=== PATIENT | female | born 1945 | race Caucasian/White ===

== ENCOUNTER 2016-05-02 04:18 | Emergency (ER) | payer MEDICARE, MEDICAID ==
[2016-05-02] MEDS ORDERED: IPRATROPIUM/ALBUTEROL 0.5-2.5 MG/3 ML AMPUL NEB ONE (05:07)
[2016-05-02] MEDS ORDERED: PREDNISONE 20 MG TABLET PO ONE (05:07)
[2016-05-02] MEDS ORDERED: ALBUTEROL SULFATE 0.083% NEB 2.5 MG/3 ML AMPUL NEB SCH (05:23)
[2016-05-02 05:56] LABS: ABSOLUTE LYMPHOCYTES (AUTO) 0.4 10^3/uL (0.5-4.7); ABSOLUTE MONOCYTES (AUTO) 0.6 10^3/uL (0.1-1.4); ABSOLUTE NEUT (AUTO) 7.5 10^3/uL (1.7-8.2); BASOPHILS % (AUTO) 0.3 % (0-2); EOSINOPHILS % (AUTO) 0.1 % (0-6); HEMATOCRIT 41.1 % (36.0-47.0); HEMOGLOBIN 14.3 g/dL (12.0-15.5); HGB HCT DIFFERENCE 1.8; LYMPHOCYTES % (AUTO) 5.3 % (13-45); MEAN CORPUSCULAR HEMOGLOBIN 34.8 pg (27.0-33.4); MEAN CORPUSCULAR HGB CONC 34.8 g/dL (32.0-36.0); MEAN CORPUSCULAR VOLUME 100 fl (80-97); MONOCYTES % (AUTO) 6.5 % (3-13); RED BLOOD COUNT 4.11 10^6/uL (3.72-5.28); RED CELL DISTRIBUTION WIDTH 13.7 % (11.5-14.0); SEGMENTED NEUTROPHILS % (AUTO) 87.8 % (42-78); WHITE BLOOD COUNT 8.5 10^3/uL (4.0-10.5)
[2016-05-02 06:21] LABS: ALANINE AMINOTRANSFERASE 32 U/L (9-52); ALBUMIN 3.6 g/dL (3.5-5.0); ALKALINE PHOSPHATASE 110 U/L (38-126); ANION GAP 13 (5-19); ASPARTATE AMINO TRANSFERASE 36 U/L (14-36); BLOOD UREA NITROGEN 10 mg/dL (7-20); CALCIUM 8.4 mg/dL (8.4-10.2); CARBON DIOXIDE 24 mmol/L (22-30); CHLORIDE 97 mmol/L (98-107); CREATINE KINASE 130 U/L (30-135); CREATININE RESULT 0.86 mg/dL (0.52-1.25); GLUCOSE 205 mg/dL (75-110); POTASSIUM 4.1 mmol/L (3.6-5.0); SODIUM 134.1 mmol/L (137-145); TOTAL PROTEIN 6.2 g/dL (6.3-8.2)
[2016-05-02 06:30] LABS: CREATINE KINASE MB 1.11 ng/mL (<4.55)
[2016-05-02 06:31] LABS: TROPONIN I < 0.012 ng/mL
[2016-05-02] MEDS ORDERED: GABAPENTIN 300 MG CAPSULE PO ONE (09:26)
--- NOTE | 2016-05-02 10:36 | EKG REPORT ---
SEVERITY:- OTHERWISE NORMAL ECG - SINUS TACHYCARDIA LEFT AXIS DEVIATION : Confirmed by: Felipe Glez 02-May-2016 10:35:23
[2016-05-02] MEDS ORDERED: ALBUTEROL SULFATE 0.083% NEB 2.5 MG/3 ML AMPUL NEB ONE (11:14)
--- NOTE | 2016-05-02 11:18 | ER Document Report ---
ED General - General Chief Complaint: COPD Exacerbation Stated Complaint: BREATHING DIFFICULTY TRAVEL OUTSIDE OF THE [place] IN LAST 30 DAYS: No - HPI Patient complains to provider of: shortness of breath neuropathy pain Notes: Patient called EMS Rosy her and she is calling for shortness of breath. Patient has history COPD. Patient was given breathing treatment upon their arrival and arrival here to the ER. Patient otherwise had no signs of hypoxia. Upon my evaluation upon entering the room patient is more less complaining now of her neuropathy states she came to ER because she stopped taking her gabapentin 3 days ago now is having pins and needle pain throughout her entire body. Patient states that she does have her medication at home however did chose not to take it. Patient states that her breathing has improved that the real reason for visit is for evaluation of her neuropathic pain denies any fevers chills nausea vomiting chest pain. Patient does have a history of chronic diarrhea. Patient states that she is continuing to have diarrhea this time. Denies any recent antibiotics. - Related Data Allergies/Adverse Reactions: IVP DYE Allergy (Uncoded 02/21/16 10:36) Generalized rash Past Medical History - Social History Smoking Status: Unknown if Ever Smoked Family History: Reviewed & Not Pertinent - Past Medical History Cardiac Medical History: Reports: Hx Hypertension - meds since 03/2012 Denies: Hx Coronary Artery Disease, Hx Heart Attack Pulmonary Medical History: Reports: Hx COPD, Hx Pneumonia Denies: Hx Asthma, Hx Bronchitis, Hx Tuberculosis Neurological Medical History: Denies: Hx Cerebrovascular Accident, Hx Seizures Endocrine Medical History: Reports: Hx Diabetes Mellitus Type 2 Musculoskeltal Medical History: Reports Hx Arthritis - hands Psychiatric Medical History: Reports: Hx Depression Past Surgical History: Reports: Hx Appendectomy, Hx Hysterectomy, Hx Orthopedic Surgery - left shoulder - Immunizations Immunizations up to date: Yes Hx Diphtheria, Pertussis, Tetanus Vaccination: Yes Hx Pneumococcal Vaccination: 05/27/13 Review of Systems - Review of Systems Constitutional: No symptoms reported EENT: No symptoms reported Cardiovascular: No symptoms reported Respiratory: Short of breath Gastrointestinal: Diarrhea Genitourinary: No symptoms reported Female Genitourinary: No symptoms reported Musculoskeletal: No symptoms reported Skin: No symptoms reported Hematologic/Lymphatic: No symptoms reported Neurological/Psychological: Other - Pins and needles -: Yes All other systems reviewed and negative Physical Exam - Vital signs Vitals: Resp BP Pulse Ox 22 H 151/82 H 93 05/02/16 04:34 05/02/16 04:34 05/02/16 04:34 Interpretation: Normal - General General appearance: Appears well, Alert - HEENT Head: Normocephalic, Atraumatic Eyes: Normal Pupils: PERRL - Respiratory Respiratory status: No respiratory distress Chest status: Nontender Breath sounds: Wheezing Chest palpation: Normal - Cardiovascular Rhythm: Regular Heart sounds: Normal auscultation Murmur: No - Abdominal Inspection: Normal Distension: No distension Bowel sounds: Normal Tenderness: Nontender Organomegaly: No organomegaly - Back Back: Normal, Nontender - Extremities General upper extremity: Normal inspection, Nontender, Normal color, Normal ROM , Normal temperature General lower extremity: Normal inspection, Nontender, Normal color, Normal ROM , Normal temperature, Normal weight bearing. No: Benitez's sign - Neurological Neuro grossly intact: Yes Cognition: Normal Orientation: AAOx4 [place] Coma Scale Eye Opening: Spontaneous [place] Coma Scale Verbal: Oriented [place] Coma Scale Motor: Obeys Commands [place] Coma Scale Total: 15 Speech: Normal Motor strength normal: LUE, RUE, LLE, RLE Sensory: Normal - Psychological Associated symptoms: Normal affect, Normal mood - Skin Skin Temperature: Warm Skin Moisture: Dry Skin Color: Normal Course - Re-evaluation Re-evalutation: 05/02/16 13:43 Patient coming in for evaluation of apparently her neuropathic pain patient also apparently called EMS for shortness of breath. Patient was able ambulate around the ER no signs of hypoxia. Patient's wheezing have improved. Starts patient's neuropathic pain explained patient she will need to start back on her Neurontin. Explained to patient this is a tapering dose Increase gradually. Patient states understanding. Agrees with discharge - Vital Signs Vital signs: Temp Pulse Resp BP Pulse Ox 98.8 F 18 138/85 H 94 05/02/16 09:31 05/02/16 09:31 05/02/16 11:31 05/02/16 11:31 - Laboratory Result Diagrams: 05/02/16 05:45 05/02/16 05:45 Laboratory results interpreted by me: 05/02/16 05/02/16 05:45 05:45 MCV 100 H MCH 34.8 H Seg Neutrophils % 87.8 H Lymphocytes % 5.3 L Absolute Lymphocytes 0.4 L Sodium 134.1 L Chloride 97 L Glucose 205 H Total Protein 6.2 L Discharge - Discharge Clinical Impression: Chronic obstructive pulmonary disease with acute exacerbation, Neuropathy Condition: Good Disposition: HOME, SELF-CARE Instructions: Chronic Obstructive Lung Disease (OM), Neuropathy ([facility]) Additional Instructions: Your examination is consistent day with a COPD exacerbation. Please use albuterol nebulizers every 4 hours for the next 5 days as needed for shortness of breath. Please take prednisone as prescribed. Please restart gabapentin Prescriptions: Albuterol Sulfate [Albuterol Sulfate 2.5mg/3 mL] 2.5 mg IH Q4 #30 ml Prednisone [Deltasone] 60 mg PO DAILY 5 Days Referrals: OZZIE MURRAY MD [Primary Care Provider] - Follow up as needed TOÑA MCLEAN MD [ACTIVE STAFF] - Follow up as needed
[2016-05-02 11:35] VITALS: BP 138/85
== END 2016-05-02 11:50 | disposition home or self-care (01) ==
LOC: ER 04:18
DX: J44.1 Chronic obstructive pulmonary disease with (acute) exacerbation (principal); G62.9 Polyneuropathy, unspecified; E11.40 Type 2 diabetes mellitus with diabetic neuropathy, unspecified; I10 Essential (primary) hypertension; R19.7 Diarrhea, unspecified; Z90.710 Acquired absence of both cervix and uterus
CPT/HCPCS: 93005; 94640 ×2; 99285; 36415; 87045; 87205; 82553; 82550; 85025; 80053; 84484; 87493 ×2; 83880; 71010; 93010; A9270 ×4; J7512; J7620

== ENCOUNTER 2016-05-28 11:08 | Emergency (ER) | payer MEDICARE, MEDICAID ==
--- NOTE | 2016-05-28 13:36 | ER Document Report ---
ED GI/ - General Chief Complaint: Urinary Retention Stated Complaint: URINARY RETENTION Notes: The patient is a 70-year-old female, past medical history urinary retention, recent abdominal surgery, presents with 7 hours of inability to urinate. She had a Gaines that was removed 2 weeks ago. Since then, she has some hesitancy, but is usually able to urinate. She was cathetered at her intermediate at 3 AM today. She was sent to the emergency room for further evaluation and treatment. Patient denies fevers, flank pain, abdominal pain, nausea, vomiting , back pain, numbness or tingling. TRAVEL OUTSIDE OF THE [place] IN LAST 30 DAYS: No - Related Data Allergies/Adverse Reactions: tapentadol [From Nucynta] Allergy (Verified 05/04/16 18:49) Delirium Iodinated Contrast Media - Oral and Adverse Reaction (Verified 05/21/16 13:07) Generalized rash Past Medical History - General Information source: Patient - Social History Smoking Status: Unknown if Ever Smoked Family History: COPD, DM, Malignancy - Brother with throat cancer, Other - Father with tuberculosis - Past Medical History Cardiac Medical History: Reports: Hx Congestive Heart Failure, Hx Coronary Artery Disease, Hx DVT, Hx Hypercholesterolemia, Hx Hypertension - meds since 2012 Denies: Hx Heart Attack Pulmonary Medical History: Reports: Hx Bronchitis, Hx COPD, Hx Pneumonia Denies: Hx Asthma, Hx Tuberculosis Neurological Medical History: Denies: Hx Cerebrovascular Accident, Hx Seizures Endocrine Medical History: Reports: Hx Diabetes Mellitus Type 2 Musculoskeltal Medical History: Reports Hx Arthritis Psychiatric Medical History: Reports: Hx Depression Past Surgical History: Reports: Hx Appendectomy, Hx Hysterectomy, Hx Orthopedic Surgery - left shoulder - Immunizations Immunizations up to date: Yes Hx Diphtheria, Pertussis, Tetanus Vaccination: Yes Hx Pneumococcal Vaccination: 05/27/13 Review of Systems - Review of Systems Notes: REVIEW OF SYSTEMS: CONSTITUTIONAL: -fevers, -chills EENT: -eye pain, -difficulty swallowing, -nasal congestion CARDIOVASCULAR:-chest pain, -syncope. RESPIRATORY: -cough, -SOB GASTROINTESTINAL: -abdominal pain, - nausea, -vomiting, -diarrhea GENITOURINARY: +urinary retention, -dysuria, -hematuria MUSCULOSKELETAL: -back pain, -neck pain SKIN: -rash or skin lesions. HEMATOLOGIC: -easy bruising or bleeding. LYMPHATIC: -swollen, enlarged glands. NEUROLOGICAL: -altered mental status or loss of consciousness, -headache, - neurologic symptoms PSYCHIATRIC: -anxiety, -depression. ALL OTHER SYSTEMS REVIEWED AND NEGATIVE. Physical Exam - Notes Notes: PHYSICAL EXAMINATION: GENERAL: Well-appearing, well-nourished and in no acute distress. HEAD: Atraumatic, normocephalic. EYES: Pupils equal round and reactive to light, extraocular movements intact, sclera anicteric, conjunctiva are normal. ENT: nares patent, oropharynx clear without exudates. Moist mucous membranes. NECK: Normal range of motion, supple without lymphadenopathy LUNGS: Breath sounds clear to auscultation bilaterally and equal. No wheezes rales or rhonchi. HEART: Regular rate and rhythm without murmurs ABDOMEN: Well-healed midline abdominal incision, right sided colostomy with brown stool. EXTREMITIES: Normal range of motion, no pitting or edema. No cyanosis. NEUROLOGICAL: Cranial nerves grossly intact. Normal speech, normal gait. Normal sensory, motor, and reflex exams. PSYCH: Normal mood, normal affect. SKIN: Warm, Dry, normal turgor, no rashes or lesions noted. Course - Re-evaluation Re-evalutation: Gaines placed with return of 900 mL urine. Patient said her urine was tested this morning and there is no signs of UTI. She has no flank pain, fevers or abdominal pain. Will keep Gaines in place and have her follow-up with the urologist. Discharge - Discharge Clinical Impression: Urinary retention Condition: Good Disposition: HOME, SELF-CARE Additional Instructions: Keep the Gaines in place until you are seen by the urologist. Urinary Retention Urinary retention is inability to empty the bladder. It can result from a urine infection, or from mechanical problems such as an enlarged prostate gland or swelling of the urethra. Drugs or alcohol can also lead to urine retention. The condition is usually treated by passage of a catheter. If the physician thinks the problem will continue, the catheter may be left in place for a few days. Sometimes drugs are used to stimulate the bladder if the physician feels that inadequate bladder contraction is the cause. If the condition leading to the retention is a chronic one, such as an enlarged prostate, you will be referred to a specialist for further care. Call the physician or return if you develop fever, flank or back pain, pain on urination, or recurrent difficulty passing the urine. Referrals: TOÑA MCLEAN MD [Primary Care Provider] - Follow up as needed
[2016-05-28 20:45] VITALS: BP 142/82
== END 2016-05-28 19:45 | disposition home or self-care (01) ==
LOC: ER 11:08
DX: R33.9 Retention of urine, unspecified (principal); Z98.890 Other specified postprocedural states; I50.9 Heart failure, unspecified; I25.10 Atherosclerotic heart disease of native coronary artery without angina pectoris; E78.00 Pure hypercholesterolemia, unspecified; I11.0 Hypertensive heart disease with heart failure; J44.9 Chronic obstructive pulmonary disease, unspecified; Z86.718 Personal history of other venous thrombosis and embolism; E11.9 Type 2 diabetes mellitus without complications; Z90.710 Acquired absence of both cervix and uterus
CPT/HCPCS: 99284

== ENCOUNTER 2016-06-28 16:40 | Inpatient (IN) | payer MEDICARE, MEDICAID ==
[2016-06-28 18:42] LABS: AMORPHOUS SEDIMENT,URINE TRACE /HPF; APPEARANCE,URINE TURBID; BILIRUBIN,URINE NEGATIVE (NEGATIVE); GLUCOSE, URINE >=500 mg/dL (NEGATIVE); KETONES,URINE NEGATIVE (NEGATIVE); LEUKOCYTE ESTERASE,URINE LARGE (NEGATIVE); NITRITE,URINE NEGATIVE (NEGATIVE); PROTEIN,URINE 30 mg/dL (NEGATIVE); URINE SPECIFIC GRAVITY 1.015; UROBILINOGEN,URINE NEGATIVE mg/dL (<2.0)
[2016-06-28] MEDS ORDERED: CEFTRIAXONE 1 GM/D5W RTU 50 ML IV ONE (18:45)
--- NOTE | 2016-06-28 18:46 | ER Document Report ---
ED General - General Chief Complaint: Fall Stated Complaint: CHOLOSTOMY BAG CONCERNS Mode of Arrival: Medic Information source: Patient Notes: 71-year-old female presents with complaints of generalized weakness. Patient notes she has been having weakness over the past month, notes yesterday she fell and laid on the ground for approximately 30 hours. Patient notes that it' s not weakness in her legs but rather generalized weakness. Denies any chest pain shortness breath difficult to breathing fevers or abdominal pain TRAVEL OUTSIDE OF THE [place] IN LAST 30 DAYS: No - HPI Onset: Other Onset/Duration: Persistent Quality of pain: Achy Severity: Mild Pain Level: 1 Associated symptoms: Weakness Exacerbated by: Denies Relieved by: Denies Similar symptoms previously: No Recently seen / treated by doctor: No - Related Data Allergies/Adverse Reactions: tapentadol [From Nucynta] Allergy (Verified 05/04/16 18:49) Delirium Iodinated Contrast Media - Oral and Adverse Reaction (Verified 05/21/16 13:07) Generalized rash Past Medical History - Social History Smoking Status: Never Smoker Cigarette use (# per day): No Chew tobacco use (# tins/day): No Smoking Education Provided: No Frequency of alcohol use: Rare Drug Abuse: None Family History: COPD, DM, Malignancy - Brother with throat cancer, Other - Father with tuberculosis - Past Medical History Cardiac Medical History: Reports: Hx Congestive Heart Failure, Hx Coronary Artery Disease, Hx DVT, Hx Hypercholesterolemia, Hx Hypertension - meds since 2012 Denies: Hx Heart Attack Pulmonary Medical History: Reports: Hx Bronchitis, Hx COPD, Hx Pneumonia Denies: Hx Asthma, Hx Tuberculosis Neurological Medical History: Denies: Hx Cerebrovascular Accident, Hx Seizures Endocrine Medical History: Reports: Hx Diabetes Mellitus Type 2 Musculoskeltal Medical History: Reports Hx Arthritis Psychiatric Medical History: Reports: Hx Depression Past Surgical History: Reports: Hx Appendectomy, Hx Hysterectomy, Hx Orthopedic Surgery - left shoulder - Immunizations Immunizations up to date: Yes Hx Diphtheria, Pertussis, Tetanus Vaccination: Yes Hx Pneumococcal Vaccination: 05/27/13 Review of Systems - Review of Systems Notes: REVIEW OF SYSTEMS: CONSTITUTIONAL : Denies fever, chills, or sweats. Denies recent illness. EENT: Denies eye, ear, throat, or mouth pain or symptoms. Denies nasal or sinus congestion or discharge. Denies throat, tongue, or mouth swelling or difficulty swallowing. CARDIOVASCULAR: Denies chest pain. Denies palpitations or racing or irregular heart beat. Denies ankle edema. RESPIRATORY: Denies cough, cold, or chest congestion. Denies shortness of breath, difficulty breathing, or wheezing. GASTROINTESTINAL: Colostomy was opened stool noted all throughout GENITOURINARY: Denies difficulty urinating, painful urination, burning, frequency, blood in urine, or discharge. FEMALE GENITOURINARY: Denies vaginal bleeding, heavy or abnormal periods, irregular periods. Denies vaginal discharge or odor. MUSCULOSKELETAL: Denies back or neck pain or stiffness. Denies joint pain or swelling. SKIN: Denies rash, lesions or sores. HEMATOLOGIC : Denies easy bruising or bleeding. LYMPHATIC: Denies swollen, enlarged glands. NEUROLOGICAL: Admits weakness PSYCHIATRIC: Denies anxiety or stress. Denies depression, suicidal ideation, or homicidal ideation. ALL OTHER SYSTEMS REVIEWED AND NEGATIVE. Dictation was performed using [email or web address] voice recognition software PHYSICAL EXAMINATION: GENERAL: Well-appearing, well-nourished and in no acute distress. HEAD: Atraumatic, normocephalic. EYES: Pupils equal round and reactive to light, extraocular movements intact, conjunctiva are normal. ENT: Nares patent, oropharynx clear without exudates. Moist mucous membranes. NECK: Normal range of motion, supple without lymphadenopathy LUNGS: Breath sounds clear to auscultation bilaterally and equal. No wheezes rales or rhonchi. HEART: Regular rate and rhythm without murmurs ABDOMEN: Soft, nontender, nondistended abdomen. No guarding, no rebound. No masses appreciated. Colostomy was opened stool noted all throughout Female : deferred Musculoskeletal: Normal range of motion, no pitting or edema. No cyanosis. NEUROLOGICAL: Cranial nerves grossly intact. Normal speech, normal gait. Normal sensory, motor exams PSYCH: Normal mood, normal affect. SKIN: Warm, Dry, normal turgor, no rashes or lesions noted. Physical Exam - Vital signs Vitals: Temp Pulse Resp BP Pulse Ox 97.2 F 98 18 148/84 H 96 06/28/16 16:40 06/28/16 16:40 06/28/16 16:40 06/28/16 16:40 06/28/16 16:40 Course - Re-evaluation Re-evalutation: 06/28/16 18:53 Patient noted to have urinary tract infection will be started on antibiotics and believes is the cause of her generalized weakness, lab work pending to rule out rhabdomyolysis 06/28/16 19:20 Patient is noted to have a white count of 22,000, my concern at this time is now for sepsis, septic labs have been ordered patient will be admitted to her primary care physician - Vital Signs Vital signs: Temp Pulse Resp BP Pulse Ox 97.2 F 98 22 H 128/86 H 100 06/28/16 16:40 06/28/16 16:40 06/28/16 18:00 06/28/16 17:13 06/28/16 17:13 - Laboratory Result Diagrams: 06/28/16 18:30 06/28/16 18:30 Laboratory results interpreted by me: 06/28/16 06/28/16 06/28/16 18:20 18:30 18:30 WBC 21.9 H MCV 98 H RDW 15.7 H Abs Neuts (Manual) 14.9 H Abs Monocytes (Manual) 2.0 H Absolute Eos (Manual) 0.7 H Est GFR ( Amer) 59 L Est GFR (Non-Af Amer) 49 L Glucose 266 H Direct Bilirubin 0.5 H Alkaline Phosphatase 142 H Total Protein 9.0 H Urine Protein 30 H Urine Glucose (UA) >=500 H Urine Blood SMALL H Ur Leukocyte Esterase LARGE H Critical Care Note - Critical Care Note Total time excluding time spent on procedures (mins): 31 Comments: 31 minutes of critical care time spent in direct contact evaluating and reevaluating the patient, treating symptoms, reviewing labs and studies and speaking with family and consultants excluding any procedures Discharge - Discharge Clinical Impression: Weakness Sepsis Qualifiers: Sepsis type: sepsis due to unspecified organism Qualified Code(s): A41.9 - Sepsis, unspecified organism UTI (urinary tract infection) Qualifiers: Urinary tract infection type: site unspecified Hematuria presence: with hematuria Qualified Code(s): N39.0 - Urinary tract infection, site not specified Condition: Stable Disposition: ADMITTED INPATIENT Admitting Provider: [facility] Admitted: Telemetry
[2016-06-28 18:50] LABS: HEMATOCRIT 43.2 % (36.0-47.0); HEMOGLOBIN 14.5 g/dL (12.0-15.5); HGB HCT DIFFERENCE 0.3; MEAN CORPUSCULAR HEMOGLOBIN 32.9 pg (27.0-33.4); MEAN CORPUSCULAR HGB CONC 33.5 g/dL (32.0-36.0); MEAN CORPUSCULAR VOLUME 98 fl (80-97); RED BLOOD COUNT 4.39 10^6/uL (3.72-5.28); RED CELL DISTRIBUTION WIDTH 15.7 % (11.5-14.0); WHITE BLOOD COUNT 21.9 10^3/uL (4.0-10.5)
[2016-06-28] MEDS ORDERED: NORMAL SALINE 250 ML IV ONE (18:54)
[2016-06-28 18:58] LABS: ALANINE AMINOTRANSFERASE 44 U/L (9-52); ALBUMIN 3.7 g/dL (3.5-5.0); ALKALINE PHOSPHATASE 142 U/L (38-126); ANION GAP 14 (5-19); ASPARTATE AMINO TRANSFERASE 36 U/L (14-36); BILIRUBIN,DIRECT 0.5 mg/dL (0.0-0.4); BILIRUBIN,TOTAL 1.1 mg/dL (0.2-1.3); BLOOD UREA NITROGEN 14 mg/dL (7-20); CALCIUM 9.9 mg/dL (8.4-10.2); CARBON DIOXIDE 23 mmol/L (22-30); CHLORIDE 101 mmol/L (98-107); CREATINE KINASE 82 U/L (30-135); GLUCOSE 266 mg/dL (75-110); POTASSIUM 4.6 mmol/L (3.6-5.0); SODIUM 138.1 mmol/L (137-145)
[2016-06-28 19:06] LABS: BASOPHILS % (MANUAL) 1 % (0-2); EOSINOPHILS % (MANUAL) 3 % (0-6); LYMPHOCYTES % (MANUAL) 16 % (13-45); TOTAL CELLS COUNTED 100
[2016-06-28 19:08] LABS: ANISOCYTOSIS SLIGHT
[2016-06-28] MEDS ORDERED: NORMAL SALINE 1000 ML 1,000 ML IV ONE (19:23)
[2016-06-28] MEDS ORDERED: NORMAL SALINE 1000 ML 1,000 ML IV PRN (19:23)
[2016-06-28] MEDS ORDERED: IPRATROPIUM/ALBUTEROL 0.5-2.5 MG/3 ML AMPUL NEB PRN (20:44)
[2016-06-28] MEDS ORDERED: GLUCAGON,HUMAN RECOMB 1 MG INJ IM PRN (20:49)
[2016-06-28] MEDS ORDERED: DEXTROSE 40% GEL 15 GM TUBE PO PRN ×2 (20:49)
[2016-06-28] MEDS ORDERED: DEXTROSE 50%-WATER 25 GM/50 ML DISP.SYRIN IV PRN ×2 (20:49)
[2016-06-28] MEDS ORDERED: ERTAPENEM SODIUM INJ 1 GM VIAL IV PRN (20:57)
[2016-06-28] MEDS ORDERED: ERTAPENEM SODIUM 1 GM in NORMAL SALINE 50 ML IV ONE (21:00)
[2016-06-28 21:05] LABS: PROTHROMBIN TIME 13.4 SEC (11.4-15.4)
[2016-06-28 21:06] LABS: PARTIAL THROMBOPLASTIN TIME 30.7 SEC (23.5-35.8)
[2016-06-28 21:08] LABS: LIPASE 287.9 U/L (23-300); PHOSPHORUS 5.1 mg/dL (2.5-4.5)
[2016-06-28 21:21] LABS: CREATINE KINASE MB 2.32 ng/mL (<4.55)
[2016-06-28 21:25] LABS: TROPONIN I < 0.012 ng/mL
[2016-06-28 21:39] LABS: THYROID STIMULATING HORMONE 2.18 uIU/mL (0.47-4.68)
[2016-06-28] MEDS ORDERED: ERTAPENEM SODIUM INJ 1 GM VIAL ONE (22:57)
[2016-06-29 02:05] LABS: CREATINE KINASE MB 1.53 ng/mL (<4.55)
[2016-06-29 02:06] LABS: TROPONIN I < 0.012 ng/mL
[2016-06-29 07:27] LABS: ABSOLUTE BASOPHILS # (AUTO) 0.1 10^3/uL (0.0-0.2); ABSOLUTE EOSINOPHILS # (AUTO) 0.2 10^3/uL (0.0-0.6); ABSOLUTE LYMPHOCYTES (AUTO) 3.4 10^3/uL (0.5-4.7); ABSOLUTE MONOCYTES (AUTO) 1.2 10^3/uL (0.1-1.4); ABSOLUTE NEUT (AUTO) 9.9 10^3/uL (1.7-8.2); BASOPHILS % (AUTO) 0.8 % (0-2); EOSINOPHILS % (AUTO) 1.6 % (0-6); HEMATOCRIT 37.7 % (36.0-47.0); HEMOGLOBIN 12.8 g/dL (12.0-15.5); HGB HCT DIFFERENCE 0.7; LYMPHOCYTES % (AUTO) 23.2 % (13-45); MEAN CORPUSCULAR HEMOGLOBIN 33.4 pg (27.0-33.4); MEAN CORPUSCULAR VOLUME 98 fl (80-97); RED BLOOD COUNT 3.83 10^6/uL (3.72-5.28); RED CELL DISTRIBUTION WIDTH 15.3 % (11.5-14.0); SEGMENTED NEUTROPHILS % (AUTO) 66.4 % (42-78); WHITE BLOOD COUNT 14.9 10^3/uL (4.0-10.5)
[2016-06-29 07:42] LABS: ALANINE AMINOTRANSFERASE 39 U/L (9-52); ALKALINE PHOSPHATASE 107 U/L (38-126); ANION GAP 12 (5-19); ASPARTATE AMINO TRANSFERASE 25 U/L (14-36); BILIRUBIN,DIRECT 0.4 mg/dL (0.0-0.4); BLOOD UREA NITROGEN 11 mg/dL (7-20); CALCIUM 8.9 mg/dL (8.4-10.2); CARBON DIOXIDE 21 mmol/L (22-30); CHLORIDE 107 mmol/L (98-107); CREATINE KINASE 43 U/L (30-135); CREATININE RESULT 0.88 mg/dL (0.52-1.25); Direct HDL 37 mg/dL (>40); GLUCOSE 175 mg/dL (75-110); POTASSIUM 4.3 mmol/L (3.6-5.0); SODIUM 140.4 mmol/L (137-145); TOTAL PROTEIN 7.4 g/dL (6.3-8.2); TRIGLYCERIDES 85 mg/dL (<150)
[2016-06-29 07:53] LABS: CREATINE KINASE MB 0.95 ng/mL (<4.55); DIRECT LDL 48 mg/dL (<100)
[2016-06-29 07:59] LABS: TROPONIN I < 0.012 ng/mL
[2016-06-29] MEDS ORDERED: ERTAPENEM SODIUM 1 GM in NORMAL SALINE 50 ML IV SCH (10:00)
[2016-06-29] MEDS: ENOXAPARIN SODIUM INJ 40 MG/0.4 ML DISP.SYRIN SUBCUT SCH (10:28)
--- NOTE | 2016-06-29 19:02 | PDOC H&P ---
History of Present Illness Admission Date/PCP: 06/28/16 20:45 History of Present Illness: DARCY NAVA is a 71 year old female, she came to the emergency room because of generalized weakness on 4, she apparently fell and was on the ground for approximately 30 hours according to records. In the emergency room she was evaluated and she was found to be septic, the white cell count was 21.9 thousand with a left shift and that was grossly abnormal urinalysis to suggest UTI she was just recently admitted in this hospital on May 04, 2016 she was transferred to long term on May 26, 2016 at that time she had a perforated colon/caecum and she underwent extended right hemicolectomy with end ileostomy bag in place. 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 Past Medical History Cardiac Medical History: Reports: Coronary Artery Disease, DVT, Hyperlipidema, Hypertension - meds since 03/2012 Pulmonary Medical History: Reports: Bronchitis, Chronic Obstructive Pulmonary Disease (COPD), Pneumonia Endocrine Medical History: Reports: Diabetes Mellitus Type 2 GI Medical History: Reports: Other - History of perforated cecum/colon due to pseudomembranous colitis Musculoskeltal Medical History: Reports: Arthritis Psychiatric Medical History: Reports: Depression Hematology: Reports: Anemia Past Surgical History Past Surgical History: Reports: Appendectomy, Hysterectomy, Orthopedic Surgery - left shoulder, Other - Recent history of extended right hemicolectomy with end ileostomy bag Social History Smoking Status: Former Smoker Frequency of Alcohol Use: Occasional Hx Recreational Drug Use: No Drugs: None Hx Prescription Drug Abuse: No Family History Family History: COPD, DM, Malignancy - Brother with throat cancer, Other - Father with tuberculosis Parental Family History Reviewed: Yes Children Family History Reviewed: Yes Sibling(s) Family History Reviewed.: Yes Medication/Allergy Home Medications: Acetaminophen with Codeine [Acetaminophen-Cod #3 Tablet] 1 tab PO Q6HP PRN 06/29 Albuterol Sulfate [Proair HFA Inhalation Aerosol 8.5 gm MDI] 2 puff IH Q4HP PRN 06/29/16 Aspirin [Aspirin 81 mg Chewable Tablet] 81 mg PO DAILY 06/29/16 Calcium Carb/Magnesium Hydrox [Rolaids Chewable Tablet] 2 tab PO 6XD PRN Canagliflozin [Invokana] 300 mg PO DAILY 06/29/16 Cyanocobalamin (Vitamin B-12) [Vitamin B-12 Inj 1000 Mcg/1 ml Vial] 1,000 mcg SQ WE@1000 06/29/16 Duloxetine HCl [Cymbalta] 60 mg PO Q12 06/29/16 Fluticasone/Salmeterol [Advair 250-50 Diskus 14 Dose/Diskus] 1 puff IH BID 06/29 Gabapentin [Neurontin] 1,200 mg PO Q8 06/29/16 Insulin Aspart [Novolog Insulin (Aspart) 100 unit/mL] 10 unit SQ MEALS 06/29/16 Insulin Detemir [Levemir Insulin 100 units/mL] 55 unit SQ BID 06/29/16 Linagliptin [Tradjenta] 5 mg PO DAILY 06/29/16 Losartan Potassium [Cozaar 100 mg Tablet] 100 mg PO DAILY 06/29/16 Metoprolol Succinate [Toprol XL 100 mg Tablet] 100 mg PO DAILY 06/29/16 Omeprazole 40 mg PO DAILY 06/29/16 Pioglitazone HCl [Actos] 30 mg PO QAM 06/29/16 Pitavastatin Calcium [Livalo] 4 mg PO DAILY 06/29/16 Tiotropium [place] [Spiriva Handihaler 5 Cap/Kit (18 Mcg/Cap)] 1 puff IH DAILY 06/29/16 Allergies/Adverse Reactions: tapentadol [From Nucynta] Allergy (Verified 05/04/16 18:49) Delirium Iodinated Contrast Media - Oral and Adverse Reaction (Verified 05/21/16 13:07) Generalized rash Review of Systems Constitutional: PRESENT: fatigue, weakness Eyes: ABSENT: visual disturbances Ears: ABSENT: hearing changes Cardiovascular: ABSENT: chest pain, dyspnea on exertion, edema, orthropnea, palpitations Respiratory: ABSENT: cough, hemoptysis Gastrointestinal: ABSENT: abdominal pain, constipation, diarrhea, hematemesis, hematochezia, nausea, vomiting Genitourinary: ABSENT: dysuria, hematuria Musculoskeletal: ABSENT: joint swelling Integumentary: ABSENT: rash, wounds Neurological: ABSENT: abnormal gait, abnormal speech, confusion, dizziness, focal weakness, syncope Psychiatric: ABSENT: anxiety, depression, homidical ideation, suicidal ideation Endocrine: ABSENT: cold intolerance, heat intolerance, menstrual abnormalities, polydipsia, polyuria Hematologic/Lymphatic: ABSENT: easy bleeding, easy bruising, lymphadenopathy Physical Exam Vital Signs: Temp Pulse Resp BP Pulse Ox 97.9 F 114 H 18 128/58 H 95 06/29/16 04:19 06/29/16 16:12 06/29/16 16:12 06/29/16 04:19 06/29/16 16:12 Intake & Output 06/28/16 06/29/16 06/30/16 06:59 06:59 06:59 Intake Total 100 Balance 100 General appearance: PRESENT: no acute distress Head exam: PRESENT: atraumatic, normocephalic Eye exam: PRESENT: conjunctiva pink, EOMI, PERRLA Neck exam: PRESENT: full ROM Respiratory exam: PRESENT: clear to auscultation [place] Cardiovascular exam: PRESENT: RRR, +S1, +S2 GI/Abdominal exam: PRESENT: soft, other - There is a ileostomy bag Rectal exam: PRESENT: deferred Neurological exam: PRESENT: alert, awake, oriented to person, oriented to place , oriented to time, oriented to situation, CN II-XII grossly intact. ABSENT: motor sensory deficit Psychiatric exam: PRESENT: appropriate affect, normal mood. ABSENT: homicidal ideation, suicidal ideation Skin exam: PRESENT: dry, intact, warm. ABSENT: cyanosis, rash Results Laboratory Results: 06/29/16 07:10 06/29/16 07:10 06/28/16 06/29/16 06/29/16 22:00 00:55 00:55 WBC RBC Hgb Hct MCV MCH MCHC RDW Plt Count Seg Neutrophils % Lymphocytes % Monocytes % Eosinophils % Basophils % Absolute Neutrophils Absolute Lymphocytes Absolute Monocytes Absolute Eosinophils Absolute Basophils Sodium Potassium Chloride Carbon Dioxide Anion Gap BUN Creatinine Est GFR ( Amer) Est GFR (Non-Af Amer) Glucose Lactic Acid 1.2 Calcium Magnesium Total Bilirubin AST ALT Alkaline Phosphatase Ammonia Cancelled < 8.7 L Total Protein Albumin Triglycerides Cholesterol LDL Cholesterol Direct VLDL Cholesterol HDL Cholesterol 06/29/16 06/29/16 07:10 07:10 WBC 14.9 H RBC 3.83 Hgb 12.8 Hct 37.7 MCV 98 H MCH 33.4 MCHC 34.0 RDW 15.3 H Plt Count 312 Seg Neutrophils % 66.4 Lymphocytes % 23.2 Monocytes % 8.0 Eosinophils % 1.6 Basophils % 0.8 Absolute Neutrophils 9.9 H Absolute Lymphocytes 3.4 Absolute Monocytes 1.2 Absolute Eosinophils 0.2 Absolute Basophils 0.1 Sodium 140.4 Potassium 4.3 Chloride 107 Carbon Dioxide 21 L Anion Gap 12 BUN 11 Creatinine 0.88 Est GFR ( Amer) > 60 Est GFR (Non-Af Amer) > 60 Glucose 175 H Lactic Acid Calcium 8.9 Magnesium 2.0 Total Bilirubin 1.0 AST 25 ALT 39 Alkaline Phosphatase 107 Ammonia Total Protein 7.4 Albumin 3.0 L Triglycerides 85 Cholesterol 112.30 LDL Cholesterol Direct 48 VLDL Cholesterol 17.0 HDL Cholesterol 37 L 06/29/16 06/29/16 06/29/16 00:55 00:55 07:10 Creatine Kinase 61 43 CK-MB (CK-2) 1.53 Troponin I < 0.012 06/29/16 07:10 Creatine Kinase CK-MB (CK-2) 0.95 Troponin I < 0.012 Assessment & Plan - Diagnosis (1) Urinary tract infection Qualifiers: Urinary tract infection type: acute cystitis Hematuria presence: without hematuria Qualified Code(s): N30.00 - Acute cystitis without hematuria Is this a current diagnosis for this admission?: YesPlan: Patient with UTI associated with SIRS, she is admitted to the hospital for management (2) Generalized weakness Is this a current diagnosis for this admission?: Yes (3) Ileostomy in place Is this a current diagnosis for this admission?: Yes (4) Type 2 diabetes mellitus with complication Qualifiers: Diabetes mellitus geography faculty member insulin use: with geography faculty member use Qualified Code(s): E11.8 - Type 2 diabetes mellitus with unspecified complications Is this a current diagnosis for this admission?: Yes (5) Systemic inflammatory response syndrome (SIRS) Is this a current diagnosis for this admission?: Yes
--- NOTE | 2016-06-29 20:17 | PDOC PROGRESS REPORT ---
Subjective Progress Note for:: 06/29/16 Subjective:: She was admitted yesterday because of UTI and SIRS, there is problem with IV access with this patient hopefully a PICC line will be inserted in a.m. Physical Exam Vital Signs: Temp Pulse Resp BP Pulse Ox 97.9 F 114 H 18 128/58 H 95 06/29/16 04:19 06/29/16 16:12 06/29/16 16:12 06/29/16 04:19 06/29/16 16:12 Intake & Output 06/28/16 06/29/16 06/30/16 06:59 06:59 06:59 Intake Total 100 862 Balance 100 862 General appearance: PRESENT: no acute distress Eye exam: PRESENT: PERRLA Respiratory exam: PRESENT: clear to auscultation [place] Cardiovascular exam: PRESENT: +S1, +S2 GI/Abdominal exam: PRESENT: soft Neurological exam: PRESENT: alert, CN II-XII grossly intact Results Laboratory Results: 06/29/16 07:10 06/29/16 07:10 06/28/16 06/29/16 06/29/16 22:00 00:55 00:55 WBC RBC Hgb Hct MCV MCH MCHC RDW Plt Count Seg Neutrophils % Lymphocytes % Monocytes % Eosinophils % Basophils % Absolute Neutrophils Absolute Lymphocytes Absolute Monocytes Absolute Eosinophils Absolute Basophils Sodium Potassium Chloride Carbon Dioxide Anion Gap BUN Creatinine Est GFR ( Amer) Est GFR (Non-Af Amer) Glucose Lactic Acid 1.2 Calcium Magnesium Total Bilirubin AST ALT Alkaline Phosphatase Ammonia Cancelled < 8.7 L Total Protein Albumin Triglycerides Cholesterol LDL Cholesterol Direct VLDL Cholesterol HDL Cholesterol 06/29/16 06/29/16 07:10 07:10 WBC 14.9 H RBC 3.83 Hgb 12.8 Hct 37.7 MCV 98 H MCH 33.4 MCHC 34.0 RDW 15.3 H Plt Count 312 Seg Neutrophils % 66.4 Lymphocytes % 23.2 Monocytes % 8.0 Eosinophils % 1.6 Basophils % 0.8 Absolute Neutrophils 9.9 H Absolute Lymphocytes 3.4 Absolute Monocytes 1.2 Absolute Eosinophils 0.2 Absolute Basophils 0.1 Sodium 140.4 Potassium 4.3 Chloride 107 Carbon Dioxide 21 L Anion Gap 12 BUN 11 Creatinine 0.88 Est GFR ( Amer) > 60 Est GFR (Non-Af Amer) > 60 Glucose 175 H Lactic Acid Calcium 8.9 Magnesium 2.0 Total Bilirubin 1.0 AST 25 ALT 39 Alkaline Phosphatase 107 Ammonia Total Protein 7.4 Albumin 3.0 L Triglycerides 85 Cholesterol 112.30 LDL Cholesterol Direct 48 VLDL Cholesterol 17.0 HDL Cholesterol 37 L 06/29/16 06/29/16 06/29/16 00:55 00:55 07:10 Creatine Kinase 61 43 CK-MB (CK-2) 1.53 Troponin I < 0.012 06/29/16 07:10 Creatine Kinase CK-MB (CK-2) 0.95 Troponin I < 0.012 Assessment & Plan - Diagnosis (1) Urinary tract infection Qualifiers: Urinary tract infection type: acute cystitis Hematuria presence: without hematuria Qualified Code(s): N30.00 - Acute cystitis without hematuria Is this a current diagnosis for this admission?: Yes (2) Generalized weakness Is this a current diagnosis for this admission?: Yes (3) Ileostomy in place Is this a current diagnosis for this admission?: Yes (4) Type 2 diabetes mellitus with complication Qualifiers: 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
[2016-06-29] MEDS: ERTAPENEM SODIUM 1 GM in NORMAL SALINE 50 ML IV SCH (21:32)
[2016-06-29] MEDS: INSULIN LISPRO 100 UNIT/ML 3 ML VIAL SUBCUT PRN (21:38)
[2016-06-29] MEDS ORDERED: CIPROFLOXACIN HCL 500 MG TABLET PO ONE (21:45)
[2016-06-29] MEDS: CIPROFLOXACIN HCL 500 MG TABLET PO SCH (22:06)
[2016-06-30 04:51] LABS: ABSOLUTE BASOPHILS # (AUTO) 0.1 10^3/uL (0.0-0.2); ABSOLUTE EOSINOPHILS # (AUTO) 0.3 10^3/uL (0.0-0.6); ABSOLUTE LYMPHOCYTES (AUTO) 2.1 10^3/uL (0.5-4.7); ABSOLUTE MONOCYTES (AUTO) 0.6 10^3/uL (0.1-1.4); ABSOLUTE NEUT (AUTO) 4.8 10^3/uL (1.7-8.2); BASOPHILS % (AUTO) 0.9 % (0-2); EOSINOPHILS % (AUTO) 3.9 % (0-6); HEMOGLOBIN 11.4 g/dL (12.0-15.5); HGB HCT DIFFERENCE 1.2; MEAN CORPUSCULAR HEMOGLOBIN 33.5 pg (27.0-33.4); MEAN CORPUSCULAR HGB CONC 34.4 g/dL (32.0-36.0); MEAN CORPUSCULAR VOLUME 97 fl (80-97); RED CELL DISTRIBUTION WIDTH 15.3 % (11.5-14.0); SEGMENTED NEUTROPHILS % (AUTO) 60.2 % (42-78); WHITE BLOOD COUNT 7.9 10^3/uL (4.0-10.5)
[2016-06-30 05:05] LABS: ALANINE AMINOTRANSFERASE 33 U/L (9-52); ALBUMIN 2.6 g/dL (3.5-5.0); ALKALINE PHOSPHATASE 86 U/L (38-126); ANION GAP 9 (5-19); ASPARTATE AMINO TRANSFERASE 19 U/L (14-36); BILIRUBIN,DIRECT 0.4 mg/dL (0.0-0.4); BILIRUBIN,TOTAL 0.8 mg/dL (0.2-1.3); BLOOD UREA NITROGEN 12 mg/dL (7-20); CARBON DIOXIDE 22 mmol/L (22-30); CHLORIDE 105 mmol/L (98-107); CREATININE RESULT 0.72 mg/dL (0.52-1.25); GLUCOSE 177 mg/dL (75-110); MAGNESIUM 1.8 mg/dL (1.6-2.3); POTASSIUM 3.7 mmol/L (3.6-5.0); SODIUM 136.1 mmol/L (137-145); TOTAL PROTEIN 6.5 g/dL (6.3-8.2)
[2016-06-30] MEDS: INSULIN LISPRO 100 UNIT/ML 3 ML VIAL SUBCUT PRN ×4 (08:02→21:47)
[2016-06-30] MEDS: ENOXAPARIN SODIUM INJ 40 MG/0.4 ML DISP.SYRIN SUBCUT SCH (08:03)
[2016-06-30] MEDS: CIPROFLOXACIN HCL 500 MG TABLET PO SCH (10:00)
[2016-06-30] MEDS ORDERED: NORMAL SALINE 10 ML SDV (AFTER EACH USE) IV PRN (10:05)
--- NOTE | 2016-06-30 20:04 | PDOC PROGRESS REPORT ---
Subjective Progress Note for:: 06/30/16 Subjective:: Patient was seen by the bedside, she is on IV antibiotic for UTI and associated systemic inflammatory response syndrome Physical Exam Vital Signs: Temp Pulse Resp BP Pulse Ox 98.1 F 104 H 18 132/71 H 92 06/30/16 15:01 06/30/16 16:25 06/30/16 16:25 06/30/16 15:01 06/30/16 16:25 Intake & Output 06/29/16 06/30/16 07/01/16 06:59 06:59 06:59 Intake Total 100 1122 1320 Output Total 300 Balance 100 1122 1020 Weight 99.1 kg General appearance: PRESENT: no acute distress Eye exam: PRESENT: PERRLA Respiratory exam: PRESENT: clear to auscultation [place] Cardiovascular exam: PRESENT: +S1, +S2 GI/Abdominal exam: PRESENT: soft Neurological exam: PRESENT: alert, CN II-XII grossly intact Results Laboratory Results: 06/30/16 04:36 06/30/16 04:36 06/30/16 06/30/16 04:36 04:36 WBC 7.9 RBC 3.40 L Hgb 11.4 L Hct 33.0 L MCV 97 MCH 33.5 H MCHC 34.4 RDW 15.3 H Plt Count 233 Seg Neutrophils % 60.2 Lymphocytes % 27.0 Monocytes % 8.0 Eosinophils % 3.9 Basophils % 0.9 Absolute Neutrophils 4.8 Absolute Lymphocytes 2.1 Absolute Monocytes 0.6 Absolute Eosinophils 0.3 Absolute Basophils 0.1 Sodium 136.1 L Potassium 3.7 Chloride 105 Carbon Dioxide 22 Anion Gap 9 BUN 12 Creatinine 0.72 Est GFR ( Amer) > 60 Est GFR (Non-Af Amer) > 60 Glucose 177 H Calcium 8.0 L Magnesium 1.8 Total Bilirubin 0.8 AST 19 ALT 33 Alkaline Phosphatase 86 Total Protein 6.5 Albumin 2.6 L 06/29/16 06/29/16 06/29/16 00:55 00:55 07:10 Creatine Kinase 61 43 CK-MB (CK-2) 1.53 Troponin I < 0.012 06/29/16 07:10 Creatine Kinase CK-MB (CK-2) 0.95 Troponin I < 0.012 Impressions: Guidance Fluoroscopy 06/30/16 00:00 IMPRESSION: SUCCESSFUL PLACEMENT OF A 5 FR DUAL LUMEN 41 CM PICC IN THE right basilic VEIN. Interventional Vascular Procedure 06/30/16 00:00 IMPRESSION: SUCCESSFUL PLACEMENT OF A 5 FR DUAL LUMEN 41 CM PICC IN THE right basilic VEIN. PICC Line Insertion 06/30/16 00:00 IMPRESSION: SUCCESSFUL PLACEMENT OF A 5 FR DUAL LUMEN 41 CM PICC IN THE right basilic VEIN. Assessment & Plan - Diagnosis (1) Urinary tract infection Qualifiers: Urinary tract infection type: acute cystitis Hematuria presence: without hematuria Qualified Code(s): N30.00 - Acute cystitis without hematuria Is this a current diagnosis for this admission?: Yes (2) Generalized weakness Is this a current diagnosis for this admission?: Yes (3) Ileostomy in place Is this a current diagnosis for this admission?: Yes (4) Type 2 diabetes mellitus with complication Qualifiers: Diabetes mellitus terminal operator insulin use: with nursing home use Qualified Code(s): E11.8 - Type 2 diabetes mellitus with unspecified complications Is this a current diagnosis for this admission?: Yes (5) Systemic inflammatory response syndrome (SIRS) Is this a current diagnosis for this admission?: Yes - Plan Summary Plan Summary: She will continue IV antibiotic
[2016-06-30] MEDS: ERTAPENEM SODIUM 1 GM in NORMAL SALINE 50 ML IV SCH (21:47)
[2016-06-30] MEDS: NORMAL SALINE 10 ML SDV (SCHEDULED) IV SCH (22:56)
[2016-07-01 06:17] LABS: ABSOLUTE EOSINOPHILS # (AUTO) 0.3 10^3/uL (0.0-0.6); ABSOLUTE LYMPHOCYTES (AUTO) 1.7 10^3/uL (0.5-4.7); ABSOLUTE MONOCYTES (AUTO) 0.5 10^3/uL (0.1-1.4); ABSOLUTE NEUT (AUTO) 3.2 10^3/uL (1.7-8.2); BASOPHILS % (AUTO) 0.5 % (0-2); EOSINOPHILS % (AUTO) 4.5 % (0-6); HEMATOCRIT 31.7 % (36.0-47.0); HEMOGLOBIN 11.1 g/dL (12.0-15.5); HGB HCT DIFFERENCE 1.6; LYMPHOCYTES % (AUTO) 30.1 % (13-45); MEAN CORPUSCULAR HEMOGLOBIN 34.2 pg (27.0-33.4); MEAN CORPUSCULAR VOLUME 98 fl (80-97); MONOCYTES % (AUTO) 8.8 % (3-13); RED BLOOD COUNT 3.25 10^6/uL (3.72-5.28); RED CELL DISTRIBUTION WIDTH 15.1 % (11.5-14.0); SEGMENTED NEUTROPHILS % (AUTO) 56.1 % (42-78); WHITE BLOOD COUNT 5.7 10^3/uL (4.0-10.5)
[2016-07-01 06:41] LABS: ALANINE AMINOTRANSFERASE 30 U/L (9-52); ALBUMIN 2.5 g/dL (3.5-5.0); ALKALINE PHOSPHATASE 81 U/L (38-126); ANION GAP 7 (5-19); ASPARTATE AMINO TRANSFERASE 22 U/L (14-36); BILIRUBIN,DIRECT 0.3 mg/dL (0.0-0.4); BILIRUBIN,TOTAL 0.6 mg/dL (0.2-1.3); BLOOD UREA NITROGEN 6 mg/dL (7-20); CALCIUM 7.8 mg/dL (8.4-10.2); CARBON DIOXIDE 24 mmol/L (22-30); CHLORIDE 108 mmol/L (98-107); CREATININE RESULT 0.61 mg/dL (0.52-1.25); GLUCOSE 164 mg/dL (75-110); POTASSIUM 3.7 mmol/L (3.6-5.0); SODIUM 138.7 mmol/L (137-145); TOTAL PROTEIN 6.3 g/dL (6.3-8.2)
[2016-07-01 06:57] LABS: MAGNESIUM 1.6 mg/dL (1.6-2.3)
[2016-07-01] MEDS: INSULIN LISPRO 100 UNIT/ML 3 ML VIAL SUBCUT PRN ×4 (08:03→22:10)
[2016-07-01] MEDS: ENOXAPARIN SODIUM INJ 40 MG/0.4 ML DISP.SYRIN SUBCUT SCH (08:03)
[2016-07-01] MEDS: NORMAL SALINE 10 ML SDV (SCHEDULED) IV SCH ×2 (10:07→21:54)
--- NOTE | 2016-07-01 17:13 | PDOC PROGRESS REPORT ---
Subjective Progress Note for:: 07/01/16 Subjective:: Patient was seen by the bedside, she does not want to go to rehab after discharge Physical Exam Vital Signs: Temp Pulse Resp BP Pulse Ox 98.2 F 105 H 17 129/68 H 95 07/01/16 16:11 07/01/16 16:11 07/01/16 16:11 07/01/16 16:11 07/01/16 16:11 Intake & Output 06/30/16 07/01/16 07/02/16 06:59 06:59 06:59 Intake Total 1122 3540 600 Output Total 300 500 Balance 1122 3240 100 Weight 99.1 kg 100.5 kg General appearance: PRESENT: no acute distress, well-developed, well-nourished Head exam: PRESENT: atraumatic, normocephalic Eye exam: PRESENT: conjunctiva pink, EOMI, PERRLA. ABSENT: scleral icterus Ear exam: PRESENT: normal external ear exam Mouth exam: PRESENT: moist, tongue midline Neck exam: PRESENT: full ROM. ABSENT: carotid bruit, JVD, lymphadenopathy, thyromegaly Respiratory exam: PRESENT: clear to auscultation [place] Cardiovascular exam: PRESENT: RRR. ABSENT: diastolic murmur, rubs, systolic murmur Pulses: PRESENT: normal dorsalis pedis pul, +2 pedal pulses bilateral Vascular exam: PRESENT: normal capillary refill GI/Abdominal exam: PRESENT: normal bowel sounds, soft. ABSENT: distended, guarding, mass, organolmegaly, rebound, tenderness Rectal exam: PRESENT: deferred Neurological exam: PRESENT: alert, awake, oriented to person, oriented to place , oriented to time, oriented to situation, CN II-XII grossly intact. ABSENT: motor sensory deficit Psychiatric exam: PRESENT: appropriate affect, normal mood. ABSENT: homicidal ideation, suicidal ideation Skin exam: PRESENT: dry, intact, warm. ABSENT: cyanosis, rash Results Laboratory Results: 07/01/16 05:45 07/01/16 05:45 07/01/16 07/01/16 05:45 05:45 WBC 5.7 RBC 3.25 L Hgb 11.1 L Hct 31.7 L MCV 98 H MCH 34.2 H MCHC 35.0 RDW 15.1 H Plt Count 222 Seg Neutrophils % 56.1 Lymphocytes % 30.1 Monocytes % 8.8 Eosinophils % 4.5 Basophils % 0.5 Absolute Neutrophils 3.2 Absolute Lymphocytes 1.7 Absolute Monocytes 0.5 Absolute Eosinophils 0.3 Absolute Basophils 0.0 Sodium 138.7 Potassium 3.7 Chloride 108 H Carbon Dioxide 24 Anion Gap 7 BUN 6 L Creatinine 0.61 Est GFR ( Amer) > 60 Est GFR (Non-Af Amer) > 60 Glucose 164 H Calcium 7.8 L Magnesium 1.6 Total Bilirubin 0.6 AST 22 ALT 30 Alkaline Phosphatase 81 Total Protein 6.3 Albumin 2.5 L 06/29/16 17:37 Abdomen - Post Surgical Site Gram Stain - Final 06/30/16 13:06 Sputum Gram Stain - Final 06/29/16 06/29/16 06/29/16 00:55 00:55 07:10 Creatine Kinase 61 43 CK-MB (CK-2) 1.53 Troponin I < 0.012 06/29/16 07:10 Creatine Kinase CK-MB (CK-2) 0.95 Troponin I < 0.012 Impressions: Guidance Fluoroscopy 06/30/16 00:00 IMPRESSION: SUCCESSFUL PLACEMENT OF A 5 FR DUAL LUMEN 41 CM PICC IN THE right basilic VEIN. Interventional Vascular Procedure 06/30/16 00:00 IMPRESSION: SUCCESSFUL PLACEMENT OF A 5 FR DUAL LUMEN 41 CM PICC IN THE right basilic VEIN. PICC Line Insertion 06/30/16 00:00 IMPRESSION: SUCCESSFUL PLACEMENT OF A 5 FR DUAL LUMEN 41 CM PICC IN THE right basilic VEIN. Assessment & Plan - Diagnosis (1) Urinary tract infection Qualifiers: Urinary tract infection type: acute cystitis Hematuria presence: without hematuria Qualified Code(s): N30.00 - Acute cystitis without hematuria Is this a current diagnosis for this admission?: Yes (2) Generalized weakness Is this a current diagnosis for this admission?: Yes (3) Ileostomy in place Is this a current diagnosis for this admission?: Yes (4) Type 2 diabetes mellitus with complication Qualifiers: Diabetes mellitus ferry terminal agent insulin use: with ferry terminal agent use Qualified Code(s): E11.8 - Type 2 diabetes mellitus with unspecified complications Is this a current diagnosis for this admission?: Yes (5) Systemic inflammatory response syndrome (SIRS) Is this a current diagnosis for this admission?: Yes
[2016-07-01] MEDS: ERTAPENEM SODIUM 1 GM in NORMAL SALINE 50 ML IV SCH (21:54)
[2016-07-02] MEDS: NORMAL SALINE 1000 ML 1,000 ML IV PRN ×2 (08:04→16:41)
[2016-07-02] MEDS: ENOXAPARIN SODIUM INJ 40 MG/0.4 ML DISP.SYRIN SUBCUT SCH (08:06)
[2016-07-02] MEDS: NORMAL SALINE 10 ML SDV (SCHEDULED) IV SCH ×2 (10:12→21:14)
[2016-07-02] MEDS: INSULIN LISPRO 100 UNIT/ML 3 ML VIAL SUBCUT PRN (12:29)
[2016-07-02] MEDS: LINEZOLID 600 MG TABLET PO SCH (18:03)
--- NOTE | 2016-07-02 19:16 | PDOC PROGRESS REPORT ---
Subjective Progress Note for:: 07/02/16 Subjective:: She was seen by the bedside she had positive MRSA in the sputum but chest x-ray was negative for pneumonia she was started on Zyvox Physical Exam Vital Signs: Temp Pulse Resp BP Pulse Ox 97.9 F 89 20 162/72 H 100 07/02/16 15:46 07/02/16 15:46 07/02/16 15:46 07/02/16 15:46 07/02/16 15:46 Intake & Output 07/01/16 07/02/16 07/03/16 06:59 06:59 06:59 Intake Total 3540 3250 1520 Output Total 300 800 Balance 3240 2450 1520 Weight 100.5 kg 100.6 kg General appearance: PRESENT: no acute distress Eye exam: PRESENT: PERRLA Respiratory exam: PRESENT: clear to auscultation [place] Cardiovascular exam: PRESENT: +S1, +S2 GI/Abdominal exam: PRESENT: soft Neurological exam: PRESENT: alert Results Laboratory Results: 07/01/16 05:45 07/01/16 05:45 06/30/16 13:06 Sputum Gram Stain - Final 06/30/16 13:06 Sputum Sputum Culture - Final Mrsa (Meth Resis Staph Aureus) Greatly Reduced Normal Lillie 06/29/16 17:37 Abdomen - Post Surgical Site Gram Stain - Final 06/29/16 17:37 Abdomen - Post Surgical Site Wound Culture - Final Staphylococcus Aureus No Anaerobic Organisms 06/29/16 06/29/16 06/29/16 00:55 00:55 07:10 Creatine Kinase 61 43 CK-MB (CK-2) 1.53 Troponin I < 0.012 06/29/16 07:10 Creatine Kinase CK-MB (CK-2) 0.95 Troponin I < 0.012 Impressions: Guidance Fluoroscopy 06/30/16 00:00 IMPRESSION: SUCCESSFUL PLACEMENT OF A 5 FR DUAL LUMEN 41 CM PICC IN THE right basilic VEIN. Interventional Vascular Procedure 06/30/16 00:00 IMPRESSION: SUCCESSFUL PLACEMENT OF A 5 FR DUAL LUMEN 41 CM PICC IN THE right basilic VEIN. PICC Line Insertion 06/30/16 00:00 IMPRESSION: SUCCESSFUL PLACEMENT OF A 5 FR DUAL LUMEN 41 CM PICC IN THE right basilic VEIN. Chest X-Ray 07/02/16 00:00 IMPRESSION: No acute findings. Assessment & Plan - Diagnosis (1) Urinary tract infection Qualifiers: Urinary tract infection type: acute cystitis Hematuria presence: without hematuria Qualified Code(s): N30.00 - Acute cystitis without hematuria Is this a current diagnosis for this admission?: Yes (2) Generalized weakness Is this a current diagnosis for this admission?: Yes (3) Ileostomy in place Is this a current diagnosis for this admission?: Yes (4) Type 2 diabetes mellitus with complication Qualifiers: Diabetes mellitus usp insulin use: with usp use Qualified Code(s): E11.8 - Type 2 diabetes mellitus with unspecified complications Is this a current diagnosis for this admission?: Yes (5) Systemic inflammatory response syndrome (SIRS) Is this a current diagnosis for this admission?: Yes
[2016-07-02] MEDS: ERTAPENEM SODIUM 1 GM in NORMAL SALINE 50 ML IV SCH (21:14)
[2016-07-02] MEDS: ACETAMINOPHEN 325 MG TABLET PO PRN (21:14)
[2016-07-03] MEDS: LINEZOLID 600 MG TABLET PO SCH ×2 (06:39→17:36)
[2016-07-03] MEDS: ENOXAPARIN SODIUM INJ 40 MG/0.4 ML DISP.SYRIN SUBCUT SCH (08:00)
[2016-07-03] MEDS: NORMAL SALINE 10 ML SDV (SCHEDULED) IV SCH ×2 (09:45→23:02)
[2016-07-03] MEDS: INSULIN LISPRO 100 UNIT/ML 3 ML VIAL SUBCUT PRN (12:18)
[2016-07-03] MEDS: NORMAL SALINE 1000 ML 1,000 ML IV PRN (12:18)
[2016-07-03] MEDS: ACETAMINOPHEN 325 MG TABLET PO PRN (17:38)
--- NOTE | 2016-07-03 19:10 | PDOC PROGRESS REPORT ---
Subjective Progress Note for:: 07/03/16 Subjective:: She was seen by the bedside she will continue antibiotic, she will stay the weekend Physical Exam Vital Signs: Temp Pulse Resp BP Pulse Ox 97.9 F 106 H 18 137/74 H 98 07/03/16 11:37 07/03/16 14:00 07/03/16 11:37 07/03/16 11:37 07/03/16 11:37 Intake & Output 07/02/16 07/03/16 07/04/16 06:59 06:59 06:59 Intake Total 3250 3140 Output Total 800 930 Balance 2450 2210 Weight 100.6 kg 100.6 kg General appearance: PRESENT: no acute distress Eye exam: PRESENT: PERRLA Cardiovascular exam: PRESENT: +S1, +S2 Neurological exam: PRESENT: alert Results Laboratory Results: 07/01/16 05:45 07/01/16 05:45 06/29/16 06/29/16 06/29/16 00:55 00:55 07:10 Creatine Kinase 61 43 CK-MB (CK-2) 1.53 Troponin I < 0.012 06/29/16 07:10 Creatine Kinase CK-MB (CK-2) 0.95 Troponin I < 0.012 Impressions: Guidance Fluoroscopy 06/30/16 00:00 IMPRESSION: SUCCESSFUL PLACEMENT OF A 5 FR DUAL LUMEN 41 CM PICC IN THE right basilic VEIN. Interventional Vascular Procedure 06/30/16 00:00 IMPRESSION: SUCCESSFUL PLACEMENT OF A 5 FR DUAL LUMEN 41 CM PICC IN THE right basilic VEIN. PICC Line Insertion 06/30/16 00:00 IMPRESSION: SUCCESSFUL PLACEMENT OF A 5 FR DUAL LUMEN 41 CM PICC IN THE right basilic VEIN. Chest X-Ray 07/02/16 00:00 IMPRESSION: No acute findings. Assessment & Plan - Diagnosis (1) Urinary tract infection Qualifiers: Urinary tract infection type: acute cystitis Hematuria presence: without hematuria Qualified Code(s): N30.00 - Acute cystitis without hematuria Is this a current diagnosis for this admission?: Yes (2) Generalized weakness Is this a current diagnosis for this admission?: Yes (3) Ileostomy in place Is this a current diagnosis for this admission?: Yes (4) Type 2 diabetes mellitus with complication Qualifiers: Diabetes mellitus strong nitric operator insulin use: with snf use Qualified Code(s): E11.8 - Type 2 diabetes mellitus with unspecified complications Is this a current diagnosis for this admission?: Yes (5) Systemic inflammatory response syndrome (SIRS) Is this a current diagnosis for this admission?: Yes
[2016-07-03] MEDS: ERTAPENEM SODIUM 1 GM in NORMAL SALINE 50 ML IV SCH (21:46)
[2016-07-04] MEDS: LINEZOLID 600 MG TABLET PO SCH ×2 (05:16→18:08)
[2016-07-04] MEDS: NORMAL SALINE 1000 ML 1,000 ML IV PRN ×2 (08:10→16:06)
[2016-07-04] MEDS: ENOXAPARIN SODIUM INJ 40 MG/0.4 ML DISP.SYRIN SUBCUT SCH (08:11)
--- NOTE | 2016-07-04 10:04 | PDOC PROGRESS REPORT ---
Subjective Progress Note for:: 07/04/16 Subjective:: Patient is currently doing well no other events happens Physical Exam Vital Signs: Temp Pulse Resp BP Pulse Ox 97.8 F 101 H 18 154/96 H 99 07/04/16 08:43 07/04/16 08:43 07/04/16 04:39 07/04/16 08:43 07/04/16 08:43 Intake & Output 07/03/16 07/04/16 07/05/16 06:59 06:59 06:59 Intake Total 3140 2820 Output Total 930 400 Balance 2210 2420 Weight 100.6 kg 100.6 kg General appearance: PRESENT: no acute distress, well-developed, well-nourished Head exam: PRESENT: atraumatic, normocephalic Eye exam: PRESENT: conjunctiva pink, EOMI, PERRLA. ABSENT: scleral icterus Ear exam: PRESENT: normal external ear exam Mouth exam: PRESENT: moist, tongue midline Neck exam: PRESENT: full ROM. ABSENT: carotid bruit, JVD, lymphadenopathy, thyromegaly Respiratory exam: PRESENT: clear to auscultation [place] Cardiovascular exam: PRESENT: RRR. ABSENT: diastolic murmur, rubs, systolic murmur Pulses: PRESENT: normal dorsalis pedis pul, +2 pedal pulses bilateral Vascular exam: PRESENT: normal capillary refill GI/Abdominal exam: PRESENT: normal bowel sounds, soft. ABSENT: distended, guarding, mass, organolmegaly, rebound, tenderness Rectal exam: PRESENT: deferred Neurological exam: PRESENT: alert, awake. ABSENT: motor sensory deficit Psychiatric exam: PRESENT: appropriate affect, normal mood. ABSENT: homicidal ideation, suicidal ideation Skin exam: PRESENT: dry, intact, warm. ABSENT: cyanosis, rash Results Laboratory Results: 07/01/16 05:45 07/01/16 05:45 06/29/16 06/29/16 06/29/16 00:55 00:55 07:10 Creatine Kinase 61 43 CK-MB (CK-2) 1.53 Troponin I < 0.012 06/29/16 07:10 Creatine Kinase CK-MB (CK-2) 0.95 Troponin I < 0.012 Impressions: Guidance Fluoroscopy 06/30/16 00:00 IMPRESSION: SUCCESSFUL PLACEMENT OF A 5 FR DUAL LUMEN 41 CM PICC IN THE right basilic VEIN. Interventional Vascular Procedure 06/30/16 00:00 IMPRESSION: SUCCESSFUL PLACEMENT OF A 5 FR DUAL LUMEN 41 CM PICC IN THE right basilic VEIN. PICC Line Insertion 06/30/16 00:00 IMPRESSION: SUCCESSFUL PLACEMENT OF A 5 FR DUAL LUMEN 41 CM PICC IN THE right basilic VEIN. Chest X-Ray 07/02/16 00:00 IMPRESSION: No acute findings. Assessment & Plan - Diagnosis (1) UTI (urinary tract infection) Qualifiers: Urinary tract infection type: site unspecified Hematuria presence: with hematuria Qualified Code(s): N39.0 - Urinary tract infection, site not specified Is this a current diagnosis for this admission?: YesPlan: Continues to current medications continues to monitor the patient (2) Sepsis Is this a current diagnosis for this admission?: Yes (3) Diabetes mellitus type 2 in obese Is this a current diagnosis for this admission?: Yes (4) Hypertension Qualifiers: Hypertension type: essential hypertension Qualified Code(s): I10 - Essential (primary) hypertension Is this a current diagnosis for this admission?: Yes - Time Time Spent with patient: 15-24 minutes Medications reviewed and adjusted accordingly: Yes Within: Other - Inpatient Certification Medical Necessity: Need Close Monitoring Due to Risk of Patient Decompensation - Plan Summary Plan Summary: Continues to current medications continues to monitor the patient
[2016-07-04] MEDS: NORMAL SALINE 10 ML SDV (SCHEDULED) IV SCH ×2 (10:54→21:45)
[2016-07-04] MEDS: INSULIN LISPRO 100 UNIT/ML 3 ML VIAL SUBCUT PRN (11:57)
--- NOTE | 2016-07-04 13:13 | PDOC CONSULTATION ---
Consultation Consult Date: 07/04/16 History of Present Illness Admission Date/PCP: 06/28/16 20:45 Patient complains of: h/o right colon resection with Ileostomy in April 2016 for right sided colitis/ pseudomembranous colitis. Admitted for UTI, Consult for possible Reversal of Ileostomy. Patient presently has no abdominal pain , History of Present Illness: DARCY NAVA is a 71 year old female, she came to the emergency room because of generalized weakness on 4, she apparently fell and was on the ground for approximately 30 hours according to records. In the emergency room she was evaluated and she was found to be septic, the white cell count was 21.9 thousand with a left shift and that was grossly abnormal urinalysis to suggest UTI she was just recently admitted in this hospital on May 04, 2016 she was transferred to residential on May 26, 2016 at that time she had a perforated colon/caecum and she underwent extended right hemicolectomy with end ileostomy bag in place. 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 Past Medical History Cardiac Medical History: Reports: Congestive Heart Failure, Coronary Artery Disease, DVT, Hyperlipidema, Hypertension - meds since 03/2012 Denies: Myocardial Infarction Pulmonary Medical History: Reports: Bronchitis, Chronic Obstructive Pulmonary Disease (COPD), Pneumonia Denies: Asthma, Tuberculosis Neurological Medical History: Denies: Seizures Endocrine Medical History: Reports: Diabetes Mellitus Type 2 GI Medical History: Reports: Other - History of perforated cecum/colon due to pseudomembranous colitis Musculoskeltal Medical History: Reports: Arthritis Psychiatric Medical History: Reports: Depression Hematology: Reports: Anemia Past Surgical History Past Surgical History: Reports: Appendectomy, Hysterectomy, Orthopedic Surgery - left shoulder, Other - Recent history of extended right hemicolectomy with end ileostomy bag Social History Smoking Status: Former Smoker Frequency of Alcohol Use: Occasional Hx Recreational Drug Use: No Drugs: None Hx Prescription Drug Abuse: No Family History Family History: COPD, DM, Malignancy - Brother with throat cancer, Other - Father with tuberculosis Parental Family History Reviewed: Yes Children Family History Reviewed: NA Sibling(s) Family History Reviewed.: No Medication/Allergy Home Medications: Acetaminophen with Codeine [Acetaminophen-Cod #3 Tablet] 1 tab PO Q6HP PRN 06/29 Albuterol Sulfate [Proair HFA Inhalation Aerosol 8.5 gm MDI] 2 puff IH Q4HP PRN 06/29/16 Aspirin [Aspirin 81 mg Chewable Tablet] 81 mg PO DAILY 06/29/16 Calcium Carb/Magnesium Hydrox [Rolaids Chewable Tablet] 2 tab PO 6XD PRN Canagliflozin [Invokana] 300 mg PO DAILY 06/29/16 Cyanocobalamin (Vitamin B-12) [Vitamin B-12 Inj 1000 Mcg/1 ml Vial] 1,000 mcg SQ WE@1000 06/29/16 Duloxetine HCl [Cymbalta] 60 mg PO Q12 06/29/16 Fluticasone/Salmeterol [Advair 250-50 Diskus 14 Dose/Diskus] 1 puff IH BID 06/29 Gabapentin [Neurontin] 1,200 mg PO Q8 06/29/16 Insulin Aspart [Novolog Insulin (Aspart) 100 unit/mL] 10 unit SQ MEALS 06/29/16 Insulin Detemir [Levemir Insulin 100 units/mL] 55 unit SQ BID 06/29/16 Linagliptin [Tradjenta] 5 mg PO DAILY 06/29/16 Losartan Potassium [Cozaar 100 mg Tablet] 100 mg PO DAILY 06/29/16 Metoprolol Succinate [Toprol XL 100 mg Tablet] 100 mg PO DAILY 06/29/16 Omeprazole 40 mg PO DAILY 06/29/16 Pioglitazone HCl [Actos] 30 mg PO QAM 06/29/16 Pitavastatin Calcium [Livalo] 4 mg PO DAILY 06/29/16 Tiotropium West [Spiriva Handihaler 5 Cap/Kit (18 Mcg/Cap)] 1 puff IH DAILY 06/29/16 Allergies/Adverse Reactions: tapentadol [From Nucynta] Allergy (Verified 05/04/16 18:49) Delirium Iodinated Contrast Media - Oral and Adverse Reaction (Verified 05/21/16 13:07) Generalized rash Physical Exam Vital Signs: Temp Pulse Resp BP Pulse Ox 97.8 F 101 H 18 154/96 H 99 07/04/16 08:43 07/04/16 08:43 07/04/16 04:39 07/04/16 08:43 07/04/16 08:43 Intake & Output 07/03/16 07/04/16 07/05/16 06:59 06:59 06:59 Intake Total 3140 2820 240 Output Total 930 400 Balance 2210 2420 240 Weight 100.6 kg 100.6 kg Results Laboratory Results: 07/01/16 05:45 07/01/16 05:45 06/29/16 06/29/16 06/29/16 00:55 00:55 07:10 Creatine Kinase 61 43 CK-MB (CK-2) 1.53 Troponin I < 0.012 06/29/16 07:10 Creatine Kinase CK-MB (CK-2) 0.95 Troponin I < 0.012 Impressions: Guidance Fluoroscopy 06/30/16 00:00 IMPRESSION: SUCCESSFUL PLACEMENT OF A 5 FR DUAL LUMEN 41 CM PICC IN THE right basilic VEIN. Interventional Vascular Procedure 06/30/16 00:00 IMPRESSION: SUCCESSFUL PLACEMENT OF A 5 FR DUAL LUMEN 41 CM PICC IN THE right basilic VEIN. PICC Line Insertion 06/30/16 00:00 IMPRESSION: SUCCESSFUL PLACEMENT OF A 5 FR DUAL LUMEN 41 CM PICC IN THE right basilic VEIN. Chest X-Ray 07/02/16 00:00 IMPRESSION: No acute findings. Assessment & Plan - Diagnosis (1) Colitis Is this a current diagnosis for this admission?: Yes (2) colitis Is this a current diagnosis for this admission?: Yes - Time Time Spent: 50 to 70 Minutes - Plan Summary Plan Summary: Sice patient has current other medical problems - let her get optimized and in the future she needs colonoscopy and plan for Ileocolonic anastamosis when UTI and Pneumonia all optimized. Obtain CT abdomen to evaluate the remaining colon mean time
[2016-07-04] MEDS: ERTAPENEM SODIUM 1 GM in NORMAL SALINE 50 ML IV SCH (21:34)
[2016-07-04] MEDS: ACETAMINOPHEN 325 MG TABLET PO PRN (21:35)
[2016-07-05] MEDS: LINEZOLID 600 MG TABLET PO SCH ×2 (05:39→17:54)
[2016-07-05] MEDS: ENOXAPARIN SODIUM INJ 40 MG/0.4 ML DISP.SYRIN SUBCUT SCH (08:18)
--- NOTE | 2016-07-05 09:28 | PDOC PROGRESS REPORT ---
Subjective Progress Note for:: 07/05/16 Subjective:: Patient is currently doing fair patient seen by the general surgery for the wound and have a CT abdomen and pelvis was ordered and no other acute finding was noticed. Patient is comfortable with the MRSA infections in the sputum No fever overnight no chest pain no shortness of breath and no abdominal pain Physical Exam Vital Signs: Temp Pulse Resp BP Pulse Ox 98.0 F 95 16 150/77 H 99 07/05/16 07:55 07/05/16 07:55 07/05/16 07:55 07/05/16 07:55 07/05/16 07:55 Intake & Output 07/04/16 07/05/16 07/06/16 06:59 06:59 06:59 Intake Total 2820 4541 Output Total 400 600 Balance 2420 3941 Weight 100.6 kg 98 kg General appearance: PRESENT: no acute distress, well-developed, well-nourished Head exam: PRESENT: atraumatic, normocephalic Eye exam: PRESENT: conjunctiva pink, EOMI, PERRLA. ABSENT: scleral icterus Ear exam: PRESENT: normal external ear exam Mouth exam: PRESENT: moist, tongue midline Neck exam: PRESENT: full ROM. ABSENT: carotid bruit, JVD, lymphadenopathy, thyromegaly Respiratory exam: PRESENT: clear to auscultation [place] Cardiovascular exam: PRESENT: RRR. ABSENT: diastolic murmur, rubs, systolic murmur Pulses: PRESENT: normal dorsalis pedis pul, +2 pedal pulses bilateral Vascular exam: PRESENT: normal capillary refill GI/Abdominal exam: PRESENT: normal bowel sounds, soft. ABSENT: distended, guarding, mass, organolmegaly, rebound, tenderness Additonal comments: Open laparotomy wound on the lower side but other than that no other acute draining since Rectal exam: PRESENT: deferred Neurological exam: PRESENT: alert, awake, oriented to person, oriented to place , oriented to time, oriented to situation, CN II-XII grossly intact. ABSENT: motor sensory deficit Psychiatric exam: PRESENT: appropriate affect, normal mood. ABSENT: homicidal ideation, suicidal ideation Skin exam: PRESENT: dry, intact, warm. ABSENT: cyanosis, rash Results Laboratory Results: 07/01/16 05:45 07/01/16 05:45 06/29/16 06/29/16 06/29/16 00:55 00:55 07:10 Creatine Kinase 61 43 CK-MB (CK-2) 1.53 Troponin I < 0.012 06/29/16 07:10 Creatine Kinase CK-MB (CK-2) 0.95 Troponin I < 0.012 Impressions: Guidance Fluoroscopy 06/30/16 00:00 IMPRESSION: SUCCESSFUL PLACEMENT OF A 5 FR DUAL LUMEN 41 CM PICC IN THE right basilic VEIN. Interventional Vascular Procedure 06/30/16 00:00 IMPRESSION: SUCCESSFUL PLACEMENT OF A 5 FR DUAL LUMEN 41 CM PICC IN THE right basilic VEIN. PICC Line Insertion 06/30/16 00:00 IMPRESSION: SUCCESSFUL PLACEMENT OF A 5 FR DUAL LUMEN 41 CM PICC IN THE right basilic VEIN. Chest X-Ray 07/02/16 00:00 IMPRESSION: No acute findings. Abdomen/Pelvis CT 07/04/16 00:00 IMPRESSION: INTERVAL POSTOPERATIVE CHANGE RELATED TO PARTIAL COLECTOMY WITH DIVERTING OSTOMY. NO GROSS COMPLICATION OR ACUTE ABNORMALITY IDENTIFIED. Assessment & Plan - Diagnosis (1) UTI (urinary tract infection) Qualifiers: Urinary tract infection type: site unspecified Hematuria presence: with hematuria Qualified Code(s): N39.0 - Urinary tract infection, site not specified Is this a current diagnosis for this admission?: YesPlan: Continues to current medications continues to monitor the patient (2) Sepsis Is this a current diagnosis for this admission?: YesPlan: Discontinue current IV antibiotic with MRSA coverage (3) Diabetes mellitus type 2 in obese Is this a current diagnosis for this admission?: Yes (4) Hypertension Qualifiers: Hypertension type: essential hypertension Qualified Code(s): I10 - Essential (primary) hypertension Is this a current diagnosis for this admission?: Yes - Time Time Spent with patient: 15-24 minutes Medications reviewed and adjusted accordingly: Yes Anticipated discharge: Other Within: Other - Inpatient Certification Medical Necessity: Need for IV Antibiotics Post Hospital Care: D/C [employer] Documentation - Plan Summary Plan Summary: We will repeat the CBC and Chem-7 in the morning as IV antibiotic and follow with the surgery also
[2016-07-05] MEDS: NORMAL SALINE 10 ML SDV (SCHEDULED) IV SCH ×2 (10:29→22:16)
[2016-07-05] MEDS: NORMAL SALINE 1000 ML 1,000 ML IV PRN ×2 (12:36→22:17)
[2016-07-05] MEDS: INSULIN LISPRO 100 UNIT/ML 3 ML VIAL SUBCUT PRN (12:36)
--- NOTE | 2016-07-05 14:09 | PDOC PROGRESS REPORT ---
Subjective Progress Note for:: 07/05/16 Subjective:: nO PAIN TOLERATING DIET Physical Exam Vital Signs: Temp Pulse Resp BP Pulse Ox 98.2 F 103 H 17 142/79 H 98 07/05/16 12:00 07/05/16 12:00 07/05/16 12:00 07/05/16 12:00 07/05/16 12:00 Intake & Output 07/04/16 07/05/16 07/06/16 06:59 06:59 06:59 Intake Total 2820 4541 500 Output Total 400 600 Balance 2420 3941 500 Weight 100.6 kg 98 kg GI/Abdominal exam: PRESENT: other - Abdomen soft nontender Ileostomy functioning well Results Laboratory Results: 07/01/16 05:45 07/01/16 05:45 06/29/16 06/29/16 06/29/16 00:55 00:55 07:10 Creatine Kinase 61 43 CK-MB (CK-2) 1.53 Troponin I < 0.012 06/29/16 07:10 Creatine Kinase CK-MB (CK-2) 0.95 Troponin I < 0.012 Impressions: Guidance Fluoroscopy 06/30/16 00:00 IMPRESSION: SUCCESSFUL PLACEMENT OF A 5 FR DUAL LUMEN 41 CM PICC IN THE right basilic VEIN. Interventional Vascular Procedure 06/30/16 00:00 IMPRESSION: SUCCESSFUL PLACEMENT OF A 5 FR DUAL LUMEN 41 CM PICC IN THE right basilic VEIN. PICC Line Insertion 06/30/16 00:00 IMPRESSION: SUCCESSFUL PLACEMENT OF A 5 FR DUAL LUMEN 41 CM PICC IN THE right basilic VEIN. Abdomen/Pelvis CT 07/04/16 00:00 IMPRESSION: INTERVAL POSTOPERATIVE CHANGE RELATED TO PARTIAL COLECTOMY WITH DIVERTING OSTOMY. NO GROSS COMPLICATION OR ACUTE ABNORMALITY IDENTIFIED. Chest X-Ray 07/05/16 00:00 IMPRESSION: NO ACUTE RADIOGRAPHIC FINDING IN THE CHEST. Assessment & Plan - Diagnosis (1) Colitis Is this a current diagnosis for this admission?: Yes (2) colitis Is this a current diagnosis for this admission?: Yes (3) Ileostomy in place Is this a current diagnosis for this admission?: Yes - Plan Summary Plan Summary: Patient had right colectomy for for C diff colitis Has well functioning Ileostomy No urgency for Reversla og Ileostomy which will require laparotomy with Ileo- colonic anastamosis which will be very extensive for given present medical problems. Recommend - Medical optimization Follow up surgical clinic as an out patient.
[2016-07-05] MEDS: ERTAPENEM SODIUM 1 GM in NORMAL SALINE 50 ML IV SCH (22:16)
[2016-07-05] MEDS: ACETAMINOPHEN 325 MG TABLET PO PRN (22:16)
[2016-07-06] MEDS: LINEZOLID 600 MG TABLET PO SCH ×2 (05:42→17:41)
[2016-07-06 06:11] LABS: HEMATOCRIT 33.3 % (36.0-47.0); HEMOGLOBIN 11.6 g/dL (12.0-15.5); HGB HCT DIFFERENCE 1.5; MEAN CORPUSCULAR HEMOGLOBIN 33.4 pg (27.0-33.4); MEAN CORPUSCULAR HGB CONC 34.8 g/dL (32.0-36.0); MEAN CORPUSCULAR VOLUME 96 fl (80-97); RED BLOOD COUNT 3.47 10^6/uL (3.72-5.28); RED CELL DISTRIBUTION WIDTH 14.8 % (11.5-14.0); WHITE BLOOD COUNT 3.5 10^3/uL (4.0-10.5)
[2016-07-06 06:37] LABS: ANION GAP 11 (5-19); BLOOD UREA NITROGEN 2 mg/dL (7-20); CALCIUM 8.2 mg/dL (8.4-10.2); CARBON DIOXIDE 24 mmol/L (22-30); CHLORIDE 107 mmol/L (98-107); CREATININE RESULT 0.59 mg/dL (0.52-1.25); GLUCOSE 121 mg/dL (75-110); SODIUM 141.8 mmol/L (137-145)
[2016-07-06 06:43] LABS: BASOPHILS % (MANUAL) 0 % (0-2); EOSINOPHILS % (MANUAL) 3 % (0-6); LYMPHOCYTES % (MANUAL) 41 % (13-45); TOTAL CELLS COUNTED 100
[2016-07-06 06:44] LABS: ANISOCYTOSIS SLIGHT
[2016-07-06 06:46] LABS: PLATELET CLUMPS PRESENT; POIKILOCYTOSIS SLIGHT
[2016-07-06] MEDS ORDERED: POTASSIUM CHLORIDE 10 MEQ TABLET.SA PO ONE (07:00)
[2016-07-06] MEDS: ENOXAPARIN SODIUM INJ 40 MG/0.4 ML DISP.SYRIN SUBCUT SCH (08:36)
[2016-07-06] MEDS: NORMAL SALINE 10 ML SDV (SCHEDULED) IV SCH ×2 (10:31→23:50)
[2016-07-06] MEDS: INSULIN LISPRO 100 UNIT/ML 3 ML VIAL SUBCUT PRN (14:22)
[2016-07-06] MEDS: NORMAL SALINE 1000 ML 1,000 ML IV PRN (17:41)
--- NOTE | 2016-07-06 19:41 | PDOC PROGRESS REPORT ---
Subjective Progress Note for:: 07/06/16 Physical Exam Vital Signs: Temp Pulse Resp BP Pulse Ox 98.4 F 100 17 149/83 H 97 07/06/16 16:47 07/06/16 16:47 07/06/16 16:47 07/06/16 16:47 07/06/16 16:47 Intake & Output 07/05/16 07/06/16 07/07/16 06:59 06:59 06:59 Intake Total 4541 3745 1884 Output Total 600 500 900 Balance 3941 3245 984 Weight 98 kg 98 kg Results Laboratory Results: 07/06/16 05:45 07/06/16 05:45 07/06/16 07/06/16 05:45 05:45 WBC 3.5 L RBC 3.47 L Hgb 11.6 L Hct 33.3 L MCV 96 MCH 33.4 MCHC 34.8 RDW 14.8 H Plt Count 216 Seg Neutrophils % Not Reportable Lymphocytes % Not Reportable Monocytes % Not Reportable Eosinophils % Not Reportable Basophils % Not Reportable Absolute Neutrophils Not Reportable Absolute Lymphocytes Not Reportable Absolute Monocytes Not Reportable Absolute Eosinophils Not Reportable Absolute Basophils Not Reportable Sodium 141.8 Potassium 3.0 L* Chloride 107 Carbon Dioxide 24 Anion Gap 11 BUN 2 L Creatinine 0.59 Est GFR ( Amer) > 60 Est GFR (Non-Af Amer) > 60 Glucose 121 H Calcium 8.2 L 06/29/16 06/29/16 06/29/16 00:55 00:55 07:10 Creatine Kinase 61 43 CK-MB (CK-2) 1.53 Troponin I < 0.012 06/29/16 07:10 Creatine Kinase CK-MB (CK-2) 0.95 Troponin I < 0.012 Impressions: Guidance Fluoroscopy 06/30/16 00:00 IMPRESSION: SUCCESSFUL PLACEMENT OF A 5 FR DUAL LUMEN 41 CM PICC IN THE right basilic VEIN. Interventional Vascular Procedure 06/30/16 00:00 IMPRESSION: SUCCESSFUL PLACEMENT OF A 5 FR DUAL LUMEN 41 CM PICC IN THE right basilic VEIN. PICC Line Insertion 06/30/16 00:00 IMPRESSION: SUCCESSFUL PLACEMENT OF A 5 FR DUAL LUMEN 41 CM PICC IN THE right basilic VEIN. Abdomen/Pelvis CT 07/04/16 00:00 IMPRESSION: INTERVAL POSTOPERATIVE CHANGE RELATED TO PARTIAL COLECTOMY WITH DIVERTING OSTOMY. NO GROSS COMPLICATION OR ACUTE ABNORMALITY IDENTIFIED. Chest X-Ray 07/05/16 00:00 IMPRESSION: NO ACUTE RADIOGRAPHIC FINDING IN THE CHEST. Assessment & Plan - Diagnosis (1) Urinary tract infection Qualifiers: Urinary tract infection type: acute cystitis Hematuria presence: without hematuria Qualified Code(s): N30.00 - Acute cystitis without hematuria Is this a current diagnosis for this admission?: Yes (2) Generalized weakness Is this a current diagnosis for this admission?: Yes (3) Ileostomy in place Is this a current diagnosis for this admission?: Yes (4) Type 2 diabetes mellitus with complication Qualifiers: Diabetes mellitus intermediate designer insulin use: with residential use Qualified Code(s): E11.8 - Type 2 diabetes mellitus with unspecified complications Is this a current diagnosis for this admission?: Yes (5) Systemic inflammatory response syndrome (SIRS) Is this a current diagnosis for this admission?: Yes
[2016-07-07] MEDS: LINEZOLID 600 MG TABLET PO SCH ×2 (05:52→17:31)
[2016-07-07 07:10] LABS: ANION GAP 11 (5-19); BLOOD UREA NITROGEN 2 mg/dL (7-20); CALCIUM 8.2 mg/dL (8.4-10.2); CARBON DIOXIDE 24 mmol/L (22-30); CHLORIDE 108 mmol/L (98-107); CREATININE RESULT 0.58 mg/dL (0.52-1.25); GLUCOSE 134 mg/dL (75-110); SODIUM 143.1 mmol/L (137-145)
[2016-07-07 07:12] LABS: POTASSIUM 3.1 mmol/L (3.6-5.0)
[2016-07-07] MEDS: ENOXAPARIN SODIUM INJ 40 MG/0.4 ML DISP.SYRIN SUBCUT SCH (09:33)
[2016-07-07] MEDS: NORMAL SALINE 10 ML SDV (SCHEDULED) IV SCH ×2 (09:40→21:58)
[2016-07-07] MEDS: INSULIN LISPRO 100 UNIT/ML 3 ML VIAL SUBCUT PRN ×2 (17:30→22:30)
[2016-07-07] MEDS: NORMAL SALINE 1000 ML 1,000 ML IV PRN (17:31)
--- NOTE | 2016-07-07 20:49 | PDOC PROGRESS REPORT ---
Subjective Progress Note for:: 07/07/16 Subjective:: She was supposed to be transferred to longterm but not she is wheezing with acute COPD exacerbation Physical Exam Vital Signs: Temp Pulse Resp BP Pulse Ox 98.6 F 95 16 145/81 H 99 07/07/16 19:16 07/07/16 19:16 07/07/16 19:16 07/07/16 19:16 07/07/16 19:16 Intake & Output 07/06/16 07/07/16 07/08/16 06:59 06:59 06:59 Intake Total 3745 4321 1472 Output Total 500 2900 Balance 3245 1421 1472 Weight 98 kg 98 kg General appearance: PRESENT: severe distress Eye exam: PRESENT: PERRLA Respiratory exam: PRESENT: wheezes Cardiovascular exam: PRESENT: +S1, +S2 GI/Abdominal exam: PRESENT: soft Neurological exam: PRESENT: alert Results Laboratory Results: 07/06/16 05:45 07/07/16 05:45 07/07/16 05:45 Sodium 143.1 Potassium 3.1 L Chloride 108 H Carbon Dioxide 24 Anion Gap 11 BUN 2 L Creatinine 0.58 Est GFR ( Amer) > 60 Est GFR (Non-Af Amer) > 60 Glucose 134 H Calcium 8.2 L 06/29/16 06/29/16 06/29/16 00:55 00:55 07:10 Creatine Kinase 61 43 CK-MB (CK-2) 1.53 Troponin I < 0.012 06/29/16 07:10 Creatine Kinase CK-MB (CK-2) 0.95 Troponin I < 0.012 Impressions: Guidance Fluoroscopy 06/30/16 00:00 IMPRESSION: SUCCESSFUL PLACEMENT OF A 5 FR DUAL LUMEN 41 CM PICC IN THE right basilic VEIN. Interventional Vascular Procedure 06/30/16 00:00 IMPRESSION: SUCCESSFUL PLACEMENT OF A 5 FR DUAL LUMEN 41 CM PICC IN THE right basilic VEIN. PICC Line Insertion 06/30/16 00:00 IMPRESSION: SUCCESSFUL PLACEMENT OF A 5 FR DUAL LUMEN 41 CM PICC IN THE right basilic VEIN. Abdomen/Pelvis CT 07/04/16 00:00 IMPRESSION: INTERVAL POSTOPERATIVE CHANGE RELATED TO PARTIAL COLECTOMY WITH DIVERTING OSTOMY. NO GROSS COMPLICATION OR ACUTE ABNORMALITY IDENTIFIED. Chest X-Ray 07/05/16 00:00 IMPRESSION: NO ACUTE RADIOGRAPHIC FINDING IN THE CHEST. Assessment & Plan - Diagnosis (1) Urinary tract infection Qualifiers: Urinary tract infection type: acute cystitis Hematuria presence: without hematuria Qualified Code(s): N30.00 - Acute cystitis without hematuria Is this a current diagnosis for this admission?: Yes (2) Generalized weakness Is this a current diagnosis for this admission?: Yes (3) Ileostomy in place Is this a current diagnosis for this admission?: Yes (4) Type 2 diabetes mellitus with complication Qualifiers: Diabetes mellitus long-term insulin use: with long-term use Qualified Code(s): E11.8 - Type 2 diabetes mellitus with unspecified complications Is this a current diagnosis for this admission?: Yes (5) Systemic inflammatory response syndrome (SIRS) Is this a current diagnosis for this admission?: Yes (6) COPD with acute exacerbation Is this a current diagnosis for this admission?: YesPlan: Start IV Solu Medrol
[2016-07-07] MEDS: METHYLPREDNISOLONE INJ 125 MG/2 ML SDV IV SCH (21:58)
[2016-07-08] MEDS: LINEZOLID 600 MG TABLET PO SCH ×2 (05:43→18:14)
[2016-07-08] MEDS: METHYLPREDNISOLONE INJ 125 MG/2 ML SDV IV SCH ×3 (05:43→21:30)
[2016-07-08 06:39] LABS: ANION GAP 12 (5-19); BLOOD UREA NITROGEN 5 mg/dL (7-20); CALCIUM 8.4 mg/dL (8.4-10.2); CARBON DIOXIDE 22 mmol/L (22-30); CHLORIDE 106 mmol/L (98-107); CREATININE RESULT 0.61 mg/dL (0.52-1.25); GLUCOSE 260 mg/dL (75-110); POTASSIUM 3.7 mmol/L (3.6-5.0); SODIUM 139.5 mmol/L (137-145)
[2016-07-08] MEDS: ENOXAPARIN SODIUM INJ 40 MG/0.4 ML DISP.SYRIN SUBCUT SCH (07:53)
[2016-07-08] MEDS: NORMAL SALINE 10 ML SDV (SCHEDULED) IV SCH ×2 (09:36→21:30)
[2016-07-08] MEDS: INSULIN LISPRO 100 UNIT/ML 3 ML VIAL SUBCUT PRN ×3 (11:55→21:29)
--- NOTE | 2016-07-08 18:01 | PDOC PROGRESS REPORT ---
Subjective Progress Note for:: 07/08/16 Subjective:: Patient was started on IV Solu-Medrol yesterday because of acute COPD Physical Exam Vital Signs: Temp Pulse Resp BP Pulse Ox 98.0 F 105 H 18 146/90 H 99 07/08/16 15:23 07/08/16 15:23 07/08/16 15:23 07/08/16 15:23 07/08/16 15:23 Intake & Output 07/07/16 07/08/16 07/09/16 06:59 06:59 06:59 Intake Total 4321 3242 Output Total 2900 600 Balance 1421 2642 Weight 98 kg 98.9 kg General appearance: PRESENT: mild distress Eye exam: PRESENT: PERRLA Respiratory exam: PRESENT: wheezes Cardiovascular exam: PRESENT: +S1, +S2 GI/Abdominal exam: PRESENT: soft Results Laboratory Results: 07/06/16 05:45 07/08/16 05:45 07/08/16 05:45 Sodium 139.5 Potassium 3.7 Chloride 106 Carbon Dioxide 22 Anion Gap 12 BUN 5 L Creatinine 0.61 Est GFR ( Amer) > 60 Est GFR (Non-Af Amer) > 60 Glucose 260 H Calcium 8.4 06/29/16 06/29/16 06/29/16 00:55 00:55 07:10 Creatine Kinase 61 43 CK-MB (CK-2) 1.53 Troponin I < 0.012 06/29/16 07:10 Creatine Kinase CK-MB (CK-2) 0.95 Troponin I < 0.012 Impressions: Guidance Fluoroscopy 06/30/16 00:00 IMPRESSION: SUCCESSFUL PLACEMENT OF A 5 FR DUAL LUMEN 41 CM PICC IN THE right basilic VEIN. Interventional Vascular Procedure 06/30/16 00:00 IMPRESSION: SUCCESSFUL PLACEMENT OF A 5 FR DUAL LUMEN 41 CM PICC IN THE right basilic VEIN. PICC Line Insertion 06/30/16 00:00 IMPRESSION: SUCCESSFUL PLACEMENT OF A 5 FR DUAL LUMEN 41 CM PICC IN THE right basilic VEIN. Abdomen/Pelvis CT 07/04/16 00:00 IMPRESSION: INTERVAL POSTOPERATIVE CHANGE RELATED TO PARTIAL COLECTOMY WITH DIVERTING OSTOMY. NO GROSS COMPLICATION OR ACUTE ABNORMALITY IDENTIFIED. Chest X-Ray 07/05/16 00:00 IMPRESSION: NO ACUTE RADIOGRAPHIC FINDING IN THE CHEST. Assessment & Plan - Diagnosis (1) Urinary tract infection Qualifiers: Urinary tract infection type: acute cystitis Hematuria presence: without hematuria Qualified Code(s): N30.00 - Acute cystitis without hematuria Is this a current diagnosis for this admission?: Yes (2) Generalized weakness Is this a current diagnosis for this admission?: Yes (3) Ileostomy in place Is this a current diagnosis for this admission?: Yes (4) Type 2 diabetes mellitus with complication Qualifiers: Diabetes mellitus care home insulin use: with roasterman use Qualified Code(s): E11.8 - Type 2 diabetes mellitus with unspecified complications Is this a current diagnosis for this admission?: Yes (5) Systemic inflammatory response syndrome (SIRS) Is this a current diagnosis for this admission?: Yes (6) COPD with acute exacerbation Is this a current diagnosis for this admission?: YesPlan: Start IV Solu Medrol
[2016-07-08] MEDS: ACETAMINOPHEN 325 MG TABLET PO PRN (20:20)
[2016-07-08] MEDS: NORMAL SALINE 1000 ML 1,000 ML IV PRN (20:22)
[2016-07-09] MEDS: METHYLPREDNISOLONE INJ 125 MG/2 ML SDV IV SCH ×3 (05:40→21:53)
[2016-07-09] MEDS: NORMAL SALINE 1000 ML 1,000 ML IV PRN ×2 (05:40→21:54)
[2016-07-09] MEDS: LINEZOLID 600 MG TABLET PO SCH (05:40)
[2016-07-09] MEDS: ENOXAPARIN SODIUM INJ 40 MG/0.4 ML DISP.SYRIN SUBCUT SCH (08:20)
[2016-07-09] MEDS: INSULIN LISPRO 100 UNIT/ML 3 ML VIAL SUBCUT PRN ×4 (08:56→21:51)
[2016-07-09] MEDS: NORMAL SALINE 10 ML SDV (SCHEDULED) IV SCH ×2 (10:51→21:53)
[2016-07-09] MEDS: ACETAMINOPHEN 325 MG TABLET PO PRN (18:05)
--- NOTE | 2016-07-09 21:01 | PDOC PROGRESS REPORT ---
Subjective Progress Note for:: 07/09/16 Subjective:: Patient Solu-Medrol dose to be reduced Physical Exam Vital Signs: Temp Pulse Resp BP Pulse Ox 97.7 F 73 18 160/78 H 99 07/09/16 16:21 07/09/16 19:00 07/09/16 16:21 07/09/16 16:21 07/09/16 16:21 Intake & Output 07/08/16 07/09/16 07/10/16 06:59 06:59 06:59 Intake Total 3242 4763 1900 Output Total 600 450 900 Balance 2642 4313 1000 Weight 98.9 kg 98.7 kg Head exam: PRESENT: atraumatic, normocephalic Eye exam: PRESENT: conjunctiva pink, EOMI, PERRLA. ABSENT: scleral icterus Ear exam: PRESENT: normal external ear exam Mouth exam: PRESENT: moist, tongue midline Neck exam: PRESENT: full ROM Respiratory exam: PRESENT: wheezes Cardiovascular exam: PRESENT: RRR, +S1, +S2 Vascular exam: PRESENT: normal capillary refill GI/Abdominal exam: PRESENT: normal bowel sounds, soft Rectal exam: PRESENT: deferred Neurological exam: PRESENT: alert, awake, oriented to person, oriented to place , oriented to time, oriented to situation, CN II-XII grossly intact Skin exam: PRESENT: dry, intact, warm. ABSENT: cyanosis, rash Results Laboratory Results: 07/06/16 05:45 07/08/16 05:45 06/29/16 06/29/16 06/29/16 00:55 00:55 07:10 Creatine Kinase 61 43 CK-MB (CK-2) 1.53 Troponin I < 0.012 06/29/16 07:10 Creatine Kinase CK-MB (CK-2) 0.95 Troponin I < 0.012 Impressions: Guidance Fluoroscopy 06/30/16 00:00 IMPRESSION: SUCCESSFUL PLACEMENT OF A 5 FR DUAL LUMEN 41 CM PICC IN THE right basilic VEIN. Interventional Vascular Procedure 06/30/16 00:00 IMPRESSION: SUCCESSFUL PLACEMENT OF A 5 FR DUAL LUMEN 41 CM PICC IN THE right basilic VEIN. PICC Line Insertion 06/30/16 00:00 IMPRESSION: SUCCESSFUL PLACEMENT OF A 5 FR DUAL LUMEN 41 CM PICC IN THE right basilic VEIN. Abdomen/Pelvis CT 07/04/16 00:00 IMPRESSION: INTERVAL POSTOPERATIVE CHANGE RELATED TO PARTIAL COLECTOMY WITH DIVERTING OSTOMY. NO GROSS COMPLICATION OR ACUTE ABNORMALITY IDENTIFIED. Chest X-Ray 07/05/16 00:00 IMPRESSION: NO ACUTE RADIOGRAPHIC FINDING IN THE CHEST. 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
[2016-07-10] MEDS: ACETAMINOPHEN 325 MG TABLET PO PRN ×2 (00:17→20:38)
[2016-07-10] MEDS: METHYLPREDNISOLONE INJ 125 MG/2 ML SDV IV SCH ×3 (05:21→22:21)
[2016-07-10] MEDS: INSULIN LISPRO 100 UNIT/ML 3 ML VIAL SUBCUT PRN ×4 (08:30→22:43)
[2016-07-10] MEDS: ENOXAPARIN SODIUM INJ 40 MG/0.4 ML DISP.SYRIN SUBCUT SCH (08:31)
[2016-07-10] MEDS: NORMAL SALINE 10 ML SDV (SCHEDULED) IV SCH ×2 (10:11→22:21)
--- NOTE | 2016-07-10 20:55 | PDOC PROGRESS REPORT ---
Subjective Progress Note for:: 07/10/16 Subjective:: Patient is improving on Solu-Medrol she has less wheezing Physical Exam Vital Signs: Temp Pulse Resp BP Pulse Ox 98.4 F 69 18 167/80 H 100 07/10/16 15:50 07/10/16 19:00 07/10/16 15:50 07/10/16 15:50 07/10/16 15:50 Intake & Output 07/09/16 07/10/16 07/11/16 06:59 06:59 06:59 Intake Total 4763 3400 1440 Output Total 450 2250 Balance 4313 1150 1440 Weight 98.7 kg 100.8 kg General appearance: PRESENT: no acute distress Eye exam: PRESENT: PERRLA Respiratory exam: PRESENT: wheezes Cardiovascular exam: PRESENT: +S1, +S2 GI/Abdominal exam: PRESENT: soft Results Laboratory Results: 07/06/16 05:45 07/08/16 05:45 06/29/16 06/29/16 06/29/16 00:55 00:55 07:10 Creatine Kinase 61 43 CK-MB (CK-2) 1.53 Troponin I < 0.012 06/29/16 07:10 Creatine Kinase CK-MB (CK-2) 0.95 Troponin I < 0.012 Impressions: Guidance Fluoroscopy 06/30/16 00:00 IMPRESSION: SUCCESSFUL PLACEMENT OF A 5 FR DUAL LUMEN 41 CM PICC IN THE right basilic VEIN. Interventional Vascular Procedure 06/30/16 00:00 IMPRESSION: SUCCESSFUL PLACEMENT OF A 5 FR DUAL LUMEN 41 CM PICC IN THE right basilic VEIN. PICC Line Insertion 06/30/16 00:00 IMPRESSION: SUCCESSFUL PLACEMENT OF A 5 FR DUAL LUMEN 41 CM PICC IN THE right basilic VEIN. Abdomen/Pelvis CT 07/04/16 00:00 IMPRESSION: INTERVAL POSTOPERATIVE CHANGE RELATED TO PARTIAL COLECTOMY WITH DIVERTING OSTOMY. NO GROSS COMPLICATION OR ACUTE ABNORMALITY IDENTIFIED. Chest X-Ray 07/05/16 00:00 IMPRESSION: NO ACUTE RADIOGRAPHIC FINDING IN THE CHEST. Assessment & Plan - Diagnosis (1) Urinary tract infection Qualifiers: Urinary tract infection type: acute cystitis Hematuria presence: without hematuria Qualified Code(s): N30.00 - Acute cystitis without hematuria Is this a current diagnosis for this admission?: Yes (2) Generalized weakness Is this a current diagnosis for this admission?: Yes (3) Ileostomy in place Is this a current diagnosis for this admission?: Yes (4) Type 2 diabetes mellitus with complication Qualifiers: Diabetes mellitus senior care insulin use: with senior care use Qualified Code(s): E11.8 - Type 2 diabetes mellitus with unspecified complications Is this a current diagnosis for this admission?: Yes (5) Systemic inflammatory response syndrome (SIRS) Is this a current diagnosis for this admission?: Yes (6) COPD with acute exacerbation Is this a current diagnosis for this admission?: Yes
[2016-07-11] MEDS: METHYLPREDNISOLONE INJ 125 MG/2 ML SDV IV SCH ×2 (05:29→13:32)
[2016-07-11] MEDS: INSULIN LISPRO 100 UNIT/ML 3 ML VIAL SUBCUT PRN ×4 (07:39→22:08)
[2016-07-11] MEDS: ENOXAPARIN SODIUM INJ 40 MG/0.4 ML DISP.SYRIN SUBCUT SCH (07:39)
[2016-07-11] MEDS: NORMAL SALINE 10 ML SDV (SCHEDULED) IV SCH ×2 (10:45→21:24)
--- NOTE | 2016-07-11 17:12 | PDOC PROGRESS REPORT ---
Subjective Progress Note for:: 07/11/16 Subjective:: She was seen by the bedside she is improving on Solu-Medrol and Physical Exam Vital Signs: Temp Pulse Resp BP Pulse Ox 97.2 F 70 22 H 152/91 H 98 07/11/16 12:39 07/11/16 14:00 07/11/16 12:39 07/11/16 12:39 07/11/16 12:39 Intake & Output 07/10/16 07/11/16 07/12/16 06:59 06:59 06:59 Intake Total 3400 3940 Output Total 2250 1630 Balance 1150 2310 Weight 100.8 kg 98.8 kg General appearance: PRESENT: no acute distress, well-developed, well-nourished Head exam: PRESENT: atraumatic, normocephalic Eye exam: PRESENT: conjunctiva pink, EOMI, PERRLA. ABSENT: scleral icterus Ear exam: PRESENT: normal external ear exam Mouth exam: PRESENT: moist, tongue midline Neck exam: PRESENT: full ROM. ABSENT: carotid bruit, JVD, lymphadenopathy, thyromegaly Respiratory exam: PRESENT: wheezes Cardiovascular exam: PRESENT: RRR, +S1, +S2. ABSENT: diastolic murmur, rubs, systolic murmur Pulses: PRESENT: normal dorsalis pedis pul, +2 pedal pulses bilateral Vascular exam: PRESENT: normal capillary refill GI/Abdominal exam: PRESENT: normal bowel sounds, soft. ABSENT: distended, guarding, mass, organolmegaly, rebound, tenderness Rectal exam: PRESENT: deferred Neurological exam: PRESENT: alert, awake, oriented to person, oriented to place , oriented to time, oriented to situation, CN II-XII grossly intact. ABSENT: motor sensory deficit Psychiatric exam: PRESENT: appropriate affect, normal mood. ABSENT: homicidal ideation, suicidal ideation Skin exam: PRESENT: dry, intact, warm. ABSENT: cyanosis, rash Results Laboratory Results: 07/06/16 05:45 07/08/16 05:45 06/29/16 06/29/16 06/29/16 00:55 00:55 07:10 Creatine Kinase 61 43 CK-MB (CK-2) 1.53 Troponin I < 0.012 06/29/16 07:10 Creatine Kinase CK-MB (CK-2) 0.95 Troponin I < 0.012 Impressions: Guidance Fluoroscopy 06/30/16 00:00 IMPRESSION: SUCCESSFUL PLACEMENT OF A 5 FR DUAL LUMEN 41 CM PICC IN THE right basilic VEIN. Interventional Vascular Procedure 06/30/16 00:00 IMPRESSION: SUCCESSFUL PLACEMENT OF A 5 FR DUAL LUMEN 41 CM PICC IN THE right basilic VEIN. PICC Line Insertion 06/30/16 00:00 IMPRESSION: SUCCESSFUL PLACEMENT OF A 5 FR DUAL LUMEN 41 CM PICC IN THE right basilic VEIN. Abdomen/Pelvis CT 07/04/16 00:00 IMPRESSION: INTERVAL POSTOPERATIVE CHANGE RELATED TO PARTIAL COLECTOMY WITH DIVERTING OSTOMY. NO GROSS COMPLICATION OR ACUTE ABNORMALITY IDENTIFIED. Chest X-Ray 07/05/16 00:00 IMPRESSION: NO ACUTE RADIOGRAPHIC FINDING IN THE CHEST. 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
[2016-07-11] MEDS: METHYLPREDNISOLONE INJ 40 MG/1 ML SDV IV SCH (21:24)
[2016-07-11] MEDS: ACETAMINOPHEN 325 MG TABLET PO PRN (23:31)
[2016-07-12] MEDS: METHYLPREDNISOLONE INJ 40 MG/1 ML SDV IV SCH ×2 (05:41→14:36)
[2016-07-12] MEDS: ENOXAPARIN SODIUM INJ 40 MG/0.4 ML DISP.SYRIN SUBCUT SCH (07:40)
[2016-07-12] MEDS: INSULIN LISPRO 100 UNIT/ML 3 ML VIAL SUBCUT PRN ×3 (07:40→17:32)
[2016-07-12] MEDS: NORMAL SALINE 10 ML SDV (SCHEDULED) IV SCH ×2 (10:16→22:18)
--- NOTE | 2016-07-12 18:20 | PDOC PROGRESS REPORT ---
Subjective Progress Note for:: 07/12/16 Subjective:: Patient seen by the bedside, no new complaints, will DC IV Solu-Medrol Physical Exam Vital Signs: Temp Pulse Resp BP Pulse Ox 97.9 F 78 18 151/72 H 100 07/12/16 15:06 07/12/16 15:06 07/12/16 15:06 07/12/16 15:06 07/12/16 15:06 Intake & Output 07/11/16 07/12/16 07/13/16 06:59 06:59 06:59 Intake Total 3940 3540 1500 Output Total 1630 6350 2700 Balance 2310 -8680 -1200 Weight 98.8 kg 98.1 kg General appearance: PRESENT: no acute distress, well-developed, well-nourished Head exam: PRESENT: atraumatic, normocephalic Eye exam: PRESENT: conjunctiva pink, EOMI, PERRLA Ear exam: PRESENT: normal external ear exam Mouth exam: PRESENT: moist, tongue midline Neck exam: PRESENT: full ROM Respiratory exam: PRESENT: wheezes Cardiovascular exam: PRESENT: RRR, +S1, +S2 Pulses: PRESENT: normal dorsalis pedis pul, +2 pedal pulses bilateral Vascular exam: PRESENT: normal capillary refill GI/Abdominal exam: PRESENT: normal bowel sounds, soft. ABSENT: distended, guarding, mass, organolmegaly, rebound, tenderness Rectal exam: PRESENT: deferred Neurological exam: PRESENT: alert, awake, oriented to person, oriented to place , oriented to time, oriented to situation, CN II-XII grossly intact. ABSENT: motor sensory deficit Psychiatric exam: PRESENT: appropriate affect, normal mood. ABSENT: homicidal ideation, suicidal ideation Skin exam: PRESENT: dry, intact, warm. ABSENT: cyanosis, rash Results Laboratory Results: 07/06/16 05:45 07/08/16 05:45 06/29/16 06/29/16 06/29/16 00:55 00:55 07:10 Creatine Kinase 61 43 CK-MB (CK-2) 1.53 Troponin I < 0.012 06/29/16 07:10 Creatine Kinase CK-MB (CK-2) 0.95 Troponin I < 0.012 Impressions: Guidance Fluoroscopy 06/30/16 00:00 IMPRESSION: SUCCESSFUL PLACEMENT OF A 5 FR DUAL LUMEN 41 CM PICC IN THE right basilic VEIN. Interventional Vascular Procedure 06/30/16 00:00 IMPRESSION: SUCCESSFUL PLACEMENT OF A 5 FR DUAL LUMEN 41 CM PICC IN THE right basilic VEIN. PICC Line Insertion 06/30/16 00:00 IMPRESSION: SUCCESSFUL PLACEMENT OF A 5 FR DUAL LUMEN 41 CM PICC IN THE right basilic VEIN. Abdomen/Pelvis CT 07/04/16 00:00 IMPRESSION: INTERVAL POSTOPERATIVE CHANGE RELATED TO PARTIAL COLECTOMY WITH DIVERTING OSTOMY. NO GROSS COMPLICATION OR ACUTE ABNORMALITY IDENTIFIED. Chest X-Ray 07/05/16 00:00 IMPRESSION: NO ACUTE RADIOGRAPHIC FINDING IN THE CHEST. Assessment & Plan - Diagnosis (1) Urinary tract infection Qualifiers: Urinary tract infection type: acute cystitis Hematuria presence: without hematuria Qualified Code(s): N30.00 - Acute cystitis without hematuria Is this a current diagnosis for this admission?: Yes (2) Generalized weakness Is this a current diagnosis for this admission?: Yes (3) Ileostomy in place Is this a current diagnosis for this admission?: Yes (4) Type 2 diabetes mellitus with complication Qualifiers: Diabetes mellitus detention insulin use: with detention use Qualified Code(s): E11.8 - Type 2 diabetes mellitus with unspecified complications Is this a current diagnosis for this admission?: Yes (5) Systemic inflammatory response syndrome (SIRS) Is this a current diagnosis for this admission?: Yes (6) COPD with acute exacerbation Is this a current diagnosis for this admission?: Yes - Plan Summary Plan Summary: Discontinue IV Solu-Medrol, start Symbicort and Spiriva
[2016-07-12] MEDS ORDERED: BUDESONIDE/FORMOTEROL 160-4.5 MCG 60 PUFF/6 GM MDI IH ONE ×2 (18:45→18:52)
[2016-07-12] MEDS ORDERED: TIOTROPIUM BROMIDE DPI 5 CAP/KIT (18 MCG/CAP) IH ONE ×2 (18:45→18:53)
[2016-07-12 18:55] LABS: ABSOLUTE LYMPHOCYTES (AUTO) 0.6 10^3/uL (0.5-4.7); ABSOLUTE MONOCYTES (AUTO) 0.3 10^3/uL (0.1-1.4); ABSOLUTE NEUT (AUTO) 3.9 10^3/uL (1.7-8.2); BASOPHILS % (AUTO) 0.5 % (0-2); HEMATOCRIT 36.6 % (36.0-47.0); HEMOGLOBIN 12.4 g/dL (12.0-15.5); HGB HCT DIFFERENCE 0.6; LYMPHOCYTES % (AUTO) 13.6 % (13-45); MEAN CORPUSCULAR HEMOGLOBIN 32.5 pg (27.0-33.4); MEAN CORPUSCULAR HGB CONC 33.8 g/dL (32.0-36.0); MEAN CORPUSCULAR VOLUME 96 fl (80-97); MONOCYTES % (AUTO) 5.3 % (3-13); RED CELL DISTRIBUTION WIDTH 13.9 % (11.5-14.0); SEGMENTED NEUTROPHILS % (AUTO) 80.6 % (42-78); WHITE BLOOD COUNT 4.8 10^3/uL (4.0-10.5)
[2016-07-12 19:17] LABS: ALANINE AMINOTRANSFERASE 82 U/L (9-52); ALBUMIN 2.9 g/dL (3.5-5.0); ALKALINE PHOSPHATASE 75 U/L (38-126); ANION GAP 12 (5-19); ASPARTATE AMINO TRANSFERASE 82 U/L (14-36); BILIRUBIN,DIRECT 0.3 mg/dL (0.0-0.4); BLOOD UREA NITROGEN 15 mg/dL (7-20); CALCIUM 8.6 mg/dL (8.4-10.2); CARBON DIOXIDE 28 mmol/L (22-30); CHLORIDE 97 mmol/L (98-107); CREATININE RESULT 0.72 mg/dL (0.52-1.25); SODIUM 137.1 mmol/L (137-145); TOTAL PROTEIN 6.5 g/dL (6.3-8.2)
[2016-07-12 19:25] LABS: GLUCOSE 412 mg/dL (75-110); POTASSIUM 2.9 mmol/L (3.6-5.0)
[2016-07-12] MEDS: ACETAMINOPHEN 325 MG TABLET PO PRN (19:26)
[2016-07-12] MEDS ORDERED: LOSARTAN POTASSIUM 50 MG TABLET PO ONE (20:45)
[2016-07-12] MEDS ORDERED: LANSOPRAZOLE 30 MG TAB.RAP.DR PO ONE (20:45)
[2016-07-12] MEDS ORDERED: METOPROLOL SUCCINATE 50 MG TAB.SR.24H PO ONE (20:45)
[2016-07-12] MEDS ORDERED: PIOGLITAZONE HCL 30 MG TABLET PO ONE (20:45)
[2016-07-12] MEDS ORDERED: SITAGLIPTIN PHOSPHATE 50 MG TABLET PO ONE (20:45)
[2016-07-12] MEDS ORDERED: INSULIN DETEMIR 100 UNIT/ML 3 ML PEN SUBCUT ONE ×2 (20:45→21:13)
[2016-07-12] MEDS ORDERED: ASPIRIN 81 MG TABLET, CHEWABLE PO ONE (20:45)
[2016-07-12] MEDS ORDERED: DULOXETINE HCL 30 MG CAPSULE.DR PO SCH (22:00)
[2016-07-12] MEDS: ATORVASTATIN CALCIUM 20 MG TABLET PO SCH (22:17)
[2016-07-12] MEDS: POTASSIUM CHLORIDE 10 MEQ TABLET.SA PO SCH (22:18)
[2016-07-12] MEDS: NORMAL SALINE 1000 ML 1,000 ML IV PRN (22:18)
[2016-07-12] MEDS: GABAPENTIN 400 MG CAPSULE PO SCH (22:18)
[2016-07-13] MEDS: POTASSIUM CHLORIDE 10 MEQ TABLET.SA PO SCH ×2 (01:11→05:47)
[2016-07-13] MEDS: GABAPENTIN 400 MG CAPSULE PO SCH ×3 (05:47→21:58)
[2016-07-13 06:12] LABS: ABSOLUTE LYMPHOCYTES (AUTO) 2.5 10^3/uL (0.5-4.7); ABSOLUTE MONOCYTES (AUTO) 0.8 10^3/uL (0.1-1.4); BASOPHILS % (AUTO) 0.1 % (0-2); EOSINOPHILS % (AUTO) 0.6 % (0-6); HEMATOCRIT 36.6 % (36.0-47.0); HEMOGLOBIN 12.8 g/dL (12.0-15.5); HGB HCT DIFFERENCE 1.8; MEAN CORPUSCULAR HEMOGLOBIN 33.1 pg (27.0-33.4); MEAN CORPUSCULAR HGB CONC 34.9 g/dL (32.0-36.0); MEAN CORPUSCULAR VOLUME 95 fl (80-97); MONOCYTES % (AUTO) 10.7 % (3-13); RED BLOOD COUNT 3.87 10^6/uL (3.72-5.28); RED CELL DISTRIBUTION WIDTH 14.1 % (11.5-14.0); SEGMENTED NEUTROPHILS % (AUTO) 54.6 % (42-78); WHITE BLOOD COUNT 7.3 10^3/uL (4.0-10.5)
[2016-07-13 06:35] LABS: ALANINE AMINOTRANSFERASE 84 U/L (9-52); ALBUMIN 2.8 g/dL (3.5-5.0); ALKALINE PHOSPHATASE 65 U/L (38-126); ANION GAP 10 (5-19); ASPARTATE AMINO TRANSFERASE 68 U/L (14-36); BILIRUBIN,DIRECT 0.2 mg/dL (0.0-0.4); BILIRUBIN,TOTAL 0.9 mg/dL (0.2-1.3); BLOOD UREA NITROGEN 15 mg/dL (7-20); CALCIUM 9.1 mg/dL (8.4-10.2); CARBON DIOXIDE 27 mmol/L (22-30); CHLORIDE 105 mmol/L (98-107); CREATININE RESULT 0.69 mg/dL (0.52-1.25); GLUCOSE 240 mg/dL (75-110); POTASSIUM 3.6 mmol/L (3.6-5.0); SODIUM 141.9 mmol/L (137-145); TOTAL PROTEIN 6.2 g/dL (6.3-8.2)
[2016-07-13] MEDS: PIOGLITAZONE HCL 30 MG TABLET PO SCH (08:32)
[2016-07-13] MEDS: ENOXAPARIN SODIUM INJ 40 MG/0.4 ML DISP.SYRIN SUBCUT SCH (08:32)
[2016-07-13] MEDS ORDERED: (PENDING PHARMACY ID) (Canagliflozin [Invokana] 300 MG) PO SCH (10:00)
[2016-07-13] MEDS: INSULIN DETEMIR 100 UNIT/ML 3 ML PEN SUBCUT SCH ×2 (10:16→17:55)
[2016-07-13] MEDS: BUDESONIDE/FORMOTEROL 160-4.5 MCG 60 PUFF/6 GM MDI IH SCH ×2 (10:17→21:58)
[2016-07-13] MEDS: SITAGLIPTIN PHOSPHATE 50 MG TABLET PO SCH (10:17)
[2016-07-13] MEDS: METOPROLOL SUCCINATE 50 MG TAB.SR.24H PO SCH (10:17)
[2016-07-13] MEDS: LANSOPRAZOLE 30 MG TAB.RAP.DR PO SCH (10:17)
[2016-07-13] MEDS: LOSARTAN POTASSIUM 50 MG TABLET PO SCH (10:17)
[2016-07-13] MEDS: ASPIRIN 81 MG TABLET, CHEWABLE PO SCH (10:17)
[2016-07-13] MEDS: TIOTROPIUM BROMIDE DPI 5 CAP/KIT (18 MCG/CAP) IH SCH (10:17)
[2016-07-13] MEDS: NORMAL SALINE 10 ML SDV (SCHEDULED) IV SCH ×2 (10:18→21:58)
[2016-07-13] MEDS: INSULIN LISPRO 100 UNIT/ML 3 ML VIAL SUBCUT PRN ×2 (12:14→17:54)
--- NOTE | 2016-07-13 19:38 | PDOC TRANSFER SUMMARY ---
General - Admit/Disc Date/PCP Admission Date/Primary Care Provider: 06/28/16 20:45 Discharge Date: 07/14/16 - Discharge Diagnosis (1) Urinary tract infection Is this a current diagnosis for this admission?: Yes (2) Generalized weakness Is this a current diagnosis for this admission?: Yes (3) Ileostomy in place Is this a current diagnosis for this admission?: Yes (4) Type 2 diabetes mellitus with complication Is this a current diagnosis for this admission?: Yes (5) Systemic inflammatory response syndrome (SIRS) Is this a current diagnosis for this admission?: Yes (6) COPD with acute exacerbation Is this a current diagnosis for this admission?: Yes (7) MRSA (methicillin resistant staph aureus) culture positive Is this a current diagnosis for this admission?: Yes - Additional Information Discharge Diet: Diabetic Discharge Activity: Activity As Tolerated Home Medications: Acetaminophen with Codeine [Acetaminophen-Cod #3 Tablet] 1 tab PO Q6HP PRN 06/29 Albuterol Sulfate [Proair HFA Inhalation Aerosol 8.5 gm MDI] 2 puff IH Q4HP PRN 06/29/16 Calcium Carb/Magnesium Hydrox [Rolaids Chewable Tablet] 2 tab PO 6XD PRN Canagliflozin [Invokana] 300 mg PO DAILY 06/29/16 Cyanocobalamin (Vitamin B-12) [Vitamin B-12 Inj 1000 Mcg/1 ml Vial] 1,000 mcg SQ WE@1000 06/29/16 Duloxetine HCl [Cymbalta] 60 mg PO Q12 06/29/16 Fluticasone/Salmeterol [Advair 250-50 Diskus 14 Dose/Diskus] 1 puff IH BID 06/29 Gabapentin [Neurontin] 1,200 mg PO Q8 06/29/16 Insulin Aspart [Novolog Insulin (Aspart) 100 unit/mL] 10 unit SQ MEALS 06/29/16 Insulin Detemir [Levemir Insulin 100 units/mL] 55 unit SQ BID 06/29/16 Linagliptin [Tradjenta] 5 mg PO DAILY 06/29/16 Losartan Potassium [Cozaar 100 mg Tablet] 100 mg PO DAILY 06/29/16 Metoprolol Succinate [Toprol XL 100 mg Tablet] 100 mg PO DAILY 06/29/16 Omeprazole 40 mg PO DAILY 06/29/16 Pitavastatin Calcium [Livalo] 4 mg PO DAILY 06/29/16 Tiotropium [place] [Spiriva Handihaler 5 Cap/Kit (18 Mcg/Cap)] 1 puff IH DAILY 06/29/16 Acetaminophen [Tylenol 325 mg Tablet] 650 mg PO Q6HP PRN #0 tablet 07/13/16 Aspirin [Aspirin 81 mg Chewable Tablet] 81 mg PO DAILY #0 tab.chew 07/13/16 Losartan Potassium [Cozaar 50 mg Tablet] 100 mg PO DAILY #0 tablet 07/13/16 Metformin HCl [Glumetza] 500 mg PO DAILY #0 [id number] 07/13/16 Tiotropium [place] [Spiriva Handihaler 5 Cap/Kit (18 Mcg/Cap)] 1 cap IH DAILY # 0 kit 07/13/16 History of Present Illness Admission Date/PCP: 06/28/16 20:45 History of Present Illness: Patient 71-year-old female she was admitted on June 28, 2016 when she presented to the emergency room, she apparently fell and was on the ground for approximately 30 hours,in the emergency room she was evaluated, she was found to be septic, the white cell count was 21.9 thousand with a left shift and the urinalysis was grossly abnormal.that suggest UTI Hospital Course Hospital Course: She was admitted and treated empirically for UTI with IV antibiotic, hospital course was complicated with acute exacerbation of chronic obstructive lung disease, with wheezing ,she was treated with IV Solu-Medrol, the chest x-ray did not show pneumonia, she also had MRSA in the sputum though the chest x-ray was negative for pneumonia. She was treated with IV Zyvox for the positive MRSA in the sputum because she had acute COPD exacerbation though there was no x-ray evidence of pneumonia it was felt that his probably reasonable to treat her with IV Zyvox for MRSA. The plan is to transfer her to skilled nursing. The last time she was admitted in this hospital on 05/04/2016 she had a perforated colon and she underwent extended right hemicolectomy with end ileostomy bag in place the pathology of the colon was pseudomembranous colitis this is supposed to be a temporary ileostomy bag she is supposed to follow-up with surgery for revision Physical Exam Vital Signs: Temp Pulse Resp BP Pulse Ox 97.9 F 62 18 123/78 100 07/13/16 16:39 07/13/16 16:39 07/13/16 16:39 07/13/16 16:39 07/13/16 16:39 Intake & Output 07/12/16 07/13/16 07/14/16 06:59 06:59 06:59 Intake Total 354 4742 1454 Output Total 6350 5600 Balance -2810 -858 1454 Weight 98.1 kg 96.4 kg General appearance: PRESENT: no acute distress, well-developed, well-nourished Head exam: PRESENT: atraumatic, normocephalic Eye exam: PRESENT: conjunctiva pink, EOMI, PERRLA. ABSENT: scleral icterus Ear exam: PRESENT: normal external ear exam Mouth exam: PRESENT: moist, tongue midline Neck exam: ABSENT: carotid bruit, JVD, lymphadenopathy, thyromegaly Respiratory exam: PRESENT: rhonchi Cardiovascular exam: PRESENT: RRR. ABSENT: diastolic murmur, rubs, systolic murmur Pulses: PRESENT: normal dorsalis pedis pul Vascular exam: PRESENT: normal capillary refill GI/Abdominal exam: PRESENT: normal bowel sounds, soft. ABSENT: distended, guarding, mass, organolmegaly, rebound, tenderness Rectal exam: PRESENT: deferred Extremities exam: PRESENT: full ROM. ABSENT: calf tenderness, clubbing, pedal edema Neurological exam: PRESENT: alert, awake, oriented to person, oriented to place , oriented to time, oriented to situation, CN II-XII grossly intact. ABSENT: motor sensory deficit Psychiatric exam: PRESENT: appropriate affect, normal mood. ABSENT: homicidal ideation, suicidal ideation Skin exam: PRESENT: dry, intact, warm. ABSENT: cyanosis, rash Results Laboratory Results: 07/13/16 05:40 07/13/16 05:40 07/13/16 07/13/16 05:40 05:40 WBC 7.3 RBC 3.87 Hgb 12.8 Hct 36.6 MCV 95 MCH 33.1 MCHC 34.9 RDW 14.1 H Plt Count 191 Seg Neutrophils % 54.6 Lymphocytes % 34.0 Monocytes % 10.7 Eosinophils % 0.6 Basophils % 0.1 Absolute Neutrophils 4.0 Absolute Lymphocytes 2.5 Absolute Monocytes 0.8 Absolute Eosinophils 0.0 Absolute Basophils 0.0 Sodium 141.9 Potassium 3.6 Chloride 105 Carbon Dioxide 27 Anion Gap 10 BUN 15 Creatinine 0.69 Est GFR ( Amer) > 60 Est GFR (Non-Af Amer) > 60 Glucose 240 H Calcium 9.1 Total Bilirubin 0.9 AST 68 H ALT 84 H Alkaline Phosphatase 65 Total Protein 6.2 L Albumin 2.8 L 06/29/16 06/29/16 06/29/16 00:55 00:55 07:10 Creatine Kinase 61 43 CK-MB (CK-2) 1.53 Troponin I < 0.012 06/29/16 07:10 Creatine Kinase CK-MB (CK-2) 0.95 Troponin I < 0.012 Impressions: Guidance Fluoroscopy 06/30/16 00:00 IMPRESSION: SUCCESSFUL PLACEMENT OF A 5 FR DUAL LUMEN 41 CM PICC IN THE right basilic VEIN. Interventional Vascular Procedure 06/30/16 00:00 IMPRESSION: SUCCESSFUL PLACEMENT OF A 5 FR DUAL LUMEN 41 CM PICC IN THE right basilic VEIN. PICC Line Insertion 06/30/16 00:00 IMPRESSION: SUCCESSFUL PLACEMENT OF A 5 FR DUAL LUMEN 41 CM PICC IN THE right basilic VEIN. Abdomen/Pelvis CT 07/04/16 00:00 IMPRESSION: INTERVAL POSTOPERATIVE CHANGE RELATED TO PARTIAL COLECTOMY WITH DIVERTING OSTOMY. NO GROSS COMPLICATION OR ACUTE ABNORMALITY IDENTIFIED. Chest X-Ray 07/05/16 00:00 IMPRESSION: NO ACUTE RADIOGRAPHIC FINDING IN THE CHEST.
[2016-07-13] MEDS: ATORVASTATIN CALCIUM 20 MG TABLET PO SCH (21:58)
[2016-07-14] MEDS: GABAPENTIN 400 MG CAPSULE PO SCH (06:18)
[2016-07-14] MEDS: ENOXAPARIN SODIUM INJ 40 MG/0.4 ML DISP.SYRIN SUBCUT SCH (08:37)
[2016-07-14] MEDS: PIOGLITAZONE HCL 30 MG TABLET PO SCH (08:37)
[2016-07-14] MEDS: LANSOPRAZOLE 30 MG TAB.RAP.DR PO SCH (10:55)
[2016-07-14] MEDS: LOSARTAN POTASSIUM 50 MG TABLET PO SCH (10:55)
[2016-07-14] MEDS: METOPROLOL SUCCINATE 50 MG TAB.SR.24H PO SCH (10:55)
[2016-07-14] MEDS: SITAGLIPTIN PHOSPHATE 50 MG TABLET PO SCH (10:56)
[2016-07-14] MEDS: NORMAL SALINE 10 ML SDV (SCHEDULED) IV SCH (10:56)
[2016-07-14] MEDS: ASPIRIN 81 MG TABLET, CHEWABLE PO SCH (10:56)
[2016-07-14] MEDS: TIOTROPIUM BROMIDE DPI 5 CAP/KIT (18 MCG/CAP) IH SCH (10:57)
[2016-07-14] MEDS: BUDESONIDE/FORMOTEROL 160-4.5 MCG 60 PUFF/6 GM MDI IH SCH (10:57)
[2016-07-14] MEDS: INSULIN DETEMIR 100 UNIT/ML 3 ML PEN SUBCUT SCH (10:58)
[2016-07-14 12:27] VITALS: BP 136/89
== END 2016-07-14 14:08 | DRG 872 ==
LOC: ER 16:40 → EH 19:28 → UNDOADMIN 19:28 → EH 20:45 → 5 21:18
PROVIDERS: ADMIT Internal Medicine; ATTEND Internal Medicine
PROC: 3E0F73Z Introduction of Anti-inflammatory into Respiratory Tract, Via Natural or Artificial Opening (ICD-10-PCS; 2016-06-29)
PROC: 02HV33Z Insertion of Infusion Device into Superior Vena Cava, Percutaneous Approach (ICD-10-PCS; principal; 2016-06-30)
PROC: B518ZZA Fluoroscopy of Superior Vena Cava, Guidance (ICD-10-PCS; 2016-06-30)
PROC: B548ZZA Ultrasonography of Superior Vena Cava, Guidance (ICD-10-PCS; 2016-06-30)
DX: A41.9 Sepsis, unspecified organism (principal); N30.00 Acute cystitis without hematuria; J44.1 Chronic obstructive pulmonary disease with (acute) exacerbation; E11.8 Type 2 diabetes mellitus with unspecified complications; B95.62 Methicillin resistant Staphylococcus aureus infection as the cause of diseases classified elsewhere; I11.0 Hypertensive heart disease with heart failure; I50.9 Heart failure, unspecified; I25.10 Atherosclerotic heart disease of native coronary artery without angina pectoris; E78.5 Hyperlipidemia, unspecified; M19.90 Unspecified osteoarthritis, unspecified site; F32.9 Major depressive disorder, single episode, unspecified; D64.9 Anemia, unspecified; K52.9 Noninfective gastroenteritis and colitis, unspecified; R53.1 Weakness; W19.XXXA Unspecified fall, initial encounter; Z93.2 Ileostomy status; Z86.718 Personal history of other venous thrombosis and embolism; Z79.82 Long term (current) use of aspirin; Z79.4 Long term (current) use of insulin; Z90.49 Acquired absence of other specified parts of digestive tract; Z79.899 Other long term (current) drug therapy; Z87.891 Personal history of nicotine dependence; Z91.041 Radiographic dye allergy status; Z88.6 Allergy status to analgesic agent; Z83.6 Family history of other diseases of the respiratory system; Z83.3 Family history of diabetes mellitus; Z80.0 Family history of malignant neoplasm of digestive organs
CPT/HCPCS: 36415; 36569; 71010; 71020; 74176; 76937; 77001; 80048; 80053; 80061; 80076; 81001; 82140; 82150; 82550; 82553; 82962; 83036; 83605; 83690; 83735; 83880; 84100; 84439; 84443; 84484; 85025; 85610; 85730; 87040; 87070; 87075; 87077; 87186; 87205; 96374; 99291; C1769; J0696; J1335; J1642; J1650; J1815; J2920; J2930; J3490; J7030; J7050

== ENCOUNTER 2016-08-20 22:14 | Emergency (ER) | payer MEDICARE, MEDICAID ==
[2016-08-20] MEDS ORDERED: ASPIRIN 81 MG TABLET, CHEWABLE PO ONE (22:35)
[2016-08-20 22:44] LABS: ABSOLUTE BASOPHILS # (AUTO) 0.1 10^3/uL (0.0-0.2); ABSOLUTE EOSINOPHILS # (AUTO) 0.5 10^3/uL (0.0-0.6); ABSOLUTE LYMPHOCYTES (AUTO) 2.2 10^3/uL (0.5-4.7); ABSOLUTE MONOCYTES (AUTO) 0.6 10^3/uL (0.1-1.4); ABSOLUTE NEUT (AUTO) 5.4 10^3/uL (1.7-8.2); BASOPHILS % (AUTO) 1.6 % (0-2); EOSINOPHILS % (AUTO) 6.1 % (0-6); HEMATOCRIT 42.7 % (36.0-47.0); HEMOGLOBIN 14.1 g/dL (12.0-15.5); HGB HCT DIFFERENCE -0.4; LYMPHOCYTES % (AUTO) 24.5 % (13-45); MEAN CORPUSCULAR HEMOGLOBIN 31.9 pg (27.0-33.4); MEAN CORPUSCULAR HGB CONC 33.1 g/dL (32.0-36.0); MEAN CORPUSCULAR VOLUME 97 fl (80-97); MONOCYTES % (AUTO) 7.1 % (3-13); RED BLOOD COUNT 4.42 10^6/uL (3.72-5.28); RED CELL DISTRIBUTION WIDTH 15.3 % (11.5-14.0); SEGMENTED NEUTROPHILS % (AUTO) 60.7 % (42-78); WHITE BLOOD COUNT 8.9 10^3/uL (4.0-10.5)
[2016-08-20 23:04] LABS: ALANINE AMINOTRANSFERASE 28 U/L (9-52); ALBUMIN 3.4 g/dL (3.5-5.0); ALKALINE PHOSPHATASE 89 U/L (38-126); ANION GAP 11 (5-19); ASPARTATE AMINO TRANSFERASE 27 U/L (14-36); BILIRUBIN,DIRECT 0.3 mg/dL (0.0-0.4); BILIRUBIN,TOTAL 0.9 mg/dL (0.2-1.3); BLOOD UREA NITROGEN 9 mg/dL (7-20); CALCIUM 9.5 mg/dL (8.4-10.2); CARBON DIOXIDE 27 mmol/L (22-30); CHLORIDE 103 mmol/L (98-107); CREATINE KINASE 20 U/L (30-135); CREATININE RESULT 0.87 mg/dL (0.52-1.25); GLUCOSE 196 mg/dL (75-110); POTASSIUM 4.8 mmol/L (3.6-5.0); SODIUM 141.2 mmol/L (137-145); TOTAL PROTEIN 7.4 g/dL (6.3-8.2)
[2016-08-20 23:15] LABS: CREATINE KINASE MB 0.77 ng/mL (<4.55)
[2016-08-20 23:16] LABS: TROPONIN I < 0.012 ng/mL
--- NOTE | 2016-08-20 23:18 | RADIOLOGY REPORT (SQ) ---
EXAM DESCRIPTION: CHEST SINGLE VIEW COMPLETED DATE/TIME: 08/20/2016 11:10 pm REASON FOR STUDY: CP COMPARISON: 07/14/2016. EXAM PARAMETERS: NUMBER OF VIEWS: One view. TECHNIQUE: Single frontal radiographic view of the chest acquired. RADIATION DOSE: NA LIMITATIONS: None. FINDINGS: LUNGS AND PLEURA: No opacities, masses or pneumothorax. No pleural effusion. MEDIASTINUM AND HILAR STRUCTURES: No masses. Contour normal. HEART AND VASCULAR STRUCTURES: Heart normal in size. Normal vasculature. BONES: No acute findings. HARDWARE: Hardware in the left humerus. OTHER: No other significant finding. IMPRESSION: NO ACUTE RADIOGRAPHIC FINDING IN THE CHEST. TECHNICAL DOCUMENTATION: JOB ID: [id number]
[2016-08-20] MEDS ORDERED: METHYLPREDNISOLONE INJ 125 MG/2 ML SDV IV ONE (23:31)
[2016-08-20] MEDS ORDERED: IPRATROPIUM/ALBUTEROL 0.5-2.5 MG/3 ML AMPUL NEB ONE (23:31)
[2016-08-20] MEDS ORDERED: ALBUTEROL SULFATE 0.083% NEB 2.5 MG/3 ML AMPUL NEB SCH (23:46)
--- NOTE | 2016-08-21 01:26 | ER Document Report ---
ED Respiratory Problem - General Chief Complaint: Chest Pain Stated Complaint: CHEST PAIN Time Seen by Provider: 08/20/16 22:34 Notes: 71-year-old female presented to emergency department complaining gradual onset chest pressure about 8 PM this evening. Patient states that she is reading a book with gradual onset of chest pressure with associated shortness of breath and dyspnea on exertion. She denies any sharp stabbing substernal pain with radiation to her arm. Admits to left neck pain. Denies any heartburn, paretic pain, nausea or vomiting. Past medical history significant for COPD, ileostomy secondary to bowel perforation, insulin-dependent diabetes, hypertension, hyperlipidemia, history of TIA, history of diverticulitis, history of right renal mass, history of DVT. Past surgical history significant for cataracts, left shoulder replacement, total abdominal hysterectomy. Social history significant for history of 3 pack per day smoker for the past 50 years. Stress test last was 3 years ago. TRAVEL OUTSIDE OF THE [place] IN LAST 30 DAYS: No - Related Data Allergies/Adverse Reactions: tapentadol [From Nucynta] Allergy (Verified 05/04/16 18:49) Delirium Iodinated Contrast- Oral and IV Dye [Iodinated Contrast Media - Oral and] Adverse Reaction (Verified 05/21/16 13:07) Generalized rash Past Medical History - Social History Smoking Status: Former Smoker Family History: COPD, DM, Malignancy - Brother with throat cancer, Other - Father with tuberculosis - Past Medical History Cardiac Medical History: Reports: Hx Congestive Heart Failure, Hx Coronary Artery Disease, Hx DVT, Hx Hypercholesterolemia, Hx Hypertension - meds since 2012 Denies: Hx Heart Attack Pulmonary Medical History: Reports: Hx Bronchitis, Hx COPD, Hx Pneumonia Denies: Hx Asthma, Hx Tuberculosis Neurological Medical History: Denies: Hx Cerebrovascular Accident, Hx Seizures Endocrine Medical History: Reports: Hx Diabetes Mellitus Type 2 Musculoskeltal Medical History: Reports Hx Arthritis Psychiatric Medical History: Reports: Hx Depression Past Surgical History: Reports: Hx Appendectomy, Hx Hysterectomy, Hx Orthopedic Surgery - left shoulder, Other - Recent history of extended right hemicolectomy with end ileostomy bag - Immunizations Immunizations up to date: Yes Hx Diphtheria, Pertussis, Tetanus Vaccination: Yes Hx Pneumococcal Vaccination: 05/27/13 Physical Exam - Vital signs Vitals: Resp BP Pulse Ox 15 117/73 98 08/20/16 23:01 08/20/16 23:01 08/20/16 23:01 - Notes Notes: PHYSICAL EXAM GENERAL: Alert, interacts well. HEAD: Normocephalic, atraumatic. EYES: Pupils equal, round, and reactive to light. Extraocular movements intact. ENT: Oral mucosa moist, tongue midline. NECK: Full range of motion. Supple. Trachea midline. LUNGS: inspiratory and expiratory wheezes noted bilaterally without rales, or rhonchi. No respiratory distress. HEART: Regular rate and rhythm. No murmurs, gallops, or rubs. ABDOMEN: Soft, nondistended, nontender. No guarding, rebound, or rigidity.. Bowel sounds present in all 4 quadrants. EXTREMITIES: Moves all 4 extremities spontaneously. No edema, radial and dorsalis pedis pulses 2/4 bilaterally. No cyanosis. NEUROLOGICAL: Alert and oriented x4. Normal speech. PSYCH: Normal affect, normal mood. SKIN: Warm, dry, normal turgor. No rashes or lesions noted. Course - Re-evaluation Re-evalutation: 08/21/16 01:43 Patient is very well in appearance, vitals within normal limits. Low clinical suspicion for ACS given clinical history, exam, EKG without ST elevations or depressions, and negative initial troponin. HEART score less than or equal to 3. PE also seems unlikely given clinical history, absence of tachycardia or dyspnea. Well's score of 0. CXR without evidence of pneumothorax or pneumonia. No widened mediastinum. Aortic dissection also seems unlikely given history, symmetric pulses, CXR, and vitals. Findings are consistent with COPD exacerbation. Patient's vitals are stable with a pulse ox of 96. Patient has complete resolution of her symptoms after medication. Denies any chest pain or neck pain. At this time will discharge with return precautions and follow-up recommendations. Verbal discharge instructions given a the bedside and opportunity for questions given. Medication warnings reviewed. Patient is in agreement with this plan and has verbalized understanding of return precautions and the need for primary care follow-up in the next 24-72 hours. - Vital Signs Vital signs: Temp Pulse Resp BP Pulse Ox 15 117/73 96 08/20/16 23:01 08/20/16 23:01 08/21/16 01:35 - Laboratory Result Diagrams: 08/20/16 22:35 08/20/16 22:35 Laboratory results interpreted by me: 08/20/16 08/20/16 22:35 22:35 RDW 15.3 H Eosinophils % 6.1 H Glucose 196 H Creatine Kinase 20 L Albumin 3.4 L - Diagnostic Test Radiology reviewed: Image reviewed, Reports reviewed - EKG Interpretation by Me EKG shows normal: Sinus rhythm Rate: Normal Rhythm: NSR When compared to previous EKG there are: No significant change Discharge - Discharge Clinical Impression: Chronic obstructive pulmonary disease with acute exacerbation Condition: Good Disposition: HOME, SELF-CARE Additional Instructions: Chronic Obstructive Lung Disease You have chronic obstructive lung disease (COPD). The symptoms come from emphysema (damage to small airways, with trapping of air in large sacks in the lung) and chronic bronchitis (repeated infection and damage to larger airways). The cause is almost always cigarette smoking, although dust exposure, asthma, and infections contribute. You should avoid fumes, dust, and smoke (especially tobacco smoke). Your condition will flare from time to time. There is no cure, but the symptoms can be treated. Bronchodilators (asthma medicine) are often helpful. Antibiotics help when infection is present. When shortness of breath is severe, we may prescribe cortisone medication. If medicine doesn't help enough, we can arrange for you to have an oxygen tank at home. Notify your doctor at once if sputum becomes thick, foul, or bloody, if you develop a fever or chest pain, or if your shortness of breath worsens. BRONCHITIS WITH BRONCHOSPASM (WHEEZING): You have bronchitis with bronchospasm (wheezing). Sometimes people develop wheezing with a chest cold. This occurs either because of an underlying tendency toward asthma or because the virus itself irritates the bronchial tubes. This irritation causes cough, shortness of breath, and wheezing. Emergency treatment of bronchospasm may include adrenaline shots or bronchodilator aerosol. You may feel lightheaded and have a rapid pulse for an hour or two. Rest and get plenty of fluids. At home, we'll treat you with a bronchodilator inhaler. Corticosteroids may be required for some patients. Until you recover, avoid chemical fumes, dusts, pollens, and exercising in very cold or dry air. If you smoke, stop now! Most cases of bronchitis get better without antibiotics. We prescribe antibiotics when we believe bacteria are damaging your airways, or if there's high risk the bronchitis will worsen into pneumonia. Increase your fluid intake. A cool mist humidifier may make your lungs more comfortable. An expectorant (cough medicine that loosens phlegm) can help. Repeated episodes of bronchitis and bronchospasm may result in lung damage -- for example, chronic bronchitis, recurrent pneumonias, or emphysema. If you develop a fever, increased wheezing, chest pain, or severe shortness of breath, you should contact the doctor immediately. INHALED BRONCHODILATORS: You have received a treatment of and/or prescription for an inhaled bronchodilator -- a medication which stimulates the airways in the lung to dilate. This improves the flow of air in asthma, bronchitis, and emphysema. These medicines have some similarity to adrenaline, and can cause similar side effects: shakiness, racing heart, and a sense of nervousness. These side effects decrease with time. Contact your doctor if these side effects are severe. Do not over-use the medicine. Too-frequent use of the inhaler may make it ineffective. Call your doctor if the inhaler is not controlling your symptoms at the prescribed doses. STEROID MEDICATION: You have been given an injection of or oral medicine of the cortisone/ steroid class. This medication is used to control inflammation or allergy. Tal t is usually only given for a short period of time, until the acute process subsides. There are usually no side effects from short-term use of cortisone-like medications. Some persons feel an increased sense of well-being and are not sleepy at bedtime. Long-term use of cortisone medications is best avoided, unless required for a severe condition. If your condition does not remit, or relapses after the course of corticosteroid medication, you should consult your physician. FOLLOW-UP CARE: If you have been referred to a physician for follow-up care, call the physician s office for an appointment as you were instructed or within the next two days. If you experience worsening or a significant change in your symptoms, notify the physician immediately or return to the Emergency Department at any time for re-evaluation. Prescriptions: Albuterol Sulfate [Proair HFA Inhalation Aerosol 8.5 gm MDI] 2 puff IH Q4H PRN # 1 mdi PRN Reason: Prednisone [Deltasone 20 mg Tablet] 3 tab PO DAILY 5 Days Referrals: TOÑA MCLEAN MD [Primary Care Provider] - Follow up in 3-5 days
[2016-08-21 02:04] VITALS: BP 121/80
--- NOTE | 2016-08-21 11:03 | EKG REPORT ---
SEVERITY:- OTHERWISE NORMAL ECG - SINUS RHYTHM BORDERLINE LEFT AXIS DEVIATION : Confirmed by: Amy Saldana MD 21-Aug-2016 11:02:11
== END 2016-08-21 02:05 | disposition home or self-care (01) ==
LOC: ER 22:14
DX: J44.1 Chronic obstructive pulmonary disease with (acute) exacerbation (principal); R07.9 Chest pain, unspecified; E11.9 Type 2 diabetes mellitus without complications; Z79.4 Long term (current) use of insulin; E78.5 Hyperlipidemia, unspecified; I50.9 Heart failure, unspecified; I11.0 Hypertensive heart disease with heart failure; Z86.718 Personal history of other venous thrombosis and embolism; Z93.2 Ileostomy status; Z86.73 Personal history of transient ischemic attack (TIA), and cerebral infarction without residual deficits; Z90.710 Acquired absence of both cervix and uterus
CPT/HCPCS: 93005; 94640; 99285; 96374; 36415; 82553; 82550; 85025; 80053; 84484; 83880; 71010; 93010; J2930; A9270 ×2; J7620

== ENCOUNTER 2016-10-29 07:50 | Day surgery (SDC) | payer MEDICARE, MEDICAID ==
[~2016-10-29 07:50] MED LIST: EPINEPHRINE INJ 1 MG/10 ML DISP.SYRIN ONE; FLUMAZENIL INJ 0.5 MG/5 ML VIAL IV ONE; GLUCAGON,HUMAN RECOMB 1 MG INJ ONE; GLYCOPYRROLATE INJ 0.4 MG/2 ML VIAL ONE; NALOXONE HCL INJ/PF 0.4 MG/1 ML SDV ONE; ONDANSETRON HCL INJ/PF 4 MG/2 ML SDV ONE
[2016-10-29] MEDS: MIDAZOLAM 2 MG/2 ML INJ ONE ×3 (08:34→09:01)
[2016-10-29] MEDS: FENTANYL CITRATE INJ/PF 100 MCG/2 ML AMPUL ONE ×2 (08:36→08:59)
--- NOTE | 2016-10-29 09:15 | PDOC DISCHARGE SUMMARY ---
Discharge Summary (SDC) - Discharge Final Diagnosis: Hx of CFrandy Montoya; s/p right colectomy Date of Surgery: 10/29/16 Discharge Date: 10/29/16 Condition: Good Treatment or Instructions: [address] [address] POST ENDOSCOPY DISCHARGE INSTRUCTIONS 1. Diet: Start clear liquids that a regular diet as tolerated. 2. Resume all preoperative medications. All oral anticoagulants and aspirins can be resumed 24 hours after procedure. 3. If a polypectomy was performed some bleeding per rectum may occur. This should stop within 3 days. If not, please contact the office. 4. If you had a colonoscopy you may experience some bloating and delayed return of normal bowel function for several days, your regular bowel movement pattern should resume within a week. 5. Please contact [facility] at to make an appointment with Dr. Mendez for 1 to 3 weeks following procedure. 6. If you have any questions or concerns regarding your care,treatment plan or follow up, please contact our office. 7. Per clinical guidelines we recommend you undergo a repeat colonoscopy in 10 years. Referrals: TOÑA MCLEAN MD [Primary Care Provider] - Discharge Diet: As Tolerated Discharge Activity: Activity As Tolerated
[2016-10-29 10:21] VITALS: BP 112/79
--- NOTE | 2016-10-29 12:17 | OPERATIVE REPORT E ---
Operative Report NAME: DARCY NAVA : 1945 AGE: 71Y DATE OF SURGERY: 10/29/2016 ROOM: PREOPERATIVE DIAGNOSIS: Status post right colectomy with ileostomy for Clostridium difficile colitis, fulminant. POSTOPERATIVE DIAGNOSES: 1. Diversion colitis and proctitis. 2. Fecal impaction, left colon. OPERATIONS: 1. Limited colonoscopy to 45 cm. 2. Incomplete fecal disimpaction, left colon. SURGEON: TORI CARRANZA M.D. ANESTHESIA: Conscious sedation. COMPLICATIONS: None. FINDINGS: See below. SUMMARY OF PROCEDURE: The patient was brought from the preop holding area to the 5th floor endoscopy suite where IV sedation was induced. She was placed in the left lateral decubitus position. Surgical plan and surgical timeout were conducted. A rectal exam was performed. The patient had mild excoriation of the perianal tissue likely from the bowel prep. There was no palpable or visible anorectal pathology. The flexible adult colonoscope was advanced to the anorectal canal, up the left colon to approximately 45 cm from the anal verge. The procedure was hampered by a significant amount of inspissated stool, which we irrigated and debrided as best we could to advance the scope to this point. Unfortunately, the patient developed a moderate amount of discomfort. I did not feel pushing the scope further proximally would be of any value, and possibly putting the patient at risk for staple line dehiscence, as this was an extended length Hiral pouch. The scope was withdrawn. No biopsies were taken. There was no evidence of polyps or tumor. The patient tolerated the procedure well and taken to the recovery area in stable condition. A followup colonoscopy will likely be provided intraoperatively at the time of the patient's ileostomy takedown if that is what is pursued. DICTATING PHYSICIAN: TORI CARRANZA M.D. [id number] PHY#: [id number] ID: [id number] JOB#: [id number] ACCT: [id number] cc:TORI CARRANZA M.D. >
== END 2016-10-29 10:27 | disposition home or self-care (01) ==
LOC: END 07:50
PROVIDERS: ATTEND Surgery
DX: K56.41 Fecal impaction (principal); K52.9 Noninfective gastroenteritis and colitis, unspecified; K62.89 Other specified diseases of anus and rectum; D64.9 Anemia, unspecified; I10 Essential (primary) hypertension; E11.9 Type 2 diabetes mellitus without complications; J44.9 Chronic obstructive pulmonary disease, unspecified; E78.00 Pure hypercholesterolemia, unspecified; Z90.49 Acquired absence of other specified parts of digestive tract; Z93.3 Colostomy status; Z87.891 Personal history of nicotine dependence; Z88.5 Allergy status to narcotic agent; Z79.82 Long term (current) use of aspirin; Z79.899 Other long term (current) drug therapy
CPT/HCPCS: 45378; 82962; J2250; J3010; J0171; J1610; J2310; J2405; J3490

== ENCOUNTER 2016-12-23 16:34 | Emergency (ER) | payer MEDICARE, MEDICAID ==
[2016-12-23 17:04] LABS: ABSOLUTE BASOPHILS # (AUTO) 0.1 10^3/uL (0.0-0.2); ABSOLUTE EOSINOPHILS # (AUTO) 0.4 10^3/uL (0.0-0.6); ABSOLUTE LYMPHOCYTES (AUTO) 2.1 10^3/uL (0.5-4.7); ABSOLUTE MONOCYTES (AUTO) 0.6 10^3/uL (0.1-1.4); ABSOLUTE NEUT (AUTO) 4.9 10^3/uL (1.7-8.2); BASOPHILS % (AUTO) 0.7 % (0-2); EOSINOPHILS % (AUTO) 5.4 % (0-6); HEMATOCRIT 45.8 % (36.0-47.0); HEMOGLOBIN 15.6 g/dL (12.0-15.5); LYMPHOCYTES % (AUTO) 25.9 % (13-45); MEAN CORPUSCULAR HEMOGLOBIN 33.5 pg (27.0-33.4); MEAN CORPUSCULAR VOLUME 99 fl (80-97); MONOCYTES % (AUTO) 7.3 % (3-13); RED BLOOD COUNT 4.65 10^6/uL (3.72-5.28); RED CELL DISTRIBUTION WIDTH 14.2 % (11.5-14.0); SEGMENTED NEUTROPHILS % (AUTO) 60.7 % (42-78); WHITE BLOOD COUNT 8.1 10^3/uL (4.0-10.5)
[2016-12-23 17:11] LABS: PROTHROMBIN TIME 12.6 SEC (11.4-15.4)
[2016-12-23 17:21] LABS: ALANINE AMINOTRANSFERASE 24 U/L (9-52); ALKALINE PHOSPHATASE 113 U/L (38-126); ANION GAP 11 (5-19); ASPARTATE AMINO TRANSFERASE 22 U/L (14-36); BILIRUBIN,DIRECT 0.3 mg/dL (0.0-0.4); BILIRUBIN,TOTAL 0.7 mg/dL (0.2-1.3); BLOOD UREA NITROGEN 19 mg/dL (7-20); CALCIUM 9.2 mg/dL (8.4-10.2); CARBON DIOXIDE 27 mmol/L (22-30); CHLORIDE 103 mmol/L (98-107); CREATININE RESULT 0.97 mg/dL (0.52-1.25); GLUCOSE 183 mg/dL (75-110); POTASSIUM 4.4 mmol/L (3.6-5.0); SODIUM 140.9 mmol/L (137-145); TOTAL PROTEIN 7.5 g/dL (6.3-8.2)
--- NOTE | 2016-12-23 18:13 | ER Document Report ---
ED General - General Chief Complaint: Flank Pain Stated Complaint: BACK PAIN Time Seen by Provider: 12/23/16 16:47 Mode of Arrival: Medic Information source: Patient, Emergency Med Personnel Notes: 71-year-old female presents with complaints of flank pain. Patient denies any fevers or chills denies any nausea or vomiting. Patient notes she had a blockage of her kidney but she then had enterocolitis and this was pushed back. Patient denies any other concerns except for the pain TRAVEL OUTSIDE OF THE [place] IN LAST 30 DAYS: No - HPI Onset: Last week Onset/Duration: Persistent Quality of pain: Achy Severity: Mild Pain Level: 1 Associated symptoms: Other Exacerbated by: Denies Relieved by: Denies Similar symptoms previously: Yes Recently seen / treated by doctor: No - Related Data Allergies/Adverse Reactions: tapentadol [From Nucynta] Allergy (Verified 10/28/16 13:32) Delirium Iodinated Contrast- Oral and IV Dye [Iodinated Contrast Media - Oral and] Adverse Reaction (Verified 10/28/16 13:32) Generalized rash Past Medical History - Social History Smoking Status: Never Smoker Cigarette use (# per day): No Chew tobacco use (# tins/day): No Smoking Education Provided: No Family History: COPD, DM, Malignancy - Brother with throat cancer, Other - Father with tuberculosis - Past Medical History Cardiac Medical History: Reports: Hx Congestive Heart Failure, Hx Coronary Artery Disease, Hx DVT, Hx Hypercholesterolemia, Hx Hypertension - meds since 2012 Denies: Hx Heart Attack Pulmonary Medical History: Reports: Hx Bronchitis, Hx COPD, Hx Pneumonia Denies: Hx Asthma, Hx Tuberculosis Neurological Medical History: Denies: Hx Cerebrovascular Accident, Hx Seizures Endocrine Medical History: Reports: Hx Diabetes Mellitus Type 2 Musculoskeltal Medical History: Reports Hx Arthritis Psychiatric Medical History: Reports: Hx Depression Past Surgical History: Reports: Hx Appendectomy, Hx Hysterectomy, Hx Orthopedic Surgery - left shoulder, Other - Recent history of extended right hemicolectomy with end ileostomy bag - Immunizations Immunizations up to date: Yes Hx Diphtheria, Pertussis, Tetanus Vaccination: Yes Hx Pneumococcal Vaccination: 05/27/13 Review of Systems - Review of Systems Notes: REVIEW OF SYSTEMS: CONSTITUTIONAL : Denies fever, chills, or sweats. Denies recent illness. EENT: Denies eye, ear, throat, or mouth pain or symptoms. Denies nasal or sinus congestion or discharge. Denies throat, tongue, or mouth swelling or difficulty swallowing. CARDIOVASCULAR: Denies chest pain. Denies palpitations or racing or irregular heart beat. Denies ankle edema. RESPIRATORY: Denies cough, cold, or chest congestion. Denies shortness of breath, difficulty breathing, or wheezing. GASTROINTESTINAL: admits to flank pain GENITOURINARY: Denies difficulty urinating, painful urination, burning, frequency, blood in urine, or discharge. FEMALE GENITOURINARY: Denies vaginal bleeding, heavy or abnormal periods, irregular periods. Denies vaginal discharge or odor. MUSCULOSKELETAL: Denies back or neck pain or stiffness. Denies joint pain or swelling. SKIN: Denies rash, lesions or sores. HEMATOLOGIC : Denies easy bruising or bleeding. LYMPHATIC: Denies swollen, enlarged glands. NEUROLOGICAL: Denies confusion or altered mental status. Denies passing out or loss of consciousness. Denies dizziness or lightheadedness. Denies headache. Denies weakness or paralysis or loss of use of either side. Denies problems with gait or speech. Denies sensory loss, numbness, or tingling. Denies seizures. PSYCHIATRIC: Denies anxiety or stress. Denies depression, suicidal ideation, or homicidal ideation. ALL OTHER SYSTEMS REVIEWED AND NEGATIVE. PHYSICAL EXAMINATION: GENERAL: Well-appearing, well-nourished and in no acute distress. HEAD: Atraumatic, normocephalic. EYES: Pupils equal round and reactive to light, extraocular movements intact, conjunctiva are normal. ENT: Nares patent, oropharynx clear without exudates. Moist mucous membranes. NECK: Normal range of motion, supple without lymphadenopathy LUNGS: Breath sounds clear to auscultation bilaterally and equal. No wheezes rales or rhonchi. HEART: Regular rate and rhythm without murmurs ABDOMEN: Soft, nontender, nondistended abdomen. No guarding, no rebound. No masses appreciated. pouch noted Female : deferred Musculoskeletal: Normal range of motion, no pitting or edema. No cyanosis. NEUROLOGICAL: Cranial nerves grossly intact. Normal speech, normal gait. Normal sensory, motor exams PSYCH: Normal mood, normal affect. SKIN: Warm, Dry, normal turgor, no rashes or lesions noted. Dictation was performed using [employer] recognition software Physical Exam - Vital signs Vitals: Temp Pulse Resp BP Pulse Ox 98.3 F 80 15 137/89 H 100 12/23/16 16:45 12/23/16 16:45 12/23/16 16:45 12/23/16 16:45 12/23/16 16:45 Course - Re-evaluation Re-evalutation: 12/23/16 18:21 Lab work notes no significant abnormality CT will be performed to determine patient's flank pain 12/23/16 19:46 Imaging noted no abnormality either, patient was given these negative results and is very happy. She must follow-up with [facility] for further evaluation and care After performing a Medical Screening Examination, I estimate there is LOW risk for ACUTE APPENDICITIS, BOWEL OBSTRUCTION, ACUTE CHOLECYSTITIS, PERFORATED DIVERTICULITIS, INCARCERATED HERNIA, PANCREATITIS, PELVIC INFLAMMATORY DISEASE, PERFORATED ULCER, ECTOPIC , or TUBO-OVARIAN ABSCESS, thus I consider the discharge disposition reasonable. Also, there is no evidence or peritonitis , sepsis, or toxicity. I have reevaluated this patient multiple times and no significant life threatening changes are noted. The patient and I have discussed the diagnosis and risks, and we agree with discharging home with close follow-up with the understanding that symptoms and presentations can change. We also discussed returning to the Emergency Department immediately if new or worsening symptoms occur. We have discussed the symptoms which are most concerning (e.g., bloody stool, fever, changing or worsening pain, vomiting) that necessitate immediate return. - Vital Signs Vital signs: Temp Pulse Resp BP Pulse Ox 98.3 F 80 15 128/74 H 96 12/23/16 16:45 12/23/16 16:45 12/23/16 18:01 12/23/16 18:01 12/23/16 18:01 - Laboratory Result Diagrams: 12/23/16 16:45 12/23/16 16:45 Laboratory results interpreted by me: 12/23/16 12/23/16 12/23/16 16:45 16:45 17:30 Hgb 15.6 H MCV 99 H MCH 33.5 H RDW 14.2 H Est GFR (Non-Af Amer) 56 L Glucose 183 H Urine Glucose (UA) >=500 H Urine Blood SMALL H - Diagnostic Test Radiology reviewed: Image reviewed, Reports reviewed Discharge - Discharge Clinical Impression: Flank pain Condition: Stable Disposition: HOME, SELF-CARE Instructions: Flank Pain ([facility]) Additional Instructions: You must follow-up with the 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
[2016-12-23 18:36] LABS: APPEARANCE,URINE CLEAR; BILIRUBIN,URINE NEGATIVE (NEGATIVE); GLUCOSE, URINE >=500 mg/dL (NEGATIVE); KETONES,URINE NEGATIVE (NEGATIVE); LEUKOCYTE ESTERASE,URINE NEGATIVE (NEGATIVE); NITRITE,URINE NEGATIVE (NEGATIVE); PROTEIN,URINE NEGATIVE (NEGATIVE); URINE SPECIFIC GRAVITY 1.016; UROBILINOGEN,URINE NEGATIVE mg/dL (<2.0)
--- NOTE | 2016-12-23 18:50 | RADIOLOGY REPORT (SQ) ---
EXAM DESCRIPTION: CT LTD RENAL STONE PROTOCOL ON COMPLETED DATE/TIME: 12/23/2016 6:30 pm REASON FOR STUDY: flank pain COMPARISON: 07/04/2016 TECHNIQUE: CT scan of the abdomen and pelvis performed without intravenous or oral contrast. Images reviewed with lung, soft tissue, and bone windows. Reconstructed coronal and sagittal MPR images revi ewed. All images stored on PACS. All CT scanners at this facility use dose modulation, iterative reconstruction, and/or weight based d osing when appropriate to reduce radiation dose to as low as reasonably achievable (ALARA). [facility]: Dose Right [facility]: CareDose [facility]: Dose Right [facility]: Teradose 4D [facility]: SportStream RADIATION DOSE: 14.7mGy. LIMITATIONS: None. FINDINGS: LOWER CHEST: No significant findings. No nodules or infiltrates. NON-CONTRASTED LIVER, SPLEEN, ADRENALS: Evaluation limited by lack of IV contrast. No identified sign ificant masses. PANCREAS: No masses. No peripancreatic inflammatory changes. GALLBLADDER: No identified stones by CT criteria. No inflammatory changes to suggest cholecystitis. RIGHT KIDNEY AND URETER: No suspicious masses. Assessment limited by lack of IV contrast. No signif icant calcifications. No hydronephrosis or hydroureter. LEFT KIDNEY AND URETER: No suspicious masses. Assessment limited by lack of IV contrast. No signifi cant calcifications. No hydronephrosis or hydroureter. AORTA AND RETROPERITONEUM: No aneurysm. No retroperitoneal masses or adenopathy. BOWEL AND PERITONEAL CAVITY: The right colon and about half of the transverse colon are absent. An o stomy is present. The remaining colon is unremarkable. The small bowel is of normal caliber. APPENDIX: Surgically absent. PELVIS, BLADDER, AND ABDOMINAL WALL:An ostomy is present on the right. The urinary bladder is incomp letely filled. A catheter is present in the bladder. BONES: Degenerative disc changes are present in the lumbar spine. No osseous lesions are seen. OTHER: No other significant finding. IMPRESSION: Partial colectomy with an ostomy. No urinary pathology is seen. COMMENT: Quality ID # [id number]: Final reports with documentation of one or more dose reduction techniques (e.g., Automated exposure control, adjustment of the mA and/or kV according to patient size, use of iterative reconstruction technique) TECHNICAL DOCUMENTATION: JOB ID: [id number]- All Rights Reserved
--- NOTE | 2016-12-23 18:55 | EKG REPORT ---
SEVERITY:- BORDERLINE ECG - SINUS RHYTHM LEFT AXIS DEVIATION BORDERLINE PROLONGED QT INTERVAL : Confirmed by: Kevin Morales MD 23-Dec-2016 18:54:21
[2016-12-23 19:01] VITALS: BP 128/74
== END 2016-12-23 21:42 | disposition home or self-care (01) ==
LOC: ER 16:34
DX: R10.9 Unspecified abdominal pain (principal); M54.9 Dorsalgia, unspecified
CPT/HCPCS: 36415; 51702; 76380; 80053; 81001; 85025; 85610; 87040; 87086; 93005; 93010; 99284

== ENCOUNTER 2017-04-08 12:52 | Observation (INO) | payer MEDICARE, MEDICAID ==
[2017-04-08] MEDS ORDERED: NORMAL SALINE 1000 ML 1,000 ML IV PRN ×2 (14:55→21:35)
[2017-04-08 15:04] LABS: HEMOGLOBIN 13.9 g/dL (12.0-15.5); MEAN CORPUSCULAR HEMOGLOBIN 33.8 pg (27.0-33.4); MEAN CORPUSCULAR HGB CONC 33.8 g/dL (32.0-36.0); MEAN CORPUSCULAR VOLUME 100 fl (80-97); PLATELET COUNT 243 10^3/uL (150-450); WHITE BLOOD COUNT 9.1 10^3/uL (4.0-10.5)
[2017-04-08 15:24] LABS: ALANINE AMINOTRANSFERASE 26 U/L (9-52); ALBUMIN 3.6 g/dL (3.5-5.0); ALKALINE PHOSPHATASE 92 U/L (38-126); ANION GAP 8 (5-19); ASPARTATE AMINO TRANSFERASE 20 U/L (14-36); BILIRUBIN,DIRECT 0.2 mg/dL (0.0-0.4); BILIRUBIN,TOTAL 0.6 mg/dL (0.2-1.3); BLOOD UREA NITROGEN 24 mg/dL (7-20); CALCIUM 9.1 mg/dL (8.4-10.2); CARBON DIOXIDE 26 mmol/L (22-30); CHLORIDE 104 mmol/L (98-107); GLUCOSE 197 mg/dL (75-110); POTASSIUM 4.5 mmol/L (3.6-5.0); SODIUM 137.6 mmol/L (137-145); TOTAL PROTEIN 6.9 g/dL (6.3-8.2)
[2017-04-08] MEDS ORDERED: (PENDING PHARMACY ID) (Canagliflozin [Invokana] 300 MG) PO SCH (21:45)
[2017-04-08] MEDS ORDERED: (PENDING PHARMACY ID) (Linagliptin [Tradjenta] 5 MG) PO SCH (21:45)
[2017-04-08] MEDS: DULOXETINE HCL 30 MG CAPSULE.DR PO SCH (22:25)
[2017-04-08] MEDS: ATORVASTATIN CALCIUM 20 MG TABLET PO SCH (22:25)
[2017-04-08] MEDS ORDERED: GABAPENTIN 400 MG CAPSULE PO ONE (23:00)
[2017-04-09] MEDS: GABAPENTIN 400 MG CAPSULE PO SCH ×3 (05:15→22:40)
[2017-04-09] MEDS ORDERED: INFLUENZA ADLT QUAD (36MOS+) 2017-18 VAC 0.5 ML SYR IM PRN (05:37)
[2017-04-09 05:47] LABS: APPEARANCE,URINE CLEAR; BILIRUBIN,URINE NEGATIVE (NEGATIVE); COLOR,URINE YELLOW; GLUCOSE, URINE >=500 mg/dL (NEGATIVE); KETONES,URINE NEGATIVE (NEGATIVE); LEUKOCYTE ESTERASE,URINE NEGATIVE (NEGATIVE); NITRITE,URINE NEGATIVE (NEGATIVE); PROTEIN,URINE NEGATIVE (NEGATIVE); URINE SPECIFIC GRAVITY 1.027; UROBILINOGEN,URINE NEGATIVE mg/dL (<2.0)
[2017-04-09] MEDS ORDERED: LANSOPRAZOLE 30 MG TAB.RAP.DR PO SCH (06:00)
--- NOTE | 2017-04-09 09:53 | RADIOLOGY REPORT (SQ) ---
EXAM DESCRIPTION: CT ABD/PELVIS WITH IV ORAL COMPLETED DATE/TIME: 04/08/2017 5:09 pm REASON FOR STUDY: ABD. PAIN R10.84 GENERALIZED ABDOMINAL PAIN COMPARISON: 12/23/2016. TECHNIQUE: CT scan of the abdomen and pelvis performed with intravenous and oral contrast using vandana ronald scanning technique with dynamic intravenous contrast injection. Images reviewed with lung, soft t issue, and bone windows. Reconstructed coronal and sagittal MPR images reviewed. Delayed images for e valuation of the urinary system also acquired. All images stored on PACS. All CT scanners at this facility use dose modulation, iterative reconstruction, and/or weight based d osing when appropriate to reduce radiation dose to as low as reasonably achievable (ALARA). [facility]: Dose Right [facility]: CareDose [facility]: Dose Right [facility]: Teradose 4D [facility]: [employer] CONTRAST TYPE AND DOSE: contrast/concentration: Isovue 370.00 mg/ml; Total Contrast Delivered: 100.0 ml; Total Saline Delivered: 72.0 ml RENAL FUNCTION: BUN 24 creatinine 0.98. RADIATION DOSE: CT Rad equipment meets quality standard of care and radiation dose reduction techniq ues were employed. CTDIvol: 17.5 - 19.6 mGy. DLP: 2124 mGy-cm.. LIMITATIONS: None. FINDINGS: LOWER CHEST: No significant findings. No nodules or infiltrates. LIVER: Normal size. Mild diffuse fatty infiltration. No masses. No dilated ducts. SPLEEN: Normal size. No focal lesions. PANCREAS: No masses. No significant calcifications. No adjacent inflammation or peripancreatic fluid collections. Pancreatic duct not dilated. GALLBLADDER: No identified stones by CT criteria. No inflammatory changes to suggest cholecystitis. ADRENAL GLANDS: No significant masses or asymmetry. RIGHT KIDNEY AND URETER: No solid masses. No significant calcification. No hydronephrosis or hydroure ter. LEFT KIDNEY AND URETER: No solid masses. No significant calcification. No hydronephrosis or hydrouret er. AORTA AND VESSELS: No aneurysm. No dissection. Renal arteries, SMA, celiac without stenosis. RETROPERITONEUM: No retroperitoneal adenopathy, hemorrhage or masses. BOWEL AND PERITONEAL CAVITY: Stable surgical changes. Right hemicolectomy and right lower quadrant i leostomy. No obstruction. No visualized masses. No free fluid. No inflammatory changes or thickenin g of bowel wall. APPENDIX: Normal. PELVIS: No significant masses. Normal bladder. No free fluid. ABDOMINAL WALL: No masses. No hernias. BONES: No significant or acute findings. OTHER: No other significant finding. IMPRESSION: STABLE SURGICAL CHANGES, RIGHT HEMICOLECTOMY AND RIGHT LOWER QUADRANT ILEOSTOMY. NO SIG NIFICANT OR ACUTE FINDINGS IN THE ABDOMEN OR PELVIS. TECHNICAL DOCUMENTATION: JOB ID: [id number] Quality ID # [id number]: Final reports with documentation of one or more dose reduction techniques (e.g., Au tomated exposure control, adjustment of the mA and/or kV according to patient size, use of iterative reconstruction technique) 2010 [employer]- All Rights Reserved
[2017-04-09] MEDS ORDERED: PIOGLITAZONE HCL 30 MG TABLET PO SCH (10:00)
[2017-04-09] MEDS ORDERED: METOPROLOL SUCCINATE 50 MG TAB.SR.24H PO SCH (10:00)
[2017-04-09] MEDS ORDERED: SITAGLIPTIN PHOSPHATE 50 MG TABLET PO SCH (10:00)
[2017-04-09] MEDS ORDERED: LOSARTAN POTASSIUM 50 MG TABLET PO SCH (10:00)
[2017-04-09] MEDS: DULOXETINE HCL 30 MG CAPSULE.DR PO SCH ×2 (10:45→22:40)
[2017-04-09] MEDS ORDERED: ACETAMINOPHEN 325 MG TABLET PO PRN (14:03)
[2017-04-09] MEDS ORDERED: GLUCAGON,HUMAN RECOMB 1 MG INJ IM PRN (20:33)
[2017-04-09] MEDS ORDERED: DEXTROSE 40% GEL 15 GM TUBE X 2 PO PRN (20:33)
[2017-04-09] MEDS ORDERED: DEXTROSE 50%-WATER SYRINGE 25 GM/50 ML DOSE IV PRN (20:33)
[2017-04-09] MEDS ORDERED: DEXTROSE 40% GEL 15 GM TUBE PO PRN (20:33)
[2017-04-09] MEDS ORDERED: DEXTROSE 50%-WATER SYRINGE 12.5 GM/25 ML DOSE IV PRN (20:33)
[2017-04-09] MEDS ORDERED: INSULIN LISPRO 100 UNIT/ML 3 ML VIAL SUBCUT PRN (20:33)
--- NOTE | 2017-04-09 21:51 | PDOC H&P ---
History of Present Illness Admission Date/PCP: 04/08/17 12:52 TOÑA MCLEAN MD History of Present Illness: DARCY NAVA is a 71 year old female,She has multiple comorbid conditions she came to the office for follow-up evaluation of her diabetes, she complained of abdominal pain, she has a history of perforated colon status post colectomy she has a colostomy bag in place she is scheduled for revision of the colostomy bag next month, April 2017 but because the apparent cause of the abdominal pain is not clear in the office setting she was admitted for observation and further evaluation in the hospital.The CAT scan of the abdomen and pelvis with IV contrast was negative for any acute pathology Past Medical History Cardiac Medical History: Reports: Hypertension Pulmonary Medical History: Reports: Bronchitis, Chronic Obstructive Pulmonary Disease (COPD), Pneumonia Denies: Asthma, Tuberculosis Neurological Medical History: Denies: Seizures Endocrine Medical History: Reports: Diabetes Mellitus Type 2 Musculoskeltal Medical History: Reports: Arthritis Psychiatric Medical History: Reports: Depression Hematology: Reports: Anemia Past Surgical History Past Surgical History: Reports: Appendectomy, Hysterectomy, Orthopedic Surgery - left shoulder, Other - Recent history of extended right hemicolectomy with end ileostomy bag Social History Smoking Status: Former Smoker Frequency of Alcohol Use: Occasional Hx Recreational Drug Use: No Drugs: None Hx Prescription Drug Abuse: No - Advance Directive Resuscitation Status: Full Code Family History Family History: COPD, DM, Malignancy - Brother with throat cancer, Other - Father with tuberculosis Parental Family History Reviewed: Yes Children Family History Reviewed: Yes Sibling(s) Family History Reviewed.: Yes Medication/Allergy Home Medications: Atorvastatin Calcium [Lipitor 20 mg Tablet] 20 mg PO QHS 04/08/17 Canagliflozin [Invokana] 300 mg PO DAILY 04/08/17 Duloxetine HCl [Cymbalta] 60 mg PO Q12 04/08/17 Gabapentin [Neurontin] 1,200 mg PO Q8 04/08/17 Linagliptin [Tradjenta] 5 mg PO DAILY 04/08/17 Losartan Potassium [Cozaar 50 mg Tablet] 100 mg PO DAILY 04/08/17 Metoprolol Succinate [Toprol Xl 50 mg Tab.sr] 100 mg PO DAILY 04/08/17 Pioglitazone HCl [Actos] 30 mg PO QAM 04/08/17 RX: Omeprazole 40 mg PO DAILY 04/08/17 Allergies/Adverse Reactions: tapentadol [From Nucynta] Allergy (Verified 10/28/16 13:32) Delirium Iodinated Contrast- Oral and IV Dye [Iodinated Contrast Media - Oral and] Adverse Reaction (Verified 10/28/16 13:32) Generalized rash Review of Systems Constitutional: ABSENT: chills, fever(s), headache(s), weight gain, weight loss Eyes: ABSENT: visual disturbances Ears: ABSENT: hearing changes Cardiovascular: ABSENT: chest pain, dyspnea on exertion, edema, orthropnea, palpitations Respiratory: ABSENT: cough, hemoptysis Gastrointestinal: PRESENT: abdominal pain. ABSENT: constipation, diarrhea, hematemesis, hematochezia, nausea, vomiting Genitourinary: ABSENT: dysuria, hematuria Musculoskeletal: ABSENT: joint swelling Integumentary: ABSENT: rash, wounds Neurological: ABSENT: abnormal gait, abnormal speech, confusion, dizziness, focal weakness, syncope Psychiatric: ABSENT: anxiety, depression, homidical ideation, suicidal ideation Endocrine: ABSENT: cold intolerance, heat intolerance, menstrual abnormalities, polydipsia, polyuria Hematologic/Lymphatic: ABSENT: easy bleeding, easy bruising, lymphadenopathy Physical Exam Vital Signs: Temp Pulse Resp BP Pulse Ox 98.3 F 82 17 103/60 96 04/09/17 15:14 04/09/17 15:14 04/09/17 15:14 04/09/17 15:14 04/09/17 15:14 Intake & Output 04/08/17 04/09/17 04/10/17 06:59 06:59 06:59 Intake Total 720 1845 Output Total 1100 1000 Balance -380 845 Weight 108.409 kg General appearance: PRESENT: no acute distress, well-developed, well-nourished Head exam: PRESENT: atraumatic, normocephalic Eye exam: PRESENT: conjunctiva pink, EOMI, PERRLA. ABSENT: scleral icterus Ear exam: PRESENT: normal external ear exam Mouth exam: PRESENT: moist, tongue midline Neck exam: PRESENT: full ROM Respiratory exam: PRESENT: clear to auscultation [place] Cardiovascular exam: PRESENT: RRR, +S1, +S2. ABSENT: diastolic murmur, rubs, systolic murmur Pulses: PRESENT: normal dorsalis pedis pul, +2 pedal pulses bilateral Vascular exam: PRESENT: normal capillary refill GI/Abdominal exam: PRESENT: normal bowel sounds, soft, tenderness, other - Colostomy bag Rectal exam: PRESENT: deferred Neurological exam: PRESENT: alert, awake, oriented to person, oriented to place , oriented to time, oriented to situation, CN II-XII grossly intact Psychiatric exam: PRESENT: appropriate affect, normal mood Skin exam: PRESENT: dry, intact, warm Results Laboratory Results: 04/08/17 14:17 04/08/17 14:17 04/09/17 05:20 Urine Color YELLOW Urine Appearance CLEAR Urine pH 5.0 Ur Specific [place] 1.027 Urine Protein NEGATIVE Urine Glucose (UA) >=500 H Urine Ketones NEGATIVE Urine Blood NEGATIVE Urine Nitrite NEGATIVE Ur Leukocyte Esterase NEGATIVE Urine WBC (Auto) 1 Urine RBC (Auto) 0 Impressions: Abdomen/Pelvis CT 04/08/17 00:00 IMPRESSION: STABLE SURGICAL CHANGES, RIGHT HEMICOLECTOMY AND RIGHT LOWER QUADRANT ILEOSTOMY. NO SIGNIFICANT OR ACUTE FINDINGS IN THE ABDOMEN OR PELVIS. Assessment & Plan - Diagnosis (1) Abdominal pain Qualifiers: Abdominal location: unspecified location Qualified Code(s): R10.9 - Unspecified abdominal pain Is this a current diagnosis for this admission?: Yes Plan: Patient was admitted for observation and evaluation of abdominal pain CAT scan is negative (2) Type 2 diabetes mellitus with complication Qualifiers: Diabetes mellitus rat exterminator insulin use: with rat exterminator use Qualified Code( s): E11.8 - Type 2 diabetes mellitus with unspecified complications
--- NOTE | 2017-04-09 21:53 | PDOC DISCHARGE SUMMARY ---
General - Admit/Disc Date/PCP Admission Date/Primary Care Provider: 04/08/17 12:52 TOÑA MCLEAN MD Discharge Date: 04/09/17 - Discharge Diagnosis (1) Abdominal pain Is this a current diagnosis for this admission?: Yes - Additional Information Resuscitation Status: Full Code Home Medications: Atorvastatin Calcium [Lipitor 20 mg Tablet] 20 mg PO QHS 04/08/17 Canagliflozin [Invokana] 300 mg PO DAILY 04/08/17 Duloxetine HCl [Cymbalta] 60 mg PO Q12 04/08/17 Gabapentin [Neurontin] 1,200 mg PO Q8 04/08/17 Linagliptin [Tradjenta] 5 mg PO DAILY 04/08/17 Losartan Potassium [Cozaar 50 mg Tablet] 100 mg PO DAILY 04/08/17 Metoprolol Succinate [Toprol Xl 50 mg Tab.sr] 100 mg PO DAILY 04/08/17 Omeprazole 40 mg PO DAILY 04/08/17 Pioglitazone HCl [Actos] 30 mg PO QAM 04/08/17 History of Present Illness History of Present Illness: DARCY NAVA is a 71 year old female,She has multiple comorbid conditions she came to the office for follow-up evaluation of her diabetes, she complained of abdominal pain, she has a history of perforated colon status post colectomy she has a colostomy bag in place she is scheduled for revision of the colostomy bag next month, April 2017 but because the apparent cause of the abdominal pain is not clear in the office setting she was admitted for observation and further evaluation in the hospital.The CAT scan of the abdomen and pelvis with IV contrast was negative for any acute pathology Hospital Course Hospital Course: Patient was admitted for the evaluation of abdominal pain the CAT scan of the abdomen and pelvis with IV contrast was negative for any acute pathology Physical Exam Vital Signs: Temp Pulse Resp BP Pulse Ox 98.3 F 82 17 103/60 96 04/09/17 15:14 04/09/17 15:14 04/09/17 15:14 04/09/17 15:14 04/09/17 15:14 Intake & Output 04/08/17 04/09/17 04/10/17 06:59 06:59 06:59 Intake Total 720 1845 Output Total 1100 1000 Balance -380 845 Weight 108.409 kg General appearance: PRESENT: no acute distress, well-developed, well-nourished Head exam: PRESENT: atraumatic, normocephalic Eye exam: PRESENT: conjunctiva pink, EOMI, PERRLA Ear exam: PRESENT: normal external ear exam Mouth exam: PRESENT: moist, tongue midline Neck exam: PRESENT: full ROM Respiratory exam: PRESENT: clear to auscultation [place] Cardiovascular exam: PRESENT: RRR, +S1, +S2 Pulses: PRESENT: normal dorsalis pedis pul, +2 pedal pulses bilateral Vascular exam: PRESENT: normal capillary refill GI/Abdominal exam: PRESENT: normal bowel sounds, soft, other - Colostomy bag Rectal exam: PRESENT: deferred Neurological exam: PRESENT: alert, awake, oriented to person, oriented to place , oriented to time, oriented to situation, CN II-XII grossly intact. ABSENT: motor sensory deficit Psychiatric exam: PRESENT: appropriate affect, normal mood Skin exam: PRESENT: dry, intact, warm Results Laboratory Results: 04/08/17 14:17 04/08/17 14:17 04/09/17 05:20 Urine Color YELLOW Urine Appearance CLEAR Urine pH 5.0 Ur Specific [place] 1.027 Urine Protein NEGATIVE Urine Glucose (UA) >=500 H Urine Ketones NEGATIVE Urine Blood NEGATIVE Urine Nitrite NEGATIVE Ur Leukocyte Esterase NEGATIVE Urine WBC (Auto) 1 Urine RBC (Auto) 0 Impressions: Abdomen/Pelvis CT 04/08/17 00:00 IMPRESSION: STABLE SURGICAL CHANGES, RIGHT HEMICOLECTOMY AND RIGHT LOWER QUADRANT ILEOSTOMY. NO SIGNIFICANT OR ACUTE FINDINGS IN THE ABDOMEN OR PELVIS.
[2017-04-09] MEDS: ATORVASTATIN CALCIUM 20 MG TABLET PO SCH (22:40)
[2017-04-10 00:33] VITALS: BP 153/87
== END 2017-04-10 00:05 | disposition home or self-care (01) ==
LOC: 5 12:52
PROVIDERS: ADMIT Internal Medicine; ATTEND Internal Medicine
PROC: 3E0234Z Introduction of Serum, Toxoid and Vaccine into Muscle, Percutaneous Approach (ICD-10-PCS; principal; 2017-04-10)
DX: R10.9 Unspecified abdominal pain (principal); E11.42 Type 2 diabetes mellitus with diabetic polyneuropathy; E11.22 Type 2 diabetes mellitus with diabetic chronic kidney disease; I12.9 Hypertensive chronic kidney disease with stage 1 through stage 4 chronic kidney disease, or unspecified chronic kidney disease; N18.3 Chronic kidney disease, stage 3 (moderate); J44.9 Chronic obstructive pulmonary disease, unspecified; Z79.899 Other long term (current) drug therapy; Z79.84 Long term (current) use of oral hypoglycemic drugs; Z90.49 Acquired absence of other specified parts of digestive tract; Z93.3 Colostomy status; Z87.891 Personal history of nicotine dependence; Z90.710 Acquired absence of both cervix and uterus; Z23 Encounter for immunization
CPT/HCPCS: 36415; 87086; 82962 ×2; 85027; 80076; 80048; 81001; 74177; 90686; G0378 ×2; A9270 ×11; J7030; J1815; J3490

== ENCOUNTER 2017-04-21 05:20 | Inpatient (IN) | payer MEDICARE, MEDICAID ==
[2017-04-14 10:23] LABS: HEMATOCRIT 44.4 % (36.0-47.0); HEMOGLOBIN 14.8 g/dL (12.0-15.5); MEAN CORPUSCULAR HEMOGLOBIN 33.4 pg (27.0-33.4); MEAN CORPUSCULAR HGB CONC 33.4 g/dL (32.0-36.0); MEAN CORPUSCULAR VOLUME 100 fl (80-97); PLATELET COUNT 277 10^3/uL (150-450); RED BLOOD COUNT 4.43 10^6/uL (3.72-5.28); RED CELL DISTRIBUTION WIDTH 13.1 % (11.5-14.0); WHITE BLOOD COUNT 9.4 10^3/uL (4.0-10.5)
[2017-04-14 10:42] LABS: ANION GAP 10 (5-19); BLOOD UREA NITROGEN 23 mg/dL (7-20); CALCIUM 9.5 mg/dL (8.4-10.2); CARBON DIOXIDE 26 mmol/L (22-30); CHLORIDE 103 mmol/L (98-107); GLUCOSE 234 mg/dL (75-110); POTASSIUM 4.4 mmol/L (3.6-5.0); SODIUM 138.5 mmol/L (137-145)
--- NOTE | 2017-04-14 11:48 | RADIOLOGY REPORT (SQ) ---
EXAM DESCRIPTION: CHEST PA/LATERAL COMPLETED DATE/TIME: 04/14/2017 11:15 am REASON FOR STUDY: PRE-OP COMPARISON: Chest films 05/15/2016, 07/02/2016, 07/05/2016, 07/14/2016, 08/20/2016 CT abdomen pelvis 04/08/2017 EXAM PARAMETERS: NUMBER OF VIEWS: two views TECHNIQUE: Digital Frontal and Lateral radiographic views of the chest acquired. RADIATION DOSE: NA LIMITATIONS: none FINDINGS: LUNGS AND PLEURA: There is lingular airspace disease atelectasis versus pneumonia, new com pared to prior studies. This should be followed to radiographic clearing, to exclude underlying pierre r or endobronchial lesion. No pleural effusions. No pneumothorax. MEDIASTINUM AND HILAR STRUCTURES: No masses or contour abnormalities. HEART AND VASCULAR STRUCTURES: Heart normal size. No evidence for failure. BONES: No acute findings. HARDWARE: None in the chest. OTHER: No other significant finding. IMPRESSION: Lingular consolidation atelectasis versus pneumonia. TECHNICAL DOCUMENTATION: JOB ID: [id number] [employer]- All Rights Reserved
--- NOTE | 2017-04-14 13:26 | EKG REPORT ---
SEVERITY:- ABNORMAL ECG - SINUS RHYTHM LEFT ANTERIOR FASCICULAR BLOCK : Confirmed by: Kevin Morales MD 14-Apr-2017 13:24:15
[~2017-04-21 05:20] MED LIST changes: +AMPICILLIN SODIUM/SULBACTAM NA 3 GM in NORMAL SALINE 100 ML IV PRN; -EPINEPHRINE INJ 1 MG/10 ML DISP.SYRIN ONE; -FLUMAZENIL INJ 0.5 MG/5 ML VIAL IV ONE; -GLUCAGON,HUMAN RECOMB 1 MG INJ ONE; -GLYCOPYRROLATE INJ 0.4 MG/2 ML VIAL ONE; +LIDOCAINE 0.5% INJ-PF (5 MG/ML) 50 ML SDV SUBCUT PRN; -NALOXONE HCL INJ/PF 0.4 MG/1 ML SDV ONE; +NORMAL SALINE 1000 ML (RENAL PATIENTS) IV PRN; -ONDANSETRON HCL INJ/PF 4 MG/2 ML SDV ONE
[2017-04-21] MEDS ORDERED: ALBUTEROL SULFATE 0.083% NEB 2.5 MG/3 ML AMPUL NEB ONE (06:13)
[2017-04-21] MEDS ORDERED: FENTANYL CITRATE INJ/PF 250 MCG/5 ML AMPULE ONE (06:56)
[2017-04-21] MEDS ORDERED: PROPOFOL INJ 200 MG/20 ML VIAL IV ONE (06:57)
[2017-04-21] MEDS ORDERED: ONDANSETRON HCL INJ/PF 4 MG/2 ML SDV ONE (06:57)
[2017-04-21] MEDS ORDERED: DEXAMETHASONE SOD PHOSPHATE INJ 4 MG/1 ML VIAL ONE (06:57)
[2017-04-21] MEDS ORDERED: MIDAZOLAM 2 MG/2 ML INJ ONE (06:57)
[2017-04-21] MEDS ORDERED: FAMOTIDINE INJ/PF 20 MG/2 ML SDV IV ONE (07:13)
[2017-04-21] MEDS ORDERED: METOCLOPRAMIDE HCL INJ/PF 10 MG/2 ML SDV ONE (07:16)
[2017-04-21] MEDS ORDERED: BUPIVACAINE HCL 0.25 % INJ/PF (2.5 MG/1 ML) 30 ML VIAL ONE (07:18)
[2017-04-21] MEDS ORDERED: BUPIVACAINE INJ/PF LIPOSOME/PF 266 MG/20 ML SDV ONE (07:18)
[2017-04-21] MEDS ORDERED: PROMETHAZINE HCL INJ 25 MG/1 ML VIAL IV PRN (07:59)
[2017-04-21] MEDS ORDERED: MEPERIDINE HCL/PF INJ 25 MG/1 ML DISP.SYRIN IV PRN (07:59)
[2017-04-21] MEDS ORDERED: FENTANYL CITRATE INJ/PF 100 MCG/2 ML AMPUL IV PRN ×2 (07:59)
[2017-04-21] MEDS ORDERED: GLUCAGON,HUMAN RECOMB 1 MG INJ SUBCUT PRN (10:06)
[2017-04-21] MEDS ORDERED: DEXTROSE 40% GEL 15 GM TUBE PO PRN ×2 (10:06)
[2017-04-21] MEDS ORDERED: MORPHINE SULFATE 10 MG/ML INJ IV PRN (10:06)
[2017-04-21] MEDS ORDERED: DEXTROSE 50%-WATER 25 GM/50 ML DISP.SYRIN IV PRN ×2 (10:06)
--- NOTE | 2017-04-21 10:22 | Operative Report ---
Operative Report DATE OF SURGERY: 04/21/17 PREOPERATIVE DIAGNOSIS: 1. 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 2. Status post extended right hemicolectomy with ileostomy POSTOPERATIVE DIAGNOSIS: Same with intra-peritoneal adhesions OPERATION: 1. Takedown of ileostomy. 2. Lysis of adhesions. 3. Ilio- transverse colostomy, stapled anastomosis, with PATTI 55 SURGEON: TORI ALDRICH CHIROPRACTIC TEACHER: EDIN SALGUERO ANESTHESIA: GA TISSUE REMOVED OR ALTERED: Segments of ileostomy disposed of COMPLICATIONS: None ESTIMATED BLOOD LOSS: 100 cc INTRAOPERATIVE FINDINGS: See below PROCEDURE: Patient was taken to the preop holding area to the main operating room where general anesthesia was induced. Abdomen was exposed, ileostomy appliance removed, ileostomy closed with 2-0 Prolene suture. The abdomen was then prepped and draped in sterile fashion with Betadine. Surgical plan and surgical timeout were conducted. We proceeded with ileostomy takedown. A #10 blade was used to excise the ileostomy, and the cutaneous tissue taken down with a combination of blunt and electrocautery dissection. The terminal end of the ileostomy was amputated with a single firing of the PATTI 55 stapler. We got down to the level of the fascia, then stop to this component of the procedure. The abdomen was now open to a standard midline incision above the umbilicus with a #10 blade. A moderate amount of scar tissue in midline. No evidence of hernia. Peritoneal cavity was sharply entered, and filmy adhesions were now encountered. We spent approximately 40 minutes taking down adhesions between the anterior abdominal wall, loops of small bowel, and the adhesions between the midline incision in the ileostomy. The ileostomy was completely dismantled using a combination of sharp, and gentle traction dissection. Once the ileum was brought into the peritoneal cavity, we checked for viability of the bowel and it was excellent. We now spent approximately 30 minutes dissecting out the transverse colon. Limited been previously divided left of middle colic vessels. There were dense adhesions between the distal transverse colon and the gastrocolic omentum and using combination of blunt, electrocautery, and LigaSure dissection, the distal transverse colon was mobilized free. We now brought the transverse colon adjacent to the terminal ileum and prepared for anastomosis. Of note the transverse colon lumen was full of inspissated stool balls. About 6 stool balls were mobilized in a retrograde fashion. We now placed some isolation towels around our operative field, and opened the colon at the tip of the staple line with scissors. The inspissated stool was milked out of the colon lumen without contamination of the field. We now approximated the terminal ileum adjacent to the transverse colon for planned side to side functional end anastomosis using 2-0 Vicryl suture. Enterotomy was made on the antimesenteric border of the terminal ileum, and the transverse colon was brought such that the antimesenteric side was adjacent to the appropriate side of the terminal ileum. We now deployed a single firing of the blue load PATTI 55 stapler creating the anastomosis. We inspected the anastomosis there is no evidence of bleeding, and it was patulous. We now approximated the colotomy and enterotomy with most clamps and completed the anastomosis using a TA 60 stapler. Once this was accomplished we examined the external aspect of the anastomosis and it was felt to be capacious. The mesenteric defect was closed with 2 3-0 Vicryl sutures. We checked for bleeding from our adhesio lysis and there is no mechanical bleeding. We now closed the ileostomy fascial defect in layers, externally with a 0 PDS suture and internally with 0 PDS suture. We are very satisfied with the fascial closure. This point sponge and needle counts correct. We reexamined her anastomosis and was in good shape. There was no evidence of bowel injury or vascular injury or any technical intraoperative complications. Midline incision was closed with 2 double-stranded #1 PDS sutures. Skin both ileostomy takedown site of midline incision closed with jessica, the former in between pieces of Xeroform. Exparel 20 cc of full-strength injected into the subcutaneous tissue. Dressing and abdominal binder applied. Patient tolerated procedure well, extubated, taken recovery in stable condition.
[2017-04-21] MEDS ORDERED: LIDOCAINE 2% INJ-PF (20 MG/ML) 2 ML AMPUL ONE (10:59)
[2017-04-21] MEDS ORDERED: GLYCOPYRROLATE INJ 0.4 MG/2 ML VIAL ONE (10:59)
[2017-04-21] MEDS ORDERED: NEOSTIGMINE METHYLSULFATE 10 MG/10 ML VIAL ONE (10:59)
[2017-04-21] MEDS ORDERED: SUCCINYLCHOLINE CHLORIDE INJ 200 MG/10 ML VIAL ONE (10:59)
[2017-04-21] MEDS ORDERED: ROCURONIUM BROMIDE INJ 50 MG/5 ML VIAL IV ONE (10:59)
[2017-04-21] MEDS ORDERED: KETOROLAC TROMETHAMINE 60 MG/2 ML SDV ONE (10:59)
[2017-04-21] MEDS ORDERED: FENTANYL CITRATE INJ/PF 100 MCG/2 ML AMPUL ONE (11:07)
[2017-04-21] MEDS: FENTANYL CITRATE INJ/PF 100 MCG/2 ML AMPUL IV PRN ×2 (11:07→11:13)
[2017-04-21] MEDS: KETOROLAC TROMETHAMINE INJ/PF 30 MG/1 ML SDV IV SCH ×2 (13:49→20:11)
[2017-04-21] MEDS ORDERED: DEXTROSE 5%-LACTATED RINGERS 500 ML IV ONE (15:30)
[2017-04-21] MEDS ORDERED: AMPICILLIN SODIUM/SULBACTAM NA 3 GM in NORMAL SALINE 100 ML IV PRN (16:00)
[2017-04-21] MEDS: DEXTROSE 5%-LACTATED RINGERS 1,000 ML IV PRN (18:36)
[2017-04-22] MEDS: KETOROLAC TROMETHAMINE INJ/PF 30 MG/1 ML SDV IV SCH ×5 (00:01→23:13)
[2017-04-22] MEDS: DEXTROSE 5%-LACTATED RINGERS 1,000 ML IV PRN ×3 (02:53→17:32)
[2017-04-22] MEDS ORDERED: DEXTROSE 50%-WATER 25 GM/50 ML DISP.SYRIN IV PRN ×2 (08:59)
[2017-04-22] MEDS ORDERED: GLUCAGON,HUMAN RECOMB 1 MG INJ IM PRN (08:59)
[2017-04-22] MEDS ORDERED: DEXTROSE 40% GEL 15 GM TUBE PO PRN ×2 (08:59)
--- NOTE | 2017-04-22 10:40 | PDOC PROGRESS REPORT ---
Subjective Progress Note for:: 04/22/17 Reason For Visit: OPEN ILEOSTOMY Postoperative day 1 status post ileostomy takedown, no complaints, walked in the foster last night. Physical Exam Vital Signs: Temp Pulse Resp BP Pulse Ox 98.1 F 74 16 92/52 L 93 04/22/17 07:38 04/22/17 07:38 04/22/17 07:38 04/22/17 07:38 04/22/17 07:38 Intake & Output 04/21/17 04/22/17 04/23/17 06:59 06:59 06:59 Intake Total 0 5600 Output Total 2325 Balance 0 3275 Weight 115.5 kg General appearance: PRESENT: no acute distress Head exam: PRESENT: normocephalic Respiratory exam: PRESENT: unlabored, other GI/Abdominal exam: PRESENT: other - Abdominal binder intact; not removed; abdomen soft nondistended Results Laboratory Results: 04/14/17 08:55 04/14/17 08:55 Impressions: Chest X-Ray 04/14/17 11:05 IMPRESSION: Lingular consolidation atelectasis versus pneumonia. Assessment & Plan - Diagnosis (1) Ileostomy present Is this a current diagnosis for this admission?: Yes Plan: Patient is one day status post ileostomy takedown with primary stapled anastomosis, doing well, no complications, no acute medical issues postoperatively Recommendations: 1. Discontinue Gaines catheter; patient reports she is high risk for urinary tract infections with or without Gaines catheter. Patient also reports she urinates about 2 times a day. 2. Resume preoperative medications by mouth, as well as sliding scale fingerstick blood sugar and insulin as needed 3. We will start clear liquids.
[2017-04-22] MEDS: GABAPENTIN 400 MG CAPSULE PO SCH ×2 (17:31→22:15)
[2017-04-22] MEDS: INSULIN REG, HUMAN 100 UNIT/ML 3 ML VIAL (PYX) SUBCUT PRN (18:02)
[2017-04-22] MEDS ORDERED: (PENDING PHARMACY ID) (Pitavastatin Calcium [Livalo] 4 MG) PO SCH (22:00)
[2017-04-22] MEDS: INSULIN DETEMIR 100 UNIT/ML 3 ML PEN SUBCUT SCH (22:15)
[2017-04-23] MEDS: LANSOPRAZOLE 30 MG TAB.RAP.DR PO SCH (05:44)
[2017-04-23] MEDS: GABAPENTIN 400 MG CAPSULE PO SCH ×3 (05:44→21:41)
[2017-04-23] MEDS: KETOROLAC TROMETHAMINE INJ/PF 30 MG/1 ML SDV IV SCH ×4 (05:44→23:22)
[2017-04-23] MEDS: ALBUTEROL SULFATE 0.083% NEB 2.5 MG/3 ML AMPUL NEB PRN ×2 (08:56→14:48)
[2017-04-23] MEDS: DULOXETINE HCL 30 MG CAPSULE.DR PO SCH (09:59)
[2017-04-23] MEDS: PIOGLITAZONE HCL 30 MG TABLET PO SCH (09:59)
[2017-04-23] MEDS: METOPROLOL SUCCINATE 50 MG TAB.SR.24H PO SCH (10:00)
[2017-04-23] MEDS ORDERED: (PENDING PHARMACY ID) (Linagliptin [Tradjenta] 5 MG) PO SCH (10:00)
[2017-04-23] MEDS ORDERED: (PENDING PHARMACY ID) (Duloxetine Hcl [Cymbalta] 120 MG) PO SCH (10:00)
[2017-04-23] MEDS ORDERED: (PENDING PHARMACY ID) (Canagliflozin [Invokana] 300 MG) PO SCH (10:00)
[2017-04-23] MEDS ORDERED: (PENDING PHARMACY ID) (Biotin [Biotin 1 Mg Tablet] 1 MG) PO SCH (10:00)
[2017-04-23] MEDS ORDERED: ASPIRIN 81 MG TABLET, ENT COATED PO SCH (10:00)
[2017-04-23] MEDS: SITAGLIPTIN PHOSPHATE 50 MG TABLET PO SCH (10:00)
[2017-04-23] MEDS: MULTIVITAMIN TABLET PO SCH (10:01)
[2017-04-23] MEDS: LOSARTAN POTASSIUM 50 MG TABLET PO SCH (10:01)
[2017-04-23] MEDS: TIOTROPIUM BROMIDE DPI 5 CAP/KIT (18 MCG/CAP) IH SCH (10:02)
[2017-04-23] MEDS: ALBUTEROL SULFATE HFA (90 MCG/PUFF) 200 PUFF/8.5 GM MDI IH PRN (10:02)
[2017-04-23 10:13] LABS: HEMATOCRIT 36.6 % (36.0-47.0); HEMOGLOBIN 12.3 g/dL (12.0-15.5); MEAN CORPUSCULAR HEMOGLOBIN 33.7 pg (27.0-33.4); MEAN CORPUSCULAR HGB CONC 33.6 g/dL (32.0-36.0); MEAN CORPUSCULAR VOLUME 101 fl (80-97); PLATELET COUNT 220 10^3/uL (150-450); RED BLOOD COUNT 3.64 10^6/uL (3.72-5.28); RED CELL DISTRIBUTION WIDTH 13.2 % (11.5-14.0); WHITE BLOOD COUNT 9.8 10^3/uL (4.0-10.5)
[2017-04-23] MEDS ORDERED: FUROSEMIDE INJ/PF 20 MG/2 ML SDV IV ONE (11:50)
[2017-04-23] MEDS ORDERED: DEXTROSE 5%-LACTATED RINGERS 1,000 ML IV PRN (11:51)
--- NOTE | 2017-04-23 11:56 | PDOC PROGRESS REPORT ---
Subjective Progress Note for:: 04/23/17 Reason For Visit: OPEN ILEOSTOMY Postoperative day 2 status post ileostomy takedown, patient had a bloody bowel movement this morning with a small stool. She is having some wheezing and congestion in her chest. Was not able to void 14 hours after the Gaines was removed so was reinserted yesterday evening. Urine output has been acceptable. She has been up to ambulate. She tolerated liquids no nausea or vomiting. Physical Exam Vital Signs: Temp Pulse Resp BP Pulse Ox 98.6 F 105 H 18 140/79 H 97 04/23/17 07:49 04/23/17 08:27 04/23/17 07:49 04/23/17 07:49 04/23/17 08:27 Intake & Output 04/22/17 04/23/17 04/24/17 06:59 06:59 06:59 Intake Total 5600 442 Output Total 2325 2000 Balance 3275 -1558 Weight 115.5 kg 115.5 kg General appearance: PRESENT: mild distress Respiratory exam: PRESENT: wheezes, other - And some respiratory gurgling GI/Abdominal exam: PRESENT: other - Abdomen with some edema; operative dressings removed; Xeroform in between jessica at ostomy site removed. Abdominal wall washed and 4 x 4's were reapplied and binder replaced Results Laboratory Results: 04/23/17 09:20 04/14/17 08:55 04/23/17 09:20 WBC 9.8 RBC 3.64 L Hgb 12.3 Hct 36.6 MCV 101 H MCH 33.7 H MCHC 33.6 RDW 13.2 Plt Count 220 Impressions: Chest X-Ray 04/14/17 11:05 IMPRESSION: Lingular consolidation atelectasis versus pneumonia. Assessment & Plan - Diagnosis (1) Ileostomy present Is this a current diagnosis for this admission?: Yes Plan: Patient is postoperative day 2 status post open ileostomy takedown with stapled anastomosis, doing reasonably well, with early return of bowel function; bloody bowel movement likely secondary to blood from staple line; hemoglobin down 2 g from admission; patient hemodynamically stable. Principal issue is mild pulmonary congestion from volume overload. End: 1. Cut back on IV fluids and give Lasix 20 mg IV now. 2. Keep on clear liquids for today. 3. Continue ambulation; home medications resumed. 4. Patient understands I will be out of town and surgical lists will be covering in my absence.
--- NOTE | 2017-04-23 12:34 | PDOC PROGRESS REPORT ---
Subjective Progress Note for:: 04/23/17 Subjective:: Postop day # 2 status post ileostomy reversal She had a bloody bowel movement mixed with a small amount of stool at 7am ( about 45 minutes before I saw her) this morning. She felt transiently slightly dizzy when she got up to use the potty as this was happening but has otherwise been fine. Had to have the wilson catheter re-inserted last night for urinary retention; she has been having adequate output. She was noted have a wheeze but told me that was normal for her as she has COPD. She is presently on a clear liquid diet which she is tolerating. She denies any abdominal pain outside of her incisions, no nausea or vomiting. Reason For Visit: OPEN ILEOSTOMY Physical Exam Vital Signs: Temp Pulse Resp BP Pulse Ox 98.6 F 105 H 18 140/79 H 97 04/23/17 07:49 04/23/17 08:27 04/23/17 07:49 04/23/17 07:49 04/23/17 08:27 Intake & Output 04/22/17 04/23/17 04/24/17 06:59 06:59 06:59 Intake Total 5600 442 Output Total 2325 2000 Balance 3275 -1558 Weight 115.5 kg 115.5 kg General appearance: PRESENT: no acute distress, obese Head exam: PRESENT: atraumatic, normocephalic Eye exam: PRESENT: conjunctiva pink, EOMI, PERRLA. ABSENT: scleral icterus Ear exam: PRESENT: normal external ear exam Neck exam: ABSENT: carotid bruit, JVD, lymphadenopathy, thyromegaly Respiratory exam: PRESENT: rhonchi, wheezes. ABSENT: rales Cardiovascular exam: PRESENT: RRR. ABSENT: diastolic murmur, rubs, systolic murmur GI/Abdominal exam: PRESENT: other - midline dressing is clean and dry, RLQ dressing slightly stained with old dried blood. Rectal exam: PRESENT: other - visual inspection only: no active bleeding, no lacerations. Gentrourinary exam: PRESENT: indwelling catheter Neurological exam: PRESENT: alert, awake, oriented to person, oriented to place , oriented to time, oriented to situation, CN II-XII grossly intact. ABSENT: motor sensory deficit Results Laboratory Results: 04/23/17 09:20 04/14/17 08:55 04/23/17 09:20 WBC 9.8 RBC 3.64 L Hgb 12.3 Hct 36.6 MCV 101 H MCH 33.7 H MCHC 33.6 RDW 13.2 Plt Count 220 Impressions: Chest X-Ray 04/14/17 11:05 IMPRESSION: Lingular consolidation atelectasis versus pneumonia. Assessment & Plan - Diagnosis (1) Post-op bleeding Qualifiers: Laterality: unspecified laterality Is this a current diagnosis for this admission?: Yes - Plan Summary Plan Summary: rectal bleed POD2 post ileostomy reversal Patient hemodynamically stable Will check an H/H. Continue to monitor. Continue clear liquids for now. Plan on DC wilson and straight cath if further retention.
[2017-04-23] MEDS: INSULIN REG, HUMAN 100 UNIT/ML 3 ML VIAL (PYX) SUBCUT PRN ×2 (12:38→18:11)
[2017-04-23] MEDS: FLUTICASONE/SALMETEROL DISKUS 500-50 MCG/DOSE IH SCH (21:41)
[2017-04-23] MEDS: INSULIN DETEMIR 100 UNIT/ML 3 ML PEN SUBCUT SCH (21:41)
[2017-04-23] MEDS ORDERED: FLUTICASONE/SALMETEROL DISKUS 500-50 MCG/DOSE IH SCH (22:00)
[2017-04-23] MEDS ORDERED: PIPERACILLIN SODIUM/TAZOBACTAM 3.375 GM in NORMAL SALINE 100 ML IV ONE (22:00)
[2017-04-24 01:25] LABS: ABSOLUTE BASOPHILS # (AUTO) 0.1 10^3/uL (0.0-0.2); ABSOLUTE EOSINOPHILS # (AUTO) 0.3 10^3/uL (0.0-0.6); ABSOLUTE LYMPHOCYTES (AUTO) 1.2 10^3/uL (0.5-4.7); ABSOLUTE MONOCYTES (AUTO) 0.9 10^3/uL (0.1-1.4); ABSOLUTE NEUT (AUTO) 17.1 10^3/uL (1.7-8.2); BASOPHILS % (AUTO) 0.3 % (0-2); EOSINOPHILS % (AUTO) 1.3 % (0-6); HEMATOCRIT 34.1 % (36.0-47.0); HEMOGLOBIN 11.4 g/dL (12.0-15.5); LYMPHOCYTES % (AUTO) 6.2 % (13-45); MEAN CORPUSCULAR HEMOGLOBIN 33.6 pg (27.0-33.4); MEAN CORPUSCULAR HGB CONC 33.6 g/dL (32.0-36.0); MEAN CORPUSCULAR VOLUME 100 fl (80-97); MONOCYTES % (AUTO) 4.8 % (3-13); PLATELET COUNT 195 10^3/uL (150-450); RED CELL DISTRIBUTION WIDTH 13.1 % (11.5-14.0); SEGMENTED NEUTROPHILS % (AUTO) 87.4 % (42-78); TOTAL CELLS COUNTED % (AUTO) 100 %; WHITE BLOOD COUNT 19.6 10^3/uL (4.0-10.5)
[2017-04-24 01:36] LABS: CREATINE KINASE MB 0.68 ng/mL (<4.55)
[2017-04-24 01:37] LABS: TROPONIN I < 0.012 ng/mL
[2017-04-24 01:37] LABS: ALANINE AMINOTRANSFERASE 20 U/L (9-52); ALBUMIN 2.9 g/dL (3.5-5.0); ALKALINE PHOSPHATASE 72 U/L (38-126); ANION GAP 8 (5-19); ASPARTATE AMINO TRANSFERASE 21 U/L (14-36); BILIRUBIN,DIRECT 0.2 mg/dL (0.0-0.4); BILIRUBIN,TOTAL 1.6 mg/dL (0.2-1.3); BLOOD UREA NITROGEN 11 mg/dL (7-20); CALCIUM 8.3 mg/dL (8.4-10.2); CARBON DIOXIDE 26 mmol/L (22-30); CHLORIDE 108 mmol/L (98-107); GLUCOSE 91 mg/dL (75-110); POTASSIUM 3.7 mmol/L (3.6-5.0); SODIUM 142.2 mmol/L (137-145); TOTAL PROTEIN 5.7 g/dL (6.3-8.2)
[2017-04-24] MEDS: PIPERACILLIN SODIUM/TAZOBACTAM 3.375 GM in NORMAL SALINE 100 ML IV SCH ×4 (03:04→21:20)
--- NOTE | 2017-04-24 03:24 | RADIOLOGY REPORT (SQ) ---
EXAM DESCRIPTION: CHEST SINGLE VIEW CLINICAL HISTORY: sob, rule out pulmonary edema COMPARISON: 04/14/2017 FINDINGS: Single frontal view of the chest. Atherosclerotic calcification aortic arch. Heart is not enlarged. Left basilar airspace opacity. No pneumothorax. No displaced rib fractures identified. Upper abdominal soft tissues are unremarkable. IMPRESSION: 1. Left basilar airspace opacity compatible with pneumonia.
[2017-04-24] MEDS: KETOROLAC TROMETHAMINE INJ/PF 30 MG/1 ML SDV IV SCH ×4 (05:04→23:12)
[2017-04-24] MEDS: GABAPENTIN 400 MG CAPSULE PO SCH ×3 (05:04→21:20)
[2017-04-24] MEDS: LANSOPRAZOLE 30 MG TAB.RAP.DR PO SCH (05:04)
[2017-04-24 07:24] LABS: ANION GAP 6 (5-19); BLOOD UREA NITROGEN 12 mg/dL (7-20); CALCIUM 8.6 mg/dL (8.4-10.2); CARBON DIOXIDE 28 mmol/L (22-30); CHLORIDE 107 mmol/L (98-107); GLUCOSE 53 mg/dL (75-110); POTASSIUM 3.4 mmol/L (3.6-5.0); SODIUM 141.1 mmol/L (137-145)
--- NOTE | 2017-04-24 08:06 | PDOC PROGRESS REPORT ---
Subjective Progress Note for:: 04/24/17 Subjective:: no pain Reason For Visit: OPEN ILEOSTOMY Physical Exam Vital Signs: Temp Pulse Resp BP Pulse Ox 97.8 F 86 24 H 128/62 H 99 04/24/17 03:49 04/24/17 03:49 04/24/17 03:49 04/24/17 03:49 04/24/17 03:49 Intake & Output 04/23/17 04/24/17 04/25/17 06:59 06:59 06:59 Intake Total 442 1278 Output Total 1999 0959 Balance -5016 -949 Weight 115.5 kg 115 kg GI/Abdominal exam: PRESENT: other - soft abdomen , no distention Results Laboratory Results: 04/24/17 00:49 04/24/17 06:06 04/23/17 04/24/17 04/24/17 09:20 00:49 01:09 WBC 9.8 19.6 H RBC 3.64 L 3.40 L Hgb 12.3 11.4 L Hct 36.6 34.1 L MCV 101 H 100 H MCH 33.7 H 33.6 H MCHC 33.6 33.6 RDW 13.2 13.1 Plt Count 220 195 Seg Neutrophils % 87.4 H Lymphocytes % 6.2 L Monocytes % 4.8 Eosinophils % 1.3 Basophils % 0.3 Absolute Neutrophils 17.1 H Absolute Lymphocytes 1.2 Absolute Monocytes 0.9 Absolute Eosinophils 0.3 Absolute Basophils 0.1 Sodium 142.2 Potassium 3.7 Chloride 108 H Carbon Dioxide 26 Anion Gap 8 BUN 11 Creatinine 0.85 Est GFR ( Amer) > 60 Est GFR (Non-Af Amer) > 60 Glucose 91 Calcium 8.3 L Total Bilirubin 1.6 H AST 21 ALT 20 Alkaline Phosphatase 72 Total Protein 5.7 L Albumin 2.9 L 04/24/17 06:06 WBC RBC Hgb Hct MCV MCH MCHC RDW Plt Count Seg Neutrophils % Lymphocytes % Monocytes % Eosinophils % Basophils % Absolute Neutrophils Absolute Lymphocytes Absolute Monocytes Absolute Eosinophils Absolute Basophils Sodium 141.1 Potassium 3.4 L Chloride 107 Carbon Dioxide 28 Anion Gap 6 BUN 12 Creatinine 0.89 Est GFR ( Amer) > 60 Est GFR (Non-Af Amer) > 60 Glucose 53 L Calcium 8.6 Total Bilirubin AST ALT Alkaline Phosphatase Total Protein Albumin 04/24/17 04/24/17 00:49 00:49 Creatine Kinase 46 CK-MB (CK-2) 0.68 Troponin I < 0.012 Impressions: Chest X-Ray 04/24/17 00:00 IMPRESSION: 1. Left basilar airspace opacity compatible with pneumonia. Assessment & Plan - Plan Summary Plan Summary: post op ileus , resolving liquid diet
[2017-04-24] MEDS: PIOGLITAZONE HCL 30 MG TABLET PO SCH (08:47)
[2017-04-24] MEDS: METOPROLOL SUCCINATE 50 MG TAB.SR.24H PO SCH (09:19)
[2017-04-24] MEDS: TIOTROPIUM BROMIDE DPI 5 CAP/KIT (18 MCG/CAP) IH SCH (09:19)
[2017-04-24] MEDS: SITAGLIPTIN PHOSPHATE 50 MG TABLET PO SCH (09:19)
[2017-04-24] MEDS: MULTIVITAMIN TABLET PO SCH (09:19)
[2017-04-24] MEDS: DULOXETINE HCL 30 MG CAPSULE.DR PO SCH (09:20)
[2017-04-24] MEDS: FLUTICASONE/SALMETEROL DISKUS 500-50 MCG/DOSE IH SCH ×2 (09:20→21:20)
[2017-04-24] MEDS: LOSARTAN POTASSIUM 50 MG TABLET PO SCH (09:23)
--- NOTE | 2017-04-24 11:28 | PROGRESS NOTE E ---
Progress Note NAME: DARCY NAVA : 1945 AGE: 71Y DATE: 04/24/2017 ROOM: 535 SUBJECTIVE: The patient is a 71-year-old female who came in for surgical reversal of the ileostomy yesterday. Referred for COPD and asthma management. The patient spiked a temperature to 100 degrees Fahrenheit last night. White blood cell count went up to 19,000 last night. Chest x-ray showing increasing opacity in the left lung base. Noted this lingular opacity on the chest x-ray in March 2017. Last night opacity in the left lung appeared to be worsening, suggestive of pneumonic process. Patient was started on Zosyn last night IV and Advair 500 mcg inhaler 1 puff b.i.d. This morning patient feels better. Fever seems to resolved. Patient coughs yellow/green phlegm but becoming clearer. There is no hemoptysis. Denies any chest pain. Patient denies any nausea or vomiting. Complains about some bloody stools. Denies any worsening abdominal pain. No dysuria. PHYSICAL EXAMINATION: GENERAL: Patient is awake, alert, and oriented x3. VITAL SIGNS: Blood pressure of 92/75, heart rate of 85 beats per minute, temperature 97.6. Patient's saturation is 98% on 2 L nasal cannula. Patient appeared comfortable and sitting on the edge of the bed and eating breakfast. CHEST AND LUNGS: No wheezing. No rhonchi. No coarse crackles. CARDIOVASCULAR: S1, S2 distant. Normal rate and regular rhythm. ABDOMEN: Flabby and slightly tender. EXTREMITIES: No joint swelling. No cellulitis. LABORATORY: CBC done this morning at 12:49 a.m. showed white count of 19,600; hemoglobin is 11.4; hematocrit is 34.1, platelet count is 195. No bands noted. Chemistry showed sodium of 141.1, potassium 3.4, chloride 107, CO2 is 28, BUN is 12, creatinine is 0.89, glucose is 53, calcium is 8.6. Chest x-ray show increased opacity involving the left lung base but there is no pneumothorax and no pleural effusion. ASSESSMENT: 1. PNEUMONIA OF LEFT LUNG BASE. Blood cultures are pending and sputum cultures are pending. Appears to be steadily improving. 2. COPD/ASTHMA. Apparently stable and not in acute exacerbation. 3. HISTORY OF RECENT REVERSAL OF ILEOSTOMY. PLAN AND RECOMMENDATIONS: 1. We will continue the Zosyn for now IV every 6 hours. 2. Continue Advair 500 mcg inhaler 1 puff b.i.d. 3. Continue the Spiriva inhaler 1 capsule daily. 4. We will repeat the CBC and chemistry tomorrow morning. 5. Patient oxygen therapy to be titrated with saturation 91-94% by nasal cannula. 6. Patient may need IV antibiotics over the weekend, and the patient may be able to tolerate the p.o. Levaquin for another 10 days when discharged home, if she continues to improve in the next few days. 7. We will recommend pulmonary clinic followup upon discharge. DICTATING PHYSICIAN: RUFINO GARZA MD,SUSIE,MPH [id number] PHY#: [id number] ID: [id number] JOB#: [id number] ACCT: [id number] cc: > MTDD
[2017-04-24] MEDS: INSULIN REG, HUMAN 100 UNIT/ML 3 ML VIAL (PYX) SUBCUT PRN (18:31)
--- NOTE | 2017-04-24 20:54 | CONSULTATION REPORT E ---
Consultation Report NAME: DARCY NAVA : 1945 AGE: 71Y DATE: 04/23/2017 ROOM: 535 A TO: RUFINO GARZA M.D. FROM: TORI CARRANZA M.D. Requesting Physician The patient is a 71-year-old female who came in for open ileostomy reversal status today. She is presenting with rhonchi, wheezing and crackles following surgery, when the patient was transferred to the room. The patient claimed that she is taking Spiriva inhaler once a day at home and Advair 500 mcg inhaler 1 puff b.i.d. She has had of COPD. Never smoked. Denies any fever, chills, increased cough, sputum production, or hemoptysis. No chest pain. Complained about increased dyspnea. Nurse noted this morning that patient presented increased crackling sounds from her chest. No vomiting. No diarrhea or nausea. PAST MEDICAL HISTORY: Hypertension, COPD, chronic bronchitis. Denies any asthma or tuberculosis. History of Coronary artery disease. No history of DVT. Hypercholesterolemia. Hypertension. Denies history of heart cath. Denies stroke or seizures. Has history of diabetes type 2, arthritis, depression. History of appendectomy, hysterectomy, orthopedic surgery, left shoulder, right hemicolectomy and ileostomy. SOCIAL HISTORY: Denies tobacco use or smoking history. FAMILY HISTORY: COPD, diabetes mellitus. Her mother had throat cancer. Father had tuberculosis. MEDICATIONS: 1. Tylenol with codeine. 2. Albuterol inhaler. 3. Aspirin. 4. Calcium carbonate. 5. Invokana. 6. Vitamin B12. 7. Advair 250/50 inhaler 1 puff b.i.d. 8. Gabapentin. 9. Insulin. 10. Losartan. 11. Metoprolol. 12. Omeprazole. 13. Actos. ALLERGIES: 1. ORAL CONTRAST REVIEW OF SYSTEMS: CONSTITUTIONAL: No fever and no chills. CHEST/LUNGS: Coughing sound over today. Some yellow-green phlegm. No hemoptysis. CARDIOVASCULAR: No chest pain or dizziness. GENITOURINARY: No dysuria or hematuria or flank pain. ABDOMEN: Status post ileostomy reversal. Abdomen is soft and nondistended. Slight tenderness EXTREMITIES: No joint swelling or cellulitis. PHYSICAL EXAMINATION: GENERAL: The patient is awake, alert, oriented x3. VITAL SIGNS: Blood pressure of 128/52. Temperature is 98.1. Respirations 19. Oxygen is 98% on room air. EYES: No jaundice or pallor. EARS, NOSE, AND THROAT: No ear drainage. No nasal discharge. HEAD AND NECK: No scalp swelling. No neck tenderness. CHEST AND LUNGS: No wheezing. Slight crackling sound, left lung. No rhonchi noted. ABDOMEN: Flabby. Positive bowel sounds. Soft. Slightly tender in operative wound area. EXTREMITIES: No joint swelling. No cellulitis. LABORATORY: CBC done today showed a white count of 9.8, hemoglobin 12.3, hematocrit 36.6, and platelet count 220. Chemistries done today showed a sodium of 138, potassium 4.4, BUN 33, creatinine 0.97, glucose is 234, calcium is 10.5. Creatinine clearance more than 90. ASSESSMENT: 1. Pulmonary infiltrate, new, in the lingular area, left. Possible atelectasis versus a pneumonic process, early pneumonia. Patient received unasyn IV at the preop, and it was ordered for p.r.n. thereafter. 2. COPD/Asthma - currently stable, not in acute exacerbation. The patient claimed that she was taking Advair 500 mcg inhaler 1 puff BID and Spiriva inhaler 1 capsule daily. Will continue both inhalers. PLAN AND RECOMMENDATIONS: 1. Will discontinue the IV unasyn and will change to Zosyn 3.375 grams IV every 6 hours. 2. Will continue the Advair 500 mcg inhaler 1 puff daily. 3. Continue Spiriva inhaler 1 capsule daily. 4. Will provide oxygen 2 liters nasal canula and keep O2 sat 91-94% DICTATING PHYSICIAN: RUFINO GARZA MD,SUSIE,MPH [id number] PHY#: [id number] ID: [id number] JOB#: [id number] ACCT: [id number] cc:RUFINO GARZA M.D. > MTDD
[2017-04-24] MEDS: INSULIN DETEMIR 100 UNIT/ML 3 ML PEN SUBCUT SCH (21:20)
[2017-04-25] MEDS: PIPERACILLIN SODIUM/TAZOBACTAM 3.375 GM in NORMAL SALINE 100 ML IV SCH ×4 (02:56→20:34)
[2017-04-25] MEDS: GABAPENTIN 400 MG CAPSULE PO SCH ×3 (05:56→22:03)
[2017-04-25] MEDS: LANSOPRAZOLE 30 MG TAB.RAP.DR PO SCH (05:57)
[2017-04-25] MEDS: KETOROLAC TROMETHAMINE INJ/PF 30 MG/1 ML SDV IV SCH ×2 (06:02→11:51)
[2017-04-25 07:21] LABS: ABSOLUTE EOSINOPHILS # (AUTO) 0.4 10^3/uL (0.0-0.6); ABSOLUTE LYMPHOCYTES (AUTO) 0.9 10^3/uL (0.5-4.7); ABSOLUTE MONOCYTES (AUTO) 0.7 10^3/uL (0.1-1.4); ABSOLUTE NEUT (AUTO) 9.1 10^3/uL (1.7-8.2); BASOPHILS % (AUTO) 0.3 % (0-2); EOSINOPHILS % (AUTO) 3.9 % (0-6); HEMATOCRIT 30.7 % (36.0-47.0); HEMOGLOBIN 10.5 g/dL (12.0-15.5); LYMPHOCYTES % (AUTO) 8.3 % (13-45); MEAN CORPUSCULAR HEMOGLOBIN 33.9 pg (27.0-33.4); MEAN CORPUSCULAR HGB CONC 34.2 g/dL (32.0-36.0); MEAN CORPUSCULAR VOLUME 99 fl (80-97); MONOCYTES % (AUTO) 6.3 % (3-13); PLATELET COUNT 216 10^3/uL (150-450); SEGMENTED NEUTROPHILS % (AUTO) 81.2 % (42-78); TOTAL CELLS COUNTED % (AUTO) 100 %; WHITE BLOOD COUNT 11.2 10^3/uL (4.0-10.5)
[2017-04-25 07:34] LABS: ANION GAP 11 (5-19); BLOOD UREA NITROGEN 14 mg/dL (7-20); CALCIUM 8.4 mg/dL (8.4-10.2); CARBON DIOXIDE 24 mmol/L (22-30); CHLORIDE 104 mmol/L (98-107); GLUCOSE 90 mg/dL (75-110); POTASSIUM 3.6 mmol/L (3.6-5.0); SODIUM 139.4 mmol/L (137-145)
[2017-04-25] MEDS: FLUTICASONE/SALMETEROL DISKUS 500-50 MCG/DOSE IH SCH ×2 (09:17→22:03)
[2017-04-25] MEDS: MULTIVITAMIN TABLET PO SCH (09:17)
[2017-04-25] MEDS: SITAGLIPTIN PHOSPHATE 50 MG TABLET PO SCH (09:17)
[2017-04-25] MEDS: TIOTROPIUM BROMIDE DPI 5 CAP/KIT (18 MCG/CAP) IH SCH (09:17)
[2017-04-25] MEDS: METOPROLOL SUCCINATE 50 MG TAB.SR.24H PO SCH (09:19)
[2017-04-25] MEDS: PIOGLITAZONE HCL 30 MG TABLET PO SCH (09:19)
[2017-04-25] MEDS: LOSARTAN POTASSIUM 50 MG TABLET PO SCH (09:19)
[2017-04-25] MEDS: DULOXETINE HCL 30 MG CAPSULE.DR PO SCH (09:19)
--- NOTE | 2017-04-25 15:52 | PDOC PROGRESS REPORT ---
Subjective Progress Note for:: 04/25/17 Subjective:: Feeling better tolearting diet had BM not ambulating yet Reason For Visit: OPEN ILEOSTOMY Physical Exam Vital Signs: Temp Pulse Resp BP Pulse Ox 98.8 F 76 20 97/56 L 97 04/25/17 11:43 04/25/17 11:43 04/25/17 11:43 04/25/17 11:43 04/25/17 11:43 Intake & Output 04/24/17 04/25/17 04/26/17 06:59 06:59 06:59 Intake Total 1278 2850 Output Total 1925 2650 Balance -647 200 Weight 115 kg 117.6 kg GI/Abdominal exam: PRESENT: other - Abdomen soft incisions clean Results Laboratory Results: 04/25/17 06:44 04/25/17 06:44 04/25/17 04/25/17 06:44 06:44 WBC 11.2 H RBC 3.10 L Hgb 10.5 L Hct 30.7 L MCV 99 H MCH 33.9 H MCHC 34.2 RDW 13.0 Plt Count 216 Seg Neutrophils % 81.2 H Lymphocytes % 8.3 L Monocytes % 6.3 Eosinophils % 3.9 Basophils % 0.3 Absolute Neutrophils 9.1 H Absolute Lymphocytes 0.9 Absolute Monocytes 0.7 Absolute Eosinophils 0.4 Absolute Basophils 0.0 Sodium 139.4 Potassium 3.6 Chloride 104 Carbon Dioxide 24 Anion Gap 11 BUN 14 Creatinine 0.90 Est GFR ( Amer) > 60 Est GFR (Non-Af Amer) > 60 Glucose 90 Calcium 8.4 04/24/17 04/24/17 00:49 00:49 Creatine Kinase 46 CK-MB (CK-2) 0.68 Troponin I < 0.012 Impressions: Chest X-Ray 04/24/17 00:00 IMPRESSION: 1. Left basilar airspace opacity compatible with pneumonia. Assessment & Plan - Plan Summary Plan Summary: GI tract recovered well patient status overall need to improve with more mobility Physical therapy Ambulate frequently communicated to nursing staff
[2017-04-25] MEDS: KETOROLAC TROMETHAMINE 10 MG TABLET PO SCH ×2 (18:02→23:32)
[2017-04-25] MEDS: INSULIN REG, HUMAN 100 UNIT/ML 3 ML VIAL (PYX) SUBCUT PRN (18:02)
--- NOTE | 2017-04-25 18:53 | PROGRESS NOTE E ---
Progress Note NAME: DARCY NAVA : 1945 AGE: 71Y DATE: 04/25/2017 ROOM: 535 SUBJECTIVE: Patient is a 71-year-old female who came in for reversal of the ileostomy. Developed pneumonia, left lung base, following surgery. Currently better on IV Zosyn and currently treated for COPD/asthma. Patient feels a lot better. She was coughing out brownish phlegm yesterday and today appears to be resolving. Complained about difficulty of urination, which required urethral catheterization in the past. Denies any nausea, vomiting, diarrhea. No chest pain. OBJECTIVE: GENERAL: Patient is awake, alert, coherent, oriented x3. VITAL SIGNS: Temperature of 98.1, pulse rate of 77, blood pressure is 100/27, respiratory rate of 20, saturation is 99% on room air. HEENT: Conjunctival pallor. Ears, nose and throat: No erythema is noted. No nasal discharge. No ear discharge. CHEST AND LUNGS: No wheezing and no rhonchi. No coarse crackles noted. CARDIOVASCULAR: S1, S2 distinct. Normal rate, regular rhythm. ABDOMEN: Flabby. Positive bowel sounds. Slightly tender. EXTREMITIES: No joint tenderness noted. LABORATORY DATA: CBC done today showed white count of 11.2 from 19.6 yesterday. Hemoglobin is 10.5, hematocrit 30.7, platelet count is 216,000. Chemistry done today showed sodium of 139.4, potassium of 3.6, chloride 104, carbon dioxide or CO2 is 24, BUN is 14, creatinine 0.9. Glucose is 90 and calcium is 8.4. ASSESSMENT: 1. PNEUMONIA, LEFT LUNG BASE. Appears to be improving. 2. COPD/ASTHMA, currently stable and not in acute exacerbation. PLAN AND RECOMMENDATIONS: 1. Patient may be able to go home on Levaquin 500 mg once daily for the next 10 days. 2. Continue the Advair 500 mcg inhaler 1 puff b.i.d. and Spiriva inhaler 1 capsule daily. 3. Patient is complaining of urinary retention, which has to be addressed by the surgeons prior to discharge. 4. Recommend pulmonary clinic followup in 2 weeks following hospital discharge. 5. Home oxygen therapy evaluation at room air. If patient desaturates to less than 88% at room air while ambulating, patient may require oxygen therapy 2 liters during exercise and during sleep. 6. If you have any questions, please feel free to call me. Will sign off tonight. DICTATING PHYSICIAN: RUFINO GARZA MD,SUSIE,MPH [id number] PHY#: [id number] ID: [id number] JOB#: [id number] ACCT: [id number] cc: > MTDD
[2017-04-25] MEDS ORDERED: ATORVASTATIN CALCIUM 20 MG TABLET PO SCH (22:00)
[2017-04-25] MEDS: INSULIN DETEMIR 100 UNIT/ML 3 ML PEN SUBCUT SCH (22:53)
[2017-04-26] MEDS: PIPERACILLIN SODIUM/TAZOBACTAM 3.375 GM in NORMAL SALINE 100 ML IV SCH ×3 (03:41→14:45)
[2017-04-26] MEDS: GABAPENTIN 400 MG CAPSULE PO SCH ×2 (05:32→13:46)
[2017-04-26] MEDS: KETOROLAC TROMETHAMINE 10 MG TABLET PO SCH ×2 (05:32→11:57)
[2017-04-26] MEDS: LANSOPRAZOLE 30 MG TAB.RAP.DR PO SCH (05:33)
--- NOTE | 2017-04-26 08:09 | PDOC CONSULTATION ---
Consultation Consult Date: 04/26/17 Attending physician:: RHONDA KIMBALL Consult reason:: Urinary retention History of Present Illness Admission Date/PCP: 04/21/17 05:20 TOÑA MCLEAN MD Patient complains of: Inability to void, failed multiple voiding trials History of Present Illness: DARCY NAVA is a 71 year old female s/p colostomy reversal with Dr. Mendez. She was noted to have poor UOP post- op despite multiple fluid boluses and wilson was placed w/ > 1L. Catheter was removed the following day and pt has required I&O cath TID for volumes ~1400 cc since. Denies dysuria. Denies hematuria. Has a delayed sensation of filling. Has had this previously with colostomy. She required an indwelling wilson catheter upon dismissal to rehab and it was removed within a few days. She has not reported any retention symptoms since that surgery. She is currently being evaluated by Nephrology for right renal dysfunction. Past Medical History Medical History: Other - urinary retention Cardiac Medical History: Reports: DVT, Hypertension - ON MEDS Denies: Atrial Fibrillation, Congestive Heart Failure, Coronary Artery Disease, Myocardial Infarction, Hyperlipidema, Peripheral Vascular Disease, Pulmonary Embolism, Heart Murmur Pulmonary Medical History: Reports: Bronchitis, Chronic Obstructive Pulmonary Disease (COPD) - USES NEB AND INHALER, Pneumonia - 2 YRS AGO Denies: Asthma, Respiratory Failure, Sleep Apnea, Tuberculosis Neurological Medical History: Denies: Seizures Endocrine Medical History: Reports: Diabetes Mellitus Type 2 Denies: Hyperthyroidism, Hypothyroidism Renal/ Medical History: Reports: End Stage Renal Disease - Stage 3- NO DIALYSIS Malignancy Medical History: Reports: Ovarian Cancer - PRE-CANCEROUS, TOTAL HYST , QUINN SALPINGOOPHORECTOMY Denies: Breast Cancer, Cervical Cancer, Leukemia, Lung Cancer GI Medical History: Reports: Hiatal Hernia Denies: Crohn's Disease, Gastroesophageal Reflux Disease Musculoskeltal Medical History: Reports: Arthritis Denies: Fibromyalgia Psychiatric Medical History: Reports: Depression Denies: Bipolar Disorder, Dementia, Post Traumatic Stress Disorder Hematology: Reports: Anemia Denies: Hemophilia, Sickle Cell Disease Infectious Medical History: Denies: HIV Past Surgical History Past Surgical History: Reports: Appendectomy, Hysterectomy, Orthopedic Surgery - left shoulder, Other - Recent history of extended right hemicolectomy with end ileostomy bag, rvsd Denies: Amputation, Section, Cholecystectomy, Colostomy, Coronary Artery Bypass Graft, Gastric Bypass Surgery, Herniorrhaphy, Mastectomy, Pacemaker, Tonsillectomy, Tubal Ligation Social History Smoking Status: Former Smoker Cigarettes Packs Per Day: 3 Frequency of Alcohol Use: Occasional Hx Recreational Drug Use: No Drugs: None Hx Prescription Drug Abuse: No - Advance Directive Resuscitation Status: Full Code Family History Family History: COPD, DM, Malignancy - Brother with throat cancer, Other - Father with tuberculosis Parental Family History Reviewed: No Children Family History Reviewed: No Sibling(s) Family History Reviewed.: No Medication/Allergy Home Medications: Albuterol Sulfate [Albuterol Sulfate 2.5mg/3 mL] 3 ml NEB Q6HP PRN 04/21/17 Albuterol Sulfate [Proair HFA Inhalation Aerosol 8.5 gm MDI] 1 puff IH Q4HP PRN 04/21/17 Aspirin [Ecotrin 81 mg EC Tablet] 81 mg PO DAILY 04/21/17 Biotin [Biotin 1 mg Tablet] 1 mg PO DAILY 04/21/17 Canagliflozin [Invokana] 300 mg PO DAILY 04/21/17 Duloxetine HCl [Cymbalta] 120 mg PO DAILY 04/21/17 Gabapentin [Neurontin] 1,200 mg PO Q8 04/21/17 Insulin Detemir [Levemir Flextouch] 55 unit SQ QHS 04/21/17 Linagliptin [Tradjenta] 5 mg PO DAILY 04/21/17 Losartan Potassium [Cozaar 100 mg Tablet] 100 mg PO DAILY 04/21/17 Metoprolol Succinate [Toprol XL 100 mg Tablet] 100 mg PO DAILY 04/21/17 Multivitamin [Tab-A-Trip (Multiple Vitamin) Tablet] 1 tab PO DAILY 04/21/17 Omeprazole 40 mg PO DAILY 04/21/17 Pioglitazone HCl [Actos] 30 mg PO QAM 04/21/17 Pitavastatin Calcium [Livalo] 4 mg PO QHS 04/21/17 Tiotropium Wilson [Spiriva Handihaler 5 Cap/Kit (18 Mcg/Cap)] 1 puff IH DAILY 04/21/17 Allergies/Adverse Reactions: propoxyphene [From Darvocet-N] Allergy (Verified 04/21/17 06:10) Delirium tapentadol [From Nucynta] Allergy (Verified 04/21/17 06:10) Delirium Review of Systems Constitutional: ABSENT: anorexia, fever(s), headache(s) Eyes: ABSENT: visual disturbances Ears: ABSENT: hearing changes Nose, Mouth, and Throat: ABSENT: headache(s) Cardiovascular: PRESENT: edema. ABSENT: chest pain Respiratory: ABSENT: cough Gastrointestinal: PRESENT: abdominal pain - expected post-op. ABSENT: nausea, vomiting Genitourinary: PRESENT: difficulty urinating Musculoskeletal: ABSENT: back pain Psychiatric: ABSENT: anxiety Endocrine: ABSENT: polydipsia Physical Exam Vital Signs: Temp Pulse Resp BP Pulse Ox 97.7 F 73 18 116/57 L 99 04/25/17 23:35 04/25/17 23:35 04/25/17 23:35 04/25/17 23:35 04/25/17 23:35 Intake & Output 04/25/17 04/26/17 04/27/17 06:59 06:59 06:59 Intake Total 2850 2544 Output Total 2650 3100 Balance 200 -556 Weight 117.6 kg 119.5 kg General appearance: PRESENT: no acute distress Head exam: PRESENT: atraumatic Eye exam: PRESENT: conjunctiva pink Ear exam: PRESENT: normal external ear exam Mouth exam: PRESENT: moist Neck exam: PRESENT: full ROM Respiratory exam: PRESENT: unlabored Cardiovascular exam: PRESENT: RRR Vascular exam: PRESENT: normal capillary refill GI/Abdominal exam: PRESENT: other - surgical dressing in place, abd appropriately tender Rectal exam: PRESENT: deferred Gentrourinary exam: PRESENT: indwelling catheter, other - urine clear Extremities exam: PRESENT: pedal edema, +2 edema Musculoskeletal exam: PRESENT: other - morbidly obese Neurological exam: PRESENT: alert, altered, awake Results Laboratory Results: 04/25/17 06:44 04/25/17 06:44 04/24/17 04/24/17 00:49 00:49 Creatine Kinase 46 CK-MB (CK-2) 0.68 Troponin I < 0.012 Impressions: Chest X-Ray 04/24/17 00:00 IMPRESSION: 1. Left basilar airspace opacity compatible with pneumonia. Assessment & Plan - Diagnosis (1) Urinary retention Is this a current diagnosis for this admission?: Yes Plan: Given her history of post-op retention and multiple failed voiding trials during this admission, the patient should be discharged with an indwelling wilson catheter x 2 weeks and follow up with [facility] for fill/pull voiding trial. - Time Medications reviewed and adjusted accordingly: Yes - ok to continue flomax on discharge Anticipated discharge: Home Within: within 48 hours Disposition: stable - Inpatient Certification Based on my medical assessment, after consideration of the patient's comorbidities, presenting symptoms, or acuity I expect that the services needed warrant INPATIENT care.: Yes I certify that my determination is in accordance with my understanding of Medicare's requirements for reasonable and necessary INPATIENT services [42 CFR 412.3e].: Yes Medical Necessity: Failure to Improve With Outpatient Therapy
[2017-04-26] MEDS: DULOXETINE HCL 30 MG CAPSULE.DR PO SCH (09:09)
[2017-04-26] MEDS: METOPROLOL SUCCINATE 50 MG TAB.SR.24H PO SCH (09:09)
[2017-04-26] MEDS: SITAGLIPTIN PHOSPHATE 50 MG TABLET PO SCH (09:10)
[2017-04-26] MEDS: LOSARTAN POTASSIUM 50 MG TABLET PO SCH (09:10)
[2017-04-26] MEDS: FLUTICASONE/SALMETEROL DISKUS 500-50 MCG/DOSE IH SCH (09:11)
[2017-04-26] MEDS: TIOTROPIUM BROMIDE DPI 5 CAP/KIT (18 MCG/CAP) IH SCH (09:11)
[2017-04-26] MEDS: MULTIVITAMIN TABLET PO SCH (09:11)
[2017-04-26] MEDS: PIOGLITAZONE HCL 30 MG TABLET PO SCH (09:20)
[2017-04-26] MEDS ORDERED: TAMSULOSIN HCL 0.4 MG CAP.SR.24H PO SCH (10:00)
[2017-04-26] MEDS ORDERED: ENOXAPARIN SODIUM INJ 40 MG/0.4 ML DISP.SYRIN SUBCUT SCH (10:00)
[2017-04-26] MEDS: ALBUTEROL SULFATE HFA (90 MCG/PUFF) 200 PUFF/8.5 GM MDI IH PRN (13:47)
[2017-04-26 15:10] VITALS: BP 100/77
--- NOTE | 2017-04-26 19:54 | PDOC DISCHARGE SUMMARY ---
General - Admit/Disc Date/PCP Admission Date/Primary Care Provider: 04/21/17 05:20 TOÑA MCLEAN MD Discharge Date: 04/26/17 - Discharge Diagnosis (1) Post-op bleeding Is this a current diagnosis for this admission?: Yes (5) Urinary retention Is this a current diagnosis for this admission?: Yes - Additional Information Resuscitation Status: Full Code Discharge Diet: As Tolerated, Diabetic Discharge Activity: No Lifting Over 10 Pounds, No Lifting/Push/Pulling, No tub bath, Walk Frequently Prescriptions: Fluticasone/Salmeterol [Advair 500-50 Diskus 14 Dose/Diskus] 1 inh IH Q12 #14 inhaler Tamsulosin HCl [Flomax 0.4 mg Cap.sr] 0.4 mg PO DAILY 14 Days cap.sr.24h Home Medications: Albuterol Sulfate [Albuterol Sulfate 2.5mg/3 mL] 3 ml NEB Q6HP PRN 04/21/17 Albuterol Sulfate [Proair HFA Inhalation Aerosol 8.5 gm MDI] 1 puff IH Q4HP PRN 04/21/17 Aspirin [Ecotrin 81 mg EC Tablet] 81 mg PO DAILY 04/21/17 Biotin [Biotin 1 mg Tablet] 1 mg PO DAILY 04/21/17 Canagliflozin [Invokana] 300 mg PO DAILY 04/21/17 Duloxetine HCl [Cymbalta] 120 mg PO DAILY 04/21/17 Gabapentin [Neurontin] 1,200 mg PO Q8 04/21/17 Insulin Detemir [Levemir Flextouch] 55 unit SQ QHS 04/21/17 Linagliptin [Tradjenta] 5 mg PO DAILY 04/21/17 Losartan Potassium [Cozaar 100 mg Tablet] 100 mg PO DAILY 04/21/17 Metoprolol Succinate [Toprol XL 100 mg Tablet] 100 mg PO DAILY 04/21/17 Multivitamin [Tab-A-Trip (Multiple Vitamin) Tablet] 1 tab PO DAILY 04/21/17 Omeprazole 40 mg PO DAILY 04/21/17 Pioglitazone HCl [Actos] 30 mg PO QAM 04/21/17 Pitavastatin Calcium [Livalo] 4 mg PO QHS 04/21/17 Tiotropium [place] [Spiriva Handihaler 5 Cap/Kit (18 Mcg/Cap)] 1 puff IH DAILY 04/21/17 Fluticasone/Salmeterol [Advair 500-50 Diskus 14 Dose/Diskus] 1 inh IH Q12 #14 inhaler 04/26/17 Tamsulosin HCl [Flomax 0.4 mg Cap.sr] 0.4 mg PO DAILY 14 Days cap.sr.24h History of Present Illness History of Present Illness: DARCY NAVA is a 71 year old female who was admitted post reversal of ileostomy. She had an extended right hemicolectomy with end ileostomy for clostridium difficile colitis with right colon perforation several months ago and was brought back for an ileostomy take-down. Hospital Course Hospital Course: She had an ileostomy takedown with ileotransverse anastomosis. She was commenced on clear liquids by postop day one which she tolerated and was eventually gradually advanced to a regular diet. She had issues with urinary retention, had the wilson removed twice and had to be re-inserted. She has a history of this problem and was seen by the urologist on consult who recommended she be discharged with a leg bag which she will have for 2 weeks, she was also prescribed Flomax. She had some rectal bleed mixed with small amount of stool on postop day 2 and this changed to stool with slight blood staining by postop day 3 before eventually becoming just stool without blood. She remained hemodynamically stable. She has a history of COPD and did have wheezing and minor breathing difficulties, was seen by the [facility] [employer] [facility] [employer] who thought she might have a pneumonia and commenced her on antibiotics. She was sent home on levaquin 500mg daily for 10 days on his recommendation. She is doing well at this time and is discharged to follow up at [facility]. Physical Exam Vital Signs: Temp Pulse Resp BP Pulse Ox 97.7 F 76 18 100/77 94 04/26/17 15:07 04/26/17 15:07 04/26/17 15:07 04/26/17 15:07 04/26/17 15:07 Intake & Output 04/25/17 04/26/17 04/27/17 06:59 06:59 06:59 Intake Total 2850 2544 Output Total 2650 3100 Balance 200 -556 Weight 117.6 kg 119.5 kg General appearance: PRESENT: no acute distress, well-developed, well-nourished Head exam: PRESENT: atraumatic, normocephalic Ear exam: PRESENT: normal external ear exam Neck exam: ABSENT: carotid bruit, JVD, lymphadenopathy, thyromegaly Respiratory exam: PRESENT: unlabored, other - slight wheezing Cardiovascular exam: PRESENT: RRR. ABSENT: diastolic murmur, rubs, systolic murmur GI/Abdominal exam: PRESENT: other - midline and RLQ incisions are clean, dry, intact Gentrourinary exam: PRESENT: indwelling catheter Neurological exam: PRESENT: alert, awake, oriented to person, oriented to place , oriented to time, oriented to situation, CN II-XII grossly intact. ABSENT: motor sensory deficit Results Laboratory Results: 04/25/17 06:44 04/25/17 06:44 04/24/17 04:40 Sputum Gram Stain - Final 04/24/17 04:40 Sputum Sputum Culture - Final Staphylococcus Aureus Normal Lillie Absent 04/24/17 04/24/17 00:49 00:49 Creatine Kinase 46 CK-MB (CK-2) 0.68 Troponin I < 0.012 Impressions: Chest X-Ray 04/24/17 00:00 IMPRESSION: 1. Left basilar airspace opacity compatible with pneumonia. Plan Discharge Plan: discharge home Time Spent: Less than 30 Minutes
== END 2017-04-26 16:20 | disposition home health service (06) | DRG 329 ==
LOC: INOR 05:20 → 5 12:24
PROVIDERS: ADMIT Surgery; ATTEND Surgery
PROC: 0DNU0ZZ Release Omentum, Open Approach (ICD-10-PCS; 2017-04-21)
PROC: 0DNL0ZZ Release Transverse Colon, Open Approach (ICD-10-PCS; 2017-04-21)
PROC: 0DQB0ZZ Repair Ileum, Open Approach (ICD-10-PCS; principal; 2017-04-21 07:30)
PROC: 3E0F73Z Introduction of Anti-inflammatory into Respiratory Tract, Via Natural or Artificial Opening (ICD-10-PCS; 2017-04-23)
DX: Z43.2 Encounter for attention to ileostomy (principal); J18.9 Pneumonia, unspecified organism; J95.89 Other postprocedural complications and disorders of respiratory system, not elsewhere classified; K91.840 Postprocedural hemorrhage of a digestive system organ or structure following a digestive system procedure; R33.9 Retention of urine, unspecified; J44.9 Chronic obstructive pulmonary disease, unspecified; B95.61 Methicillin susceptible Staphylococcus aureus infection as the cause of diseases classified elsewhere; I10 Essential (primary) hypertension; E11.9 Type 2 diabetes mellitus without complications; E78.00 Pure hypercholesterolemia, unspecified; M19.90 Unspecified osteoarthritis, unspecified site; K44.9 Diaphragmatic hernia without obstruction or gangrene; F32.9 Major depressive disorder, single episode, unspecified; D64.9 Anemia, unspecified; I25.10 Atherosclerotic heart disease of native coronary artery without angina pectoris; E66.01 Morbid (severe) obesity due to excess calories; Z68.38 Body mass index [BMI] 38.0-38.9, adult; Z88.6 Allergy status to analgesic agent; Z91.041 Radiographic dye allergy status; Z87.891 Personal history of nicotine dependence; Z86.718 Personal history of other venous thrombosis and embolism; Z90.49 Acquired absence of other specified parts of digestive tract; Z90.710 Acquired absence of both cervix and uterus; Z79.82 Long term (current) use of aspirin; Z79.4 Long term (current) use of insulin; Z79.899 Other long term (current) drug therapy; Z83.6 Family history of other diseases of the respiratory system; Z83.3 Family history of diabetes mellitus; Z80.1 Family history of malignant neoplasm of trachea, bronchus and lung
CPT/HCPCS: 36415; 71045; 71046; 790; 80048; 80053; 82550; 82553; 82962; 84484; 85025; 85027; 87040; 87070; 87077; 87186; 87205; 93005; 93010; 94640; 94799; C9290; G0378; G0379; J0295; J0330; J1100; J1650; J1815; J1885; J1940; J2250; J2405; J2543; J2704; J2765; J3010; J3490; S0028

== ENCOUNTER 2017-05-05 08:56 | Emergency (ER) | payer MEDICARE, MEDICAID ==
[2017-05-05] MEDS ORDERED: HYDROCODONE/ACETAMINOPHEN 5-325 MG TABLET PO ONE (10:08)
--- NOTE | 2017-05-05 10:35 | RADIOLOGY REPORT (SQ) ---
EXAM DESCRIPTION: CT HEAD WITHOUT COMPLETED DATE/TIME: 05/05/2017 10:20 am REASON FOR STUDY: fall, pain COMPARISON: CT brain 05/22/2013, 05/25/2013, 02/05/2015, 08/27/2015 TECHNIQUE: Axial images acquired through the brain without intravenous contrast. Images reviewed wi th bone, brain and subdural windows. Images stored on PACS. All CT scanners at this facility use dose modulation, iterative reconstruction, and/or weight based d osing when appropriate to reduce radiation dose to as low as reasonably achievable (ALARA). [facility]: Dose Right [facility]: CareDose [facility]: Dose Right [facility]: Teradose 4D [facility]: [employer] RADIATION DOSE: CT Rad equipment meets quality standard of care and radiation dose reduction techniq ues were employed. CTDIvol: 64.6 mGy. DLP: 1163 mGy-cm. mGy. LIMITATIONS: Mild motion artifact FINDINGS: VENTRICLES: Normal size and contour. CEREBRUM: No masses. No hemorrhage. No midline shift. No evidence for acute infarction. Normal gra y/white matter differentiation. No areas of low density in the white matter. CEREBELLUM: No masses. No hemorrhage. No alteration of density. No evidence for acute infarction. EXTRAAXIAL SPACES: No fluid collections. No masses. ORBITS AND GLOBE: No intra- or extraconal masses. Normal contour of globe without masses. CALVARIUM: No fracture. PARANASAL SINUSES: No fluid or mucosal thickening. SOFT TISSUES: No mass or hematoma. OTHER: No other significant finding. IMPRESSION: NORMAL BRAIN CT WITHOUT CONTRAST. EVIDENCE OF ACUTE STROKE: NO. COMMENT: Quality ID # [id number]: Final reports with documentation of one or more dose reduction techniques (e.g., Automated exposure control, adjustment of the mA and/or kV according to patient size, use of iterative reconstruction technique) TECHNICAL DOCUMENTATION: JOB ID: [id number] [employer]- All Rights Reserved
--- NOTE | 2017-05-05 10:39 | RADIOLOGY REPORT (SQ) ---
EXAM DESCRIPTION: CT CERVICAL SPINE WITHOUT COMPLETED DATE/TIME: 05/05/2017 10:22 am REASON FOR STUDY: fall, pain COMPARISON: CT cervical spine 05/22/2013 CT brain same date TECHNIQUE: Axial images acquired through the cervical spine without intravenous contrast. Images re viewed with lung, soft tissue and bone windows. Reconstructed coronal and sagittal MPR images review ed. Images stored on PACS. All CT scanners at this facility use dose modulation, iterative reconstruction, and/or weight based d osing when appropriate to reduce radiation dose to as low as reasonably achievable (ALARA). [facility]: Dose Right [facility]: CareDose [facility]: Dose Right [facility]: Teradose 4D [facility]: [employer] RADIATION DOSE: CT Rad equipment meets quality standard of care and radiation dose reduction techniq ues were employed. CTDIvol: 23.9 mGy. DLP: 490 mGy-cm. mGy. LIMITATIONS: None. FINDINGS: ALIGNMENT: Straightening of cervical curvature likely due to patient positioning MINERALIZATION: Normal. VERTEBRAL BODIES: No fractures or dislocation. DISCS: Disc space loss of height at C6-7 with mild anterior and posterior osteophyte formation no sig nificant central canal narrowing. Mild bilateral foraminal narrowing at this level. FACETS, LATERAL MASSES, POSTERIOR ELEMENTS: No acute fracture. Bilateral facet arthropathy from C2-3 through C6-7 HARDWARE: None in the spine. VISUALIZED RIBS: No fractures. LUNG APICES AND SOFT TISSUES: No significant or acute findings. OTHER: No other significant finding. IMPRESSION: No acute changes TECHNICAL DOCUMENTATION: JOB ID: [id number] Quality ID # [id number]: Final reports with documentation of one or more dose reduction techniques (e.g., Au tomated exposure control, adjustment of the mA and/or kV according to patient size, use of iterative reconstruction technique) 2010 [employer]- All Rights Reserved
--- NOTE | 2017-05-05 10:57 | RADIOLOGY REPORT (SQ) ---
EXAM DESCRIPTION: SHOULDER RIGHT 2 OR MORE VIEWS COMPLETED DATE/TIME: 05/05/2017 10:43 am REASON FOR STUDY: fall, pain COMPARISON: None. NUMBER OF VIEWS: Three views. TECHNIQUE: Internal rotation, external rotation, and Y view images acquired of the right shoulder. LIMITATIONS: None. FINDINGS: MINERALIZATION: Osteopenic BONES: On the Y-view, there is minimal cortical irregularity along the acromion near the AC joint. A hairline nondisplaced fracture through the acromion could be present. The right humerus, remainder of the scapula, clavicle, and right ribs are otherwise unremarkable. JOINTS: No glenohumeral dislocation or acromioclavicular joint widening VISUALIZED LUNGS AND RIBS: No pneumothorax. No rib fracture. SOFT TISSUES: No radiopaque foreign body. OTHER: No other significant finding. IMPRESSION: Question hairline nondisplaced fracture of the acromion No glenohumeral joint fracture or malalignment TECHNICAL DOCUMENTATION: JOB ID: [id number] [employer]- All Rights Reserved
--- NOTE | 2017-05-05 11:01 | ER Document Report ---
ED General - General Chief Complaint: Facial Injury Stated Complaint: FALL/BACK PAIN Time Seen by Provider: 05/05/17 09:54 Mode of Arrival: Medic Information source: Patient Notes: Patient is a 71-year-old female who presents to the ER via EMS from home after a fall on the way to the bathroom from her bed today. Patient has a history of multiple falls. Patient states that she thinks she tripped on something. She did not lose consciousness but did hit her head and is complaining of headache to the back of the head, neck pain and right shoulder pain. She denies any numbness or tingling. TRAVEL OUTSIDE OF THE [place] IN LAST 30 DAYS: No - Related Data Allergies/Adverse Reactions: propoxyphene [From Darvocet-N] Allergy (Verified 04/21/17 06:10) Delirium tapentadol [From Nucynta] Allergy (Verified 04/21/17 06:10) Delirium Past Medical History - General Information source: Patient - Social History Smoking Status: Former Smoker Chew tobacco use (# tins/day): No Drug Abuse: None Family History: COPD, DM, Malignancy - Brother with throat cancer, Other - Father with tuberculosis Patient has suicidal ideation: No Patient has homicidal ideation: No - Past Medical History Cardiac Medical History: Reports: Hx DVT, Hx Hypertension - ON MEDS Denies: Hx Atrial Fibrillation, Hx Congestive Heart Failure, Hx Coronary Artery Disease, Hx Heart Attack, Hx Hypercholesterolemia, Hx Peripheral Vascular Disease, Hx Pulmonary Embolism, Hx Heart Murmur Pulmonary Medical History: Reports: Hx Bronchitis, Hx COPD - USES NEB AND INHALER, Hx Pneumonia - 2 YRS AGO Denies: Hx Asthma, Hx Respiratory Failure, Hx Sleep Apnea, Hx Tuberculosis Neurological Medical History: Denies: Hx Cerebrovascular Accident, Hx Seizures Endocrine Medical History: Reports: Hx Diabetes Mellitus Type 2. Denies: Hx Graves' Disease, Hx Hyperthyroidism, Hx Hypothyroidism Renal/ Medical History: Reports: Hx End Stage Renal Disease - Stage 3- NO DIALYSIS. Denies: Hx Kidney Stones, Hx Ovarian Cysts, Hx Peritoneal Dialysis, Hx Pelvic Inflammatory Disease Malignancy Medical History: Reports: Hx Ovarian Cancer - PRE-CANCEROUS, TOTAL HYST, QUINN SALPINGOOPHORECTOMY. Denies: Hx Breast Cancer, Hx Cervical Cancer, Hx Leukemia, Hx Lung Cancer GI Medical History: Reports: Hx Hiatal Hernia. Denies: Hx Crohn's Disease, Hx Gastroesophageal Reflux Disease, Hx Irritable Bowel, Hx Liver Failure, Hx Pancreatitis, Hx Ulcer Musculoskeltal Medical History: Reports Hx Arthritis, Denies Hx Fibromyalgia, Denies Hx Multiple Sclerosis, Denies Hx Muscular Dystrophy Psychiatric Medical History: Reports: Hx Depression Denies: Hx Bipolar Disorder, Hx Dementia, Hx Post Traumatic Stress Disorder, Hx Schizophrenia Traumatic Medical History: Denies: Hx Fractures Infectious Medical History: Denies: Hx HIV Past Surgical History: Reports: Hx Abdominal Surgery, Hx Appendectomy, Hx Bowel Surgery - EX LAP, ILEOSTOMY, Hx Hysterectomy, Hx Kidney (Renal Surgery) - Right kidney, Hx Orthopedic Surgery - left shoulder, Other - Recent history of extended right hemicolectomy with end ileostomy bag, rvsd. Denies: Hx Section, Hx Cholecystectomy, Hx Colostomy, Hx Coronary Artery Bypass Graft, Hx Gastric Bypass Surgery, Hx Herniorrhaphy, Hx Mastectomy, Hx Pacemaker, Hx Tonsillectomy, Hx Tubal Ligation - Immunizations Immunizations up to date: Yes Hx Diphtheria, Pertussis, Tetanus Vaccination: Yes Hx Pneumococcal Vaccination: 05/27/13 Review of Systems - Review of Systems Constitutional: No symptoms reported EENT: No symptoms reported Cardiovascular: No symptoms reported Respiratory: No symptoms reported Gastrointestinal: No symptoms reported Genitourinary: No symptoms reported Female Genitourinary: No symptoms reported Musculoskeletal: See HPI Skin: No symptoms reported Hematologic/Lymphatic: No symptoms reported Neurological/Psychological: No symptoms reported Physical Exam - Vital signs Vitals: Resp BP Pulse Ox 21 H 124/78 96 05/05/17 09:08 05/05/17 09:08 05/05/17 09:08 - Notes Notes: PHYSICAL EXAMINATION: GENERAL: Chronically ill-appearing, obese, but in no acute distress. HEAD: Atraumatic, normocephalic. EYES: Pupils equal round and reactive to light, extraocular movements intact, sclera anicteric, conjunctiva are normal. NECK: Normal range of motion, supple without lymphadenopathy LUNGS: Mild expiratory wheezes, no rales or rhonchi. HEART: Regular rate and rhythm without murmurs ABDOMEN: Soft, no tenderness. No guarding, no rebound BACK: no vertebral tenderness, normal ROM GI/: no CVA tenderness EXTREMITIES: Tender to palpation over right anterior shoulder, limited range of motion secondary to pain in the right shoulder, no pitting edema. No cyanosis. NEUROLOGICAL: Cranial nerves grossly intact. Normal sensory/motor exams. PSYCH: Normal mood, normal affect. SKIN: Warm, Dry, normal turgor, no rashes or lesions noted Course - Re-evaluation Re-evalutation: 05/05/17 11:40 CT of the head and cervical spine negative for any acute pathology. Right shoulder x-ray reports a possible hairline fracture of the acromion but no other acute pathology. Patient placed in shoulder immobilizer here and sent home to follow-up with her primary care provider and orthopedics. - Vital Signs Vital signs: Temp Pulse Resp BP Pulse Ox 25 H 124/69 93 05/05/17 11:00 05/05/17 10:01 05/05/17 11:00 Discharge - Discharge Clinical Impression: Possible hairline fracture acromion Fall Qualifiers: Encounter type: initial encounter Qualified Code(s): W19.XXXA - Unspecified fall, initial encounter Condition: Stable Disposition: HOME, SELF-CARE Additional Instructions: Please see orthopedics. Return immediately for any new or worsening symptoms. Follow up with primary care provider, call tomorrow to make followup appointment. Referrals: TOÑA MCLEAN MD [Primary Care Provider] - Follow up as needed ELHAM SANTOYO MD [ACTIVE STAFF] - Follow up as needed
[2017-05-05 17:31] VITALS: BP 120/76
== END 2017-05-05 17:02 | disposition home or self-care (01) ==
LOC: ER 08:56
DX: M54.2 Cervicalgia (principal); R51 Headache; M25.511 Pain in right shoulder; W19.XXXA Unspecified fall, initial encounter; Y93.89 Activity, other specified; Y92.009 Unspecified place in unspecified non-institutional (private) residence as the place of occurrence of the external cause; I10 Essential (primary) hypertension; J44.9 Chronic obstructive pulmonary disease, unspecified; E11.9 Type 2 diabetes mellitus without complications; E66.9 Obesity, unspecified
CPT/HCPCS: 99284; 73030; 70450; 72125; L3650; A9270

== ENCOUNTER 2017-07-21 14:49 | Inpatient (IN) | payer MEDICARE, MEDICAID ==
[2017-07-21] MEDS ORDERED: METHYLPREDNISOLONE INJ 125 MG/2 ML SDV IV ONE (15:32)
[2017-07-21] MEDS ORDERED: IPRATROPIUM/ALBUTEROL 0.5-2.5 MG/3 ML AMPUL NEB ONE (15:32)
--- NOTE | 2017-07-21 15:36 | ER Document Report ---
ED Respiratory Problem - General Chief Complaint: Breathing Difficulty Stated Complaint: BREATHING DIFFICULTY Time Seen by Provider: 07/21/17 15:14 Notes: The patient is a 72-year-old female, past medical history COPD, presents with increased shortness of breath, wheezing and productive coughing for the past 6 hours. Her last COPD exacerbation was ~3 months ago when she was hospitalized. EMS provided her with 1 DuoNeb and 2 albuterol nebulizers with some relief of her wheezing. She denies fevers, hemoptysis, chest pain, leg swelling, nausea, vomiting, back pain, recent travel or abdominal pain. TRAVEL OUTSIDE OF THE [place] IN LAST 30 DAYS: No - Related Data Allergies/Adverse Reactions: propoxyphene [From Darvocet-N] Allergy (Verified 04/21/17 06:10) Delirium tapentadol [From Nucynta] Allergy (Verified 04/21/17 06:10) Delirium Past Medical History - General Information source: Patient - Social History Smoking Status: Former Smoker - Quit in 2011 Family History: COPD, DM, Malignancy - Brother with throat cancer, Other - Father with tuberculosis - Past Medical History Cardiac Medical History: Reports: Hx DVT, Hx Hypertension - ON MEDS Denies: Hx Atrial Fibrillation, Hx Congestive Heart Failure, Hx Coronary Artery Disease, Hx Heart Attack, Hx Hypercholesterolemia, Hx Peripheral Vascular Disease, Hx Pulmonary Embolism, Hx Heart Murmur Pulmonary Medical History: Reports: Hx Bronchitis, Hx COPD - USES NEB AND INHALER, Hx Pneumonia - 2 YRS AGO Denies: Hx Asthma, Hx Respiratory Failure, Hx Sleep Apnea, Hx Tuberculosis Neurological Medical History: Denies: Hx Cerebrovascular Accident, Hx Seizures Endocrine Medical History: Reports: Hx Diabetes Mellitus Type 2. Denies: Hx Graves' Disease, Hx Hyperthyroidism, Hx Hypothyroidism Renal/ Medical History: Reports: Hx End Stage Renal Disease - Stage 3- NO DIALYSIS. Denies: Hx Kidney Stones, Hx Ovarian Cysts, Hx Peritoneal Dialysis, Hx Pelvic Inflammatory Disease Malignancy Medical History: Reports: Hx Ovarian Cancer - PRE-CANCEROUS, TOTAL HYST, QUINN SALPINGOOPHORECTOMY. Denies: Hx Breast Cancer, Hx Cervical Cancer, Hx Leukemia, Hx Lung Cancer GI Medical History: Reports: Hx Hiatal Hernia. Denies: Hx Crohn's Disease, Hx Gastroesophageal Reflux Disease, Hx Irritable Bowel, Hx Liver Failure, Hx Pancreatitis, Hx Ulcer Musculoskeltal Medical History: Reports Hx Arthritis, Denies Hx Fibromyalgia, Denies Hx Multiple Sclerosis, Denies Hx Muscular Dystrophy Psychiatric Medical History: Reports: Hx Depression Denies: Hx Bipolar Disorder, Hx Dementia, Hx Post Traumatic Stress Disorder, Hx Schizophrenia Traumatic Medical History: Denies: Hx Fractures Infectious Medical History: Denies: Hx HIV Past Surgical History: Reports: Hx Abdominal Surgery, Hx Appendectomy, Hx Bowel Surgery - EX LAP, ILEOSTOMY, Hx Hysterectomy, Hx Kidney (Renal Surgery) - Right kidney, Hx Orthopedic Surgery - left shoulder, Other - Recent history of extended right hemicolectomy with end ileostomy bag, rvsd. Denies: Hx Section, Hx Cholecystectomy, Hx Colostomy, Hx Coronary Artery Bypass Graft, Hx Gastric Bypass Surgery, Hx Herniorrhaphy, Hx Mastectomy, Hx Pacemaker, Hx Tonsillectomy, Hx Tubal Ligation - Immunizations Immunizations up to date: Yes Hx Diphtheria, Pertussis, Tetanus Vaccination: Yes Hx Pneumococcal Vaccination: 05/27/13 Review of Systems - Review of Systems Notes: REVIEW OF SYSTEMS: CONSTITUTIONAL: -fevers, -chills EENT: -eye pain, -difficulty swallowing, -nasal congestion CARDIOVASCULAR: -chest pain, -syncope. RESPIRATORY: +cough, +SOB GASTROINTESTINAL: -abdominal pain, -nausea, -vomiting, -diarrhea GENITOURINARY: -dysuria, -hematuria MUSCULOSKELETAL: -back pain, -neck pain SKIN: -rash or skin lesions. HEMATOLOGIC: -easy bruising or bleeding. LYMPHATIC: -swollen, enlarged glands. NEUROLOGICAL: -altered mental status or loss of consciousness, -headache, - neurologic symptoms PSYCHIATRIC: -anxiety, -depression. ALL OTHER SYSTEMS REVIEWED AND NEGATIVE. Physical Exam - Notes Notes: PHYSICAL EXAMINATION: GENERAL: Well-appearing, well-nourished and in no acute distress. HEAD: Atraumatic, normocephalic. EYES: Pupils equal round and reactive to light, extraocular movements intact, sclera anicteric, conjunctiva are normal. ENT: nares patent, oropharynx clear without exudates. Moist mucous membranes. NECK: Normal range of motion, supple without lymphadenopathy LUNGS: Diffuse wheezing and rhonchi. Crackles in LLL. Mild tachypnea. Speaking in full sentences. HEART: Regular rate and rhythm without murmurs ABDOMEN: Soft, nontender, normoactive bowel sounds. No guarding, no rebound. No masses appreciated. EXTREMITIES: Normal range of motion, no pitting or edema. No cyanosis. NEUROLOGICAL: Cranial nerves grossly intact. Normal speech. Normal sensory and motor exams. PSYCH: Normal mood, normal affect. SKIN: Warm, Dry, normal turgor, no rashes or lesions noted. Course - Re-evaluation Re-evalutation: Patient arrives with productive cough and wheezing. X-ray shows a possible left lower lobe pneumonia, which is consistent with crackles on physical exam. Her venous blood gas is consistent with an acute respiratory acidosis. Patient placed on BiPAP to help with CO2 exchange. Will treat her for CAP as her last hospitalization was 3 months ago and she lives at home. Her PMD is Dr. Mclean. 07/21/17 16:[address] Mclean and he has accepted patient to the ICU for further evaluation treatment. - Laboratory Result Diagrams: 07/21/17 15:48 07/21/17 15:48 Laboratory results interpreted by me: 07/21/17 07/21/17 07/21/17 15:48 15:48 15:48 RDW 14.8 H VBG pH 7.24 L VBG pCO2 77.9 H* VBG HCO3 32.6 H Potassium 3.3 L Chloride 96 L Carbon Dioxide 31 H Est GFR (Non-Af Amer) 58 L Glucose 327 H Creatine Kinase 22 L - Diagnostic Test Radiology reviewed: Image reviewed, Reports reviewed Radiology results interpreted by me: CXR: possible early left lower lobe pneumonia - EKG Interpretation by Me EKG shows normal: Sinus rhythm, [place], QRS Complexes, ST-T Waves [place]/QRS: LAHB/LAFB When compared to previous EKG there are: No significant change Additional EKG results interpreted by me: QTc 498 Critical Care Note - Critical Care Note Total time excluding time spent on procedures (mins): 45 Discharge - Discharge Clinical Impression: COPD exacerbation, Acute hypercapnic respiratory failure Pneumonia Qualifiers: Pneumonia type: due to unspecified organism Laterality: left Lung location: lower lobe of lung Qualified Code(s): J18.1 - Lobar pneumonia, unspecified organism Condition: Stable Disposition: ADMITTED INPATIENT Admitting Provider: [facility] Admitted: ICU Referrals: TOÑA MCLEAN MD [Primary Care Provider] - Follow up as needed
[2017-07-21 16:03] LABS: VENOUS BLOOD BASE EXCESS 2.7 mmol/L; VENOUS BLOOD HCO3 32.6 mmol/L (20-32); VENOUS BLOOD PH 7.24 (7.30-7.42)
[2017-07-21 16:05] LABS: ABSOLUTE EOSINOPHILS # (AUTO) 0.2 10^3/uL (0.0-0.6); ABSOLUTE LYMPHOCYTES (AUTO) 2.1 10^3/uL (0.5-4.7); ABSOLUTE MONOCYTES (AUTO) 0.6 10^3/uL (0.1-1.4); ABSOLUTE NEUT (AUTO) 5.4 10^3/uL (1.7-8.2); BASOPHILS % (AUTO) 0.3 % (0-2); EOSINOPHILS % (AUTO) 2.2 % (0-6); HEMATOCRIT 42.1 % (36.0-47.0); HEMOGLOBIN 14.2 g/dL (12.0-15.5); LYMPHOCYTES % (AUTO) 25.6 % (13-45); MEAN CORPUSCULAR HEMOGLOBIN 32.9 pg (27.0-33.4); MEAN CORPUSCULAR HGB CONC 33.8 g/dL (32.0-36.0); MEAN CORPUSCULAR VOLUME 97 fl (80-97); PLATELET COUNT 255 10^3/uL (150-450); RED BLOOD COUNT 4.33 10^6/uL (3.72-5.28); RED CELL DISTRIBUTION WIDTH 14.8 % (11.5-14.0); SEGMENTED NEUTROPHILS % (AUTO) 64.9 % (42-78); TOTAL CELLS COUNTED % (AUTO) 100 %; WHITE BLOOD COUNT 8.4 10^3/uL (4.0-10.5)
--- NOTE | 2017-07-21 16:08 | RADIOLOGY REPORT (SQ) ---
EXAM DESCRIPTION: CHEST SINGLE VIEW COMPLETED DATE/TIME: 07/21/2017 3:44 pm REASON FOR STUDY: SOB COMPARISON: 04/24/2017. EXAM PARAMETERS: NUMBER OF VIEWS: One view. TECHNIQUE: Single frontal radiographic view of the chest acquired. RADIATION DOSE: NA LIMITATIONS: None. FINDINGS: LUNGS AND PLEURA: Subtle subsegmental increased density left lower lobe. MEDIASTINUM AND HILAR STRUCTURES: No masses. Contour normal. HEART AND VASCULAR STRUCTURES: Heart normal in size. Normal vasculature. BONES: No acute findings. HARDWARE: None in the chest. OTHER: No other significant finding. IMPRESSION: Atelectasis or early pneumonia left lower lobe. TECHNICAL DOCUMENTATION: JOB ID: [id number] [employer]- All Rights Reserved Reading location - IP/workstation name: [email or web address]
[2017-07-21] MEDS: MAGNESIUM SULFATE/D5W 1 GM/100 ML RTUPB IV SCH ×2 (16:11→16:57)
[2017-07-21] MEDS ORDERED: CEFTRIAXONE INJ 1000 MG VIAL IV ONE (16:14)
[2017-07-21] MEDS ORDERED: AZITHROMYCIN INJ 500 MG VIAL IV ONE (16:14)
[2017-07-21 16:19] LABS: VENOUS BLOOD PCO2 77.9 mmHg (35-63)
[2017-07-21 16:24] LABS: ALANINE AMINOTRANSFERASE 21 U/L (9-52); ALKALINE PHOSPHATASE 92 U/L (38-126); ANION GAP 17 (5-19); ASPARTATE AMINO TRANSFERASE 21 U/L (14-36); BILIRUBIN,DIRECT 0.4 mg/dL (0.0-0.4); BILIRUBIN,TOTAL 0.6 mg/dL (0.2-1.3); BLOOD UREA NITROGEN 17 mg/dL (7-20); CALCIUM 9.3 mg/dL (8.4-10.2); CARBON DIOXIDE 31 mmol/L (22-30); CHLORIDE 96 mmol/L (98-107); CREATINE KINASE 22 U/L (30-135); GLUCOSE 327 mg/dL (75-110); POTASSIUM 3.3 mmol/L (3.6-5.0); TOTAL PROTEIN 7.6 g/dL (6.3-8.2)
[2017-07-21] MEDS ORDERED: POTASSIUM CHLORIDE 10 MEQ TABLET.SA PO ONE (16:43)
[2017-07-21] MEDS ORDERED: IPRATROPIUM/ALBUTEROL 0.5-2.5 MG/3 ML AMPUL NEB PRN (18:18)
--- NOTE | 2017-07-21 18:21 | EKG REPORT ---
SEVERITY:- ABNORMAL ECG - SINUS RHYTHM LEFT ANTERIOR FASCICULAR BLOCK BORDERLINE PROLONGED QT INTERVAL : Confirmed by: Kevin Morales MD 21-Jul-2017 18:20:52
[2017-07-21] MEDS ORDERED: DEXTROSE 50%-WATER 25 GM/50 ML DISP.SYRIN IV PRN ×2 (18:25)
[2017-07-21] MEDS ORDERED: DEXTROSE 40% GEL 15 GM TUBE PO PRN ×2 (18:25)
[2017-07-21] MEDS ORDERED: GLUCAGON,HUMAN RECOMB 1 MG INJ IM PRN (18:25)
[2017-07-21 18:35] LABS: INTERNATIONAL RATION (INR) 0.92; PROTHROMBIN TIME 12.8 SEC (11.4-15.4)
[2017-07-21 18:36] LABS: PARTIAL THROMBOPLASTIN TIME 27.2 SEC (23.5-35.8)
[2017-07-21 18:54] LABS: LIPASE 149.2 U/L (23-300); PHOSPHORUS 5.2 mg/dL (2.5-4.5)
[2017-07-21] MEDS ORDERED: CEFTRIAXONE 1 GM/D5W RTU 1 GM/50 ML RTUPB IV SCH (19:00)
[2017-07-21 19:11] LABS: FREE T4 (FREE THYROXINE) 1.11 ng/dL (0.78-2.19)
[2017-07-21 19:25] LABS: THYROID STIMULATING HORMONE 4.13 uIU/mL (0.47-4.68)
[2017-07-21 19:28] LABS: CREATINE KINASE MB 0.56 ng/mL (<4.55)
[2017-07-21] MEDS ORDERED: ENOXAPARIN SODIUM INJ 40 MG/0.4 ML DISP.SYRIN SUBCUT ONE (19:30)
[2017-07-21 19:34] LABS: TROPONIN I < 0.012 ng/mL
[2017-07-21 20:38] LABS: APPEARANCE,URINE CLEAR; BILIRUBIN,URINE NEGATIVE (NEGATIVE); COLOR,URINE YELLOW; GLUCOSE, URINE >=500 mg/dL (NEGATIVE); KETONES,URINE NEGATIVE (NEGATIVE); LEUKOCYTE ESTERASE,URINE NEGATIVE (NEGATIVE); NITRITE,URINE NEGATIVE (NEGATIVE); PROTEIN,URINE NEGATIVE (NEGATIVE); URINE SPECIFIC GRAVITY 1.017; UROBILINOGEN,URINE NEGATIVE mg/dL (<2.0)
[2017-07-21 20:58] LABS: URINE AMPHETAMINES SCREEN NEGATIVE; URINE BARBITURATES SCREEN NEGATIVE; URINE BENZODIAZEPINES SCREEN NEGATIVE; URINE COCAINE SCREEN NEGATIVE; URINE MARIJUANA (THC) SCREEN NEGATIVE; URINE METHADONE SCREEN NEGATIVE; URINE PHENCYCLIDINE SCREEN NEGATIVE
[2017-07-21] MEDS ORDERED: (PENDING PHARMACY ID) (Canagliflozin [Invokana] 300 MG) PO SCH (21:30)
[2017-07-21] MEDS ORDERED: (PENDING PHARMACY ID) (Linagliptin [Tradjenta] 5 MG) PO SCH (21:30)
[2017-07-21] MEDS ORDERED: METOPROLOL SUCCINATE 50 MG TAB.SR.24H PO ONE (22:00)
[2017-07-21] MEDS ORDERED: METFORMIN HCL 500 MG TABLET PO ONE (22:00)
[2017-07-21] MEDS: DULOXETINE HCL 30 MG CAPSULE.DR PO SCH (22:59)
[2017-07-21] MEDS: INSULIN LISPRO 100 UNIT/ML 3 ML VIAL SUBCUT PRN (22:59)
[2017-07-21] MEDS: METHYLPREDNISOLONE INJ 125 MG/2 ML SDV IV SCH (22:59)
[2017-07-21] MEDS: GABAPENTIN 400 MG CAPSULE PO SCH (23:01)
[2017-07-21] MEDS: ACETAMINOPHEN WITH CODEINE #3 TABLET PO SCH (23:02)
[2017-07-21] MEDS: LEVOFLOXACIN 750 MG/D5W RTU 750 MG/150 ML RTUPB IV SCH (23:03)
[2017-07-21 23:18] LABS: ARTERIAL BLOOD BASE EXCESS 1.7 mmol/L; ARTERIAL BLOOD H2CO3 1.63 mmol/L (1.05-1.35); ARTERIAL BLOOD HCO3 28.5 mmol/L (20-26); ARTERIAL BLOOD O2 SATURATION 96.7 % (94-98); ARTERIAL BLOOD PH 7.34 (7.35-7.45); ARTERIAL BLOOD PO2 94.4 mmHg (80-100); ARTERIAL BLOOD TOTAL CO2 30.1 mmol/L (21-25)
[2017-07-21 23:19] LABS: ARTERIAL BLOOD FIO2 35%
[2017-07-22 01:18] LABS: CREATINE KINASE MB 0.48 ng/mL (<4.55)
[2017-07-22 01:22] LABS: TROPONIN I < 0.012 ng/mL
[2017-07-22] MEDS: METHYLPREDNISOLONE INJ 125 MG/2 ML SDV IV SCH ×3 (05:56→21:53)
[2017-07-22] MEDS: GABAPENTIN 400 MG CAPSULE PO SCH ×3 (05:57→21:53)
[2017-07-22] MEDS: LANSOPRAZOLE 30 MG TAB.RAP.DR PO SCH (05:57)
[2017-07-22] MEDS: ACETAMINOPHEN WITH CODEINE #3 TABLET PO SCH ×3 (05:58→21:52)
[2017-07-22 07:31] LABS: ABSOLUTE MONOCYTES (AUTO) 0.1 10^3/uL (0.1-1.4); ABSOLUTE NEUT (AUTO) 7.9 10^3/uL (1.7-8.2); BASOPHILS % (AUTO) 0.2 % (0-2); HEMATOCRIT 39.4 % (36.0-47.0); HEMOGLOBIN 13.2 g/dL (12.0-15.5); LYMPHOCYTES % (AUTO) 10.9 % (13-45); MEAN CORPUSCULAR HEMOGLOBIN 32.6 pg (27.0-33.4); MEAN CORPUSCULAR HGB CONC 33.6 g/dL (32.0-36.0); MEAN CORPUSCULAR VOLUME 97 fl (80-97); PLATELET COUNT 257 10^3/uL (150-450); RED BLOOD COUNT 4.05 10^6/uL (3.72-5.28); RED CELL DISTRIBUTION WIDTH 14.9 % (11.5-14.0); SEGMENTED NEUTROPHILS % (AUTO) 87.9 % (42-78); TOTAL CELLS COUNTED % (AUTO) 100 %
[2017-07-22 07:55] LABS: ALANINE AMINOTRANSFERASE 16 U/L (9-52); ALBUMIN 3.8 g/dL (3.5-5.0); ALKALINE PHOSPHATASE 86 U/L (38-126); ANION GAP 10 (5-19); ASPARTATE AMINO TRANSFERASE 22 U/L (14-36); BILIRUBIN,DIRECT 0.4 mg/dL (0.0-0.4); BILIRUBIN,TOTAL 0.5 mg/dL (0.2-1.3); BLOOD UREA NITROGEN 20 mg/dL (7-20); CALCIUM 9.3 mg/dL (8.4-10.2); CARBON DIOXIDE 30 mmol/L (22-30); CHLORIDE 101 mmol/L (98-107); CHOLESTEROL 128.99 mg/dL (0-200); GLUCOSE 223 mg/dL (75-110); SODIUM 141.2 mmol/L (137-145); TOTAL PROTEIN 7.6 g/dL (6.3-8.2); TRIGLYCERIDES 48 mg/dL (<150)
[2017-07-22 08:05] LABS: DIRECT LDL 63 mg/dL (<100)
[2017-07-22 08:06] LABS: CREATINE KINASE MB 0.43 ng/mL (<4.55)
[2017-07-22 08:07] LABS: CREATINE KINASE < 20 U/L (30-135); TROPONIN I < 0.012 ng/mL
[2017-07-22 08:21] LABS: POTASSIUM 5.1 mmol/L (3.6-5.0)
[2017-07-22] MEDS: INSULIN LISPRO 100 UNIT/ML 3 ML VIAL SUBCUT PRN ×4 (08:30→22:02)
[2017-07-22] MEDS: DULOXETINE HCL 30 MG CAPSULE.DR PO SCH ×2 (09:34→21:52)
[2017-07-22] MEDS: METFORMIN HCL 500 MG TABLET PO SCH ×2 (09:35→17:55)
[2017-07-22] MEDS: METOPROLOL SUCCINATE 50 MG TAB.SR.24H PO SCH (09:35)
[2017-07-22] MEDS: SITAGLIPTIN PHOSPHATE 50 MG TABLET PO SCH (09:35)
[2017-07-22] MEDS: ENOXAPARIN SODIUM INJ 40 MG/0.4 ML DISP.SYRIN SUBCUT SCH (09:36)
[2017-07-22] MEDS: PIOGLITAZONE HCL 30 MG TABLET PO SCH (09:41)
[2017-07-22] MEDS: CEFTRIAXONE SODIUM 1,000 MG in DEXTROSE 5%-WATER 50 ML IV SCH (17:59)
--- NOTE | 2017-07-22 21:09 | PDOC H&P ---
History of Present Illness Admission Date/PCP: 07/21/17 17:27 TOÑA MCLEAN MD History of Present Illness: DARCY NAVA is a 72 year old female,She has a history of chronic obstructive pulmonary disease, she came to the emergency room for evaluation of respiratory distress, she was wheezing, she was using accessory muscle of respiration to breathe,. She requires noninvasive positive pressure ventilation in the emergency room, I saw her in the emergency room she was obviously in distress, she was started on intravenous Solu-Medrol in the ER before a bed was assigned on the floor. Patient is well-known to me she has multiple comorbid conditions including chronic obstructive lung disease, type 2 diabetes mellitus, history of colonic perforation. She will require intravenous Solu-Medrol, she is a very labile diabetic she would need close monitoring in the hospital setting because of the risk of excessive elevation of blood sugar, she may need insulin drip, because of all these reasons the patient is appropriate at this time for inpatient care Past Medical History Cardiac Medical History: Reports: DVT, Hypertension - ON MEDS Pulmonary Medical History: Reports: Bronchitis, Chronic Obstructive Pulmonary Disease (COPD) - USES NEB AND INHALER, Pneumonia - 2 YRS AGO Endocrine Medical History: Reports: Diabetes Mellitus Type 2 Renal/ Medical History: Reports: End Stage Renal Disease - Stage 3- NO DIALYSIS Malignancy Medical History: Reports: Ovarian Cancer - PRE-CANCEROUS, TOTAL HYST , QUINN SALPINGOOPHORECTOMY GI Medical History: Reports: Hiatal Hernia Musculoskeltal Medical History: Reports: Arthritis Psychiatric Medical History: Reports: Depression Hematology: Reports: Anemia Past Surgical History Past Surgical History: Reports: Appendectomy, Colostomy - History of colostomy revision , History of resection of the colon, Hysterectomy, Orthopedic Surgery - left shoulder, Other - Recent history of extended right hemicolectomy with end ileostomy bag, rvsd Social History Smoking Status: Former Smoker Cigarettes Packs Per Day: 3 Number of Years Smokin Last Time Smoked: 03/14/1999 Frequency of Alcohol Use: Rare Hx Recreational Drug Use: No Drugs: None Hx Prescription Drug Abuse: No Family History Family History: COPD, DM, Malignancy - Brother with throat cancer, Other - Father with tuberculosis Parental Family History Reviewed: Yes Children Family History Reviewed: Yes Sibling(s) Family History Reviewed.: Yes Medication/Allergy Home Medications: Acetaminophen with Codeine [Acetaminophen-Cod #3 Tablet] 1 tab PO Q8 07/21/17 Canagliflozin [Invokana] 300 mg PO DAILY 07/21/17 Duloxetine HCl [Cymbalta] 60 mg PO Q12 07/21/17 Gabapentin [Neurontin] 1,200 mg PO Q8 07/21/17 Linagliptin [Tradjenta] 5 mg PO DAILY 07/21/17 Metoprolol Succinate [Toprol XL 100 mg Tablet] 100 mg PO DAILY 07/21/17 Omeprazole 40 mg PO DAILY 07/21/17 Pioglitazone HCl [Actos] 30 mg PO QAM 07/21/17 Allergies/Adverse Reactions: propoxyphene [From Darvocet-N] Allergy (Verified 04/21/17 06:10) Delirium tapentadol [From Nucynta] Allergy (Verified 04/21/17 06:10) Delirium Review of Systems Constitutional: PRESENT: fatigue Eyes: ABSENT: visual disturbances Ears: ABSENT: hearing changes Cardiovascular: ABSENT: chest pain, dyspnea on exertion, edema, orthropnea, palpitations Respiratory: PRESENT: cough, dyspnea, sputum Gastrointestinal: ABSENT: abdominal pain, constipation, diarrhea, hematemesis, hematochezia, nausea, vomiting Genitourinary: ABSENT: dysuria, hematuria Musculoskeletal: ABSENT: joint swelling Integumentary: ABSENT: rash, wounds Neurological: ABSENT: abnormal gait, abnormal speech, confusion, dizziness, focal weakness, syncope Psychiatric: ABSENT: anxiety, depression, homidical ideation, suicidal ideation Endocrine: ABSENT: cold intolerance, heat intolerance, menstrual abnormalities, polydipsia, polyuria Hematologic/Lymphatic: ABSENT: easy bleeding, easy bruising, lymphadenopathy Physical Exam Vital Signs: Temp Pulse Resp BP Pulse Ox 98.4 F 77 16 125/75 98 07/22/17 19:34 07/22/17 19:34 07/22/17 19:34 07/22/17 19:34 07/22/17 19:34 Intake & Output 07/21/17 07/22/17 07/23/17 06:59 06:59 06:59 Intake Total 535 827 Balance 535 827 Weight 108.3 kg General appearance: PRESENT: severe distress Head exam: PRESENT: atraumatic, normocephalic Eye exam: PRESENT: conjunctiva pink, EOMI, PERRLA Ear exam: PRESENT: normal external ear exam Mouth exam: PRESENT: moist, tongue midline Neck exam: PRESENT: full ROM Respiratory exam: PRESENT: accessory muscle use, wheezes Cardiovascular exam: PRESENT: RRR, +S1, +S2 Vascular exam: PRESENT: normal capillary refill GI/Abdominal exam: PRESENT: normal bowel sounds, soft Rectal exam: PRESENT: deferred Neurological exam: PRESENT: alert Psychiatric exam: PRESENT: appropriate affect, normal mood Skin exam: PRESENT: dry, intact, warm Results Laboratory Results: 07/22/17 07:10 07/22/17 07:10 07/21/17 07/22/17 07/22/17 22:50 07:10 07:10 WBC 9.0 RBC 4.05 Hgb 13.2 Hct 39.4 MCV 97 MCH 32.6 MCHC 33.6 RDW 14.9 H Plt Count 257 Seg Neutrophils % 87.9 H Lymphocytes % 10.9 L Monocytes % 1.0 L Eosinophils % 0.0 Basophils % 0.2 Absolute Neutrophils 7.9 Absolute Lymphocytes 1.0 Absolute Monocytes 0.1 Absolute Eosinophils 0.0 Absolute Basophils 0.0 Carbonic Acid 1.63 H HCO3/H2CO3 Ratio 17:1 ABG pH 7.34 L ABG pCO2 54.0 H ABG pO2 94.4 ABG HCO3 28.5 H ABG O2 Saturation 96.7 ABG Base Excess 1.7 FiO2 35% Sodium 141.2 Potassium 5.1 H D Chloride 101 Carbon Dioxide 30 Anion Gap 10 BUN 20 Creatinine 0.97 Est GFR ( Amer) > 60 Est GFR (Non-Af Amer) 56 L Glucose 223 H Calcium 9.3 Total Bilirubin 0.5 AST 22 ALT 16 Alkaline Phosphatase 86 Total Protein 7.6 Albumin 3.8 Triglycerides 48 Cholesterol 128.99 LDL Cholesterol Direct 63 VLDL Cholesterol 10.0 HDL Cholesterol 52 07/21/17 07/21/17 07/22/17 18:40 18:40 00:32 Creatine Kinase 20 L 20 L CK-MB (CK-2) 0.56 Troponin I < 0.012 07/22/17 07/22/17 07/22/17 00:32 07:10 07:10 Creatine Kinase < 20 L CK-MB (CK-2) 0.48 0.43 Troponin I < 0.012 < 0.012 Impressions: Chest X-Ray 07/21/17 15:14 IMPRESSION: Atelectasis or early pneumonia left lower lobe. Assessment & Plan - Diagnosis (1) Acute hypercapnic respiratory failure Is this a current diagnosis for this admission?: Yes Plan: Continue BiPAP therapy (2) Chronic obstructive asthma with acute exacerbation Is this a current diagnosis for this admission?: Yes Plan: Start Solu-Medrol, bronchodilators (3) Diabetes mellitus type 2 in obese Is this a current diagnosis for this admission?: Yes (4) Left lower lobe pneumonia Qualifiers: Pneumonia type: due to unspecified organism Qualified Code(s): J18.1 - Lobar pneumonia, unspecified organism Is this a current diagnosis for this admission?: Yes Plan: Treat with antibiotic
--- NOTE | 2017-07-22 21:15 | PDOC PROGRESS REPORT ---
Subjective Progress Note for:: 07/22/17 Subjective:: Patient was seen by the bedside, she continues to require noninvasive positive pressure ventilation, BiPAP Reason For Visit: ACUTE HYPERCAPNIC RESPIRATORY FAILURE,ACUTE COPD Physical Exam Vital Signs: Temp Pulse Resp BP Pulse Ox 98.4 F 77 16 125/75 98 07/22/17 19:34 07/22/17 19:34 07/22/17 19:34 07/22/17 19:34 07/22/17 19:34 Intake & Output 07/21/17 07/22/17 07/23/17 06:59 06:59 06:59 Intake Total 535 827 Balance 535 827 Weight 108.3 kg General appearance: PRESENT: obese Respiratory exam: PRESENT: accessory muscle use, wheezes Cardiovascular exam: PRESENT: +S1, +S2 GI/Abdominal exam: PRESENT: soft Neurological exam: PRESENT: alert Results Laboratory Results: 07/22/17 07:10 07/22/17 07:10 07/21/17 07/22/17 07/22/17 22:50 07:10 07:10 WBC 9.0 RBC 4.05 Hgb 13.2 Hct 39.4 MCV 97 MCH 32.6 MCHC 33.6 RDW 14.9 H Plt Count 257 Seg Neutrophils % 87.9 H Lymphocytes % 10.9 L Monocytes % 1.0 L Eosinophils % 0.0 Basophils % 0.2 Absolute Neutrophils 7.9 Absolute Lymphocytes 1.0 Absolute Monocytes 0.1 Absolute Eosinophils 0.0 Absolute Basophils 0.0 Carbonic Acid 1.63 H HCO3/H2CO3 Ratio 17:1 ABG pH 7.34 L ABG pCO2 54.0 H ABG pO2 94.4 ABG HCO3 28.5 H ABG O2 Saturation 96.7 ABG Base Excess 1.7 FiO2 35% Sodium 141.2 Potassium 5.1 H D Chloride 101 Carbon Dioxide 30 Anion Gap 10 BUN 20 Creatinine 0.97 Est GFR ( Amer) > 60 Est GFR (Non-Af Amer) 56 L Glucose 223 H Calcium 9.3 Total Bilirubin 0.5 AST 22 ALT 16 Alkaline Phosphatase 86 Total Protein 7.6 Albumin 3.8 Triglycerides 48 Cholesterol 128.99 LDL Cholesterol Direct 63 VLDL Cholesterol 10.0 HDL Cholesterol 52 07/21/17 07/21/17 07/22/17 18:40 18:40 00:32 Creatine Kinase 20 L 20 L CK-MB (CK-2) 0.56 Troponin I < 0.012 07/22/17 07/22/17 07/22/17 00:32 07:10 07:10 Creatine Kinase < 20 L CK-MB (CK-2) 0.48 0.43 Troponin I < 0.012 < 0.012 Impressions: Chest X-Ray 07/21/17 15:14 IMPRESSION: Atelectasis or early pneumonia left lower lobe. Assessment & Plan - Diagnosis (1) Acute hypercapnic respiratory failure Is this a current diagnosis for this admission?: Yes Plan: Continue BiPAP (2) Chronic obstructive pulmonary disease with acute exacerbation Is this a current diagnosis for this admission?: Yes Plan: Continue continue Solu-Medrol, bronchodilators (3) Diabetes mellitus type 2 in obese Is this a current diagnosis for this admission?: Yes (4) Left lower lobe pneumonia Qualifiers: Pneumonia type: due to unspecified organism Qualified Code(s): J18.1 - Lobar pneumonia, unspecified organism Is this a current diagnosis for this admission?: Yes
[2017-07-22] MEDS: LEVOFLOXACIN 750 MG/D5W RTU 750 MG/150 ML RTUPB IV SCH (21:53)
[2017-07-23 05:05] LABS: ABSOLUTE LYMPHOCYTES (AUTO) 1.1 10^3/uL (0.5-4.7); ABSOLUTE MONOCYTES (AUTO) 0.4 10^3/uL (0.1-1.4); ABSOLUTE NEUT (AUTO) 15.1 10^3/uL (1.7-8.2); BASOPHILS % (AUTO) 0.2 % (0-2); HEMATOCRIT 39.9 % (36.0-47.0); HEMOGLOBIN 13.4 g/dL (12.0-15.5); LYMPHOCYTES % (AUTO) 6.9 % (13-45); MEAN CORPUSCULAR HGB CONC 33.4 g/dL (32.0-36.0); MEAN CORPUSCULAR VOLUME 96 fl (80-97); MONOCYTES % (AUTO) 2.3 % (3-13); PLATELET COUNT 235 10^3/uL (150-450); RED BLOOD COUNT 4.17 10^6/uL (3.72-5.28); RED CELL DISTRIBUTION WIDTH 14.6 % (11.5-14.0); SEGMENTED NEUTROPHILS % (AUTO) 90.6 % (42-78); TOTAL CELLS COUNTED % (AUTO) 100 %; WHITE BLOOD COUNT 16.7 10^3/uL (4.0-10.5)
[2017-07-23] MEDS: ACETAMINOPHEN WITH CODEINE #3 TABLET PO SCH ×3 (05:12→21:51)
[2017-07-23] MEDS: LANSOPRAZOLE 30 MG TAB.RAP.DR PO SCH (05:12)
[2017-07-23] MEDS: GABAPENTIN 400 MG CAPSULE PO SCH ×3 (05:12→21:51)
[2017-07-23] MEDS: METHYLPREDNISOLONE INJ 125 MG/2 ML SDV IV SCH ×3 (05:15→21:52)
[2017-07-23 05:36] LABS: ALANINE AMINOTRANSFERASE 24 U/L (9-52); ALBUMIN 3.6 g/dL (3.5-5.0); ALKALINE PHOSPHATASE 85 U/L (38-126); ANION GAP 12 (5-19); ASPARTATE AMINO TRANSFERASE 46 U/L (14-36); BILIRUBIN,DIRECT 0.3 mg/dL (0.0-0.4); BILIRUBIN,TOTAL 0.3 mg/dL (0.2-1.3); BLOOD UREA NITROGEN 36 mg/dL (7-20); CALCIUM 9.2 mg/dL (8.4-10.2); CARBON DIOXIDE 30 mmol/L (22-30); CHLORIDE 100 mmol/L (98-107); GLUCOSE 277 mg/dL (75-110); SODIUM 141.5 mmol/L (137-145); TOTAL PROTEIN 7.4 g/dL (6.3-8.2)
[2017-07-23] MEDS: INSULIN LISPRO 100 UNIT/ML 3 ML VIAL SUBCUT PRN ×4 (08:17→21:52)
[2017-07-23] MEDS: PIOGLITAZONE HCL 30 MG TABLET PO SCH (08:17)
[2017-07-23] MEDS: METFORMIN HCL 500 MG TABLET PO SCH ×2 (08:18→16:13)
[2017-07-23] MEDS: SITAGLIPTIN PHOSPHATE 50 MG TABLET PO SCH (10:46)
[2017-07-23] MEDS: ENOXAPARIN SODIUM INJ 40 MG/0.4 ML DISP.SYRIN SUBCUT SCH (10:46)
[2017-07-23] MEDS: DULOXETINE HCL 30 MG CAPSULE.DR PO SCH ×2 (10:47→21:51)
[2017-07-23] MEDS: METOPROLOL SUCCINATE 50 MG TAB.SR.24H PO SCH (10:47)
[2017-07-23] MEDS: CEFTRIAXONE SODIUM 1,000 MG in DEXTROSE 5%-WATER 50 ML IV SCH (18:31)
--- NOTE | 2017-07-23 20:54 | PDOC PROGRESS REPORT ---
Subjective Progress Note for:: 07/23/17 Subjective:: Patient is seen by the bedside continues to require BiPAP,She is still on the IV Solu-Medrol Reason For Visit: ACUTE HYPERCAPNIC RESPIRATORY FAILURE,ACUTE COPD Physical Exam Vital Signs: Temp Pulse Resp BP Pulse Ox 97.7 F 75 18 105/65 99 07/23/17 11:26 07/23/17 14:00 07/23/17 11:26 07/23/17 11:26 07/23/17 11:26 Intake & Output 07/22/17 07/23/17 07/24/17 06:59 06:59 06:59 Intake Total 535 2613 895 Balance 535 2613 895 Weight 108.3 kg 109.5 kg General appearance: PRESENT: mild distress Head exam: PRESENT: atraumatic, normocephalic Eye exam: PRESENT: PERRLA. ABSENT: scleral icterus Mouth exam: PRESENT: moist, tongue midline Neck exam: PRESENT: full ROM Respiratory exam: PRESENT: wheezes Cardiovascular exam: PRESENT: RRR, +S1, +S2 Vascular exam: PRESENT: normal capillary refill GI/Abdominal exam: PRESENT: normal bowel sounds, soft Rectal exam: PRESENT: deferred Neurological exam: PRESENT: alert, awake, oriented to person, oriented to place , oriented to time, oriented to situation, CN II-XII grossly intact Psychiatric exam: PRESENT: appropriate affect, normal mood Skin exam: PRESENT: dry, intact, warm. ABSENT: cyanosis, rash Results Laboratory Results: 07/23/17 04:35 07/23/17 04:35 07/23/17 07/23/17 04:35 04:35 WBC 16.7 H RBC 4.17 Hgb 13.4 Hct 39.9 MCV 96 MCH 32.0 MCHC 33.4 RDW 14.6 H Plt Count 235 Seg Neutrophils % 90.6 H Lymphocytes % 6.9 L Monocytes % 2.3 L Eosinophils % 0.0 Basophils % 0.2 Absolute Neutrophils 15.1 H Absolute Lymphocytes 1.1 Absolute Monocytes 0.4 Absolute Eosinophils 0.0 Absolute Basophils 0.0 Sodium 141.5 Potassium 5.0 Chloride 100 Carbon Dioxide 30 Anion Gap 12 BUN 36 H Creatinine 1.21 Est GFR ( Amer) 53 L Est GFR (Non-Af Amer) 44 L Glucose 277 H Calcium 9.2 Total Bilirubin 0.3 AST 46 H ALT 24 Alkaline Phosphatase 85 Total Protein 7.4 Albumin 3.6 07/21/17 07/21/17 07/22/17 18:40 18:40 00:32 Creatine Kinase 20 L 20 L CK-MB (CK-2) 0.56 Troponin I < 0.012 07/22/17 07/22/17 07/22/17 00:32 07:10 07:10 Creatine Kinase < 20 L CK-MB (CK-2) 0.48 0.43 Troponin I < 0.012 < 0.012 Impressions: Chest X-Ray 07/21/17 15:14 IMPRESSION: Atelectasis or early pneumonia left lower lobe. Assessment & Plan - Diagnosis (1) Acute hypercapnic respiratory failure Is this a current diagnosis for this admission?: Yes (2) Chronic obstructive pulmonary disease with acute exacerbation Is this a current diagnosis for this admission?: Yes (3) Diabetes mellitus type 2 in obese Is this a current diagnosis for this admission?: Yes (4) Left lower lobe pneumonia Qualifiers: Pneumonia type: due to unspecified organism Qualified Code(s): J18.1 - Lobar pneumonia, unspecified organism Is this a current diagnosis for this admission?: Yes - Plan Summary Plan Summary: Continue IV antibiotic continue IV Solu-Medrol
[2017-07-23] MEDS: LEVOFLOXACIN 750 MG TABLET PO SCH (21:52)
[2017-07-24 05:05] LABS: ABSOLUTE LYMPHOCYTES (AUTO) 0.9 10^3/uL (0.5-4.7); ABSOLUTE MONOCYTES (AUTO) 0.4 10^3/uL (0.1-1.4); ABSOLUTE NEUT (AUTO) 12.4 10^3/uL (1.7-8.2); BASOPHILS % (AUTO) 0.1 % (0-2); HEMATOCRIT 38.9 % (36.0-47.0); LYMPHOCYTES % (AUTO) 6.8 % (13-45); MEAN CORPUSCULAR HEMOGLOBIN 32.2 pg (27.0-33.4); MEAN CORPUSCULAR HGB CONC 33.5 g/dL (32.0-36.0); MEAN CORPUSCULAR VOLUME 96 fl (80-97); MONOCYTES % (AUTO) 2.8 % (3-13); PLATELET COUNT 243 10^3/uL (150-450); RED BLOOD COUNT 4.03 10^6/uL (3.72-5.28); RED CELL DISTRIBUTION WIDTH 14.7 % (11.5-14.0); SEGMENTED NEUTROPHILS % (AUTO) 90.3 % (42-78); TOTAL CELLS COUNTED % (AUTO) 100 %; WHITE BLOOD COUNT 13.8 10^3/uL (4.0-10.5)
[2017-07-24] MEDS: GABAPENTIN 400 MG CAPSULE PO SCH ×3 (05:25→21:56)
[2017-07-24] MEDS: ACETAMINOPHEN WITH CODEINE #3 TABLET PO SCH ×3 (05:26→21:56)
[2017-07-24] MEDS: LANSOPRAZOLE 30 MG TAB.RAP.DR PO SCH (05:26)
[2017-07-24] MEDS: METHYLPREDNISOLONE INJ 125 MG/2 ML SDV IV SCH ×2 (05:26→13:22)
[2017-07-24 05:27] LABS: ALANINE AMINOTRANSFERASE 21 U/L (9-52); ALBUMIN 3.6 g/dL (3.5-5.0); ALKALINE PHOSPHATASE 78 U/L (38-126); ANION GAP 11 (5-19); ASPARTATE AMINO TRANSFERASE 40 U/L (14-36); BILIRUBIN,DIRECT 0.2 mg/dL (0.0-0.4); BILIRUBIN,TOTAL 0.2 mg/dL (0.2-1.3); BLOOD UREA NITROGEN 41 mg/dL (7-20); CALCIUM 9.7 mg/dL (8.4-10.2); CARBON DIOXIDE 27 mmol/L (22-30); CHLORIDE 102 mmol/L (98-107); GLUCOSE 253 mg/dL (75-110); POTASSIUM 4.8 mmol/L (3.6-5.0); SODIUM 140.4 mmol/L (137-145); TOTAL PROTEIN 7.2 g/dL (6.3-8.2)
[2017-07-24] MEDS: METFORMIN HCL 500 MG TABLET PO SCH ×2 (08:12→17:14)
[2017-07-24] MEDS: PIOGLITAZONE HCL 30 MG TABLET PO SCH (08:12)
[2017-07-24] MEDS: INSULIN LISPRO 100 UNIT/ML 3 ML VIAL SUBCUT PRN ×4 (08:13→21:57)
[2017-07-24] MEDS: METOPROLOL SUCCINATE 50 MG TAB.SR.24H PO SCH (09:54)
[2017-07-24] MEDS: DULOXETINE HCL 30 MG CAPSULE.DR PO SCH ×2 (09:55→21:57)
[2017-07-24] MEDS: ENOXAPARIN SODIUM INJ 40 MG/0.4 ML DISP.SYRIN SUBCUT SCH (09:55)
[2017-07-24] MEDS: SITAGLIPTIN PHOSPHATE 50 MG TABLET PO SCH (09:55)
[2017-07-24] MEDS ORDERED: PREDNISONE 5 MG TABLET PO SCH (15:30)
--- NOTE | 2017-07-24 15:33 | PDOC PROGRESS REPORT ---
Subjective Progress Note for:: 07/24/17 Subjective:: Patient was seen by the bedside, she is still on IV Solu-Medrol, she is improving on present regimen, the IV Solu-Medrol will be discontinued on transition to p.o. prednisone, hopefully discharge home tomorrow Reason For Visit: ACUTE HYPERCAPNIC RESPIRATORY FAILURE,ACUTE COPD Physical Exam Vital Signs: Temp Pulse Resp BP Pulse Ox 97.7 F 72 18 121/56 L 96 07/24/17 11:28 07/24/17 14:00 07/24/17 11:28 07/24/17 11:28 07/24/17 11:28 Intake & Output 07/23/17 07/24/17 07/25/17 06:59 06:59 06:59 Intake Total 2613 1692 604 Balance 2613 1692 604 Weight 109.5 kg 109.2 kg General appearance: PRESENT: no acute distress Eye exam: PRESENT: PERRLA Respiratory exam: PRESENT: rhonchi Cardiovascular exam: PRESENT: +S1, +S2 GI/Abdominal exam: PRESENT: soft Results Laboratory Results: 07/24/17 04:09 07/24/17 04:09 07/24/17 07/24/17 04:09 04:09 WBC 13.8 H RBC 4.03 Hgb 13.0 Hct 38.9 MCV 96 MCH 32.2 MCHC 33.5 RDW 14.7 H Plt Count 243 Seg Neutrophils % 90.3 H Lymphocytes % 6.8 L Monocytes % 2.8 L Eosinophils % 0.0 Basophils % 0.1 Absolute Neutrophils 12.4 H Absolute Lymphocytes 0.9 Absolute Monocytes 0.4 Absolute Eosinophils 0.0 Absolute Basophils 0.0 Sodium 140.4 Potassium 4.8 Chloride 102 Carbon Dioxide 27 Anion Gap 11 BUN 41 H Creatinine 1.02 Est GFR ( Amer) > 60 Est GFR (Non-Af Amer) 53 L Glucose 253 H Calcium 9.7 Total Bilirubin 0.2 AST 40 H ALT 21 Alkaline Phosphatase 78 Total Protein 7.2 Albumin 3.6 07/21/17 07/21/17 07/22/17 18:40 18:40 00:32 Creatine Kinase 20 L 20 L CK-MB (CK-2) 0.56 Troponin I < 0.012 07/22/17 07/22/17 07/22/17 00:32 07:10 07:10 Creatine Kinase < 20 L CK-MB (CK-2) 0.48 0.43 Troponin I < 0.012 < 0.012 Impressions: Chest X-Ray 07/21/17 15:14 IMPRESSION: Atelectasis or early pneumonia left lower lobe. Assessment & Plan - Diagnosis (1) Acute hypercapnic respiratory failure Is this a current diagnosis for this admission?: Yes (2) Chronic obstructive pulmonary disease with acute exacerbation Is this a current diagnosis for this admission?: Yes (3) Diabetes mellitus type 2 in obese Is this a current diagnosis for this admission?: Yes (4) Left lower lobe pneumonia Qualifiers: Pneumonia type: due to unspecified organism Qualified Code(s): J18.1 - Lobar pneumonia, unspecified organism Is this a current diagnosis for this admission?: Yes - Plan Summary Plan Summary: Patient will continue glucocorticoid, discontinue Solu-Medrol, start prednisone , continue antibiotic, continue bronchodilators and other treatment
[2017-07-24] MEDS: CEFTRIAXONE SODIUM 1,000 MG in DEXTROSE 5%-WATER 50 ML IV SCH (17:17)
[2017-07-24] MEDS ORDERED: PREDNISONE 20 MG TABLET PO ONE (18:00)
[2017-07-24] MEDS: LEVOFLOXACIN 750 MG TABLET PO SCH (21:56)
[2017-07-25] MEDS: LANSOPRAZOLE 30 MG TAB.RAP.DR PO SCH (05:26)
[2017-07-25] MEDS: ACETAMINOPHEN WITH CODEINE #3 TABLET PO SCH ×2 (05:26→13:52)
[2017-07-25] MEDS: GABAPENTIN 400 MG CAPSULE PO SCH ×2 (05:26→13:52)
[2017-07-25] MEDS: METOPROLOL SUCCINATE 50 MG TAB.SR.24H PO SCH (09:28)
[2017-07-25] MEDS: DULOXETINE HCL 30 MG CAPSULE.DR PO SCH (09:29)
[2017-07-25] MEDS: PIOGLITAZONE HCL 30 MG TABLET PO SCH (09:29)
[2017-07-25] MEDS: SITAGLIPTIN PHOSPHATE 50 MG TABLET PO SCH (09:29)
[2017-07-25] MEDS: METFORMIN HCL 500 MG TABLET PO SCH (09:30)
[2017-07-25] MEDS: INSULIN LISPRO 100 UNIT/ML 3 ML VIAL SUBCUT PRN ×2 (09:30→13:53)
[2017-07-25] MEDS: ENOXAPARIN SODIUM INJ 40 MG/0.4 ML DISP.SYRIN SUBCUT SCH (09:30)
[2017-07-25] MEDS ORDERED: PREDNISONE 20 MG TABLET PO SCH (10:00)
[2017-07-25 13:03] VITALS: BP 114/61
--- NOTE | 2017-07-25 15:10 | PDOC DISCHARGE SUMMARY ---
General - Admit/Disc Date/PCP Admission Date/Primary Care Provider: 07/21/17 17:27 TOÑA MCLEAN MD Discharge Date: 07/25/17 - Discharge Diagnosis (1) Acute hypercapnic respiratory failure Is this a current diagnosis for this admission?: Yes (2) Chronic obstructive pulmonary disease with acute exacerbation Is this a current diagnosis for this admission?: Yes (3) Diabetes mellitus type 2 in obese Is this a current diagnosis for this admission?: Yes (4) Left lower lobe pneumonia Is this a current diagnosis for this admission?: Yes - Additional Information Prescriptions: Prednisone [Deltasone 20 mg Tablet] 20 mg PO DAILY #5 tablet Home Medications: Acetaminophen with Codeine [Acetaminophen-Cod #3 Tablet] 1 tab PO Q8 07/21/17 Canagliflozin [Invokana] 300 mg PO DAILY 07/21/17 Duloxetine HCl [Cymbalta] 60 mg PO Q12 07/21/17 Gabapentin [Neurontin] 1,200 mg PO Q8 07/21/17 Linagliptin [Tradjenta] 5 mg PO DAILY 07/21/17 Metoprolol Succinate [Toprol XL 100 mg Tablet] 100 mg PO DAILY 07/21/17 Omeprazole 40 mg PO DAILY 07/21/17 Pioglitazone HCl [Actos] 30 mg PO QAM 07/21/17 Prednisone [Deltasone 20 mg Tablet] 20 mg PO DAILY #5 tablet 07/25/17 History of Present Illness History of Present Illness: DARCY NAVA is a 72 year old female,She has a history of chronic obstructive pulmonary disease, she came to the emergency room for evaluation of respiratory distress, she was wheezing, she was using accessory muscle of respiration to breathe,. She requires noninvasive positive pressure ventilation in the emergency room, I saw her in the emergency room she was obviously in distress, she was started on intravenous Solu-Medrol in the ER before a bed was assigned on the floor. Patient is well-known to me she has multiple comorbid conditions including chronic obstructive lung disease, type 2 diabetes mellitus, history of colonic perforation. She will require intravenous Solu-Medrol, she is a very labile diabetic she would need close monitoring in the hospital setting because of the risk of excessive elevation of blood sugar, she may need insulin drip, because of all these reasons the patient is appropriate at this time for inpatient care Hospital Course Hospital Course: She was admitted for the management of acute hypercapnic respiratory failure due to COPD exacerbation and left lower lobe pneumonia, she was treated with IV antibiotic, IV Solu-Medrol, noninvasive positive ventilation with BiPAP patient improved on treatment regimen. She was transitioned to p.o. prednisone from IV Solu-Medrol yesterday Physical Exam Vital Signs: Temp Pulse Resp BP Pulse Ox 97.6 F 81 16 114/61 100 07/25/17 11:53 07/25/17 11:53 07/25/17 11:53 07/25/17 11:53 07/25/17 11:53 Intake & Output 07/24/17 07/25/17 07/26/17 06:59 06:59 06:59 Intake Total 1692 1231 354 Balance 1692 1231 354 Weight 109.2 kg 110.6 kg General appearance: PRESENT: no acute distress, well-developed, well-nourished Head exam: PRESENT: atraumatic, normocephalic Eye exam: PRESENT: conjunctiva pink, EOMI, PERRLA Ear exam: PRESENT: normal external ear exam Mouth exam: PRESENT: moist, tongue midline Neck exam: PRESENT: full ROM Respiratory exam: PRESENT: clear to auscultation [place] Cardiovascular exam: PRESENT: RRR, +S1, +S2 Pulses: PRESENT: normal dorsalis pedis pul, +2 pedal pulses bilateral Vascular exam: PRESENT: normal capillary refill GI/Abdominal exam: PRESENT: normal bowel sounds, soft Rectal exam: PRESENT: deferred Neurological exam: PRESENT: alert, awake, oriented to person, oriented to place , oriented to time, oriented to situation, CN II-XII grossly intact Psychiatric exam: PRESENT: appropriate affect, normal mood Skin exam: PRESENT: dry, intact, warm Results Laboratory Results: 07/24/17 04:09 07/24/17 04:09 07/21/17 20:05 Clean Catch Midstream Urine Culture - Final Staph Coagulase Negative 07/21/17 07/21/17 07/22/17 18:40 18:40 00:32 Creatine Kinase 20 L 20 L CK-MB (CK-2) 0.56 Troponin I < 0.012 07/22/17 07/22/17 07/22/17 00:32 07:10 07:10 Creatine Kinase < 20 L CK-MB (CK-2) 0.48 0.43 Troponin I < 0.012 < 0.012 Impressions: Chest X-Ray 07/21/17 15:14 IMPRESSION: Atelectasis or early pneumonia left lower lobe. Qualifiers - * PATIENT BEING DISCHARGED WITH ANY OF THE FOLLOWING DIAGNOSIS: No
== END 2017-07-25 15:54 | disposition home or self-care (01) | DRG 189 ==
LOC: ER 14:49 → EH 17:27 → 3W 21:25
PROVIDERS: ADMIT Internal Medicine; ATTEND Internal Medicine
PROC: 5A09457 Assistance with Respiratory Ventilation, 24-96 Consecutive Hours, Continuous Positive Airway Pressure (ICD-10-PCS; principal; 2017-07-21)
DX: J96.02 Acute respiratory failure with hypercapnia (principal); J18.1 Lobar pneumonia, unspecified organism; J44.1 Chronic obstructive pulmonary disease with (acute) exacerbation; J44.0 Chronic obstructive pulmonary disease with (acute) lower respiratory infection; I12.9 Hypertensive chronic kidney disease with stage 1 through stage 4 chronic kidney disease, or unspecified chronic kidney disease; E11.22 Type 2 diabetes mellitus with diabetic chronic kidney disease; N18.3 Chronic kidney disease, stage 3 (moderate); M19.90 Unspecified osteoarthritis, unspecified site; K44.9 Diaphragmatic hernia without obstruction or gangrene; F32.9 Major depressive disorder, single episode, unspecified; E66.9 Obesity, unspecified; Z79.899 Other long term (current) drug therapy; Z90.710 Acquired absence of both cervix and uterus; Z86.718 Personal history of other venous thrombosis and embolism; Z90.49 Acquired absence of other specified parts of digestive tract; Z87.891 Personal history of nicotine dependence; Z83.3 Family history of diabetes mellitus; Z80.0 Family history of malignant neoplasm of digestive organs; Z82.5 Family history of asthma and other chronic lower respiratory diseases; Z88.8 Allergy status to other drugs, medicaments and biological substances; Z68.36 Body mass index [BMI] 36.0-36.9, adult
CPT/HCPCS: 36415; 71045; 80048; 80053; 80061; 80076; 80307; 81001; 82140; 82150; 82550; 82553; 82803; 82962; 83036; 83690; 83735; 83880; 84100; 84439; 84443; 84484; 85025; 85610; 85730; 87040; 87086; 93005; 93010; 94640; 94660; 96365; 96375; 99291; J0456; J0696; J1650; J1815; J1956; J2930; J3475; J3490; J7512; J7620

== ENCOUNTER 2017-08-24 15:56 | Inpatient (IN) | payer MEDICARE, MEDICAID ==
--- NOTE | 2017-08-24 16:28 | ER Document Report ---
ED General - General Mode of Arrival: Ambulatory Information source: Patient, Emergency Med Personnel Cannot obtain history due to: Altered mental status TRAVEL OUTSIDE OF THE [place] IN LAST 30 DAYS: No <JACKY CHAUDHARY - Last Filed: 08/24/17 17:13> <SILVIA KOHLI - Last Filed: 08/24/17 20:34> <LINDY BANERJEE - Last Filed: 08/24/17 23:33> <RYAN MASON - Last Filed: 08/25/17 01:08> - General Chief Complaint: Leg Pain Stated Complaint: ALTERED MENTAL STATUS Time Seen by Provider: 08/24/17 16:12 Notes: Patient is a 72 year old female with COPD, HTN, diabetes type 2, arthritis presents to the emergency department complaining of leg pain. When asking if she was currently having leg pain, she states no and she would like to go to [facility]. When told she is at [facility] she says "No", and repeatedly states, "[facility]". She then points to her right leg and states [facility]. According to nurse, patient was at home and she pushed her life alert button. No other history was given. Significant previous history from [facility] reports the patient previously had C-diff after which the patient became septic, DVT, and extended right hemicolectomy with end ileostomy bag. Patient is currently prescribed Tylenol #3 (3x a day, previously prescribed 4x a day) and Cymbalta. (JACKY CHAUDHARY) - Related Data Allergies/Adverse Reactions: propoxyphene [From Darvocet-N] Allergy (Verified 04/21/17 06:10) Delirium tapentadol [From Nucynta] Allergy (Verified 04/21/17 06:10) Delirium Past Medical History - General Information source: Patient Cannot obtain history due to: Altered mental status - Social History Smoking Status: Former Smoker - quit in 2011 Family History: COPD, DM, Malignancy - Brother with throat cancer, Other - Father with tuberculosis Patient has suicidal ideation: No Patient has homicidal ideation: No - Past Medical History Cardiac Medical History: Reports: Hx DVT, Hx Hypertension - ON MEDS Pulmonary Medical History: Reports: Hx Bronchitis, Hx COPD - USES NEB AND INHALER, Hx Pneumonia - 2 YRS AGO Endocrine Medical History: Reports: Hx Diabetes Mellitus Type 2 Renal/ Medical History: Reports: Hx End Stage Renal Disease - Stage 3- NO DIALYSIS Malignancy Medical History: Reports: Hx Ovarian Cancer - PRE-CANCEROUS, TOTAL HYST, QUINN SALPINGOOPHORECTOMY GI Medical History: Reports: Hx Hiatal Hernia Musculoskeltal Medical History: Reports Hx Arthritis Psychiatric Medical History: Reports: Hx Depression Past Surgical History: Reports: Hx Abdominal Surgery, Hx Appendectomy, Hx Bowel Surgery - EX LAP, ILEOSTOMY, Hx Colostomy - History of colostomy revision , History of resection of the colon, Hx Hysterectomy, Hx Kidney (Renal Surgery) - Right kidney, Hx Orthopedic Surgery - left shoulder, Other - Recent history of extended right hemicolectomy with end ileostomy bag, rvsd. Denies: Hx Section, Hx Cholecystectomy, Hx Coronary Artery Bypass Graft, Hx Gastric Bypass Surgery, Hx Herniorrhaphy, Hx Mastectomy, Hx Pacemaker, Hx Tonsillectomy, Hx Tubal Ligation - Immunizations Immunizations up to date: Yes Hx Diphtheria, Pertussis, Tetanus Vaccination: Yes Hx Pneumococcal Vaccination: 05/27/13 <JACKY CHAUDHARY - Last Filed: 08/24/17 17:13> Review of Systems - Review of Systems -: Yes ROS unobtainable due to patient's medical condition <JACKY CHAUDHARY - Last Filed: 08/24/17 17:13> Physical Exam - General General appearance: Alert, Combative In distress: None - HEENT Head: Normocephalic, Atraumatic Eyes: Normal Conjunctiva: Normal Extraocular movements intact: Yes Pupils: PERRL Neck: Normal - Respiratory Respiratory status: No respiratory distress - Extremities General upper extremity: Normal ROM General lower extremity: Normal ROM - Neurological Cognition: Confused - Psychological Associated symptoms: Aggressive - Skin Skin Temperature: Warm Skin Moisture: Dry Skin Color: Normal <JACKY CHAUDHARY - Last Filed: 08/24/17 17:13> - HEENT Head: Normocephalic, Atraumatic Eyes: Normal Pupils: PERRL Neck: Normal - Respiratory Breath sounds: Normal - Cardiovascular Rhythm: Regular Heart sounds: Normal auscultation Murmur: No - Abdominal Inspection: Healed incision - Old surgical scars from hemicolectomy and diverting ileostomy Bowel sounds: Normal Tenderness: Nontender - Back Back: Normal - Extremities General upper extremity: Normal inspection, Normal ROM General lower extremity: Normal inspection, Normal ROM - Neurological Neuro grossly intact: Yes Cognition: Confused - Psychological Associated symptoms: Aggressive, Agitated, Paranoid, Tangential speech, Uncooperative - Skin Skin Temperature: Warm Skin Moisture: Dry Skin Color: Normal <SILVIA KOHLI - Last Filed: 08/24/17 20:34> - Vital signs Vitals: Resp 20 08/24/17 16:00 Course <JACKY CHAUDHARY - Last Filed: 08/24/17 17:13> - Consults Dr. Lizarraga Time consulted: 19:45 Consulted provider: will come to ER - Came into the room with me to see his patient. He agrees she needs to be admitted but would like to at least get electrolytes before starting the admission process. - Transfer of Care Care transferred to following provider: Dr. Mason <SILVIA KOHLI - Last Filed: 08/24/17 20:34> - Laboratory Result Diagrams: 08/24/17 22:57 08/24/17 22:57 <LINDY BANERJEE - Last Filed: 08/24/17 23:33> - Laboratory Result Diagrams: 08/24/17 22:57 08/24/17 22:57 <RYAN MASON - Last Filed: 08/25/17 01:08> - Re-evaluation Re-evalutation: 08/24/17 19:53 Dr. Lizarraga accompanied me into the room to see the patient that he knows well. She was still very uncooperative despite the Haldol, Benadryl, and Ativan. When he would try to ask her why she was here she would begin saying "no no no' and waving her finger at him. He states she is normally completely alert oriented and cooperative. (SILVIA KOHLI) 08/24/17 23:[address] Lizarraga who agrees to admit pt. (LINDY BANERJEE) 08/24/17 23:35 Patient is a 72-year-old female who presents with altered mental status. Received signout on this patient from Dr. Kohli who had already talked to the patient's primary, Dr. Lizarraga about this patient. The patient was agitated and uncooperative. It took about 3-1/2 hours to get her blood work and urine. She finally was cooperative after intranasal Versed, 2 mg. Urine does have bacteria and culture has been sent. Blood work is not showing any acute findings. Patient is positive for opiates on urine tox but this is not consistent with her confusion. Blood cultures have also been sent and the patient was started on Rocephin as a UTI could possibly cause her symptoms. She was discussed with Dr. Lizarraga and admitted for altered mental status. Stable at the time of admission. (RYAN MASON) - Vital Signs Vital signs: Temp Pulse Resp BP Pulse Ox 20 08/24/17 16:00 - Laboratory Laboratory results interpreted by me: 08/24/17 08/24/17 08/24/17 21:55 22:57 22:57 RDW 15.5 H Carbon Dioxide 21 L Glucose 224 H Urine Glucose (UA) >=500 H Urine Ketones 80 H - Transfer of Care Notes: 08/24/17 20:35 The patient will need to receive incremental dosing of medication until she is calm enough and cooperative enough to allow labs to be drawn. Dr. Lizarraga will admit the patient after the lab work comes back. (SILVIA KOHLI) Discharge <JACKY CHAUDHARY - Last Filed: 08/24/17 17:13> <SILVIA KOHLI - Last Filed: 08/24/17 20:34> <LINDY BANERJEE - Last Filed: 08/24/17 23:33> - Discharge Admitting Provider: [facility] Unit Admitted: [facility] <RYAN MASON - Last Filed: 08/25/17 01:08> - Discharge Clinical Impression: Altered mental status Qualifiers: Altered mental status type: unspecified Qualified Code(s): R41.82 - Altered mental status, unspecified UTI (urinary tract infection) Qualifiers: Urinary tract infection type: site unspecified Hematuria presence: without hematuria Qualified Code(s): N39.0 - Urinary tract infection, site not specified Condition: Stable Disposition: ADMITTED OBSERVATION Scribe Attestation: 08/24/17 18:21 I personally performed the services described in the documentation, reviewed and edited the documentation which was dictated to the scribe in my presence, and it accurately records my words and actions. (SILVIA KOHLI) Scribe Documentation - Scribe Written by Norberte:: Araceli Gruber, 08/24/2017 14:56 acting as scribe for :: Teetee <JACKY CHAUDHARY - Last Filed: 08/24/17 17:13> - Scribe Written by Norberte:: Sonja acting as scribe for :: Ale <RYAN MASON - Last Filed: 08/25/17 01:08>
[2017-08-24] MEDS ORDERED: DIPHENHYDRAMINE HCL 50 MG/ML VIAL IM ONE (17:16)
[2017-08-24] MEDS ORDERED: HALOPERIDOL LACTATE INJ 5 MG/1 ML VIAL IM ONE ×2 (17:16→20:04)
--- NOTE | 2017-08-24 18:17 | RADIOLOGY REPORT (SQ) ---
EXAM DESCRIPTION: CHEST SINGLE VIEW COMPLETED DATE/TIME: 08/24/2017 5:56 pm REASON FOR STUDY: COPD, alterred LOC COMPARISON: 07/21/2017 EXAM PARAMETERS: NUMBER OF VIEWS: One view. TECHNIQUE: Single frontal radiographic view of the chest acquired. RADIATION DOSE: NA LIMITATIONS: None. FINDINGS: LUNGS AND PLEURA: No opacities, masses or pneumothorax. No pleural effusion. MEDIASTINUM AND HILAR STRUCTURES: No masses. Contour normal. HEART AND VASCULAR STRUCTURES: Heart normal in size. Normal vasculature. BONES: No acute findings. HARDWARE: None in the chest. OTHER: No other significant finding. IMPRESSION: NO ACUTE RADIOGRAPHIC FINDING IN THE CHEST. TECHNICAL DOCUMENTATION: JOB ID: [id number] [employer]- All Rights Reserved Reading location - IP/workstation name: [email or web address]
--- NOTE | 2017-08-24 18:34 | RADIOLOGY REPORT (SQ) ---
EXAM DESCRIPTION: CT HEAD WITHOUT COMPLETED DATE/TIME: 08/24/2017 6:04 pm REASON FOR STUDY: alterred LOC COMPARISON: 05/05/2017 TECHNIQUE: Axial images acquired through the brain without intravenous contrast. Images reviewed wi th bone, brain and subdural windows. Additional sagittal and coronal reconstructions were generated. Images stored on PACS. All CT scanners at this facility use dose modulation, iterative reconstruction, and/or weight based d osing when appropriate to reduce radiation dose to as low as reasonably achievable (ALARA). [facility]: Dose Right [facility]: CareDose [facility]: Dose Right [facility]: Teradose 4D [facility]: Smart ECO RADIATION DOSE: CT Rad equipment meets quality standard of care and radiation dose reduction techniq ues were employed. CTDIvol: 53.2 mGy. DLP: 991 mGy-cm. mGy. LIMITATIONS: None. FINDINGS: VENTRICLES: Normal size and contour. CEREBRUM: No masses. No hemorrhage. No midline shift. No evidence for acute infarction. Normal gra y/white matter differentiation. No areas of low density in the white matter. CEREBELLUM: No masses. No hemorrhage. No alteration of density. No evidence for acute infarction. EXTRAAXIAL SPACES: No fluid collections. No masses. A degree of cortical atrophy is identified jamshid cially in the frontal regions and over the convexities unchanged from the previous study. ORBITS AND GLOBE: No intra- or extraconal masses. Normal contour of globe without masses. CALVARIUM: No fracture. PARANASAL SINUSES: No fluid or mucosal thickening. SOFT TISSUES: No mass or hematoma. OTHER: No other significant finding. IMPRESSION: No significant interval change. No acute findings. Other findings as noted above. EVIDENCE OF ACUTE STROKE: NO. COMMENT: Quality ID # [id number]: Final reports with documentation of one or more dose reduction techniques (e.g., Automated exposure control, adjustment of the mA and/or kV according to patient size, use of iterative reconstruction technique) TECHNICAL DOCUMENTATION: JOB ID: [id number] [employer] All Rights Reserved Reading location - IP/workstation name: [email or web address]
[2017-08-24] MEDS ORDERED: LORAZEPAM INJ 2 MG/1 ML VIAL IV ONE (18:38)
[2017-08-24] MEDS ORDERED: NORMAL SALINE 1000 ML 1,000 ML IV ONE (19:51)
[2017-08-24] MEDS ORDERED: HALOPERIDOL LACTATE INJ 5 MG/1 ML VIAL IV ONE (19:51)
[2017-08-24] MEDS ORDERED: MIDAZOLAM HCL INJ 5 MG/1 ML VIAL NASL ONE (21:57)
[2017-08-24 22:10] LABS: APPEARANCE,URINE CLEAR; BILIRUBIN,URINE NEGATIVE (NEGATIVE); COLOR,URINE YELLOW; GLUCOSE, URINE >=500 mg/dL (NEGATIVE); KETONES,URINE 80 mg/dL (NEGATIVE); LEUKOCYTE ESTERASE,URINE NEGATIVE (NEGATIVE); NITRITE,URINE NEGATIVE (NEGATIVE); PROTEIN,URINE NEGATIVE (NEGATIVE); URINE SPECIFIC GRAVITY 1.023; UROBILINOGEN,URINE NEGATIVE mg/dL (<2.0)
[2017-08-24 22:21] LABS: URINE AMPHETAMINES SCREEN NEGATIVE; URINE BARBITURATES SCREEN NEGATIVE; URINE BENZODIAZEPINES SCREEN NEGATIVE; URINE COCAINE SCREEN NEGATIVE; URINE MARIJUANA (THC) SCREEN NEGATIVE; URINE METHADONE SCREEN NEGATIVE; URINE PHENCYCLIDINE SCREEN NEGATIVE
[2017-08-24 23:07] LABS: ABSOLUTE EOSINOPHILS # (AUTO) 0.1 10^3/uL (0.0-0.6); ABSOLUTE LYMPHOCYTES (AUTO) 1.5 10^3/uL (0.5-4.7); ABSOLUTE MONOCYTES (AUTO) 0.5 10^3/uL (0.1-1.4); ABSOLUTE NEUT (AUTO) 7.5 10^3/uL (1.7-8.2); BASOPHILS % (AUTO) 0.4 % (0-2); HEMOGLOBIN 13.9 g/dL (12.0-15.5); LYMPHOCYTES % (AUTO) 15.3 % (13-45); MEAN CORPUSCULAR HGB CONC 33.9 g/dL (32.0-36.0); MEAN CORPUSCULAR VOLUME 94 fl (80-97); MONOCYTES % (AUTO) 5.5 % (3-13); PLATELET COUNT 322 10^3/uL (150-450); RED BLOOD COUNT 4.35 10^6/uL (3.72-5.28); RED CELL DISTRIBUTION WIDTH 15.5 % (11.5-14.0); SEGMENTED NEUTROPHILS % (AUTO) 77.8 % (42-78); TOTAL CELLS COUNTED % (AUTO) 100 %; WHITE BLOOD COUNT 9.6 10^3/uL (4.0-10.5)
[2017-08-24 23:12] LABS: INTERNATIONAL RATION (INR) 1.01; PROTHROMBIN TIME 13.8 SEC (11.4-15.4)
[2017-08-24 23:22] LABS: ALANINE AMINOTRANSFERASE 22 U/L (9-52); ALBUMIN 3.8 g/dL (3.5-5.0); ALKALINE PHOSPHATASE 109 U/L (38-126); ANION GAP 18 (5-19); ASPARTATE AMINO TRANSFERASE 22 U/L (14-36); BILIRUBIN,DIRECT 0.3 mg/dL (0.0-0.4); BILIRUBIN,TOTAL 0.6 mg/dL (0.2-1.3); BLOOD UREA NITROGEN 13 mg/dL (7-20); CALCIUM 9.5 mg/dL (8.4-10.2); CARBON DIOXIDE 21 mmol/L (22-30); CHLORIDE 105 mmol/L (98-107); CREATINE KINASE 52 U/L (30-135); GLUCOSE 224 mg/dL (75-110); POTASSIUM 4.3 mmol/L (3.6-5.0); SODIUM 144.2 mmol/L (137-145); TOTAL PROTEIN 7.2 g/dL (6.3-8.2)
[2017-08-24] MEDS ORDERED: CEFTRIAXONE 1 GM/D5W RTU 1 GM/50 ML RTUPB IV ONE (23:29)
[2017-08-25 02:36] LABS: VENOUS BLOOD BASE EXCESS -2.5 mmol/L; VENOUS BLOOD HCO3 24.1 mmol/L (20-32); VENOUS BLOOD PCO2 48.5 mmHg (35-63); VENOUS BLOOD PH 7.31 (7.30-7.42)
--- NOTE | 2017-08-25 07:07 | EKG REPORT ---
SEVERITY:- ABNORMAL ECG - SINUS TACHYCARDIA LEFT ANTERIOR FASCICULAR BLOCK BORDERLINE PROLONGED QT INTERVAL : Confirmed by: Kevin Morales MD 25-Aug-2017 07:06:59
[2017-08-25] MEDS ORDERED: (PENDING PHARMACY ID) (Canagliflozin [Invokana] 300 MG) PO SCH (07:45)
[2017-08-25] MEDS: METOPROLOL SUCCINATE 50 MG TAB.SR.24H PO SCH (13:05)
[2017-08-25 17:30] LABS: ARTERIAL BLOOD BASE EXCESS -1.4 mmol/L; ARTERIAL BLOOD H2CO3 1.38 mmol/L (1.05-1.35); ARTERIAL BLOOD HCO3 24.6 mmol/L (20-26); ARTERIAL BLOOD O2 SATURATION 96.2 % (94-98); ARTERIAL BLOOD PCO2 45.7 mmHg (35-45); ARTERIAL BLOOD PH 7.35 (7.35-7.45); ARTERIAL BLOOD PO2 87.3 mmHg (80-100)
[2017-08-25 17:31] LABS: ARTERIAL BLOOD FIO2 2L
--- NOTE | 2017-08-25 17:50 | PSYCHOLOGICAL NOTE ---
Psych Note - Psych Note Psych Note: Met with Patient at the request of Dr. Kingsley. Upon entering the room and introducing myself, the Patient turned her head in the opposite direction of where I was standing and repeated the word "no." When asked the reason for coming to the hospital, the Patient responded " Bita" several times. I continued to ask questions and she was mostly non-responsive to questions and conversation. Suddenly, the Patient states, "I'm not crazy." When asked if she and I had met before she indicated we had but was unable to recall when that meeting happened. I continued to press for when we had previously met, and the Patient responded with " O viky booooww booooowww" several times in row. She remained quiet as questions were asked about her mood, pain levels, living situation, support systems, medical problems, comfort level, etc. Patient then stated "maybe you didn't say I was crazy...hmmm...maybe you didn't." After this exchange the Patient did not engage in further conversation for several more minutes and refused to answer any questions. Patient was alert but not oriented to place, circumstance, or time. She was oriented to person. Mood was irritable and at times irritable. Affect was mood congruent. She refused to answer questions of suicidal or homicidal ideation, intent or plan. She refused to answer questions of psychosis and delusional content was difficult to assess secondary to altered mental status. She did not appear to be responding to internal stimuli. Conversational speech was halted, loud, aprosodic, and disorganized. Thought processes were disorganized and irrational. Attention and concentration was impaired. Insight, judgment, and impulse control were impaired. Patient's presentation appeared in part to be behavioral, more consistent with a neurological disturbance than a psychiatric episode. Diagnoses: 1. Delirium of unknown origin 2. Rule out Hyperglycemia secondary to diabetes 3. Rule out Opioid Intoxication 4. Rule out Cognitive Encephalophy due to bifrontal cortical atrophy Impression / Plan: Patient presents with altered mental status of unknown etiology. She does not appear to be in a psychosis and this does not appear to be related to a psychiatric episode. Her cognitive status is peculiar and she has multiple medical problems such as COPD, Diabetes, bifrontal cortical atrophy , etc. that potentially impacts her cognitive functioning when her physical functioning is not working efficiently. In this case, her presentation appears consistent with a medical problem (delirium) of current unknown etiology, and is not consistent with a psychiatric illness or event. Her presentation is also not consistent with a dementia-like process.
[2017-08-25] MEDS: DULOXETINE HCL 30 MG CAPSULE.DR PO SCH (18:19)
--- NOTE | 2017-08-25 20:04 | PDOC H&P ---
History of Present Illness Admission Date/PCP: 08/24/17 23:35 TOÑA MCLEAN MD History of Present Illness: DARCY NAVA is a 72 year old female, Patient is well-known to me she has a history of type 2 diabetes mellitus, chronic obstructive pulmonary disease she was brought to the emergency room for evaluation of acute confusion, the resident physician Dr. Kingsley called my attention to the patient yesterday evening, when I saw her she was confused but she knew who I was she called out my name, but there are times she was expressing unintelligible words.The CAT scan of the head that was done did not show any acute pathology, metabolic panel was normal there is no metabolic explanation for the acute confusion. She was also evaluated in the emergency room by the psychologist, the psychologist does not think she has psychosis, she has bacteriuria that suggest UTI ,not sure if the UTI is the etiology of the acute confusion Past Medical History Cardiac Medical History: Reports: DVT, Hypertension - ON MEDS Pulmonary Medical History: Reports: Bronchitis, Chronic Obstructive Pulmonary Disease (COPD) - USES NEB AND INHALER, Pneumonia - 2 YRS AGO Endocrine Medical History: Reports: Diabetes Mellitus Type 2 GI Medical History: Reports: Hiatal Hernia Musculoskeltal Medical History: Reports: Arthritis Psychiatric Medical History: Reports: Depression Hematology: Reports: Anemia Infectious Medical History: Denies: HIV Past Surgical History Past Surgical History: Reports: Appendectomy, Colostomy - History of colostomy revision , History of resection of the colon, Hysterectomy, Orthopedic Surgery - left shoulder, Other - Recent history of extended right hemicolectomy with end ileostomy bag, rvsd Social History Smoking Status: Former Smoker Frequency of Alcohol Use: Rare Hx Recreational Drug Use: No Drugs: None Hx Prescription Drug Abuse: No Family History Family History: COPD, DM, Malignancy - Brother with throat cancer, Other - Father with tuberculosis Parental Family History Reviewed: Yes Children Family History Reviewed: Yes Sibling(s) Family History Reviewed.: Yes Medication/Allergy Home Medications: Acetaminophen with Codeine [Acetaminophen-Cod #3 Tablet] 1 tab PO Q8 07/21/17 Canagliflozin [Invokana] 300 mg PO DAILY 07/21/17 Duloxetine HCl [Cymbalta] 60 mg PO Q12 07/21/17 Gabapentin [Neurontin] 1,200 mg PO Q8 07/21/17 Linagliptin [Tradjenta] 5 mg PO DAILY 07/21/17 Metoprolol Succinate [Toprol XL 100 mg Tablet] 100 mg PO DAILY 07/21/17 Omeprazole 40 mg PO DAILY 07/21/17 Pioglitazone HCl [Actos] 30 mg PO QAM 07/21/17 Insulin Detemir [Levemir Flextouch] 50 units SUBCUT QAM 08/24/17 Insulin Detemir [Levemir Flextouch] 55 unit SQ QPM 08/24/17 Allergies/Adverse Reactions: propoxyphene [From Darvocet-N] Allergy (Verified 04/21/17 06:10) Delirium tapentadol [From Nucynta] Allergy (Verified 04/21/17 06:10) Delirium Review of Systems Constitutional: ABSENT: chills, fever(s), headache(s), weight gain, weight loss Eyes: ABSENT: visual disturbances Ears: ABSENT: hearing changes Cardiovascular: ABSENT: chest pain, dyspnea on exertion, edema, orthropnea, palpitations Respiratory: ABSENT: cough, hemoptysis Gastrointestinal: ABSENT: abdominal pain, constipation, diarrhea, hematemesis, hematochezia, nausea, vomiting Genitourinary: ABSENT: dysuria, hematuria Musculoskeletal: ABSENT: joint swelling Integumentary: ABSENT: rash, wounds Neurological: PRESENT: confusion. ABSENT: abnormal gait, abnormal speech, dizziness, focal weakness, syncope Psychiatric: ABSENT: anxiety, depression, homidical ideation, suicidal ideation Endocrine: ABSENT: cold intolerance, heat intolerance, menstrual abnormalities, polydipsia, polyuria Hematologic/Lymphatic: ABSENT: easy bleeding, easy bruising, lymphadenopathy Physical Exam Vital Signs: Temp Pulse Resp BP Pulse Ox 98.1 F 86 20 141/88 H 94 08/25/17 18:27 08/25/17 19:00 08/25/17 18:27 08/25/17 18:27 08/25/17 18:27 Intake & Output 08/24/17 08/25/17 08/26/17 06:59 06:59 06:59 Intake Total 10 Balance 10 Weight 104.6 kg General appearance: PRESENT: no acute distress, well-developed, well-nourished Head exam: PRESENT: atraumatic, normocephalic Eye exam: PRESENT: conjunctiva pink, EOMI, PERRLA Ear exam: PRESENT: normal external ear exam Mouth exam: PRESENT: moist, tongue midline Neck exam: PRESENT: full ROM Respiratory exam: PRESENT: wheezes Cardiovascular exam: PRESENT: RRR, +S1, +S2 Pulses: PRESENT: normal dorsalis pedis pul, +2 pedal pulses bilateral Vascular exam: PRESENT: normal capillary refill GI/Abdominal exam: PRESENT: normal bowel sounds, soft Rectal exam: PRESENT: deferred Neurological exam: PRESENT: alert, awake, oriented to person, oriented to place , oriented to time, oriented to situation, CN II-XII grossly intact Psychiatric exam: PRESENT: appropriate affect, normal mood Skin exam: PRESENT: dry, intact, warm Results Laboratory Results: 08/25/17 08/25/17 02:25 17:22 Carbonic Acid 1.38 H HCO3/H2CO3 Ratio 17:1 ABG pH 7.35 ABG pCO2 45.7 H ABG pO2 87.3 ABG HCO3 24.6 ABG O2 Saturation 96.2 ABG Base Excess -1.4 VBG pH 7.31 VBG pCO2 48.5 VBG HCO3 24.1 VBG Base Excess -2.5 FiO2 2L Impressions: Chest X-Ray 08/24/17 16:34 IMPRESSION: NO ACUTE RADIOGRAPHIC FINDING IN THE CHEST. Head CT 08/24/17 16:35 IMPRESSION: No significant interval change. No acute findings. Other findings as noted above. EVIDENCE OF ACUTE STROKE: NO. Assessment & Plan - Diagnosis (1) Encephalopathy, unspecified Is this a current diagnosis for this admission?: Yes Plan: The etiology of the acute condition is not clear (2) Chronic obstructive pulmonary disease Qualifiers: COPD type: unspecified COPD Qualified Code(s): J44.9 - Chronic obstructive pulmonary disease, unspecified Is this a current diagnosis for this admission?: Yes (3) Urinary tract infection Qualifiers: Urinary tract infection type: site unspecified Hematuria presence: without hematuria Qualified Code(s): N39.0 - Urinary tract infection, site not specified (4) Diabetes mellitus type 2 in obese Is this a current diagnosis for this admission?: Yes
[2017-08-25] MEDS: CIPROFLOXACIN HCL 500 MG TABLET PO SCH (21:15)
[2017-08-25] MEDS ORDERED: CIPROFLOXACIN HCL 500 MG TABLET PO SCH (22:00)
[2017-08-26] MEDS: LANSOPRAZOLE 30 MG TAB.RAP.DR PO SCH (05:19)
[2017-08-26] MEDS: PIOGLITAZONE HCL 30 MG TABLET PO SCH (08:43)
[2017-08-26] MEDS: DULOXETINE HCL 30 MG CAPSULE.DR PO SCH ×2 (09:29→16:53)
[2017-08-26] MEDS: SITAGLIPTIN PHOSPHATE 50 MG TABLET PO SCH (09:29)
[2017-08-26] MEDS: CIPROFLOXACIN HCL 500 MG TABLET PO SCH ×2 (09:29→21:33)
[2017-08-26] MEDS ORDERED: (PENDING PHARMACY ID) (Linagliptin [Tradjenta] 5 MG) PO SCH (10:00)
[2017-08-26] MEDS: METOPROLOL SUCCINATE 50 MG TAB.SR.24H PO SCH (12:22)
[2017-08-26] MEDS ORDERED: DEXTROSE 40% GEL 15 GM TUBE X 2 PO PRN (17:16)
[2017-08-26] MEDS ORDERED: GLUCAGON,HUMAN RECOMB 1 MG INJ IM PRN (17:16)
[2017-08-26] MEDS ORDERED: DEXTROSE 50%-WATER SYRINGE 25 GM/50 ML DOSE IV PRN (17:16)
[2017-08-26] MEDS ORDERED: DEXTROSE 40% GEL 15 GM TUBE PO PRN (17:16)
[2017-08-26] MEDS ORDERED: DEXTROSE 50%-WATER SYRINGE 12.5 GM/25 ML DOSE IV PRN (17:16)
[2017-08-26] MEDS ORDERED: ALBUTEROL SULFATE HFA (90 MCG/PUFF) 200 PUFF/8.5 GM MDI IH PRN (17:18)
[2017-08-26] MEDS ORDERED: FLUTICASONE/UMECLIDIN/VILANTER 100-62.5-25 MCG/DOSE IH ONE (19:30)
[2017-08-27] MEDS: LANSOPRAZOLE 30 MG TAB.RAP.DR PO SCH (06:20)
[2017-08-27] MEDS: CIPROFLOXACIN HCL 500 MG TABLET PO SCH ×2 (09:30→22:26)
[2017-08-27] MEDS: SITAGLIPTIN PHOSPHATE 50 MG TABLET PO SCH (09:30)
[2017-08-27] MEDS: PIOGLITAZONE HCL 30 MG TABLET PO SCH (09:30)
[2017-08-27] MEDS: DULOXETINE HCL 30 MG CAPSULE.DR PO SCH ×2 (09:30→17:23)
[2017-08-27] MEDS: FLUTICASONE/UMECLIDIN/VILANTER 100-62.5-25 MCG/DOSE IH SCH (09:31)
[2017-08-27] MEDS: INSULIN LISPRO 100 UNIT/ML 3 ML VIAL SUBCUT PRN ×3 (09:31→23:19)
[2017-08-27] MEDS: METOPROLOL SUCCINATE 50 MG TAB.SR.24H PO SCH (12:12)
--- NOTE | 2017-08-27 20:53 | PDOC PROGRESS REPORT ---
Subjective Progress Note for:: 08/27/17 Subjective:: Patient was admitted initially for observation for the management of unspecified encephalopathy, there is that etiology was not clear, it was also it was from UTI, the urine culture was growing gram-positive cocci, she was empirically started on Cipro but the final urine culture was Enterococcus faecalis with significant colonic count, the bacteria is resistant to Cipro but sensitive to ampicillin. She also developed COPD exacerbation but this was managed with inhaled steroid Reason For Visit: ALTERED MENTAL STATUS,UTI Physical Exam Vital Signs: Temp Pulse Resp BP Pulse Ox 98.0 F 85 16 122/58 L 95 08/27/17 19:22 08/27/17 19:22 08/27/17 19:22 08/27/17 19:22 08/27/17 19:22 Intake & Output 08/26/17 08/27/17 08/28/17 06:59 06:59 06:59 Intake Total 610 Balance 610 General appearance: PRESENT: no acute distress, well-developed, well-nourished Head exam: PRESENT: atraumatic, normocephalic Eye exam: PRESENT: conjunctiva pink, EOMI, PERRLA Ear exam: PRESENT: normal external ear exam Mouth exam: PRESENT: moist, tongue midline Neck exam: PRESENT: full ROM Respiratory exam: PRESENT: wheezes Cardiovascular exam: PRESENT: RRR, +S1, +S2 Pulses: PRESENT: normal dorsalis pedis pul, +2 pedal pulses bilateral Vascular exam: PRESENT: normal capillary refill GI/Abdominal exam: PRESENT: normal bowel sounds, soft Rectal exam: PRESENT: deferred Neurological exam: PRESENT: alert, awake, oriented to person, oriented to place , oriented to time, oriented to situation, CN II-XII grossly intact Psychiatric exam: PRESENT: appropriate affect, normal mood Skin exam: PRESENT: dry, intact, warm. ABSENT: cyanosis, rash Results Impressions: Chest X-Ray 08/24/17 16:34 IMPRESSION: NO ACUTE RADIOGRAPHIC FINDING IN THE CHEST. Head CT 08/24/17 16:35 IMPRESSION: No significant interval change. No acute findings. Other findings as noted above. EVIDENCE OF ACUTE STROKE: NO. Assessment & Plan - Diagnosis (1) Urinary tract infection due to Enterococcus Is this a current diagnosis for this admission?: Yes Plan: She has UTI due to E faecalis, Cipro is discontinued, start IV ampicillin, (2) Chronic obstructive pulmonary disease Qualifiers: COPD type: unspecified COPD Qualified Code(s): J44.9 - Chronic obstructive pulmonary disease, unspecified Is this a current diagnosis for this admission?: Yes (3) Urinary tract infection Qualifiers: Urinary tract infection type: site unspecified Hematuria presence: without hematuria Qualified Code(s): N39.0 - Urinary tract infection, site not specified Is this a current diagnosis for this admission?: Yes (4) Diabetes mellitus type 2 in obese Is this a current diagnosis for this admission?: Yes (5) Metabolic encephalopathy Is this a current diagnosis for this admission?: Yes Plan: Patient is confusion is most likely from metabolic encephalopathy due to combination of E faecalis UTI and acute COPD. She is more appropriate today she is not confused (6) COPD with acute exacerbation Is this a current diagnosis for this admission?: Yes Plan: Patient was started on trelegy
[2017-08-28] MEDS ORDERED: AMPICILLIN SOD INJ 1 GM VIAL IV PRN (04:40)
[2017-08-28] MEDS: LANSOPRAZOLE 30 MG TAB.RAP.DR PO SCH (05:42)
[2017-08-28] MEDS ORDERED: NORMAL SALINE IV SCH (06:00)
[2017-08-28] MEDS ORDERED: AMPICILLIN SODIUM IV SCH (06:00)
[2017-08-28] MEDS: PIOGLITAZONE HCL 30 MG TABLET PO SCH (07:18)
[2017-08-28] MEDS: FLUTICASONE/UMECLIDIN/VILANTER 100-62.5-25 MCG/DOSE IH SCH (09:08)
--- NOTE | 2017-08-28 11:13 | PDOC PROGRESS REPORT ---
Subjective Progress Note for:: 08/28/17 Subjective:: She was by the bedside, she is responding to treatment Reason For Visit: ALTERED MENTAL STATUS,UTI Physical Exam Vital Signs: Temp Pulse Resp BP Pulse Ox 98.5 F 77 16 130/63 H 95 08/28/17 03:05 08/28/17 07:00 08/28/17 03:05 08/28/17 03:05 08/28/17 03:05 Intake & Output 08/27/17 08/28/17 08/29/17 06:59 06:59 06:59 Intake Total 670 Output Total 0 Balance 670 Weight 104.1 kg General appearance: PRESENT: no acute distress Head exam: PRESENT: atraumatic, normocephalic Eye exam: PRESENT: conjunctiva pink, EOMI, PERRLA Ear exam: PRESENT: normal external ear exam Mouth exam: PRESENT: moist, tongue midline Neck exam: PRESENT: full ROM Respiratory exam: PRESENT: clear to auscultation [place] Cardiovascular exam: PRESENT: RRR, +S1, +S2 Pulses: PRESENT: normal dorsalis pedis pul, +2 pedal pulses bilateral Vascular exam: PRESENT: normal capillary refill GI/Abdominal exam: PRESENT: normal bowel sounds, soft Rectal exam: PRESENT: deferred Neurological exam: PRESENT: alert, awake, oriented to person, oriented to place , oriented to time, oriented to situation, CN II-XII grossly intact Psychiatric exam: PRESENT: appropriate affect, normal mood Skin exam: PRESENT: dry, intact, warm Results Impressions: Chest X-Ray 08/24/17 16:34 IMPRESSION: NO ACUTE RADIOGRAPHIC FINDING IN THE CHEST. Head CT 08/24/17 16:35 IMPRESSION: No significant interval change. No acute findings. Other findings as noted above. EVIDENCE OF ACUTE STROKE: NO. Assessment & Plan - Diagnosis (1) Urinary tract infection due to Enterococcus Is this a current diagnosis for this admission?: Yes (2) Chronic obstructive pulmonary disease Qualifiers: COPD type: unspecified COPD Qualified Code(s): J44.9 - Chronic obstructive pulmonary disease, unspecified Is this a current diagnosis for this admission?: Yes (3) Urinary tract infection Qualifiers: Urinary tract infection type: site unspecified Hematuria presence: without hematuria Qualified Code(s): N39.0 - Urinary tract infection, site not specified Is this a current diagnosis for this admission?: Yes (4) Diabetes mellitus type 2 in obese Is this a current diagnosis for this admission?: Yes (5) Metabolic encephalopathy Is this a current diagnosis for this admission?: Yes (6) COPD with acute exacerbation Is this a current diagnosis for this admission?: Yes - Plan Summary Plan Summary: Continue treatment with IV ampicillin
[2017-08-28] MEDS: INSULIN LISPRO 100 UNIT/ML 3 ML VIAL SUBCUT PRN ×3 (12:06→23:07)
[2017-08-28] MEDS: AMPICILLIN SODIUM 1 GM in NORMAL SALINE 50 ML IV SCH ×3 (12:06→23:04)
[2017-08-28] MEDS: METOPROLOL SUCCINATE 50 MG TAB.SR.24H PO SCH (12:06)
[2017-08-28] MEDS: DULOXETINE HCL 30 MG CAPSULE.DR PO SCH (16:55)
[2017-08-29] MEDS ORDERED: ACETAMINOPHEN 325 MG TABLET PO PRN (00:44)
[2017-08-29] MEDS: LANSOPRAZOLE 30 MG TAB.RAP.DR PO SCH (06:22)
[2017-08-29] MEDS: AMPICILLIN SODIUM 1 GM in NORMAL SALINE 50 ML IV SCH ×4 (06:23→23:10)
[2017-08-29] MEDS: FLUTICASONE/UMECLIDIN/VILANTER 100-62.5-25 MCG/DOSE IH SCH (09:02)
[2017-08-29] MEDS: PIOGLITAZONE HCL 30 MG TABLET PO SCH (09:02)
[2017-08-29] MEDS: SITAGLIPTIN PHOSPHATE 50 MG TABLET PO SCH (09:02)
[2017-08-29] MEDS: DULOXETINE HCL 30 MG CAPSULE.DR PO SCH ×2 (09:02→17:41)
--- NOTE | 2017-08-29 12:22 | PDOC PROGRESS REPORT ---
Subjective Progress Note for:: 08/29/17 Subjective:: She was seen by the bedside, she was admitted for the management of metabolic encephalopathy secondary to enterococcus faecalis UTI, presently on IV ampicillin Reason For Visit: ALTERED MENTAL STATUS,UTI Physical Exam Vital Signs: Temp Pulse Resp BP Pulse Ox 97.9 F 80 18 131/78 H 94 08/29/17 10:55 08/29/17 10:55 08/29/17 10:55 08/29/17 10:55 08/29/17 10:55 Intake & Output 08/28/17 08/29/17 08/30/17 06:59 06:59 06:59 Intake Total 670 1617 Output Total 0 0 Balance 670 1617 Weight 104.1 kg 104.2 kg General appearance: PRESENT: no acute distress Eye exam: PRESENT: PERRLA Mouth exam: PRESENT: neck supple Respiratory exam: PRESENT: clear to auscultation [place] Cardiovascular exam: PRESENT: +S1, +S2 GI/Abdominal exam: PRESENT: soft Neurological exam: PRESENT: alert Results Impressions: Chest X-Ray 08/24/17 16:34 IMPRESSION: NO ACUTE RADIOGRAPHIC FINDING IN THE CHEST. Head CT 08/24/17 16:35 IMPRESSION: No significant interval change. No acute findings. Other findings as noted above. EVIDENCE OF ACUTE STROKE: NO. Assessment & Plan - Diagnosis (1) Urinary tract infection due to Enterococcus Is this a current diagnosis for this admission?: Yes (2) Chronic obstructive pulmonary disease Qualifiers: COPD type: unspecified COPD Qualified Code(s): J44.9 - Chronic obstructive pulmonary disease, unspecified Is this a current diagnosis for this admission?: Yes (3) Urinary tract infection Qualifiers: Urinary tract infection type: site unspecified Hematuria presence: without hematuria Qualified Code(s): N39.0 - Urinary tract infection, site not specified Is this a current diagnosis for this admission?: Yes (4) Diabetes mellitus type 2 in obese Is this a current diagnosis for this admission?: Yes (5) Metabolic encephalopathy Is this a current diagnosis for this admission?: Yes (6) COPD with acute exacerbation Is this a current diagnosis for this admission?: Yes
[2017-08-29] MEDS: METOPROLOL SUCCINATE 50 MG TAB.SR.24H PO SCH (12:27)
[2017-08-29] MEDS: INSULIN LISPRO 100 UNIT/ML 3 ML VIAL SUBCUT PRN (23:10)
[2017-08-30] MEDS: AMPICILLIN SODIUM 1 GM in NORMAL SALINE 50 ML IV SCH ×4 (06:13→23:20)
[2017-08-30] MEDS: LANSOPRAZOLE 30 MG TAB.RAP.DR PO SCH (06:13)
[2017-08-30] MEDS: INSULIN LISPRO 100 UNIT/ML 3 ML VIAL SUBCUT PRN ×4 (08:16→22:06)
[2017-08-30] MEDS: PIOGLITAZONE HCL 30 MG TABLET PO SCH (08:16)
[2017-08-30] MEDS: SITAGLIPTIN PHOSPHATE 50 MG TABLET PO SCH (09:29)
[2017-08-30] MEDS: DULOXETINE HCL 30 MG CAPSULE.DR PO SCH ×2 (09:29→17:50)
[2017-08-30] MEDS: FLUTICASONE/UMECLIDIN/VILANTER 100-62.5-25 MCG/DOSE IH SCH (09:30)
[2017-08-30] MEDS: METOPROLOL SUCCINATE 50 MG TAB.SR.24H PO SCH (12:55)
--- NOTE | 2017-08-30 19:21 | PDOC PROGRESS REPORT ---
Subjective Progress Note for:: 08/30/17 Subjective:: Patient was seen by the bedside, she has no new complaints on IV antibiotic Reason For Visit: ALTERED MENTAL STATUS,UTI Physical Exam Vital Signs: Temp Pulse Resp BP Pulse Ox 98.0 F 70 18 113/60 98 08/30/17 15:22 08/30/17 15:22 08/30/17 15:22 08/30/17 15:22 08/30/17 15:22 Intake & Output 08/29/17 08/30/17 08/31/17 06:59 06:59 06:59 Intake Total 1617 756 970 Output Total 0 Balance 1617 756 970 Weight 104.2 kg 103.9 kg General appearance: PRESENT: no acute distress, well-developed, well-nourished Head exam: PRESENT: atraumatic, normocephalic Eye exam: PRESENT: conjunctiva pink, EOMI, PERRLA Ear exam: PRESENT: normal external ear exam Mouth exam: PRESENT: moist, tongue midline Neck exam: PRESENT: full ROM Respiratory exam: PRESENT: clear to auscultation [place] Cardiovascular exam: PRESENT: RRR, +S1 Pulses: PRESENT: normal dorsalis pedis pul, +2 pedal pulses bilateral Vascular exam: PRESENT: normal capillary refill GI/Abdominal exam: PRESENT: normal bowel sounds, soft Rectal exam: PRESENT: deferred Neurological exam: PRESENT: alert, awake, oriented to person, oriented to place , oriented to time, oriented to situation, CN II-XII grossly intact Psychiatric exam: PRESENT: appropriate affect, normal mood Skin exam: PRESENT: dry, intact, warm Results Impressions: Chest X-Ray 08/24/17 16:34 IMPRESSION: NO ACUTE RADIOGRAPHIC FINDING IN THE CHEST. Head CT 08/24/17 16:35 IMPRESSION: No significant interval change. No acute findings. Other findings as noted above. EVIDENCE OF ACUTE STROKE: NO. Assessment & Plan - Diagnosis (1) Urinary tract infection due to Enterococcus Is this a current diagnosis for this admission?: Yes (2) Chronic obstructive pulmonary disease Qualifiers: COPD type: unspecified COPD Qualified Code(s): J44.9 - Chronic obstructive pulmonary disease, unspecified Is this a current diagnosis for this admission?: Yes (3) Urinary tract infection Qualifiers: Urinary tract infection type: site unspecified Hematuria presence: without hematuria Qualified Code(s): N39.0 - Urinary tract infection, site not specified Is this a current diagnosis for this admission?: Yes (4) Diabetes mellitus type 2 in obese Is this a current diagnosis for this admission?: Yes (5) Metabolic encephalopathy Is this a current diagnosis for this admission?: Yes (6) COPD with acute exacerbation Is this a current diagnosis for this admission?: Yes
[2017-08-31] MEDS: AMPICILLIN SODIUM 1 GM in NORMAL SALINE 50 ML IV SCH ×4 (05:12→23:41)
[2017-08-31] MEDS: LANSOPRAZOLE 30 MG TAB.RAP.DR PO SCH (05:12)
[2017-08-31] MEDS: INSULIN LISPRO 100 UNIT/ML 3 ML VIAL SUBCUT PRN ×4 (08:41→22:23)
[2017-08-31] MEDS: PIOGLITAZONE HCL 30 MG TABLET PO SCH (08:42)
[2017-08-31] MEDS: DULOXETINE HCL 30 MG CAPSULE.DR PO SCH ×2 (09:33→17:24)
[2017-08-31] MEDS: SITAGLIPTIN PHOSPHATE 50 MG TABLET PO SCH (09:33)
[2017-08-31] MEDS: FLUTICASONE/UMECLIDIN/VILANTER 100-62.5-25 MCG/DOSE IH SCH (09:33)
[2017-08-31] MEDS: METOPROLOL SUCCINATE 50 MG TAB.SR.24H PO SCH (12:02)
--- NOTE | 2017-08-31 21:44 | PDOC PROGRESS REPORT ---
Subjective Progress Note for:: 08/31/17 Subjective:: She was seen by the bedside she has E faecalis UTI, presently on IV ampicillin, she will be going home tomorrow Reason For Visit: ALTERED MENTAL STATUS,UTI Physical Exam Vital Signs: Temp Pulse Resp BP Pulse Ox 97.9 F 76 16 128/70 H 95 08/31/17 15:42 08/31/17 19:00 08/31/17 15:42 08/31/17 15:42 08/31/17 15:42 Intake & Output 08/30/17 08/31/17 09/01/17 06:59 06:59 06:59 Intake Total 756 1870 640 Output Total 400 Balance 756 1870 240 Weight 103.9 kg 102.1 kg General appearance: PRESENT: no acute distress, well-developed, well-nourished Head exam: PRESENT: atraumatic, normocephalic Eye exam: PRESENT: conjunctiva pink, EOMI, PERRLA Ear exam: PRESENT: normal external ear exam Mouth exam: PRESENT: moist, tongue midline Neck exam: PRESENT: full ROM Respiratory exam: PRESENT: clear to auscultation [place] Cardiovascular exam: PRESENT: RRR, +S1, +S2 Pulses: PRESENT: normal dorsalis pedis pul, +2 pedal pulses bilateral Vascular exam: PRESENT: normal capillary refill GI/Abdominal exam: PRESENT: normal bowel sounds, soft Rectal exam: PRESENT: deferred Neurological exam: PRESENT: alert, awake, oriented to person, oriented to place , oriented to time, oriented to situation, CN II-XII grossly intact Psychiatric exam: PRESENT: appropriate affect, normal mood Skin exam: PRESENT: dry, intact, warm Results Impressions: Chest X-Ray 08/24/17 16:34 IMPRESSION: NO ACUTE RADIOGRAPHIC FINDING IN THE CHEST. Head CT 08/24/17 16:35 IMPRESSION: No significant interval change. No acute findings. Other findings as noted above. EVIDENCE OF ACUTE STROKE: NO. Assessment & Plan - Diagnosis (1) Urinary tract infection due to Enterococcus Is this a current diagnosis for this admission?: Yes (2) Chronic obstructive pulmonary disease Qualifiers: COPD type: unspecified COPD Qualified Code(s): J44.9 - Chronic obstructive pulmonary disease, unspecified Is this a current diagnosis for this admission?: Yes (3) Urinary tract infection Qualifiers: Urinary tract infection type: site unspecified Hematuria presence: without hematuria Qualified Code(s): N39.0 - Urinary tract infection, site not specified Is this a current diagnosis for this admission?: Yes (4) Diabetes mellitus type 2 in obese Is this a current diagnosis for this admission?: Yes (5) Metabolic encephalopathy Is this a current diagnosis for this admission?: Yes (6) COPD with acute exacerbation Is this a current diagnosis for this admission?: Yes - Plan Summary Plan Summary: Patient seen by the bedside no new complaints
[2017-09-01] MEDS: AMPICILLIN SODIUM 1 GM in NORMAL SALINE 50 ML IV SCH ×3 (05:08→17:19)
[2017-09-01] MEDS: LANSOPRAZOLE 30 MG TAB.RAP.DR PO SCH (05:08)
[2017-09-01] MEDS: PIOGLITAZONE HCL 30 MG TABLET PO SCH (08:17)
[2017-09-01] MEDS: INSULIN LISPRO 100 UNIT/ML 3 ML VIAL SUBCUT PRN ×3 (08:17→16:35)
[2017-09-01] MEDS: SITAGLIPTIN PHOSPHATE 50 MG TABLET PO SCH (09:18)
[2017-09-01] MEDS: DULOXETINE HCL 30 MG CAPSULE.DR PO SCH ×2 (09:19→17:19)
[2017-09-01] MEDS: FLUTICASONE/UMECLIDIN/VILANTER 100-62.5-25 MCG/DOSE IH SCH (09:19)
[2017-09-01] MEDS: METOPROLOL SUCCINATE 50 MG TAB.SR.24H PO SCH (12:21)
--- NOTE | 2017-09-01 14:06 | PDOC DISCHARGE SUMMARY ---
General - Admit/Disc Date/PCP Admission Date/Primary Care Provider: 08/27/17 12:29 TOÑA MCLEAN MD Discharge Date: 09/01/17 - Discharge Diagnosis (1) Urinary tract infection due to Enterococcus Is this a current diagnosis for this admission?: Yes (2) Chronic obstructive pulmonary disease Is this a current diagnosis for this admission?: Yes (3) Urinary tract infection Is this a current diagnosis for this admission?: Yes (4) Diabetes mellitus type 2 in obese Is this a current diagnosis for this admission?: Yes (5) Metabolic encephalopathy Is this a current diagnosis for this admission?: Yes (6) COPD with acute exacerbation Is this a current diagnosis for this admission?: Yes - Additional Information Prescriptions: Fluticasone/Umeclidin/Vilanter [Trelegy 100-62.5-25 Mcg Ellipta 14 Dose/Dpi] 1 inh IH DAILY #4 inhaler Home Medications: Acetaminophen with Codeine [Acetaminophen-Cod #3 Tablet] 1 tab PO Q8 07/21/17 Canagliflozin [Invokana] 300 mg PO DAILY 07/21/17 Duloxetine HCl [Cymbalta] 60 mg PO Q12 07/21/17 Gabapentin [Neurontin] 1,200 mg PO Q8 07/21/17 Linagliptin [Tradjenta] 5 mg PO DAILY 07/21/17 Metoprolol Succinate [Toprol XL 100 mg Tablet] 100 mg PO DAILY 07/21/17 Omeprazole 40 mg PO DAILY 07/21/17 Pioglitazone HCl [Actos] 30 mg PO QAM 07/21/17 Insulin Detemir [Levemir Flextouch] 50 units SUBCUT QAM 08/24/17 Insulin Detemir [Levemir Flextouch] 55 unit SQ QPM 08/24/17 Acetaminophen [Tylenol 325 mg Tablet] 650 mg PO Q6HP PRN tablet 09/01/17 Albuterol Sulfate [Proair HFA Inhalation Aerosol 8.5 gm MDI] 2 puff IH Q4HP PRN hfa.aer.ad 09/01/17 Dextrose 50%-Water [Dextrose Inj 50% Syringe (25 gm/50 ml)] 25 gm IV PRN PRN disp.syrin 09/01/17 Fluticasone/Umeclidin/Vilanter [Trelegy 100-62.5-25 Mcg Ellipta 14 Dose/Dpi] 1 inh IH DAILY #4 inhaler 09/01/17 History of Present Illness History of Present Illness: DARCY NAVA is a 72 year old female, Patient is well-known to me she has a history of type 2 diabetes mellitus, chronic obstructive pulmonary disease she was brought to the emergency room for evaluation of acute confusion, the resident physician Dr. Kingsley called my attention to the patient yesterday evening, when I saw her she was confused but she knew who I was she called out my name, but there are times she was expressing unintelligible words.The CAT scan of the head that was done did not show any acute pathology, metabolic panel was normal there is no metabolic explanation for the acute confusion. She was also evaluated in the emergency room by the psychologist, the psychologist does not think she has psychosis, she has bacteriuria that suggest UTI ,not sure if the UTI is the etiology of the acute confusion Hospital Course Hospital Course: Patient was admitted initially for observation and management of acute confusion subsequently she was transitioned to inpatient care, urine culture grew Enterococcus faecalis with significant count, she was initially empirically treated with IV Levaquin, the bacteria is resistant to Levaquin, the antibiotic was changed to IV ampicillin with good result. She regained full cognition, alert and oriented throughout the rest of hospital stay. When she presented to the emergency room, psychosis was suspected, she was seen by psychiatrist, it was felt that she was not psychotic. She has COPD with audible wheeze, she was treated with trelegy, she seemed to respond very well to the medication. Physical Exam Vital Signs: Temp Pulse Resp BP Pulse Ox 98.2 F 72 14 133/74 H 94 09/01/17 11:37 09/01/17 11:37 09/01/17 11:37 09/01/17 11:37 09/01/17 11:37 Intake & Output 08/31/17 09/01/17 09/02/17 06:59 06:59 06:59 Intake Total 1870 740 Output Total 1000 Balance 1870 -260 Weight 102.1 kg 102.1 kg General appearance: PRESENT: no acute distress, well-developed, well-nourished Head exam: PRESENT: atraumatic, normocephalic Eye exam: PRESENT: conjunctiva pink, EOMI, PERRLA Ear exam: PRESENT: normal external ear exam Mouth exam: PRESENT: moist, tongue midline Neck exam: PRESENT: full ROM Respiratory exam: PRESENT: clear to auscultation [place] Cardiovascular exam: PRESENT: RRR, +S1, +S2 Pulses: PRESENT: normal dorsalis pedis pul, +2 pedal pulses bilateral Vascular exam: PRESENT: normal capillary refill GI/Abdominal exam: PRESENT: normal bowel sounds, soft Rectal exam: PRESENT: deferred Neurological exam: PRESENT: alert, awake, oriented to person, oriented to place , oriented to time, oriented to situation, CN II-XII grossly intact Psychiatric exam: PRESENT: appropriate affect, normal mood Skin exam: PRESENT: dry, intact, warm Results Impressions: Chest X-Ray 08/24/17 16:34 IMPRESSION: NO ACUTE RADIOGRAPHIC FINDING IN THE CHEST. Head CT 08/24/17 16:35 IMPRESSION: No significant interval change. No acute findings. Other findings as noted above. EVIDENCE OF ACUTE STROKE: NO. Qualifiers - * PATIENT BEING DISCHARGED WITH ANY OF THE FOLLOWING DIAGNOSIS: No
[2017-09-01 14:33] LABS: ABSOLUTE BASOPHILS # (AUTO) 0.1 10^3/uL (0.0-0.2); ABSOLUTE EOSINOPHILS # (AUTO) 0.1 10^3/uL (0.0-0.6); ABSOLUTE LYMPHOCYTES (AUTO) 1.8 10^3/uL (0.5-4.7); ABSOLUTE MONOCYTES (AUTO) 0.7 10^3/uL (0.1-1.4); ABSOLUTE NEUT (AUTO) 3.2 10^3/uL (1.7-8.2); BASOPHILS % (AUTO) 1.2 % (0-2); EOSINOPHILS % (AUTO) 2.1 % (0-6); HEMATOCRIT 39.9 % (36.0-47.0); HEMOGLOBIN 13.4 g/dL (12.0-15.5); LYMPHOCYTES % (AUTO) 30.6 % (13-45); MEAN CORPUSCULAR HGB CONC 33.6 g/dL (32.0-36.0); MEAN CORPUSCULAR VOLUME 92 fl (80-97); MONOCYTES % (AUTO) 11.6 % (3-13); PLATELET COUNT 254 10^3/uL (150-450); RED BLOOD COUNT 4.33 10^6/uL (3.72-5.28); RED CELL DISTRIBUTION WIDTH 15.6 % (11.5-14.0); SEGMENTED NEUTROPHILS % (AUTO) 54.5 % (42-78); TOTAL CELLS COUNTED % (AUTO) 100 %; WHITE BLOOD COUNT 5.8 10^3/uL (4.0-10.5)
[2017-09-01 15:01] LABS: ALANINE AMINOTRANSFERASE 32 U/L (9-52); ALBUMIN 3.1 g/dL (3.5-5.0); ALKALINE PHOSPHATASE 72 U/L (38-126); ANION GAP 9 (5-19); ASPARTATE AMINO TRANSFERASE 34 U/L (14-36); BILIRUBIN,DIRECT 0.4 mg/dL (0.0-0.4); BILIRUBIN,TOTAL 0.8 mg/dL (0.2-1.3); BLOOD UREA NITROGEN 8 mg/dL (7-20); CALCIUM 9.1 mg/dL (8.4-10.2); CARBON DIOXIDE 27 mmol/L (22-30); CHLORIDE 107 mmol/L (98-107); GLUCOSE 201 mg/dL (75-110); POTASSIUM 3.5 mmol/L (3.6-5.0); SODIUM 142.8 mmol/L (137-145)
[2017-09-01 16:51] VITALS: BP 103/59
== END 2017-09-01 19:54 | disposition home or self-care (01) | DRG 689 ==
LOC: ER 15:56 → EH 23:35 → 3N 08-25 16:34 → OBSVTOIN 08-27 12:29
PROVIDERS: ADMIT Internal Medicine; ATTEND Internal Medicine
DX: N39.0 Urinary tract infection, site not specified (principal); G93.40 Encephalopathy, unspecified; N18.6 End stage renal disease; I12.0 Hypertensive chronic kidney disease with stage 5 chronic kidney disease or end stage renal disease; J44.1 Chronic obstructive pulmonary disease with (acute) exacerbation; Z68.41 Body mass index [BMI] 40.0-44.9, adult; E11.22 Type 2 diabetes mellitus with diabetic chronic kidney disease; B95.2 Enterococcus as the cause of diseases classified elsewhere; M19.90 Unspecified osteoarthritis, unspecified site; R41.82 Altered mental status, unspecified; E66.9 Obesity, unspecified; Z79.4 Long term (current) use of insulin; Z79.899 Other long term (current) drug therapy
CPT/HCPCS: 36415; 51701; 70450; 71045; 80053; 80307; 81001; 82550; 82803; 82962; 83605; 84484; 85025; 85610; 87040; 87086; 87088; 87186; 93005; 93010; 96365; 96372; 96375; 99285; G0378; J0290; J0696; J1200; J1630; J1815; J2060; J3490

== ENCOUNTER 2017-09-05 13:48 | Observation (INO) | payer MEDICARE, MEDICAID ==
--- NOTE | 2017-09-05 15:10 | ER Document Report ---
ED Medical Screen (RME) - General Chief Complaint: Fall Stated Complaint: FALL Time Seen by Provider: 09/05/17 14:55 Mode of Arrival: Wheelchair Information source: Patient Notes: 72-year-old female presents with multiple falls confusion, when I entered the room patient is drinking out of her shoe stating that she is finishing the last of her chocolate milk I have greeted and performed a rapid initial assessment of this patient. A comprehensive ED assessment and evaluation of the patient, analysis of test results and completion of the medical decision making process will be conducted by additional ED providers. PHYSICAL EXAMINATION: GENERAL: confused HEAD: Atraumatic, normocephalic. EYES: Pupils equal round extraocular movements intact, conjunctiva are normal. ENT: Nares patent NECK: Normal range of motion LUNGS: No respiratory distress Musculoskeletal: Normal range of motion NEUROLOGICAL: Normal speech, normal gait. PSYCH: confusion SKIN: Warm, Dry, normal turgor, no rashes or lesions noted. TRAVEL OUTSIDE OF THE [place] IN LAST 30 DAYS: No - Related Data Allergies/Adverse Reactions: propoxyphene [From Darvocet-N] Allergy (Verified 04/21/17 06:10) Delirium tapentadol [From Nucynta] Allergy (Verified 04/21/17 06:10) Delirium Past Medical History - Past Medical History Cardiac Medical History: Reports: Hx DVT, Hx Hypertension - ON MEDS Denies: Hx Atrial Fibrillation, Hx Congestive Heart Failure, Hx Coronary Artery Disease, Hx Heart Attack, Hx Hypercholesterolemia, Hx Peripheral Vascular Disease, Hx Pulmonary Embolism, Hx Heart Murmur Pulmonary Medical History: Reports: Hx Bronchitis, Hx COPD - USES NEB AND INHALER, Hx Pneumonia - 2 YRS AGO Denies: Hx Asthma, Hx Respiratory Failure, Hx Sleep Apnea, Hx Tuberculosis Neurological Medical History: Denies: Hx Cerebrovascular Accident, Hx Seizures Endocrine Medical History: Reports: Hx Diabetes Mellitus Type 2. Denies: Hx Graves' Disease, Hx Hyperthyroidism, Hx Hypothyroidism Renal/ Medical History: Reports: Hx End Stage Renal Disease - Stage 3- NO DIALYSIS. Denies: Hx Kidney Stones, Hx Ovarian Cysts, Hx Peritoneal Dialysis, Hx Pelvic Inflammatory Disease Malignancy Medical History: Reports: Hx Ovarian Cancer - PRE-CANCEROUS, TOTAL HYST, QUINN SALPINGOOPHORECTOMY. Denies: Hx Breast Cancer, Hx Cervical Cancer, Hx Leukemia, Hx Lung Cancer GI Medical History: Reports: Hx Hiatal Hernia. Denies: Hx Crohn's Disease, Hx Gastroesophageal Reflux Disease, Hx Irritable Bowel, Hx Liver Failure, Hx Pancreatitis, Hx Ulcer Musculoskeltal Medical History: Reports Hx Arthritis, Denies Hx Fibromyalgia, Denies Hx Multiple Sclerosis, Denies Hx Muscular Dystrophy Psychiatric Medical History: Reports: Hx Depression Denies: Hx Bipolar Disorder, Hx Dementia, Hx Post Traumatic Stress Disorder, Hx Schizophrenia Traumatic Medical History: Denies: Hx Fractures Infectious Medical History: Denies: Hx HIV Past Surgical History: Reports: Hx Abdominal Surgery, Hx Appendectomy, Hx Bowel Surgery - EX LAP, ILEOSTOMY, Hx Colostomy - History of colostomy revision , History of resection of the colon, Hx Hysterectomy, Hx Kidney (Renal Surgery) - Right kidney, Hx Orthopedic Surgery - left shoulder, Other - Recent history of extended right hemicolectomy with end ileostomy bag, rvsd. Denies: Hx Section, Hx Cholecystectomy, Hx Coronary Artery Bypass Graft, Hx Gastric Bypass Surgery, Hx Herniorrhaphy, Hx Mastectomy, Hx Pacemaker, Hx Tonsillectomy, Hx Tubal Ligation - Immunizations Immunizations up to date: Yes Hx Diphtheria, Pertussis, Tetanus Vaccination: Yes History of Influenza Vaccine for 12/2016 - 05/2017 Season: Yes Influenza Administration Date for 12/2016 - 05/2017 Season: 04/07/17 Physical Exam - Vital signs Vitals: Temp Pulse Resp BP Pulse Ox 98.7 F 72 18 120/79 95 09/05/17 14:05 09/05/17 14:05 09/05/17 14:05 09/05/17 14:05 09/05/17 14:05 Course - Vital Signs Vital signs: Temp Pulse Resp BP Pulse Ox 98.7 F 72 18 120/79 95 09/05/17 14:05 09/05/17 14:05 09/05/17 14:05 09/05/17 14:05 09/05/17 14:05 Doctor's Discharge - Discharge Referrals: TOÑA MCLEAN MD [Primary Care Provider] - Follow up as needed
--- NOTE | 2017-09-05 16:11 | RADIOLOGY REPORT (SQ) ---
EXAM DESCRIPTION: CT HEAD WITHOUT COMPLETED DATE/TIME: 09/05/2017 3:57 pm REASON FOR STUDY: confusion COMPARISON: 08/24/2017 TECHNIQUE: Axial images acquired through the brain without intravenous contrast. Images reviewed wi th bone, brain and subdural windows. Additional sagittal and coronal reconstructions were generated. Images stored on PACS. All CT scanners at this facility use dose modulation, iterative reconstruction, and/or weight based d osing when appropriate to reduce radiation dose to as low as reasonably achievable (ALARA). [facility]: Dose Right [facility]: CareDose [facility]: Dose Right [facility]: Teradose 4D [facility]: [employer] RADIATION DOSE: CT Rad equipment meets quality standard of care and radiation dose reduction techniq ues were employed. CTDIvol: 53.2 mGy. DLP: 1017 mGy-cm. mGy. LIMITATIONS: None. FINDINGS: VENTRICLES: Normal size and contour. CEREBRUM: No masses. No hemorrhage. No midline shift. No evidence for acute infarction. Normal gra y/white matter differentiation. No areas of low density in the white matter. CEREBELLUM: No masses. No hemorrhage. No alteration of density. No evidence for acute infarction. EXTRAAXIAL SPACES: Mild prominence related to parenchymal involution/ atrophy. ORBITS AND GLOBE: No intra- or extraconal masses. Normal contour of globe without masses. CALVARIUM: No fracture. PARANASAL SINUSES: No fluid or mucosal thickening. SOFT TISSUES: No mass or hematoma. OTHER: No other significant finding. IMPRESSION: No acute abnormality. EVIDENCE OF ACUTE STROKE: NO. COMMENT: Quality ID # [id number]: Final reports with documentation of one or more dose reduction techniques (e.g., Automated exposure control, adjustment of the mA and/or kV according to patient size, use of iterative reconstruction technique) TECHNICAL DOCUMENTATION: JOB ID: [id number] [employer]- All Rights Reserved Reading location - IP/workstation name: [email or web address]
--- NOTE | 2017-09-05 16:20 | RADIOLOGY REPORT (SQ) ---
EXAM DESCRIPTION: CHEST 2 VIEWS COMPLETED DATE/TIME: 09/05/2017 3:55 pm REASON FOR STUDY: confusion COMPARISON: 2017 TECHNIQUE: Frontal and lateral radiographic views of the chest acquired. NUMBER OF VIEWS: Two view. LIMITATIONS: None. FINDINGS: LUNGS AND PLEURA: No opacities, masses or pneumothorax. No pleural effusion. MEDIASTINUM AND HILAR STRUCTURES: No masses or contour abnormalities. HEART AND VASCULAR STRUCTURES: Heart normal size. No evidence for failure. BONES: No acute findings. HARDWARE: None in the chest. OTHER: No other significant finding. IMPRESSION: NO SIGNIFICANT RADIOGRAPHIC FINDING IN THE CHEST. TECHNICAL DOCUMENTATION: JOB ID: [id number] [employer]- All Rights Reserved Reading location - IP/workstation name: [email or web address]
--- NOTE | 2017-09-05 16:25 | ER Document Report ---
ED Fall - General Chief Complaint: Fall Stated Complaint: FALL Time Seen by Provider: 09/05/17 14:55 Mode of Arrival: Wheelchair Information source: Patient Notes: 72-year-old female with past medical history as recorded a presents today stating that she has fallen around 3 times in the last 24 hours. Patient denies to me any headache, neck pain, chest pain, back pain, abdominal pain, or focal weakness or numbness. Patient lives alone. Patient states "I fall all the time". She states that her family came and called EMS given the bruises to arms. TRAVEL OUTSIDE OF THE [place] IN LAST 30 DAYS: No - HPI Occurred: Just prior to arrival Where: Home Context: Lost balance Associated symptoms: None Location of injury/pain: Other - See above Quality of pain: No pain Severity: Mild Pain Level: Denies - Related data Allergies/Adverse Reactions: propoxyphene [From Darvocet-N] Allergy (Verified 04/21/17 06:10) Delirium tapentadol [From Nucynta] Allergy (Verified 04/21/17 06:10) Delirium Past Medical History - General Information source: Patient - Social History Smoking Status: Unknown if Ever Smoked Cigarette use (# per day): No Chew tobacco use (# tins/day): No Smoking Education Provided: No Frequency of alcohol use: None Family History: COPD, DM, Malignancy - Brother with throat cancer, Other - Father with tuberculosis Patient has suicidal ideation: No Patient has homicidal ideation: No - Past Medical History Cardiac Medical History: Reports: Hx DVT, Hx Hypertension - ON MEDS Denies: Hx Atrial Fibrillation, Hx Congestive Heart Failure, Hx Coronary Artery Disease, Hx Heart Attack, Hx Hypercholesterolemia, Hx Peripheral Vascular Disease, Hx Pulmonary Embolism, Hx Heart Murmur Pulmonary Medical History: Reports: Hx Bronchitis, Hx COPD - USES NEB AND INHALER, Hx Pneumonia - 2 YRS AGO Denies: Hx Asthma, Hx Respiratory Failure, Hx Sleep Apnea, Hx Tuberculosis Neurological Medical History: Denies: Hx Cerebrovascular Accident, Hx Seizures Endocrine Medical History: Reports: Hx Diabetes Mellitus Type 2. Denies: Hx Graves' Disease, Hx Hyperthyroidism, Hx Hypothyroidism Renal/ Medical History: Reports: Hx End Stage Renal Disease - Stage 3- NO DIALYSIS. Denies: Hx Kidney Stones, Hx Ovarian Cysts, Hx Peritoneal Dialysis, Hx Pelvic Inflammatory Disease Malignancy Medical History: Reports: Hx Ovarian Cancer - PRE-CANCEROUS, TOTAL HYST, QUINN SALPINGOOPHORECTOMY. Denies: Hx Breast Cancer, Hx Cervical Cancer, Hx Leukemia, Hx Lung Cancer GI Medical History: Reports: Hx Hiatal Hernia. Denies: Hx Crohn's Disease, Hx Gastroesophageal Reflux Disease, Hx Irritable Bowel, Hx Liver Failure, Hx Pancreatitis, Hx Ulcer Musculoskeltal Medical History: Reports Hx Arthritis, Denies Hx Fibromyalgia, Denies Hx Multiple Sclerosis, Denies Hx Muscular Dystrophy Psychiatric Medical History: Reports: Hx Depression Denies: Hx Bipolar Disorder, Hx Dementia, Hx Post Traumatic Stress Disorder, Hx Schizophrenia Traumatic Medical History: Denies: Hx Fractures Infectious Medical History: Denies: Hx HIV Past Surgical History: Reports: Hx Abdominal Surgery, Hx Appendectomy, Hx Bowel Surgery - EX LAP, ILEOSTOMY, Hx Colostomy - History of colostomy revision , History of resection of the colon, Hx Hysterectomy, Hx Kidney (Renal Surgery) - Right kidney, Hx Orthopedic Surgery - left shoulder, Other - Recent history of extended right hemicolectomy with end ileostomy bag, rvsd. Denies: Hx Section, Hx Cholecystectomy, Hx Coronary Artery Bypass Graft, Hx Gastric Bypass Surgery, Hx Herniorrhaphy, Hx Mastectomy, Hx Pacemaker, Hx Tonsillectomy, Hx Tubal Ligation - Immunizations Immunizations up to date: Yes Hx Diphtheria, Pertussis, Tetanus Vaccination: Yes Hx Pneumococcal Vaccination: 05/27/13 Review of Systems - Review of Systems Constitutional: denies: Fever EENT: denies: Eye discharge, Nose discharge Cardiovascular: denies: Chest pain, Palpitations Respiratory: Cough. denies: Hemoptysis, Short of breath Gastrointestinal: denies: Vomiting Genitourinary: Dysuria Musculoskeletal: denies: Leg swelling Skin: Other - no hives. denies: Rash Neurological/Psychological: Other - no slurred speech -: Yes All other systems reviewed and negative Physical Exam - Vital signs Vitals: Temp Pulse Resp BP Pulse Ox 98.7 F 72 18 120/79 95 09/05/17 14:05 09/05/17 14:05 09/05/17 14:05 09/05/17 14:05 09/05/17 14:05 Notes: Reviewed vital signs and nursing note as charted by RN. CONSTITUTIONAL: Alert and oriented and responds appropriately to questions. Well -appearing; well-nourished HEAD: Normocephalic; atraumatic EYES: PERRL; no nystagmus ENT: Normal nose; no rhinorrhea; moist mucous membranes; pharynx without lesions noted NECK: Supple without meningismus; non-tender; no carotid bruits; no cervical lymphadenopathy, no masses CARD: Regular rate and rhythm; no murmurs, no clicks, no rubs, no gallops; symmetric distal pulses RESP: Normal chest excursion without splinting or tachypnea; breath sounds clear and equal bilaterally; scattered wheezing without rhonchi or rales ABD/GI: Normal bowel sounds; non-distended; soft, non-tender, no abdominal bruit ; no rebound, no guarding; no palpable organomegaly or masses BACK: The back appears normal and is non-tender to palpation along the midline spine EXT: Normal ROM in all joints; small laceration to the right elbow. Full range of motion of all extremities. Patient has some bruising to bilateral forearms without tenderness noted SKIN: See above NEURO: CN II through XII are intact. Moves all extremities equally; Motor and sensory function intact PSYCH: The patient's mood and manner are appropriate. Grooming and personal hygiene are appropriate. Course - Re-evaluation Re-evalutation: 09/05/17 16:25 Given the history and physical examination I have added a CT scan of the cervical spine to the imaging laboratory values that were ordered in triage. I have also added an x-ray of the right elbow. Patient states her tetanus is up- to-date. Patient is actually oriented 4. She currently denies any pain. Patient denies any focal weakness or numbness in my examination is in agreement. Patient does state that she has been having some dysuria so I will order a catheterized urine analysis. Patient will be reassessed. 09/05/17 17:07 EKG shows a heart of 66, normal sinus rhythm, left axis deviation, no obvious ST elevation or depression. 09/05/17 17:08 CT scan of the head shows no acute abnormalities. Chest x-ray shows normal heart, normal mediastinum, no fractures, normal lung ramos, no pneumothorax. 09/05/17 18:19 Urine analysis as recorded. No obvious intracranial abnormality. A gram of Rocephin and urine culture has been sent. Given the unsteady gait with the obvious urinary tract infection we will admit the patient for IV antibiotics and reassessment with fluid replenishment. - Vital Signs Vital signs: Temp Pulse Resp BP Pulse Ox 98.7 F 72 18 120/79 95 09/05/17 14:05 09/05/17 14:05 09/05/17 14:05 09/05/17 14:05 09/05/17 14:05 - Laboratory Result Diagrams: 09/05/17 17:01 09/05/17 17:01 Laboratory results interpreted by me: 09/05/17 09/05/17 09/05/17 16:13 17:01 17:01 RDW 15.4 H Est GFR (Non-Af Amer) 53 L Glucose 243 H POC Glucose 278 H Albumin 3.4 L Urine Glucose (UA) Urine Blood Ur Leukocyte Esterase 09/05/17 17:43 RDW Est GFR (Non-Af Amer) Glucose POC Glucose Albumin Urine Glucose (UA) >=500 H Urine Blood SMALL H Ur Leukocyte Esterase MODERATE H Discharge - Discharge Clinical Impression: Falls frequently Urinary tract infection Qualifiers: Urinary tract infection type: site unspecified Hematuria presence: without hematuria Qualified Code(s): N39.0 - Urinary tract infection, site not specified Condition: Fair Disposition: ADMITTED OBSERVATION Admitting Provider: [facility] Admitted: Telemetry Referrals: TOÑA MCLEAN MD [Primary Care Provider] - Follow up as needed
[2017-09-05 17:44] LABS: VENOUS BLOOD BASE EXCESS 1.1 mmol/L; VENOUS BLOOD HCO3 28.7 mmol/L (20-32); VENOUS BLOOD PCO2 57.7 mmHg (35-63); VENOUS BLOOD PH 7.31 (7.30-7.42)
[2017-09-05 17:46] LABS: ABSOLUTE BASOPHILS # (AUTO) 0.1 10^3/uL (0.0-0.2); ABSOLUTE EOSINOPHILS # (AUTO) 0.3 10^3/uL (0.0-0.6); ABSOLUTE LYMPHOCYTES (AUTO) 2.4 10^3/uL (0.5-4.7); ABSOLUTE MONOCYTES (AUTO) 0.7 10^3/uL (0.1-1.4); ABSOLUTE NEUT (AUTO) 5.8 10^3/uL (1.7-8.2); EOSINOPHILS % (AUTO) 3.2 % (0-6); HEMATOCRIT 40.3 % (36.0-47.0); HEMOGLOBIN 13.8 g/dL (12.0-15.5); INTERNATIONAL RATION (INR) 0.98; LYMPHOCYTES % (AUTO) 25.4 % (13-45); MEAN CORPUSCULAR HEMOGLOBIN 31.5 pg (27.0-33.4); MEAN CORPUSCULAR HGB CONC 34.2 g/dL (32.0-36.0); MEAN CORPUSCULAR VOLUME 92 fl (80-97); MONOCYTES % (AUTO) 7.7 % (3-13); PLATELET COUNT 305 10^3/uL (150-450); PROTHROMBIN TIME 13.5 SEC (11.4-15.4); RED BLOOD COUNT 4.38 10^6/uL (3.72-5.28); RED CELL DISTRIBUTION WIDTH 15.4 % (11.5-14.0); SEGMENTED NEUTROPHILS % (AUTO) 62.7 % (42-78); TOTAL CELLS COUNTED % (AUTO) 100 %; WHITE BLOOD COUNT 9.3 10^3/uL (4.0-10.5)
[2017-09-05 18:00] LABS: ALANINE AMINOTRANSFERASE 30 U/L (9-52); ALBUMIN 3.4 g/dL (3.5-5.0); ALKALINE PHOSPHATASE 88 U/L (38-126); ANION GAP 8 (5-19); ASPARTATE AMINO TRANSFERASE 25 U/L (14-36); BILIRUBIN,DIRECT 0.3 mg/dL (0.0-0.4); BLOOD UREA NITROGEN 12 mg/dL (7-20); CALCIUM 9.7 mg/dL (8.4-10.2); CARBON DIOXIDE 28 mmol/L (22-30); CHLORIDE 104 mmol/L (98-107); GLUCOSE 243 mg/dL (75-110); POTASSIUM 4.1 mmol/L (3.6-5.0); SODIUM 140.3 mmol/L (137-145); TOTAL PROTEIN 6.5 g/dL (6.3-8.2)
[2017-09-05 18:01] LABS: APPEARANCE,URINE SLIGHTLY-CLOUDY; BILIRUBIN,URINE NEGATIVE (NEGATIVE); COLOR,URINE YELLOW; GLUCOSE, URINE >=500 mg/dL (NEGATIVE); KETONES,URINE NEGATIVE (NEGATIVE); LEUKOCYTE ESTERASE,URINE MODERATE (NEGATIVE); NITRITE,URINE NEGATIVE (NEGATIVE); PROTEIN,URINE NEGATIVE (NEGATIVE); UROBILINOGEN,URINE NEGATIVE mg/dL (<2.0)
[2017-09-05] MEDS ORDERED: CEFTRIAXONE 1 GM/D5W RTU 1 GM/50 ML RTUPB IV ONE (18:16)
[2017-09-05] MEDS ORDERED: LIDOCAINE 1%/EPINEPHRINE INJ 20 ML VIAL INJ ONE (18:27)
--- NOTE | 2017-09-05 18:29 | RADIOLOGY REPORT (SQ) ---
EXAM DESCRIPTION: ELBOW RIGHT OVER 2 VIEWS COMPLETED DATE/TIME: 09/05/2017 6:02 pm REASON FOR STUDY: 5, fall COMPARISON: None. NUMBER OF VIEWS: Four views right elbow LIMITATIONS: None. FINDINGS: No fracture or suggestion of fusion. Dorsal soft tissue laceration. No radiopaque foreig n body. OTHER: No other significant finding. IMPRESSION: Soft tissue injury. TECHNICAL DOCUMENTATION: JOB ID: [id number] Reading location - IP/workstation name: [email or web address]
--- NOTE | 2017-09-05 18:35 | RADIOLOGY REPORT (SQ) ---
EXAM DESCRIPTION: CT CERVICAL SPINE WITHOUT COMPLETED DATE/TIME: 09/05/2017 6:03 pm REASON FOR STUDY: 5, fall COMPARISON: 05/05/2017. TECHNIQUE: Axial images acquired through the cervical spine without intravenous contrast. Images re viewed with lung, soft tissue and bone windows. Reconstructed coronal and sagittal MPR images review ed. Images stored on PACS. All CT scanners at this facility use dose modulation, iterative reconstruction, and/or weight based d osing when appropriate to reduce radiation dose to as low as reasonably achievable (ALARA). [facility]: Dose Right [facility]: CareDose [facility]: Dose Right [facility]: Teradose 4D [facility]: Smart [employer]Board RADIATION DOSE: CT Rad equipment meets quality standard of care and radiation dose reduction techniq ues were employed. CTDIvol: 27.7 mGy. DLP: 1024 mGy-cm. mGy. LIMITATIONS: Initial scanning showed significant motion artifact through the C2-C3 vertebrae. Repea t scanning is better diagnostic quality with less motion. FINDINGS: ALIGNMENT: Anatomic. MINERALIZATION: Normal. VERTEBRAL BODIES: No fractures or dislocation. DISCS: C6-7 disc space narrowing with associated spurs. FACETS, LATERAL MASSES, POSTERIOR ELEMENTS: Facet arthropathy, multilevel joint space narrowing with mild sclerosis and osteophytes. No fracture in the posterior elements detected. HARDWARE: None in the spine. VISUALIZED RIBS: No fractures. LUNG APICES AND SOFT TISSUES: No significant or acute findings. OTHER: No other significant finding. IMPRESSION: Spondylosis. No evidence of fracture or posttraumatic malalignment. TECHNICAL DOCUMENTATION: JOB ID: [id number] Quality ID # [id number]: Final reports with documentation of one or more dose reduction techniques (e.g., Au tomated exposure control, adjustment of the mA and/or kV according to patient size, use of iterative reconstruction technique) 2010 [employer]- All Rights Reserved Reading location - IP/workstation name: [email or web address]
[2017-09-05] MEDS ORDERED: NORMAL SALINE 1000 ML 1,000 ML IV ONE (19:00)
[2017-09-05] MEDS ORDERED: DEXTROSE 40% GEL 15 GM TUBE X 2 PO PRN (21:04)
[2017-09-05] MEDS ORDERED: DEXTROSE 40% GEL 15 GM TUBE PO PRN (21:04)
[2017-09-05] MEDS ORDERED: DEXTROSE 50%-WATER SYRINGE 12.5 GM/25 ML DOSE IV PRN (21:04)
[2017-09-05] MEDS ORDERED: DEXTROSE 50%-WATER SYRINGE 25 GM/50 ML DOSE IV PRN (21:04)
[2017-09-05] MEDS ORDERED: GLUCAGON,HUMAN RECOMB 1 MG INJ IM PRN (21:04)
--- NOTE | 2017-09-05 21:16 | EKG REPORT ---
SEVERITY:- OTHERWISE NORMAL ECG - SINUS RHYTHM LEFT AXIS DEVIATION : Confirmed by: Felipe Glez 05-Sep-2017 21:16:13
[2017-09-05] MEDS: INSULIN LISPRO 100 UNIT/ML 3 ML VIAL SUBCUT PRN (23:21)
[2017-09-05] MEDS ORDERED: ACETAMINOPHEN 325 MG TABLET PO PRN (23:36)
[2017-09-05] MEDS ORDERED: ALBUTEROL SULFATE HFA (90 MCG/PUFF) 200 PUFF/8.5 GM MDI IH PRN (23:36)
[2017-09-06] MEDS ORDERED: ALBUTEROL SULFATE HFA (90 MCG/PUFF) 200 PUFF/8.5 GM MDI IH ONE (00:09)
[2017-09-06] MEDS ORDERED: ALBUTEROL SULFATE HFA (90 MCG/PUFF) 200 PUFF/8.5 GM MDI IH PRN (00:30)
[2017-09-06] MEDS: GABAPENTIN 400 MG CAPSULE PO SCH ×3 (05:35→21:38)
[2017-09-06 05:53] LABS: ABSOLUTE BASOPHILS # (AUTO) 0.1 10^3/uL (0.0-0.2); ABSOLUTE EOSINOPHILS # (AUTO) 0.3 10^3/uL (0.0-0.6); ABSOLUTE LYMPHOCYTES (AUTO) 2.6 10^3/uL (0.5-4.7); ABSOLUTE MONOCYTES (AUTO) 0.8 10^3/uL (0.1-1.4); ABSOLUTE NEUT (AUTO) 4.5 10^3/uL (1.7-8.2); BASOPHILS % (AUTO) 0.8 % (0-2); EOSINOPHILS % (AUTO) 3.9 % (0-6); HEMATOCRIT 37.9 % (36.0-47.0); HEMOGLOBIN 12.9 g/dL (12.0-15.5); LYMPHOCYTES % (AUTO) 31.1 % (13-45); MEAN CORPUSCULAR HEMOGLOBIN 31.8 pg (27.0-33.4); MEAN CORPUSCULAR VOLUME 93 fl (80-97); MONOCYTES % (AUTO) 9.1 % (3-13); PLATELET COUNT 290 10^3/uL (150-450); RED BLOOD COUNT 4.06 10^6/uL (3.72-5.28); RED CELL DISTRIBUTION WIDTH 15.9 % (11.5-14.0); SEGMENTED NEUTROPHILS % (AUTO) 55.1 % (42-78); TOTAL CELLS COUNTED % (AUTO) 100 %; WHITE BLOOD COUNT 8.3 10^3/uL (4.0-10.5)
[2017-09-06 05:58] LABS: ANION GAP 8 (5-19); BLOOD UREA NITROGEN 11 mg/dL (7-20); CALCIUM 9.3 mg/dL (8.4-10.2); CARBON DIOXIDE 28 mmol/L (22-30); CHLORIDE 107 mmol/L (98-107); GLUCOSE 164 mg/dL (75-110); POTASSIUM 3.7 mmol/L (3.6-5.0); SODIUM 143.3 mmol/L (137-145)
[2017-09-06] MEDS: METOPROLOL SUCCINATE 50 MG TAB.SR.24H PO SCH (09:30)
[2017-09-06] MEDS: PIOGLITAZONE HCL 30 MG TABLET PO SCH (09:47)
[2017-09-06] MEDS: INSULIN DETEMIR 100 UNIT/ML 3 ML PEN SUBCUT SCH (09:49)
[2017-09-06] MEDS: FLUTICASONE/UMECLIDIN/VILANTER 100-62.5-25 MCG/DOSE IH SCH (09:49)
[2017-09-06] MEDS: LANSOPRAZOLE 30 MG TAB.RAP.DR PO SCH (09:49)
[2017-09-06] MEDS: SITAGLIPTIN PHOSPHATE 50 MG TABLET PO SCH (09:49)
[2017-09-06] MEDS: DULOXETINE HCL 30 MG CAPSULE.DR PO SCH ×2 (09:49→21:38)
[2017-09-06] MEDS: ENOXAPARIN SODIUM INJ 40 MG/0.4 ML DISP.SYRIN SUBCUT SCH (09:50)
[2017-09-06] MEDS ORDERED: (PENDING PHARMACY ID) (Canagliflozin [Invokana] 300 MG) PO SCH (10:00)
--- NOTE | 2017-09-06 10:15 | Physician Advisory Note ---
Physician Advisor ProgressNote .: Pursuant to the plan for [facility], I have reviewed the medical record for this patient. Physician Advisor Statement: Please consider documenting, if you agree: 1. "AMS, due to " - "acute metabolic encephalopathy due to UTI"? - "acute toxic encephalpathy due to [Rx]"? - "acute delirium due to dementia/keyon/..."? Status: AMS/UTI is Obs appropriate until proven otherwise. Given nursing assessment this AM of pt A&O x3, d/c today will be expected. - If MCR pt. If attending finds ongoing clinical issue that is concerning & requiring a 2nd MN, please document it, & then may become appropriate for Inpt status. Thanks! CK
[2017-09-06] MEDS: INSULIN LISPRO 100 UNIT/ML 3 ML VIAL SUBCUT PRN (11:26)
[2017-09-06] MEDS ORDERED: INSULIN DETEMIR 100 UNIT/ML 3 ML PEN SUBCUT SCH (18:00)
[2017-09-06] MEDS ORDERED: CEFTRIAXONE SODIUM 1,000 MG in DEXTROSE 5%-WATER 50 ML IV SCH (18:00)
[2017-09-06] MEDS ORDERED: CEFTRIAXONE 1 GM/D5W RTU 1 GM/50 ML RTUPB IV SCH (18:00)
--- NOTE | 2017-09-06 20:00 | PDOC H&P ---
History of Present Illness Admission Date/PCP: 09/05/17 18:28 TOÑA MCLEAN MD History of Present Illness: DARCY NAVA is a 72 year old female, She was just discharged from the hospital on 09/01/2017 when she was admitted and treated for enterococcus faecalis UTI with IV ampicillin, and it time she was treated successfully with antibiotic for 5 days. She came to the emergency room because she fell and sustained a linear laceration of the right elbow, this was sutured emergency room, the circumstances of the fall is not clear but the ED physician recommended hospital admission. I saw patient on the floor she looks normal there is no acute distress, I do not see any indication for inpatient care at this time, she be discharged home, she will follow with me in the office. Past Medical History Cardiac Medical History: Reports: DVT, Hypertension - ON MEDS Pulmonary Medical History: Reports: Bronchitis, Chronic Obstructive Pulmonary Disease (COPD) - USES NEB AND INHALER, Pneumonia - 2 YRS AGO Neurological Medical History: Denies: Seizures Endocrine Medical History: Reports: Diabetes Mellitus Type 2 GI Medical History: Reports: Hiatal Hernia Musculoskeltal Medical History: Reports: Arthritis Psychiatric Medical History: Reports: Depression Hematology: Reports: Anemia Past Surgical History Past Surgical History: Reports: Appendectomy, Colostomy - History of colostomy revision , History of resection of the colon, Hysterectomy, Orthopedic Surgery - left shoulder, Other - Recent history of extended right hemicolectomy with end ileostomy bag, rvsd Social History Smoking Status: Former Smoker Frequency of Alcohol Use: Rare Hx Recreational Drug Use: No Drugs: None Hx Prescription Drug Abuse: No Family History Family History: COPD, DM, Malignancy - Brother with throat cancer, Other - Father with tuberculosis Parental Family History Reviewed: Yes Children Family History Reviewed: Yes Sibling(s) Family History Reviewed.: Yes Medication/Allergy Home Medications: Canagliflozin [Invokana] 300 mg PO DAILY 07/21/17 Duloxetine HCl [Cymbalta] 60 mg PO Q12 07/21/17 Gabapentin [Neurontin] 1,200 mg PO Q8 07/21/17 Linagliptin [Tradjenta] 5 mg PO DAILY 07/21/17 Metoprolol Succinate [Toprol XL 100 mg Tablet] 100 mg PO DAILY 07/21/17 Omeprazole 40 mg PO DAILY 07/21/17 Pioglitazone HCl [Actos] 30 mg PO QAM 07/21/17 Insulin Detemir [Levemir Flextouch] 55 unit SQ QPM 08/24/17 Aspirin [Aspirin EC] 81 mg PO DAILY 09/06/17 Insulin Aspart [Novolog Flexpen] 10 unit SUBCUT MEALS 09/06/17 Losartan Potassium 100 mg PO DAILY 09/06/17 Multivitamin [Multiple Vitamins] 1 each PO DAILY 09/06/17 Allergies/Adverse Reactions: propoxyphene [From Darvocet-N] Allergy (Verified 04/21/17 06:10) Delirium tapentadol [From Nucynta] Allergy (Verified 04/21/17 06:10) Delirium Review of Systems Constitutional: ABSENT: chills, fever(s), headache(s), weight gain, weight loss Eyes: ABSENT: visual disturbances Ears: ABSENT: hearing changes Cardiovascular: ABSENT: chest pain, dyspnea on exertion, edema, orthropnea, palpitations Respiratory: ABSENT: cough, hemoptysis Gastrointestinal: ABSENT: abdominal pain, constipation, diarrhea, hematemesis, hematochezia, nausea, vomiting Genitourinary: ABSENT: dysuria, hematuria Musculoskeletal: ABSENT: joint swelling Integumentary: ABSENT: rash, wounds Neurological: ABSENT: abnormal gait, abnormal speech, confusion, dizziness, focal weakness, syncope Psychiatric: ABSENT: anxiety, depression, homidical ideation, suicidal ideation Endocrine: ABSENT: cold intolerance, heat intolerance, menstrual abnormalities, polydipsia, polyuria Hematologic/Lymphatic: ABSENT: easy bleeding, easy bruising, lymphadenopathy Physical Exam Vital Signs: Temp Pulse Resp BP Pulse Ox 98.0 F 65 18 112/58 L 98 09/06/17 14:48 09/06/17 14:48 09/06/17 14:48 09/06/17 14:48 09/06/17 14:48 Intake & Output 09/05/17 09/06/17 09/07/17 06:59 06:59 06:59 Intake Total 410 Balance 410 Weight 104.2 kg General appearance: PRESENT: no acute distress, well-developed, well-nourished Head exam: PRESENT: atraumatic, normocephalic Eye exam: PRESENT: conjunctiva pink, EOMI, PERRLA Ear exam: PRESENT: normal external ear exam Mouth exam: PRESENT: moist, tongue midline Neck exam: PRESENT: full ROM Respiratory exam: PRESENT: clear to auscultation [place] Cardiovascular exam: PRESENT: RRR, +S1, +S2 Pulses: PRESENT: normal dorsalis pedis pul, +2 pedal pulses bilateral Vascular exam: PRESENT: normal capillary refill GI/Abdominal exam: PRESENT: normal bowel sounds, soft Rectal exam: PRESENT: deferred Neurological exam: PRESENT: alert, awake, oriented to person, oriented to place , oriented to time, oriented to situation, CN II-XII grossly intact Psychiatric exam: PRESENT: appropriate affect, normal mood Skin exam: PRESENT: dry, intact, warm Results Laboratory Results: 09/06/17 04:58 09/06/17 04:58 09/06/17 09/06/17 04:58 04:58 WBC 8.3 RBC 4.06 Hgb 12.9 Hct 37.9 MCV 93 MCH 31.8 MCHC 34.0 RDW 15.9 H Plt Count 290 Seg Neutrophils % 55.1 Lymphocytes % 31.1 Monocytes % 9.1 Eosinophils % 3.9 Basophils % 0.8 Absolute Neutrophils 4.5 Absolute Lymphocytes 2.6 Absolute Monocytes 0.8 Absolute Eosinophils 0.3 Absolute Basophils 0.1 Sodium 143.3 Potassium 3.7 Chloride 107 Carbon Dioxide 28 Anion Gap 8 BUN 11 Creatinine 1.00 Est GFR ( Amer) > 60 Est GFR (Non-Af Amer) 54 L Glucose 164 H Calcium 9.3 Impressions: Chest X-Ray 09/05/17 15:10 IMPRESSION: NO SIGNIFICANT RADIOGRAPHIC FINDING IN THE CHEST. Head CT 09/05/17 15:10 IMPRESSION: No acute abnormality. EVIDENCE OF ACUTE STROKE: NO. Cervical Spine CT 09/05/17 16:21 IMPRESSION: Spondylosis. No evidence of fracture or posttraumatic malalignment. Elbow X-Ray 09/05/17 16:22 IMPRESSION: Soft tissue injury. Assessment & Plan - Diagnosis (1) Fall Qualifiers: Encounter type: initial encounter Qualified Code(s): W19.XXXA - Unspecified fall, initial encounter Is this a current diagnosis for this admission?: Yes (2) Urinary tract infection Qualifiers: Urinary tract infection type: site unspecified Hematuria presence: without hematuria Qualified Code(s): N39.0 - Urinary tract infection, site not specified Is this a current diagnosis for this admission?: Yes Plan: She will empirically be treated with Macrobid for E faecalis UTI
--- NOTE | 2017-09-06 20:03 | PDOC DISCHARGE SUMMARY ---
General - Admit/Disc Date/PCP Admission Date/Primary Care Provider: 09/05/17 18:28 TOÑA MCLEAN MD Discharge Date: 09/06/17 - Discharge Diagnosis (1) Fall Is this a current diagnosis for this admission?: Yes (2) Urinary tract infection Is this a current diagnosis for this admission?: Yes - Additional Information Prescriptions: Nitrofurantoin Monohyd/M-Cryst [Macrobid 100 mg Capsule] 100 mg PO BID #10 capsule Home Medications: Canagliflozin [Invokana] 300 mg PO DAILY 07/21/17 Duloxetine HCl [Cymbalta] 60 mg PO Q12 07/21/17 Gabapentin [Neurontin] 1,200 mg PO Q8 07/21/17 Linagliptin [Tradjenta] 5 mg PO DAILY 07/21/17 Metoprolol Succinate [Toprol XL 100 mg Tablet] 100 mg PO DAILY 07/21/17 Omeprazole 40 mg PO DAILY 07/21/17 Pioglitazone HCl [Actos] 30 mg PO QAM 07/21/17 Insulin Detemir [Levemir Flextouch] 55 unit SQ QPM 08/24/17 Aspirin [Aspirin EC] 81 mg PO DAILY 09/06/17 Insulin Aspart [Novolog Flexpen] 10 unit SUBCUT MEALS 09/06/17 Losartan Potassium 100 mg PO DAILY 09/06/17 Multivitamin [Multiple Vitamins] 1 each PO DAILY 09/06/17 Nitrofurantoin Monohyd/M-Cryst [Macrobid 100 mg Capsule] 100 mg PO BID #10 capsule 09/06/17 History of Present Illness History of Present Illness: DARCY NAVA is a 72 year old female, She was just discharged from the hospital on 09/01/2017 when she was admitted and treated for enterococcus faecalis UTI with IV ampicillin, and it time she was treated successfully with antibiotic for 5 days. She came to the emergency room because she fell and sustained a linear laceration of the right elbow, this was sutured emergency room, the circumstances of the fall is not clear but the ED physician recommended hospital admission. I saw patient on the floor she looks normal there is no acute distress, I do not see any indication for inpatient care at this time, she be discharged home, she will follow with me in the office. Hospital Course Hospital Course: Patient was admitted for UTI and a fall, she was admitted for observation Physical Exam Vital Signs: Temp Pulse Resp BP Pulse Ox 98.0 F 65 18 112/58 L 98 09/06/17 14:48 09/06/17 14:48 09/06/17 14:48 09/06/17 14:48 09/06/17 14:48 Intake & Output 09/05/17 09/06/17 09/07/17 06:59 06:59 06:59 Intake Total 410 Balance 410 Weight 104.2 kg General appearance: PRESENT: no acute distress, well-developed, well-nourished Head exam: PRESENT: atraumatic, normocephalic Eye exam: PRESENT: conjunctiva pink, EOMI, PERRLA Ear exam: PRESENT: normal external ear exam Mouth exam: PRESENT: moist, tongue midline Neck exam: PRESENT: full ROM Respiratory exam: PRESENT: clear to auscultation [place] Cardiovascular exam: PRESENT: RRR, +S1, +S2 Vascular exam: PRESENT: normal capillary refill GI/Abdominal exam: PRESENT: normal bowel sounds, soft Rectal exam: PRESENT: deferred Neurological exam: PRESENT: alert, awake, oriented to person, oriented to place , oriented to time, oriented to situation, CN II-XII grossly intact Psychiatric exam: PRESENT: appropriate affect, normal mood Skin exam: PRESENT: dry, intact, warm Results Laboratory Results: 09/06/17 04:58 09/06/17 04:58 09/06/17 09/06/17 04:58 04:58 WBC 8.3 RBC 4.06 Hgb 12.9 Hct 37.9 MCV 93 MCH 31.8 MCHC 34.0 RDW 15.9 H Plt Count 290 Seg Neutrophils % 55.1 Lymphocytes % 31.1 Monocytes % 9.1 Eosinophils % 3.9 Basophils % 0.8 Absolute Neutrophils 4.5 Absolute Lymphocytes 2.6 Absolute Monocytes 0.8 Absolute Eosinophils 0.3 Absolute Basophils 0.1 Sodium 143.3 Potassium 3.7 Chloride 107 Carbon Dioxide 28 Anion Gap 8 BUN 11 Creatinine 1.00 Est GFR ( Amer) > 60 Est GFR (Non-Af Amer) 54 L Glucose 164 H Calcium 9.3 Impressions: Chest X-Ray 09/05/17 15:10 IMPRESSION: NO SIGNIFICANT RADIOGRAPHIC FINDING IN THE CHEST. Head CT 09/05/17 15:10 IMPRESSION: No acute abnormality. EVIDENCE OF ACUTE STROKE: NO. Cervical Spine CT 09/05/17 16:21 IMPRESSION: Spondylosis. No evidence of fracture or posttraumatic malalignment. Elbow X-Ray 09/05/17 16:22 IMPRESSION: Soft tissue injury. Qualifiers - * PATIENT BEING DISCHARGED WITH ANY OF THE FOLLOWING DIAGNOSIS: No
[2017-09-07] MEDS: GABAPENTIN 400 MG CAPSULE PO SCH (05:53)
[2017-09-07] MEDS: ENOXAPARIN SODIUM INJ 40 MG/0.4 ML DISP.SYRIN SUBCUT SCH (11:18)
[2017-09-07] MEDS: INSULIN DETEMIR 100 UNIT/ML 3 ML PEN SUBCUT SCH (11:18)
[2017-09-07] MEDS: DULOXETINE HCL 30 MG CAPSULE.DR PO SCH (11:20)
[2017-09-07] MEDS: SITAGLIPTIN PHOSPHATE 50 MG TABLET PO SCH (11:21)
[2017-09-07] MEDS: LANSOPRAZOLE 30 MG TAB.RAP.DR PO SCH (11:21)
[2017-09-07] MEDS: METOPROLOL SUCCINATE 50 MG TAB.SR.24H PO SCH (11:22)
[2017-09-07] MEDS: PIOGLITAZONE HCL 30 MG TABLET PO SCH (11:23)
[2017-09-07] MEDS: FLUTICASONE/UMECLIDIN/VILANTER 100-62.5-25 MCG/DOSE IH SCH (11:24)
[2017-09-07 12:55] VITALS: BP 105/58
== END 2017-09-07 14:13 | disposition home health service (06) ==
LOC: ER 13:48 → INTOOBSV 18:28 → OBSVTOIN 18:28 → EH 18:28 → 5 20:19
PROVIDERS: ADMIT Internal Medicine; ATTEND Internal Medicine
PROC: 0HQBXZZ Repair Right Upper Arm Skin, External Approach (ICD-10-PCS; principal; 2017-09-05)
DX: N39.0 Urinary tract infection, site not specified (principal); S51.011A Laceration without foreign body of right elbow, initial encounter; W19.XXXA Unspecified fall, initial encounter; Y92.009 Unspecified place in unspecified non-institutional (private) residence as the place of occurrence of the external cause; E11.9 Type 2 diabetes mellitus without complications; I10 Essential (primary) hypertension; J44.9 Chronic obstructive pulmonary disease, unspecified; R29.6 Repeated falls; R05 Cough; S50.12XA Contusion of left forearm, initial encounter; S50.11XA Contusion of right forearm, initial encounter; R26.81 Unsteadiness on feet; R41.0 Disorientation, unspecified; Z93.2 Ileostomy status; Z90.49 Acquired absence of other specified parts of digestive tract; Z79.899 Other long term (current) drug therapy; Z86.718 Personal history of other venous thrombosis and embolism; Z79.82 Long term (current) use of aspirin; Z79.4 Long term (current) use of insulin; Z60.2 Problems related to living alone; Z93.3 Colostomy status; Z90.710 Acquired absence of both cervix and uterus; Z90.722 Acquired absence of ovaries, bilateral
CPT/HCPCS: 93005; 99285; 96365; 36415 ×2; 87040; 87086; 82962 ×3; 85025 ×2; 85610; 80048; 80053; 81001; 82803; 83605; 71046; 73080; 70450; 72125; 93010; 12001; G0378 ×2; A9270 ×13; J3490 ×3; J1650 ×2; J0696 ×2; J1815

== ENCOUNTER 2018-03-13 15:49 | Inpatient (IN) | payer MEDICARE, MEDICAID ==
[2018-03-13] MEDS ORDERED: METHYLPREDNISOLONE INJ 125 MG/2 ML SDV IV ONE (16:03)
[2018-03-13] MEDS ORDERED: IPRATROPIUM/ALBUTEROL 0.5-2.5 MG/3 ML AMPUL NEB ONE ×2 (16:04→18:09)
[2018-03-13 16:11] LABS: ABSOLUTE BASOPHILS # (AUTO) 0.1 10^3/uL (0.0-0.2); ABSOLUTE EOSINOPHILS # (AUTO) 0.5 10^3/uL (0.0-0.6); ABSOLUTE LYMPHOCYTES (AUTO) 2.4 10^3/uL (0.5-4.7); ABSOLUTE MONOCYTES (AUTO) 0.9 10^3/uL (0.1-1.4); BASOPHILS % (AUTO) 0.6 % (0-2); EOSINOPHILS % (AUTO) 2.9 % (0-6); HEMATOCRIT 42.5 % (36.0-47.0); HEMOGLOBIN 14.1 g/dL (12.0-15.5); LYMPHOCYTES % (AUTO) 13.6 % (13-45); MEAN CORPUSCULAR HEMOGLOBIN 30.4 pg (27.0-33.4); MEAN CORPUSCULAR HGB CONC 33.3 g/dL (32.0-36.0); MEAN CORPUSCULAR VOLUME 91 fl (80-97); MONOCYTES % (AUTO) 5.2 % (3-13); PLATELET COUNT 379 10^3/uL (150-450); RED BLOOD COUNT 4.66 10^6/uL (3.72-5.28); RED CELL DISTRIBUTION WIDTH 16.2 % (11.5-14.0); SEGMENTED NEUTROPHILS % (AUTO) 77.7 % (42-78); TOTAL CELLS COUNTED % (AUTO) 100 %
--- NOTE | 2018-03-13 16:15 | ER Document Report ---
ED General - General Chief Complaint: Breathing Difficulty Stated Complaint: POSSIBLE ALLERGIC REACTION Time Seen by Provider: 03/13/18 15:56 Mode of Arrival: Medic Information source: Patient Notes: 72-year-old female brought to the emergency department by EMS for respiratory distress. Patient told EMS that she has been having a non-productive cough over the last week. Today she had a coughing spell and was unable to catch her breath. She does have pro-air as well as a nebulizer at home. Patient states that she tried these medications without relief. EMS gave the patient and albuterol and Atrovent treatment and placed on CPAP. Patient states that she has a history of COPD. She is not on home oxygen. She denies smoking. She follows up with Dr. Mclean. TRAVEL OUTSIDE OF THE [place] IN LAST 30 DAYS: No - HPI Onset: Just prior to arrival Onset/Duration: Sudden Quality of pain: No pain Severity: None Pain Level: Denies Associated symptoms: Chills, Productive cough, Fever Exacerbated by: Denies Relieved by: Denies Similar symptoms previously: Yes Recently seen / treated by doctor: No - Related Data Allergies/Adverse Reactions: propoxyphene [From Darvocet-N] Allergy (Verified 03/13/18 16:06) Delirium tapentadol [From Nucynta] Allergy (Verified 03/13/18 16:06) Delirium Past Medical History - General Information source: Patient - Social History Smoking Status: Former Smoker Family History: COPD, DM, Malignancy - Brother with throat cancer, Other - Father with tuberculosis - Past Medical History Cardiac Medical History: Reports: Hx DVT, Hx Hypertension - ON MEDS Denies: Hx Atrial Fibrillation, Hx Congestive Heart Failure, Hx Coronary Artery Disease, Hx Heart Attack, Hx Hypercholesterolemia, Hx Peripheral Vascular Disease, Hx Pulmonary Embolism, Hx Heart Murmur Pulmonary Medical History: Reports: Hx Bronchitis, Hx COPD - USES NEB AND INHALER, Hx Pneumonia - 2 YRS AGO Denies: Hx Asthma, Hx Respiratory Failure, Hx Sleep Apnea, Hx Tuberculosis Neurological Medical History: Denies: Hx Cerebrovascular Accident, Hx Seizures Endocrine Medical History: Reports: Hx Diabetes Mellitus Type 2. Denies: Hx Graves' Disease, Hx Hyperthyroidism, Hx Hypothyroidism Renal/ Medical History: Reports: Hx End Stage Renal Disease - Stage 3- NO DIALYSIS. Denies: Hx Kidney Stones, Hx Ovarian Cysts, Hx Peritoneal Dialysis, Hx Pelvic Inflammatory Disease Malignancy Medical History: Reports: Hx Ovarian Cancer - PRE-CANCEROUS, TOTAL HYST, QUINN SALPINGOOPHORECTOMY. Denies: Hx Breast Cancer, Hx Cervical Cancer, Hx Leukemia, Hx Lung Cancer GI Medical History: Reports: Hx Hiatal Hernia. Denies: Hx Crohn's Disease, Hx Gastroesophageal Reflux Disease, Hx Irritable Bowel, Hx Liver Failure, Hx Pancreatitis, Hx Ulcer Musculoskeletal Medical History: Reports Hx Arthritis, Denies Hx Fibromyalgia, Denies Hx Multiple Sclerosis, Denies Hx Muscular Dystrophy Psychiatric Medical History: Reports: Hx Depression Denies: Hx Bipolar Disorder, Hx Dementia, Hx Post Traumatic Stress Disorder, Hx Schizophrenia Traumatic Medical History: Denies: Hx Fractures Infectious Medical History: Denies: Hx HIV Past Surgical History: Reports: Hx Abdominal Surgery, Hx Appendectomy, Hx Bowel Surgery - EX LAP, ILEOSTOMY, Hx Colostomy - History of colostomy revision , History of resection of the colon, Hx Hysterectomy, Hx Kidney (Renal Surgery) - Right kidney, Hx Orthopedic Surgery - left shoulder, Other - Recent history of extended right hemicolectomy with end ileostomy bag, rvsd. Denies: Hx Section, Hx Cholecystectomy, Hx Coronary Artery Bypass Graft, Hx Gastric Bypass Surgery, Hx Herniorrhaphy, Hx Mastectomy, Hx Pacemaker, Hx Tonsillectomy, Hx Tubal Ligation - Immunizations Immunizations up to date: Yes Hx Diphtheria, Pertussis, Tetanus Vaccination: Yes Hx Pneumococcal Vaccination: 05/27/13 Review of Systems - Review of Systems Constitutional: Chills, Fever EENT: Nose congestion Cardiovascular: No symptoms reported Respiratory: Cough Gastrointestinal: No symptoms reported Genitourinary: No symptoms reported Female Genitourinary: No symptoms reported Musculoskeletal: No symptoms reported Skin: No symptoms reported Hematologic/Lymphatic: No symptoms reported Neurological/Psychological: No symptoms reported -: Yes All other systems reviewed and negative Physical Exam - Vital signs Vitals: Resp Pulse Ox 17 94 03/13/18 15:54 03/13/18 15:54 - Notes Notes: PHYSICAL EXAMINATION: GENERAL: Patient on BiPAP. Tolerating well. HEAD: Atraumatic, normocephalic. EYES: Pupils equal round and reactive to light, extraocular movements intact, conjunctiva are normal. ENT: Nares patent, oropharynx clear without exudates. Moist mucous membranes. NECK: Normal range of motion, supple without lymphadenopathy LUNGS: Diffuse wheezing and rhonci. HEART: Regular rate and rhythm without murmurs ABDOMEN: Soft, nontender, nondistended abdomen. No guarding, no rebound. No masses appreciated. Female : deferred Musculoskeletal: Normal range of motion, no pitting or edema. No cyanosis. NEUROLOGICAL: Cranial nerves grossly intact. Normal speech. Normal sensory, motor exams PSYCH: Normal mood, normal affect. SKIN: Warm, Dry, normal turgor, no rashes or lesions noted. Course - Re-evaluation Re-evalutation: 03/13/18 16:39 EKG: Ventricular rate 65, NJ interval 180, QRS duration 100, QTc 483, sinus rhythm, left axis deviation, no ST segment elevation. 03/13/18 18:44 Patient placed on Bipap in the ED. Tolerating Bipap well. Vitals improved and stable. White blood cell count is 18. Chest xray does not show any signs of infection. UA is unremarkable. No recent antibiotics per patient. Last hospitalization was 6 months ago. I contacted Dr. Elizabeth who is oncall for Dr. Mclean. He would like the patient started on cefepime and azithromycin with admission to [facility]. - Vital Signs Vital signs: Temp Pulse Resp BP Pulse Ox 98.0 F 18 95/72 L 94 03/13/18 16:07 03/13/18 18:03 03/13/18 18:03 03/13/18 17:21 - Laboratory Result Diagrams: 03/13/18 15:54 03/13/18 15:54 Laboratory results interpreted by me: 03/13/18 03/13/18 03/13/18 15:54 15:54 17:10 WBC 18.0 H RDW 16.2 H Absolute Neutrophils 14.0 H Carbonic Acid ABG pH ABG pCO2 ABG HCO3 ABG Total CO2 Sodium 135.1 L Creatinine 1.29 H Est GFR ( Amer) 49 L Est GFR (Non-Af Amer) 41 L Glucose 235 H Creatine Kinase < 20 L Urine Glucose (UA) >=500 H 03/13/18 18:20 WBC RDW Absolute Neutrophils Carbonic Acid 1.47 H ABG pH 7.33 L ABG pCO2 48.7 H ABG HCO3 25.1 H ABG Total CO2 26.6 H Sodium Creatinine Est GFR ( Amer) Est GFR (Non-Af Amer) Glucose Creatine Kinase Urine Glucose (UA) Discharge - Discharge Clinical Impression: COPD exacerbation Condition: Stable Disposition: ADMITTED OBSERVATION Admitting Provider: [facility] Admitted: [facility] Referrals: TOÑA MCLEAN MD [Primary Care Provider] - Follow up as needed
--- NOTE | 2018-03-13 16:27 | RADIOLOGY REPORT (SQ) ---
EXAM DESCRIPTION: CHEST SINGLE VIEW COMPLETED DATE/TIME: 03/13/2018 4:12 pm REASON FOR STUDY: er bed 19 db COMPARISON: 09/05/2017 EXAM PARAMETERS: NUMBER OF VIEWS: One view. TECHNIQUE: Single frontal radiographic view of the chest acquired. RADIATION DOSE: NA LIMITATIONS: None. FINDINGS: LUNGS AND PLEURA: No opacities, masses or pneumothorax. No pleural effusion. MEDIASTINUM AND HILAR STRUCTURES: No masses. Contour normal. HEART AND VASCULAR STRUCTURES: Heart normal in size. Normal vasculature. BONES: No acute findings. HARDWARE: None in the chest. OTHER: No other significant finding. IMPRESSION: NO ACUTE RADIOGRAPHIC FINDING IN THE CHEST. TECHNICAL DOCUMENTATION: JOB ID: [id number] [employer]- All Rights Reserved Reading location - IP/workstation name: [email or web address]
[2018-03-13 16:29] LABS: ALANINE AMINOTRANSFERASE 16 U/L (9-52); ALBUMIN 4.1 g/dL (3.5-5.0); ALKALINE PHOSPHATASE 123 U/L (38-126); ANION GAP 9 (5-19); ASPARTATE AMINO TRANSFERASE 26 U/L (14-36); BILIRUBIN,DIRECT 0.3 mg/dL (0.0-0.4); BILIRUBIN,TOTAL 0.9 mg/dL (0.2-1.3); BLOOD UREA NITROGEN 17 mg/dL (7-20); CARBON DIOXIDE 28 mmol/L (22-30); CHLORIDE 98 mmol/L (98-107); GLUCOSE 235 mg/dL (75-110); POTASSIUM 4.3 mmol/L (3.6-5.0); SODIUM 135.1 mmol/L (137-145); TOTAL PROTEIN 7.9 g/dL (6.3-8.2)
[2018-03-13 16:38] LABS: CREATINE KINASE < 20 U/L (30-135)
[2018-03-13 16:41] LABS: CREATINE KINASE MB 0.93 ng/mL (<4.55)
[2018-03-13 16:42] LABS: TROPONIN I < 0.012 ng/mL
[2018-03-13 17:28] LABS: APPEARANCE,URINE CLEAR; BILIRUBIN,URINE NEGATIVE (NEGATIVE); COLOR,URINE YELLOW; GLUCOSE, URINE >=500 mg/dL (NEGATIVE); KETONES,URINE NEGATIVE (NEGATIVE); LEUKOCYTE ESTERASE,URINE NEGATIVE (NEGATIVE); NITRITE,URINE NEGATIVE (NEGATIVE); PROTEIN,URINE NEGATIVE (NEGATIVE); URINE SPECIFIC GRAVITY 1.009; UROBILINOGEN,URINE NEGATIVE mg/dL (<2.0)
[2018-03-13] MEDS ORDERED: NORMAL SALINE 500 ML IV ONE (18:22)
[2018-03-13 18:34] LABS: ARTERIAL BLOOD BASE EXCESS -1.3 mmol/L; ARTERIAL BLOOD FIO2 40%; ARTERIAL BLOOD H2CO3 1.47 mmol/L (1.05-1.35); ARTERIAL BLOOD HCO3 25.1 mmol/L (20-24); ARTERIAL BLOOD PCO2 48.7 mmHg (35-45); ARTERIAL BLOOD PH 7.33 (7.35-7.45); ARTERIAL BLOOD PO2 98.3 mmHg (80-100); ARTERIAL BLOOD TOTAL CO2 26.6 mmol/L (21-25)
[2018-03-13] MEDS ORDERED: CEFEPIME 2 GM/D5W RTU 2 GM/50 ML RTUPB IV ONE (18:39)
[2018-03-13] MEDS ORDERED: AZITHROMYCIN INJ 500 MG VIAL IV ONE ×2 (18:40→22:36)
[2018-03-13] MEDS ORDERED: DEXTROSE 40% GEL 15 GM TUBE PO PRN ×2 (18:44)
[2018-03-13] MEDS ORDERED: GLUCAGON,HUMAN RECOMB 1 MG INJ IM PRN (18:44)
[2018-03-13] MEDS ORDERED: DEXTROSE 50%-WATER 25 GM/50 ML DISP.SYRIN IV PRN ×2 (18:44)
[2018-03-13 18:53] LABS: A TYPE INFLUENZA AG NEGATIVE (NEGATIVE); B INFLUENZA AG NEGATIVE (NEGATIVE)
--- NOTE | 2018-03-13 19:17 | PDOC H&P ---
History of Present Illness Admission Date/PCP: 03/13/18 18:46 TOÑA MCLEAN MD Patient complains of: Difficulty in breathing and mild respiratory distress History of Present Illness: DARCY NAVA is a 72 year old female This is a 72-year-old female a patient of Dr. Mclean with a history of the COPD history of the smoking in the past not currently smoking history of the type 2 diabetes hypertension's and morbid obesity noticed on several days some upper respiratory symptoms and patient have a more coughing spell today with nonproductive cough and patient unable to breathe and called the EMS and EMS put the patient on a BiPAP and given a respiratory treatment brought to the emergency department In the emergency department patient's received the nebulizer treatments and bilateral expiratory wheeze and received IV Solu-Medrol and patient's part of the BiPAP and feel better When I saw the patient in the ER denied any chest pain denied any headache Patient's initial chest x-ray is negative's and influenza test is negative Patient white count is elevated 18,000 Patient was recently did not admitting in the hospital since last 6 months and the patient did not receive any steroid and antibiotic previous last 1 month Patient's denied any heart problems Past Medical History Cardiac Medical History: Reports: DVT, Hypertension - ON MEDS Denies: Atrial Fibrillation, Congestive Heart Failure, Coronary Artery Disease, Myocardial Infarction, Hyperlipidema, Peripheral Vascular Disease, Pulmonary Embolism, Heart Murmur Pulmonary Medical History: Reports: Bronchitis, Chronic Obstructive Pulmonary Disease (COPD) - USES NEB AND INHALER, Pneumonia - 2 YRS AGO Denies: Asthma, Respiratory Failure, Sleep Apnea, Tuberculosis Neurological Medical History: Denies: Seizures Endocrine Medical History: Reports: Diabetes Mellitus Type 2 Denies: Hyperthyroidism, Hypothyroidism Renal/ Medical History: Reports: Chronic Kidney Disease Malignancy Medical History: Reports: Ovarian Cancer - PRE-CANCEROUS, TOTAL HYST, QUINN SALPINGOOPHORECTOMY Denies: Breast Cancer, Cervical Cancer, Leukemia, Lung Cancer GI Medical History: Reports: Hiatal Hernia Denies: Crohn's Disease, Gastroesophageal Reflux Disease Musculoskeltal Medical History: Reports: Arthritis Denies: Fibromyalgia Psychiatric Medical History: Reports: Depression Denies: Bipolar Disorder, Dementia, Post Traumatic Stress Disorder Hematology: Reports: Anemia Infectious Medical History: Denies: HIV Past Surgical History Past Surgical History: Reports: Appendectomy, Colostomy - History of colostomy revision , History of resection of the colon, Hysterectomy, Orthopedic Surgery - left shoulder, Other - Recent history of extended right hemicolectomy with end ileostomy bag, rvsd Denies: Section, Cholecystectomy, Coronary Artery Bypass Graft, G astric Bypass Surgery, Herniorrhaphy, Mastectomy, Pacemaker, Tonsillectomy, Tubal Ligation Social History Smoking Status: Former Smoker Frequency of Alcohol Use: Rare Hx Recreational Drug Use: No Drugs: None Hx Prescription Drug Abuse: No Family History Family History: Reviewed & Not Pertinent, COPD, DM, Malignancy - Brother with throat cancer, Other - Father with tuberculosis Parental Family History Reviewed: Yes Children Family History Reviewed: Yes Sibling(s) Family History Reviewed.: Yes Medication/Allergy Home Medications: Duloxetine HCl [Cymbalta] 60 mg PO Q12 07/21/17 Metoprolol Succinate [Toprol XL 100 mg Tablet] 100 mg PO DAILY 07/21/17 Omeprazole 40 mg PO DAILY 07/21/17 Pioglitazone HCl [Actos] 30 mg PO QAM 07/21/17 Insulin Detemir [Levemir Flextouch] 55 unit SQ QPM 08/24/17 Aspirin [Aspirin EC] 81 mg PO DAILY 09/06/17 Insulin Aspart [Novolog Flexpen] 10 unit SUBCUT MEALS 09/06/17 Losartan Potassium 100 mg PO DAILY 09/06/17 Multivitamin [Multiple Vitamins] 1 each PO DAILY 09/06/17 Canagliflozin [Invokana] 1 tab PO DAILY 03/13/18 Gabapentin 1,200 mg PO TID 03/13/18 Linagliptin [Tradjenta] 1 tab PO DAILY 03/13/18 Pitavastatin Calcium [Livalo] 4 mg PO DAILY 03/13/18 Allergies/Adverse Reactions: propoxyphene [From Darvocet-N] Allergy (Verified 03/13/18 16:06) Delirium tapentadol [From Nucynta] Allergy (Verified 03/13/18 16:06) Delirium Review of Systems Constitutional: ABSENT: chills, fever(s), headache(s), weight gain, weight loss Eyes: ABSENT: visual disturbances Ears: ABSENT: hearing changes Cardiovascular: PRESENT: dyspnea on exertion. ABSENT: chest pain, edema, orthropnea, palpitations Respiratory: PRESENT: cough. ABSENT: hemoptysis Gastrointestinal: ABSENT: abdominal pain, constipation, diarrhea, hematemesis, hematochezia, nausea, vomiting Genitourinary: ABSENT: dysuria, hematuria Musculoskeletal: ABSENT: joint swelling Integumentary: ABSENT: rash, wounds Neurological: ABSENT: abnormal gait, abnormal speech, confusion, dizziness, focal weakness, syncope Psychiatric: ABSENT: anxiety, depression, homidical ideation, suicidal ideation Endocrine: ABSENT: cold intolerance, heat intolerance, menstrual abnormalities, polydipsia, polyuria Hematologic/Lymphatic: ABSENT: easy bleeding, easy bruising, lymphadenopathy Physical Exam Vital Signs: Temp Pulse Resp BP Pulse Ox 98.0 F 18 95/72 L 94 03/13/18 16:07 03/13/18 18:03 03/13/18 18:03 03/13/18 17:21 Intake & Output 03/12/18 03/13/18 03/14/18 06:59 06:59 06:59 Output Total 950 Balance -950 Weight 110.4 kg General appearance: PRESENT: mild distress, morbidly obese Head exam: PRESENT: atraumatic, normocephalic Eye exam: PRESENT: conjunctiva pink, EOMI, PERRLA. ABSENT: scleral icterus Ear exam: PRESENT: normal external ear exam Mouth exam: PRESENT: moist, tongue midline Neck exam: PRESENT: full ROM. ABSENT: carotid bruit, JVD, lymphadenopathy, t hyromegaly Respiratory exam: PRESENT: decreased breath sounds, wheezes Cardiovascular exam: PRESENT: RRR. ABSENT: diastolic murmur, rubs, systolic mu rmur Vascular exam: PRESENT: normal capillary refill GI/Abdominal exam: PRESENT: normal bowel sounds, soft. ABSENT: distended, guarding, mass, organolmegaly, rebound, tenderness Rectal exam: PRESENT: deferred Extremities exam: ABSENT: pedal edema Neurological exam: PRESENT: alert, awake, oriented to person, oriented to place, oriented to time, oriented to situation, CN II-XII grossly intact. ABSENT: motor sensory deficit Psychiatric exam: PRESENT: appropriate affect, normal mood. ABSENT: homicidal ideation, suicidal ideation Skin exam: PRESENT: dry, intact, warm. ABSENT: cyanosis, rash Results Laboratory Results: 03/13/18 15:54 03/13/18 15:54 03/13/18 03/13/18 03/13/18 15:54 15:54 17:10 WBC 18.0 H RBC 4.66 Hgb 14.1 Hct 42.5 MCV 91 MCH 30.4 MCHC 33.3 RDW 16.2 H Plt Count 379 Seg Neutrophils % 77.7 Lymphocytes % 13.6 Monocytes % 5.2 Eosinophils % 2.9 Basophils % 0.6 Absolute Neutrophils 14.0 H Absolute Lymphocytes 2.4 Absolute Monocytes 0.9 Absolute Eosinophils 0.5 Absolute Basophils 0.1 Carbonic Acid HCO3/H2CO3 Ratio ABG pH ABG pCO2 ABG pO2 ABG HCO3 ABG O2 Saturation ABG Base Excess FiO2 Sodium 135.1 L Potassium 4.3 Chloride 98 Carbon Dioxide 28 Anion Gap 9 BUN 17 Creatinine 1.29 H Est GFR ( Amer) 49 L Est GFR (Non-Af Amer) 41 L Glucose 235 H Calcium 10.0 Total Bilirubin 0.9 AST 26 ALT 16 Alkaline Phosphatase 123 Total Protein 7.9 Albumin 4.1 Urine Color YELLOW Urine Appearance CLEAR Urine pH 6.0 Ur Specific [place] 1.009 Urine Protein NEGATIVE Urine Glucose (UA) >=500 H Urine Ketones NEGATIVE Urine Blood NEGATIVE Urine Nitrite NEGATIVE Ur Leukocyte Esterase NEGATIVE Urine WBC (Auto) 0 03/13/18 18:20 WBC RBC Hgb Hct MCV MCH MCHC RDW Plt Count Seg Neutrophils % Lymphocytes % Monocytes % Eosinophils % Basophils % Absolute Neutrophils Absolute Lymphocytes Absolute Monocytes Absolute Eosinophils Absolute Basophils Carbonic Acid 1.47 H HCO3/H2CO3 Ratio 17:1 ABG pH 7.33 L ABG pCO2 48.7 H ABG pO2 98.3 ABG HCO3 25.1 H ABG O2 Saturation 97.0 ABG Base Excess -1.3 FiO2 40% Sodium Potassium Chloride Carbon Dioxide Anion Gap BUN Creatinine Est GFR ( Amer) Est GFR (Non-Af Amer) Glucose Calcium Total Bilirubin AST ALT Alkaline Phosphatase Total Protein Albumin Urine Color Urine Appearance Urine pH Ur Specific [place] Urine Protein Urine Glucose (UA) Urine Ketones Urine Blood Urine Nitrite Ur Leukocyte Esterase Urine WBC (Auto) 03/13/18 03/13/18 15:54 15:54 Creatine Kinase < 20 L CK-MB (CK-2) 0.93 Troponin I < 0.012 Impressions: Chest X-Ray 03/13/18 15:54 IMPRESSION: NO ACUTE RADIOGRAPHIC FINDING IN THE CHEST. Assessment & Plan - Diagnosis (1) COPD exacerbation Is this a current diagnosis for this admission?: Yes Plan: Start the patient on IV Solu-Medrol and nebulizer treatments (2) Acute hypoxemic respiratory failure Is this a current diagnosis for this admission?: Yes Plan: Put the patient on a BiPAP consult the pulmonary (3) Systemic inflammatory response syndrome (SIRS) Is this a current diagnosis for this admission?: Yes Plan: Possible underlying pneumonia will get the blood culture urine culture sputum culture start the patient on a community-acquired pneumonia protocol antibiotic (4) Type 2 diabetes mellitus with complication Qualifiers: 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 Plan: The patient on the sliding scales - Time Time Spent: 30 to 50 Minutes Medications reviewed and adjusted accordingly: Yes Anticipated discharge: Home Within: Other - Inpatient Certification Based on my medical assessment, after consideration of the patient's comorbidities, presenting symptoms, or acuity I expect that the services needed warrant INPATIENT care.: Yes I certify that my determination is in accordance with my understanding of Medicare's requirements for reasonable and necessary INPATIENT services [42 CFR 412.3e].: Yes Medical Necessity: Need For Continuous Telemetry Monitoring, Need for Nebulizer Therapy and Monitoring of Response, Need for IV Antibiotics Post Hospital Care: D/C Board Of Directors Documentation - Plan Summary Plan Summary: Admitting IMCU Discussed with the nursing staff in the ER regarding the patient's all the treatments including the use the insulin at night Discussed with the pulmonary doctor ibeth
[2018-03-13] MEDS ORDERED: GABAPENTIN 400 MG CAPSULE PO ONE ×2 (20:00→22:15)
[2018-03-13] MEDS: CEFEPIME 2 GM/D5W RTU 2 GM/50 ML RTUPB IV SCH (21:07)
[2018-03-13] MEDS ORDERED: INSULIN DETEMIR 100 UNIT/ML 3 ML PEN SUBCUT ONE (21:18)
[2018-03-13] MEDS: INSULIN LISPRO 100 UNIT/ML 3 ML VIAL SUBCUT PRN (22:00)
[2018-03-13] MEDS ORDERED: METHYLPREDNISOLONE INJ 125 MG/2 ML SDV IV SCH (22:00)
[2018-03-13] MEDS ORDERED: IPRATROPIUM/ALBUTEROL 0.5-2.5 MG/3 ML AMPUL NEB SCH (22:00)
[2018-03-13] MEDS: INSULIN DETEMIR 100 UNIT/ML 3 ML PEN SUBCUT SCH (22:01)
[2018-03-13] MEDS: DULOXETINE HCL 30 MG CAPSULE.DR PO SCH (22:02)
[2018-03-13] MEDS: METHYLPREDNISOLONE INJ 125 MG/2 ML SDV IV SCH (22:02)
[2018-03-13] MEDS: GUAIFENESIN 600 MG TABLET.SA PO SCH (22:02)
[2018-03-13] MEDS: FAMOTIDINE 20 MG TABLET PO SCH (22:20)
[2018-03-13] MEDS ORDERED: FLUTICASONE/SALMETEROL DISKUS 250-50 MCG/DOSE IH ONE (22:37)
[2018-03-13] MEDS: FLUTICASONE/SALMETEROL DISKUS 250-50 MCG/DOSE IH SCH (22:57)
--- NOTE | 2018-03-13 23:44 | EKG REPORT ---
SEVERITY:- OTHERWISE NORMAL ECG - SINUS RHYTHM LEFT AXIS DEVIATION : Confirmed by: Felipe Glez 13-Mar-2018 23:43:47
[2018-03-14] MEDS ORDERED: CEFAZOLIN 2 GM/D5W RTU 2 GM/50 ML RTUPB IV SCH
[2018-03-14 00:11] LABS: TROPONIN I < 0.012 ng/mL
[2018-03-14] MEDS: IPRATROPIUM/ALBUTEROL 0.5-2.5 MG/3 ML AMPUL NEB SCH ×6 (00:24→20:30)
[2018-03-14 01:42] LABS: CREATINE KINASE MB 0.71 ng/mL (<4.55)
[2018-03-14] MEDS: METHYLPREDNISOLONE INJ 125 MG/2 ML SDV IV SCH ×3 (05:16→22:02)
[2018-03-14 06:03] LABS: ABSOLUTE LYMPHOCYTES (AUTO) 1.1 10^3/uL (0.5-4.7); ABSOLUTE MONOCYTES (AUTO) 0.1 10^3/uL (0.1-1.4); ABSOLUTE NEUT (AUTO) 10.9 10^3/uL (1.7-8.2); BASOPHILS % (AUTO) 0.1 % (0-2); HEMATOCRIT 39.1 % (36.0-47.0); HEMOGLOBIN 13.1 g/dL (12.0-15.5); LYMPHOCYTES % (AUTO) 8.9 % (13-45); MEAN CORPUSCULAR HEMOGLOBIN 30.2 pg (27.0-33.4); MEAN CORPUSCULAR HGB CONC 33.4 g/dL (32.0-36.0); MEAN CORPUSCULAR VOLUME 90 fl (80-97); MONOCYTES % (AUTO) 0.7 % (3-13); PLATELET COUNT 241 10^3/uL (150-450); RED BLOOD COUNT 4.33 10^6/uL (3.72-5.28); RED CELL DISTRIBUTION WIDTH 16.1 % (11.5-14.0); SEGMENTED NEUTROPHILS % (AUTO) 90.3 % (42-78); TOTAL CELLS COUNTED % (AUTO) 100 %; WHITE BLOOD COUNT 12.1 10^3/uL (4.0-10.5)
[2018-03-14 06:31] LABS: ANION GAP 10 (5-19); BLOOD UREA NITROGEN 21 mg/dL (7-20); CALCIUM 9.5 mg/dL (8.4-10.2); CARBON DIOXIDE 24 mmol/L (22-30); CHLORIDE 103 mmol/L (98-107); GLUCOSE 246 mg/dL (75-110); POTASSIUM 4.7 mmol/L (3.6-5.0); SODIUM 136.9 mmol/L (137-145)
[2018-03-14 06:35] LABS: CREATINE KINASE < 20 U/L (30-135)
[2018-03-14 06:39] LABS: CREATINE KINASE MB 0.65 ng/mL (<4.55)
[2018-03-14 06:43] LABS: TROPONIN I < 0.012 ng/mL
--- NOTE | 2018-03-14 06:58 | EKG REPORT ---
SEVERITY:- OTHERWISE NORMAL ECG - SINUS RHYTHM LEFT AXIS DEVIATION : Confirmed by: Felipe Glez 14-Mar-2018 06:58:04
[2018-03-14 07:16] LABS: ARTERIAL BLOOD BASE EXCESS -1.6 mmol/L; ARTERIAL BLOOD H2CO3 1.42 mmol/L (1.05-1.35); ARTERIAL BLOOD HCO3 24.6 mmol/L (20-24); ARTERIAL BLOOD O2 SATURATION 98.8 % (94-98); ARTERIAL BLOOD PCO2 47.2 mmHg (35-45); ARTERIAL BLOOD PH 7.34 (7.35-7.45); ARTERIAL BLOOD TOTAL CO2 26.1 mmol/L (21-25)
[2018-03-14 07:17] LABS: ARTERIAL BLOOD FIO2 40%
--- NOTE | 2018-03-14 09:16 | CONSULTATION REPORT E ---
Consultation Report NAME: DARCY NAVA : 1945 AGE: 72Y DATE: 03/13/2018 319 A TO: RUFINO GARZA M.D. FROM: PETE CAMILO M.D. Requesting Physician HISTORY OF PRESENT ILLNESS: The patient is a 72-year-old female who came in for increasing shortness of breath. The patient has a past medical history of COPD, heavy smoking, diabetes, and hypertension, and morbid obesity. The patient has been coughing a lot more for the last 3-4 days and unable to breathe. Called paramedics, and the patient was given a nebulizer treatment and the patient placed on BiPAP and transported to the emergency room. The patient has received IV Solu-Medrol in the emergency room. Currently, the patient is on BiPAP, resting well, sleeping. The patient was awake earlier and appeared to be tolerating the BiPAP very well. PAST MEDICAL HISTORY: 1. History of DVT. 2. History of hypertension. 3. History of COPD. 4. History of bronchitis. 5. Total hysterectomy with bilateral salpingo-oophorectomy. 6. History of hiatal hernia. 8. Osteoarthritis. 9. Depression. Denies any history of atrial fibrillation or heart failure, heart disease, myocardial infarction, hyperlipidemia, and pulmonary embolism. Denies any asthma, respiratory failure, or sleep apnea. Complained about chronic kidney disease. PAST SURGICAL HISTORY: 1. Appendectomy. 2. Colostomy. 3. History of colostomy revision. 4. History of resection of the colon. 5. Hysterectomy. 6. Orthopedic surgery, left shoulder. 7. Extended right hemicolectomy and ileostomy bag. SOCIAL HISTORY: Former smoker. Drinks alcohol occasionally. Denies any illicit drug use or alcohol abuse. FAMILY HISTORY: COPD, diabetes, malignancy. throat cancer. Father had tuberculosis. MEDICATIONS: At home include: 1. Cymbalta. 2. Toprol. 3. Omeprazole. 4. Actos. 5. Levemir. 6. Aspirin. 7. Losartan. 8. Invokana. 9. Gabapentin. 10. Tradjenta. 11. ____. ALLERGIES: 1. DARVOCET. 2. NUCYNTA. REVIEW OF SYSTEMS: CONSTITUTIONAL: No fever or chills. No headache, weight loss. EYES: No blurring of vision. EARS: No hearing changes or ear discharge. CARDIOVASCULAR: Complained about exertional dyspnea. Denies any chest pain, edema, orthopnea, palpitations. RESPIRATORY: Complained about decreased shortness of breath and coughing. No hemoptysis. GASTROINTESTINAL: No nausea, vomiting, diarrhea. GENITOURINARY: No dysuria or hematuria. MUSCULOSKELETAL: No joint swelling. INTEGUMENT: No rash or wounds or cellulitis. PHYSICAL EXAMINATION: GENERAL: The patient was awake, alert, oriented earlier. Currently, the patient appeared to be sleepy, but tolerating the BiPAP therapy, afebrile, and not in apparent respiratory distress with BiPAP therapy of 12/6 and rate of 8, and tidal volume of about 450. The patient saturating about 98%. VITAL SIGNS: Temperature is 98 degrees Fahrenheit and heart rate is 59. Blood pressure is 100/82, respiratory rate of 18, saturation 100%. EYES: No jaundice or pallor. EARS, NOSE, AND THROAT: No ear drainage. No nasal discharge. CHEST AND LUNGS: No wheezing. No rhonchi. No coarse crackles or fine rales. CARDIAC: S1, S2 distinct. Normal rate, regular rhythm. ABDOMEN: Flabby. Positive bowel sounds. Soft. Nondistended. EXTREMITIES: No joint swelling or cellulitis. LABORATORY DATA: CBC done today shows a white count of 18,000, hemoglobin is 14.1, hematocrit is 42.5, platelet count is 329,000. ABG done today at 6:20 p.m. showed pH of 7.33, PCO2 is 48.7, PO2 is 98.3, and saturation is 97% on 40% FiO2. Chemistries showed sodium is 135, potassium 4.3, chloride 98, CO2 is 28, BUN 17, creatinine is 1.49, glucose 235, and calcium is just 10. Total bilirubin is 0.9. Direct bilirubin is 0.3. is normal at 36. alkaline phosphatase is 153. Troponin I is less than 0.012, is normal. The chest x-ray showed normal heart shadow, probably small amount of pleural effusion left side. No apparent signs of pneumonia or hemothorax. ASSESSMENT: 1. COPD/bronchial asthma in acute exacerbation, currently in acute bronchospasm. 2. Probably bronchitis possible. Pneumonia cannot be completely excluded from the chest x-ray. PLAN/RECOMMENDATIONS: 1. Continue nebulizer treatment every 6 hours as needed. 2. Will start the patient on Advair 250 Diskhaler 1 puff b.i.d. 3. We will start the patient on Spiriva inhaler 1 capsule inhaled once daily. 4. May continue BiPAP tonight 02/17 and rate of 8. We may consider changing the patient to nasal cannula tomorrow and titrate the FiO2 to keep saturation 91-94%. 5. I will decrease the Solu-Medrol dose to 80 mg IV q. 8 hours. 6. Continue IV cefepime and azithromycin. 7. Do a sputum culture if patient is putting out any yellow-green phlegm. DICTATING PHYSICIAN: RUFINO GARZA MD,SUSIE,MPH [id number] PHY#: [id number] ID: [id number] JOB#: [id number] ACCT: [id number] cc:RUFINO GARZA M.D. > MTDD
[2018-03-14] MEDS: PIOGLITAZONE HCL 30 MG TABLET PO SCH (09:45)
[2018-03-14] MEDS: GUAIFENESIN 600 MG TABLET.SA PO SCH ×2 (09:46→22:03)
[2018-03-14] MEDS: GABAPENTIN 400 MG CAPSULE PO SCH ×3 (09:46→17:16)
[2018-03-14] MEDS: DULOXETINE HCL 30 MG CAPSULE.DR PO SCH ×2 (09:46→22:03)
[2018-03-14] MEDS: LOSARTAN POTASSIUM 50 MG TABLET PO SCH (09:46)
[2018-03-14] MEDS: TIOTROPIUM BROMIDE DPI 5 CAP/KIT (18 MCG/CAP) IH SCH (09:46)
[2018-03-14] MEDS: FLUTICASONE/SALMETEROL DISKUS 250-50 MCG/DOSE IH SCH ×2 (09:47→20:07)
[2018-03-14] MEDS: FAMOTIDINE 20 MG TABLET PO SCH ×2 (09:47→22:03)
[2018-03-14] MEDS: METOPROLOL SUCCINATE 50 MG TAB.SR.24H PO SCH (09:47)
[2018-03-14] MEDS: INSULIN LISPRO 100 UNIT/ML 3 ML VIAL SUBCUT SCH ×3 (09:47→18:41)
[2018-03-14] MEDS: MULTIVITAMIN TABLET PO SCH (09:47)
[2018-03-14] MEDS: INSULIN LISPRO 100 UNIT/ML 3 ML VIAL SUBCUT PRN ×3 (09:47→22:04)
[2018-03-14] MEDS: ASPIRIN 81 MG TABLET, ENT COATED PO SCH (09:47)
[2018-03-14] MEDS: CEFEPIME 2 GM/D5W RTU 2 GM/50 ML RTUPB IV SCH ×2 (09:48→22:12)
[2018-03-14] MEDS: ENOXAPARIN SODIUM INJ 40 MG/0.4 ML DISP.SYRIN SUBCUT SCH (09:48)
[2018-03-14] MEDS ORDERED: CANAGLIFLOZIN PO SCH (10:00)
[2018-03-14] MEDS ORDERED: (PENDING PHARMACY ID) (Pitavastatin Calcium [Livalo] 4 MG) PO SCH (10:00)
[2018-03-14] MEDS ORDERED: LINAGLIPTIN PO SCH ×2 (10:00)
[2018-03-14] MEDS ORDERED: AZITHROMYCIN 500 MG in DEXTROSE 5%-WATER 250 ML IV SCH (10:00)
--- NOTE | 2018-03-14 11:16 | PDOC PROGRESS REPORT ---
Subjective Progress Note for:: 03/14/18 Subjective:: pt is feeling much better Denied any chest pain denied any shortness of the breath Reason For Visit: COPD ACUTE EXCE Physical Exam Vital Signs: Temp Pulse Resp BP Pulse Ox 97.8 F 93 14 110/60 96 03/14/18 07:16 03/14/18 08:30 03/14/18 08:30 03/14/18 07:16 03/14/18 08:30 Intake & Output 03/13/18 03/14/18 03/15/18 06:59 06:59 06:59 Intake Total 550 Output Total 1650 Balance -1100 Weight 110.3 kg General appearance: PRESENT: no acute distress, well-developed, well-nourished Head exam: PRESENT: atraumatic, normocephalic Eye exam: PRESENT: conjunctiva pink, EOMI, PERRLA. ABSENT: scleral icterus Ear exam: PRESENT: normal external ear exam Mouth exam: PRESENT: moist, tongue midline Neck exam: PRESENT: full ROM. ABSENT: carotid bruit, JVD, lymphadenopathy, thyromegaly Respiratory exam: PRESENT: decreased breath sounds Cardiovascular exam: PRESENT: RRR. ABSENT: diastolic murmur, rubs, systolic murmur Vascular exam: PRESENT: normal capillary refill GI/Abdominal exam: PRESENT: normal bowel sounds, soft. ABSENT: distended, guarding, mass, organolmegaly, rebound, tenderness Rectal exam: PRESENT: deferred Extremities exam: ABSENT: pedal edema Neurological exam: PRESENT: alert, awake, oriented to person, oriented to place, oriented to time, oriented to situation, CN II-XII grossly intact. ABSENT: motor sensory deficit Psychiatric exam: PRESENT: appropriate affect, normal mood. ABSENT: homicidal ideation, suicidal ideation Skin exam: PRESENT: dry, intact, warm. ABSENT: cyanosis, rash Results Laboratory Results: 03/14/18 05:46 03/14/18 05:46 03/13/18 03/13/18 03/13/18 15:54 15:54 17:10 WBC 18.0 H RBC 4.66 Hgb 14.1 Hct 42.5 MCV 91 MCH 30.4 MCHC 33.3 RDW 16.2 H Plt Count 379 Seg Neutrophils % 77.7 Lymphocytes % 13.6 Monocytes % 5.2 Eosinophils % 2.9 Basophils % 0.6 Absolute Neutrophils 14.0 H Absolute Lymphocytes 2.4 Absolute Monocytes 0.9 Absolute Eosinophils 0.5 Absolute Basophils 0.1 Carbonic Acid HCO3/H2CO3 Ratio ABG pH ABG pCO2 ABG pO2 ABG HCO3 ABG O2 Saturation ABG Base Excess FiO2 Sodium 135.1 L Potassium 4.3 Chloride 98 Carbon Dioxide 28 Anion Gap 9 BUN 17 Creatinine 1.29 H Est GFR ( Amer) 49 L Est GFR (Non-Af Amer) 41 L Glucose 235 H Calcium 10.0 Total Bilirubin 0.9 AST 26 ALT 16 Alkaline Phosphatase 123 Total Protein 7.9 Albumin 4.1 Urine Color YELLOW Urine Appearance CLEAR Urine pH 6.0 Ur Specific [place] 1.009 Urine Protein NEGATIVE Urine Glucose (UA) >=500 H Urine Ketones NEGATIVE Urine Blood NEGATIVE Urine Nitrite NEGATIVE Ur Leukocyte Esterase NEGATIVE Urine WBC (Auto) 0 03/13/18 03/14/18 03/14/18 18:20 05:46 05:46 WBC 12.1 H RBC 4.33 Hgb 13.1 Hct 39.1 MCV 90 MCH 30.2 MCHC 33.4 RDW 16.1 H Plt Count 241 Seg Neutrophils % 90.3 H Lymphocytes % 8.9 L Monocytes % 0.7 L Eosinophils % 0.0 Basophils % 0.1 Absolute Neutrophils 10.9 H Absolute Lymphocytes 1.1 Absolute Monocytes 0.1 Absolute Eosinophils 0.0 Absolute Basophils 0.0 Carbonic Acid 1.47 H HCO3/H2CO3 Ratio 17:1 ABG pH 7.33 L ABG pCO2 48.7 H ABG pO2 98.3 ABG HCO3 25.1 H ABG O2 Saturation 97.0 ABG Base Excess -1.3 FiO2 40% Sodium 136.9 L Potassium 4.7 Chloride 103 Carbon Dioxide 24 Anion Gap 10 BUN 21 H Creatinine 1.08 Est GFR ( Amer) > 60 Est GFR (Non-Af Amer) 50 L Glucose 246 H Calcium 9.5 Total Bilirubin AST ALT Alkaline Phosphatase Total Protein Albumin Urine Color Urine Appearance Urine pH Ur Specific [place] Urine Protein Urine Glucose (UA) Urine Ketones Urine Blood Urine Nitrite Ur Leukocyte Esterase Urine WBC (Auto) 03/14/18 07:05 WBC RBC Hgb Hct MCV MCH MCHC RDW Plt Count Seg Neutrophils % Lymphocytes % Monocytes % Eosinophils % Basophils % Absolute Neutrophils Absolute Lymphocytes Absolute Monocytes Absolute Eosinophils Absolute Basophils Carbonic Acid 1.42 H HCO3/H2CO3 Ratio 17:1 ABG pH 7.34 L ABG pCO2 47.2 H ABG pO2 151.0 H ABG HCO3 24.6 H ABG O2 Saturation 98.8 H ABG Base Excess -1.6 FiO2 40% Sodium Potassium Chloride Carbon Dioxide Anion Gap BUN Creatinine Est GFR ( Amer) Est GFR (Non-Af Amer) Glucose Calcium Total Bilirubin AST ALT Alkaline Phosphatase Total Protein Albumin Urine Color Urine Appearance Urine pH Ur Specific [place] Urine Protein Urine Glucose (UA) Urine Ketones Urine Blood Urine Nitrite Ur Leukocyte Esterase Urine WBC (Auto) 03/13/18 03/13/18 03/13/18 15:54 15:54 22:11 Creatine Kinase < 20 L 20 L CK-MB (CK-2) 0.93 Troponin I < 0.012 03/13/18 03/13/18 03/14/18 22:11 23:40 05:46 Creatine Kinase CK-MB (CK-2) Cancelled 0.71 0.65 Troponin I Cancelled < 0.012 < 0.012 03/14/18 05:46 Creatine Kinase < 20 L CK-MB (CK-2) Troponin I Impressions: Chest X-Ray 03/13/18 15:54 IMPRESSION: NO ACUTE RADIOGRAPHIC FINDING IN THE CHEST. Assessment & Plan - Diagnosis (1) COPD exacerbation Is this a current diagnosis for this admission?: Yes Plan: Patient is currently doing much better continues to nebulizer treatments (2) Acute hypoxemic respiratory failure Is this a current diagnosis for this admission?: Yes Plan: Put the patient on a BiPAP consult the pulmonary (3) Systemic inflammatory response syndrome (SIRS) Is this a current diagnosis for this admission?: Yes Plan: Possible underlying pneumonia will get the blood culture urine culture sputum culture start the patient on a community-acquired pneumonia protocol antibiotic (4) Type 2 diabetes mellitus with complication Qualifiers: Diabetes mellitus respiratory director insulin use: with respiratory director use Qualified Code(s): E11.8 - Type 2 diabetes mellitus with unspecified complications Is this a current diagnosis for this admission?: Yes Plan: The patient on the sliding scales - Time Time Spent with patient: 15-24 minutes Medications reviewed and adjusted accordingly: Yes Anticipated discharge: Home - Plan Summary Plan Summary: Continues to current medications no other nursing concern
[2018-03-14 12:56] LABS: CREATINE KINASE MB 0.82 ng/mL (<4.55)
[2018-03-14 13:07] LABS: TROPONIN I < 0.012 ng/mL
[2018-03-14] MEDS: MAG HYDROX/AL HYDROX/SIMETH SUSP 30 ML UDCUP PO PRN (17:16)
[2018-03-14] MEDS ORDERED: INSULIN DETEMIR 100 UNIT/ML 3 ML PEN SUBCUT SCH (18:00)
[2018-03-14] MEDS: AZITHROMYCIN 500 MG in DEXTROSE 5%-WATER 250 ML IV SCH (18:27)
[2018-03-14] MEDS: INSULIN DETEMIR 100 UNIT/ML 3 ML PEN SUBCUT SCH (18:42)
[2018-03-14] MEDS: ACETAMINOPHEN 325 MG TABLET PO PRN (22:02)
[2018-03-15] MEDS: IPRATROPIUM/ALBUTEROL 0.5-2.5 MG/3 ML AMPUL NEB SCH ×6 (00:11→20:33)
--- NOTE | 2018-03-15 00:17 | PROGRESS NOTE E ---
Progress Note NAME: DARCY NAVA : 1945 AGE: 72Y DATE: 03/14/2018 ROOM: 319 SUBJECTIVE: The patient is a 72-year-old female who came in yesterday for severe COPD exacerbation, acute respiratory failure requiring BiPAP therapy. Currently improving, currently on nasal cannula and feeling better. Denies any fever for the last 24 hours. No nausea, vomiting, diarrhea. No chest pain, no worsening dyspnea, no worsening purulent sputum production. OBJECTIVE: GENERAL: The patient is awake, alert, oriented x3. VITAL SIGNS: Afebrile, not in apparent severe respiratory distress with a temperature of 99.3 with a heart rate of 88, blood pressure is 105/58, and respiratory 15, oxygen saturation is 99% on 2 liters nasal cannula. EYES: No jaundice or pallor. EARS, NOSE, AND THROAT: No ear drainage. No nasal discharge. CHEST AND LUNGS: No wheezing, no rhonchi, no coarse crackles. CARDIOVASCULAR: S1, S2 distinct. Normal rate and regular rhythm. ABDOMEN: Flabby, positive bowel sounds, soft, nondistended, nontender. EXTREMITIES: No joint swelling, no cellulitis. LABORATORY DATA: Blood culture; no growth in the last 24 hours. CBC done today showed a white count of 12.1 down from 18,000; hemoglobin is 13.1; hematocrit is 39.1; platelet count is 241. ABG done this morning showed pH of 7.34, pCO2 of 47.2, pO2 of 151, and ABG oxygen saturation is 98.8, bicarb is 24.6 on FiO2 of 40%. Chemistry done this morning showed sodium is 136.9, potassium 4.7, chloride 103, CO2 is 24, BUN is 21, creatinine is 1.08, glucose is 246, and calcium is 9.5. ASSESSMENT: 1. ACUTE RESPIRATORY FAILURE REQUIRING BIPAP THERAPY, CURRENTLY IMPROVED AND STABLE. 2. COPD/BRONCHIAL ASTHMA EXACERBATION, CURRENTLY IMPROVED NOW AND NOT IN APPARENT BRONCHOSPASM. PLAN/RECOMMENDATION: 1. Continue Advair 250/50 DiskHaler one puff b.i.d. 2. Continue Spiriva inhaler 1 capsule daily. 3. Taper prednisone to 40 mg IV q.8. 4. Continue IV antibiotics. DICTATING PHYSICIAN: RUFINO GARZA MD,SUSIE,MPH [id number] PHY#: [id number] ID: [id number] JOB#: [id number] ACCT: [id number] cc: > ISAACD
[2018-03-15 05:06] LABS: ABSOLUTE LYMPHOCYTES (AUTO) 1.1 10^3/uL (0.5-4.7); ABSOLUTE MONOCYTES (AUTO) 0.3 10^3/uL (0.1-1.4); ABSOLUTE NEUT (AUTO) 14.3 10^3/uL (1.7-8.2); HEMATOCRIT 36.2 % (36.0-47.0); LYMPHOCYTES % (AUTO) 6.8 % (13-45); MEAN CORPUSCULAR HEMOGLOBIN 29.8 pg (27.0-33.4); MEAN CORPUSCULAR HGB CONC 33.2 g/dL (32.0-36.0); MEAN CORPUSCULAR VOLUME 90 fl (80-97); MONOCYTES % (AUTO) 2.1 % (3-13); PLATELET COUNT 245 10^3/uL (150-450); RED BLOOD COUNT 4.03 10^6/uL (3.72-5.28); RED CELL DISTRIBUTION WIDTH 16.3 % (11.5-14.0); SEGMENTED NEUTROPHILS % (AUTO) 91.1 % (42-78); TOTAL CELLS COUNTED % (AUTO) 100 %; WHITE BLOOD COUNT 15.7 10^3/uL (4.0-10.5)
[2018-03-15 05:32] LABS: ANION GAP 7 (5-19); CALCIUM 9.2 mg/dL (8.4-10.2); CARBON DIOXIDE 28 mmol/L (22-30); CHLORIDE 102 mmol/L (98-107); GLUCOSE 203 mg/dL (75-110); POTASSIUM 4.9 mmol/L (3.6-5.0); SODIUM 136.9 mmol/L (137-145)
[2018-03-15] MEDS: METHYLPREDNISOLONE INJ 40 MG/1 ML SDV IV SCH ×3 (06:16→21:11)
[2018-03-15 06:28] LABS: BLOOD UREA NITROGEN 42 mg/dL (7-20)
[2018-03-15] MEDS: TIOTROPIUM BROMIDE DPI 5 CAP/KIT (18 MCG/CAP) IH SCH (08:39)
[2018-03-15] MEDS: FLUTICASONE/SALMETEROL DISKUS 250-50 MCG/DOSE IH SCH ×2 (08:40→21:11)
[2018-03-15] MEDS: INSULIN LISPRO 100 UNIT/ML 3 ML VIAL SUBCUT SCH ×3 (08:40→17:16)
[2018-03-15] MEDS: INSULIN LISPRO 100 UNIT/ML 3 ML VIAL SUBCUT PRN ×4 (08:40→21:16)
[2018-03-15] MEDS: PIOGLITAZONE HCL 30 MG TABLET PO SCH (08:41)
[2018-03-15] MEDS: CEFEPIME 2 GM/D5W RTU 2 GM/50 ML RTUPB IV SCH ×2 (10:57→21:11)
[2018-03-15] MEDS: LOSARTAN POTASSIUM 50 MG TABLET PO SCH (10:57)
[2018-03-15] MEDS: FAMOTIDINE 20 MG TABLET PO SCH ×2 (10:58→21:10)
[2018-03-15] MEDS: GUAIFENESIN 600 MG TABLET.SA PO SCH ×2 (10:58→21:10)
[2018-03-15] MEDS: ASPIRIN 81 MG TABLET, ENT COATED PO SCH (10:58)
[2018-03-15] MEDS: METOPROLOL SUCCINATE 50 MG TAB.SR.24H PO SCH (10:58)
[2018-03-15] MEDS: SITAGLIPTIN PHOSPHATE 50 MG TABLET PO SCH (10:58)
[2018-03-15] MEDS: MULTIVITAMIN TABLET PO SCH (10:58)
[2018-03-15] MEDS: GABAPENTIN 400 MG CAPSULE PO SCH ×3 (10:58→17:16)
[2018-03-15] MEDS: ENOXAPARIN SODIUM INJ 40 MG/0.4 ML DISP.SYRIN SUBCUT SCH (10:58)
[2018-03-15] MEDS: DULOXETINE HCL 30 MG CAPSULE.DR PO SCH ×2 (11:01→21:10)
--- NOTE | 2018-03-15 11:36 | PDOC PROGRESS REPORT ---
Subjective Progress Note for:: 03/15/18 Subjective:: pt is feeling much better Denied any chest pain denied any shortness of the breath Reason For Visit: COPD ACUTE EXCE Physical Exam Vital Signs: Temp Pulse Resp BP Pulse Ox 97.7 F 75 16 104/56 L 98 03/15/18 07:26 03/15/18 08:59 03/15/18 08:59 03/15/18 07:26 03/15/18 08:59 Intake & Output 03/14/18 03/15/18 03/16/18 06:59 06:59 06:59 Intake Total 550 1334 Output Total 1650 1450 Balance -1100 -116 Weight 110.3 kg 111.3 kg General appearance: PRESENT: no acute distress, well-developed, well-nourished Head exam: PRESENT: atraumatic, normocephalic Eye exam: PRESENT: conjunctiva pink, EOMI, PERRLA. ABSENT: scleral icterus Ear exam: PRESENT: normal external ear exam Mouth exam: PRESENT: moist, tongue midline Neck exam: PRESENT: full ROM. ABSENT: carotid bruit, JVD, lymphadenopathy, thyromegaly Respiratory exam: PRESENT: clear to auscultation [place] Cardiovascular exam: PRESENT: RRR. ABSENT: diastolic murmur, rubs, systolic murmur Pulses: PRESENT: normal dorsalis pedis pul, +2 pedal pulses bilateral Vascular exam: PRESENT: normal capillary refill GI/Abdominal exam: PRESENT: normal bowel sounds, soft. ABSENT: distended, guarding, mass, organolmegaly, rebound, tenderness Rectal exam: PRESENT: deferred Extremities exam: ABSENT: pedal edema Neurological exam: PRESENT: alert, awake, oriented to person, oriented to place, oriented to time, oriented to situation, CN II-XII grossly intact. ABSENT: motor sensory deficit Psychiatric exam: PRESENT: appropriate affect, normal mood. ABSENT: homicidal ideation, suicidal ideation Skin exam: PRESENT: dry, intact, warm. ABSENT: cyanosis, rash Results Laboratory Results: 03/15/18 04:18 03/15/18 04:18 03/15/18 03/15/18 04:18 04:18 WBC 15.7 H RBC 4.03 Hgb 12.0 Hct 36.2 MCV 90 MCH 29.8 MCHC 33.2 RDW 16.3 H Plt Count 245 Seg Neutrophils % 91.1 H Lymphocytes % 6.8 L Monocytes % 2.1 L Eosinophils % 0.0 Basophils % 0.0 Absolute Neutrophils 14.3 H Absolute Lymphocytes 1.1 Absolute Monocytes 0.3 Absolute Eosinophils 0.0 Absolute Basophils 0.0 Sodium 136.9 L Potassium 4.9 Chloride 102 Carbon Dioxide 28 Anion Gap 7 BUN 42 H D Creatinine 1.50 H Est GFR ( Amer) 41 L Est GFR (Non-Af Amer) 34 L Glucose 203 H Calcium 9.2 03/13/18 03/13/18 03/13/18 15:54 15:54 22:11 Creatine Kinase < 20 L 20 L CK-MB (CK-2) 0.93 Troponin I < 0.012 03/13/18 03/13/18 03/14/18 22:11 23:40 05:46 Creatine Kinase CK-MB (CK-2) Cancelled 0.71 0.65 Troponin I Cancelled < 0.012 < 0.012 03/14/18 03/14/18 03/14/18 05:46 11:59 11:59 Creatine Kinase < 20 L 58 CK-MB (CK-2) 0.82 Troponin I < 0.012 Impressions: Chest X-Ray 03/13/18 15:54 IMPRESSION: NO ACUTE RADIOGRAPHIC FINDING IN THE CHEST. Assessment & Plan - Diagnosis (1) COPD exacerbation Is this a current diagnosis for this admission?: Yes Plan: Patient is currently doing much better continues to nebulizer treatments (2) Acute hypoxemic respiratory failure Is this a current diagnosis for this admission?: Yes Plan: Put the patient on a BiPAP consult the pulmonary (3) Systemic inflammatory response syndrome (SIRS) Is this a current diagnosis for this admission?: Yes Plan: Possible underlying pneumonia will get the blood culture urine culture sputum culture start the patient on a community-acquired pneumonia protocol antibiotic (4) Type 2 diabetes mellitus with complication Qualifiers: Diabetes mellitus terminal carman insulin use: with detention use Qualified Code(s): E11.8 - Type 2 diabetes mellitus with unspecified complications Is this a current diagnosis for this admission?: Yes Plan: The patient on the sliding scales - Time Time Spent with patient: 15-24 minutes Medications reviewed and adjusted accordingly: Yes - Plan Summary Plan Summary: cont curr med
[2018-03-15] MEDS: AZITHROMYCIN 500 MG in DEXTROSE 5%-WATER 250 ML IV SCH (17:16)
[2018-03-15] MEDS: INSULIN DETEMIR 100 UNIT/ML 3 ML PEN SUBCUT SCH (17:18)
--- NOTE | 2018-03-15 20:21 | PROGRESS NOTE E ---
Progress Note NAME: DARCY NAVA : 1945 AGE: 72Y DATE: 03/15/2018 ROOM: 319 SUBJECTIVE: The patient is a 72-year-old female who came with acute respiratory failure requiring noninvasive mechanical ventilation on BiPAP therapy. Currently improved. Currently on nasal cannula. Claims that she is breathing better. Denies any fever, chills, increased coughing, purulent sputum production, hemoptysis. No abdominal pain. No chest pain. OBJECTIVE: GENERAL: The patient is awake, alert, coherent, oriented x3. VITAL SIGNS: Afebrile, not in apparent respiratory distress with a temperature of 97.5 with a T-max of 99 degrees Fahrenheit, heart rate of 71, blood pressure is 91/68, and respiratory 16, saturation 97% on 2 liters nasal cannula. EYES: No jaundice or pallor. EARS, NOSE, AND THROAT: No ear drainage. No nasal discharge. CHEST AND LUNGS: No wheezing, no rhonchi, no coarse crackles. CARDIOVASCULAR: S1, S2 distinct. Normal rate and regular rhythm. ABDOMEN: Flabby, positive bowel sounds, soft, nondistended, nontender. EXTREMITIES: No joint swelling, no cellulitis. LABORATORY DATA: CBC done today showed a white count of 15.7, hemoglobin is 12, hematocrit is 36.2, platelet count is 245. Chemistry done today showed sodium is 136.9, potassium 4.9, chloride 102, CO2 is 28, BUN is 42, creatinine is 1.5, glucose is 203, and calcium is 9.2. ASSESSMENT: 1. ACUTE RESPIRATORY FAILURE REQUIRING NONINVASIVE MECHANICAL VENTILATION ON BIPAP THERAPY, CURRENTLY IMPROVED. 2. COPD AND ACUTE BRONCHIAL ASTHMA, CURRENTLY IMPROVED AND CURRENTLY NOT IN ACUTE BRONCHOSPASM. PLAN/RECOMMENDATION: 1. Continue Advair 250 DiskHaler one puff bid 2. Continue Spiriva inhaler 1 capsule daily. 3. Taper Solu-Medrol to p.o. prednisone. 4. Will sign off tonight. If you have any questions please feel free to call me. DICTATING PHYSICIAN: KAVYA LUCIA,SUSIE,MPH [id number] [id number] PHY#: [id number] ID: [id number] JOB#: [id number] ACCT: [id number] cc: > MTDD
[2018-03-16] MEDS: IPRATROPIUM/ALBUTEROL 0.5-2.5 MG/3 ML AMPUL NEB SCH ×6 (00:32→20:25)
[2018-03-16] MEDS: METHYLPREDNISOLONE INJ 40 MG/1 ML SDV IV SCH ×2 (05:46→14:04)
[2018-03-16 06:04] LABS: ABSOLUTE LYMPHOCYTES (AUTO) 1.1 10^3/uL (0.5-4.7); ABSOLUTE MONOCYTES (AUTO) 0.5 10^3/uL (0.1-1.4); ABSOLUTE NEUT (AUTO) 9.5 10^3/uL (1.7-8.2); HEMATOCRIT 36.4 % (36.0-47.0); HEMOGLOBIN 11.9 g/dL (12.0-15.5); LYMPHOCYTES % (AUTO) 9.6 % (13-45); MEAN CORPUSCULAR HEMOGLOBIN 29.7 pg (27.0-33.4); MEAN CORPUSCULAR HGB CONC 32.7 g/dL (32.0-36.0); MEAN CORPUSCULAR VOLUME 91 fl (80-97); MONOCYTES % (AUTO) 4.4 % (3-13); PLATELET COUNT 247 10^3/uL (150-450); RED CELL DISTRIBUTION WIDTH 16.8 % (11.5-14.0); TOTAL CELLS COUNTED % (AUTO) 100 %; WHITE BLOOD COUNT 11.1 10^3/uL (4.0-10.5)
[2018-03-16 06:24] LABS: ANION GAP 6 (5-19); BLOOD UREA NITROGEN 42 mg/dL (7-20); CARBON DIOXIDE 24 mmol/L (22-30); CHLORIDE 106 mmol/L (98-107); GLUCOSE 206 mg/dL (75-110); POTASSIUM 4.9 mmol/L (3.6-5.0)
[2018-03-16] MEDS: INSULIN LISPRO 100 UNIT/ML 3 ML VIAL SUBCUT SCH ×3 (08:43→19:02)
[2018-03-16] MEDS: INSULIN LISPRO 100 UNIT/ML 3 ML VIAL SUBCUT PRN ×2 (08:44→19:03)
[2018-03-16] MEDS: FLUTICASONE/SALMETEROL DISKUS 250-50 MCG/DOSE IH SCH ×2 (11:30→20:43)
[2018-03-16] MEDS: PIOGLITAZONE HCL 30 MG TABLET PO SCH (11:30)
[2018-03-16] MEDS: TIOTROPIUM BROMIDE DPI 5 CAP/KIT (18 MCG/CAP) IH SCH ×2 (11:31→20:16)
[2018-03-16] MEDS: SITAGLIPTIN PHOSPHATE 50 MG TABLET PO SCH (11:34)
[2018-03-16] MEDS: METOPROLOL SUCCINATE 50 MG TAB.SR.24H PO SCH (11:35)
[2018-03-16] MEDS: LOSARTAN POTASSIUM 50 MG TABLET PO SCH (11:35)
[2018-03-16] MEDS: GABAPENTIN 400 MG CAPSULE PO SCH ×3 (11:37→18:59)
[2018-03-16] MEDS: DULOXETINE HCL 30 MG CAPSULE.DR PO SCH ×2 (11:37→21:42)
[2018-03-16] MEDS: MULTIVITAMIN TABLET PO SCH (11:38)
[2018-03-16] MEDS: GUAIFENESIN 600 MG TABLET.SA PO SCH ×2 (11:39→21:42)
[2018-03-16] MEDS: ASPIRIN 81 MG TABLET, ENT COATED PO SCH (11:39)
[2018-03-16] MEDS: CEFEPIME 2 GM/D5W RTU 2 GM/50 ML RTUPB IV SCH ×2 (11:39→21:42)
[2018-03-16] MEDS: FAMOTIDINE 20 MG TABLET PO SCH ×2 (11:39→21:42)
[2018-03-16] MEDS: ENOXAPARIN SODIUM INJ 40 MG/0.4 ML DISP.SYRIN SUBCUT SCH (11:40)
[2018-03-16] MEDS: INSULIN DETEMIR 100 UNIT/ML 3 ML PEN SUBCUT SCH (19:00)
[2018-03-16] MEDS: AZITHROMYCIN 500 MG in DEXTROSE 5%-WATER 250 ML IV SCH (19:01)
[2018-03-16] MEDS: ACETAMINOPHEN 325 MG TABLET PO PRN (20:39)
--- NOTE | 2018-03-16 20:43 | PDOC PROGRESS REPORT ---
Subjective Progress Note for:: 03/16/18 Subjective:: Patient was seen by the bedside she was admitted over the weekend when she presented with acute hypercapnic respiratory failure due to COPD exacerbation. She is a very elevated spirits today Reason For Visit: COPD ACUTE EXCE Physical Exam Vital Signs: Temp Pulse Resp BP Pulse Ox 97.8 F 88 18 116/58 L 100 03/16/18 19:32 03/16/18 19:32 03/16/18 19:32 03/16/18 19:32 03/16/18 19:32 Intake & Output 03/15/18 03/16/18 03/17/18 06:59 06:59 06:59 Intake Total 1334 1831 1249 Output Total 1450 2025 900 Balance -116 -194 349 Weight 111.3 kg 112.2 kg General appearance: PRESENT: no acute distress Eye exam: PRESENT: PERRLA Respiratory exam: PRESENT: clear to auscultation [place] Cardiovascular exam: PRESENT: +S1, +S2 GI/Abdominal exam: PRESENT: soft Neurological exam: PRESENT: alert Results Laboratory Results: 03/16/18 05:45 03/16/18 05:45 03/16/18 03/16/18 05:45 05:45 WBC 11.1 H RBC 4.00 Hgb 11.9 L Hct 36.4 MCV 91 MCH 29.7 MCHC 32.7 RDW 16.8 H Plt Count 247 Seg Neutrophils % 86.0 H Lymphocytes % 9.6 L Monocytes % 4.4 Eosinophils % 0.0 Basophils % 0.0 Absolute Neutrophils 9.5 H Absolute Lymphocytes 1.1 Absolute Monocytes 0.5 Absolute Eosinophils 0.0 Absolute Basophils 0.0 Sodium 136.0 L Potassium 4.9 Chloride 106 Carbon Dioxide 24 Anion Gap 6 BUN 42 H Creatinine 0.89 Est GFR ( Amer) > 60 Est GFR (Non-Af Amer) > 60 Glucose 206 H Calcium 9.0 03/13/18 03/13/18 03/13/18 15:54 15:54 22:11 Creatine Kinase < 20 L 20 L CK-MB (CK-2) 0.93 Troponin I < 0.012 03/13/18 03/13/18 03/14/18 22:11 23:40 05:46 Creatine Kinase CK-MB (CK-2) Cancelled 0.71 0.65 Troponin I Cancelled < 0.012 < 0.012 03/14/18 03/14/18 03/14/18 05:46 11:59 11:59 Creatine Kinase < 20 L 58 CK-MB (CK-2) 0.82 Troponin I < 0.012 Impressions: Chest X-Ray 03/13/18 15:54 IMPRESSION: NO ACUTE RADIOGRAPHIC FINDING IN THE CHEST. Assessment & Plan - Diagnosis (1) Acute hypercapnic respiratory failure Is this a current diagnosis for this admission?: Yes Plan: She is presently not requiring noninvasive positive pressure ventilation, on oxygen via nasal cannula (2) COPD exacerbation Is this a current diagnosis for this admission?: Yes Plan: , The lung is clear, Solu-Medrol IV be discontinued transition to p.o. prednisone (3) Diabetes mellitus type 2 in obese Is this a current diagnosis for this admission?: Yes
[2018-03-17] MEDS: IPRATROPIUM/ALBUTEROL 0.5-2.5 MG/3 ML AMPUL NEB SCH ×6 (00:48→19:46)
[2018-03-17] MEDS: MAG HYDROX/AL HYDROX/SIMETH SUSP 30 ML UDCUP PO PRN (03:41)
[2018-03-17] MEDS: PIOGLITAZONE HCL 30 MG TABLET PO SCH (08:24)
[2018-03-17] MEDS: INSULIN LISPRO 100 UNIT/ML 3 ML VIAL SUBCUT SCH ×3 (08:25→17:10)
[2018-03-17] MEDS: FLUTICASONE/SALMETEROL DISKUS 250-50 MCG/DOSE IH SCH ×2 (08:25→21:06)
[2018-03-17] MEDS: INSULIN LISPRO 100 UNIT/ML 3 ML VIAL SUBCUT PRN ×3 (08:27→23:37)
[2018-03-17] MEDS: GABAPENTIN 400 MG CAPSULE PO SCH ×3 (11:40→17:14)
[2018-03-17] MEDS: DULOXETINE HCL 30 MG CAPSULE.DR PO SCH ×2 (11:41→21:07)
[2018-03-17] MEDS: TIOTROPIUM BROMIDE DPI 5 CAP/KIT (18 MCG/CAP) IH SCH (11:42)
[2018-03-17] MEDS: GUAIFENESIN 600 MG TABLET.SA PO SCH ×2 (11:43→21:07)
[2018-03-17] MEDS: PREDNISONE 20 MG TABLET PO SCH (11:43)
[2018-03-17] MEDS: MULTIVITAMIN TABLET PO SCH (11:44)
[2018-03-17] MEDS: ASPIRIN 81 MG TABLET, ENT COATED PO SCH (11:44)
[2018-03-17] MEDS: SITAGLIPTIN PHOSPHATE 50 MG TABLET PO SCH (11:44)
[2018-03-17] MEDS: FAMOTIDINE 20 MG TABLET PO SCH ×2 (11:45→21:07)
[2018-03-17] MEDS: ENOXAPARIN SODIUM INJ 40 MG/0.4 ML DISP.SYRIN SUBCUT SCH (11:47)
[2018-03-17] MEDS: CEFEPIME 2 GM/D5W RTU 2 GM/50 ML RTUPB IV SCH ×2 (11:49→21:09)
[2018-03-17] MEDS: LOSARTAN POTASSIUM 50 MG TABLET PO SCH (17:01)
[2018-03-17] MEDS: METOPROLOL SUCCINATE 50 MG TAB.SR.24H PO SCH (17:01)
[2018-03-17] MEDS: AZITHROMYCIN 500 MG in DEXTROSE 5%-WATER 250 ML IV SCH (17:09)
[2018-03-17] MEDS: INSULIN DETEMIR 100 UNIT/ML 3 ML PEN SUBCUT SCH (18:48)
--- NOTE | 2018-03-17 21:56 | PDOC PROGRESS REPORT ---
Subjective Progress Note for:: 03/17/18 Subjective:: Patient was seen by the bedside, the blood pressure is on the low side medication was held today Reason For Visit: COPD ACUTE EXCE Physical Exam Vital Signs: Temp Pulse Resp BP Pulse Ox 98.1 F 94 22 H 108/60 98 03/17/18 19:51 03/17/18 19:51 03/17/18 19:51 03/17/18 19:51 03/17/18 19:51 Intake & Output 03/16/18 03/17/18 03/18/18 06:59 06:59 06:59 Intake Total 183 1899 300 Output Total 2024 1999 950 Balance -194 101 -650 Weight 112.2 kg 110.4 kg General appearance: PRESENT: no acute distress Eye exam: PRESENT: PERRLA Respiratory exam: PRESENT: clear to auscultation [place] Cardiovascular exam: PRESENT: +S1, +S2 GI/Abdominal exam: PRESENT: soft Neurological exam: PRESENT: alert Results Laboratory Results: 03/16/18 05:45 03/16/18 05:45 03/13/18 03/13/18 03/13/18 15:54 15:54 22:11 Creatine Kinase < 20 L 20 L CK-MB (CK-2) 0.93 Troponin I < 0.012 03/13/18 03/13/18 03/14/18 22:11 23:40 05:46 Creatine Kinase CK-MB (CK-2) Cancelled 0.71 0.65 Troponin I Cancelled < 0.012 < 0.012 03/14/18 03/14/18 03/14/18 05:46 11:59 11:59 Creatine Kinase < 20 L 58 CK-MB (CK-2) 0.82 Troponin I < 0.012 Impressions: Chest X-Ray 03/13/18 15:54 IMPRESSION: NO ACUTE RADIOGRAPHIC FINDING IN THE CHEST. Assessment & Plan - Diagnosis (1) Acute hypercapnic respiratory failure Is this a current diagnosis for this admission?: Yes (2) COPD exacerbation Is this a current diagnosis for this admission?: Yes Plan: Continue present treatment with p.o. prednisone (3) Diabetes mellitus type 2 in obese Is this a current diagnosis for this admission?: Yes
[2018-03-18] MEDS: IPRATROPIUM/ALBUTEROL 0.5-2.5 MG/3 ML AMPUL NEB SCH ×6 (00:10→20:37)
[2018-03-18] MEDS: ACETAMINOPHEN 325 MG TABLET PO PRN ×2 (05:15→19:38)
[2018-03-18] MEDS: FLUTICASONE/SALMETEROL DISKUS 250-50 MCG/DOSE IH SCH ×2 (09:24→19:39)
[2018-03-18] MEDS: SITAGLIPTIN PHOSPHATE 50 MG TABLET PO SCH (09:24)
[2018-03-18] MEDS: TIOTROPIUM BROMIDE DPI 5 CAP/KIT (18 MCG/CAP) IH SCH (09:24)
[2018-03-18] MEDS: GABAPENTIN 400 MG CAPSULE PO SCH ×3 (09:24→17:36)
[2018-03-18] MEDS: LOSARTAN POTASSIUM 50 MG TABLET PO SCH (09:25)
[2018-03-18] MEDS: PIOGLITAZONE HCL 30 MG TABLET PO SCH (09:25)
[2018-03-18] MEDS: ASPIRIN 81 MG TABLET, ENT COATED PO SCH (09:25)
[2018-03-18] MEDS: METOPROLOL SUCCINATE 50 MG TAB.SR.24H PO SCH (09:25)
[2018-03-18] MEDS: PREDNISONE 20 MG TABLET PO SCH (09:25)
[2018-03-18] MEDS: DULOXETINE HCL 30 MG CAPSULE.DR PO SCH ×2 (09:25→21:17)
[2018-03-18] MEDS: GUAIFENESIN 600 MG TABLET.SA PO SCH ×2 (09:25→21:17)
[2018-03-18] MEDS: CEFEPIME 2 GM/D5W RTU 2 GM/50 ML RTUPB IV SCH ×2 (09:26→21:21)
[2018-03-18] MEDS: MULTIVITAMIN TABLET PO SCH (09:26)
[2018-03-18] MEDS: FAMOTIDINE 20 MG TABLET PO SCH ×2 (09:26→21:17)
[2018-03-18] MEDS: ENOXAPARIN SODIUM INJ 40 MG/0.4 ML DISP.SYRIN SUBCUT SCH (09:35)
[2018-03-18] MEDS: INSULIN LISPRO 100 UNIT/ML 3 ML VIAL SUBCUT SCH ×3 (09:36→17:36)
[2018-03-18] MEDS: INSULIN LISPRO 100 UNIT/ML 3 ML VIAL SUBCUT PRN ×3 (13:00→22:18)
[2018-03-18] MEDS: INSULIN DETEMIR 100 UNIT/ML 3 ML PEN SUBCUT SCH (17:36)
[2018-03-18] MEDS: AZITHROMYCIN 500 MG in DEXTROSE 5%-WATER 250 ML IV SCH (17:56)
--- NOTE | 2018-03-18 21:29 | PDOC PROGRESS REPORT ---
Subjective Progress Note for:: 03/18/18 Subjective:: Patient seen by the bedside she is slowly improving, she will stay the weekend Reason For Visit: COPD ACUTE EXCE Physical Exam Vital Signs: Temp Pulse Resp BP Pulse Ox 98.7 F 82 18 103/59 L 97 03/18/18 19:16 03/18/18 20:37 03/18/18 20:37 03/18/18 19:16 03/18/18 20:37 Intake & Output 03/17/18 03/18/18 03/19/18 06:59 06:59 06:59 Intake Total 1899 668 537 Output Total 1999 2366 172 Balance -101 -1282 -5378 Weight 110.4 kg 113.1 kg General appearance: PRESENT: no acute distress Eye exam: PRESENT: PERRLA Respiratory exam: PRESENT: rhonchi Cardiovascular exam: PRESENT: +S1, +S2 GI/Abdominal exam: PRESENT: soft Neurological exam: PRESENT: alert, CN II-XII grossly intact Results Laboratory Results: 03/16/18 05:45 03/16/18 05:45 03/13/18 15:56 Blood Blood Culture - Final NO GROWTH IN 5 DAYS 03/13/18 15:56 Blood Blood Culture - Final NO GROWTH IN 5 DAYS 03/13/18 03/13/18 03/13/18 15:54 15:54 22:11 Creatine Kinase < 20 L 20 L CK-MB (CK-2) 0.93 Troponin I < 0.012 03/13/18 03/13/18 03/14/18 22:11 23:40 05:46 Creatine Kinase CK-MB (CK-2) Cancelled 0.71 0.65 Troponin I Cancelled < 0.012 < 0.012 03/14/18 03/14/18 03/14/18 05:46 11:59 11:59 Creatine Kinase < 20 L 58 CK-MB (CK-2) 0.82 Troponin I < 0.012 Impressions: Chest X-Ray 03/13/18 15:54 IMPRESSION: NO ACUTE RADIOGRAPHIC FINDING IN THE CHEST. Assessment & Plan - Diagnosis (1) Acute hypercapnic respiratory failure Is this a current diagnosis for this admission?: Yes (2) COPD exacerbation Is this a current diagnosis for this admission?: Yes Plan: Continue present treatment (3) Diabetes mellitus type 2 in obese Is this a current diagnosis for this admission?: Yes
[2018-03-19] MEDS: IPRATROPIUM/ALBUTEROL 0.5-2.5 MG/3 ML AMPUL NEB SCH ×6 (00:41→19:59)
[2018-03-19] MEDS: INSULIN LISPRO 100 UNIT/ML 3 ML VIAL SUBCUT SCH ×3 (09:25→17:20)
[2018-03-19] MEDS: FLUTICASONE/SALMETEROL DISKUS 250-50 MCG/DOSE IH SCH ×2 (09:39→21:19)
[2018-03-19] MEDS: CEFEPIME 2 GM/D5W RTU 2 GM/50 ML RTUPB IV SCH ×2 (09:39→21:22)
[2018-03-19] MEDS: ASPIRIN 81 MG TABLET, ENT COATED PO SCH (09:40)
[2018-03-19] MEDS: DULOXETINE HCL 30 MG CAPSULE.DR PO SCH ×2 (09:40→21:19)
[2018-03-19] MEDS: PIOGLITAZONE HCL 30 MG TABLET PO SCH (09:40)
[2018-03-19] MEDS: GUAIFENESIN 600 MG TABLET.SA PO SCH ×2 (09:40→21:19)
[2018-03-19] MEDS: MULTIVITAMIN TABLET PO SCH (09:40)
[2018-03-19] MEDS: ENOXAPARIN SODIUM INJ 40 MG/0.4 ML DISP.SYRIN SUBCUT SCH (09:40)
[2018-03-19] MEDS: SITAGLIPTIN PHOSPHATE 50 MG TABLET PO SCH (09:40)
[2018-03-19] MEDS: METOPROLOL SUCCINATE 50 MG TAB.SR.24H PO SCH (09:40)
[2018-03-19] MEDS: GABAPENTIN 400 MG CAPSULE PO SCH ×3 (09:40→17:20)
[2018-03-19] MEDS: FAMOTIDINE 20 MG TABLET PO SCH ×2 (09:41→21:19)
[2018-03-19] MEDS: LOSARTAN POTASSIUM 50 MG TABLET PO SCH (09:41)
[2018-03-19] MEDS: PREDNISONE 20 MG TABLET PO SCH (09:41)
[2018-03-19] MEDS: TIOTROPIUM BROMIDE DPI 5 CAP/KIT (18 MCG/CAP) IH SCH (13:05)
[2018-03-19] MEDS: INSULIN LISPRO 100 UNIT/ML 3 ML VIAL SUBCUT PRN (13:39)
--- NOTE | 2018-03-19 16:07 | PDOC PROGRESS REPORT ---
Subjective Progress Note for:: 03/19/18 Subjective:: Patient continue to experience wheezing and difficulty breathing. She remain on all appropriate asthma/COPD management regimen. She denied any fever or chills. No chest pain, No nausea, vomiting, or abdominal pain. Reason For Visit: COPD ACUTE EXCE Physical Exam Vital Signs: Temp Pulse Resp BP Pulse Ox 98.8 F 79 18 127/57 H 100 03/19/18 11:57 03/19/18 11:57 03/19/18 11:57 03/19/18 11:57 03/19/18 11:57 Intake & Output 03/18/18 03/19/18 03/20/18 06:59 06:59 06:59 Intake Total 668 1192 642 Output Total 1950 3450 1000 Balance -3012 -9928 -954 Weight 113.1 kg 111.2 kg General appearance: PRESENT: no acute distress, obese Head exam: PRESENT: atraumatic, normocephalic Eye exam: PRESENT: conjunctiva pink, EOMI, PERRLA. ABSENT: scleral icterus Ear exam: PRESENT: normal external ear exam Mouth exam: PRESENT: moist Respiratory exam: PRESENT: clear to auscultation [place] Cardiovascular exam: PRESENT: RRR. ABSENT: diastolic murmur, rubs, systolic murmur Vascular exam: PRESENT: normal capillary refill, pallor GI/Abdominal exam: PRESENT: normal bowel sounds, soft Extremities exam: ABSENT: pedal edema Neurological exam: PRESENT: alert, awake, oriented to person, oriented to place, oriented to time, oriented to situation, CN II-XII grossly intact. ABSENT: motor sensory deficit Psychiatric exam: PRESENT: appropriate affect, normal mood. ABSENT: homicidal ideation, suicidal ideation Skin exam: PRESENT: dry, warm Results Laboratory Results: 03/16/18 05:45 03/16/18 05:45 03/13/18 15:56 Blood Blood Culture - Final NO GROWTH IN 5 DAYS 03/13/18 15:56 Blood Blood Culture - Final NO GROWTH IN 5 DAYS 03/13/18 03/13/18 03/13/18 15:54 15:54 22:11 Creatine Kinase < 20 L 20 L CK-MB (CK-2) 0.93 Troponin I < 0.012 03/13/18 03/13/18 03/14/18 22:11 23:40 05:46 Creatine Kinase CK-MB (CK-2) Cancelled 0.71 0.65 Troponin I Cancelled < 0.012 < 0.012 03/14/18 03/14/18 03/14/18 05:46 11:59 11:59 Creatine Kinase < 20 L 58 CK-MB (CK-2) 0.82 Troponin I < 0.012 Impressions: Chest X-Ray 03/13/18 15:54 IMPRESSION: NO ACUTE RADIOGRAPHIC FINDING IN THE CHEST. Assessment & Plan - Diagnosis (1) Acute hypercapnic respiratory failure Is this a current diagnosis for this admission?: Yes Plan: Continue current medication management. (2) COPD with acute exacerbation Is this a current diagnosis for this admission?: Yes Plan: Continue current medication management. (3) Diabetes mellitus type 2 in obese Is this a current diagnosis for this admission?: Yes Plan: Continue current medication management. (4) Hypertension Qualifiers: Hypertension type: essential hypertension Qualified Code(s): I10 - Essential (primary) hypertension Is this a current diagnosis for this admission?: Yes Plan: Continue current medication management. - Time Time Spent with patient: 25-34 minutes Anticipated discharge: Home with Homehealth Within: Other - Inpatient Certification Based on my medical assessment, after consideration of the patient's comorbidities, presenting symptoms, or acuity I expect that the services needed warrant INPATIENT care.: Yes I certify that my determination is in accordance with my understanding of Medicare's requirements for reasonable and necessary INPATIENT services [42 CFR 412.3e].: Yes Medical Necessity: Need Close Monitoring Due to Risk of Patient Decompensation, Need For IV Fluids, Need For Continuous Telemetry Monitoring, Need for Nebulizer Therapy and Monitoring of Response, Need for IV Antibiotics Post Hospital Care: D/C Prefitter Doors Documentation - Plan Summary Plan Summary: Continue current medication management.
[2018-03-19] MEDS: INSULIN DETEMIR 100 UNIT/ML 3 ML PEN SUBCUT SCH (17:20)
[2018-03-19] MEDS: AZITHROMYCIN 500 MG in DEXTROSE 5%-WATER 250 ML IV SCH (17:20)
[2018-03-20] MEDS: IPRATROPIUM/ALBUTEROL 0.5-2.5 MG/3 ML AMPUL NEB SCH ×6 (00:15→19:50)
[2018-03-20] MEDS: INSULIN LISPRO 100 UNIT/ML 3 ML VIAL SUBCUT SCH ×3 (09:26→17:28)
[2018-03-20] MEDS: CEFEPIME 2 GM/D5W RTU 2 GM/50 ML RTUPB IV SCH (09:39)
[2018-03-20] MEDS: ENOXAPARIN SODIUM INJ 40 MG/0.4 ML DISP.SYRIN SUBCUT SCH (09:39)
[2018-03-20] MEDS: FAMOTIDINE 20 MG TABLET PO SCH ×2 (09:40→21:32)
[2018-03-20] MEDS: LOSARTAN POTASSIUM 50 MG TABLET PO SCH (09:40)
[2018-03-20] MEDS: PREDNISONE 20 MG TABLET PO SCH (09:40)
[2018-03-20] MEDS: METOPROLOL SUCCINATE 50 MG TAB.SR.24H PO SCH (09:40)
[2018-03-20] MEDS: SITAGLIPTIN PHOSPHATE 50 MG TABLET PO SCH (09:40)
[2018-03-20] MEDS: DULOXETINE HCL 30 MG CAPSULE.DR PO SCH ×2 (09:40→21:33)
[2018-03-20] MEDS: GABAPENTIN 400 MG CAPSULE PO SCH ×3 (09:40→17:27)
[2018-03-20] MEDS: TIOTROPIUM BROMIDE DPI 5 CAP/KIT (18 MCG/CAP) IH SCH (09:40)
[2018-03-20] MEDS: MULTIVITAMIN TABLET PO SCH (09:40)
[2018-03-20] MEDS: FLUTICASONE/SALMETEROL DISKUS 250-50 MCG/DOSE IH SCH ×2 (09:40→20:07)
[2018-03-20] MEDS: PIOGLITAZONE HCL 30 MG TABLET PO SCH (09:40)
[2018-03-20] MEDS: ASPIRIN 81 MG TABLET, ENT COATED PO SCH (09:40)
[2018-03-20] MEDS: GUAIFENESIN 600 MG TABLET.SA PO SCH ×2 (09:41→21:32)
--- NOTE | 2018-03-20 13:11 | PDOC PROGRESS REPORT ---
Subjective Progress Note for:: 03/20/18 Subjective:: Patient denied any chest pain or difficulty with breathing. There is concern about her AM hypoglycemic episodes. Patient reported that she is not getting DM snacks at night. No nausea, vomiting, or abdominal pain. No fever or chills. Reason For Visit: COPD ACUTE EXCE Physical Exam Vital Signs: Temp Pulse Resp BP Pulse Ox 98.4 F 73 16 120/66 93 03/20/18 11:51 03/20/18 11:51 03/20/18 11:51 03/20/18 11:51 03/20/18 11:51 Intake & Output 03/19/18 03/20/18 03/21/18 06:59 06:59 06:59 Intake Total 1192 1897 641 Output Total 3450 7715 280 Balance -4800 -7798 361 Weight 111.2 kg 109.8 kg Physical Exam: General appearance: PRESENT: no acute distress, obese Head exam: PRESENT: atraumatic, normocephalic Eye exam: PRESENT: conjunctiva pink, EOMI, PERRLA. ABSENT: pallor, scleral icterus Ear exam: PRESENT: normal external ear exam Mouth exam: PRESENT: moist Respiratory exam: PRESENT: clear to auscultation [place] Cardiovascular exam: PRESENT: RRR. ABSENT: diastolic murmur, rubs, systolic murmur GI/Abdominal exam: PRESENT: normal bowel sounds, soft Extremities exam: ABSENT: pedal edema Neurological exam: PRESENT: alert, awake, oriented to person, oriented to place, oriented to time, oriented to situation, CN II-XII grossly intact. ABSENT: motor sensory deficit Psychiatric exam: PRESENT: appropriate affect, normal mood. ABSENT: homicidal ideation, suicidal ideation Skin exam: PRESENT: dry, warm Results Laboratory Results: 03/16/18 05:45 03/16/18 05:45 03/13/18 03/13/18 03/13/18 15:54 15:54 22:11 Creatine Kinase < 20 L 20 L CK-MB (CK-2) 0.93 Troponin I < 0.012 03/13/18 03/13/18 03/14/18 22:11 23:40 05:46 Creatine Kinase CK-MB (CK-2) Cancelled 0.71 0.65 Troponin I Cancelled < 0.012 < 0.012 03/14/18 03/14/1803/14/18 05:46 11:59 11:59 Creatine Kinase < 20 L 58 CK-MB (CK-2) 0.82 Troponin I < 0.012 Impressions: Chest X-Ray 03/13/18 15:54 IMPRESSION: NO ACUTE RADIOGRAPHIC FINDING IN THE CHEST. Assessment & Plan - Diagnosis (1) Acute hypercapnic respiratory failure Is this a current diagnosis for this admission?: Yes (2) COPD with acute exacerbation Is this a current diagnosis for this admission?: Yes (3) Diabetes mellitus type 2 in obese Is this a current diagnosis for this admission?: Yes (4) Hypertension Qualifiers: Hypertension type: essential hypertension Qualified Code(s): I10 - Essential (primary) hypertension Is this a current diagnosis for this admission?: Yes - Time Time Spent with patient: 25-34 minutes Medications reviewed and adjusted accordingly: Yes Anticipated discharge: Home Within: Other - Inpatient Certification Based on my medical assessment, after consideration of the patient's comorbidities, presenting symptoms, or acuity I expect that the services needed warrant INPATIENT care.: Yes I certify that my determination is in accordance with my understanding of Medicare's requirements for reasonable and necessary INPATIENT services [42 CFR 412.3e].: Yes Medical Necessity: Need Close Monitoring Due to Risk of Patient Decompensation, Need For IV Fluids, Need For Continuous Telemetry Monitoring, Need for IV Antibiotics, Risk of Complication if Not Cared For in Hospital Post 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 Encouraged consumption of DM snack. Nursing staff reported that she was getting the snack but asking for more.
[2018-03-20] MEDS: AZITHROMYCIN 500 MG in DEXTROSE 5%-WATER 250 ML IV SCH (17:27)
[2018-03-20] MEDS: INSULIN DETEMIR 100 UNIT/ML 3 ML PEN SUBCUT SCH (17:27)
[2018-03-20] MEDS: INSULIN LISPRO 100 UNIT/ML 3 ML VIAL SUBCUT PRN (17:28)
[2018-03-20] MEDS: ACETAMINOPHEN 325 MG TABLET PO PRN (17:34)
[2018-03-21] MEDS: IPRATROPIUM/ALBUTEROL 0.5-2.5 MG/3 ML AMPUL NEB SCH ×6 (00:02→20:13)
[2018-03-21] MEDS: INSULIN LISPRO 100 UNIT/ML 3 ML VIAL SUBCUT SCH ×3 (08:39→17:34)
[2018-03-21] MEDS: DULOXETINE HCL 30 MG CAPSULE.DR PO SCH ×2 (09:00→22:50)
[2018-03-21] MEDS: PREDNISONE 20 MG TABLET PO SCH (09:01)
[2018-03-21] MEDS: PIOGLITAZONE HCL 30 MG TABLET PO SCH (09:01)
[2018-03-21] MEDS: ASPIRIN 81 MG TABLET, ENT COATED PO SCH (09:01)
[2018-03-21] MEDS: LOSARTAN POTASSIUM 50 MG TABLET PO SCH (09:01)
[2018-03-21] MEDS: GUAIFENESIN 600 MG TABLET.SA PO SCH ×2 (09:02→22:50)
[2018-03-21] MEDS: MULTIVITAMIN TABLET PO SCH (09:02)
[2018-03-21] MEDS: ENOXAPARIN SODIUM INJ 40 MG/0.4 ML DISP.SYRIN SUBCUT SCH (09:02)
[2018-03-21] MEDS: METOPROLOL SUCCINATE 50 MG TAB.SR.24H PO SCH (09:02)
[2018-03-21] MEDS: SITAGLIPTIN PHOSPHATE 50 MG TABLET PO SCH (09:02)
[2018-03-21] MEDS: FAMOTIDINE 20 MG TABLET PO SCH ×2 (09:02→22:50)
[2018-03-21] MEDS: GABAPENTIN 400 MG CAPSULE PO SCH ×3 (09:13→17:53)
[2018-03-21] MEDS: TIOTROPIUM BROMIDE DPI 5 CAP/KIT (18 MCG/CAP) IH SCH (09:14)
[2018-03-21] MEDS: FLUTICASONE/SALMETEROL DISKUS 250-50 MCG/DOSE IH SCH ×2 (09:18→22:51)
[2018-03-21] MEDS: INSULIN LISPRO 100 UNIT/ML 3 ML VIAL SUBCUT PRN (16:42)
[2018-03-21] MEDS: INSULIN DETEMIR 100 UNIT/ML 3 ML PEN SUBCUT SCH (17:48)
--- NOTE | 2018-03-21 20:08 | RADIOLOGY REPORT (SQ) ---
EXAM DESCRIPTION: CHEST SINGLE VIEW COMPLETED DATE/TIME: 03/21/2018 7:54 pm REASON FOR STUDY: pneumonia COMPARISON: None. EXAM PARAMETERS: NUMBER OF VIEWS: One view. TECHNIQUE: Single frontal radiographic view of the chest acquired. RADIATION DOSE: NA LIMITATIONS: None. FINDINGS: LUNGS AND PLEURA: No opacities, masses or pneumothorax. No pleural effusion. MEDIASTINUM AND HILAR STRUCTURES: No masses. Contour normal. HEART AND VASCULAR STRUCTURES: Heart normal in size. Normal vasculature. BONES: No acute findings. HARDWARE: None in the chest. OTHER: No other significant finding. IMPRESSION: NO ACUTE RADIOGRAPHIC FINDING IN THE CHEST. TECHNICAL DOCUMENTATION: JOB ID: [id number] [employer]- All Rights Reserved Reading location - IP/workstation name: [email or web address]
--- NOTE | 2018-03-21 20:54 | PDOC PROGRESS REPORT ---
Subjective Progress Note for:: 03/21/18 Subjective:: Patient was seen by the bedside, she said she does not feel well today, on auscultation of the chest there is diffuse wheeze, a stat chest x-ray was negative Reason For Visit: COPD ACUTE EXCE Physical Exam Vital Signs: Temp Pulse Resp BP Pulse Ox 98.6 F 77 20 131/57 H 95 03/21/18 19:00 03/21/18 19:00 03/21/18 19:00 03/21/18 19:00 03/21/18 19:00 Intake & Output 03/20/18 03/21/18 03/22/18 06:59 06:59 06:59 Intake Total 1897 1899 1820 Output Total 397 2305 1225 Balance -8 -406 595 Weight 109.8 kg 108 kg 108 kg General appearance: PRESENT: no acute distress Eye exam: PRESENT: PERRLA Respiratory exam: PRESENT: wheezes Cardiovascular exam: PRESENT: +S1, +S2 GI/Abdominal exam: PRESENT: soft Neurological exam: PRESENT: alert, CN II-XII grossly intact Results Laboratory Results: 03/16/18 05:45 03/16/18 05:45 03/13/18 03/13/18 03/13/18 15:54 15:54 22:11 Creatine Kinase < 20 L 20 L CK-MB (CK-2) 0.93 Troponin I < 0.012 03/13/18 03/13/18 03/14/18 22:11 23:40 05:46 Creatine Kinase CK-MB (CK-2) Cancelled 0.71 0.65 Troponin I Cancelled < 0.012 < 0.012 03/14/18 03/14/18 03/14/18 05:46 11:59 11:59 Creatine Kinase < 20 L 58 CK-MB (CK-2) 0.82 Troponin I < 0.012 Impressions: Chest X-Ray 03/21/18 17:27 IMPRESSION: NO ACUTE RADIOGRAPHIC FINDING IN THE CHEST. Assessment & Plan - Diagnosis (1) Acute hypercapnic respiratory failure Is this a current diagnosis for this admission?: Yes (2) COPD exacerbation Is this a current diagnosis for this admission?: Yes Plan: Chest x-ray showed no new infiltrate, continue present tapering dose of prednisone (3) Diabetes mellitus type 2 in obese Is this a current diagnosis for this admission?: Yes
[2018-03-21] MEDS: MAG HYDROX/AL HYDROX/SIMETH SUSP 30 ML UDCUP PO PRN (22:52)
[2018-03-22] MEDS: IPRATROPIUM/ALBUTEROL 0.5-2.5 MG/3 ML AMPUL NEB SCH ×6 (00:43→20:41)
[2018-03-22] MEDS: ACETAMINOPHEN 325 MG TABLET PO PRN (02:13)
[2018-03-22 10:33] LABS: ABSOLUTE BASOPHILS # (AUTO) 0.1 10^3/uL (0.0-0.2); ABSOLUTE EOSINOPHILS # (AUTO) 0.4 10^3/uL (0.0-0.6); ABSOLUTE LYMPHOCYTES (AUTO) 1.8 10^3/uL (0.5-4.7); ABSOLUTE MONOCYTES (AUTO) 0.9 10^3/uL (0.1-1.4); ABSOLUTE NEUT (AUTO) 5.8 10^3/uL (1.7-8.2); BASOPHILS % (AUTO) 0.7 % (0-2); EOSINOPHILS % (AUTO) 4.1 % (0-6); HEMATOCRIT 36.9 % (36.0-47.0); HEMOGLOBIN 12.3 g/dL (12.0-15.5); LYMPHOCYTES % (AUTO) 19.9 % (13-45); MEAN CORPUSCULAR HEMOGLOBIN 30.3 pg (27.0-33.4); MEAN CORPUSCULAR HGB CONC 33.3 g/dL (32.0-36.0); MEAN CORPUSCULAR VOLUME 91 fl (80-97); MONOCYTES % (AUTO) 10.4 % (3-13); PLATELET COUNT 248 10^3/uL (150-450); RED BLOOD COUNT 4.05 10^6/uL (3.72-5.28); RED CELL DISTRIBUTION WIDTH 16.5 % (11.5-14.0); SEGMENTED NEUTROPHILS % (AUTO) 64.9 % (42-78); TOTAL CELLS COUNTED % (AUTO) 100 %
[2018-03-22 11:00] LABS: ANION GAP 7 (5-19); BLOOD UREA NITROGEN 33 mg/dL (7-20); CALCIUM 9.2 mg/dL (8.4-10.2); CARBON DIOXIDE 29 mmol/L (22-30); CHLORIDE 102 mmol/L (98-107); GLUCOSE 123 mg/dL (75-110); SODIUM 137.7 mmol/L (137-145)
[2018-03-22] MEDS: MAG HYDROX/AL HYDROX/SIMETH SUSP 30 ML UDCUP PO PRN (11:04)
[2018-03-22] MEDS: SITAGLIPTIN PHOSPHATE 50 MG TABLET PO SCH (11:04)
[2018-03-22] MEDS: FAMOTIDINE 20 MG TABLET PO SCH ×2 (11:05→22:41)
[2018-03-22] MEDS: GUAIFENESIN 600 MG TABLET.SA PO SCH ×2 (11:05→22:41)
[2018-03-22] MEDS: DULOXETINE HCL 30 MG CAPSULE.DR PO SCH ×2 (11:05→22:40)
[2018-03-22 11:06] LABS: CREATINE KINASE < 20 U/L (30-135)
[2018-03-22] MEDS: ASPIRIN 81 MG TABLET, ENT COATED PO SCH (11:06)
[2018-03-22] MEDS: MULTIVITAMIN TABLET PO SCH (11:06)
[2018-03-22] MEDS: GABAPENTIN 400 MG CAPSULE PO SCH ×3 (11:07→19:32)
[2018-03-22] MEDS: PIOGLITAZONE HCL 30 MG TABLET PO SCH (11:07)
[2018-03-22] MEDS: PREDNISONE 20 MG TABLET PO SCH (11:07)
[2018-03-22] MEDS: ENOXAPARIN SODIUM INJ 40 MG/0.4 ML DISP.SYRIN SUBCUT SCH (11:07)
[2018-03-22] MEDS: FLUTICASONE/SALMETEROL DISKUS 250-50 MCG/DOSE IH SCH ×2 (11:08→20:17)
[2018-03-22] MEDS: TIOTROPIUM BROMIDE DPI 5 CAP/KIT (18 MCG/CAP) IH SCH (11:08)
[2018-03-22] MEDS: LOSARTAN POTASSIUM 50 MG TABLET PO SCH (11:08)
[2018-03-22] MEDS: INSULIN LISPRO 100 UNIT/ML 3 ML VIAL SUBCUT SCH ×3 (11:08→19:28)
[2018-03-22 11:10] LABS: CREATINE KINASE MB 0.42 ng/mL (<4.55)
[2018-03-22 11:12] LABS: TROPONIN I < 0.012 ng/mL
--- NOTE | 2018-03-22 12:52 | RADIOLOGY REPORT (SQ) ---
EXAM DESCRIPTION: CHEST SINGLE VIEW COMPLETED DATE/TIME: 03/22/2018 12:43 pm REASON FOR STUDY: SOB COMPARISON: 03/21/2018. EXAM PARAMETERS: NUMBER OF VIEWS: One view. TECHNIQUE: Single frontal radiographic view of the chest acquired. RADIATION DOSE: NA LIMITATIONS: None. FINDINGS: LUNGS AND PLEURA: No opacities, masses or pneumothorax. No pleural effusion. MEDIASTINUM AND HILAR STRUCTURES: No masses. Contour normal. HEART AND VASCULAR STRUCTURES: Heart normal in size. Normal vasculature. BONES: No acute findings. HARDWARE: Hardware in the left humerus. OTHER: No other significant finding. IMPRESSION: NO ACUTE RADIOGRAPHIC FINDING IN THE CHEST. TECHNICAL DOCUMENTATION: JOB ID: [id number] [employer]- All Rights Reserved Reading location - IP/workstation name: [email or web address]
--- NOTE | 2018-03-22 13:00 | EKG REPORT ---
SEVERITY:- OTHERWISE NORMAL ECG - SINUS RHYTHM BORDERLINE LEFT AXIS DEVIATION : Confirmed by: Kevin Morales MD 22-Mar-2018 12:59:15
[2018-03-22] MEDS ORDERED: ONDANSETRON HCL INJ/PF 4 MG/2 ML SDV IV PRN (19:07)
[2018-03-22] MEDS: METOPROLOL SUCCINATE 50 MG TAB.SR.24H PO SCH (19:27)
[2018-03-22] MEDS: INSULIN DETEMIR 100 UNIT/ML 3 ML PEN SUBCUT SCH (19:33)
--- NOTE | 2018-03-22 21:33 | PDOC PROGRESS REPORT ---
Subjective Progress Note for:: 03/22/18 Subjective:: Patient had episode of chest pain today, atypical, still wheezing Reason For Visit: COPD ACUTE EXCE Physical Exam Vital Signs: Temp Pulse Resp BP Pulse Ox 98.4 F 79 18 121/65 97 03/22/18 16:12 03/22/18 16:49 03/22/18 16:49 03/22/18 16:12 03/22/18 16:49 Intake & Output 03/21/18 03/22/18 03/23/18 06:59 06:59 06:59 Intake Total 1899 2974 888 Output Total 2305 3200 2200 Balance -406 226 1312 Weight 108 kg 109.5 kg General appearance: PRESENT: no acute distress Eye exam: PRESENT: PERRLA Respiratory exam: PRESENT: wheezes Cardiovascular exam: PRESENT: +S1, +S2 GI/Abdominal exam: PRESENT: soft Neurological exam: PRESENT: alert Results Laboratory Results: 03/22/18 10:12 03/22/18 10:12 03/22/18 03/22/18 10:12 10:12 WBC 9.0 RBC 4.05 Hgb 12.3 Hct 36.9 MCV 91 MCH 30.3 MCHC 33.3 RDW 16.5 H Plt Count 248 Seg Neutrophils % 64.9 Lymphocytes % 19.9 Monocytes % 10.4 Eosinophils % 4.1 Basophils % 0.7 Absolute Neutrophils 5.8 Absolute Lymphocytes 1.8 Absolute Monocytes 0.9 Absolute Eosinophils 0.4 Absolute Basophils 0.1 Sodium 137.7 Potassium 4.0 Chloride 102 Carbon Dioxide 29 Anion Gap 7 BUN 33 H Creatinine 0.81 Est GFR ( Amer) > 60 Est GFR (Non-Af Amer) > 60 Glucose 123 H Calcium 9.2 Magnesium 2.2 03/13/18 03/13/18 03/13/18 15:54 15:54 22:11 Creatine Kinase < 20 L 20 L CK-MB (CK-2) 0.93 Troponin I < 0.012 03/13/18 03/13/18 03/14/18 22:11 23:40 05:46 Creatine Kinase CK-MB (CK-2) Cancelled 0.71 0.65 Troponin I Cancelled < 0.012 < 0.012 03/14/18 03/14/18 03/14/18 05:46 11:59 11:59 Creatine Kinase < 20 L 58 CK-MB (CK-2) 0.82 Troponin I < 0.012 03/22/18 03/22/18 10:12 10:12 Creatine Kinase < 20 L CK-MB (CK-2) 0.42 Troponin I < 0.012 Impressions: Chest X-Ray 03/22/18 00:00 IMPRESSION: NO ACUTE RADIOGRAPHIC FINDING IN THE CHEST. Assessment & Plan - Diagnosis (1) Acute hypercapnic respiratory failure Is this a current diagnosis for this admission?: Yes (2) COPD exacerbation Is this a current diagnosis for this admission?: Yes Plan: Continue prednisone (3) Diabetes mellitus type 2 in obese Is this a current diagnosis for this admission?: Yes
[2018-03-23] MEDS: IPRATROPIUM/ALBUTEROL 0.5-2.5 MG/3 ML AMPUL NEB SCH ×5 (00:35→16:34)
[2018-03-23] MEDS: PIOGLITAZONE HCL 30 MG TABLET PO SCH (11:29)
[2018-03-23] MEDS: FLUTICASONE/SALMETEROL DISKUS 250-50 MCG/DOSE IH SCH (11:29)
[2018-03-23] MEDS: GABAPENTIN 400 MG CAPSULE PO SCH ×3 (11:31→17:28)
[2018-03-23] MEDS: LOSARTAN POTASSIUM 50 MG TABLET PO SCH (11:31)
[2018-03-23] MEDS: INSULIN LISPRO 100 UNIT/ML 3 ML VIAL SUBCUT SCH ×2 (11:31→17:26)
[2018-03-23] MEDS: METOPROLOL SUCCINATE 50 MG TAB.SR.24H PO SCH (11:32)
[2018-03-23] MEDS: MULTIVITAMIN TABLET PO SCH (11:33)
[2018-03-23] MEDS: DULOXETINE HCL 30 MG CAPSULE.DR PO SCH (11:33)
[2018-03-23] MEDS: PREDNISONE 20 MG TABLET PO SCH (11:35)
[2018-03-23] MEDS: SITAGLIPTIN PHOSPHATE 50 MG TABLET PO SCH (11:35)
[2018-03-23] MEDS: GUAIFENESIN 600 MG TABLET.SA PO SCH (11:35)
[2018-03-23] MEDS: ASPIRIN 81 MG TABLET, ENT COATED PO SCH (11:35)
[2018-03-23] MEDS: FAMOTIDINE 20 MG TABLET PO SCH (11:35)
[2018-03-23] MEDS: ENOXAPARIN SODIUM INJ 40 MG/0.4 ML DISP.SYRIN SUBCUT SCH (11:36)
[2018-03-23] MEDS: TIOTROPIUM BROMIDE DPI 5 CAP/KIT (18 MCG/CAP) IH SCH (11:36)
[2018-03-23] MEDS ORDERED: FLUTICASONE/UMECLIDIN/VILANTER 100-62.5-25 MCG/DOSE IH SCH (16:00)
--- NOTE | 2018-03-23 17:16 | PDOC DISCHARGE SUMMARY ---
General - Admit/Disc Date/PCP Admission Date/Primary Care Provider: 03/13/18 18:46 TOÑA MCLEAN MD Discharge Date: 03/23/18 - Discharge Diagnosis (1) Acute hypercapnic respiratory failure Is this a current diagnosis for this admission?: Yes (2) COPD exacerbation Is this a current diagnosis for this admission?: Yes (3) Diabetes mellitus type 2 in obese Is this a current diagnosis for this admission?: Yes - Additional Information Resuscitation Status: Full Code Discharge Diet: Cardiac, Diabetic Discharge Activity: Activity As Tolerated, Balance Activity w/Rest Prescriptions: Albuterol Sulfate [Proair Hfa Inhalation Aerosol 8.5 gm Mdi] 1 puff IH Q4 PRN #1 mdi PRN Reason: Fluticasone/Umeclidin/Vilanter [Trelegy 100-62.5-25 Mcg Ellipta 14 Dose/Dpi] 1 inh IH DAILY #3 inhaler Home Medications: Duloxetine HCl [Cymbalta] 60 mg PO Q12 07/21/17 Metoprolol Succinate [Toprol XL 100 mg Tablet] 100 mg PO DAILY 07/21/17 Omeprazole 40 mg PO DAILY 07/21/17 Pioglitazone HCl [Actos] 30 mg PO QAM 07/21/17 Insulin Detemir [Levemir Flextouch] 55 unit SQ QPM 08/24/17 Aspirin [Aspirin EC] 81 mg PO DAILY 09/06/17 Insulin Aspart [Novolog Flexpen] 10 unit SUBCUT MEALS 09/06/17 Losartan Potassium 100 mg PO DAILY 09/06/17 Multivitamin [Multiple Vitamins] 1 each PO DAILY 09/06/17 Canagliflozin [Invokana] 300 mg PO DAILY 03/13/18 Gabapentin 1,200 mg PO TID 03/13/18 Linagliptin [Tradjenta] 5 mg PO DAILY 03/13/18 Pitavastatin Calcium [Livalo] 4 mg PO QHS 03/13/18 Acetaminophen [Tylenol 325 mg Tablet] 650 mg PO Q4HP PRN tablet 03/23/18 Albuterol Sulfate [Proair Hfa Inhalation Aerosol 8.5 gm Mdi] 1 puff IH Q4 PRN #1 mdi 03/23/18 Fluticasone/Umeclidin/Vilanter [Trelegy 100-62.5-25 Mcg Ellipta 14 Dose/Dpi] 1 inh IH DAILY #3 inhaler 03/23/18 History of Present Illness History of Present Illness: DARCY NAVA is a 72 year old female,She presented to the emergency room for evaluation of shortness of breath, acute respiratory failure with hypercapnia, she requires noninvasive positive pressure ventilation with BiPAP Hospital Course Hospital Course: She was managed with intravenous Solu-Medrol, bronchodilators, IV antibiotic.Patient improved with treatment, she also required noninvasive positive pressure ventilation with BiPAP Physical Exam Vital Signs: Temp Pulse Resp BP Pulse Ox 98.2 F 84 16 131/57 H 95 03/23/18 16:57 03/23/18 16:57 03/23/18 16:57 03/23/18 16:57 03/23/18 16:57 Intake & Output 03/22/18 03/23/18 03/24/18 06:59 06:59 06:59 Intake Total 2974 888 Output Total 3200 2925 Balance -226 -2037 Weight 109.5 kg General appearance: PRESENT: no acute distress Eye exam: PRESENT: PERRLA Respiratory exam: PRESENT: wheezes Cardiovascular exam: PRESENT: +S1, +S2 GI/Abdominal exam: PRESENT: soft Neurological exam: PRESENT: alert Results Laboratory Results: 03/22/18 10:12 03/22/18 10:12 03/13/18 03/13/18 03/13/18 15:54 15:54 22:11 Creatine Kinase < 20 L 20 L CK-MB (CK-2) 0.93 Troponin I < 0.012 03/13/18 03/13/18 03/14/18 22:11 23:40 05:46 Creatine Kinase CK-MB (CK-2) Cancelled 0.71 0.65 Troponin I Cancelled < 0.012 < 0.012 03/14/18 03/14/18 03/14/18 05:46 11:59 11:59 Creatine Kinase < 20 L 58 CK-MB (CK-2) 0.82 Troponin I < 0.012 03/22/18 03/22/18 10:12 10:12 Creatine Kinase < 20 L CK-MB (CK-2) 0.42 Troponin I < 0.012 Impressions: Chest X-Ray 03/22/18 00:00 IMPRESSION: NO ACUTE RADIOGRAPHIC FINDING IN THE CHEST. Qualifiers - * PATIENT BEING DISCHARGED WITH ANY OF THE FOLLOWING DIAGNOSIS: No
[2018-03-23 18:15] VITALS: BP 127/80
== END 2018-03-23 18:29 | disposition home or self-care (01) | DRG 190 ==
LOC: ER 15:49 → EH 18:46 → OBSVTOIN 18:46 → 3W 20:46
PROVIDERS: ADMIT Family Medicine; ATTEND Internal Medicine
PROC: 3E0F3GC Introduction of Other Therapeutic Substance into Respiratory Tract, Percutaneous Approach (ICD-10-PCS; principal; 2018-03-13)
DX: J44.1 Chronic obstructive pulmonary disease with (acute) exacerbation (principal); J96.02 Acute respiratory failure with hypercapnia; J96.01 Acute respiratory failure with hypoxia; E11.22 Type 2 diabetes mellitus with diabetic chronic kidney disease; E66.01 Morbid (severe) obesity due to excess calories; D63.1 Anemia in chronic kidney disease; N18.3 Chronic kidney disease, stage 3 (moderate); I12.9 Hypertensive chronic kidney disease with stage 1 through stage 4 chronic kidney disease, or unspecified chronic kidney disease; K44.9 Diaphragmatic hernia without obstruction or gangrene; M19.90 Unspecified osteoarthritis, unspecified site; F32.9 Major depressive disorder, single episode, unspecified; Z87.891 Personal history of nicotine dependence; Z68.35 Body mass index [BMI] 35.0-35.9, adult; Z86.718 Personal history of other venous thrombosis and embolism; Z85.43 Personal history of malignant neoplasm of ovary; Z80.8 Family history of malignant neoplasm of other organs or systems; Z83.3 Family history of diabetes mellitus; Z83.6 Family history of other diseases of the respiratory system; Z79.82 Long term (current) use of aspirin; Z79.4 Long term (current) use of insulin; Z87.01 Personal history of pneumonia (recurrent)
CPT/HCPCS: 36415; 36600; 71045; 80048; 80053; 81001; 82550; 82553; 82803; 82962; 83735; 84484; 85025; 87040; 87804; 90686; 93005; 93010; 94640; 94660; 96365; 96375; 99285; J0456; J0692; J1650; J1815; J2920; J2930; J3490; J7040; J7060; J7512; J7620

== ENCOUNTER 2018-03-31 13:44 | Inpatient (IN) | payer MEDICARE, MEDICAID ==
[2018-03-31] MEDS ORDERED: IPRATROPIUM/ALBUTEROL 0.5-2.5 MG/3 ML AMPUL NEB ONE (14:03)
[2018-03-31] MEDS ORDERED: ALBUTEROL SULFATE 0.083% NEB 2.5 MG/3 ML AMPUL NEB ONE ×2 (14:03→15:54)
[2018-03-31] MEDS ORDERED: METHYLPREDNISOLONE INJ 125 MG/2 ML SDV IV ONE (14:11)
--- NOTE | 2018-03-31 14:18 | RADIOLOGY REPORT (SQ) ---
EXAM DESCRIPTION: CHEST SINGLE VIEW COMPLETED DATE/TIME: 03/31/2018 2:05 pm REASON FOR STUDY: bed 21 db COMPARISON: 03/22/2018. EXAM PARAMETERS: NUMBER OF VIEWS: One view. TECHNIQUE: Single frontal radiographic view of the chest acquired. RADIATION DOSE: NA LIMITATIONS: None. FINDINGS: LUNGS AND PLEURA: No opacities, masses or pneumothorax. No pleural effusion. MEDIASTINUM AND HILAR STRUCTURES: No masses. Contour normal. HEART AND VASCULAR STRUCTURES: Heart normal in size. Normal vasculature. BONES: No acute findings. HARDWARE: Hardware in the left humerus. OTHER: No other significant finding. IMPRESSION: NO ACUTE RADIOGRAPHIC FINDING IN THE CHEST. TECHNICAL DOCUMENTATION: JOB ID: [id number] [employer]- All Rights Reserved Reading location - IP/workstation name: [email or web address]
--- NOTE | 2018-03-31 14:38 | ER Document Report ---
ED General - General Chief Complaint: Respiratory Distress Stated Complaint: SHORTNESS OF BREATH Time Seen by Provider: 03/31/18 14:03 TRAVEL OUTSIDE OF THE [place] IN LAST 30 DAYS: No - HPI Notes: Patient is a 72-year-old female that presents to the emergency department for chief complaint of fall. Patient states around 2 AM she had a mechanical fall on a rug. She states she fell backwards and landed in her angelica litter box. She believes she did her head and may have lost consciousness. She pushed her life alert button and EMS helped her back into bed. This morning when her biological aide came over the aide was concerned for her breathing and recommended coming to the emergency room. Patient does states she has a headache since the fall. She denies any neck pain or other injuries during the fall. She has a history of COPD and CHF. She states she was recently seen in the hospital for her COPD. She has been using her breathing treatments 2 times daily with some improvement. She does not believe she is on any steroids at this time. Patient denies any home oxygen. EMS reported patient's O2 was 84% on room air when they arrived. She did receive Solu-Medrol in route Past Medical History: CHF, COPD, diabetes, GERD Past Surgical History: Reviewed in chart Social History: Former smoker. Occasional alcohol. Denies drugs. Family History: Reviewed and noncontributory for presenting illness Allergies: Reviewed, see documented allergy list. REVIEW OF SYSTEMS: CONSTITUTIONAL : No fever No chills No diaphoresis No recent illness EENT: No vision changes No congestion No sore throat CARDIOVASCULAR: No chest pain No palpitations RESPIRATORY: shortness of breath cough difficulty breathing GASTROINTESTINAL: No abdominal pain No nausea No vomiting No diarrhea GENITOURINARY: No dysuria No hematuria No difficulty urinating MUSCULOSKELETAL: No back pain No leg pain No arm pain SKIN: No rashes No lesions LYMPHATIC: No swollen, enlarged glands. NEUROLOGICAL: No lightheadedness headache No weakness No paresthesias PSYCHIATRIC: No anxiety No depression PHYSICAL EXAMINATION: Vital signs reviewed, nursing noted reviewed. GENERAL: Well-appearing, obese and in no acute distress. HEAD: Atraumatic, normocephalic. EYES: Eyes appear normal, extraocular movements intact, sclera anicteric, conjunctiva are normal. ENT: nares patent, oropharynx clear without exudates. Moist mucous membranes. NECK: Normal range of motion, supple without lymphadenopathy LUNGS: Diffuse wheezing, mild accessory muscle use and tachypnea, speaking in full sentences HEART: Regular rate and rhythm without murmurs ABDOMEN: Soft, nontender, normoactive bowel sounds. No rebound, guarding, or rigidity. No masses appreciated. EXTREMITIES: Nontender, good range of motion, trace pretibial edema. NEUROLOGICAL: No focal neurological deficits. Moves all extremities spontaneously Motor and sensory grossly intact on exam. PSYCH: Normal mood, normal affect. SKIN: Warm, Dry, normal turgor, no rashes or lesions noted on exposed skin - Related Data Allergies/Adverse Reactions: propoxyphene [From Darvocet-N] Allergy (Verified 03/31/18 14:12) Delirium tapentadol [From Nucynta] Allergy (Verified 03/31/18 14:12) Delirium Past Medical History - Social History Smoking Status: Former Smoker Chew tobacco use (# tins/day): No Frequency of alcohol use: Occasional Drug Abuse: None Family History: Reviewed & Not Pertinent, COPD, DM, Malignancy - Brother with throat cancer, Other - Father with tuberculosis Patient has suicidal ideation: No Patient has homicidal ideation: No - Past Medical History Cardiac Medical History: Reports: Hx DVT, Hx Hypertension - ON MEDS Denies: Hx Atrial Fibrillation, Hx Congestive Heart Failure, Hx Coronary Ar isamar Disease, Hx Heart Attack, Hx Hypercholesterolemia, Hx Peripheral Vascular Disease, Hx Pulmonary Embolism, Hx Heart Murmur Pulmonary Medical History: Reports: Hx Bronchitis, Hx COPD - USES NEB AND INHALER, Hx Pneumonia - 2 YRS AGO Denies: Hx Asthma, Hx Respiratory Failure, Hx Sleep Apnea, Hx Tuberculosis Neurological Medical History: Denies: Hx Cerebrovascular Accident, Hx Seizures Endocrine Medical History: Reports: Hx Diabetes Mellitus Type 2. Denies: Hx Graves' Disease, Hx Hyperthyroidism, Hx Hypothyroidism Renal/ Medical History: Reports: Hx End Stage Renal Disease - Stage 3- NO DI ALYSIS. Denies: Hx Kidney Stones, Hx Ovarian Cysts, Hx Peritoneal Dialysis, Hx Pelvic Inflammatory Disease Malignancy Medical History: Reports: Hx Ovarian Cancer - PRE-CANCEROUS, TOTAL HYST, QUINN SALPINGOOPHORECTOMY. Denies: Hx Breast Cancer, Hx Cervical Cancer, Hx Leukemia, Hx Lung Cancer GI Medical History: Reports: Hx Hiatal Hernia. Denies: Hx Crohn's Disease, Hx Gastroesophageal Reflux Disease, Hx Irritable Bowel, Hx Liver Failure, Hx Pancr eatitis, Hx Ulcer Musculoskeletal Medical History: Reports Hx Arthritis, Denies Hx Fibromyalgia, Denies Hx Multiple Sclerosis, Denies Hx Muscular Dystrophy Psychiatric Medical History: Reports: Hx Depression Denies: Hx Bipolar Disorder, Hx Dementia, Hx Post Traumatic Stress Disorder, Hx Schizophrenia Traumatic Medical History: Denies: Hx Fractures Infectious Medical History: Denies: Hx HIV Past Surgical History: Reports: Hx Abdominal Surgery, Hx Appendectomy, Hx Bowel Surgery - EX LAP, ILEOSTOMY, Hx Colostomy - History of colostomy revision , History of resection of the colon, Hx Hysterectomy, Hx Kidney (Renal Surgery) - Right kidney, Hx Orthopedic Surgery - left shoulder, Other - Recent history of extended right hemicolectomy with end ileostomy bag, rvsd. Denies: Hx Section, Hx Cholecystectomy, Hx Coronary Artery Bypass Graft, Hx Gastric Bypass Surgery, Hx Herniorrhaphy, Hx Mastectomy, Hx Pacemaker, Hx Tonsillectomy, Hx Tubal Ligation - Immunizations Immunizations up to date: Yes Hx Diphtheria, Pertussis, Tetanus Vaccination: Yes Hx Pneumococcal Vaccination: 05/27/13 Physical Exam - Vital signs Vitals: Resp 16 03/31/18 13:51 Course - Re-evaluation Re-evalutation: 03/31/18 14:36 Vitals reviewed. Nursing notes reviewed. Patient was hypoxic at presentation and placed on nonrebreather mask. She will be given aerosols for his COPD. She has some mild increased work of breathing and audible wheezing at bedside. She received Solu-Medrol prior to arrival. Patient placed on telemetry monitoring. 03/31/18 15:40 Patient reevaluated after aerosols and is still having audible wheezing. Her respiratory status is unchanged. Her oxygen is maintaining well on nasal cannula. Patient does still have some increased work of breathing and was offered BiPAP for her hypercapnia. She is refusing BiPAP currently. She will be given another albuterol treatment. Her images are unremarkable. There is no intracranial hemorrhage or injury from her fall. 03/31/18 15:54 Patient's care discussed with Dr. Lizarraga who will accept patient for admission. Patient will be admitted to the [facility] for the potential that she will require BiPAP if her respiratory status is not improving. Chest X-Ray 03/31/18 13:47 IMPRESSION: NO ACUTE RADIOGRAPHIC FINDING IN THE CHEST. Cervical Spine CT 03/31/18 14:11 IMPRESSION: Mild degenerative disc changes, spondylosis, and facet arthropathy. No acute findings. Head CT 03/31/18 14:11 IMPRESSION: Involutional changes of aging with no acute intracranial imaging findings. EVIDENCE OF ACUTE STROKE: NO. 04/01/18 07:27 Laboratory 03/31/18 03/31/18 03/31/18 14:46 15:38 15:38 WBC 9.7 RBC 4.19 Hgb 12.9 Hct 38.1 MCV 91 MCH 30.9 MCHC 33.9 RDW 16.2 H Plt Count 284 Seg Neutrophils % 85.7 H Lymphocytes % 10.4 L Monocytes % 2.1 L Eosinophils % 1.4 Basophils % 0.4 Absolute Neutrophils 8.3 H Absolute Lymphocytes 1.0 Absolute Monocytes 0.2 Absolute Eosinophils 0.1 Absolute Basophils 0.0 Carbonic Acid 1.69 H HCO3/H2CO3 Ratio 15:1 ABG pH 7.30 L ABG pCO2 56.0 H ABG pO2 146.8 H ABG HCO3 26.8 H ABG Total CO2 28.5 H ABG O2 Saturation 98.6 H ABG Base Excess -0.6 FiO2 4L Sodium 134.7 L Potassium 4.4 Chloride 98 Carbon Dioxide 30 Anion Gap 7 BUN 15 Creatinine 0.89 Est GFR ( Amer) > 60 Est GFR (Non-Af Amer) > 60 Glucose 319 H Calcium 9.3 Total Bilirubin 0.7 Direct Bilirubin 0.5 H Neonat Total Bilirubin Not Reportable Neonat Direct Bilirubin Not Reportable Neonat Indirect Bili Not Reportable AST 29 ALT 38 Alkaline Phosphatase 97 Troponin I Total Protein 8.0 Albumin 4.2 Lipase 118.0 03/31/18 15:38 WBC RBC Hgb Hct MCV MCH MCHC RDW Plt Count Seg Neutrophils % Lymphocytes % Monocytes % Eosinophils % Basophils % Absolute Neutrophils Absolute Lymphocytes Absolute Monocytes Absolute Eosinophils Absolute Basophils Carbonic Acid HCO3/H2CO3 Ratio ABG pH ABG pCO2 ABG pO2 ABG HCO3 ABG Total CO2 ABG O2 Saturation ABG Base Excess FiO2 Sodium Potassium Chloride Carbon Dioxide Anion Gap BUN Creatinine Est GFR ( Amer) Est GFR (Non-Af Amer) Glucose Calcium Total Bilirubin Direct Bilirubin Neonat Total Bilirubin Neonat Direct Bilirubin Neonat Indirect Bili AST ALT Alkaline Phosphatase Troponin I < 0.012 Total Protein Albumin Lipase - Vital Signs Vital signs: Temp Pulse Resp BP Pulse Ox 97.6 F 78 20 130/82 H 100 04/01/18 03:18 04/01/18 03:18 04/01/18 03:18 04/01/18 03:18 04/01/18 03:18 - Laboratory Result Diagrams: 03/31/18 15:38 03/31/18 15:38 Laboratory results interpreted by me: 03/31/18 03/31/18 03/31/18 14:46 15:38 15:38 RDW 16.2 H Seg Neutrophils % 85.7 H Lymphocytes % 10.4 L Monocytes % 2.1 L Absolute Neutrophils 8.3 H Carbonic Acid 1.69 H ABG pH 7.30 L ABG pCO2 56.0 H ABG pO2 146.8 H ABG HCO3 26.8 H ABG Total CO2 28.5 H ABG O2 Saturation 98.6 H Sodium 134.7 L Glucose 319 H Direct Bilirubin 0.5 H - EKG Interpretation by Me Additional EKG results interpreted by me: 03/31/18 15:48 Interpreted by myself 1351: Normal sinus rhythm, rate 82, normal axis, no ectopy, no ST elevation Critical Care Note - Critical Care Note Total time excluding time spent on procedures (mins): 31 Comments: Critical care time 31 exclusive from separate billable procedures for a patient requiring complex medical decision making, and high potential for clinical deterioration. Time spent obtaining history from patient or surrogate, discussions with consultants, development of treatment plan with patient or surrogate, evaluation of patient's response to treatment, examination of patient, ordering and performing treatments and interventions, ordering and r eview of laboratory studies, re-evaluation of patient's condition, ordering and review of radiographic studies and review of old charts Discharge - Discharge Clinical Impression: COPD exacerbation Closed head injury Qualifiers: Encounter type: initial encounter Qualified Code(s): S09.90XA - Unspecified injury of head, initial encounter Hypercapnic respiratory failure Qualifiers: Chronicity: acute on chronic Qualified Code(s): J96.22 - Acute and chronic respiratory failure with hypercapnia Fall Qualifiers: Encounter type: initial encounter Qualified Code(s): W19.XXXA - Unspecified fall, initial encounter Condition: Stable Disposition: ADMITTED INPATIENT Admitting Provider: [facility] Admitted: [facility]
[2018-03-31 14:56] LABS: ARTERIAL BLOOD BASE EXCESS -0.6 mmol/L; ARTERIAL BLOOD H2CO3 1.69 mmol/L (1.05-1.35); ARTERIAL BLOOD HCO3 26.8 mmol/L (20-24); ARTERIAL BLOOD O2 SATURATION 98.6 % (94-98); ARTERIAL BLOOD PO2 146.8 mmHg (80-100); ARTERIAL BLOOD TOTAL CO2 28.5 mmol/L (21-25)
[2018-03-31 14:58] LABS: ARTERIAL BLOOD FIO2 4L
--- NOTE | 2018-03-31 15:27 | RADIOLOGY REPORT (SQ) ---
EXAM DESCRIPTION: CT HEAD WITHOUT COMPLETED DATE/TIME: 03/31/2018 3:06 pm REASON FOR STUDY: trauma COMPARISON: 09/05/2017 TECHNIQUE: Axial images acquired through the brain without intravenous contrast. Images reviewed wi th bone, brain and subdural windows. Additional sagittal and coronal reconstructions were generated. Images stored on PACS. All CT scanners at this facility use dose modulation, iterative reconstruction, and/or weight based d osing when appropriate to reduce radiation dose to as low as reasonably achievable (ALARA). [facility]: Dose Right [facility]: CareDose [facility]: Dose Right [facility]: Teradose 4D [facility]: Smart [employer] RADIATION DOSE: CT Rad equipment meets quality standard of care and radiation dose reduction techniq ues were employed. CTDIvol: 53.2 mGy. DLP: 1070 mGy-cm. mGy. LIMITATIONS: None. FINDINGS: VENTRICLES: Normal size and contour. CEREBRUM: Cortical atrophy. No masses. No hemorrhage. No midline shift. No evidence for acute inf arction. Normal guerrero/white matter differentiation. No areas of low density in the white matter. CEREBELLUM: No masses. No hemorrhage. No alteration of density. No evidence for acute infarction. EXTRAAXIAL SPACES: No fluid collections. No masses. ORBITS AND GLOBE: No intra- or extraconal masses. Normal contour of globe without masses. CALVARIUM: No fracture. PARANASAL SINUSES: No fluid or mucosal thickening. SOFT TISSUES: No mass or hematoma. OTHER: No other significant finding. IMPRESSION: Involutional changes of aging with no acute intracranial imaging findings. EVIDENCE OF ACUTE STROKE: NO. COMMENT: Quality ID # [id number]: Final reports with documentation of one or more dose reduction techniques (e.g., Automated exposure control, adjustment of the mA and/or kV according to patient size, use of iterative reconstruction technique) TECHNICAL DOCUMENTATION: JOB ID: [id number] [employer]- All Rights Reserved Reading location - IP/workstation name: [email or web address]
--- NOTE | 2018-03-31 15:30 | RADIOLOGY REPORT (SQ) ---
EXAM DESCRIPTION: CT CERVICAL SPINE WITHOUT COMPLETED DATE/TIME: 03/31/2018 3:06 pm REASON FOR STUDY: trauma COMPARISON: None. TECHNIQUE: Axial images acquired through the cervical spine without intravenous contrast. Images re viewed with lung, soft tissue and bone windows. Reconstructed coronal and sagittal MPR images review ed. Images stored on PACS. All CT scanners at this facility use dose modulation, iterative reconstruction, and/or weight based d osing when appropriate to reduce radiation dose to as low as reasonably achievable (ALARA). [facility]: Dose Right [facility]: CareDose [facility]: Dose Right [facility]: Teradose 4D [facility]: Smart [employer] RADIATION DOSE: CT Rad equipment meets quality standard of care and radiation dose reduction techniq ues were employed. CTDIvol: 28.6 - 36.6 mGy. DLP: 1047 mGy-cm. mGy. LIMITATIONS: None. FINDINGS: ALIGNMENT: Anatomic. MINERALIZATION: Normal. VERTEBRAL BODIES: No fractures or dislocation. DISCS: Mild disc narrowing at C6-7 with marginal osteophytes. FACETS, LATERAL MASSES, POSTERIOR ELEMENTS: Mild hypertrophic facet changes at several levels. HARDWARE: None in the spine. VISUALIZED RIBS: No fractures. LUNG APICES AND SOFT TISSUES: No significant or acute findings. OTHER: No other significant finding. IMPRESSION: Mild degenerative disc changes, spondylosis, and facet arthropathy. No acute findings. TECHNICAL DOCUMENTATION: JOB ID: [id number] Quality ID # [id number]: Final reports with documentation of one or more dose reduction techniques (e.g., Au tomated exposure control, adjustment of the mA and/or kV according to patient size, use of iterative reconstruction technique) 2010 [employer]- All Rights Reserved Reading location - IP/workstation name: [email or web address]
[2018-03-31 15:45] LABS: ABSOLUTE EOSINOPHILS # (AUTO) 0.1 10^3/uL (0.0-0.6); ABSOLUTE MONOCYTES (AUTO) 0.2 10^3/uL (0.1-1.4); ABSOLUTE NEUT (AUTO) 8.3 10^3/uL (1.7-8.2); BASOPHILS % (AUTO) 0.4 % (0-2); EOSINOPHILS % (AUTO) 1.4 % (0-6); HEMATOCRIT 38.1 % (36.0-47.0); HEMOGLOBIN 12.9 g/dL (12.0-15.5); LYMPHOCYTES % (AUTO) 10.4 % (13-45); MEAN CORPUSCULAR HEMOGLOBIN 30.9 pg (27.0-33.4); MEAN CORPUSCULAR HGB CONC 33.9 g/dL (32.0-36.0); MEAN CORPUSCULAR VOLUME 91 fl (80-97); MONOCYTES % (AUTO) 2.1 % (3-13); PLATELET COUNT 284 10^3/uL (150-450); RED BLOOD COUNT 4.19 10^6/uL (3.72-5.28); RED CELL DISTRIBUTION WIDTH 16.2 % (11.5-14.0); SEGMENTED NEUTROPHILS % (AUTO) 85.7 % (42-78); TOTAL CELLS COUNTED % (AUTO) 100 %; WHITE BLOOD COUNT 9.7 10^3/uL (4.0-10.5)
[2018-03-31 16:11] LABS: ALANINE AMINOTRANSFERASE 38 U/L (9-52); ALBUMIN 4.2 g/dL (3.5-5.0); ALKALINE PHOSPHATASE 97 U/L (38-126); ANION GAP 7 (5-19); ASPARTATE AMINO TRANSFERASE 29 U/L (14-36); BILIRUBIN,DIRECT 0.5 mg/dL (0.0-0.4); BILIRUBIN,TOTAL 0.7 mg/dL (0.2-1.3); BLOOD UREA NITROGEN 15 mg/dL (7-20); CALCIUM 9.3 mg/dL (8.4-10.2); CARBON DIOXIDE 30 mmol/L (22-30); CHLORIDE 98 mmol/L (98-107); GLUCOSE 319 mg/dL (75-110); POTASSIUM 4.4 mmol/L (3.6-5.0); SODIUM 134.7 mmol/L (137-145)
[2018-03-31] MEDS ORDERED: ACETAMINOPHEN 325 MG TABLET PO ONE (17:08)
[2018-03-31] MEDS ORDERED: (PENDING PHARMACY ID) (Insulin Aspart [Novolog Flexpen] 10 UNIT) SUBCUT SCH (19:00)
[2018-03-31] MEDS ORDERED: (PENDING PHARMACY ID) (Canagliflozin [Invokana] 300 MG) PO SCH (19:00)
[2018-03-31] MEDS ORDERED: (PENDING PHARMACY ID) (Losartan Potassium [Losartan Potassium] 100 MG) PO SCH (19:00)
[2018-03-31] MEDS ORDERED: (PENDING PHARMACY ID) (Linagliptin [Tradjenta] 5 MG) PO SCH (19:00)
[2018-03-31] MEDS ORDERED: (PENDING PHARMACY ID) (Gabapentin [Gabapentin] 1,200 MG) PO SCH (19:00)
[2018-03-31] MEDS: MULTIVITAMIN TABLET PO SCH (20:07)
[2018-03-31] MEDS: DULOXETINE HCL 30 MG CAPSULE.DR PO SCH (20:19)
[2018-03-31] MEDS: METOPROLOL SUCCINATE 50 MG TAB.SR.24H PO SCH (20:20)
[2018-03-31] MEDS: LANSOPRAZOLE 30 MG TAB.RAP.DR PO SCH (20:20)
[2018-03-31] MEDS: SITAGLIPTIN PHOSPHATE 50 MG TABLET PO SCH (20:20)
[2018-03-31] MEDS: ASPIRIN 81 MG TABLET, ENT COATED PO SCH (20:20)
[2018-03-31] MEDS: LOSARTAN POTASSIUM 50 MG TABLET PO SCH (20:20)
[2018-03-31] MEDS: PIOGLITAZONE HCL 30 MG TABLET PO SCH (20:20)
[2018-03-31] MEDS ORDERED: (PENDING PHARMACY ID) (Pitavastatin Calcium [Livalo] 4 MG) PO SCH (22:00)
[2018-03-31] MEDS: GABAPENTIN 400 MG CAPSULE PO SCH (22:27)
[2018-03-31] MEDS: INSULIN DETEMIR 100 UNIT/ML 3 ML PEN SUBCUT SCH (22:28)
[2018-03-31] MEDS: FLUTICASONE/UMECLIDIN/VILANTER 100-62.5-25 MCG/DOSE IH SCH (22:28)
[2018-03-31] MEDS: ATORVASTATIN CALCIUM 20 MG TABLET PO SCH (22:28)
[2018-03-31] MEDS ORDERED: DEXTROSE 40% GEL 15 GM TUBE PO PRN (23:00)
[2018-03-31] MEDS ORDERED: GLUCAGON,HUMAN RECOMB 1 MG INJ IM PRN (23:00)
[2018-03-31] MEDS ORDERED: DEXTROSE 40% GEL 15 GM TUBE X 2 PO PRN (23:00)
[2018-03-31] MEDS ORDERED: DEXTROSE 50%-WATER SYRINGE 12.5 GM/25 ML DOSE IV PRN (23:00)
[2018-03-31] MEDS ORDERED: DEXTROSE 50%-WATER SYRINGE 25 GM/50 ML DOSE IV PRN (23:00)
[2018-03-31] MEDS: INSULIN LISPRO 100 UNIT/ML 3 ML VIAL SUBCUT PRN (23:05)
--- NOTE | 2018-03-31 23:06 | EKG REPORT ---
SEVERITY:- BORDERLINE ECG - SINUS RHYTHM BORDERLINE LEFT AXIS DEVIATION BORDERLINE PROLONGED QT INTERVAL : Confirmed by: Felipe Glez 31-Mar-2018 23:05:42
[2018-04-01] MEDS: GABAPENTIN 400 MG CAPSULE PO SCH ×3 (06:03→21:31)
[2018-04-01] MEDS: LANSOPRAZOLE 30 MG TAB.RAP.DR PO SCH (06:04)
[2018-04-01] MEDS: INSULIN LISPRO 100 UNIT/ML 3 ML VIAL SUBCUT SCH ×3 (08:28→18:03)
[2018-04-01] MEDS: PIOGLITAZONE HCL 30 MG TABLET PO SCH (08:28)
[2018-04-01] MEDS: ASPIRIN 81 MG TABLET, ENT COATED PO SCH (09:58)
[2018-04-01] MEDS: MULTIVITAMIN TABLET PO SCH (09:58)
[2018-04-01] MEDS: DULOXETINE HCL 30 MG CAPSULE.DR PO SCH ×2 (09:58→21:31)
[2018-04-01] MEDS: ALBUTEROL SULFATE HFA (90 MCG/PUFF) 200 PUFF/8.5 GM MDI IH PRN (09:58)
[2018-04-01] MEDS: FLUTICASONE/UMECLIDIN/VILANTER 100-62.5-25 MCG/DOSE IH SCH (09:59)
[2018-04-01] MEDS: SITAGLIPTIN PHOSPHATE 50 MG TABLET PO SCH (09:59)
[2018-04-01] MEDS: METOPROLOL SUCCINATE 50 MG TAB.SR.24H PO SCH (10:43)
[2018-04-01] MEDS: LOSARTAN POTASSIUM 50 MG TABLET PO SCH (10:43)
[2018-04-01] MEDS: METHYLPREDNISOLONE INJ 125 MG/2 ML SDV IV SCH ×2 (13:26→21:31)
[2018-04-01] MEDS: IPRATROPIUM/ALBUTEROL 0.5-2.5 MG/3 ML AMPUL NEB PRN (14:46)
[2018-04-01] MEDS: INSULIN DETEMIR 100 UNIT/ML 3 ML PEN SUBCUT SCH (18:04)
--- NOTE | 2018-04-01 20:44 | PDOC H&P ---
History of Present Illness Admission Date/PCP: 03/31/18 16:52 TOÑA MCLEAN MD History of Present Illness: DRACY NAVA is a 72 year old female, She has very severe chronic obstructive pulmonary disease she was just discharged from this hospital on March 23, 2018, she came to the emergency room for evaluation of shortness of breath. The history was that she fell at home, she thought she could have lost consciousness after the fall she was conscious when she fell, the fall initially was triggered by the floor carpet, it seems that she flipped over the floor because there was an object in the way. She triggered the life alert alarm, EMS came to her apartment she was evaluated she was found to be stable, she was left at home ,when the chief nursing executive came by to see her the chief nursing executive advised her to go to the emergency room for evaluation because she was wheezing and very short of breath. In the emergency room she was evaluated ,she was short of breath CT head was done it was negative for any acute pathology. The ABG on FiO2 of 4 L, pH 7.30 PO2 of 146.8 ,PCO2 56.0 bicarbonate 26.8 consistent with acute hypercapnic respiratory failure. The emergency room physician felt patient needed to be admitted for further evaluation and management of respiratory failure. Past Medical History Cardiac Medical History: Reports: DVT, Hypertension - ON MEDS Pulmonary Medical History: Reports: Bronchitis, Chronic Obstructive Pulmonary Disease (COPD) - USES NEB AND INHALER, Pneumonia - 2 YRS AGO Endocrine Medical History: Reports: Diabetes Mellitus Type 2 Renal/ Medical History: Reports: End Stage Renal Disease - Stage 3- NO DIALYSIS GI Medical History: Reports: Hiatal Hernia Musculoskeltal Medical History: Reports: Arthritis Psychiatric Medical History: Reports: Depression Hematology: Reports: Anemia Past Surgical History Past Surgical History: Reports: Appendectomy, Colostomy - History of colostomy revision , History of resection of the colon, Hysterectomy, Orthopedic Surgery - left shoulder, Other - Recent history of extended right hemicolectomy with end ileostomy bag, rvsd Social History Smoking Status: Former Smoker Frequency of Alcohol Use: None Hx Recreational Drug Use: No Drugs: None Hx Prescription Drug Abuse: No Family History Family History: Reviewed & Not Pertinent, COPD, DM, Malignancy - Brother with throat cancer, Other - Father with tuberculosis Parental Family History Reviewed: Yes Children Family History Reviewed: Yes Sibling(s) Family History Reviewed.: Yes Medication/Allergy Home Medications: RX: Duloxetine HCl [Cymbalta] 60 mg PO Q12 07/21/17 RX: Metoprolol Succinate [Toprol XL 100 mg Tablet] 100 mg PO DAILY 07/21/17 RX: Omeprazole 40 mg PO DAILY 07/21/17 RX: Pioglitazone HCl [Actos] 30 mg PO QAM 07/21/17 RX: Insulin Detemir [Levemir Flextouch] 55 unit SQ QPM 08/24/17 RX: Aspirin [Aspirin EC] 81 mg PO DAILY 09/06/17 RX: Insulin Aspart [Novolog Flexpen] 10 unit SUBCUT MEALS 09/06/17 RX: Losartan Potassium 100 mg PO DAILY 09/06/17 RX: Multivitamin [Multiple Vitamins] 1 each PO DAILY 09/06/17 RX: Canagliflozin [Invokana] 300 mg PO DAILY 03/13/18 RX: Gabapentin 1,200 mg PO TID 03/13/18 RX: Linagliptin [Tradjenta] 5 mg PO DAILY 03/13/18 Albuterol Sulfate [Proair Hfa Inhalation Aerosol 8.5 gm Mdi] 1 puff IH Q4 PRN #1 mdi 03/23/18 RX: Acetaminophen [Tylenol 325 mg Tablet] 650 mg PO Q4HP PRN tablet 03/23/18 RX: Fluticasone/Umeclidin/Vilanter [Trelegy 100-62.5-25 Mcg Ellipta 14 Dose/Dpi] 1 inh IH DAILY #3 inhaler 03/23/18 Allergies/Adverse Reactions: propoxyphene [From Darvocet-N] Allergy (Verified 03/31/18 14:12) Delirium tapentadol [From Nucynta] Allergy (Verified 03/31/18 14:12) Delirium Review of Systems Eyes: ABSENT: visual disturbances Ears: ABSENT: hearing changes Cardiovascular: ABSENT: chest pain, dyspnea on exertion, edema, orthropnea, palpitations Respiratory: PRESENT: cough, dyspnea, sputum Gastrointestinal: ABSENT: abdominal pain, constipation, diarrhea, hematemesis, hematochezia, nausea, vomiting Genitourinary: ABSENT: dysuria, hematuria Musculoskeletal: ABSENT: joint swelling Integumentary: ABSENT: rash, wounds Neurological: ABSENT: abnormal gait, abnormal speech, confusion, dizziness, focal weakness, syncope Psychiatric: ABSENT: anxiety, depression, homidical ideation, suicidal ideation Endocrine: ABSENT: cold intolerance, heat intolerance, menstrual abnormalities, polydipsia, polyuria Hematologic/Lymphatic: ABSENT: easy bleeding, easy bruising, lymphadenopathy Physical Exam Vital Signs: Temp Pulse Resp BP Pulse Ox 98.4 F 74 24 H 124/77 78 L 04/01/18 15:17 04/01/18 19:00 04/01/18 15:17 04/01/18 15:17 04/01/18 15:17 Intake & Output 03/31/18 04/01/18 04/02/18 06:59 06:59 06:59 Intake Total 1291 Output Total 300 0 Balance -300 1291 Weight 108.8 kg 108.8 kg General appearance: PRESENT: mild distress Head exam: PRESENT: atraumatic, normocephalic Eye exam: PRESENT: PERRLA Neck exam: PRESENT: full ROM Respiratory exam: PRESENT: wheezes Cardiovascular exam: PRESENT: RRR, +S1, +S2 Vascular exam: PRESENT: normal capillary refill GI/Abdominal exam: PRESENT: normal bowel sounds, soft Rectal exam: PRESENT: deferred Neurological exam: PRESENT: alert, awake, oriented to person, oriented to place, oriented to time, oriented to situation, CN II-XII grossly intact Psychiatric exam: PRESENT: appropriate affect, normal mood Skin exam: PRESENT: dry, intact, warm Results Laboratory Results: 03/31/18 15:38 03/31/18 15:38 03/31/18 15:38 Troponin I < 0.012 Impressions: Chest X-Ray 03/31/18 13:47 IMPRESSION: NO ACUTE RADIOGRAPHIC FINDING IN THE CHEST. Cervical Spine CT 03/31/18 14:11 IMPRESSION: Mild degenerative disc changes, spondylosis, and facet arthropathy. No acute findings. Head CT 03/31/18 14:11 IMPRESSION: Involutional changes of aging with no acute intracranial imaging findings. EVIDENCE OF ACUTE STROKE: NO. Assessment & Plan - Diagnosis (1) Acute hypercapnic respiratory failure Is this a current diagnosis for this admission?: Yes Plan: Patient is presently not requiring mechanical ventilation, she is on 2 L nasal cannula (2) Acute chronic obstructive pulmonary disease with respiratory failure Is this a current diagnosis for this admission?: Yes Plan: She has very severe COPD history of heavy tobacco use history of 3 pack a day cigarette for many years, continue inhaled steroid, bronchodilators (3) Type 2 diabetes mellitus Qualifiers: Diabetes mellitus senior living insulin use: with senior living use Diabetes mellitus complication status: with neurologic complications Diabetes mellitus complication detail: with polyneuropathy Qualified Code(s): E11.42 - Type 2 diabetes mellitus with diabetic polyneuropathy; Z79.4 - senior care (current) use of insulin Is this a current diagnosis for this admission?: Yes
--- NOTE | 2018-04-01 20:47 | PDOC PROGRESS REPORT ---
Subjective Progress Note for:: 04/01/18 Subjective:: Patient was admitted yesterday for the management of acute COPD exacerbation, yesterday she was not treated with IV Solu-Medrol, it was felt that she might do well on trelegy, but today she continues to wheeze a lot using intercostal muscles of breathing, she was started on Solu-Medrol today intravenously she is a diabetic, she most likely will develop hyperglycemia Reason For Visit: COPD EXACERBATION,HYPERCAPNIC RESPIRATORY FAILURE, Physical Exam Vital Signs: Temp Pulse Resp BP Pulse Ox 98.4 F 74 24 H 124/77 78 L 04/01/18 15:17 04/01/18 19:00 04/01/18 15:17 04/01/18 15:17 04/01/18 15:17 Intake & Output 03/31/18 04/01/18 04/02/18 06:59 06:59 06:59 Intake Total 1291 Output Total 300 0 Balance -300 1291 Weight 108.8 kg 108.8 kg General appearance: PRESENT: severe distress Eye exam: PRESENT: PERRLA Respiratory exam: PRESENT: accessory muscle use, wheezes Cardiovascular exam: PRESENT: +S1, +S2 GI/Abdominal exam: PRESENT: soft Neurological exam: PRESENT: alert Results Laboratory Results: 03/31/18 15:38 03/31/18 15:38 03/31/18 15:38 Troponin I < 0.012 Impressions: Chest X-Ray 03/31/18 13:47 IMPRESSION: NO ACUTE RADIOGRAPHIC FINDING IN THE CHEST. Cervical Spine CT 03/31/18 14:11 IMPRESSION: Mild degenerative disc changes, spondylosis, and facet arthropathy. No acute findings. Head CT 03/31/18 14:11 IMPRESSION: Involutional changes of aging with no acute intracranial imaging findings. EVIDENCE OF ACUTE STROKE: NO. Assessment & Plan - Diagnosis (1) Acute hypercapnic respiratory failure Is this a current diagnosis for this admission?: Yes (2) Acute chronic obstructive pulmonary disease with respiratory failure Is this a current diagnosis for this admission?: Yes Plan: Start IV Solu-Medrol, continue bronchodilators (3) Type 2 diabetes mellitus Qualifiers: Diabetes mellitus retirement insulin use: with retirement use Diabetes mellitus complication status: with neurologic complications Diabetes mellitus complication detail: with polyneuropathy Qualified Code(s): E11.42 - Type 2 diabetes mellitus with diabetic polyneuropathy; Z79.4 - group home (current) use of insulin Is this a current diagnosis for this admission?: Yes
[2018-04-01] MEDS: ATORVASTATIN CALCIUM 20 MG TABLET PO SCH (21:31)
[2018-04-02] MEDS: METHYLPREDNISOLONE INJ 125 MG/2 ML SDV IV SCH ×3 (05:19→21:42)
[2018-04-02] MEDS: LANSOPRAZOLE 30 MG TAB.RAP.DR PO SCH (05:20)
[2018-04-02] MEDS: GABAPENTIN 400 MG CAPSULE PO SCH ×3 (05:20→21:42)
[2018-04-02] MEDS: PIOGLITAZONE HCL 30 MG TABLET PO SCH (08:16)
[2018-04-02] MEDS: INSULIN LISPRO 100 UNIT/ML 3 ML VIAL SUBCUT PRN ×4 (08:17→23:49)
[2018-04-02] MEDS: INSULIN LISPRO 100 UNIT/ML 3 ML VIAL SUBCUT SCH ×3 (08:17→17:01)
--- NOTE | 2018-04-02 10:13 | PDOC PROGRESS REPORT ---
Subjective Progress Note for:: 04/02/18 Subjective:: Patient was admitted for the COPD acute exacerbations currently doing well Patient was started on IV Solu-Medrol Patient still coughing No chest pain no short of breath No other events happens Reason For Visit: COPD EXACERBATION,HYPERCAPNIC RESPIRATORY FAILURE, Physical Exam Vital Signs: Temp Pulse Resp BP Pulse Ox 97.9 F 70 24 H 97/68 L 100 04/02/18 08:23 04/02/18 08:23 04/02/18 08:23 04/02/18 08:23 04/02/18 08:23 Intake & Output 04/01/18 04/02/18 04/03/18 06:59 06:59 06:59 Intake Total 1291 Output Total 300 0 Balance -300 1291 Weight 108.8 kg 109.1 kg General appearance: PRESENT: no acute distress, well-developed, well-nourished Head exam: PRESENT: atraumatic, normocephalic Eye exam: PRESENT: conjunctiva pink, EOMI, PERRLA. ABSENT: scleral icterus Ear exam: PRESENT: normal external ear exam Mouth exam: PRESENT: moist, tongue midline Neck exam: PRESENT: full ROM. ABSENT: carotid bruit, JVD, lymphadenopathy, thyromegaly Respiratory exam: PRESENT: decreased breath sounds, wheezes Cardiovascular exam: PRESENT: RRR. ABSENT: diastolic murmur, rubs, systolic murmur Pulses: PRESENT: normal dorsalis pedis pul, +2 pedal pulses bilateral Vascular exam: PRESENT: normal capillary refill GI/Abdominal exam: PRESENT: normal bowel sounds, soft. ABSENT: distended, guarding, mass, organolmegaly, rebound, tenderness Rectal exam: PRESENT: deferred Neurological exam: PRESENT: alert, awake, oriented to person, oriented to place. ABSENT: motor sensory deficit Psychiatric exam: PRESENT: appropriate affect, normal mood. ABSENT: homicidal ideation, suicidal ideation Skin exam: PRESENT: dry, intact, warm. ABSENT: cyanosis, rash Results Laboratory Results: 03/31/18 15:38 03/31/18 15:38 03/31/18 15:38 Troponin I < 0.012 Impressions: Chest X-Ray 03/31/18 13:47 IMPRESSION: NO ACUTE RADIOGRAPHIC FINDING IN THE CHEST. Cervical Spine CT 03/31/18 14:11 IMPRESSION: Mild degenerative disc changes, spondylosis, and facet arthropathy. No acute findings. Head CT 03/31/18 14:11 IMPRESSION: Involutional changes of aging with no acute intracranial imaging findings. EVIDENCE OF ACUTE STROKE: NO. Assessment & Plan - Diagnosis (1) Acute chronic obstructive pulmonary disease with respiratory failure Is this a current diagnosis for this admission?: Yes (2) COPD exacerbation Is this a current diagnosis for this admission?: Yes (3) Type 2 diabetes mellitus Qualifiers: Diabetes mellitus [facility] insulin use: with joint terminal attack controller use Diabetes mellitus complication status: with neurologic complications Diabetes mellitus complication detail: with polyneuropathy Qualified Code(s): E11.42 - Type 2 diabetes mellitus with diabetic polyneuropathy; Z79.4 - oysterman (current) use of insulin Is this a current diagnosis for this admission?: Yes - Time Time Spent with patient: 15-24 minutes Medications reviewed and adjusted accordingly: Yes Anticipated discharge: Other Within: Other - Plan Summary Plan Summary: Continues IV Solu-Medrol and slowly taper continues to current medications
[2018-04-02] MEDS: FLUTICASONE/UMECLIDIN/VILANTER 100-62.5-25 MCG/DOSE IH SCH (10:25)
[2018-04-02] MEDS: METOPROLOL SUCCINATE 50 MG TAB.SR.24H PO SCH (10:26)
[2018-04-02] MEDS: SITAGLIPTIN PHOSPHATE 50 MG TABLET PO SCH (10:26)
[2018-04-02] MEDS: ASPIRIN 81 MG TABLET, ENT COATED PO SCH (10:26)
[2018-04-02] MEDS: MULTIVITAMIN TABLET PO SCH (10:26)
[2018-04-02] MEDS: DULOXETINE HCL 30 MG CAPSULE.DR PO SCH ×2 (10:26→21:41)
[2018-04-02] MEDS: LOSARTAN POTASSIUM 50 MG TABLET PO SCH (10:27)
[2018-04-02] MEDS: INSULIN DETEMIR 100 UNIT/ML 3 ML PEN SUBCUT SCH (17:00)
[2018-04-02] MEDS: IPRATROPIUM/ALBUTEROL 0.5-2.5 MG/3 ML AMPUL NEB PRN (18:11)
[2018-04-02] MEDS: ATORVASTATIN CALCIUM 20 MG TABLET PO SCH (21:42)
[2018-04-03] MEDS: ACETAMINOPHEN 325 MG TABLET PO PRN (04:05)
[2018-04-03] MEDS: METHYLPREDNISOLONE INJ 125 MG/2 ML SDV IV SCH ×3 (05:35→21:44)
[2018-04-03] MEDS: LANSOPRAZOLE 30 MG TAB.RAP.DR PO SCH (05:36)
[2018-04-03] MEDS: GABAPENTIN 400 MG CAPSULE PO SCH ×3 (05:36→21:49)
[2018-04-03] MEDS: FLUTICASONE/UMECLIDIN/VILANTER 100-62.5-25 MCG/DOSE IH SCH (09:23)
[2018-04-03] MEDS: INSULIN LISPRO 100 UNIT/ML 3 ML VIAL SUBCUT SCH ×3 (09:24→17:02)
[2018-04-03] MEDS: INSULIN LISPRO 100 UNIT/ML 3 ML VIAL SUBCUT PRN ×3 (09:24→17:02)
[2018-04-03] MEDS: PIOGLITAZONE HCL 30 MG TABLET PO SCH (09:27)
[2018-04-03] MEDS: MULTIVITAMIN TABLET PO SCH (09:28)
[2018-04-03] MEDS: ASPIRIN 81 MG TABLET, ENT COATED PO SCH (09:28)
[2018-04-03] MEDS: METOPROLOL SUCCINATE 50 MG TAB.SR.24H PO SCH (09:28)
[2018-04-03] MEDS: DULOXETINE HCL 30 MG CAPSULE.DR PO SCH ×2 (09:29→21:47)
[2018-04-03] MEDS: SITAGLIPTIN PHOSPHATE 50 MG TABLET PO SCH (09:29)
[2018-04-03] MEDS: LOSARTAN POTASSIUM 50 MG TABLET PO SCH (09:29)
[2018-04-03] MEDS: IPRATROPIUM/ALBUTEROL 0.5-2.5 MG/3 ML AMPUL NEB PRN (10:15)
[2018-04-03] MEDS ORDERED: MAG HYDROX/AL HYDROX/SIMETH SUSP 30 ML UDCUP PO PRN (11:35)
[2018-04-03 12:11] LABS: ARTERIAL BLOOD BASE EXCESS 2.5 mmol/L; ARTERIAL BLOOD H2CO3 1.77 mmol/L (1.05-1.35); ARTERIAL BLOOD HCO3 29.9 mmol/L (20-24); ARTERIAL BLOOD PCO2 58.9 mmHg (35-45); ARTERIAL BLOOD PH 7.32 (7.35-7.45); ARTERIAL BLOOD PO2 100.5 mmHg (80-100); ARTERIAL BLOOD TOTAL CO2 31.7 mmol/L (21-25)
[2018-04-03 12:12] LABS: ARTERIAL BLOOD FIO2 2L
--- NOTE | 2018-04-03 12:53 | PDOC PROGRESS REPORT ---
Subjective Progress Note for:: 04/03/18 Subjective:: Patient was admitted for the COPD acute exacerbations currently doing well Patient was started on IV Solu-Medrol Patient still coughing No chest pain no short of breath No other events happens Reason For Visit: COPD EXACERBATION,HYPERCAPNIC RESPIRATORY FAILURE, Physical Exam Vital Signs: Temp Pulse Resp BP Pulse Ox 97.8 F 71 16 116/71 97 04/03/18 08:00 04/03/18 10:17 04/03/18 10:17 04/03/18 08:00 04/03/18 10:17 Intake & Output 04/02/18 04/03/18 04/04/18 06:59 06:59 06:59 Intake Total 1291 1308 Output Total 0 1000 Balance 1291 308 Weight 109.1 kg 108.7 kg General appearance: PRESENT: no acute distress, well-developed, well-nourished Head exam: PRESENT: atraumatic, normocephalic Eye exam: PRESENT: conjunctiva pink, EOMI, PERRLA. ABSENT: scleral icterus Ear exam: PRESENT: normal external ear exam Mouth exam: PRESENT: moist, tongue midline Neck exam: PRESENT: full ROM. ABSENT: carotid bruit, JVD, lymphadenopathy, thyromegaly Cardiovascular exam: PRESENT: RRR. ABSENT: diastolic murmur, rubs, systolic murmur Vascular exam: PRESENT: normal capillary refill GI/Abdominal exam: PRESENT: normal bowel sounds, soft. ABSENT: distended, guarding, mass, organolmegaly, rebound, tenderness Rectal exam: PRESENT: deferred Extremities exam: PRESENT: pedal edema Neurological exam: PRESENT: alert, awake, oriented to person, oriented to place, oriented to time, oriented to situation, CN II-XII grossly intact. ABSENT: barbara r sensory deficit Psychiatric exam: PRESENT: appropriate affect, normal mood. ABSENT: homicidal ideation, suicidal ideation Skin exam: PRESENT: dry, intact, warm. ABSENT: cyanosis, rash Results Laboratory Results: 03/31/18 15:38 03/31/18 15:38 04/03/18 11:59 Carbonic Acid 1.77 H HCO3/H2CO3 Ratio 16:1 ABG pH 7.32 L ABG pCO2 58.9 H ABG pO2 100.5 H ABG HCO3 29.9 H ABG O2 Saturation 97.0 ABG Base Excess 2.5 FiO2 2L 03/31/18 15:38 Troponin I < 0.012 Impressions: Chest X-Ray 03/31/18 13:47 IMPRESSION: NO ACUTE RADIOGRAPHIC FINDING IN THE CHEST. Cervical Spine CT 03/31/18 14:11 IMPRESSION: Mild degenerative disc changes, spondylosis, and facet arthropathy. No acute findings. Head CT 03/31/18 14:11 IMPRESSION: Involutional changes of aging with no acute intracranial imaging findings. EVIDENCE OF ACUTE STROKE: NO. Assessment & Plan - Diagnosis (1) Acute chronic obstructive pulmonary disease with respiratory failure Is this a current diagnosis for this admission?: Yes Plan: Patient's PCO2 is a 59 We will put the patient on the BiPAP Repeat the ABG Reduce the IV steroids (2) COPD exacerbation Is this a current diagnosis for this admission?: Yes (3) Type 2 diabetes mellitus Qualifiers: Diabetes mellitus half-way insulin use: with termite exterminator use Diabetes mellitus complication status: with neurologic complications Diabetes mellitus complication detail: with polyneuropathy Qualified Code(s): E11.42 - Type 2 diabetes mellitus with diabetic polyneuropathy; Z79.4 - senior living (current) use of insulin Is this a current diagnosis for this admission?: Yes - Time Time Spent with patient: 15-24 minutes Medications reviewed and adjusted accordingly: Yes Anticipated discharge: Home - Plan Summary Plan Summary: Current medications
[2018-04-03] MEDS: INSULIN DETEMIR 100 UNIT/ML 3 ML PEN SUBCUT SCH (17:03)
[2018-04-03] MEDS: ATORVASTATIN CALCIUM 20 MG TABLET PO SCH (21:49)
[2018-04-04] MEDS: METHYLPREDNISOLONE INJ 125 MG/2 ML SDV IV SCH ×3 (05:50→22:20)
[2018-04-04] MEDS: GABAPENTIN 400 MG CAPSULE PO SCH ×3 (05:50→22:19)
[2018-04-04] MEDS: LANSOPRAZOLE 30 MG TAB.RAP.DR PO SCH (05:50)
[2018-04-04] MEDS: PIOGLITAZONE HCL 30 MG TABLET PO SCH (07:40)
[2018-04-04] MEDS: INSULIN LISPRO 100 UNIT/ML 3 ML VIAL SUBCUT SCH ×3 (07:40→17:39)
[2018-04-04] MEDS: INSULIN LISPRO 100 UNIT/ML 3 ML VIAL SUBCUT PRN ×3 (07:40→17:39)
[2018-04-04] MEDS: SITAGLIPTIN PHOSPHATE 50 MG TABLET PO SCH (09:35)
[2018-04-04] MEDS: METOPROLOL SUCCINATE 50 MG TAB.SR.24H PO SCH (09:35)
[2018-04-04] MEDS: MULTIVITAMIN TABLET PO SCH (09:36)
[2018-04-04] MEDS: DULOXETINE HCL 30 MG CAPSULE.DR PO SCH ×2 (09:36→22:19)
[2018-04-04] MEDS: LOSARTAN POTASSIUM 50 MG TABLET PO SCH (09:36)
[2018-04-04] MEDS: ASPIRIN 81 MG TABLET, ENT COATED PO SCH (09:36)
[2018-04-04] MEDS: FLUTICASONE/UMECLIDIN/VILANTER 100-62.5-25 MCG/DOSE IH SCH (09:36)
[2018-04-04] MEDS: INSULIN DETEMIR 100 UNIT/ML 3 ML PEN SUBCUT SCH (17:40)
--- NOTE | 2018-04-04 22:11 | PDOC PROGRESS REPORT ---
Subjective Progress Note for:: 04/04/18 Subjective:: Patient seen by the bedside, still wheezing Reason For Visit: COPD EXACERBATION,HYPERCAPNIC RESPIRATORY FAILURE, Physical Exam Vital Signs: Temp Pulse Resp BP Pulse Ox 97.5 F 68 16 110/67 98 04/04/18 15:29 04/04/18 16:00 04/04/18 16:00 04/04/18 15:29 04/04/18 16:00 Intake & Output 04/03/18 04/04/18 04/05/18 06:59 06:59 06:59 Intake Total 1308 1175 1342 Output Total 1000 1800 Balance 308 625 1342 Weight 108.7 kg 114.6 kg General appearance: PRESENT: no acute distress Eye exam: PRESENT: PERRLA Respiratory exam: PRESENT: wheezes Cardiovascular exam: PRESENT: +S1, +S2 GI/Abdominal exam: PRESENT: soft Neurological exam: PRESENT: alert, CN II-XII grossly intact Results Laboratory Results: 03/31/18 15:38 03/31/18 15:38 03/31/18 15:38 Troponin I < 0.012 Impressions: Chest X-Ray 03/31/18 13:47 IMPRESSION: NO ACUTE RADIOGRAPHIC FINDING IN THE CHEST. Cervical Spine CT 03/31/18 14:11 IMPRESSION: Mild degenerative disc changes, spondylosis, and facet arthropathy. No acute findings. Head CT 03/31/18 14:11 IMPRESSION: Involutional changes of aging with no acute intracranial imaging findings. EVIDENCE OF ACUTE STROKE: NO. Assessment & Plan - Diagnosis (1) Acute hypercapnic respiratory failure Is this a current diagnosis for this admission?: Yes (2) Acute chronic obstructive pulmonary disease with respiratory failure Is this a current diagnosis for this admission?: Yes Plan: Reduce Solu-Medrol dose to 30 mg IV every 8 (3) Type 2 diabetes mellitus Qualifiers: Diabetes mellitus etl analyst insulin use: with nursing home use Diabetes mellitus complication status: with neurologic complications Diabetes mellitus complication detail: with polyneuropathy Qualified Code(s): E11.42 - Type 2 diabetes mellitus with diabetic polyneuropathy; Z79.4 - [facility] (current) use of insulin Is this a current diagnosis for this admission?: Yes Plan: Steroid-induced glycemia with a background of diabetes mellitus
[2018-04-04] MEDS: ATORVASTATIN CALCIUM 20 MG TABLET PO SCH (22:19)
[2018-04-05] MEDS: LANSOPRAZOLE 30 MG TAB.RAP.DR PO SCH (06:29)
[2018-04-05] MEDS: GABAPENTIN 400 MG CAPSULE PO SCH ×3 (06:29→21:51)
[2018-04-05] MEDS: METHYLPREDNISOLONE INJ 40 MG/1 ML SDV IV SCH ×3 (06:29→21:50)
[2018-04-05] MEDS: SITAGLIPTIN PHOSPHATE 50 MG TABLET PO SCH (10:15)
[2018-04-05] MEDS: PIOGLITAZONE HCL 30 MG TABLET PO SCH (10:16)
[2018-04-05] MEDS: LOSARTAN POTASSIUM 50 MG TABLET PO SCH (10:16)
[2018-04-05] MEDS: METOPROLOL SUCCINATE 50 MG TAB.SR.24H PO SCH (10:16)
[2018-04-05] MEDS: DULOXETINE HCL 30 MG CAPSULE.DR PO SCH ×2 (10:16→21:51)
[2018-04-05] MEDS: MULTIVITAMIN TABLET PO SCH (10:16)
[2018-04-05] MEDS: ASPIRIN 81 MG TABLET, ENT COATED PO SCH (10:16)
[2018-04-05] MEDS: FLUTICASONE/UMECLIDIN/VILANTER 100-62.5-25 MCG/DOSE IH SCH (10:16)
[2018-04-05] MEDS: INSULIN LISPRO 100 UNIT/ML 3 ML VIAL SUBCUT SCH ×3 (10:17→18:08)
[2018-04-05] MEDS: INSULIN LISPRO 100 UNIT/ML 3 ML VIAL SUBCUT PRN ×3 (12:06→21:51)
[2018-04-05] MEDS: ACETAMINOPHEN 325 MG TABLET PO PRN ×2 (12:15→21:51)
[2018-04-05] MEDS: INSULIN DETEMIR 100 UNIT/ML 3 ML PEN SUBCUT SCH (18:09)
--- NOTE | 2018-04-05 21:20 | PDOC PROGRESS REPORT ---
Subjective Progress Note for:: 04/05/18 Subjective:: Patient seen by the bedside Reason For Visit: COPD EXACERBATION,HYPERCAPNIC RESPIRATORY FAILURE, Physical Exam Vital Signs: Temp Pulse Resp BP Pulse Ox 98.1 F 74 18 130/69 H 94 04/05/18 20:26 04/05/18 20:26 04/05/18 20:26 04/05/18 20:26 04/05/18 20:26 Intake & Output 04/04/18 04/05/18 04/06/18 06:59 06:59 06:59 Intake Total 1175 1460 804 Output Total 1800 1400 Balance -625 1460 -596 Weight 114.6 kg 87.8 kg Head exam: PRESENT: atraumatic, normocephalic Eye exam: PRESENT: conjunctiva pink, EOMI, PERRLA Neck exam: PRESENT: full ROM Respiratory exam: PRESENT: wheezes Cardiovascular exam: PRESENT: RRR, +S1, +S2 Pulses: PRESENT: normal dorsalis pedis pul, +2 pedal pulses bilateral Vascular exam: PRESENT: normal capillary refill GI/Abdominal exam: PRESENT: normal bowel sounds, soft Rectal exam: PRESENT: deferred Neurological exam: PRESENT: alert, CN II-XII grossly intact Results Laboratory Results: 03/31/18 15:38 03/31/18 15:38 03/31/18 15:38 Troponin I < 0.012 Impressions: Chest X-Ray 03/31/18 13:47 IMPRESSION: NO ACUTE RADIOGRAPHIC FINDING IN THE CHEST. Cervical Spine CT 03/31/18 14:11 IMPRESSION: Mild degenerative disc changes, spondylosis, and facet arthropathy. No acute findings. Head CT 03/31/18 14:11 IMPRESSION: Involutional changes of aging with no acute intracranial imaging findings. EVIDENCE OF ACUTE STROKE: NO. Assessment & Plan - Diagnosis (1) Acute hypercapnic respiratory failure Is this a current diagnosis for this admission?: Yes (2) Acute chronic obstructive pulmonary disease with respiratory failure Is this a current diagnosis for this admission?: Yes (3) Type 2 diabetes mellitus Qualifiers: Diabetes mellitus nursing home insulin use: with nursing home use Diabetes mellitus complication status: with neurologic complications Diabetes mellitus complication detail: with polyneuropathy Qualified Code(s): E11.42 - Type 2 diabetes mellitus with diabetic polyneuropathy; Z79.4 - ocean transportation intermediary (current) use of insulin Is this a current diagnosis for this admission?: Yes - Plan Summary Plan Summary: Reduce Solu-Medrol dose
[2018-04-05] MEDS: ATORVASTATIN CALCIUM 20 MG TABLET PO SCH (21:51)
[2018-04-06] MEDS: LANSOPRAZOLE 30 MG TAB.RAP.DR PO SCH (05:32)
[2018-04-06] MEDS: METHYLPREDNISOLONE INJ 40 MG/1 ML SDV IV SCH ×2 (05:32→13:53)
[2018-04-06] MEDS: GABAPENTIN 400 MG CAPSULE PO SCH ×3 (05:32→21:25)
[2018-04-06] MEDS: INSULIN LISPRO 100 UNIT/ML 3 ML VIAL SUBCUT SCH ×3 (08:53→17:24)
[2018-04-06] MEDS: PIOGLITAZONE HCL 30 MG TABLET PO SCH (08:54)
[2018-04-06] MEDS: SITAGLIPTIN PHOSPHATE 50 MG TABLET PO SCH (10:52)
[2018-04-06] MEDS: METOPROLOL SUCCINATE 50 MG TAB.SR.24H PO SCH (10:53)
[2018-04-06] MEDS: FLUTICASONE/UMECLIDIN/VILANTER 100-62.5-25 MCG/DOSE IH SCH (10:53)
[2018-04-06] MEDS: ASPIRIN 81 MG TABLET, ENT COATED PO SCH (10:53)
[2018-04-06] MEDS: LOSARTAN POTASSIUM 50 MG TABLET PO SCH (10:53)
[2018-04-06] MEDS: MULTIVITAMIN TABLET PO SCH (10:53)
[2018-04-06] MEDS: DULOXETINE HCL 30 MG CAPSULE.DR PO SCH ×2 (10:53→21:25)
[2018-04-06] MEDS: INSULIN LISPRO 100 UNIT/ML 3 ML VIAL SUBCUT PRN ×2 (13:52→22:51)
[2018-04-06] MEDS: INSULIN DETEMIR 100 UNIT/ML 3 ML PEN SUBCUT SCH (17:24)
--- NOTE | 2018-04-06 18:09 | PDOC PROGRESS REPORT ---
Subjective Progress Note for:: 04/06/18 Subjective:: Patient seen by the bedside, on auscultation of the chest there is less wheezing today, it seems that patient is not compliant with her medications she presently lives alone by herself will consult discharge planning regarding disposition on how to manage her medication her daughter . the used to stay in [place] but relocated to [place] because of job transfer ,she may need to be placed in a jail or at the minimum she would need an riveting machine operator tape control that can manage her medication Reason For Visit: COPD EXACERBATION,HYPERCAPNIC RESPIRATORY FAILURE, Physical Exam Vital Signs: Temp Pulse Resp BP Pulse Ox 97.9 F 52 L 14 116/82 96 04/06/18 15:21 04/06/18 15:21 04/06/18 15:21 04/06/18 15:21 04/06/18 15:21 Intake & Output 04/05/18 04/06/18 04/07/18 06:59 06:59 06:59 Intake Total 1460 1026 237 Output Total 3350 Balance 1460 -2324 237 Weight 87.8 kg 89.9 kg General appearance: PRESENT: no acute distress Eye exam: PRESENT: PERRLA Respiratory exam: PRESENT: clear to auscultation [place] Cardiovascular exam: PRESENT: +S1, +S2 GI/Abdominal exam: PRESENT: soft Neurological exam: PRESENT: alert Results Laboratory Results: 03/31/18 15:38 03/31/18 15:38 03/31/18 15:38 Troponin I < 0.012 Impressions: Chest X-Ray 03/31/18 13:47 IMPRESSION: NO ACUTE RADIOGRAPHIC FINDING IN THE CHEST. Cervical Spine CT 03/31/18 14:11 IMPRESSION: Mild degenerative disc changes, spondylosis, and facet arthropathy. No acute findings. Head CT 03/31/18 14:11 IMPRESSION: Involutional changes of aging with no acute intracranial imaging findings. EVIDENCE OF ACUTE STROKE: NO. Assessment & Plan - Diagnosis (1) Acute hypercapnic respiratory failure Is this a current diagnosis for this admission?: Yes (2) Acute chronic obstructive pulmonary disease with respiratory failure Is this a current diagnosis for this admission?: Yes (3) Type 2 diabetes mellitus Qualifiers: Diabetes mellitus terminal block assembler insulin use: with terminal block assembler use Diabetes mellitus complication status: with neurologic complications Diabetes mellitus complication detail: with polyneuropathy Qualified Code(s): E11.42 - Type 2 diabetes mellitus with diabetic polyneuropathy; Z79.4 - intermediate card tender (current) use of insulin Is this a current diagnosis for this admission?: Yes Plan: 1. Discontinue Solu-Medrol
[2018-04-06] MEDS: ATORVASTATIN CALCIUM 20 MG TABLET PO SCH (21:25)
[2018-04-07] MEDS: GABAPENTIN 400 MG CAPSULE PO SCH ×3 (05:10→21:36)
[2018-04-07] MEDS: LANSOPRAZOLE 30 MG TAB.RAP.DR PO SCH (05:10)
[2018-04-07] MEDS: ACETAMINOPHEN 325 MG TABLET PO PRN ×2 (05:42→23:21)
[2018-04-07] MEDS: INSULIN LISPRO 100 UNIT/ML 3 ML VIAL SUBCUT SCH ×3 (09:49→18:15)
[2018-04-07] MEDS: PIOGLITAZONE HCL 30 MG TABLET PO SCH (09:50)
[2018-04-07] MEDS: LOSARTAN POTASSIUM 50 MG TABLET PO SCH (09:50)
[2018-04-07] MEDS: METOPROLOL SUCCINATE 50 MG TAB.SR.24H PO SCH (09:50)
[2018-04-07] MEDS: FLUTICASONE/UMECLIDIN/VILANTER 100-62.5-25 MCG/DOSE IH SCH (09:50)
[2018-04-07] MEDS: MULTIVITAMIN TABLET PO SCH (09:50)
[2018-04-07] MEDS: DULOXETINE HCL 30 MG CAPSULE.DR PO SCH ×2 (09:50→21:36)
[2018-04-07] MEDS: SITAGLIPTIN PHOSPHATE 50 MG TABLET PO SCH (09:50)
[2018-04-07] MEDS: ASPIRIN 81 MG TABLET, ENT COATED PO SCH (09:51)
[2018-04-07] MEDS: INSULIN DETEMIR 100 UNIT/ML 3 ML PEN SUBCUT SCH (19:57)
[2018-04-07] MEDS: ATORVASTATIN CALCIUM 20 MG TABLET PO SCH (21:36)
--- NOTE | 2018-04-07 21:44 | PDOC PROGRESS REPORT ---
Subjective Progress Note for:: 04/07/18 Subjective:: Patient is alert seen by the bedside no new complaints Reason For Visit: COPD EXACERBATION,HYPERCAPNIC RESPIRATORY FAILURE, Physical Exam Vital Signs: Temp Pulse Resp BP Pulse Ox 97.7 F 64 20 113/54 L 100 04/07/18 19:49 04/07/18 19:49 04/07/18 19:49 04/07/18 19:49 04/07/18 19:49 Intake & Output 04/06/18 04/07/18 04/08/18 06:59 06:59 06:59 Intake Total 1505 586 9852 Output Total 3350 0 Balance -2324 832 1096 Weight 89.9 kg 113.8 kg General appearance: PRESENT: no acute distress Eye exam: PRESENT: PERRLA Respiratory exam: PRESENT: rhonchi Cardiovascular exam: PRESENT: +S1, +S2 GI/Abdominal exam: PRESENT: soft Neurological exam: PRESENT: alert Results Laboratory Results: 03/31/18 15:38 03/31/18 15:38 03/31/18 15:38 Troponin I < 0.012 Impressions: Chest X-Ray 03/31/18 13:47 IMPRESSION: NO ACUTE RADIOGRAPHIC FINDING IN THE CHEST. Cervical Spine CT 03/31/18 14:11 IMPRESSION: Mild degenerative disc changes, spondylosis, and facet arthropathy. No acute findings. Head CT 03/31/18 14:11 IMPRESSION: Involutional changes of aging with no acute intracranial imaging findings. EVIDENCE OF ACUTE STROKE: NO. Assessment & Plan - Diagnosis (1) Acute hypercapnic respiratory failure Is this a current diagnosis for this admission?: Yes Plan: Patient is presently not requiring mechanical ventilation, she is on 2 L nasal cannula (2) Acute chronic obstructive pulmonary disease with respiratory failure Is this a current diagnosis for this admission?: Yes (3) Type 2 diabetes mellitus Qualifiers: Diabetes mellitus termite control service representative insulin use: with snf use Diabetes mellitus complication status: with neurologic complications Diabetes mellitus complication detail: with polyneuropathy Qualified Code(s): E11.42 - Type 2 diabetes mellitus with diabetic polyneuropathy; Z79.4 - [facility] (current) use of insulin Is this a current diagnosis for this admission?: Yes
[2018-04-08] MEDS: GABAPENTIN 400 MG CAPSULE PO SCH ×3 (05:28→22:28)
[2018-04-08] MEDS: LANSOPRAZOLE 30 MG TAB.RAP.DR PO SCH (05:28)
[2018-04-08] MEDS: INSULIN LISPRO 100 UNIT/ML 3 ML VIAL SUBCUT SCH ×3 (08:28→18:00)
[2018-04-08] MEDS: PIOGLITAZONE HCL 30 MG TABLET PO SCH (08:28)
[2018-04-08] MEDS: SITAGLIPTIN PHOSPHATE 50 MG TABLET PO SCH (10:30)
[2018-04-08] MEDS: MULTIVITAMIN TABLET PO SCH (10:30)
[2018-04-08] MEDS: METOPROLOL SUCCINATE 50 MG TAB.SR.24H PO SCH (10:31)
[2018-04-08] MEDS: FLUTICASONE/UMECLIDIN/VILANTER 100-62.5-25 MCG/DOSE IH SCH (10:31)
[2018-04-08] MEDS: LOSARTAN POTASSIUM 50 MG TABLET PO SCH (10:31)
[2018-04-08] MEDS: ASPIRIN 81 MG TABLET, ENT COATED PO SCH (10:31)
[2018-04-08] MEDS: DULOXETINE HCL 30 MG CAPSULE.DR PO SCH ×2 (10:31→22:28)
[2018-04-08] MEDS: INSULIN DETEMIR 100 UNIT/ML 3 ML PEN SUBCUT SCH (18:03)
--- NOTE | 2018-04-08 20:12 | PDOC PROGRESS REPORT ---
Subjective Progress Note for:: 04/08/18 Subjective:: Patient seen by the bedside she may need oxygen at discharge Reason For Visit: COPD EXACERBATION,HYPERCAPNIC RESPIRATORY FAILURE, Physical Exam Vital Signs: Temp Pulse Resp BP Pulse Ox 98.3 F 68 18 109/51 L 100 04/08/18 16:59 04/08/18 16:59 04/08/18 16:59 04/08/18 16:59 04/08/18 16:59 Intake & Output 04/07/18 04/08/18 04/09/18 06:59 06:59 06:59 Intake Total 832 1636 592 Output Total 0 Balance 832 1636 592 Weight 113.8 kg 116.6 kg General appearance: PRESENT: no acute distress Eye exam: PRESENT: PERRLA Respiratory exam: PRESENT: wheezes Cardiovascular exam: PRESENT: +S1, +S2 GI/Abdominal exam: PRESENT: soft Results Laboratory Results: 03/31/18 15:38 03/31/18 15:38 03/31/18 15:38 Troponin I < 0.012 Impressions: Chest X-Ray 03/31/18 13:47 IMPRESSION: NO ACUTE RADIOGRAPHIC FINDING IN THE CHEST. Cervical Spine CT 03/31/18 14:11 IMPRESSION: Mild degenerative disc changes, spondylosis, and facet arthropathy. No acute findings. Head CT 03/31/18 14:11 IMPRESSION: Involutional changes of aging with no acute intracranial imaging findings. EVIDENCE OF ACUTE STROKE: NO. Assessment & Plan - Diagnosis (1) Acute hypercapnic respiratory failure Is this a current diagnosis for this admission?: Yes (2) Acute chronic obstructive pulmonary disease with respiratory failure Is this a current diagnosis for this admission?: Yes (3) Type 2 diabetes mellitus Qualifiers: Diabetes mellitus truck terminal manager insulin use: with truck terminal manager use Diabetes mellitus complication status: with neurologic complications Diabetes mellitus complication detail: with polyneuropathy Qualified Code(s): E11.42 - Type 2 diabetes mellitus with diabetic polyneuropathy; Z79.4 - extermination supervisor (current) use of insulin Is this a current diagnosis for this admission?: Yes - Plan Summary Plan Summary: Continue treatment
[2018-04-08] MEDS: ATORVASTATIN CALCIUM 20 MG TABLET PO SCH (22:29)
[2018-04-08] MEDS: INSULIN LISPRO 100 UNIT/ML 3 ML VIAL SUBCUT PRN (22:29)
[2018-04-09] MEDS: GABAPENTIN 400 MG CAPSULE PO SCH ×3 (05:07→22:04)
[2018-04-09] MEDS: LANSOPRAZOLE 30 MG TAB.RAP.DR PO SCH (05:07)
[2018-04-09] MEDS ORDERED: NORMAL SALINE 250 ML IV ONE (09:00)
[2018-04-09] MEDS: FLUTICASONE/UMECLIDIN/VILANTER 100-62.5-25 MCG/DOSE IH SCH (09:39)
[2018-04-09] MEDS: INSULIN LISPRO 100 UNIT/ML 3 ML VIAL SUBCUT SCH ×3 (09:44→17:43)
[2018-04-09] MEDS: MULTIVITAMIN TABLET PO SCH (09:47)
[2018-04-09] MEDS: SITAGLIPTIN PHOSPHATE 50 MG TABLET PO SCH (09:49)
[2018-04-09] MEDS: DULOXETINE HCL 30 MG CAPSULE.DR PO SCH ×2 (09:49→22:05)
[2018-04-09] MEDS: ASPIRIN 81 MG TABLET, ENT COATED PO SCH (09:50)
[2018-04-09] MEDS: PIOGLITAZONE HCL 30 MG TABLET PO SCH (09:50)
[2018-04-09] MEDS: LOSARTAN POTASSIUM 50 MG TABLET PO SCH (11:06)
[2018-04-09] MEDS: METOPROLOL SUCCINATE 50 MG TAB.SR.24H PO SCH (11:07)
[2018-04-09] MEDS: INSULIN DETEMIR 100 UNIT/ML 3 ML PEN SUBCUT SCH (17:46)
--- NOTE | 2018-04-09 18:39 | PDOC PROGRESS REPORT ---
Subjective Progress Note for:: 04/09/18 Subjective:: Patient seen by the bedside she may need oxygen at discharge Reason For Visit: COPD EXACERBATION,HYPERCAPNIC RESPIRATORY FAILURE, Physical Exam Vital Signs: Temp Pulse Resp BP Pulse Ox 100.0 F 74 20 84/49 L 98 04/09/18 11:34 04/09/18 14:00 04/09/18 11:34 04/09/18 11:34 04/09/18 11:34 Intake & Output 04/08/18 04/09/18 04/10/18 06:59 06:59 06:59 Intake Total 1636 592 250 Output Total 1000 Balance 1636 -408 250 Weight 116.6 kg 116 kg General appearance: PRESENT: no acute distress Eye exam: PRESENT: PERRLA Respiratory exam: PRESENT: wheezes Cardiovascular exam: PRESENT: +S1, +S2 Results Laboratory Results: 03/31/18 15:38 03/31/18 15:38 03/31/18 15:38 Troponin I < 0.012 Impressions: Chest X-Ray 03/31/18 13:47 IMPRESSION: NO ACUTE RADIOGRAPHIC FINDING IN THE CHEST. Cervical Spine CT 03/31/18 14:11 IMPRESSION: Mild degenerative disc changes, spondylosis, and facet arthropathy. No acute findings. Head CT 03/31/18 14:11 IMPRESSION: Involutional changes of aging with no acute intracranial imaging findings. EVIDENCE OF ACUTE STROKE: NO. Assessment & Plan - Diagnosis (1) Acute hypercapnic respiratory failure Is this a current diagnosis for this admission?: Yes (2) Acute chronic obstructive pulmonary disease with respiratory failure Is this a current diagnosis for this admission?: Yes (3) Type 2 diabetes mellitus Qualifiers: Diabetes mellitus intermediate accountant insulin use: with correction use Diabetes mellitus complication status: with neurologic complications Diabetes mellitus complication detail: with polyneuropathy Qualified Code(s): E11.42 - Type 2 diabetes mellitus with diabetic polyneuropathy; Z79.4 - [facility] (current) use of insulin Is this a current diagnosis for this admission?: Yes
[2018-04-09] MEDS: ATORVASTATIN CALCIUM 20 MG TABLET PO SCH (21:59)
[2018-04-09] MEDS: ACETAMINOPHEN 325 MG TABLET PO PRN (22:05)
[2018-04-10] MEDS: GABAPENTIN 400 MG CAPSULE PO SCH ×3 (05:41→21:12)
[2018-04-10] MEDS: LANSOPRAZOLE 30 MG TAB.RAP.DR PO SCH (05:41)
[2018-04-10] MEDS: IPRATROPIUM/ALBUTEROL 0.5-2.5 MG/3 ML AMPUL NEB PRN (10:16)
[2018-04-10] MEDS: SITAGLIPTIN PHOSPHATE 50 MG TABLET PO SCH (10:17)
[2018-04-10] MEDS: LOSARTAN POTASSIUM 50 MG TABLET PO SCH (10:17)
[2018-04-10] MEDS: METOPROLOL SUCCINATE 50 MG TAB.SR.24H PO SCH (10:17)
[2018-04-10] MEDS: ASPIRIN 81 MG TABLET, ENT COATED PO SCH (10:17)
[2018-04-10] MEDS: DULOXETINE HCL 30 MG CAPSULE.DR PO SCH ×2 (10:17→21:11)
[2018-04-10] MEDS: PIOGLITAZONE HCL 30 MG TABLET PO SCH (10:17)
[2018-04-10] MEDS: MULTIVITAMIN TABLET PO SCH (10:18)
[2018-04-10] MEDS: FLUTICASONE/UMECLIDIN/VILANTER 100-62.5-25 MCG/DOSE IH SCH (10:18)
[2018-04-10] MEDS: INSULIN LISPRO 100 UNIT/ML 3 ML VIAL SUBCUT SCH ×3 (10:18→17:25)
--- NOTE | 2018-04-10 12:34 | PDOC PROGRESS REPORT ---
Subjective Progress Note for:: 04/10/18 Subjective:: Patient was seen by the bedside, she was supposed to be discharged home today, discharge planning has already arranged for home oxygen but on auscultation of her chest she sounds terrible, there is diffuse wheeze on both lung ramos, she will be right back if discharged in this condition. She was treated with Solu- Medrol, prednisone also on trelegy, I will consult pulmonary for advice Reason For Visit: COPD EXACERBATION,HYPERCAPNIC RESPIRATORY FAILURE, Physical Exam Vital Signs: Temp Pulse Resp BP Pulse Ox 97.6 F 95 18 106/58 L 92 04/10/18 03:36 04/10/18 10:16 04/10/18 10:16 04/10/18 03:36 04/10/18 10:16 Intake & Output 04/09/18 04/10/18 04/11/18 06:59 06:59 06:59 Intake Total 592 1931 Output Total 1000 Balance -408 1931 Weight 116 kg 117 kg General appearance: PRESENT: mild distress Eye exam: PRESENT: PERRLA Respiratory exam: PRESENT: wheezes Cardiovascular exam: PRESENT: +S1, +S2 GI/Abdominal exam: PRESENT: soft Neurological exam: PRESENT: alert Results Laboratory Results: 03/31/18 15:38 03/31/18 15:38 03/31/18 15:38 Troponin I < 0.012 Impressions: Chest X-Ray 03/31/18 13:47 IMPRESSION: NO ACUTE RADIOGRAPHIC FINDING IN THE CHEST. Cervical Spine CT 03/31/18 14:11 IMPRESSION: Mild degenerative disc changes, spondylosis, and facet arthropathy. No acute findings. Head CT 03/31/18 14:11 IMPRESSION: Involutional changes of aging with no acute intracranial imaging findings. EVIDENCE OF ACUTE STROKE: NO. Assessment & Plan - Diagnosis (1) Acute hypercapnic respiratory failure Is this a current diagnosis for this admission?: Yes (2) Acute chronic obstructive pulmonary disease with respiratory failure Is this a current diagnosis for this admission?: Yes Plan: Pulmonary consultation, chest x-ray, bedside spirometry (3) Type 2 diabetes mellitus Qualifiers: Diabetes mellitus long-term insulin use: with long-term use Diabetes mellitus complication status: with neurologic complications Diabetes mellitus complication detail: with polyneuropathy Qualified Code(s): E11.42 - Type 2 diabetes mellitus with diabetic polyneuropathy; Z79.4 - [facility] (current) use of insulin Is this a current diagnosis for this admission?: Yes
--- NOTE | 2018-04-10 13:23 | RADIOLOGY REPORT (SQ) ---
EXAM DESCRIPTION: CHEST SINGLE VIEW COMPLETED DATE/TIME: 04/10/2018 12:54 pm REASON FOR STUDY: copd COMPARISON: Chest x-ray 03/31/2018, 03/22/2018. EXAM PARAMETERS: NUMBER OF VIEWS: One view. TECHNIQUE: Single frontal radiographic view of the chest acquired. RADIATION DOSE: NA LIMITATIONS: None. FINDINGS: LUNGS AND PLEURA: No consolidation, pneumothorax or pleural effusion. MEDIASTINUM AND HILAR STRUCTURES: No masses. Contour normal. HEART AND VASCULAR STRUCTURES: Heart normal in size. There is mild vascular congestion and interstit ial edema. BONES: Orthopedic hardware noted at the visualized proximal left humerus. HARDWARE: None in the chest. IMPRESSION: Mild vascular congestion and interstitial edema. TECHNICAL DOCUMENTATION: JOB ID: [id number] [employer]- All Rights Reserved Reading location - IP/workstation name: [email or web address]
[2018-04-10] MEDS: INSULIN LISPRO 100 UNIT/ML 3 ML VIAL SUBCUT PRN (13:35)
[2018-04-10] MEDS: ACETAMINOPHEN 325 MG TABLET PO PRN (17:24)
[2018-04-10] MEDS: INSULIN DETEMIR 100 UNIT/ML 3 ML PEN SUBCUT SCH (17:32)
[2018-04-10] MEDS ORDERED: FUROSEMIDE INJ/PF 40 MG/4 ML SDV IV ONE (19:00)
[2018-04-10] MEDS: ATORVASTATIN CALCIUM 20 MG TABLET PO SCH (21:12)
[2018-04-11] MEDS: ALBUTEROL SULFATE HFA (90 MCG/PUFF) 200 PUFF/8.5 GM MDI IH PRN (00:55)
[2018-04-11] MEDS: GABAPENTIN 400 MG CAPSULE PO SCH ×3 (05:05→21:09)
[2018-04-11] MEDS: LANSOPRAZOLE 30 MG TAB.RAP.DR PO SCH (05:08)
[2018-04-11] MEDS: INSULIN LISPRO 100 UNIT/ML 3 ML VIAL SUBCUT SCH ×3 (08:27→18:11)
[2018-04-11] MEDS: PIOGLITAZONE HCL 30 MG TABLET PO SCH (08:32)
[2018-04-11] MEDS: METOPROLOL SUCCINATE 50 MG TAB.SR.24H PO SCH (11:00)
[2018-04-11] MEDS: FLUTICASONE/UMECLIDIN/VILANTER 100-62.5-25 MCG/DOSE IH SCH (11:01)
[2018-04-11] MEDS: MULTIVITAMIN TABLET PO SCH (11:01)
[2018-04-11] MEDS: DULOXETINE HCL 30 MG CAPSULE.DR PO SCH ×2 (11:01→21:09)
[2018-04-11] MEDS: SITAGLIPTIN PHOSPHATE 50 MG TABLET PO SCH (11:01)
[2018-04-11] MEDS: LOSARTAN POTASSIUM 50 MG TABLET PO SCH (11:01)
[2018-04-11] MEDS: ASPIRIN 81 MG TABLET, ENT COATED PO SCH (11:01)
[2018-04-11] MEDS: INSULIN LISPRO 100 UNIT/ML 3 ML VIAL SUBCUT PRN (12:31)
[2018-04-11] MEDS: INSULIN DETEMIR 100 UNIT/ML 3 ML PEN SUBCUT SCH (18:12)
--- NOTE | 2018-04-11 21:05 | PDOC PROGRESS REPORT ---
Subjective Progress Note for:: 04/11/18 Subjective:: Patient was seen by the bedside, 2D echo was done today results pending Reason For Visit: COPD EXACERBATION,HYPERCAPNIC RESPIRATORY FAILURE, Physical Exam Vital Signs: Temp Pulse Resp BP Pulse Ox 98.5 F 72 22 H 114/64 100 04/11/18 19:52 04/11/18 19:52 04/11/18 19:52 04/11/18 19:52 04/11/18 19:52 Intake & Output 04/10/18 04/11/18 04/12/18 06:59 06:59 06:59 Intake Total 1931 1273 946 Output Total 222 Balance 1931 1051 946 Weight 117 kg 117 kg General appearance: PRESENT: no acute distress Eye exam: PRESENT: PERRLA Respiratory exam: PRESENT: wheezes Cardiovascular exam: PRESENT: +S1, +S2 GI/Abdominal exam: PRESENT: soft Neurological exam: PRESENT: alert Results Laboratory Results: 03/31/18 15:38 03/31/18 15:38 03/31/18 04/10/18 15:38 16:51 Troponin I < 0.012 NT-Pro-B Natriuret Pep 384 Impressions: Cervical Spine CT 03/31/18 14:11 IMPRESSION: Mild degenerative disc changes, spondylosis, and facet arthropathy. No acute findings. Head CT 03/31/18 14:11 IMPRESSION: Involutional changes of aging with no acute intracranial imaging findings. EVIDENCE OF ACUTE STROKE: NO. Chest X-Ray 04/10/18 00:00 IMPRESSION: Mild vascular congestion and interstitial edema. Assessment & Plan - Diagnosis (1) Acute hypercapnic respiratory failure Is this a current diagnosis for this admission?: Yes (2) Acute chronic obstructive pulmonary disease with respiratory failure Is this a current diagnosis for this admission?: Yes (3) Type 2 diabetes mellitus Qualifiers: Diabetes mellitus senior living insulin use: with superintendent container terminal use Diabetes mellitus complication status: with neurologic complications Diabetes mellitus complication detail: with polyneuropathy Qualified Code(s): E11.42 - Type 2 diabetes mellitus with diabetic polyneuropathy; Z79.4 - terminal manager (current) use of insulin Is this a current diagnosis for this admission?: Yes
[2018-04-11] MEDS: ATORVASTATIN CALCIUM 20 MG TABLET PO SCH (21:09)
--- NOTE | 2018-04-11 21:27 | XCELERA REPORT ---
[address] [address] Transthoracic Echocardiogram Report Name: DARCY NAVA Age: 72 yrs Gender: Female : 1945 Patient Status: Inpatient Patient Location: [address] [place] [address] Study Date: 04/11/2018 11:18 AM Procedure: A two-dimensional transthoracic echocardiogram with color flow and Doppler was performed. The study was technically difficult with many images being suboptimal in quality. Images were not obtained from all of the standard acoustic windows due to the limited scope of the study. Reason For Study: ASESS LV function History: CHF. Ordering Physician: TOÑA MCLEAN Performed By: Syeda Owen Interpretation Summary The left ventricle is normal in size. There is normal left ventricular wall thickness. No True apical 2 chamber views obtained.Hence cannot comment on the apical anterior , the basal anterior, the basal inferior and apical inferior quinn.The mid anterior , the mid inferior and the rest of the LV quinn contract normally. . LVEF is normal and is greater than 65% in the limited views. Doppler measurements suggest normal left ventricular diastolic function There is no thrombus. The right ventricle is not well visualized secondary to technical limitations Right atrium not well visualized secondary to technical limitations The left atrial size is normal. There is no evidence of mitral valve prolapse. There is no vegetation seen on the mitral valve. There is no mitral valve stenosis. There is no mitral regurgitation noted. There is no aortic valve stenosis No aortic regurgitation is present. There is no tricuspid stenosis. There is a trace to mild amount of tricuspid regurgitation There is mild pulmonary hypertension by echo RVSP is 41 mm of Hg , with RA mean of 10. There is no pericardial effusion. MMode/2D Measurements & Calculations RVDd: 3.3 cm LVIDd: 4.5 cm FS: 40.5 % Ao root diam: 3.0 cm IVSd: 0.85 cm LVIDs: 2.7 cm EDV(Teich): 94.3 ml Ao root area: 6.9 cm2 LVPWd: 1.0 cm ESV(Teich): 27.0 ml EF(Teich): 71.4 % Doppler Measurements & Calculations MV E max danuta: MV dec slope: Ao V2 max: LV V1 max P.7 cm/sec 144.2 cm/sec 6.7 mmHg MV A max danuta: 644.2 cm/sec2 Ao max PG: LV V1 max: 81.3 cm/sec MV dec time: 0.13 sec 8.3 mmHg 129.5 cm/sec MV E/A: 1.0 PA V2 max: TR max danuta: 91.3 cm/sec 277.5 cm/sec PA max P.3 mmHgTR max P.8 mmHg Left Ventricle The left ventricle is normal in size. There is normal left ventricular wall thickness. No True apical 2 chamber views obtained.Hence cannot comment on the apical anterior , the basal anterior, the basal inferior and apical inferior quinn.The mid anterior , the mid inferior and the rest of the LV quinn contract normally. . LVEF is normal and is greater than 65% in the limited views. Doppler measurements suggest normal left ventricular diastolic function. There is no thrombus. Right Ventricle The right ventricle is not well visualized secondary to technical limitations. Atria Right atrium not well visualized secondary to technical limitations. The left atrial size is normal. Mitral Valve There is no evidence of mitral valve prolapse. There is no vegetation seen on the mitral valve. There is no mitral valve stenosis. There is no mitral regurgitation noted. Aortic Valve There is no aortic valve stenosis. No aortic regurgitation is present. Tricuspid Valve There is no tricuspid stenosis. There is a trace to mild amount of tricuspid regurgitation. There is mild pulmonary hypertension by echo. RVSP is 41 mm of Hg , with RA mean of 10. Pulmonic Valve The pulmonic valve is not well visualized. Effusions There is no pericardial effusion. : TOÑA MCLEAN > Amy Saldana
[2018-04-12] MEDS: GABAPENTIN 400 MG CAPSULE PO SCH ×3 (05:22→22:27)
[2018-04-12] MEDS: LANSOPRAZOLE 30 MG TAB.RAP.DR PO SCH (05:22)
[2018-04-12] MEDS: INSULIN LISPRO 100 UNIT/ML 3 ML VIAL SUBCUT SCH ×6 (09:20→22:39)
[2018-04-12] MEDS: FLUTICASONE/UMECLIDIN/VILANTER 100-62.5-25 MCG/DOSE IH SCH (09:52)
[2018-04-12] MEDS: ASPIRIN 81 MG TABLET, ENT COATED PO SCH (09:52)
[2018-04-12] MEDS: MULTIVITAMIN TABLET PO SCH (09:52)
[2018-04-12] MEDS: DULOXETINE HCL 30 MG CAPSULE.DR PO SCH ×2 (09:52→22:26)
[2018-04-12] MEDS: LOSARTAN POTASSIUM 50 MG TABLET PO SCH (09:52)
[2018-04-12] MEDS: SITAGLIPTIN PHOSPHATE 50 MG TABLET PO SCH (09:53)
[2018-04-12] MEDS: METOPROLOL SUCCINATE 50 MG TAB.SR.24H PO SCH (09:53)
[2018-04-12] MEDS: PIOGLITAZONE HCL 30 MG TABLET PO SCH (09:53)
[2018-04-12 10:05] LABS: ABSOLUTE EOSINOPHILS # (AUTO) 0.3 10^3/uL (0.0-0.6); ABSOLUTE NEUT (AUTO) 7.3 10^3/uL (1.7-8.2); BASOPHILS % (AUTO) 0.4 % (0-2); EOSINOPHILS % (AUTO) 2.9 % (0-6); HEMATOCRIT 29.8 % (36.0-47.0); HEMOGLOBIN 10.1 g/dL (12.0-15.5); LYMPHOCYTES % (AUTO) 10.4 % (13-45); MEAN CORPUSCULAR VOLUME 91 fl (80-97); MONOCYTES % (AUTO) 10.1 % (3-13); PLATELET COUNT 276 10^3/uL (150-450); RED BLOOD COUNT 3.26 10^6/uL (3.72-5.28); RED CELL DISTRIBUTION WIDTH 16.8 % (11.5-14.0); SEGMENTED NEUTROPHILS % (AUTO) 76.2 % (42-78); TOTAL CELLS COUNTED % (AUTO) 100 %; WHITE BLOOD COUNT 9.6 10^3/uL (4.0-10.5)
[2018-04-12 10:24] LABS: ANION GAP 6 (5-19); BLOOD UREA NITROGEN 19 mg/dL (7-20); CARBON DIOXIDE 34 mmol/L (22-30); CHLORIDE 98 mmol/L (98-107); GLUCOSE 211 mg/dL (75-110); POTASSIUM 4.4 mmol/L (3.6-5.0); SODIUM 137.7 mmol/L (137-145)
[2018-04-12] MEDS: ACETAMINOPHEN 325 MG TABLET PO PRN (17:14)
[2018-04-12] MEDS ORDERED: LEVALBUTEROL HCL NEB 1.25 MG/3 ML AMPUL NEB PRN (17:16)
[2018-04-12] MEDS: INSULIN DETEMIR 100 UNIT/ML 3 ML PEN SUBCUT SCH (18:40)
--- NOTE | 2018-04-12 20:23 | PDOC PROGRESS REPORT ---
Subjective Progress Note for:: 04/12/18 Subjective:: Patient was seen by the bedside the 2D echo demonstrated normal ejection fraction of left ventricle ,normal diastolic function the left ventricle. She is still audibly wheezing, a full PFT will be obtained for this patient, am very reluctant to discharge her home, she is elderly she lives by herself, she may well have recent memory loss ,yesterday a 2D echo was done but she insisted that was not done suggesting to me that she has impaired memory to recent events which may be the beginning of dementia Reason For Visit: COPD EXACERBATION,HYPERCAPNIC RESPIRATORY FAILURE, Physical Exam Vital Signs: Temp Pulse Resp BP Pulse Ox 98.8 F 71 20 110/72 100 04/12/18 15:08 04/12/18 15:08 04/12/18 15:08 04/12/18 15:08 04/12/18 15:08 Intake & Output 04/11/18 04/12/18 04/13/18 06:59 06:59 06:59 Intake Total 1273 2081 1141 Output Total 222 1 Balance 1051 2080 1141 Weight 117 kg 117 kg General appearance: PRESENT: no acute distress Eye exam: PRESENT: PERRLA Respiratory exam: PRESENT: wheezes Cardiovascular exam: PRESENT: +S1, +S2 GI/Abdominal exam: PRESENT: soft Neurological exam: PRESENT: alert Results Laboratory Results: 04/12/18 09:20 04/12/18 09:20 04/12/18 04/12/18 09:20 09:20 WBC 9.6 RBC 3.26 L Hgb 10.1 L Hct 29.8 L MCV 91 MCH 31.0 MCHC 34.0 RDW 16.8 H Plt Count 276 Seg Neutrophils % 76.2 Lymphocytes % 10.4 L Monocytes % 10.1 Eosinophils % 2.9 Basophils % 0.4 Absolute Neutrophils 7.3 Absolute Lymphocytes 1.0 Absolute Monocytes 1.0 Absolute Eosinophils 0.3 Absolute Basophils 0.0 Sodium 137.7 Potassium 4.4 Chloride 98 Carbon Dioxide 34 H Anion Gap 6 BUN 19 Creatinine 0.74 Est GFR ( Amer) > 60 Est GFR (Non-Af Amer) > 60 Glucose 211 H Calcium 8.0 L 03/31/18 04/10/18 15:38 16:51 Troponin I < 0.012 NT-Pro-B Natriuret Pep 384 Impressions: Cervical Spine CT 03/31/18 14:11 IMPRESSION: Mild degenerative disc changes, spondylosis, and facet arthropathy. No acute findings. Head CT 03/31/18 14:11 IMPRESSION: Involutional changes of aging with no acute intracranial imaging findings. EVIDENCE OF ACUTE STROKE: NO. Chest X-Ray 04/10/18 00:00 IMPRESSION: Mild vascular congestion and interstitial edema. Assessment & Plan - Diagnosis (1) Acute hypercapnic respiratory failure Is this a current diagnosis for this admission?: Yes (2) Acute chronic obstructive pulmonary disease with respiratory failure Is this a current diagnosis for this admission?: Yes Plan: Obtain full PFT (3) Type 2 diabetes mellitus Qualifiers: Diabetes mellitus alf insulin use: with alf use Diabetes mellitus complication status: with neurologic complications Diabetes mellitus complication detail: with polyneuropathy Qualified Code(s): E11.42 - Type 2 diabetes mellitus with diabetic polyneuropathy; Z79.4 - alf (current) use of insulin Is this a current diagnosis for this admission?: Yes
[2018-04-12] MEDS: ATORVASTATIN CALCIUM 20 MG TABLET PO SCH (22:26)
[2018-04-13] MEDS: GABAPENTIN 400 MG CAPSULE PO SCH ×2 (05:29→13:42)
[2018-04-13] MEDS: LANSOPRAZOLE 30 MG TAB.RAP.DR PO SCH (05:29)
[2018-04-13] MEDS: ACETAMINOPHEN 325 MG TABLET PO PRN (05:53)
--- NOTE | 2018-04-13 08:15 | CONSULTATION REPORT E ---
Consultation Report NAME: DARCY NAVA : 1945 AGE: 72Y DATE: 04/12/2018 318 A TO: RUFINO GARZA M.D. FROM: TOÑA MCLEAN M.D. Requesting Physician HISTORY OF PRESENT ILLNESS: The patient is a 72-year-old female who came in with increased shortness of breath about 12 days ago. Currently feeling slightly better. Denies any fever, chills, increasing cough, or purulent sputum production. Claims that every time she was about to be discharged he was found to be wheezing on both lungs. Denies nausea, vomiting, diarrhea. No chest pain. PAST MEDICAL HISTORY: Includes: 1. DVT. 2. Hypertension. 3. Bronchitis. 4. COPD. 5. Pneumonia. 6. Diabetes type 2. 7. End-stage renal disease, stage III. 8. Hiatal hernia. 9. Arthritis. 10. Depression. 11. Anemia. PAST SURGICAL HISTORY: Includes: 1. Appendectomy. 2. Colostomy. 3. Revision of the colon. 4. Hysterectomy. 5. Orthopedic surgery, left shoulder. 6. Extended right hemicolectomy with *------*, which was reversed. SOCIAL HISTORY: Former smoker. Denies alcohol abuse or illicit drug use. FAMILY HISTORY: Revealed COPD, diabetes mellitus. Brother with throat cancer. Father with tuberculosis. MEDICATIONS AT HOME: Include: 1. Cymbalta. 2. Toprol. 3. Omeprazole. 4. Pioglitazone. 5. Insulin. 6. Aspirin. 7. Novolog. 8. Losartan. 9. Multivitamins. 10. Invokana. 11. Gabapentin. 12. Tradjenta. 13. Albuterol inhaler. 14. Trelegy inhaler. 15. Tylenol. MEDICATIONS IN THE HOSPITAL: Include: 1. Tylenol. 2. Maalox. 3. Albuterol inhaler. 4. Duoneb nebulizer. 5. Aspirin 81. 6. Lipitor. 7. Cymbalta. 8. Trilogy inhaler. 9. Gabapentin. 10. Insulin Lispro. 11. Prevacid. 12. Trelegy inhaler. 13. Losartan. 14. Metoprolol. 15. Multivitamins. 16. Lactose. 17. Januvia. ALLERGIES: Include: 1. DARVOCET. 2. NUCYNTA. REVIEW OF SYSTEMS: CONSTITUTIONAL: No fever or chills. EYES: No visual disturbance. EARS: No hearing changes or ear discharge. CARDIOVASCULAR: No chest pain. No palpitations or heart attack. RESPIRATORY: Complains of a cough and wheezing, dyspnea on exertion. GASTROINTESTINAL: No nausea, vomiting, abdominal pain, diarrhea. GENITOURINARY: No dysuria, hematuria. Positive renal stones. MUSCULOSKELETAL: No joint swelling. SKIN: No rashes or wounds. NERVOUS SYSTEM: No abnormal speech or focal weakness or syncopal episode. PSYCHIATRIC: No anxiety, depression, homicidal or suicidal ideations. PHYSICAL EXAMINATION: GENERAL: The patient is awake, alert, coherent, oriented x3. VITAL SIGNS: Temperature is 98.7 with a T-max of 99.2, blood pressure is 108/94, heart rate is 183, respiratory rate is 20, saturation 98% on 1.5 L nasal cannula. EYES: No jaundice or pallor. EARS, NOSE, AND THROAT: No ear drainage. No nasal discharge. CHEST AND LUNGS: No wheezing, no rhonchi, no coarse crackles. CARDIOVASCULAR: S1, S2 distinct. Normal rate, regular rhythm. ABDOMEN: Flabby. Positive bowel sounds. Soft, nondistended, nontender. EXTREMITIES: No joint swelling. No cellulitis. LABORATORY: CBC done today showed white count of 9.6, hemoglobin is 10.1, hematocrit is 28.8, and platelet count is 276. Chemistry done today showed sodium is 137.7, potassium is 4.4, chloride 98, CO2 is 24, BUN is 19, creatinine 0.74, glucose is 211, and calcium is 8. The chest x-ray done on March 21 showed normal heart shadow, no pleural effusion, no *------* process. ASSESSMENT: 1. COPD in acute exacerbation, currently stable, not in acute severe bronchospasm. 2. Morbid obesity. PLAN/RECOMMENDATION: 1. The patient may go home on Trelegy inhaler 1 puff once daily. May use Duoneb or albuterol nebulizer twice a day and as needed in between. 2. The patient may go home on Xopenex nebulizer treatment instead of the Duoneb to reduce instances of tachyarrhythmia. Will recommend home oxygen therapy evaluation by respiratory therapist prior to discharge. Recommend pulmonary clinic followup in 3-4 weeks after hospital discharge. DICTATING PHYSICIAN: RUFINO GARZA MD,SUSIE,MPH [id number] PHY#: [id number] ID: [id number] JOB#: [id number] ACCT: [id number] cc:RUFINO GARZA M.D. > [facility]
[2018-04-13] MEDS: INSULIN LISPRO 100 UNIT/ML 3 ML VIAL SUBCUT SCH ×6 (09:36→18:05)
[2018-04-13] MEDS: FLUTICASONE/UMECLIDIN/VILANTER 100-62.5-25 MCG/DOSE IH SCH (11:17)
[2018-04-13] MEDS: METOPROLOL SUCCINATE 50 MG TAB.SR.24H PO SCH (11:17)
[2018-04-13] MEDS: PIOGLITAZONE HCL 30 MG TABLET PO SCH (11:17)
[2018-04-13] MEDS: MULTIVITAMIN TABLET PO SCH (11:17)
[2018-04-13] MEDS: SITAGLIPTIN PHOSPHATE 50 MG TABLET PO SCH (11:17)
[2018-04-13] MEDS: LOSARTAN POTASSIUM 50 MG TABLET PO SCH (11:18)
[2018-04-13] MEDS: DULOXETINE HCL 30 MG CAPSULE.DR PO SCH (11:18)
[2018-04-13] MEDS: ASPIRIN 81 MG TABLET, ENT COATED PO SCH (11:18)
[2018-04-13 17:06] VITALS: BP 106/76
[2018-04-13] MEDS: INSULIN DETEMIR 100 UNIT/ML 3 ML PEN SUBCUT SCH (18:06)
--- NOTE | 2018-04-13 18:38 | PDOC DISCHARGE SUMMARY ---
General - Admit/Disc Date/PCP Admission Date/Primary Care Provider: 03/31/18 16:52 TOÑA MCLEAN MD Discharge Date: 04/13/18 - Discharge Diagnosis (1) Acute hypercapnic respiratory failure Is this a current diagnosis for this admission?: Yes (2) Acute chronic obstructive pulmonary disease with respiratory failure Is this a current diagnosis for this admission?: Yes (3) Type 2 diabetes mellitus Is this a current diagnosis for this admission?: Yes (4) Acute hypoxemic respiratory failure Is this a current diagnosis for this admission?: Yes - Additional Information Discharge Diet: Diabetic Discharge Activity: Activity As Tolerated Prescriptions: Fluticasone/Umeclidin/Vilanter [Trelegy 100-62.5-25 Mcg Ellipta 14 Dose/Dpi] 1 inh IH DAILY #3 inhaler Home Medications: Duloxetine HCl [Cymbalta] 60 mg PO Q12 07/21/17 Metoprolol Succinate [Toprol XL 100 mg Tablet] 100 mg PO DAILY 07/21/17 Omeprazole 40 mg PO DAILY 07/21/17 Pioglitazone HCl [Actos] 30 mg PO QAM 07/21/17 Insulin Detemir [Levemir Flextouch] 55 unit SQ QPM 08/24/17 Aspirin [Aspirin EC] 81 mg PO DAILY 09/06/17 Insulin Aspart [Novolog Flexpen] 10 unit SUBCUT MEALS 09/06/17 Losartan Potassium 100 mg PO DAILY 09/06/17 Multivitamin [Multiple Vitamins] 1 each PO DAILY 09/06/17 Canagliflozin [Invokana] 300 mg PO DAILY 03/13/18 Gabapentin 1,200 mg PO TID 03/13/18 Linagliptin [Tradjenta] 5 mg PO DAILY 03/13/18 Acetaminophen [Tylenol 325 mg Tablet] 650 mg PO Q4HP PRN tablet 03/23/18 Albuterol Sulfate [Proair HFA Inhalation Aerosol 8.5 gm MDI] 1 puff IH Q4 PRN #1 mdi 03/23/18 Fluticasone/Umeclidin/Vilanter [Trelegy 100-62.5-25 Mcg Ellipta 14 Dose/Dpi] 1 inh IH DAILY #3 inhaler 04/13/18 History of Present Illness History of Present Illness: DARCY NAVA is a 72 year old female, She has very severe chronic obstructive pulmonary disease she was just discharged from this hospital on March 23, 2018, she came to the emergency room for evaluation of shortness of breath. The history was that she fell at home, she thought she could have lost consciousness after the fall she was conscious when she fell, the fall initially was triggered by the floor carpet, it seems that she flipped over the floor because there was an object in the way. She triggered the life alert alarm, EMS came to her apartment she was evaluated she was found to be stable, she was left at home ,when the registered nursing professor came by to see her the registered nursing professor advised her to go to the emergency room for evaluation because she was wheezing and very short of breath. In the emergency room she was evaluated ,she was short of breath CT head was done it was negative for any acute pathology. The ABG on FiO2 of 4 L, pH 7.30 PO2 of 146.8 ,PCO2 56.0 bicarbonate 26.8 consistent with acute hypercapnic respiratory failure. The emergency room physician felt patient needed to be admitted for further evaluation and management of respiratory failure. Hospital Course Hospital Course: She has very severe COPD, essentially end-stage COPD, she was admitted for acute exacerbation of COPD associated with acute hypercapnic respiratory failure, she was treated with intravenous Solu-Medrol, bronchodilators. She has very severe COPD with prolonged expiratory wheeze.It seems that she has baseline wheezing ,despite treatment with Solu-Medrol and subsequently prednisone, bronchodilators ,antibiotic ,patient always wheezes, a 2D echo was done this virtually rule out cardiac cause for the wheeze ,the ejection fraction of left ventricle was normal, the diastolic function was normal. She was seen by pulmonary Dr. Doan who also recommend that the patient could be discharged home on trelegy She has hypoxemic respiratory failure requiring oxygen.She is being discharged home on oxygen ,She is at increased risk of decompensation. Physical Exam Vital Signs: Temp Pulse Resp BP Pulse Ox 97.7 F 66 16 131/74 H 94 04/13/18 16:53 04/13/18 16:53 04/13/18 16:53 04/13/18 16:53 04/13/18 16:53 Intake & Output 04/12/18 04/13/18 04/14/18 06:59 06:59 06:59 Intake Total 2080 1864 355 Output Total 1 0 Balance 2079 1864 355 Weight 117 kg 119.7 kg General appearance: PRESENT: no acute distress Head exam: PRESENT: atraumatic, normocephalic Eye exam: PRESENT: PERRLA Ear exam: PRESENT: normal external ear exam Mouth exam: PRESENT: tongue midline Neck exam: PRESENT: full ROM Respiratory exam: PRESENT: wheezes Cardiovascular exam: PRESENT: RRR, +S1, +S2 Pulses: PRESENT: normal dorsalis pedis pul, +2 pedal pulses bilateral Vascular exam: PRESENT: normal capillary refill GI/Abdominal exam: PRESENT: normal bowel sounds, soft Rectal exam: PRESENT: deferred Neurological exam: PRESENT: alert, CN II-XII grossly intact Psychiatric exam: PRESENT: appropriate affect, normal mood Skin exam: PRESENT: dry, intact, warm Results Laboratory Results: 04/12/18 09:20 04/12/18 09:20 03/31/18 04/10/18 15:38 16:51 Troponin I < 0.012 NT-Pro-B Natriuret Pep 384 Impressions: Cervical Spine CT 03/31/18 14:11 IMPRESSION: Mild degenerative disc changes, spondylosis, and facet arthropathy. No acute findings. Head CT 03/31/18 14:11 IMPRESSION: Involutional changes of aging with no acute intracranial imaging findings. EVIDENCE OF ACUTE STROKE: NO. Chest X-Ray 04/10/18 00:00 IMPRESSION: Mild vascular congestion and interstitial edema. Qualifiers - * PATIENT BEING DISCHARGED WITH ANY OF THE FOLLOWING DIAGNOSIS: No
== END 2018-04-13 18:28 | disposition home or self-care (01) | DRG 189 ==
LOC: ER 13:44 → EH 16:52 → 3W 18:51
PROVIDERS: ADMIT Internal Medicine; ATTEND Internal Medicine
DX: J96.21 Acute and chronic respiratory failure with hypoxia (principal); J44.1 Chronic obstructive pulmonary disease with (acute) exacerbation; E11.42 Type 2 diabetes mellitus with diabetic polyneuropathy; I12.9 Hypertensive chronic kidney disease with stage 1 through stage 4 chronic kidney disease, or unspecified chronic kidney disease; E11.22 Type 2 diabetes mellitus with diabetic chronic kidney disease; N18.3 Chronic kidney disease, stage 3 (moderate); K21.9 Gastro-esophageal reflux disease without esophagitis; S09.90XA Unspecified injury of head, initial encounter; E66.01 Morbid (severe) obesity due to excess calories; W19.XXXA Unspecified fall, initial encounter; Z60.2 Problems related to living alone; Z79.4 Long term (current) use of insulin; Z79.51 Long term (current) use of inhaled steroids; Z79.899 Other long term (current) drug therapy; Z87.891 Personal history of nicotine dependence; Z68.39 Body mass index [BMI] 39.0-39.9, adult
CPT/HCPCS: 36415; 36600; 70450; 71045; 72125; 80048; 80053; 82550; 82803; 82962; 83690; 83880; 84484; 85025; 93005; 93010; 93306; 94060; 94640; 94660; 94727; 94729; 99291; J1815; J1940; J2920; J2930; J3490; J7050; J7620

== ENCOUNTER 2018-05-11 13:03 | Inpatient (IN) | payer MEDICARE, MEDICAID ==
[2018-05-11] MEDS ORDERED: IPRATROPIUM/ALBUTEROL 0.5-2.5 MG/3 ML AMPUL NEB ONE (13:19)
[2018-05-11 13:44] LABS: ABSOLUTE BASOPHILS # (AUTO) 0.1 10^3/uL (0.0-0.2); ABSOLUTE EOSINOPHILS # (AUTO) 0.2 10^3/uL (0.0-0.6); ABSOLUTE LYMPHOCYTES (AUTO) 1.7 10^3/uL (0.5-4.7); ABSOLUTE MONOCYTES (AUTO) 0.6 10^3/uL (0.1-1.4); ABSOLUTE NEUT (AUTO) 6.1 10^3/uL (1.7-8.2); EOSINOPHILS % (AUTO) 2.2 % (0-6); HEMATOCRIT 34.6 % (36.0-47.0); HEMOGLOBIN 11.4 g/dL (12.0-15.5); LYMPHOCYTES % (AUTO) 19.6 % (13-45); MEAN CORPUSCULAR HEMOGLOBIN 30.8 pg (27.0-33.4); MEAN CORPUSCULAR VOLUME 93 fl (80-97); MONOCYTES % (AUTO) 6.6 % (3-13); PLATELET COUNT 332 10^3/uL (150-450); RED CELL DISTRIBUTION WIDTH 17.4 % (11.5-14.0); SEGMENTED NEUTROPHILS % (AUTO) 70.6 % (42-78); TOTAL CELLS COUNTED % (AUTO) 100 %; WHITE BLOOD COUNT 8.7 10^3/uL (4.0-10.5)
[2018-05-11 13:46] LABS: VENOUS BLOOD BASE EXCESS 3.3 mmol/L; VENOUS BLOOD HCO3 30.9 mmol/L (20-32); VENOUS BLOOD PH 7.31 (7.30-7.42)
--- NOTE | 2018-05-11 14:13 | RADIOLOGY REPORT (SQ) ---
EXAM DESCRIPTION: CHEST SINGLE VIEW COMPLETED DATE/TIME: 05/11/2018 1:52 pm REASON FOR STUDY: bed 12 sepsis alert COMPARISON: None. EXAM PARAMETERS: NUMBER OF VIEWS: One view. TECHNIQUE: Single frontal radiographic view of the chest acquired. RADIATION DOSE: NA LIMITATIONS: None. FINDINGS: LUNGS AND PLEURA: No opacities, masses or pneumothorax. No pleural effusion. MEDIASTINUM AND HILAR STRUCTURES: No masses. Contour normal. HEART AND VASCULAR STRUCTURES: Normal heart size. Aortic atherosclerosis. BONES: No acute abnormalities. Partially visualized left humeral intramedullary sofiya. HARDWARE: None in the chest. OTHER: No other significant finding. IMPRESSION: No evidence of acute cardiopulmonary process. TECHNICAL DOCUMENTATION: JOB ID: [id number] [employer]- All Rights Reserved Reading location - IP/workstation name: [email or web address]
[2018-05-11 14:14] LABS: ALANINE AMINOTRANSFERASE 14 U/L (9-52); ALBUMIN 3.9 g/dL (3.5-5.0); ALKALINE PHOSPHATASE 75 U/L (38-126); ANION GAP 8 (5-19); ASPARTATE AMINO TRANSFERASE 32 U/L (14-36); BILIRUBIN,DIRECT 0.4 mg/dL (0.0-0.4); BILIRUBIN,TOTAL 0.9 mg/dL (0.2-1.3); BLOOD UREA NITROGEN 20 mg/dL (7-20); CALCIUM 9.4 mg/dL (8.4-10.2); CARBON DIOXIDE 30 mmol/L (22-30); CHLORIDE 103 mmol/L (98-107); CREATINE KINASE < 20 U/L (30-135); GLUCOSE 137 mg/dL (75-110); POTASSIUM 4.4 mmol/L (3.6-5.0); SODIUM 141.2 mmol/L (137-145); TOTAL PROTEIN 7.5 g/dL (6.3-8.2)
[2018-05-11 14:28] LABS: INTERNATIONAL RATION (INR) 0.94
[2018-05-11 14:28] LABS: CREATINE KINASE MB < 0.22 ng/mL (<4.55); TROPONIN I < 0.012 ng/mL
[2018-05-11] MEDS ORDERED: METHYLPREDNISOLONE INJ 125 MG/2 ML SDV IV ONE (15:16)
--- NOTE | 2018-05-11 15:48 | ER Document Report ---
ED Respiratory Problem - General Chief Complaint: Cough Stated Complaint: DIFFICULTY BREATHING Time Seen by Provider: 05/11/18 13:19 Primary Care Provider: TOÑA MCLEAN MD [Primary Care Provider] - Follow up as needed Notes: Patient is a 72-year-old female well known COPD patient that presents to the emergency department with a respiratory distress. According to EMS report at bedside patient was on 3 L of her home oxygen satting around 80% tachypneic and appeared to be in distress to them. They administered 1 DuoNeb treatment and presented the patient to the emergency room. Patient states she always has generalized cough and congestion and has not had a fever. Patient is only speaking in 1-2 word sentences and does appear tachypneic at a rate of 28. Patient's oxygen saturation on 3 L at this point time is 95%. Although patient's work of breathing is increased. Again when you speak with her she speaks in 1-2 word sentences and immediately closes her eyes as though she is falling asleep. EMS states home health nurse called 911 due to patient's respiratory distress. Past medical history: COPD, CHF, diabetes Medications: Gabapentin, metoprolol, losartan, albuterol Allergies: Darvocet TRAVEL OUTSIDE OF THE [place] IN LAST 30 DAYS: No - Related Data Allergies/Adverse Reactions: propoxyphene [From Darvocet-N] Allergy (Verified 03/31/18 14:12) Delirium tapentadol [From Nucynta] Allergy (Verified 03/31/18 14:12) Delirium Past Medical History - General Information source: Patient, Emergency Med Personnel - Social History Smoking Status: Unknown if Ever Smoked Family History: Reviewed & Not Pertinent, COPD, DM, Malignancy - Brother with throat cancer, Other - Father with tuberculosis Patient has suicidal ideation: No Patient has homicidal ideation: No - Past Medical History Cardiac Medical History: Reports: Hx DVT, Hx Hypertension - ON MEDS Denies: Hx Atrial Fibrillation, Hx Congestive Heart Failure, Hx Coronary Artery Disease, Hx Heart Attack, Hx Hypercholesterolemia, Hx Peripheral Vascular Disease, Hx Pulmonary Embolism, Hx Heart Murmur Pulmonary Medical History: Reports: Hx Bronchitis, Hx COPD - USES NEB AND INHALER, Hx Pneumonia - 2 YRS AGO Denies: Hx Asthma, Hx Respiratory Failure, Hx Sleep Apnea, Hx Tuberculosis Neurological Medical History: Denies: Hx Cerebrovascular Accident, Hx Seizures Endocrine Medical History: Reports: Hx Diabetes Mellitus Type 2. Denies: Hx Graves' Disease, Hx Hyperthyroidism, Hx Hypothyroidism Renal/ Medical History: Reports: Hx End Stage Renal Disease - Stage 3- NO DIALYSIS. Denies: Hx Kidney Stones, Hx Ovarian Cysts, Hx Peritoneal Dialysis, Hx Pelvic Inflammatory Disease Malignancy Medical History: Reports: Hx Ovarian Cancer - PRE-CANCEROUS, TOTAL HYST, QUINN SALPINGOOPHORECTOMY. Denies: Hx Breast Cancer, Hx Cervical Cancer, Hx Leukemia, Hx Lung Cancer GI Medical History: Reports: Hx Hiatal Hernia. Denies: Hx Crohn's Disease, Hx Gastroesophageal Reflux Disease, Hx Irritable Bowel, Hx Liver Failure, Hx Pancreatitis, Hx Ulcer Musculoskeletal Medical History: Reports Hx Arthritis, Denies Hx Fibromyalgia, Denies Hx Multiple Sclerosis, Denies Hx Muscular Dystrophy Psychiatric Medical History: Reports: Hx Depression Denies: Hx Bipolar Disorder, Hx Dementia, Hx Post Traumatic Stress Disorder, Hx Schizophrenia Traumatic Medical History: Denies: Hx Fractures Infectious Medical History: Denies: Hx HIV Past Surgical History: Reports: Hx Abdominal Surgery, Hx Appendectomy, Hx Bowel Surgery - EX LAP, ILEOSTOMY, Hx Colostomy - History of colostomy revision , History of resection of the colon, Hx Hysterectomy, Hx Kidney (Renal Surgery) - Right kidney, Hx Orthopedic Surgery - left shoulder, Other - Recent history of extended right hemicolectomy with end ileostomy bag, rvsd. Denies: Hx Section, Hx Cholecystectomy, Hx Coronary Artery Bypass Graft, Hx Gastric Bypass Surgery, Hx Herniorrhaphy, Hx Mastectomy, Hx Pacemaker, Hx Tonsillectomy, Hx Tu bal Ligation - Immunizations Immunizations up to date: Yes Hx Diphtheria, Pertussis, Tetanus Vaccination: Yes Hx Pneumococcal Vaccination: 05/27/13 Review of Systems - Review of Systems Constitutional: See HPI EENT: See HPI Cardiovascular: Dyspnea. denies: Chest pain, Heart racing Respiratory: See HPI Gastrointestinal: No symptoms reported Genitourinary: No symptoms reported - He was Female Genitourinary: No symptoms reported Musculoskeletal: No symptoms reported Skin: No symptoms reported Hematologic/Lymphatic: No symptoms reported Neurological/Psychological: See HPI Physical Exam - Vital signs Vitals: Temp 98.2 F 05/11/18 13:13 - Notes Notes: GENERAL: Alert, interacts well. Tachypneic speaking in 1-2 word sentences HEAD: Normocephalic, atraumatic. EYES: Pupils equal, round, and reactive to light. Extraocular movements intact. ENT: Oral mucosa moist, tongue midline. NECK: Full range of motion. Supple. Trachea midline. LUNGS: Wheezes and intermittent rhonchi heard all lung ramos. HEART: tachycardic rate and rhythm. No murmur ABDOMEN: Obese soft, non-tender. Non-distended. Bowel sounds present in all 4 quadrants. EXTREMITIES: Moves all 4 extremities spontaneously. No edema, normal radial and dorsalis pedis pulses bilaterally. No cyanosis. BACK: no cervical, thoracic, lumbar midline tenderness. No saddle anesthesia, normal distal neurovascular exam. NEUROLOGICAL: Alert and oriented x3. Normal speech. PSYCH: Normal affect, normal mood. SKIN: Warm, dry, normal turgor. No rashes or lesions noted. Course - Re-evaluation Re-evalutation: Although patient's oxygen saturations were 96%On 3 L oxygen upon my initial evaluation she continues to be tachypneic speaking in 1-2 word sentences. When you are not engaging her it is as though she falls asleep. Patient states at one time "I feel tired." Patient was given a total of 9 mL of DuoNeb, 125 mg of Solu-Medrol. Patient was quickly moved to BiPAP for her respiratory distress although her oxygen saturation was holding around 96%. On BiPAP patient appears to be breathing more comfortably. Through the BiPAP she is able to speak in full sentences. 05/11/18 15:54 Patient's labs do reveal no signs of leukocytosis, her chest x-ray is negative for pneumonia or pneumothorax. Patient's VBG is within normal limits. It does appear that patient has had an acute exacerbation of her COPD. With initial oxygen saturations around 80% and her initial tachypnea presentation I have discussed this case with her primary care provider Dr. Mclean who is requesting admission to the [facility]. Patient is currently continued on BiPAP resting comfortably with an oxygen saturation of 99%, heart rate 71, blood pressure 113/95, respiratory rate 20. - Vital Signs Vital signs: Temp Pulse Resp BP Pulse Ox 98.2 F 18 129/77 H 100 05/11/18 13:13 05/11/18 14:03 05/11/18 14:03 05/11/18 14:03 - Laboratory Result Diagrams: 05/11/18 13:25 05/11/18 13:25 Laboratory results interpreted by me: 05/11/18 05/11/18 13:25 13:25 RBC 3.70 L Hgb 11.4 L Hct 34.6 L RDW 17.4 H Est GFR ( Amer) 55 L Est GFR (Non-Af Amer) 46 L Glucose 137 H Creatine Kinase < 20 L Discharge - Discharge Clinical Impression: COPD exacerbation Condition: Stable Disposition: ADMITTED INPATIENT Admitting Provider: [facility] Admitted: [facility] Referrals: TOÑA MCLEAN MD [Primary Care Provider] - Follow up as needed
[2018-05-11] MEDS ORDERED: ALBUTEROL SULFATE HFA (90 MCG/PUFF) 200 PUFF/8.5 GM MDI IH PRN (18:21)
[2018-05-11] MEDS ORDERED: (PENDING PHARMACY ID) (Insulin Aspart [Novolog Flexpen] 10 UNIT) SUBCUT SCH (18:30)
[2018-05-11] MEDS ORDERED: (PENDING PHARMACY ID) (Canagliflozin [Invokana] 300 MG) PO SCH (18:30)
[2018-05-11] MEDS ORDERED: (PENDING PHARMACY ID) (Linagliptin [Tradjenta] 5 MG) PO SCH (18:30)
[2018-05-11] MEDS: ASPIRIN 81 MG TABLET, ENT COATED PO SCH (20:01)
[2018-05-11] MEDS: MULTIVITAMIN TABLET PO SCH (20:01)
[2018-05-11] MEDS: METOPROLOL SUCCINATE 50 MG TAB.SR.24H PO SCH (20:02)
[2018-05-11] MEDS: GABAPENTIN 400 MG CAPSULE PO SCH (21:50)
[2018-05-11] MEDS: DULOXETINE HCL 30 MG CAPSULE.DR PO SCH (21:50)
[2018-05-11] MEDS: INSULIN DETEMIR 100 UNIT/ML 3 ML PEN SUBCUT SCH (21:51)
[2018-05-11] MEDS ORDERED: DEXTROSE 40% GEL 15 GM TUBE PO PRN (22:00)
[2018-05-11] MEDS ORDERED: GLUCAGON,HUMAN RECOMB 1 MG INJ IM PRN (22:00)
[2018-05-11] MEDS ORDERED: DEXTROSE 50%-WATER SYRINGE 12.5 GM/25 ML DOSE IV PRN (22:00)
[2018-05-11] MEDS ORDERED: DEXTROSE 50%-WATER SYRINGE 25 GM/50 ML DOSE IV PRN (22:00)
[2018-05-11] MEDS ORDERED: DEXTROSE 40% GEL 15 GM TUBE X 2 PO PRN (22:00)
[2018-05-11] MEDS: INSULIN LISPRO 100 UNIT/ML 3 ML VIAL SUBCUT SCH (22:05)
[2018-05-11 22:24] LABS: APPEARANCE,URINE CLEAR; BILIRUBIN,URINE NEGATIVE (NEGATIVE); COLOR,URINE YELLOW; GLUCOSE, URINE >=500 mg/dL (NEGATIVE); KETONES,URINE NEGATIVE (NEGATIVE); LEUKOCYTE ESTERASE,URINE NEGATIVE (NEGATIVE); NITRITE,URINE NEGATIVE (NEGATIVE); PROTEIN,URINE NEGATIVE (NEGATIVE); URINE SPECIFIC GRAVITY 1.023; UROBILINOGEN,URINE NEGATIVE mg/dL (<2.0)
[2018-05-12] MEDS: GABAPENTIN 400 MG CAPSULE PO SCH ×3 (05:48→22:39)
[2018-05-12] MEDS: INSULIN LISPRO 100 UNIT/ML 3 ML VIAL SUBCUT SCH ×7 (08:49→22:33)
[2018-05-12] MEDS: DULOXETINE HCL 30 MG CAPSULE.DR PO SCH ×2 (09:30→22:39)
[2018-05-12] MEDS: METOPROLOL SUCCINATE 50 MG TAB.SR.24H PO SCH (09:30)
[2018-05-12] MEDS: MULTIVITAMIN TABLET PO SCH (09:30)
[2018-05-12] MEDS: ASPIRIN 81 MG TABLET, ENT COATED PO SCH (09:30)
[2018-05-12] MEDS: FLUTICASONE/UMECLIDIN/VILANTER 100-62.5-25 MCG/DOSE IH SCH (09:31)
[2018-05-12] MEDS: SITAGLIPTIN PHOSPHATE 50 MG TABLET PO SCH (09:31)
[2018-05-12] MEDS: INSULIN DETEMIR 100 UNIT/ML 3 ML PEN SUBCUT SCH (17:08)
--- NOTE | 2018-05-12 18:06 | PDOC H&P ---
History of Present Illness Admission Date/PCP: 05/11/18 16:21 TOÑA MCLEAN MD History of Present Illness: DARCY NAVA is a 72 year old female, patient is well-known to me she has very severe chronic obstructive lung disease, chronic respiratory failure on home oxygen, she was just discharged from this hospital on 04/13/2018 she apparently came to the emergency room for evaluation of shortness of breath, in the emergency room she was treated, she was found to be tachypneic, the oxygen saturation on 3 L was 95% though she has increased work of breathing, breathing was supported with noninvasive positive pressure ventilation, BiPAP, it was felt that patient needed to be admitted to the hospital. Past Medical History Cardiac Medical History: Reports: DVT, Hypertension - ON MEDS Pulmonary Medical History: Reports: Bronchitis, Chronic Obstructive Pulmonary Disease (COPD) - USES NEB AND INHALER, Pneumonia - 2 YRS AGO Endocrine Medical History: Reports: Diabetes Mellitus Type 2 GI Medical History: Reports: Hiatal Hernia Musculoskeltal Medical History: Reports: Arthritis Psychiatric Medical History: Reports: Depression Hematology: Reports: Anemia Past Surgical History Past Surgical History: Reports: Appendectomy, Colostomy - History of colostomy revision , History of resection of the colon, Hysterectomy, Orthopedic Surgery - left shoulder, Other - Recent history of extended right hemicolectomy with end ileostomy bag, rvsd Social History Smoking Status: Former Smoker Frequency of Alcohol Use: Occasional Hx Recreational Drug Use: No Drugs: None Hx Prescription Drug Abuse: No Family History Family History: Reviewed & Not Pertinent, COPD, DM, Malignancy - Brother with throat cancer, Other - Father with tuberculosis Parental Family History Reviewed: Yes Children Family History Reviewed: Yes Sibling(s) Family History Reviewed.: Yes Medication/Allergy Home Medications: Acetaminophen [Tylenol 325 mg Tablet] 650 mg PO Q4HP PRN 05/11/18 Albuterol Sulfate [Proair Hfa Inhalation Aerosol 8.5 gm Mdi] 1 puff IH Q4HP PRN 05/11/18 Aspirin [Ecotrin 81 mg EC Tablet] 81 mg PO DAILY 05/11/18 Canagliflozin [Invokana] 300 mg PO DAILY 05/11/18 Duloxetine HCl [Cymbalta] 60 mg PO Q12 05/11/18 Fluticasone/Umeclidin/Vilanter [Trelegy 100-62.5-25 Mcg Ellipta 14 Dose/Dpi] 1 each IH DAILY 05/11/18 Gabapentin [Neurontin] 1,200 mg PO Q8 05/11/18 Insulin Aspart [Novolog Flexpen] 10 unit SUBCUT MEALS 05/11/18 Insulin Detemir [Levemir Insulin 300 Units/3 ml Insuln.pen] 55 unit SUBCUT QPM 05/11/18 Linagliptin [Tradjenta] 5 mg PO DAILY 05/11/18 Metoprolol Succinate [Toprol XL 100 mg Tablet] 100 mg PO DAILY 05/11/18 Multivitamin [Multiple Vitamins] 1 each PO DAILY 05/11/18 Allergies/Adverse Reactions: propoxyphene [From Darvocet-N] Allergy (Verified 03/31/18 14:12) Delirium tapentadol [From Nucynta] Allergy (Verified 03/31/18 14:12) Delirium Review of Systems Constitutional: ABSENT: chills, fever(s), headache(s), weight gain, weight loss Eyes: ABSENT: visual disturbances Ears: ABSENT: hearing changes Cardiovascular: PRESENT: dyspnea on exertion. ABSENT: chest pain, edema, orthropnea, palpitations Respiratory: PRESENT: dyspnea. ABSENT: cough, hemoptysis Gastrointestinal: ABSENT: abdominal pain, constipation, diarrhea, hematemesis, hematochezia, nausea, vomiting Genitourinary: ABSENT: dysuria, hematuria Musculoskeletal: ABSENT: joint swelling Integumentary: ABSENT: rash, wounds Neurological: ABSENT: abnormal gait, abnormal speech, confusion, dizziness, focal weakness, syncope Psychiatric: ABSENT: anxiety, depression, homidical ideation, suicidal ideation Endocrine: ABSENT: cold intolerance, heat intolerance, menstrual abnormalities, polydipsia, polyuria Hematologic/Lymphatic: ABSENT: easy bleeding, easy bruising, lymphadenopathy Physical Exam Vital Signs: Temp Pulse Resp BP Pulse Ox 97.7 F 72 20 111/63 96 05/12/18 07:13 05/12/18 14:00 05/12/18 07:13 05/12/18 07:13 05/12/18 07:13 Intake & Output 05/11/18 05/12/18 05/13/18 06:59 06:59 06:59 Intake Total 889 831 Output Total 900 700 Balance -11 131 Weight 111 kg General appearance: PRESENT: mild distress Head exam: PRESENT: atraumatic, normocephalic Eye exam: PRESENT: conjunctiva pink, EOMI, PERRLA Ear exam: PRESENT: normal external ear exam Mouth exam: PRESENT: moist, tongue midline Neck exam: PRESENT: full ROM Respiratory exam: PRESENT: wheezes Cardiovascular exam: PRESENT: RRR, +S1, +S2 Vascular exam: PRESENT: normal capillary refill GI/Abdominal exam: PRESENT: normal bowel sounds, soft Rectal exam: PRESENT: deferred Neurological exam: PRESENT: alert, CN II-XII grossly intact Psychiatric exam: PRESENT: appropriate affect, normal mood Skin exam: PRESENT: dry, intact, warm Results Laboratory Results: 05/11/18 13:25 05/11/18 13:25 05/11/18 22:00 Urine Color YELLOW Urine Appearance CLEAR Urine pH 6.0 Ur Specific [place] 1.023 Urine Protein NEGATIVE Urine Glucose (UA) >=500 H Urine Ketones NEGATIVE Urine Blood NEGATIVE Urine Nitrite NEGATIVE Ur Leukocyte Esterase NEGATIVE Urine WBC (Auto) 7 Urine RBC (Auto) 0 05/11/18 05/11/18 13:25 13:25 Creatine Kinase < 20 L CK-MB (CK-2) < 0.22 Troponin I < 0.012 Impressions: Chest X-Ray 05/11/18 13:06 IMPRESSION: No evidence of acute cardiopulmonary process. Assessment & Plan - Diagnosis (1) COPD with acute exacerbation Is this a current diagnosis for this admission?: Yes Plan: She has COPD with acute exacerbation, admitted to the hospital ,start treatment (2) Chronic respiratory failure Qualifiers: Respiratory failure complication: hypoxia Qualified Code(s): J96.11 - Chronic respiratory failure with hypoxia Is this a current diagnosis for this admission?: Yes
--- NOTE | 2018-05-12 21:35 | PDOC PROGRESS REPORT ---
Subjective Progress Note for:: 05/12/18 Subjective:: Patient was seen by the bedside, she was admitted for observation, she continues to wheeze using accessory muscles of breathing with increased work of breathing Reason For Visit: COPD EXACERBATION Physical Exam Vital Signs: Temp Pulse Resp BP Pulse Ox 98.5 F 71 20 132/64 H 100 05/12/18 19:54 05/12/18 19:54 05/12/18 19:54 05/12/18 19:54 05/12/18 19:54 Intake & Output 05/11/18 05/12/18 05/13/18 06:59 06:59 06:59 Intake Total 889 831 Output Total 900 700 Balance -11 131 Weight 111 kg General appearance: PRESENT: severe distress Eye exam: PRESENT: PERRLA Respiratory exam: PRESENT: accessory muscle use, wheezes Cardiovascular exam: PRESENT: +S1, +S2 GI/Abdominal exam: PRESENT: soft Neurological exam: PRESENT: alert Results Laboratory Results: 05/11/18 13:25 05/11/18 13:25 05/11/18 22:00 Urine Color YELLOW Urine Appearance CLEAR Urine pH 6.0 Ur Specific [place] 1.023 Urine Protein NEGATIVE Urine Glucose (UA) >=500 H Urine Ketones NEGATIVE Urine Blood NEGATIVE Urine Nitrite NEGATIVE Ur Leukocyte Esterase NEGATIVE Urine WBC (Auto) 7 Urine RBC (Auto) 0 05/11/18 05/11/18 13:25 13:25 Creatine Kinase < 20 L CK-MB (CK-2) < 0.22 Troponin I < 0.012 Impressions: Chest X-Ray 05/11/18 13:06 IMPRESSION: No evidence of acute cardiopulmonary process. 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
--- NOTE | 2018-05-12 22:15 | EKG REPORT ---
SEVERITY:- ABNORMAL ECG - SINUS RHYTHM LEFT ANTERIOR FASCICULAR BLOCK CONSIDER ANTERIOR INFARCT : Confirmed by: Felipe Glez 12-May-2018 22:14:43
[2018-05-12] MEDS: METHYLPREDNISOLONE INJ 125 MG/2 ML SDV IV SCH (22:39)
[2018-05-13] MEDS: GABAPENTIN 400 MG CAPSULE PO SCH ×3 (06:08→21:49)
[2018-05-13] MEDS: METHYLPREDNISOLONE INJ 125 MG/2 ML SDV IV SCH ×3 (06:09→21:50)
[2018-05-13] MEDS: INSULIN LISPRO 100 UNIT/ML 3 ML VIAL SUBCUT SCH ×7 (08:45→21:50)
[2018-05-13] MEDS: DULOXETINE HCL 30 MG CAPSULE.DR PO SCH ×2 (10:39→21:49)
[2018-05-13] MEDS: MULTIVITAMIN TABLET PO SCH (10:39)
[2018-05-13] MEDS: ASPIRIN 81 MG TABLET, ENT COATED PO SCH (10:39)
[2018-05-13] MEDS: METOPROLOL SUCCINATE 50 MG TAB.SR.24H PO SCH (10:39)
[2018-05-13] MEDS: POLYETHYLENE GLYCOL 3350 POWDER 17 GM/1 PACKET PO SCH (10:39)
[2018-05-13] MEDS: SITAGLIPTIN PHOSPHATE 50 MG TABLET PO SCH (10:39)
[2018-05-13] MEDS: FLUTICASONE/UMECLIDIN/VILANTER 100-62.5-25 MCG/DOSE IH SCH (10:41)
[2018-05-13] MEDS: INSULIN DETEMIR 100 UNIT/ML 3 ML PEN SUBCUT SCH (18:17)
--- NOTE | 2018-05-13 21:30 | PDOC PROGRESS REPORT ---
Subjective Progress Note for:: 05/13/18 Subjective:: Patient was seen by the bedside she is presently on IV Solu-Medrol, seems to be responding to treatment, this was started yesterday she will continue for 3 days of Solu-Medrol, she will stay the weekend Reason For Visit: COPD EXACERBATION Physical Exam Vital Signs: Temp Pulse Resp BP Pulse Ox 98.7 F 66 16 141/71 H 100 05/13/18 19:51 05/13/18 19:51 05/13/18 19:51 05/13/18 19:51 05/13/18 19:51 Intake & Output 05/12/18 05/13/18 05/14/18 06:59 06:59 06:59 Intake Total 051 390 2006 Output Total 900 1900 1100 Balance -11 969 208 Weight 111 kg 113.1 kg 113.1 kg General appearance: PRESENT: no acute distress Eye exam: PRESENT: PERRLA Respiratory exam: PRESENT: wheezes Cardiovascular exam: PRESENT: +S1, +S2 GI/Abdominal exam: PRESENT: soft Neurological exam: PRESENT: alert Results Laboratory Results: 05/11/18 13:25 05/11/18 13:25 05/11/18 05/11/18 13:25 13:25 Creatine Kinase < 20 L CK-MB (CK-2) < 0.22 Troponin I < 0.012 Impressions: Chest X-Ray 05/11/18 13:06 IMPRESSION: No evidence of acute cardiopulmonary process. Assessment & Plan - Diagnosis (1) COPD with acute exacerbation Is this a current diagnosis for this admission?: Yes Plan: Continue IV Solu-Medrol, bronchodilators (2) Chronic respiratory failure Qualifiers: Respiratory failure complication: hypoxia Qualified Code(s): J96.11 - Chronic respiratory failure with hypoxia Is this a current diagnosis for this admission?: Yes (3) Hypertension Qualifiers: Hypertension type: essential hypertension Qualified Code(s): I10 - Essential (primary) hypertension Is this a current diagnosis for this admission?: Yes (4) Type 2 diabetes mellitus with complication Qualifiers: Diabetes mellitus half-way insulin use: with half-way use Qualified Code(s): E11.8 - Type 2 diabetes mellitus with unspecified complications Is this a current diagnosis for this admission?: Yes
[2018-05-13] MEDS: ACETAMINOPHEN 325 MG TABLET PO PRN (21:49)
[2018-05-14] MEDS: ACETAMINOPHEN 325 MG TABLET PO PRN (05:54)
[2018-05-14] MEDS: METHYLPREDNISOLONE INJ 125 MG/2 ML SDV IV SCH ×3 (05:55→22:07)
[2018-05-14] MEDS: GABAPENTIN 400 MG CAPSULE PO SCH ×3 (05:55→22:06)
[2018-05-14] MEDS: INSULIN LISPRO 100 UNIT/ML 3 ML VIAL SUBCUT SCH ×7 (08:25→22:07)
[2018-05-14] MEDS: FLUTICASONE/UMECLIDIN/VILANTER 100-62.5-25 MCG/DOSE IH SCH (09:24)
[2018-05-14] MEDS: POLYETHYLENE GLYCOL 3350 POWDER 17 GM/1 PACKET PO SCH (09:25)
[2018-05-14] MEDS: SITAGLIPTIN PHOSPHATE 50 MG TABLET PO SCH (09:25)
[2018-05-14] MEDS: ASPIRIN 81 MG TABLET, ENT COATED PO SCH (09:26)
[2018-05-14] MEDS: MULTIVITAMIN TABLET PO SCH (09:26)
[2018-05-14] MEDS: METOPROLOL SUCCINATE 50 MG TAB.SR.24H PO SCH (09:26)
[2018-05-14] MEDS: DULOXETINE HCL 30 MG CAPSULE.DR PO SCH ×2 (09:26→22:06)
--- NOTE | 2018-05-14 10:06 | PDOC PROGRESS REPORT ---
Subjective Progress Note for:: 05/14/18 Subjective:: Patient is currently doing well Patient was admitted because of the COPD and chronic respiratory failure Patient was put on IV steroid Patient is denied any chest pain denied any shortness of the breath today feel better compared to yesterday Reason For Visit: COPD EXACERBATION Physical Exam Vital Signs: Temp Pulse Resp BP Pulse Ox 98.1 F 66 17 153/75 H 100 05/14/18 08:04 05/14/18 08:04 05/14/18 08:04 05/14/18 08:04 05/14/18 08:04 Intake & Output 05/13/18 05/14/18 05/15/18 06:59 06:59 06:59 Intake Total 931 2004 Output Total 1900 2400 Balance -969 -395 Weight 113.1 kg 108.4 kg General appearance: PRESENT: no acute distress, well-developed, well-nourished Head exam: PRESENT: atraumatic, normocephalic Eye exam: PRESENT: conjunctiva pink, EOMI, PERRLA. ABSENT: scleral icterus Ear exam: PRESENT: normal external ear exam Mouth exam: PRESENT: moist, tongue midline Neck exam: PRESENT: full ROM. ABSENT: carotid bruit, JVD, lymphadenopathy, thyromegaly Respiratory exam: PRESENT: clear to auscultation [place] Cardiovascular exam: PRESENT: RRR. ABSENT: diastolic murmur, rubs, systolic murmur Vascular exam: PRESENT: normal capillary refill GI/Abdominal exam: PRESENT: normal bowel sounds, soft. ABSENT: distended, guarding, mass, organolmegaly, rebound, tenderness Rectal exam: PRESENT: deferred Neurological exam: PRESENT: alert, awake, oriented to person, oriented to place, oriented to time, oriented to situation, CN II-XII grossly intact. ABSENT: motor sensory deficit Psychiatric exam: PRESENT: appropriate affect, normal mood. ABSENT: homicidal ideation, suicidal ideation Skin exam: PRESENT: dry, intact, warm. ABSENT: cyanosis, rash Results Laboratory Results: 05/11/18 13:25 05/11/18 13:25 05/11/18 05/11/18 13:25 13:25 Creatine Kinase < 20 L CK-MB (CK-2) < 0.22 Troponin I < 0.012 Impressions: Chest X-Ray 02/27/19 13:06 IMPRESSION: No evidence of acute cardiopulmonary process. Assessment & Plan - Diagnosis (1) COPD with acute exacerbation Is this a current diagnosis for this admission?: Yes Plan: Reduce the IV steroid continues to nebulizer (2) Chronic respiratory failure Qualifiers: Respiratory failure complication: hypoxia Qualified Code(s): J96.11 - Chronic respiratory failure with hypoxia Is this a current diagnosis for this admission?: Yes Plan: Currently all getting better (3) Diabetes mellitus type 2 in obese Is this a current diagnosis for this admission?: Yes Plan: Continues a sliding scale - Time Time Spent with patient: 25-34 minutes Medications reviewed and adjusted accordingly: Yes Anticipated discharge: Home Within: Other - Plan Summary Plan Summary: Reduce the IV steroid
[2018-05-14] MEDS: INSULIN DETEMIR 100 UNIT/ML 3 ML PEN SUBCUT SCH (17:42)
[2018-05-14] MEDS ORDERED: ONDANSETRON HCL INJ/PF 4 MG/2 ML SDV IV PRN (19:07)
[2018-05-15] MEDS: ACETAMINOPHEN 325 MG TABLET PO PRN (00:10)
[2018-05-15] MEDS: METHYLPREDNISOLONE INJ 125 MG/2 ML SDV IV SCH ×3 (05:37→22:11)
[2018-05-15] MEDS: GABAPENTIN 400 MG CAPSULE PO SCH ×3 (05:37→22:10)
[2018-05-15 06:25] LABS: ABSOLUTE LYMPHOCYTES (AUTO) 1.6 10^3/uL (0.5-4.7); ABSOLUTE MONOCYTES (AUTO) 0.6 10^3/uL (0.1-1.4); ABSOLUTE NEUT (AUTO) 9.7 10^3/uL (1.7-8.2); BASOPHILS % (AUTO) 0.1 % (0-2); HEMOGLOBIN 11.4 g/dL (12.0-15.5); LYMPHOCYTES % (AUTO) 13.6 % (13-45); MEAN CORPUSCULAR HEMOGLOBIN 30.8 pg (27.0-33.4); MEAN CORPUSCULAR HGB CONC 33.6 g/dL (32.0-36.0); MEAN CORPUSCULAR VOLUME 92 fl (80-97); MONOCYTES % (AUTO) 4.9 % (3-13); PLATELET COUNT 260 10^3/uL (150-450); RED BLOOD COUNT 3.71 10^6/uL (3.72-5.28); RED CELL DISTRIBUTION WIDTH 16.8 % (11.5-14.0); SEGMENTED NEUTROPHILS % (AUTO) 81.4 % (42-78); TOTAL CELLS COUNTED % (AUTO) 100 %; WHITE BLOOD COUNT 11.9 10^3/uL (4.0-10.5)
[2018-05-15 06:41] LABS: ANION GAP 6 (5-19); BLOOD UREA NITROGEN 35 mg/dL (7-20); CALCIUM 9.3 mg/dL (8.4-10.2); CARBON DIOXIDE 28 mmol/L (22-30); CHLORIDE 103 mmol/L (98-107); GLUCOSE 181 mg/dL (75-110); POTASSIUM 4.7 mmol/L (3.6-5.0); SODIUM 137.4 mmol/L (137-145)
[2018-05-15] MEDS: INSULIN LISPRO 100 UNIT/ML 3 ML VIAL SUBCUT SCH ×7 (07:55→21:54)
[2018-05-15] MEDS: POLYETHYLENE GLYCOL 3350 POWDER 17 GM/1 PACKET PO SCH (09:54)
[2018-05-15] MEDS: FLUTICASONE/UMECLIDIN/VILANTER 100-62.5-25 MCG/DOSE IH SCH (09:54)
[2018-05-15] MEDS: SITAGLIPTIN PHOSPHATE 50 MG TABLET PO SCH (09:55)
[2018-05-15] MEDS: MULTIVITAMIN TABLET PO SCH (09:55)
[2018-05-15] MEDS: DULOXETINE HCL 30 MG CAPSULE.DR PO SCH ×2 (09:55→22:10)
[2018-05-15] MEDS: ASPIRIN 81 MG TABLET, ENT COATED PO SCH (09:55)
[2018-05-15] MEDS: METOPROLOL SUCCINATE 50 MG TAB.SR.24H PO SCH (09:55)
--- NOTE | 2018-05-15 10:15 | PDOC PROGRESS REPORT ---
Subjective Progress Note for:: 05/15/18 Subjective:: Patient is currently doing well Patient is denied any chest pain denied any shortness of the breath Reason For Visit: COPD EXACERBATION Physical Exam Vital Signs: Temp Pulse Resp BP Pulse Ox 97.6 F 67 20 157/86 H 100 05/15/18 08:20 05/15/18 08:20 05/15/18 08:20 05/15/18 08:20 05/15/18 08:20 Intake & Output 05/14/18 05/15/18 05/16/18 06:59 06:59 06:59 Intake Total 2004 159 Output Total 0 2100 Balance -395 -504 Weight 108.4 kg 112.8 kg General appearance: PRESENT: no acute distress, well-developed, well-nourished Head exam: PRESENT: atraumatic, normocephalic Eye exam: PRESENT: conjunctiva pink, EOMI, PERRLA. ABSENT: scleral icterus Ear exam: PRESENT: normal external ear exam Mouth exam: PRESENT: moist, tongue midline Neck exam: PRESENT: full ROM. ABSENT: carotid bruit, JVD, lymphadenopathy, thyromegaly Respiratory exam: PRESENT: clear to auscultation [place] Cardiovascular exam: PRESENT: RRR. ABSENT: diastolic murmur, rubs, systolic murmur Vascular exam: PRESENT: normal capillary refill GI/Abdominal exam: PRESENT: normal bowel sounds, soft. ABSENT: distended, guarding, mass, organolmegaly, rebound, tenderness Rectal exam: PRESENT: deferred Neurological exam: PRESENT: alert, awake, oriented to person, oriented to place, oriented to time, oriented to situation, CN II-XII grossly intact. ABSENT: motor sensory deficit Psychiatric exam: PRESENT: appropriate affect, normal mood. ABSENT: homicidal ideation, suicidal ideation Skin exam: PRESENT: dry, intact, warm. ABSENT: cyanosis, rash Results Laboratory Results: 05/15/18 06:10 05/15/18 06:10 05/15/18 05/15/18 06:10 06:10 WBC 11.9 H RBC 3.71 L Hgb 11.4 L Hct 34.0 L MCV 92 MCH 30.8 MCHC 33.6 RDW 16.8 H Plt Count 260 Seg Neutrophils % 81.4 H Lymphocytes % 13.6 Monocytes % 4.9 Eosinophils % 0.0 Basophils % 0.1 Absolute Neutrophils 9.7 H Absolute Lymphocytes 1.6 Absolute Monocytes 0.6 Absolute Eosinophils 0.0 Absolute Basophils 0.0 Sodium 137.4 Potassium 4.7 Chloride 103 Carbon Dioxide 28 Anion Gap 6 BUN 35 H Creatinine 1.03 Est GFR ( Amer) > 60 Est GFR (Non-Af Amer) 53 L Glucose 181 H Calcium 9.3 05/11/18 22:00 Clean Catch Midstream Urine Culture - Final Enterococcus Faecalis(Group D) 05/11/18 05/11/18 13:25 13:25 Creatine Kinase < 20 L CK-MB (CK-2) < 0.22 Troponin I < 0.012 Impressions: Chest X-Ray 05/11/18 13:06 IMPRESSION: No evidence of acute cardiopulmonary process. Assessment & Plan - Diagnosis (1) COPD with acute exacerbation Is this a current diagnosis for this admission?: Yes Plan: Currently getting better continues to nebulizer treatment and IV steroids (2) Chronic respiratory failure Qualifiers: Respiratory failure complication: hypoxia Qualified Code(s): J96.11 - Chronic respiratory failure with hypoxia Is this a current diagnosis for this admission?: Yes Plan: Currently all getting better (3) Diabetes mellitus type 2 in obese Is this a current diagnosis for this admission?: Yes Plan: Continues a sliding scale - Time Time Spent with patient: 15-24 minutes Medications reviewed and adjusted accordingly: Yes Anticipated discharge: Home Within: Other - Plan Summary Plan Summary: Continues to current medications
[2018-05-15] MEDS: INSULIN DETEMIR 100 UNIT/ML 3 ML PEN SUBCUT SCH (17:53)
[2018-05-16 05:02] LABS: ABSOLUTE LYMPHOCYTES (AUTO) 0.8 10^3/uL (0.5-4.7); ABSOLUTE MONOCYTES (AUTO) 0.3 10^3/uL (0.1-1.4); ABSOLUTE NEUT (AUTO) 7.1 10^3/uL (1.7-8.2); BASOPHILS % (AUTO) 0.2 % (0-2); HEMATOCRIT 35.3 % (36.0-47.0); LYMPHOCYTES % (AUTO) 9.4 % (13-45); MEAN CORPUSCULAR HEMOGLOBIN 31.3 pg (27.0-33.4); MEAN CORPUSCULAR HGB CONC 33.9 g/dL (32.0-36.0); MEAN CORPUSCULAR VOLUME 92 fl (80-97); MONOCYTES % (AUTO) 3.5 % (3-13); PLATELET COUNT 188 10^3/uL (150-450); RED BLOOD COUNT 3.83 10^6/uL (3.72-5.28); RED CELL DISTRIBUTION WIDTH 16.3 % (11.5-14.0); SEGMENTED NEUTROPHILS % (AUTO) 86.9 % (42-78); TOTAL CELLS COUNTED % (AUTO) 100 %; WHITE BLOOD COUNT 8.2 10^3/uL (4.0-10.5)
[2018-05-16 05:14] LABS: ANION GAP 8 (5-19); BLOOD UREA NITROGEN 29 mg/dL (7-20); CALCIUM 9.1 mg/dL (8.4-10.2); CARBON DIOXIDE 28 mmol/L (22-30); CHLORIDE 104 mmol/L (98-107); GLUCOSE 221 mg/dL (75-110); POTASSIUM 4.9 mmol/L (3.6-5.0); SODIUM 139.7 mmol/L (137-145)
[2018-05-16] MEDS: GABAPENTIN 400 MG CAPSULE PO SCH ×3 (05:20→21:39)
[2018-05-16] MEDS: METHYLPREDNISOLONE INJ 125 MG/2 ML SDV IV SCH ×3 (05:20→21:39)
[2018-05-16] MEDS: INSULIN LISPRO 100 UNIT/ML 3 ML VIAL SUBCUT SCH ×7 (08:03→21:45)
[2018-05-16] MEDS: MULTIVITAMIN TABLET PO SCH (10:08)
[2018-05-16] MEDS: ASPIRIN 81 MG TABLET, ENT COATED PO SCH (10:08)
[2018-05-16] MEDS: DULOXETINE HCL 30 MG CAPSULE.DR PO SCH ×2 (10:08→21:39)
[2018-05-16] MEDS: METOPROLOL SUCCINATE 50 MG TAB.SR.24H PO SCH (10:08)
[2018-05-16] MEDS: FLUTICASONE/UMECLIDIN/VILANTER 100-62.5-25 MCG/DOSE IH SCH (10:08)
[2018-05-16] MEDS: POLYETHYLENE GLYCOL 3350 POWDER 17 GM/1 PACKET PO SCH (10:08)
[2018-05-16] MEDS: SITAGLIPTIN PHOSPHATE 50 MG TABLET PO SCH (10:08)
[2018-05-16] MEDS: INSULIN DETEMIR 100 UNIT/ML 3 ML PEN SUBCUT SCH (18:00)
--- NOTE | 2018-05-16 20:48 | PDOC PROGRESS REPORT ---
Subjective Progress Note for:: 05/16/18 Subjective:: Patient is seen at the bedside Reason For Visit: COPD EXACERBATION Physical Exam Vital Signs: Temp Pulse Resp BP Pulse Ox 98.2 F 66 18 112/86 H 100 05/16/18 19:32 05/16/18 19:32 05/16/18 19:32 05/16/18 19:32 05/16/18 19:32 Intake & Output 05/15/18 05/16/18 05/17/18 06:59 06:59 06:59 Intake Total 1596 680 450 Output Total 0400 3982 0[address] [facility]759 [phone] Weight 112.8 kg 112.3 kg General appearance: PRESENT: no acute distress Eye exam: PRESENT: PERRLA Respiratory exam: PRESENT: wheezes Cardiovascular exam: PRESENT: +S1, +S2 GI/Abdominal exam: PRESENT: soft Neurological exam: PRESENT: alert Results Laboratory Results: 05/16/18 04:20 05/16/18 04:20 05/16/18 05/16/18 04:20 04:20 WBC 8.2 RBC 3.83 Hgb 12.0 Hct 35.3 L MCV 92 MCH 31.3 MCHC 33.9 RDW 16.3 H Plt Count 188 Seg Neutrophils % 86.9 H Lymphocytes % 9.4 L Monocytes % 3.5 Eosinophils % 0.0 Basophils % 0.2 Absolute Neutrophils 7.1 Absolute Lymphocytes 0.8 Absolute Monocytes 0.3 Absolute Eosinophils 0.0 Absolute Basophils 0.0 Sodium 139.7 Potassium 4.9 Chloride 104 Carbon Dioxide 28 Anion Gap 8 BUN 29 H Creatinine 0.89 Est GFR ( Amer) > 60 Est GFR (Non-Af Amer) > 60 Glucose 221 H Calcium 9.1 05/11/18 14:02 Blood Blood Culture - Final NO GROWTH IN 5 DAYS 05/11/18 13:25 Blood Blood Culture - Final NO GROWTH IN 5 DAYS 05/11/18 05/11/18 13:25 13:25 Creatine Kinase < 20 L CK-MB (CK-2) < 0.22 Troponin I < 0.012 Impressions: Chest X-Ray 05/11/18 13:06 IMPRESSION: No evidence of acute cardiopulmonary process. Assessment & Plan - Diagnosis (1) COPD with acute exacerbation Is this a current diagnosis for this admission?: Yes Plan: continue trestment (2) Chronic respiratory failure Qualifiers: Respiratory failure complication: hypoxia Qualified Code(s): J96.11 - Chronic respiratory failure with hypoxia Is this a current diagnosis for this admission?: Yes (3) Hypertension Qualifiers: Hypertension type: essential hypertension Qualified Code(s): I10 - Essential (primary) hypertension Is this a current diagnosis for this admission?: Yes (4) Type 2 diabetes mellitus with complication Qualifiers: Diabetes mellitus alf insulin use: with termite technician use Qualified Code(s): E11.8 - Type 2 diabetes mellitus with unspecified complications Is this a current diagnosis for this admission?: Yes
[2018-05-17] MEDS: GABAPENTIN 400 MG CAPSULE PO SCH ×3 (05:32→22:36)
[2018-05-17] MEDS: METHYLPREDNISOLONE INJ 125 MG/2 ML SDV IV SCH ×2 (05:32→14:26)
[2018-05-17 05:46] LABS: ANION GAP 6 (5-19); BLOOD UREA NITROGEN 30 mg/dL (7-20); CALCIUM 9.1 mg/dL (8.4-10.2); CARBON DIOXIDE 33 mmol/L (22-30); CHLORIDE 103 mmol/L (98-107); GLUCOSE 141 mg/dL (75-110); POTASSIUM 4.6 mmol/L (3.6-5.0); SODIUM 141.5 mmol/L (137-145)
[2018-05-17] MEDS: INSULIN LISPRO 100 UNIT/ML 3 ML VIAL SUBCUT SCH ×7 (09:43→22:35)
[2018-05-17] MEDS: METOPROLOL SUCCINATE 50 MG TAB.SR.24H PO SCH (09:51)
[2018-05-17] MEDS: ASPIRIN 81 MG TABLET, ENT COATED PO SCH (09:51)
[2018-05-17] MEDS: SITAGLIPTIN PHOSPHATE 50 MG TABLET PO SCH (09:51)
[2018-05-17] MEDS: MULTIVITAMIN TABLET PO SCH (09:51)
[2018-05-17] MEDS: DULOXETINE HCL 30 MG CAPSULE.DR PO SCH ×2 (09:51→22:36)
[2018-05-17] MEDS: POLYETHYLENE GLYCOL 3350 POWDER 17 GM/1 PACKET PO SCH (09:51)
[2018-05-17] MEDS: FLUTICASONE/UMECLIDIN/VILANTER 100-62.5-25 MCG/DOSE IH SCH (09:52)
[2018-05-17] MEDS: INSULIN DETEMIR 100 UNIT/ML 3 ML PEN SUBCUT SCH (18:16)
--- NOTE | 2018-05-17 19:13 | PDOC PROGRESS REPORT ---
Subjective Progress Note for:: 05/17/18 Subjective:: Patient is seen by the bedside Reason For Visit: COPD EXACERBATION Physical Exam Vital Signs: Temp Pulse Resp BP Pulse Ox 97.9 F 63 16 136/67 H 99 05/17/18 15:20 05/17/18 15:20 05/17/18 15:20 05/17/18 15:20 05/17/18 15:20 Intake & Output 05/16/18 05/17/18 05/18/18 06:59 06:59 06:59 Intake Total 680 450 Output Total 2700 75214 1375 Balance -2019 -22149 -1375 Weight 112.3 kg 110.7 kg General appearance: PRESENT: no acute distress Eye exam: PRESENT: PERRLA Respiratory exam: PRESENT: rhonchi Cardiovascular exam: PRESENT: +S1, +S2 GI/Abdominal exam: PRESENT: soft Neurological exam: PRESENT: alert Results Laboratory Results: 05/16/18 04:20 05/17/18 04:08 05/17/18 04:08 Sodium 141.5 Potassium 4.6 Chloride 103 Carbon Dioxide 33 H Anion Gap 6 BUN 30 H Creatinine 0.92 Est GFR ( Amer) > 60 Est GFR (Non-Af Amer) > 60 Glucose 141 H Calcium 9.1 05/11/18 14:02 Blood Blood Culture - Final NO GROWTH IN 5 DAYS 05/11/18 05/11/18 13:25 13:25 Creatine Kinase < 20 L CK-MB (CK-2) < 0.22 Troponin I < 0.012 Impressions: Chest X-Ray 05/11/18 13:06 IMPRESSION: No evidence of acute cardiopulmonary process. Assessment & Plan - Diagnosis (1) COPD with acute exacerbation Is this a current diagnosis for this admission?: Yes Plan: Discontinue solumedrol,start prednisone 40mg POQD (2) Chronic respiratory failure Qualifiers: Respiratory failure complication: hypoxia Qualified Code(s): J96.11 - Chronic respiratory failure with hypoxia Is this a current diagnosis for this admission?: Yes (3) Hypertension Qualifiers: Hypertension type: essential hypertension Qualified Code(s): I10 - Essential (primary) hypertension Is this a current diagnosis for this admission?: Yes (4) Type 2 diabetes mellitus with complication Qualifiers: Diabetes mellitus skilled nursing insulin use: with local 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
[2018-05-17] MEDS: PREDNISONE 20 MG TABLET PO SCH (20:03)
[2018-05-18] MEDS: GABAPENTIN 400 MG CAPSULE PO SCH ×3 (05:19→22:19)
[2018-05-18] MEDS: INSULIN LISPRO 100 UNIT/ML 3 ML VIAL SUBCUT SCH ×7 (08:44→22:20)
[2018-05-18] MEDS: FLUTICASONE/UMECLIDIN/VILANTER 100-62.5-25 MCG/DOSE IH SCH (09:39)
[2018-05-18] MEDS: POLYETHYLENE GLYCOL 3350 POWDER 17 GM/1 PACKET PO SCH (09:40)
[2018-05-18] MEDS: METOPROLOL SUCCINATE 50 MG TAB.SR.24H PO SCH (09:41)
[2018-05-18] MEDS: PREDNISONE 20 MG TABLET PO SCH (09:41)
[2018-05-18] MEDS: ASPIRIN 81 MG TABLET, ENT COATED PO SCH (09:42)
[2018-05-18] MEDS: MULTIVITAMIN TABLET PO SCH (09:42)
[2018-05-18] MEDS: DULOXETINE HCL 30 MG CAPSULE.DR PO SCH ×2 (09:42→22:19)
[2018-05-18] MEDS: SITAGLIPTIN PHOSPHATE 50 MG TABLET PO SCH (09:42)
[2018-05-18] MEDS: INSULIN DETEMIR 100 UNIT/ML 3 ML PEN SUBCUT SCH (17:10)
--- NOTE | 2018-05-18 20:19 | PDOC PROGRESS REPORT ---
Subjective Progress Note for:: 05/18/18 Subjective:: Patient was seen by the bedside, she is audibly wheezing today the plan was for her to go home today but we will hold off on discharge plans today because of the audible wheeze will reevaluate tomorrow and determine if she is stable for discharge Reason For Visit: COPD EXACERBATION Physical Exam Vital Signs: Temp Pulse Resp BP Pulse Ox 97.9 F 57 L 16 120/47 L 96 05/18/18 15:23 05/18/18 15:23 05/18/18 15:23 05/18/18 15:23 05/18/18 15:23 Intake & Output 05/17/18 05/18/18 05/19/18 06:59 06:59 06:59 Intake Total 450 476 337 Output Total 29533 2675 1000 [facility] [place] [phone] Weight 110.7 kg 109.6 kg General appearance: PRESENT: no acute distress Eye exam: PRESENT: PERRLA Respiratory exam: PRESENT: wheezes Cardiovascular exam: PRESENT: +S1, +S2 GI/Abdominal exam: PRESENT: soft Neurological exam: PRESENT: alert Results Laboratory Results: 05/16/18 04:20 05/17/18 04:08 05/11/18 05/11/18 13:25 13:25 Creatine Kinase < 20 L CK-MB (CK-2) < 0.22 Troponin I < 0.012 Impressions: Chest X-Ray 05/11/18 13:06 IMPRESSION: No evidence of acute cardiopulmonary process. Assessment & Plan - Diagnosis (1) COPD with acute exacerbation Is this a current diagnosis for this admission?: Yes (2) Chronic respiratory failure Qualifiers: Respiratory failure complication: hypoxia Qualified Code(s): J96.11 - Chronic respiratory failure with hypoxia Is this a current diagnosis for this admission?: Yes (3) Hypertension Qualifiers: Hypertension type: essential hypertension Qualified Code(s): I10 - Essential (primary) hypertension Is this a current diagnosis for this admission?: Yes (4) Type 2 diabetes mellitus with complication Qualifiers: Diabetes mellitus terminal press operator insulin use: with nursing home use Qualified Code(s): E11.8 - Type 2 diabetes mellitus with unspecified complications Is this a current diagnosis for this admission?: Yes
[2018-05-19] MEDS: GABAPENTIN 400 MG CAPSULE PO SCH ×3 (05:19→21:45)
[2018-05-19] MEDS: INSULIN LISPRO 100 UNIT/ML 3 ML VIAL SUBCUT SCH ×7 (08:25→21:46)
[2018-05-19] MEDS: POLYETHYLENE GLYCOL 3350 POWDER 17 GM/1 PACKET PO SCH (10:34)
[2018-05-19] MEDS: MULTIVITAMIN TABLET PO SCH (10:35)
[2018-05-19] MEDS: PREDNISONE 20 MG TABLET PO SCH (10:35)
[2018-05-19] MEDS: ASPIRIN 81 MG TABLET, ENT COATED PO SCH (10:35)
[2018-05-19] MEDS: DULOXETINE HCL 30 MG CAPSULE.DR PO SCH ×2 (10:35→21:45)
[2018-05-19] MEDS: METOPROLOL SUCCINATE 50 MG TAB.SR.24H PO SCH (10:35)
[2018-05-19] MEDS: FLUTICASONE/UMECLIDIN/VILANTER 100-62.5-25 MCG/DOSE IH SCH (10:36)
[2018-05-19] MEDS: SITAGLIPTIN PHOSPHATE 50 MG TABLET PO SCH (10:36)
[2018-05-19] MEDS: INSULIN DETEMIR 100 UNIT/ML 3 ML PEN SUBCUT SCH (17:07)
--- NOTE | 2018-05-19 21:18 | PDOC DISCHARGE SUMMARY ---
General - Admit/Disc Date/PCP Admission Date/Primary Care Provider: 05/13/18 13:57 TOÑA MCLEAN MD Discharge Date: 05/19/18 - Discharge Diagnosis (1) COPD with acute exacerbation Is this a current diagnosis for this admission?: Yes (2) Acute hypercapnic respiratory failure Is this a current diagnosis for this admission?: Yes (3) Chronic respiratory failure Is this a current diagnosis for this admission?: Yes (4) Hypertension Is this a current diagnosis for this admission?: Yes (5) Type 2 diabetes mellitus with complication Is this a current diagnosis for this admission?: Yes - Additional Information Prescriptions: Prednisone [Deltasone 20 mg Tablet] 40 mg PO DAILY #5 tablet Home Medications: Acetaminophen [Tylenol 325 mg Tablet] 650 mg PO Q4HP PRN 05/11/18 Albuterol Sulfate [Proair HFA Inhalation Aerosol 8.5 gm MDI] 1 puff IH Q4HP PRN 05/11/18 Aspirin [Ecotrin 81 mg EC Tablet] 81 mg PO DAILY 05/11/18 Canagliflozin [Invokana] 300 mg PO DAILY 05/11/18 Duloxetine HCl [Cymbalta] 60 mg PO Q12 05/11/18 Fluticasone/Umeclidin/Vilanter [Trelegy 100-62.5-25 Mcg Ellipta 14 Dose/Dpi] 1 each IH DAILY 05/11/18 Gabapentin [Neurontin] 1,200 mg PO Q8 05/11/18 Insulin Aspart [Novolog Flexpen] 10 unit SUBCUT MEALS 05/11/18 Insulin Detemir [Levemir Insulin 100 units/mL] 55 unit SUBCUT QPM 05/11/18 Linagliptin [Tradjenta] 5 mg PO DAILY 05/11/18 Metoprolol Succinate [Toprol XL 100 mg Tablet] 100 mg PO DAILY 05/11/18 Multivitamin [Multiple Vitamins] 1 each PO DAILY 05/11/18 Aspirin [Ecotrin 81 mg EC Tablet] 81 mg PO DAILY tabec 05/19/18 Prednisone [Deltasone 20 mg Tablet] 40 mg PO DAILY #5 tablet 05/19/18 History of Present Illness History of Present Illness: DARCY NAVA is a 72 year old female, patient is well-known to me she has very severe chronic obstructive lung disease, chronic respiratory failure on home oxygen, she was just discharged from this hospital on 04/13/2018 she apparently came to the emergency room for evaluation of shortness of breath, in the emergency room she was treated, she was found to be tachypneic, the oxygen saturation on 3 L was 95% though she has increased work of breathing, breathing was supported with noninvasive positive pressure ventilation, BiPAP, it was felt that patient needed to be admitted to the hospital. Hospital Course Hospital Course: She has very severe COPD with chronic respiratory failure on home oxygen she was admitted when she presented with acute hypercapnic respiratory failure requiring noninvasive positive pressure ventilation, BiPAP. She was treated with intravenous Solu-Medrol, bronchodilators with very good result, history of recurrent hospital admission due to mostly acute COPD exacerbation Physical Exam Vital Signs: Temp Pulse Resp BP Pulse Ox 98.5 F 67 16 125/69 95 05/19/18 19:22 05/19/18 19:22 05/19/18 19:22 05/19/18 19:22 05/19/18 19:22 Intake & Output 05/18/18 05/19/18 05/20/18 06:59 06:59 06:59 Intake Total 476 337 910 Output Total 2675 2950 1100 Balance -2199 -2613 -190 Weight 109.6 kg 112.1 kg General appearance: PRESENT: no acute distress Head exam: PRESENT: atraumatic, normocephalic Eye exam: PRESENT: conjunctiva pink, EOMI, PERRLA Ear exam: PRESENT: normal external ear exam Neck exam: PRESENT: full ROM Respiratory exam: PRESENT: clear to auscultation [place] Cardiovascular exam: PRESENT: RRR, +S1, +S2 Pulses: PRESENT: normal dorsalis pedis pul, +2 pedal pulses bilateral Vascular exam: PRESENT: normal capillary refill GI/Abdominal exam: PRESENT: normal bowel sounds, soft Rectal exam: PRESENT: deferred Neurological exam: PRESENT: alert, awake, oriented to person, oriented to place, oriented to time, oriented to situation, CN II-XII grossly intact Psychiatric exam: PRESENT: appropriate affect, normal mood Skin exam: PRESENT: dry, intact, warm Results Laboratory Results: 05/16/18 04:20 05/17/18 04:08 05/11/18 05/11/18 13:25 13:25 Creatine Kinase < 20 L CK-MB (CK-2) < 0.22 Troponin I < 0.012 Impressions: Chest X-Ray 05/11/18 13:06 IMPRESSION: No evidence of acute cardiopulmonary process. Qualifiers - * PATIENT BEING DISCHARGED WITH ANY OF THE FOLLOWING DIAGNOSIS: No
[2018-05-20] MEDS: GABAPENTIN 400 MG CAPSULE PO SCH (05:51)
[2018-05-20] MEDS: INSULIN LISPRO 100 UNIT/ML 3 ML VIAL SUBCUT SCH ×2 (08:39)
[2018-05-20] MEDS: SITAGLIPTIN PHOSPHATE 50 MG TABLET PO SCH (09:08)
[2018-05-20] MEDS: METOPROLOL SUCCINATE 50 MG TAB.SR.24H PO SCH (09:08)
[2018-05-20] MEDS: DULOXETINE HCL 30 MG CAPSULE.DR PO SCH (09:09)
[2018-05-20] MEDS: ASPIRIN 81 MG TABLET, ENT COATED PO SCH (09:09)
[2018-05-20] MEDS: POLYETHYLENE GLYCOL 3350 POWDER 17 GM/1 PACKET PO SCH (09:09)
[2018-05-20] MEDS: MULTIVITAMIN TABLET PO SCH (09:09)
[2018-05-20] MEDS: PREDNISONE 20 MG TABLET PO SCH (09:09)
[2018-05-20] MEDS: FLUTICASONE/UMECLIDIN/VILANTER 100-62.5-25 MCG/DOSE IH SCH (09:10)
[2018-05-20 09:29] VITALS: BP 158/82
== END 2018-05-20 10:00 | disposition home health service (06) | DRG 189 ==
LOC: ER 13:03 → EH 16:21 → INTOOBSV 16:21 → 3N 17:54 → OBSVTOIN 05-13 13:57
PROVIDERS: ADMIT Internal Medicine; ATTEND Internal Medicine
PROC: 5A09457 Assistance with Respiratory Ventilation, 24-96 Consecutive Hours, Continuous Positive Airway Pressure (ICD-10-PCS; principal; 2018-05-11)
DX: J96.22 Acute and chronic respiratory failure with hypercapnia (principal); J44.1 Chronic obstructive pulmonary disease with (acute) exacerbation; J96.11 Chronic respiratory failure with hypoxia; Z99.81 Dependence on supplemental oxygen; E11.9 Type 2 diabetes mellitus without complications; I10 Essential (primary) hypertension; Z86.718 Personal history of other venous thrombosis and embolism; F32.9 Major depressive disorder, single episode, unspecified; K44.9 Diaphragmatic hernia without obstruction or gangrene; Z90.49 Acquired absence of other specified parts of digestive tract; Z90.710 Acquired absence of both cervix and uterus; D64.9 Anemia, unspecified; Z87.891 Personal history of nicotine dependence; Z79.4 Long term (current) use of insulin; Z79.82 Long term (current) use of aspirin; Z79.51 Long term (current) use of inhaled steroids; Z88.8 Allergy status to other drugs, medicaments and biological substances; E66.9 Obesity, unspecified
CPT/HCPCS: 36415; 71045; 80048; 80053; 81001; 82550; 82553; 82803; 82962; 83605; 84484; 85025; 85610; 87040; 87086; 87088; 87186; 93005; 93010; 94640; 94660; 96374; 99285; G0378; J1815; J2405; J2930; J3490; J7512; J7620

== ENCOUNTER 2018-05-31 07:47 | Inpatient (IN) | payer MEDICARE, MEDICAID ==
[2018-05-31] MEDS ORDERED: METHYLPREDNISOLONE INJ 125 MG/2 ML SDV IV ONE (07:51)
[2018-05-31] MEDS ORDERED: ALBUTEROL SULFATE 0.083% NEB 2.5 MG/3 ML AMPUL NEB ONE (07:51)
[2018-05-31] MEDS ORDERED: DEXTROSE 50%-WATER 25 GM/50 ML DISP.SYRIN IV ONE ×2 (07:57)
[2018-05-31 08:24] LABS: VENOUS BLOOD BASE EXCESS 3.9 mmol/L; VENOUS BLOOD HCO3 32.6 mmol/L (20-32); VENOUS BLOOD PH 7.3 (7.30-7.42)
[2018-05-31 08:27] LABS: ABSOLUTE BASOPHILS # (AUTO) 0.1 10^3/uL (0.0-0.2); ABSOLUTE EOSINOPHILS # (AUTO) 0.8 10^3/uL (0.0-0.6); ABSOLUTE MONOCYTES (AUTO) 0.8 10^3/uL (0.1-1.4); ABSOLUTE NEUT (AUTO) 10.4 10^3/uL (1.7-8.2); BASOPHILS % (AUTO) 0.7 % (0-2); EOSINOPHILS % (AUTO) 5.2 % (0-6); HEMATOCRIT 37.3 % (36.0-47.0); HEMOGLOBIN 12.5 g/dL (12.0-15.5); LYMPHOCYTES % (AUTO) 19.8 % (13-45); MEAN CORPUSCULAR HEMOGLOBIN 31.2 pg (27.0-33.4); MEAN CORPUSCULAR HGB CONC 33.6 g/dL (32.0-36.0); MEAN CORPUSCULAR VOLUME 93 fl (80-97); MONOCYTES % (AUTO) 5.2 % (3-13); PLATELET COUNT 362 10^3/uL (150-450); RED BLOOD COUNT 4.01 10^6/uL (3.72-5.28); RED CELL DISTRIBUTION WIDTH 16.5 % (11.5-14.0); SEGMENTED NEUTROPHILS % (AUTO) 69.1 % (42-78); TOTAL CELLS COUNTED % (AUTO) 100 %; WHITE BLOOD COUNT 15.1 10^3/uL (4.0-10.5)
[2018-05-31 08:39] LABS: ALANINE AMINOTRANSFERASE 34 U/L (9-52); ALBUMIN 3.7 g/dL (3.5-5.0); ALKALINE PHOSPHATASE 88 U/L (38-126); ANION GAP 11 (5-19); ASPARTATE AMINO TRANSFERASE 22 U/L (14-36); BILIRUBIN,DIRECT 0.4 mg/dL (0.0-0.4); BILIRUBIN,TOTAL 0.8 mg/dL (0.2-1.3); BLOOD UREA NITROGEN 17 mg/dL (7-20); CALCIUM 9.8 mg/dL (8.4-10.2); CARBON DIOXIDE 30 mmol/L (22-30); CHLORIDE 99 mmol/L (98-107); POTASSIUM 3.6 mmol/L (3.6-5.0); SODIUM 139.5 mmol/L (137-145)
[2018-05-31 08:41] LABS: CREATINE KINASE < 20 U/L (30-135); GLUCOSE 50 mg/dL (75-110); VENOUS BLOOD PCO2 68.3 mmHg (35-63)
[2018-05-31 08:47] LABS: CREATINE KINASE MB 0.36 ng/mL (<4.55)
[2018-05-31 08:49] LABS: APPEARANCE,URINE CLEAR; BILIRUBIN,URINE NEGATIVE (NEGATIVE); COLOR,URINE YELLOW; GLUCOSE, URINE >=500 mg/dL (NEGATIVE); KETONES,URINE NEGATIVE (NEGATIVE); LEUKOCYTE ESTERASE,URINE NEGATIVE (NEGATIVE); NITRITE,URINE NEGATIVE (NEGATIVE); PROTEIN,URINE NEGATIVE (NEGATIVE); UROBILINOGEN,URINE NEGATIVE mg/dL (<2.0)
[2018-05-31 08:50] LABS: INTERNATIONAL RATION (INR) 0.93; PROTHROMBIN TIME 12.9 SEC (11.4-15.4)
--- NOTE | 2018-05-31 09:06 | RADIOLOGY REPORT (SQ) ---
EXAM DESCRIPTION: CHEST SINGLE VIEW COMPLETED DATE/TIME: 05/31/2018 8:55 am REASON FOR STUDY: SOB, COPD, hypoxic COMPARISON: 05/11/2018 EXAM PARAMETERS: NUMBER OF VIEWS: One view. TECHNIQUE: Single frontal radiographic view of the chest acquired. RADIATION DOSE: NA LIMITATIONS: None. FINDINGS: LUNGS AND PLEURA: No opacities, masses or pneumothorax. No pleural effusion. MEDIASTINUM AND HILAR STRUCTURES: No masses. Contour normal. HEART AND VASCULAR STRUCTURES: Heart normal in size. Normal vasculature. BONES: No acute findings. HARDWARE: None in the chest. OTHER: No other significant finding. IMPRESSION: No acute abnormality of the lungs. TECHNICAL DOCUMENTATION: JOB ID: [id number] [employer]- All Rights Reserved Reading location - IP/workstation name: [email or web address]
--- NOTE | 2018-05-31 09:16 | ER Document Report ---
Entered by JACKY CHAUDHARY SCRIBE 05/31/18 0802 Acting as scribe for:RHONDA WATSON DO ED Respiratory Problem - General Stated Complaint: DIFFICULTY BREATHING Time Seen by Provider: 05/31/18 07:50 Mode of Arrival: Medic Information source: Patient, Emergency Med Personnel Notes: Patient is a 72 year old female with COPD and diabetes presents to the emergency department via EMS due to difficulty breathing. EMS states the patient began to have difficulty breathing onset last night which progressively worsened. Patient reports having difficulty breathing for several months and further complains of pain all over. She denies any chest pain or steroid use. Upon arrival to the scene, EMS reports an oxygen saturation rate of 70% and they proceeded to place the patient on CPAP which brought her to 90%. They proceeded to administer 3 A&A treatments and 0.25 mg of Terbutaline. EMS reports the patient being on 4L of oxygen at home. Her PCP is Dr. Lizarraga. TRAVEL OUTSIDE OF THE [place] IN LAST 30 DAYS: No - Related Data Allergies/Adverse Reactions: propoxyphene [From Darvocet-N] Allergy (Verified 03/31/18 14:12) Delirium tapentadol [From Nucynta] Allergy (Verified 03/31/18 14:12) Delirium Past Medical History - General Information source: Patient, Emergency Med Personnel - Social History Smoking Status: Unknown if Ever Smoked Family History: Reviewed & Not Pertinent, COPD, DM, Malignancy - Brother with throat cancer, Other - Father with tuberculosis - Past Medical History Cardiac Medical History: Reports: Hx DVT, Hx Hypertension - ON MEDS Pulmonary Medical History: Reports: Hx Bronchitis, Hx COPD - USES NEB AND INHALER, Hx Pneumonia - 2 YRS AGO Endocrine Medical History: Reports: Hx Diabetes Mellitus Type 2 Renal/ Medical History: Reports: Hx End Stage Renal Disease - Stage 3- NO DIALYSIS Malignancy Medical History: Reports: Hx Ovarian Cancer - PRE-CANCEROUS, TOTAL HYST, QUINN SALPINGOOPHORECTOMY GI Medical History: Reports: Hx Hiatal Hernia Musculoskeletal Medical History: Reports Hx Arthritis Psychiatric Medical History: Reports: Hx Depression Past Surgical History: Reports: Hx Abdominal Surgery, Hx Appendectomy, Hx Bowel Surgery - EX LAP, ILEOSTOMY, Hx Colostomy - History of colostomy revision , History of resection of the colon, Hx Hysterectomy, Hx Kidney (Renal Surgery) - Right kidney, Hx Orthopedic Surgery - left shoulder, Other - Recent history of extended right hemicolectomy with end ileostomy bag, rvsd - Immunizations Immunizations up to date: Yes Hx Diphtheria, Pertussis, Tetanus Vaccination: Yes Hx Pneumococcal Vaccination: 05/27/13 Review of Systems - Review of Systems Constitutional: No symptoms reported EENT: No symptoms reported Cardiovascular: No symptoms reported Respiratory: See HPI Gastrointestinal: No symptoms reported Genitourinary: No symptoms reported Female Genitourinary: No symptoms reported Musculoskeletal: See HPI Skin: No symptoms reported Hematologic/Lymphatic: No symptoms reported Neurological/Psychological: No symptoms reported -: Yes All other systems reviewed and negative Physical Exam - Vital signs Vitals: Resp BP Pulse Ox 24 H 115/88 H 96 05/31/18 07:57 05/31/18 07:57 05/31/18 07:57 - Notes Notes: GENERAL: Alert, on BiPAP, able to follow instructions. Moderate respiratory distress. HEAD: Normocephalic, atraumatic. EYES: Pupils equal, round, and reactive to light. Extraocular movements intact. ENT: Oral mucosa moist, tongue midline. NECK: Full range of motion. Supple. Trachea midline. [place] hump. LUNGS: Moderate respiratory distress. Tachypneic. Moderate air movement. Inspiratory and expiratory wheezing. HEART: Mildly tachycardic, regular rhythm. No murmurs, gallops, or rubs. ABDOMEN: Soft, overweight, non-tender, no guarding, rigidity or rebounding. Non- distended. Bowel sounds present in all 4 quadrants. EXTREMITIES: Moves all 4 extremities spontaneously. I&O right humeral head. No peripheral edema, radial and dorsalis pedis pulses 2/4 bilaterally. No cyanosis. NEUROLOGICAL: Alert and oriented x3. Normal speech. PSYCH: Normal affect, normal mood. SKIN: Warm, dry, normal turgor. No rashes or lesions noted. Course - Re-evaluation Re-evalutation: 05/31/18 07:57 Patient is currently oxygenating well now that she has been put on BiPAP is 12/, 30. Accu-check is 56. Patient will be given dextrose. 05/31/18 09:12 Patient brought in by EMS, in moderate to severe respiratory distress, improved significantly when transition from CPAP to BiPAP, currently stable on BiPAP 12/6 with 30% O2, much more alert, she was mildly hypoglycemic on arrival, given an amp of D50 through her IO, she is even more alert now. Given several breathing treatments as well as steroids. CBC shows leukocytosis at 15.1, coags normal, venous blood gas shows respiratory acidosis with pH of 7.3 and a PCO2 of 68.3. CMP grossly unremarkable with the exception of hypoglycemia, 05/31/18 09:12 EKG is nonischemic. Discussed with Dr. Lizarraga who agrees to admit to his service on the telemetry care unit. 05/31/18 09:13 - Vital Signs Vital signs: Temp Pulse Resp BP Pulse Ox 99.1 F 21 H 104/89 H 95 05/31/18 11:01 05/31/18 11:01 05/31/18 11:01 05/31/18 11:01 - Laboratory Result Diagrams: 05/31/18 07:45 05/31/18 07:45 Laboratory results interpreted by me: 05/31/18 05/31/18 05/31/18 07:45 07:45 07:45 WBC 15.1 H RDW 16.5 H Absolute Neutrophils 10.4 H Absolute Eosinophils 0.8 H VBG pCO2 68.3 H* VBG HCO3 32.6 H Glucose 50 L Creatine Kinase < 20 L Urine Glucose (UA) Urine Ascorbic Acid 05/31/18 08:15 WBC RDW Absolute Neutrophils Absolute Eosinophils VBG pCO2 VBG HCO3 Glucose Creatine Kinase Urine Glucose (UA) >=500 H Urine Ascorbic Acid 20 H - EKG Interpretation by Me Additional EKG results interpreted by me: 05/31/18 09:13 EKG shows sinus rhythm at a rate of 76, left axis deviation, interventricular conduction delay, rapid R wave progression, no ST segment elevations or depressions, no T wave inversions per my interpretation. Critical Care Note - Critical Care Note Total time excluding time spent on procedures (mins): 45 Discharge - Discharge Clinical Impression: Acute hypoxemic respiratory failure, Acute exacerbation of chronic obstructive pulmonary disease (COPD), Acute hypercapnic respiratory failure, Hypoglycemia, Acute respiratory acidosis, Diabetes mellitus type 2 in obese Type 2 diabetes mellitus with complication Qualifiers: Diabetes mellitus buttermaker continuous churn insulin use: with buttermaker continuous churn use Qualified Code(s): E11.8 - Type 2 diabetes mellitus with unspecified complications; Z79.4 - group home (current) use of insulin Type 2 diabetes mellitus Qualifiers: Diabetes mellitus buttermaker continuous churn insulin use: with intermediate use Diabetes mellitus complication status: with hypoglycemia Diabetes mellitus complication detail: without coma Qualified Code(s): E11.649 - Type 2 diabetes mellitus with hypoglycemia without coma; Z79.4 - termite helper (current) use of insulin Condition: Fair Disposition: ADMITTED INPATIENT Admitting Provider: [facility] Admitted: Telemetry I personally performed the services described in the documentation, reviewed and edited the documentation which was dictated to the scribe in my presence, and it accurately records my words and actions.
[2018-05-31] MEDS ORDERED: IPRATROPIUM/ALBUTEROL 0.5-2.5 MG/3 ML AMPUL NEB PRN (16:03)
[2018-05-31] MEDS ORDERED: ALBUTEROL SULFATE HFA (90 MCG/PUFF) 200 PUFF/8.5 GM MDI IH PRN (16:25)
[2018-05-31] MEDS ORDERED: DEXTROSE 50%-WATER SYRINGE 25 GM/50 ML DOSE IV PRN (16:30)
[2018-05-31] MEDS ORDERED: DEXTROSE 40% GEL 15 GM TUBE PO PRN (16:30)
[2018-05-31] MEDS ORDERED: DEXTROSE 50%-WATER SYRINGE 12.5 GM/25 ML DOSE IV PRN (16:30)
[2018-05-31] MEDS ORDERED: DEXTROSE 40% GEL 15 GM TUBE X 2 PO PRN (16:30)
[2018-05-31] MEDS ORDERED: GLUCAGON,HUMAN RECOMB 1 MG INJ IM PRN (16:30)
--- NOTE | 2018-05-31 17:11 | EKG REPORT ---
SEVERITY:- ABNORMAL ECG - SINUS RHYTHM BORDERLINE LEFT AXIS DEVIATION BORDERLINE PROLONGED QT INTERVAL : Confirmed by: Felipe Glez 31-May-2018 17:10:45
[2018-05-31] MEDS: INSULIN LISPRO 100 UNIT/ML 3 ML VIAL SUBCUT SCH ×2 (18:41→22:38)
[2018-05-31] MEDS ORDERED: INSULIN LISPRO 100 UNIT/ML 3 ML VIAL SUBCUT SCH (22:00)
[2018-05-31] MEDS: GABAPENTIN 400 MG CAPSULE PO SCH (22:38)
[2018-05-31] MEDS: DULOXETINE HCL 30 MG CAPSULE.DR PO SCH (22:38)
[2018-06-01] MEDS: GABAPENTIN 400 MG CAPSULE PO SCH ×3 (05:50→22:41)
[2018-06-01] MEDS ORDERED: (PENDING PHARMACY ID) (Linagliptin [Tradjenta] 5 MG) PO SCH (10:00)
[2018-06-01] MEDS ORDERED: (PENDING PHARMACY ID) (Canagliflozin [Invokana] 300 MG) PO SCH (10:00)
[2018-06-01] MEDS ORDERED: (PENDING PHARMACY ID) (Valsartan/Hydrochlorothiazide [Valsartan-Hctz 160-25 Mg Tab] 1 EACH PO SCH (10:00)
[2018-06-01] MEDS: INSULIN LISPRO 100 UNIT/ML 3 ML VIAL SUBCUT SCH ×4 (11:07→22:40)
[2018-06-01] MEDS: HYDROCHLOROTHIAZIDE 25 MG TABLET PO SCH (11:17)
[2018-06-01] MEDS: MULTIVITAMIN TABLET PO SCH (11:17)
[2018-06-01] MEDS: SITAGLIPTIN PHOSPHATE 50 MG TABLET PO SCH (11:17)
[2018-06-01] MEDS: PREDNISONE 20 MG TABLET PO SCH (11:18)
[2018-06-01] MEDS: DULOXETINE HCL 30 MG CAPSULE.DR PO SCH ×2 (11:18→22:41)
[2018-06-01] MEDS: FLUTICASONE/UMECLIDIN/VILANTER 100-62.5-25 MCG/DOSE IH SCH (11:18)
[2018-06-01] MEDS: VALSARTAN 160 MG TABLET PO SCH (11:33)
[2018-06-01] MEDS: METOPROLOL SUCCINATE 50 MG TAB.SR.24H PO SCH (11:34)
--- NOTE | 2018-06-01 19:32 | PDOC H&P ---
History of Present Illness Admission Date/PCP: 05/31/18 09:31 TOÑA MCLEAN MD History of Present Illness: DARCY NAVA is a 72 year old female, She has chronic respiratory failure due to end-stage chronic obstructive pulmonary disease. She was just discharged from this hospital on 05/19/2018 when she was admitted for the management of acute COPD exacerbation with associated acute hypercapnic respiratory failure. I saw her in the office last week Wednesday for follow-up evaluation, she was prescribed prednisone and she was advised to see me this week on Wednesday in the office, she called rescue squad and she was transferred to the emergency room because of shortness of breath. She has chronic systolic failure on home oxygen.She has multiple hospitalization Past Medical History Cardiac Medical History: Reports: DVT, Hypertension - ON MEDS Pulmonary Medical History: Reports: Bronchitis, Chronic Obstructive Pulmonary Disease (COPD) - USES NEB AND INHALER, Pneumonia - 2 YRS AGO Endocrine Medical History: Reports: Diabetes Mellitus Type 2 GI Medical History: Reports: Hiatal Hernia Musculoskeltal Medical History: Reports: Arthritis Psychiatric Medical History: Reports: Depression Hematology: Reports: Anemia Past Surgical History Past Surgical History: Reports: Appendectomy, Colostomy - History of colostomy revision , History of resection of the colon, Hysterectomy, Orthopedic Surgery - left shoulder, Other - Recent history of extended right hemicolectomy with end ileostomy bag, rvsd Social History Smoking Status: Former Smoker Number of Years Smokin Last Time Smoked: 03/14/2012 Frequency of Alcohol Use: Occasional Hx Recreational Drug Use: No Drugs: None Hx Prescription Drug Abuse: No - Advance Directive Resuscitation Status: Full Code Family History Family History: Reviewed & Not Pertinent, COPD, DM, Malignancy - Brother with throat cancer, Other - Father with tuberculosis Parental Family History Reviewed: Yes Children Family History Reviewed: Yes Sibling(s) Family History Reviewed.: Yes Medication/Allergy Home Medications: Albuterol Sulfate [Proair HFA Inhalation Aerosol 8.5 gm MDI] 1 puff IH Q4HP PRN 05/11/18 Canagliflozin [Invokana] 300 mg PO DAILY 05/11/18 Duloxetine HCl [Cymbalta] 60 mg PO Q12 05/11/18 Gabapentin [Neurontin] 1,200 mg PO Q8 05/11/18 Insulin Aspart [Novolog Flexpen] 10 unit SUBCUT MEALS 05/11/18 Insulin Detemir [Levemir Insulin 100 units/mL] 55 unit SUBCUT QPM 05/11/18 Linagliptin [Tradjenta] 5 mg PO DAILY 05/11/18 Metoprolol Succinate [Toprol XL 100 mg Tablet] 100 mg PO DAILY 05/11/18 Multivitamin [Multiple Vitamins] 1 each PO DAILY 05/11/18 Prednisone [Deltasone 20 mg Tablet] 40 mg PO DAILY #5 tablet MDD filled 05/27/18 for 10daysupply 05/19/18 Fluticasone/Umeclidin/Vilanter [Trelegy 100-62.5-25 Mcg Ellipta 14 Dose/Dpi] 1 puff IH DAILY 05/31/18 Valsartan/Hydrochlorothiazide [Valsartan-Hctz 160-25 mg Tab] 1 each PO DAILY 05/31/18 Allergies/Adverse Reactions: propoxyphene [From Darvocet-N] Allergy (Verified 03/31/18 14:12) Delirium tapentadol [From Nucynta] Allergy (Verified 03/31/18 14:12) Delirium Review of Systems Constitutional: PRESENT: fatigue Eyes: ABSENT: visual disturbances Ears: ABSENT: hearing changes Cardiovascular: PRESENT: chest pain, orthropnea Respiratory: PRESENT: cough, dyspnea Gastrointestinal: ABSENT: abdominal pain, constipation, diarrhea, hematemesis, h ematochezia, nausea, vomiting Genitourinary: ABSENT: dysuria, hematuria Musculoskeletal: ABSENT: joint swelling Integumentary: ABSENT: rash, wounds Neurological: ABSENT: abnormal gait, abnormal speech, confusion, dizziness, focal weakness, syncope Psychiatric: ABSENT: anxiety, depression, homidical ideation, suicidal ideation Endocrine: ABSENT: cold intolerance, heat intolerance, menstrual abnormalities, polydipsia, polyuria Hematologic/Lymphatic: ABSENT: easy bleeding, easy bruising, lymphadenopathy Physical Exam Vital Signs: Temp Pulse Resp BP Pulse Ox 97.9 F 79 16 104/84 95 06/01/18 16:21 06/01/18 16:21 06/01/18 16:21 06/01/18 16:21 06/01/18 16:21 Intake & Output 05/31/18 06/01/18 06/02/18 06:59 06:59 06:59 Intake Total 520 Output Total 1250 Balance -730 Weight 111.5 kg 111.5 kg General appearance: PRESENT: mild distress Head exam: PRESENT: atraumatic, normocephalic Eye exam: PRESENT: PERRLA Ear exam: PRESENT: normal external ear exam Mouth exam: PRESENT: moist, tongue midline Neck exam: PRESENT: full ROM Respiratory exam: PRESENT: wheezes Cardiovascular exam: PRESENT: RRR, +S1, +S2 Vascular exam: PRESENT: normal capillary refill GI/Abdominal exam: PRESENT: normal bowel sounds, soft Rectal exam: PRESENT: deferred Neurological exam: PRESENT: alert, CN II-XII grossly intact Skin exam: PRESENT: dry, intact, warm Results Laboratory Results: 05/31/18 07:45 05/31/18 07:45 05/31/18 05/31/18 05/31/18 07:45 07:45 07:45 Creatine Kinase < 20 L CK-MB (CK-2) 0.36 Troponin I < 0.012 NT-Pro-B Natriuret Pep 423 Impressions: Chest X-Ray 05/31/18 08:44 IMPRESSION: No acute abnormality of the lungs. Assessment & Plan - Diagnosis (1) Acute hypercapnic respiratory failure Is this a current diagnosis for this admission?: Yes Plan: Patient not presently requiring noninvasive positive pressure ventilation with BiPAP she is on oxygen via nasal cannula (2) COPD with acute exacerbation Is this a current diagnosis for this admission?: Yes Plan: Continue present treatment (3) Chronic respiratory failure Qualifiers: Respiratory failure complication: hypoxia and hypercapnia Qualified Code(s): J96.11 - Chronic respiratory failure with hypoxia; J96.12 - Chronic respiratory failure with hypercapnia Is this a current diagnosis for this admission?: Yes
--- NOTE | 2018-06-01 19:46 | PDOC PROGRESS REPORT ---
Subjective Progress Note for:: 06/01/18 Subjective:: Patient was seen by the bedside Reason For Visit: ACUTE HYPOXEMIC RESPIRATORY FAILURE,COPD Physical Exam Vital Signs: Temp Pulse Resp BP Pulse Ox 97.9 F 79 16 104/84 95 06/01/18 16:21 06/01/18 16:21 06/01/18 16:21 06/01/18 16:21 06/01/18 16:21 Intake & Output 05/31/18 06/01/18 06/02/18 06:59 06:59 06:59 Intake Total 520 600 Output Total 1250 1000 Balance -730 -400 Weight 111.5 kg 111.5 kg General appearance: PRESENT: no acute distress Respiratory exam: PRESENT: wheezes Cardiovascular exam: PRESENT: +S1, +S2 GI/Abdominal exam: PRESENT: soft Neurological exam: PRESENT: alert Results Laboratory Results: 05/31/18 07:45 05/31/18 07:45 05/31/18 05/31/18 05/31/18 07:45 07:45 07:45 Creatine Kinase < 20 L CK-MB (CK-2) 0.36 Troponin I < 0.012 NT-Pro-B Natriuret Pep 423 Impressions: Chest X-Ray 05/31/18 08:44 IMPRESSION: No acute abnormality of the lungs. Assessment & Plan - Diagnosis (1) Acute hypercapnic respiratory failure Is this a current diagnosis for this admission?: Yes (2) COPD with acute exacerbation Is this a current diagnosis for this admission?: Yes Plan: Continue present treatment (3) Chronic respiratory failure Qualifiers: Respiratory failure complication: hypoxia and hypercapnia Qualified Code(s): J96.11 - Chronic respiratory failure with hypoxia; J96.12 - Chronic respiratory failure with hypercapnia Is this a current diagnosis for this admission?: Yes
[2018-06-02] MEDS: GABAPENTIN 400 MG CAPSULE PO SCH ×3 (05:48→21:19)
[2018-06-02] MEDS ORDERED: ENOXAPARIN SODIUM INJ 40 MG/0.4 ML DISP.SYRIN SUBCUT ONE (08:49)
[2018-06-02] MEDS: INSULIN LISPRO 100 UNIT/ML 3 ML VIAL SUBCUT SCH ×4 (08:52→21:19)
[2018-06-02] MEDS: PREDNISONE 20 MG TABLET PO SCH (08:59)
[2018-06-02] MEDS: DULOXETINE HCL 30 MG CAPSULE.DR PO SCH ×2 (08:59→21:19)
[2018-06-02] MEDS: ENOXAPARIN SODIUM INJ 40 MG/0.4 ML DISP.SYRIN SUBCUT SCH (08:59)
[2018-06-02] MEDS: MULTIVITAMIN TABLET PO SCH (09:00)
[2018-06-02] MEDS: HYDROCHLOROTHIAZIDE 25 MG TABLET PO SCH (09:00)
[2018-06-02] MEDS: SITAGLIPTIN PHOSPHATE 50 MG TABLET PO SCH (09:00)
[2018-06-02] MEDS: VALSARTAN 160 MG TABLET PO SCH (09:00)
[2018-06-02] MEDS: METOPROLOL SUCCINATE 50 MG TAB.SR.24H PO SCH (09:01)
[2018-06-02] MEDS: FLUTICASONE/UMECLIDIN/VILANTER 100-62.5-25 MCG/DOSE IH SCH (09:01)
--- NOTE | 2018-06-02 17:57 | Physician Advisory Note ---
Physician Advisor ProgressNote .: Pursuant to the plan for [facility], I have reviewed the medical record for this patient. Physician Advisor Statement: H&P states pt w/home O2 came back to ED w/SOB, mild distress, wheezing, WBC 15. Very little else ED documentation indicates pt usually on 4L O2 at baseline, had O2 sat for EMS of 70% at home, & was in mod-sev resp distress for them, leading to CPAP use that brought sat up to 90%. Medical necessity: PN 06/01 does not mention any ongoing sx, said she was NAD w/wheezes (but she has end-stage COPD), & "not presently requiring BIpap , on O2 nc" - Was she back to her baseline as of the time of 06/01 PM progress note? - If not, what was different/requiring ongoing hospital level care? Was she still needing Bipap much of the time, just not at the very moment of evaluation? Was she hemodynamically unstable? ... How was she different from baseline? - If back to baseline why wasn't she d/c'd then? Attending needs to "paint the picture", each day, so that reviewers can easily see why patient continued to need hospital care & monitoring each day. Thanks! CK
[2018-06-02] MEDS ORDERED: LEVALBUTEROL HCL NEB 0.63 MG/3 ML AMPUL NEB PRN (18:55)
--- NOTE | 2018-06-02 18:56 | PDOC PROGRESS REPORT ---
Subjective Progress Note for:: 06/02/18 Subjective:: Patient was seen by the bedside, the arterial blood gas showed pH 7.4 PCO2 51.6 PCO2 84 bicarbonate 31.3 consistent with a mixed acid-base disorder patient continues to require noninvasive positive pressure ventilation BiPAP on intermittent basis Reason For Visit: ACUTE HYPOXEMIC RESPIRATORY FAILURE,COPD Physical Exam Vital Signs: Temp Pulse Resp BP Pulse Ox 98.7 F 73 14 138/81 H 98 06/02/18 16:00 06/02/18 16:00 06/02/18 16:00 06/02/18 16:00 06/02/18 16:00 Intake & Output 06/01/18 06/02/18 06/03/18 06:59 06:59 06:59 Intake Total 893 639 0952 Output Total 1250 4600 2050 Balance -730 -9790 -520 Weight 111.5 kg 111.1 kg General appearance: PRESENT: mild distress Eye exam: PRESENT: PERRLA Respiratory exam: PRESENT: wheezes Cardiovascular exam: PRESENT: +S1, +S2 GI/Abdominal exam: PRESENT: soft Neurological exam: PRESENT: alert Results Laboratory Results: 05/31/18 07:45 05/31/18 07:45 05/31/18 08:15 Gaines Catheter Urine Culture - Final NO GROWTH 2 DAYS 05/31/18 05/31/18 05/31/18 07:45 07:45 07:45 Creatine Kinase < 20 L CK-MB (CK-2) 0.36 Troponin I < 0.012 NT-Pro-B Natriuret Pep 423 Impressions: Chest X-Ray 05/31/18 08:44 IMPRESSION: No acute abnormality of the lungs. Assessment & Plan - Diagnosis (1) Acute hypercapnic respiratory failure Is this a current diagnosis for this admission?: Yes (2) COPD with acute exacerbation Is this a current diagnosis for this admission?: Yes Plan: Continue present treatment (3) Chronic respiratory failure Qualifiers: Respiratory failure complication: hypoxia and hypercapnia Qualified Code(s): J96.11 - Chronic respiratory failure with hypoxia; J96.12 - Chronic respiratory failure with hypercapnia Is this a current diagnosis for this admission?: Yes Plan: Continue noninvasive positive pressure ventilation (4) Mixed acid base balance disorder Is this a current diagnosis for this admission?: Yes
[2018-06-02 20:03] LABS: ABSOLUTE LYMPHOCYTES (AUTO) 0.9 10^3/uL (0.5-4.7); ABSOLUTE MONOCYTES (AUTO) 0.3 10^3/uL (0.1-1.4); ABSOLUTE NEUT (AUTO) 10.2 10^3/uL (1.7-8.2); BASOPHILS % (AUTO) 0.3 % (0-2); EOSINOPHILS % (AUTO) 0.1 % (0-6); HEMATOCRIT 36.5 % (36.0-47.0); HEMOGLOBIN 12.3 g/dL (12.0-15.5); LYMPHOCYTES % (AUTO) 7.7 % (13-45); MEAN CORPUSCULAR HEMOGLOBIN 30.5 pg (27.0-33.4); MEAN CORPUSCULAR HGB CONC 33.7 g/dL (32.0-36.0); MEAN CORPUSCULAR VOLUME 90 fl (80-97); MONOCYTES % (AUTO) 2.7 % (3-13); PLATELET COUNT 335 10^3/uL (150-450); RED BLOOD COUNT 4.05 10^6/uL (3.72-5.28); RED CELL DISTRIBUTION WIDTH 16.1 % (11.5-14.0); SEGMENTED NEUTROPHILS % (AUTO) 89.2 % (42-78); TOTAL CELLS COUNTED % (AUTO) 100 %; WHITE BLOOD COUNT 11.4 10^3/uL (4.0-10.5)
[2018-06-02 20:18] LABS: ALANINE AMINOTRANSFERASE 21 U/L (9-52); ALBUMIN 3.7 g/dL (3.5-5.0); ALKALINE PHOSPHATASE 95 U/L (38-126); ANION GAP 10 (5-19); ASPARTATE AMINO TRANSFERASE 19 U/L (14-36); BILIRUBIN,DIRECT 0.3 mg/dL (0.0-0.4); BILIRUBIN,TOTAL 0.5 mg/dL (0.2-1.3); BLOOD UREA NITROGEN 34 mg/dL (7-20); CALCIUM 9.3 mg/dL (8.4-10.2); CARBON DIOXIDE 32 mmol/L (22-30); CHLORIDE 92 mmol/L (98-107); GLUCOSE 261 mg/dL (75-110); POTASSIUM 4.1 mmol/L (3.6-5.0); SODIUM 134.4 mmol/L (137-145); TOTAL PROTEIN 7.8 g/dL (6.3-8.2)
[2018-06-02 21:51] LABS: ARTERIAL BLOOD BASE EXCESS 5.4 mmol/L; ARTERIAL BLOOD H2CO3 1.55 mmol/L (1.05-1.35); ARTERIAL BLOOD HCO3 31.3 mmol/L (20-24); ARTERIAL BLOOD O2 SATURATION 96.2 % (94-98); ARTERIAL BLOOD PCO2 51.6 mmHg (35-45); ARTERIAL BLOOD TOTAL CO2 32.9 mmol/L (21-25)
[2018-06-02 21:52] LABS: ARTERIAL BLOOD FIO2 3L
[2018-06-03 04:10] LABS: ABSOLUTE BASOPHILS # (AUTO) 0.1 10^3/uL (0.0-0.2); ABSOLUTE EOSINOPHILS # (AUTO) 0.1 10^3/uL (0.0-0.6); ABSOLUTE LYMPHOCYTES (AUTO) 1.6 10^3/uL (0.5-4.7); ABSOLUTE MONOCYTES (AUTO) 0.7 10^3/uL (0.1-1.4); ABSOLUTE NEUT (AUTO) 8.2 10^3/uL (1.7-8.2); BASOPHILS % (AUTO) 0.6 % (0-2); EOSINOPHILS % (AUTO) 0.5 % (0-6); HEMOGLOBIN 12.4 g/dL (12.0-15.5); MEAN CORPUSCULAR HEMOGLOBIN 30.9 pg (27.0-33.4); MEAN CORPUSCULAR HGB CONC 34.4 g/dL (32.0-36.0); MEAN CORPUSCULAR VOLUME 90 fl (80-97); MONOCYTES % (AUTO) 6.2 % (3-13); PLATELET COUNT 326 10^3/uL (150-450); RED BLOOD COUNT 4.01 10^6/uL (3.72-5.28); RED CELL DISTRIBUTION WIDTH 16.2 % (11.5-14.0); SEGMENTED NEUTROPHILS % (AUTO) 77.7 % (42-78); TOTAL CELLS COUNTED % (AUTO) 100 %; WHITE BLOOD COUNT 10.6 10^3/uL (4.0-10.5)
[2018-06-03 04:34] LABS: ALANINE AMINOTRANSFERASE 29 U/L (9-52); ALBUMIN 3.5 g/dL (3.5-5.0); ALKALINE PHOSPHATASE 86 U/L (38-126); ANION GAP 9 (5-19); ASPARTATE AMINO TRANSFERASE 14 U/L (14-36); BILIRUBIN,DIRECT 0.2 mg/dL (0.0-0.4); BILIRUBIN,TOTAL 0.4 mg/dL (0.2-1.3); BLOOD UREA NITROGEN 36 mg/dL (7-20); CALCIUM 9.7 mg/dL (8.4-10.2); CARBON DIOXIDE 30 mmol/L (22-30); CHLORIDE 97 mmol/L (98-107); GLUCOSE 226 mg/dL (75-110); POTASSIUM 4.1 mmol/L (3.6-5.0); SODIUM 135.9 mmol/L (137-145); TOTAL PROTEIN 6.8 g/dL (6.3-8.2)
[2018-06-03] MEDS: GABAPENTIN 400 MG CAPSULE PO SCH ×3 (06:04→21:04)
[2018-06-03] MEDS: SITAGLIPTIN PHOSPHATE 50 MG TABLET PO SCH (09:57)
[2018-06-03] MEDS: PREDNISONE 20 MG TABLET PO SCH (09:57)
[2018-06-03] MEDS: MULTIVITAMIN TABLET PO SCH (09:57)
[2018-06-03] MEDS: METOPROLOL SUCCINATE 50 MG TAB.SR.24H PO SCH (09:57)
[2018-06-03] MEDS: DULOXETINE HCL 30 MG CAPSULE.DR PO SCH ×2 (09:57→21:03)
[2018-06-03] MEDS: VALSARTAN 160 MG TABLET PO SCH (09:57)
[2018-06-03] MEDS: HYDROCHLOROTHIAZIDE 25 MG TABLET PO SCH (09:58)
[2018-06-03] MEDS: ENOXAPARIN SODIUM INJ 40 MG/0.4 ML DISP.SYRIN SUBCUT SCH (09:58)
[2018-06-03] MEDS: INSULIN LISPRO 100 UNIT/ML 3 ML VIAL SUBCUT SCH ×4 (09:58→21:17)
[2018-06-03] MEDS: FLUTICASONE/UMECLIDIN/VILANTER 100-62.5-25 MCG/DOSE IH SCH (13:54)
--- NOTE | 2018-06-03 21:09 | PDOC PROGRESS REPORT ---
Subjective Progress Note for:: 06/03/18 Subjective:: Patient was seen by the bedside, the arterial blood gas showed pH 7.4 PCO2 51.6 PCO2 84 bicarbonate 31.3 consistent with a mixed acid-base disorder patient continues to require noninvasive positive pressure ventilation BiPAP on intermittent basisThe PFT that was done, the spirometry consistent with severe COPD the DLCO suggests severe diffusion defect Reason For Visit: ACUTE HYPOXEMIC RESPIRATORY FAILURE,COPD Physical Exam Vital Signs: Temp Pulse Resp BP Pulse Ox 98.3 F 77 18 104/62 92 06/03/18 19:32 06/03/18 19:32 06/03/18 19:32 06/03/18 19:32 06/03/18 19:32 Intake & Output 06/02/18 06/03/18 06/04/18 06:59 06:59 06:59 Intake Total 990 2130 1066 Output Total 4600 3850 1000 Balance -3610 -1720 66 Weight 111.1 kg 110.6 kg General appearance: PRESENT: no acute distress Eye exam: PRESENT: PERRLA Respiratory exam: PRESENT: clear to auscultation [place] Cardiovascular exam: PRESENT: +S1, +S2 GI/Abdominal exam: PRESENT: soft Neurological exam: PRESENT: alert Results Laboratory Results: 06/03/18 03:48 06/03/18 03:48 06/02/18 06/03/18 06/03/18 21:35 03:48 03:48 WBC 10.6 H RBC 4.01 Hgb 12.4 Hct 36.0 MCV 90 MCH 30.9 MCHC 34.4 RDW 16.2 H Plt Count 326 Seg Neutrophils % 77.7 Lymphocytes % 15.0 Monocytes % 6.2 Eosinophils % 0.5 Basophils % 0.6 Absolute Neutrophils 8.2 Absolute Lymphocytes 1.6 Absolute Monocytes 0.7 Absolute Eosinophils 0.1 Absolute Basophils 0.1 Carbonic Acid 1.55 H HCO3/H2CO3 Ratio 20:1 ABG pH 7.40 ABG pCO2 51.6 H ABG pO2 84.0 ABG HCO3 31.3 H ABG O2 Saturation 96.2 ABG Base Excess 5.4 FiO2 3L Sodium 135.9 L Potassium 4.1 Chloride 97 L Carbon Dioxide 30 Anion Gap 9 BUN 36 H Creatinine 0.92 Est GFR ( Amer) > 60 Est GFR (Non-Af Amer) > 60 Glucose 226 H Calcium 9.7 Total Bilirubin 0.4 AST 14 ALT 29 Alkaline Phosphatase 86 Total Protein 6.8 Albumin 3.5 05/31/18 08:53 Blood Blood Culture - Final Staphylococcus Epidermidis 05/31/18 05/31/18 05/31/18 07:45 07:45 07:45 Creatine Kinase < 20 L CK-MB (CK-2) 0.36 Troponin I < 0.012 NT-Pro-B Natriuret Pep 423 Impressions: Chest X-Ray 05/31/18 08:44 IMPRESSION: No acute abnormality of the lungs. Assessment & Plan - Diagnosis (1) Acute hypercapnic respiratory failure Is this a current diagnosis for this admission?: Yes (2) COPD with acute exacerbation Is this a current diagnosis for this admission?: Yes Plan: Continue present treatment (3) Chronic respiratory failure Qualifiers: Respiratory failure complication: hypoxia and hypercapnia Qualified Code(s): J96.11 - Chronic respiratory failure with hypoxia; J96.12 - Chronic respiratory failure with hypercapnia Is this a current diagnosis for this admission?: Yes Plan: Continue noninvasive positive pressure ventilation (4) Mixed acid base balance disorder Is this a current diagnosis for this admission?: Yes Plan: Patient may need to move to long-term [facility] living facility
[2018-06-04] MEDS: GABAPENTIN 400 MG CAPSULE PO SCH ×3 (05:13→21:55)
[2018-06-04] MEDS: INSULIN LISPRO 100 UNIT/ML 3 ML VIAL SUBCUT SCH ×4 (08:48→21:56)
[2018-06-04] MEDS: PREDNISONE 20 MG TABLET PO SCH (10:28)
[2018-06-04] MEDS: DULOXETINE HCL 30 MG CAPSULE.DR PO SCH ×2 (10:28→21:56)
[2018-06-04] MEDS: METOPROLOL SUCCINATE 50 MG TAB.SR.24H PO SCH (10:28)
[2018-06-04] MEDS: MULTIVITAMIN TABLET PO SCH (10:29)
[2018-06-04] MEDS: VALSARTAN 160 MG TABLET PO SCH (10:29)
[2018-06-04] MEDS: HYDROCHLOROTHIAZIDE 25 MG TABLET PO SCH (10:29)
[2018-06-04] MEDS: ENOXAPARIN SODIUM INJ 40 MG/0.4 ML DISP.SYRIN SUBCUT SCH ×2 (10:30→10:35)
[2018-06-04] MEDS: SITAGLIPTIN PHOSPHATE 50 MG TABLET PO SCH (10:30)
[2018-06-04] MEDS: FLUTICASONE/UMECLIDIN/VILANTER 100-62.5-25 MCG/DOSE IH SCH (10:32)
--- NOTE | 2018-06-04 18:12 | PDOC PROGRESS REPORT ---
Subjective Progress Note for:: 06/04/18 Subjective:: Patient was seen by the bedside, the arterial blood gas showed pH 7.4 PCO2 51.6 PCO2 84 bicarbonate 31.3 consistent with a mixed acid-base disorder patient continues to require noninvasive positive pressure ventilation BiPAP on intermittent basisThe PFT that was done, the spirometry consistent with severe COPD the DLCO suggests severe diffusion defect Reason For Visit: ACUTE HYPOXEMIC RESPIRATORY FAILURE,COPD Physical Exam Vital Signs: Temp Pulse Resp BP Pulse Ox 97.9 F 74 18 100/53 L 75 L 06/04/18 16:00 06/04/18 16:00 06/04/18 16:00 06/04/18 16:00 06/04/18 16:00 Intake & Output 06/03/18 06/04/18 06/05/18 06:59 06:59 06:59 Intake Total 2130 1586 738 Output Total 3850 3100 1000 Balance -9020 -4134 -262 Weight 110.6 kg 111 kg General appearance: PRESENT: no acute distress Eye exam: PRESENT: PERRLA Respiratory exam: PRESENT: rhonchi, wheezes Cardiovascular exam: PRESENT: +S1, +S2 GI/Abdominal exam: PRESENT: soft Results Laboratory Results: 06/03/18 03:48 06/03/18 03:48 05/31/18 05/31/18 05/31/18 07:45 07:45 07:45 Creatine Kinase < 20 L CK-MB (CK-2) 0.36 Troponin I < 0.012 NT-Pro-B Natriuret Pep 423 Impressions: Chest X-Ray 05/31/18 08:44 IMPRESSION: No acute abnormality of the lungs. Assessment & Plan - Diagnosis (1) Acute hypercapnic respiratory failure Is this a current diagnosis for this admission?: Yes Plan: Patient not presently requiring noninvasive positive pressure ventilation with BiPAP she is on oxygen via nasal cannula (2) COPD with acute exacerbation Is this a current diagnosis for this admission?: Yes Plan: Continue present treatment (3) Chronic respiratory failure Qualifiers: Respiratory failure complication: hypoxia and hypercapnia Qualified Code(s): J96.11 - Chronic respiratory failure with hypoxia; J96.12 - Chronic respiratory failure with hypercapnia Is this a current diagnosis for this admission?: Yes Plan: Continue noninvasive positive pressure ventilation (4) Mixed acid base balance disorder Is this a current diagnosis for this admission?: Yes Plan: Patient may need to move to long-term custodial living facility
[2018-06-05] MEDS: GABAPENTIN 400 MG CAPSULE PO SCH ×3 (05:00→22:16)
[2018-06-05] MEDS: INSULIN LISPRO 100 UNIT/ML 3 ML VIAL SUBCUT SCH ×4 (10:47→22:15)
[2018-06-05] MEDS: DULOXETINE HCL 30 MG CAPSULE.DR PO SCH ×2 (10:48→22:16)
[2018-06-05] MEDS: METOPROLOL SUCCINATE 50 MG TAB.SR.24H PO SCH (10:48)
[2018-06-05] MEDS: SITAGLIPTIN PHOSPHATE 50 MG TABLET PO SCH (10:48)
[2018-06-05] MEDS: HYDROCHLOROTHIAZIDE 25 MG TABLET PO SCH (10:48)
[2018-06-05] MEDS: MULTIVITAMIN TABLET PO SCH (10:48)
[2018-06-05] MEDS: VALSARTAN 160 MG TABLET PO SCH (10:48)
[2018-06-05] MEDS: ENOXAPARIN SODIUM INJ 40 MG/0.4 ML DISP.SYRIN SUBCUT SCH (10:50)
[2018-06-05] MEDS: FLUTICASONE/UMECLIDIN/VILANTER 100-62.5-25 MCG/DOSE IH SCH (10:52)
--- NOTE | 2018-06-05 16:14 | PDOC DISCHARGE SUMMARY ---
General - Admit/Disc Date/PCP Admission Date/Primary Care Provider: 05/31/18 09:31 TOÑA MCLEAN MD Discharge Date: 06/06/18 - Discharge Diagnosis (1) Acute hypercapnic respiratory failure Is this a current diagnosis for this admission?: Yes (2) COPD with acute exacerbation Is this a current diagnosis for this admission?: Yes (3) Chronic respiratory failure Is this a current diagnosis for this admission?: Yes (4) Mixed acid base balance disorder Is this a current diagnosis for this admission?: Yes - Additional Information Resuscitation Status: Full Code Home Medications: Albuterol Sulfate [Proair HFA Inhalation Aerosol 8.5 gm MDI] 1 puff IH Q4HP PRN 05/11/18 Canagliflozin [Invokana] 300 mg PO DAILY 05/11/18 Duloxetine HCl [Cymbalta] 60 mg PO Q12 05/11/18 Gabapentin [Neurontin] 1,200 mg PO Q8 05/11/18 Insulin Aspart [Novolog Flexpen] 10 unit SUBCUT MEALS 05/11/18 Insulin Detemir [Levemir Insulin 100 units/mL] 55 unit SUBCUT QPM 05/11/18 Linagliptin [Tradjenta] 5 mg PO DAILY 05/11/18 Metoprolol Succinate [Toprol XL 100 mg Tablet] 100 mg PO DAILY 05/11/18 Multivitamin [Multiple Vitamins] 1 each PO DAILY 05/11/18 Fluticasone/Umeclidin/Vilanter [Trelegy 100-62.5-25 Mcg Ellipta 14 Dose/Dpi] 1 puff IH DAILY 05/31/18 Valsartan/Hydrochlorothiazide [Valsartan-Hctz 160-25 mg Tab] 1 each PO DAILY 05/31/18 History of Present Illness History of Present Illness: DARCY NAVA is a 72 year old female, She has chronic respiratory failure due to end-stage chronic obstructive pulmonary disease. She was just discharged from this hospital on 05/19/2018 when she was admitted for the management of acute COPD exacerbation with associated acute hypercapnic respiratory failure. I saw her in the office last week Wednesday for follow-up evaluation, she was prescribed prednisone and she was advised to see me this week on Wednesday in the office, she called rescue squad and she was transferred to the emergency room because of shortness of breath. She has chronic systolic failure on home oxygen.She has multiple hospitalization Hospital Course Hospital Course: She was admitted for the management of acute on chronic respiratory failure, she has very severe COPD she was treated with corticosteroids, bronchodilators. In the last 24 hours there is significant improvement in patient's symptoms, she will be discharged to home for continued care Physical Exam Vital Signs: Temp Pulse Resp BP Pulse Ox 97.4 F 76 18 80/50 L 96 06/05/18 15:25 06/05/18 15:25 06/05/18 15:25 06/05/18 15:25 06/05/18 15:25 Intake & Output 06/04/18 06/05/18 06/06/18 06:59 06:59 06:59 Intake Total 1586 1226 843 Output Total 3100 3100 600 Balance -1514 -9964 243 Weight 111 kg 111.3 kg General appearance: PRESENT: no acute distress, well-developed, well-nourished Head exam: PRESENT: atraumatic, normocephalic Eye exam: PRESENT: conjunctiva pink, EOMI, PERRLA Ear exam: PRESENT: normal external ear exam Mouth exam: PRESENT: moist, tongue midline Neck exam: PRESENT: full ROM Respiratory exam: PRESENT: clear to auscultation [place] Cardiovascular exam: PRESENT: RRR, +S1, +S2 Pulses: PRESENT: normal dorsalis pedis pul, +2 pedal pulses bilateral Vascular exam: PRESENT: normal capillary refill GI/Abdominal exam: PRESENT: normal bowel sounds, soft Rectal exam: PRESENT: deferred Neurological exam: PRESENT: alert, CN II-XII grossly intact Psychiatric exam: PRESENT: appropriate affect, normal mood Skin exam: PRESENT: dry, intact, warm Results Laboratory Results: 06/03/18 03:48 06/03/18 03:48 05/31/18 07:45 Blood Blood Culture - Final NO GROWTH IN 5 DAYS 05/31/18 05/31/18 05/31/18 07:45 07:45 07:45 Creatine Kinase < 20 L CK-MB (CK-2) 0.36 Troponin I < 0.012 NT-Pro-B Natriuret Pep 423 Impressions: Chest X-Ray 05/31/18 08:44 IMPRESSION: No acute abnormality of the lungs. Qualifiers - * PATIENT BEING DISCHARGED WITH ANY OF THE FOLLOWING DIAGNOSIS: No
[2018-06-05] MEDS ORDERED: IBUPROFEN 800 MG TABLET ONE (17:33)
[2018-06-05] MEDS ORDERED: IBUPROFEN 800 MG TABLET PO ONE (17:45)
[2018-06-05] MEDS ORDERED: IBUPROFEN 600 MG TABLET PO ONE (17:45)
[2018-06-06] MEDS: GABAPENTIN 400 MG CAPSULE PO SCH (06:53)
[2018-06-06] MEDS: INSULIN LISPRO 100 UNIT/ML 3 ML VIAL SUBCUT SCH (08:42)
[2018-06-06] MEDS: ENOXAPARIN SODIUM INJ 40 MG/0.4 ML DISP.SYRIN SUBCUT SCH (10:14)
[2018-06-06] MEDS: MULTIVITAMIN TABLET PO SCH (10:16)
[2018-06-06] MEDS: DULOXETINE HCL 30 MG CAPSULE.DR PO SCH (10:18)
[2018-06-06] MEDS: HYDROCHLOROTHIAZIDE 25 MG TABLET PO SCH (10:19)
[2018-06-06] MEDS: METOPROLOL SUCCINATE 50 MG TAB.SR.24H PO SCH (10:19)
[2018-06-06] MEDS: SITAGLIPTIN PHOSPHATE 50 MG TABLET PO SCH (10:19)
[2018-06-06] MEDS: VALSARTAN 160 MG TABLET PO SCH (10:19)
[2018-06-06] MEDS: FLUTICASONE/UMECLIDIN/VILANTER 100-62.5-25 MCG/DOSE IH SCH (10:19)
[2018-06-06 12:31] VITALS: BP 92/55
--- NOTE | 2018-06-08 16:41 | Pulmonary Function Test ---
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 Mild obstructive ventilatory defect. (Restrictive defect may mask the degree of obstruction) there is a insignificant response to bronchodilator therapy. This does not preclude a clinical trial of bronchodilator therapy. Severe decrease in diffusion capacity. This study indicates progression of restrictive defect since the prior study. The obstructive defect and diffusion capacity are essentially the same
== END 2018-06-06 13:09 | disposition home health service (06) | DRG 189 ==
LOC: ER 07:47 → EH 09:31 → 5 15:12
PROVIDERS: ADMIT Internal Medicine; ATTEND Internal Medicine
DX: J96.21 Acute and chronic respiratory failure with hypoxia (principal); J44.1 Chronic obstructive pulmonary disease with (acute) exacerbation; E87.4 Mixed disorder of acid-base balance; J96.22 Acute and chronic respiratory failure with hypercapnia; I10 Essential (primary) hypertension; E11.649 Type 2 diabetes mellitus with hypoglycemia without coma; N18.3 Chronic kidney disease, stage 3 (moderate); Z86.718 Personal history of other venous thrombosis and embolism; Z87.891 Personal history of nicotine dependence; Z79.84 Long term (current) use of oral hypoglycemic drugs; Z79.4 Long term (current) use of insulin; Z79.51 Long term (current) use of inhaled steroids; Z79.52 Long term (current) use of systemic steroids; Z79.899 Other long term (current) drug therapy
CPT/HCPCS: 36415; 36600; 51702; 71045; 80053; 81001; 82550; 82553; 82803; 82962; 83605; 83880; 84484; 85025; 85610; 87040; 87077; 87086; 87186; 93005; 93010; 94060; 94640; 94660; 94727; 94729; 96374; 96375; 99291; J1650; J1815; J2930; J3490; J7512; J7614

== ENCOUNTER 2018-06-11 03:19 | Inpatient (IN) | payer MEDICARE, MEDICAID ==
[2018-06-11 04:06] LABS: ABSOLUTE EOSINOPHILS # (AUTO) 0.3 10^3/uL (0.0-0.6); ABSOLUTE LYMPHOCYTES (AUTO) 1.6 10^3/uL (0.5-4.7); ABSOLUTE MONOCYTES (AUTO) 1.4 10^3/uL (0.1-1.4); ABSOLUTE NEUT (AUTO) 11.9 10^3/uL (1.7-8.2); BASOPHILS % (AUTO) 0.2 % (0-2); EOSINOPHILS % (AUTO) 1.7 % (0-6); HEMOGLOBIN 11.3 g/dL (12.0-15.5); LYMPHOCYTES % (AUTO) 10.4 % (13-45); MEAN CORPUSCULAR HGB CONC 34.1 g/dL (32.0-36.0); MEAN CORPUSCULAR VOLUME 91 fl (80-97); MONOCYTES % (AUTO) 9.3 % (3-13); PLATELET COUNT 407 10^3/uL (150-450); RED BLOOD COUNT 3.63 10^6/uL (3.72-5.28); RED CELL DISTRIBUTION WIDTH 16.4 % (11.5-14.0); SEGMENTED NEUTROPHILS % (AUTO) 78.4 % (42-78); TOTAL CELLS COUNTED % (AUTO) 100 %; WHITE BLOOD COUNT 15.2 10^3/uL (4.0-10.5)
[2018-06-11 04:26] LABS: ALANINE AMINOTRANSFERASE 24 U/L (9-52); ALKALINE PHOSPHATASE 112 U/L (38-126); ANION GAP 13 (5-19); ASPARTATE AMINO TRANSFERASE 21 U/L (14-36); BILIRUBIN,DIRECT 0.5 mg/dL (0.0-0.4); BILIRUBIN,TOTAL 0.9 mg/dL (0.2-1.3); BLOOD UREA NITROGEN 25 mg/dL (7-20); CARBON DIOXIDE 25 mmol/L (22-30); CHLORIDE 94 mmol/L (98-107); CREATINE KINASE 31 U/L (30-135); GLUCOSE 333 mg/dL (75-110); POTASSIUM 4.2 mmol/L (3.6-5.0); SODIUM 131.7 mmol/L (137-145); TOTAL PROTEIN 6.4 g/dL (6.3-8.2)
[2018-06-11 04:37] LABS: CREATINE KINASE MB 0.39 ng/mL (<4.55)
[2018-06-11 04:45] LABS: TROPONIN I < 0.012 ng/mL
--- NOTE | 2018-06-11 04:53 | RADIOLOGY REPORT (SQ) ---
EXAM DESCRIPTION: XR CHEST 2 VIEWS COMPLETED DATE/TME: 06/11/2018 00:00 CLINICAL HISTORY: 72 years Female, chest pain COMPARISON:May 31 2018 NUMBER OF VIEWS/TECHNIQUE: 2, Frontal, Lateral FINDINGS: Adequate lung volume, moderate patchy opacity of the right lower lobe, normal cardiac silhouette, and intact bony thorax. IMPRESSION: Moderate right lower lobar pneumonia. Recommend CR/CT surveillance including at 7-12 weeks following initiation of any clinically warranted therapy.
[2018-06-11 05:41] LABS: APPEARANCE,URINE TURBID; BILIRUBIN,URINE NEGATIVE (NEGATIVE); COLOR,URINE YELLOW; GLUCOSE, URINE >=500 mg/dL (NEGATIVE); KETONES,URINE TRACE mg/dL (NEGATIVE); LEUKOCYTE ESTERASE,URINE LARGE (NEGATIVE); NITRITE,URINE NEGATIVE (NEGATIVE); PROTEIN,URINE NEGATIVE (NEGATIVE); URINE SPECIFIC GRAVITY 1.023; UROBILINOGEN,URINE NEGATIVE mg/dL (<2.0)
[2018-06-11] MEDS ORDERED: METHYLPREDNISOLONE INJ 125 MG/2 ML SDV IV ONE (05:55)
[2018-06-11] MEDS ORDERED: CEFEPIME 2 GM/D5W RTU 2 GM/50 ML RTUPB IV ONE (05:55)
[2018-06-11] MEDS ORDERED: IPRATROPIUM/ALBUTEROL 0.5-2.5 MG/3 ML AMPUL NEB ONE (05:55)
--- NOTE | 2018-06-11 05:56 | ER Document Report ---
ED General - General Chief Complaint: Chest Pain > 30 Stated Complaint: CHEST PAIN Time Seen by Provider: 06/11/18 04:19 Notes: Patient is a 72-year-old female with a history of respiratory failure, COPD, systolic CHF, comes emergency department for chief complaint of worsening weakness and difficulty breathing. She has a worsening productive cough reportedly. No reported fevers. She reports some discomfort across her chest but this is with coughing episodes. She denies abdominal pain, flank pain, headache. She lives at home with home health, uses 3 L nasal cannula at all times. She was just discharged from the hospital earlier this month after a COPD exacerbation. Has completed a recent course of steroids and antibiotics. TRAVEL OUTSIDE OF THE [place] IN LAST 30 DAYS: No - Related Data Allergies/Adverse Reactions: propoxyphene [From Darvocet-N] Allergy (Verified 03/31/18 14:12) Delirium tapentadol [From Nucynta] Allergy (Verified 03/31/18 14:12) Delirium Past Medical History - General Information source: Patient - Social History Smoking Status: Never Smoker Chew tobacco use (# tins/day): No Frequency of alcohol use: None Drug Abuse: None Lives with: Alone Family History: Reviewed & Not Pertinent, COPD, DM, Malignancy - Brother with throat cancer, Other - Father with tuberculosis Patient has suicidal ideation: No Patient has homicidal ideation: No - Past Medical History Cardiac Medical History: Reports: Hx DVT, Hx Hypertension - ON MEDS Pulmonary Medical History: Reports: Hx Bronchitis, Hx COPD - USES NEB AND INHALER, Hx Pneumonia - 2 YRS AGO Neurological Medical History: Denies: Hx Cerebrovascular Accident Endocrine Medical History: Reports: Hx Diabetes Mellitus Type 2. Denies: Hx Graves' Disease Renal/ Medical History: Reports: Hx End Stage Renal Disease - Stage 3- NO DIALYSIS. Denies: Hx Kidney Stones, Hx Ovarian Cysts, Hx Peritoneal Dialysis, Hx Pelvic Inflammatory Disease Malignancy Medical History: Reports: Hx Ovarian Cancer - PRE-CANCEROUS, TOTAL HYST, QUINN SALPINGOOPHORECTOMY GI Medical History: Reports: Hx Hiatal Hernia. Denies: Hx Irritable Bowel, Hx Liver Failure, Hx Pancreatitis, Hx Ulcer Musculoskeletal Medical History: Reports Hx Arthritis, Denies Hx Multiple Sclerosis, Denies Hx Muscular Dystrophy Psychiatric Medical History: Reports: Hx Depression Denies: Hx Schizophrenia Traumatic Medical History: Denies: Hx Fractures Past Surgical History: Reports: Hx Abdominal Surgery, Hx Appendectomy, Hx Bowel Surgery - EX LAP, ILEOSTOMY, Hx Colostomy - History of colostomy revision , History of resection of the colon, Hx Hysterectomy, Hx Kidney (Renal Surgery) - Right kidney, Hx Orthopedic Surgery - left shoulder, Other - Recent history of extended right hemicolectomy with end ileostomy bag, rvsd - Immunizations Immunizations up to date: Yes Hx Diphtheria, Pertussis, Tetanus Vaccination: Yes Hx Pneumococcal Vaccination: 05/27/13 Review of Systems - Review of Systems Constitutional: See HPI EENT: No symptoms reported Cardiovascular: See HPI Respiratory: See HPI Gastrointestinal: No symptoms reported Genitourinary: No symptoms reported Female Genitourinary: No symptoms reported Musculoskeletal: No symptoms reported Skin: No symptoms reported Hematologic/Lymphatic: No symptoms reported Neurological/Psychological: No symptoms reported Physical Exam - Vital signs Vitals: BP 120/78 06/11/18 03:32 - Notes Notes: GENERAL: Alert, interactive, no distress HEAD: Normocephalic, atraumatic. EYES: Pupils equal, round, and reactive to light. Extraocular movements intact. ENT: Oral mucosa moist, tongue midline. Oropharynx unremarkable. Airway patent. Nares patent, no nasal septal hematoma, TM's intact. NECK: Full range of motion. Supple. Trachea midline. LUNGS: Expiratory wheezes and rhonchi heard throughout. No tachypnea noted, no labored breathing. Deep productive cough. HEART: Regular rate and rhythm. No murmur ABDOMEN: Soft, non-tender. Non-distended. Bowel sounds present in all 4 quadrants. GENITOURINARY: Deferred EXTREMITIES: Moves all 4 extremities spontaneously. No edema, normal radial and dorsalis pedis pulses bilaterally. No cyanosis. BACK: no cervical, thoracic, lumbar midline tenderness. No saddle anesthesia, normal distal neurovascular exam. NEUROLOGICAL: Alert and oriented x3. Normal speech. [cranial nerves II through XII grossly intact]. PSYCH: Normal affect, normal mood. SKIN: Warm, dry, normal turgor. No rashes or lesions noted. Course - Re-evaluation Re-evalutation: Patient has expiratory wheezes, rhonchi, deep congested cough which is occasionally productive. However she is not in respiratory distress, she is alert, conversational. She is not tachycardic or hypotensive. No fever here. Patient given DuoNeb, Solu-Medrol. CBC shows leukocytosis of 15,000 with elevation of neutrophils but no bandemia. Nonspecific given recent steroids. Chemistry generally unremarkable. Troponin is negative. Chest x-ray showing obvious right lower lobe pneumonia, urinalysis showing urinary tract infection. Culture was placed. Patient reporting weakness along with her productive cough and worsening shortness of breath. Based on her chronic disease, poor physical state, and hospital-acquired pneumonia will discuss with hospitalist for admission. Discussed with Dr. Garg. Discussed with Dr. Dewitt, on-call for Dr. Lizarraga, patient will be admitted to the medical floor. - Vital Signs Vital signs: Temp Pulse Resp BP Pulse Ox 98.1 F 91 20 111/61 96 06/11/18 04:03 06/11/18 03:35 06/11/18 05:01 06/11/18 05:01 06/11/18 05:01 - Laboratory Result Diagrams: 06/11/18 04:00 06/11/18 04:00 Laboratory results interpreted by me: 06/11/18 06/11/18 06/11/18 04:00 04:00 05:24 WBC 15.2 H RBC 3.63 L Hgb 11.3 L Hct 33.0 L RDW 16.4 H Seg Neutrophils % 78.4 H Lymphocytes % 10.4 L Absolute Neutrophils 11.9 H Sodium 131.7 L Chloride 94 L BUN 25 H Est GFR (Non-Af Amer) 57 L Glucose 333 H Direct Bilirubin 0.5 H Albumin 3.0 L Urine Glucose (UA) >=500 H Urine Ketones TRACE H Urine Blood SMALL H Ur Leukocyte Esterase LARGE H Urine Ascorbic Acid 20 H Discharge - Discharge Clinical Impression: Productive cough, Wheezing Pneumonia Qualifiers: Pneumonia type: due to unspecified organism Laterality: right Lung location: lower lobe of lung Qualified Code(s): J18.1 - Lobar pneumonia, unspecified organism Urinary tract infection Qualifiers: Urinary tract infection type: site unspecified Hematuria presence: without hematuria Qualified Code(s): N39.0 - Urinary tract infection, site not specified Chronic respiratory failure Qualifiers: Respiratory failure complication: hypoxia Qualified Code(s): J96.11 - Chronic respiratory failure with hypoxia Condition: Stable Disposition: ADMITTED INPATIENT Admitting Provider: Esdras - for Dr. Lizarraga Unit Admitted: Medical Floor
[2018-06-11] MEDS ORDERED: VANCOMYCIN HCL INJ 1000 MG VIAL IV ONE (05:58)
[2018-06-11] MEDS ORDERED: DEXTROSE 40% GEL 15 GM TUBE X 2 PO PRN ×2 (09:00→23:00)
[2018-06-11] MEDS ORDERED: GLUCAGON,HUMAN RECOMB 1 MG INJ IM PRN ×2 (09:00→23:00)
[2018-06-11] MEDS ORDERED: DEXTROSE 40% GEL 15 GM TUBE PO PRN ×2 (09:00→23:00)
[2018-06-11] MEDS ORDERED: DEXTROSE 50%-WATER SYRINGE 25 GM/50 ML DOSE IV PRN ×2 (09:00→23:00)
[2018-06-11] MEDS ORDERED: VANCOMYCIN HCL 2,000 MG in DEXTROSE 5%-WATER 500 ML IV ONE (09:00)
[2018-06-11] MEDS ORDERED: DEXTROSE 50%-WATER SYRINGE 12.5 GM/25 ML DOSE IV PRN ×2 (09:00→23:00)
[2018-06-11] MEDS ORDERED: CEFEPIME 1 GM/D5W RTU 1 GM/50 ML RTUPB IV SCH (10:00)
--- NOTE | 2018-06-11 10:58 | PDOC H&P ---
History of Present Illness Admission Date/PCP: 06/11/18 06:11 TOÑA MCLEAN MD History of Present Illness: DARCY NAVA is a 72 year old female patient of Dr Mclean who presented to the ED with worsening difficulty with breathing, productive cough and generalized weakness over last several days. Patient reported associated chest discomfort with coughing and described sputum as light brown in color. There is history of oxygen dependent COPD and she denied current cigarette smoking. She admitted to chills and feeling cold with intermittent diaphoresis but denied definite fever. No headache or dizziness. No abdominal pain, nausea or vomiting. She denied any dysuria, hematuria or flank pain. Her initial ED evaluation revealed leukcytosis, right lower lower opacification suggestive of air-space disease process. she was recently discharged from this facility following admi ssion for exacerbated COPD. Her other morbidities include Hypertension, DVT, Diabetes Mellitus Type 2, chronic kidney disease stage 3, Osteoarthritis, and Depression. In view of her presenting symptoms and clinical findings she was advised hospitalization for further evaluation and management. Past Medical History Cardiac Medical History: Reports: DVT, Hypertension - ON MEDS Pulmonary Medical History: Reports: Bronchitis, Chronic Obstructive Pulmonary Disease (COPD) - USES NEB AND INHALER, Pneumonia - 2 YRS AGO Endocrine Medical History: Reports: Diabetes Mellitus Type 2 Renal/ Medical History: Reports: End Stage Renal Disease - Stage 3- NO DIALYSIS Malignancy Medical History: Reports: Ovarian Cancer - PRE-CANCEROUS, TOTAL HYST, QUINN SALPINGOOPHORECTOMY GI Medical History: Reports: Hiatal Hernia Musculoskeltal Medical History: Reports: Arthritis Psychiatric Medical History: Reports: Depression Hematology: Reports: Anemia Past Surgical History Past Surgical History: Reports: Appendectomy, Colostomy - History of colostomy revision , History of resection of the colon, Hysterectomy, Orthopedic Surgery - left shoulder, Other - Recent history of extended right hemicolectomy with end ileostomy bag, rvsd Social History Lives with: Alone Smoking Status: Never Smoker Frequency of Alcohol Use: None Hx Recreational Drug Use: No Drugs: None Hx Prescription Drug Abuse: No - Advance Directive Resuscitation Status: Do Not Resuscitate Family History Family History: Reviewed & Not Pertinent, COPD, DM, Malignancy - Brother with throat cancer, Other - Father with tuberculosis Parental Family History Reviewed: Yes Children Family History Reviewed: Yes Sibling(s) Family History Reviewed.: Yes Medication/Allergy Allergies/Adverse Reactions: propoxyphene [From Darvocet-N] Allergy (Verified 03/31/18 14:12) Delirium tapentadol [From Nucynta] Allergy (Verified 03/31/18 14:12) Delirium Pork/Porcine Containing Products Adverse Reaction (Mild, Verified 06/11/18 09:08) VOMITING Review of Systems Constitutional: PRESENT: chills, weakness. ABSENT: fever(s), headache(s) Eyes: ABSENT: visual disturbances Ears: ABSENT: hearing changes Nose, Mouth, and Throat: ABSENT: headache(s), mouth pain, sore throat, vertigo Cardiovascular: PRESENT: chest pain - with coughing Respiratory: PRESENT: cough, dyspnea - related to her COPD, sputum Gastrointestinal: ABSENT: abdominal pain, constipation, diarrhea, hematemesis, hematochezia, nausea, vomiting Genitourinary: ABSENT: dysuria, hematuria Musculoskeletal: ABSENT: joint swelling Integumentary: PRESENT: diaphoresis - occasionally. ABSENT: rash, wounds Neurological: ABSENT: abnormal gait, abnormal speech, confusion, dizziness, focal weakness, syncope Endocrine: ABSENT: cold intolerance, heat intolerance, polydipsia, polyuria Hematologic/Lymphatic: ABSENT: easy bleeding, easy bruising, lymphadenopathy Allergic/Immunologic: ABSENT: seasonal rhinorrhea Physical Exam Vital Signs: Temp Pulse Resp BP Pulse Ox 98.6 F 88 16 100/55 L 96 06/11/18 07:43 06/11/18 07:49 06/11/18 07:43 06/11/18 07:43 06/11/18 07:43 Intake & Output 06/10/18 06/11/18 06/12/18 06:59 06:59 06:59 Intake Total 50 Balance 50 Weight 106.8 kg General appearance: PRESENT: obese Head exam: PRESENT: atraumatic, normocephalic Eye exam: PRESENT: conjunctiva pink, EOMI, PERRLA. ABSENT: scleral icterus Ear exam: PRESENT: normal external ear exam Mouth exam: PRESENT: moist Respiratory exam: PRESENT: crackles, decreased breath sounds. ABSENT: rhonchi, wheezes Cardiovascular exam: PRESENT: RRR. ABSENT: diastolic murmur, rubs, systolic murmur Vascular exam: PRESENT: normal capillary refill. ABSENT: pallor GI/Abdominal exam: PRESENT: normal bowel sounds, soft. ABSENT: distended, guarding, mass, organolmegaly, rebound, tenderness Rectal exam: PRESENT: deferred Extremities exam: ABSENT: pedal edema Musculoskeletal exam: PRESENT: normal inspection. ABSENT: tenderness Neurological exam: PRESENT: alert, awake, oriented to person, oriented to place, oriented to time, oriented to situation, CN II-XII grossly intact. ABSENT: motor sensory deficit Psychiatric exam: PRESENT: appropriate affect, normal mood. ABSENT: homicidal ideation, suicidal ideation Skin exam: PRESENT: dry, warm Results Laboratory Results: 06/11/18 04:00 06/11/18 04:00 06/11/18 06/11/18 06/11/18 04:00 04:00 05:24 WBC 15.2 H RBC 3.63 L Hgb 11.3 L Hct 33.0 L MCV 91 MCH 31.0 MCHC 34.1 RDW 16.4 H Plt Count 407 Seg Neutrophils % 78.4 H Lymphocytes % 10.4 L Monocytes % 9.3 Eosinophils % 1.7 Basophils % 0.2 Absolute Neutrophils 11.9 H Absolute Lymphocytes 1.6 Absolute Monocytes 1.4 Absolute Eosinophils 0.3 Absolute Basophils 0.0 Sodium 131.7 L Potassium 4.2 Chloride 94 L Carbon Dioxide 25 Anion Gap 13 BUN 25 H Creatinine 0.96 Est GFR ( Amer) > 60 Est GFR (Non-Af Amer) 57 L Glucose 333 H Calcium 10.0 Total Bilirubin 0.9 AST 21 ALT 24 Alkaline Phosphatase 112 Total Protein 6.4 Albumin 3.0 L Urine Color YELLOW Urine Appearance TURBID Urine pH 5.0 Ur Specific [place] 1.023 Urine Protein NEGATIVE Urine Glucose (UA) >=500 H Urine Ketones TRACE H Urine Blood SMALL H Urine Nitrite NEGATIVE Ur Leukocyte Esterase LARGE H Urine WBC (Auto) >182 Urine RBC (Auto) 125 06/11/18 06/11/18 04:00 04:00 Creatine Kinase 31 CK-MB (CK-2) 0.39 Troponin I < 0.012 Impressions: Chest X-Ray 06/11/18 00:00 IMPRESSION: Moderate right lower lobar pneumonia. Recommend CR/CT surveillance including at 7-12 weeks following initiation of any clinically warranted therapy. Assessment & Plan - Diagnosis (1) Pneumonia of right lower lobe due to infectious organism Is this a current diagnosis for this admission?: Yes Plan: There is concern for possible hospital acquired pneumonia in view of her recent hospitalization. I will request for sputum gram stain and culture. Follow up on pending blood culture findings. Maintain on IV Maxipem and Vancomycin therapy. (2) Urinary tract infection Qualifiers: Urinary tract infection type: site unspecified Hematuria presence: without hematuria Qualified Code(s): N39.0 - Urinary tract infection, site not specified Is this a current diagnosis for this admission?: Yes Plan: Follow up on urine culture findings. Meanwhile maintain on IV Maxepime coverage. (3) Chronic respiratory failure Qualifiers: Respiratory failure complication: hypoxia Qualified Code(s): J96.11 - Chronic respiratory failure with hypoxia Is this a current diagnosis for this admission?: Yes Plan: Maintain on her preadmission medication management and supplemental oxygen via nasal cannula. (4) COPD with hypoxia Is this a current diagnosis for this admission?: Yes Plan: Maintain on her preadmission medication management and supplemental oxygen via nasal cannula. (5) Diabetes mellitus type 2 in obese Is this a current diagnosis for this admission?: Yes Plan: Maintain on her preadmission medication management and sliding scale humalog insulin therapy achs. Emphasized dietary restriction compliance. (6) Hypertension Qualifiers: Hypertension type: essential hypertension Qualified Code(s): I10 - Essential (primary) hypertension Is this a current diagnosis for this admission?: Yes Plan: Maintain on her preadmission medication management. Emphasized dietary restric tion compliance. - Time Time Spent: 50 to 70 Minutes Medications reviewed and adjusted accordingly: Yes Anticipated discharge: Home with Homehealth Within: Other - Inpatient Certification Based on my medical assessment, after consideration of the patient's c omorbidities, presenting symptoms, or acuity I expect that the services needed warrant INPATIENT care.: Yes I certify that my determination is in accordance with my understanding of Medicare's requirements for reasonable and necessary INPATIENT services [42 CFR 412.3e].: Yes Medical Necessity: Significant Comorbidiites Make Outpatient Treatment Too Risky, Need Close Monitoring Due to Risk of Patient Decompensation, Need For IV Fluids, Need For Continuous Telemetry Monitoring, Need for Nebulizer Therapy and Monitoring of Response, Need for IV Antibiotics, Risk of Complication if Not Cared For in Hospital, Risk of Diagnosis Which Will Require Inpatient Eval/Care/Monitoring 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 I had extensive discussion with patient regardin code status. At the present time she declined any form of resuscitation and want to be a DNR.
[2018-06-11] MEDS: INSULIN LISPRO 100 UNIT/ML 3 ML VIAL SUBCUT SCH ×3 (11:00→21:55)
[2018-06-11] MEDS ORDERED: INSULIN LISPRO 100 UNIT/ML 3 ML VIAL ONE (11:38)
[2018-06-11] MEDS ORDERED: INSULIN LISPRO 100 UNIT/ML 3 ML VIAL SUBCUT ONE ×3 (12:15→19:30)
[2018-06-11] MEDS: CEFEPIME 2 GM/D5W RTU 2 GM/50 ML RTUPB IV SCH ×2 (14:19→22:10)
[2018-06-11] MEDS: ACETAMINOPHEN 325 MG TABLET PO PRN (14:23)
[2018-06-11] MEDS: GABAPENTIN 300 MG CAPSULE PO SCH ×2 (14:24→23:13)
[2018-06-11] MEDS: NORMAL SALINE 1000 ML 1,000 ML IV PRN (17:08)
[2018-06-11] MEDS: NYSTATIN TOPICAL POWDER 15 GM TP SCH ×2 (17:08→23:13)
[2018-06-11] MEDS ORDERED: INSULIN REG, HUMAN 100 UNIT/ML 3 ML VIAL (PYX) ONE (23:00)
[2018-06-11] MEDS ORDERED: INSULIN, REGULAR 100 UNIT/100 ML NORMAL SALINE IV PRN ×2 (23:00)
[2018-06-11] MEDS: DULOXETINE HCL 30 MG CAPSULE.DR PO SCH (23:12)
[2018-06-12 04:51] LABS: ABSOLUTE NEUT (AUTO) 14.9 10^3/uL (1.7-8.2); BASOPHILS % (AUTO) 0.1 % (0-2); EOSINOPHILS % (AUTO) 0.1 % (0-6); HEMATOCRIT 34.1 % (36.0-47.0); HEMOGLOBIN 11.7 g/dL (12.0-15.5); LYMPHOCYTES % (AUTO) 5.8 % (13-45); MEAN CORPUSCULAR HEMOGLOBIN 30.2 pg (27.0-33.4); MEAN CORPUSCULAR HGB CONC 34.1 g/dL (32.0-36.0); MEAN CORPUSCULAR VOLUME 89 fl (80-97); MONOCYTES % (AUTO) 5.8 % (3-13); PLATELET COUNT 412 10^3/uL (150-450); RED BLOOD COUNT 3.86 10^6/uL (3.72-5.28); RED CELL DISTRIBUTION WIDTH 15.5 % (11.5-14.0); SEGMENTED NEUTROPHILS % (AUTO) 88.2 % (42-78); TOTAL CELLS COUNTED % (AUTO) 100 %; WHITE BLOOD COUNT 16.9 10^3/uL (4.0-10.5)
[2018-06-12 05:17] LABS: ANION GAP 6 (5-19); BLOOD UREA NITROGEN 26 mg/dL (7-20); CALCIUM 9.7 mg/dL (8.4-10.2); CARBON DIOXIDE 28 mmol/L (22-30); CHLORIDE 102 mmol/L (98-107); GLUCOSE 279 mg/dL (75-110); POTASSIUM 4.4 mmol/L (3.6-5.0); SODIUM 135.5 mmol/L (137-145)
[2018-06-12] MEDS: GABAPENTIN 300 MG CAPSULE PO SCH ×3 (05:54→22:41)
[2018-06-12] MEDS: CEFEPIME 2 GM/D5W RTU 2 GM/50 ML RTUPB IV SCH ×3 (05:54→22:42)
[2018-06-12] MEDS: PANTOPRAZOLE SODIUM 40 MG TABLET.DR PO SCH (05:55)
[2018-06-12] MEDS ORDERED: VANCOMYCIN HCL 1,000 MG in DEXTROSE 5%-WATER 250 ML IV SCH (10:00)
[2018-06-12] MEDS ORDERED: (PENDING PHARMACY ID) (Canagliflozin [Invokana] 300 MG) PO SCH (10:00)
[2018-06-12] MEDS ORDERED: (PENDING PHARMACY ID) (Linagliptin [Tradjenta] 5 MG) PO SCH (10:00)
[2018-06-12] MEDS: LOSARTAN POTASSIUM 50 MG TABLET PO SCH (10:08)
[2018-06-12] MEDS: INSULIN LISPRO 100 UNIT/ML 3 ML VIAL SUBCUT SCH ×4 (10:08→22:40)
[2018-06-12] MEDS: SITAGLIPTIN PHOSPHATE 50 MG TABLET PO SCH (10:09)
[2018-06-12] MEDS: DULOXETINE HCL 30 MG CAPSULE.DR PO SCH ×2 (10:09→22:40)
[2018-06-12] MEDS: ENOXAPARIN SODIUM INJ 40 MG/0.4 ML DISP.SYRIN SUBCUT SCH ×2 (10:09→10:17)
[2018-06-12] MEDS: NYSTATIN TOPICAL POWDER 15 GM TP SCH ×2 (10:09→22:41)
[2018-06-12] MEDS: VANCOMYCIN HCL 1,000 MG in NORMAL SALINE 250 ML IV SCH ×2 (10:10→23:29)
[2018-06-12] MEDS: FLUTICASONE/UMECLIDIN/VILANTER 100-62.5-25 MCG/DOSE IH SCH (10:10)
[2018-06-12] MEDS: METOPROLOL SUCCINATE 50 MG TAB.SR.24H PO SCH (10:10)
[2018-06-12] MEDS: NORMAL SALINE 1000 ML 1,000 ML IV PRN ×2 (10:11→23:31)
--- NOTE | 2018-06-12 11:44 | PDOC PROGRESS REPORT ---
Subjective Progress Note for:: 06/12/18 Subjective:: Her glycemic control remain a challenge with some improvement on insulin drip. There is difficulty maintain peripheral vascular access. She reported right deltoid region lesion since her last admission and current pain. No fever or chills. No chest pain or difficulty with breathing. Tolerating oral feeding. Reason For Visit: LEFT LOWER LOBE PNEUMONIA,UTI,CHRONIC RENAL Physical Exam Vital Signs: Temp Pulse Resp BP Pulse Ox 97.8 F 95 18 139/79 H 96 06/12/18 08:24 06/12/18 08:24 06/12/18 08:24 06/12/18 08:24 06/12/18 08:24 Intake & Output 06/11/18 06/12/18 06/13/18 06:59 06:59 06:59 Intake Total 2764 Output Total 850 Balance 1914 Weight 106.2 kg General appearance: PRESENT: no acute distress, obese Head exam: PRESENT: atraumatic, normocephalic Eye exam: PRESENT: conjunctiva pink. ABSENT: scleral icterus Ear exam: PRESENT: normal external ear exam Mouth exam: PRESENT: moist Respiratory exam: PRESENT: clear to auscultation [place] Cardiovascular exam: PRESENT: RRR. ABSENT: diastolic murmur, rubs, systolic murmur Vascular exam: ABSENT: pallor GI/Abdominal exam: PRESENT: normal bowel sounds, soft. ABSENT: distended, guarding, mass, organolmegaly, rebound, tenderness Extremities exam: ABSENT: pedal edema Musculoskeletal exam: PRESENT: tenderness - site of right arm lesion sincelast hospitalization Neurological exam: PRESENT: alert, awake, oriented to person, oriented to place, oriented to time, oriented to situation, CN II-XII grossly intact. ABSENT: motor sensory deficit Psychiatric exam: PRESENT: appropriate affect, normal mood. ABSENT: homicidal ideation, suicidal ideation Skin exam: PRESENT: dry, warm, other - there is a likely puncture lesion on r ight deltoid muscle region with horse shoe shaped erythema and tenderness to touch. Results Laboratory Results: 06/12/18 04:27 06/12/18 04:27 06/12/18 06/12/18 04:27 04:27 WBC 16.9 H RBC 3.86 Hgb 11.7 L Hct 34.1 L MCV 89 MCH 30.2 MCHC 34.1 RDW 15.5 H Plt Count 412 Seg Neutrophils % 88.2 H Lymphocytes % 5.8 L Monocytes % 5.8 Eosinophils % 0.1 Basophils % 0.1 Absolute Neutrophils 14.9 H Absolute Lymphocytes 1.0 Absolute Monocytes 1.0 Absolute Eosinophils 0.0 Absolute Basophils 0.0 Sodium 135.5 L Potassium 4.4 Chloride 102 Carbon Dioxide 28 Anion Gap 6 BUN 26 H Creatinine 0.84 Est GFR ( Amer) > 60 Est GFR (Non-Af Amer) > 60 Glucose 279 H Calcium 9.7 06/11/18 06/11/18 04:00 04:00 Creatine Kinase 31 CK-MB (CK-2) 0.39 Troponin I < 0.012 Impressions: Chest X-Ray 06/11/18 00:00 IMPRESSION: Moderate right lower lobar pneumonia. Recommend CR/CT surveillance including at 7-12 weeks following initiation of any clinically warranted therapy. Assessment & Plan - Diagnosis (1) Pneumonia of right lower lobe due to infectious organism Is this a current diagnosis for this admission?: Yes Plan: Continue IV VAncomycin and Cefepime coverage. I will add IV Levofloxacin to antibiotic regimen. Follow up on pending culture findings. (2) Urinary tract infection Qualifiers: Urinary tract infection type: site unspecified Hematuria presence: without hematuria Qualified Code(s): N39.0 - Urinary tract infection, site not specified Is this a current diagnosis for this admission?: Yes (3) Chronic respiratory failure Qualifiers: Respiratory failure complication: hypoxia Qualified Code(s): J96.11 - Chronic respiratory failure with hypoxia Is this a current diagnosis for this admission?: Yes (4) COPD with hypoxia Is this a current diagnosis for this admission?: Yes (5) Diabetes mellitus type 2 in obese Is this a current diagnosis for this admission?: Yes Plan: Maintain on Insulin drip therapy as as we can reestablish vascular access through central line placement. (6) Hypertension Qualifiers: Hypertension type: essential hypertension Qualified Code(s): I10 - Essential (primary) hypertension Is this a current diagnosis for this admission?: Yes (7) Cellulitis of arm, right Is this a current diagnosis for this admission?: Yes Plan: Continue current antibiotic coverage and monitor response. - Time Time Spent with patient: 25-34 minutes Medications reviewed and adjusted accordingly: Yes Anticipated discharge: Home with Homehealth Within: Other - Inpatient Certification Based on my medical assessment, after consideration of the patient's comorbidities, presenting symptoms, or acuity I expect that the services needed warrant INPATIENT care.: Yes I certify that my determination is in accordance with my understanding of Medicare's requirements for reasonable and necessary INPATIENT services [42 CFR 412.3e].: Yes Medical Necessity: Significant Comorbidiites Make Outpatient Treatment Too Risky, Need Close Monitoring Due to Risk of Patient Decompensation, Need For IV Fluids, Need For Continuous Telemetry Monitoring, Need for IV Antibiotics, Risk of Complication if Not Cared For in Hospital, Risk of Diagnosis Which Will Require Inpatient Eval/Care/Monitoring Post Hospital Care: D/C Purchasing Assistant Documentation - Plan Summary Plan Summary: See covering attending physician orders as per above outline care plan.
--- NOTE | 2018-06-12 11:46 | Progress Note ---
Provider Note Provider Note: Patient reported poor sleep pattern since admission and requesting for something to help her to sleep. I will prescribe Melatonin 5 mg po qhs.
[2018-06-12 17:15] LABS: CREATINE KINASE MB 0.99 ng/mL (<4.55)
[2018-06-12 17:16] LABS: TROPONIN I < 0.012 ng/mL
--- NOTE | 2018-06-12 20:12 | EKG REPORT ---
SEVERITY:- OTHERWISE NORMAL ECG - SINUS RHYTHM BORDERLINE LEFT AXIS DEVIATION : Confirmed by: Amy Saldana MD 12-Jun-2018 20:11:05
[2018-06-12] MEDS ORDERED: LIDOCAINE 1% INJ-PF (10 MG/ML) 30 ML SDV ONE (20:15)
[2018-06-12] MEDS ORDERED: HEPARIN SOD (PORCINE) 1,000 UNIT/ML 10 ML VIAL ONE (20:16)
[2018-06-12] MEDS: MELATONIN 5 MG TABLET PO SCH (22:50)
[2018-06-13] MEDS: GABAPENTIN 300 MG CAPSULE PO SCH ×2 (05:16→15:09)
[2018-06-13] MEDS: PANTOPRAZOLE SODIUM 40 MG TABLET.DR PO SCH (05:16)
[2018-06-13] MEDS: CEFEPIME 2 GM/D5W RTU 2 GM/50 ML RTUPB IV SCH ×2 (05:17→15:08)
--- NOTE | 2018-06-13 07:39 | EKG REPORT ---
SEVERITY:- OTHERWISE NORMAL ECG - SINUS RHYTHM LEFT AXIS DEVIATION : Confirmed by: Kevin Morales MD 13-Jun-2018 07:39:25
[2018-06-13] MEDS: INSULIN LISPRO 100 UNIT/ML 3 ML VIAL SUBCUT SCH ×3 (08:54→18:02)
[2018-06-13] MEDS ORDERED: ASPIRIN 81 MG TABLET, ENT COATED PO ONE (10:47)
[2018-06-13] MEDS: ENOXAPARIN SODIUM INJ 40 MG/0.4 ML DISP.SYRIN SUBCUT SCH (10:52)
[2018-06-13] MEDS: NYSTATIN TOPICAL POWDER 15 GM TP SCH (10:53)
[2018-06-13] MEDS: FLUTICASONE/UMECLIDIN/VILANTER 100-62.5-25 MCG/DOSE IH SCH (10:56)
[2018-06-13] MEDS: METOPROLOL SUCCINATE 50 MG TAB.SR.24H PO SCH (11:01)
[2018-06-13] MEDS: SITAGLIPTIN PHOSPHATE 50 MG TABLET PO SCH (11:01)
[2018-06-13] MEDS: LOSARTAN POTASSIUM 50 MG TABLET PO SCH (11:01)
[2018-06-13] MEDS: DULOXETINE HCL 30 MG CAPSULE.DR PO SCH (11:01)
[2018-06-13] MEDS: VANCOMYCIN HCL 1,000 MG in NORMAL SALINE 250 ML IV SCH (11:07)
[2018-06-13] MEDS ORDERED: CLOPIDOGREL BISULFATE 300 MG TABLET PO ONE (11:30)
--- NOTE | 2018-06-13 12:56 | EKG REPORT ---
SEVERITY:- ABNORMAL ECG - SINUS TACHYCARDIA BORDERLINE LEFT AXIS DEVIATION : Confirmed by: Kevin Morales MD 13-Jun-2018 12:55:17
[2018-06-13 13:43] LABS: CREATINE KINASE MB 0.73 ng/mL (<4.55)
[2018-06-13 13:46] LABS: TROPONIN I < 0.012 ng/mL
[2018-06-13] MEDS: NORMAL SALINE 1000 ML 1,000 ML IV PRN (15:09)
[2018-06-13] MEDS: HYDROCODONE/ACETAMINOPHEN 5-325 MG TABLET PO PRN (18:01)
--- NOTE | 2018-06-13 19:54 | PDOC PROGRESS REPORT ---
Subjective Progress Note for:: 06/13/18 Subjective:: Patient is readmitted again, she had chest pain earlier this morning, he twelve- lead EKG was done, it was sinus rhythm there is no acute ST-T wave changeShe was admitted for the management of right lower lobe pneumonia, Which is quite impressive on chest x-ray Reason For Visit: LEFT LOWER LOBE PNEUMONIA,UTI,CHRONIC RENAL Physical Exam Vital Signs: Temp Pulse Resp BP Pulse Ox 97.4 F 82 22 H 143/71 H 98 06/13/18 15:10 06/13/18 15:10 06/13/18 15:10 06/13/18 15:10 06/13/18 15:10 Intake & Output 06/12/18 06/13/18 06/14/18 06:59 06:59 06:59 Intake Total 2764 2799 2674 Output Total 945 668 0717 Balance 1914 2299 1404 Weight 106.2 kg 105.8 kg General appearance: PRESENT: no acute distress Head exam: PRESENT: atraumatic, normocephalic Eye exam: PRESENT: PERRLA Ear exam: PRESENT: normal external ear exam Mouth exam: PRESENT: moist, tongue midline Neck exam: PRESENT: full ROM Respiratory exam: PRESENT: wheezes Cardiovascular exam: PRESENT: +S1, +S2 Pulses: PRESENT: normal dorsalis pedis pul, +2 pedal pulses bilateral Vascular exam: PRESENT: normal capillary refill GI/Abdominal exam: PRESENT: soft Rectal exam: PRESENT: deferred Neurological exam: PRESENT: alert, CN II-XII grossly intact Psychiatric exam: PRESENT: appropriate affect, normal mood Skin exam: PRESENT: dry, intact, warm Results Laboratory Results: 06/12/18 04:27 06/12/18 04:27 06/11/18 05:24 Catheterized Urine Urine Culture - Final C.albicans/C.dubliniensis Mixed Urogenital Lillie 06/11/18 06/11/18 06/12/18 04:00 04:00 16:30 Creatine Kinase 31 29 L CK-MB (CK-2) 0.39 Troponin I < 0.012 06/12/18 06/13/18 06/13/18 16:30 12:38 12:38 Creatine Kinase < 20 L CK-MB (CK-2) 0.99 0.73 Troponin I < 0.012 < 0.012 Impressions: Chest X-Ray 06/11/18 00:00 IMPRESSION: Moderate right lower lobar pneumonia. Recommend CR/CT surveillance including at 7-12 weeks following initiation of any clinically warranted therapy. Assessment & Plan - Diagnosis (1) Right lower lobe pneumonia Qualifiers: Pneumonia type: due to unspecified organism Qualified Code(s): J18.1 - Lobar pneumonia, unspecified organism Is this a current diagnosis for this admission?: Yes Plan: Continue antibiotic (2) Type 2 diabetes mellitus with complication Qualifiers: Diabetes mellitus terminal worker insulin use: with chcf use Qualified Code(s): E11.8 - Type 2 diabetes mellitus with unspecified complications; Z79.4 - nursing home (current) use of insulin Is this a current diagnosis for this admission?: Yes (3) Chronic respiratory failure Qualifiers: Respiratory failure complication: hypoxia and hypercapnia Qualified Code(s): J96.11 - Chronic respiratory failure with hypoxia; J96.12 - Chronic respiratory failure with hypercapnia Is this a current diagnosis for this admission?: Yes
[2018-06-13 20:21] LABS: CREATINE KINASE MB 0.73 ng/mL (<4.55)
[2018-06-13 20:31] LABS: TROPONIN I < 0.012 ng/mL
[2018-06-13] MEDS: IPRATROPIUM/ALBUTEROL 0.5-2.5 MG/3 ML AMPUL NEB PRN (21:35)
[2018-06-13 22:20] LABS: VANCOMYCIN,TROUGH 17.7 ug/mL (5.0-20.0)
[2018-06-14] MEDS: DULOXETINE HCL 30 MG CAPSULE.DR PO SCH ×3 (00:17→23:30)
[2018-06-14] MEDS: INSULIN LISPRO 100 UNIT/ML 3 ML VIAL SUBCUT SCH ×5 (00:29→23:30)
[2018-06-14] MEDS: CEFEPIME 2 GM/D5W RTU 2 GM/50 ML RTUPB IV SCH ×4 (00:29→23:29)
[2018-06-14] MEDS: MELATONIN 5 MG TABLET PO SCH ×2 (00:30→23:30)
[2018-06-14] MEDS: NYSTATIN TOPICAL POWDER 15 GM TP SCH ×3 (00:30→23:31)
[2018-06-14] MEDS: GABAPENTIN 300 MG CAPSULE PO SCH ×4 (00:32→23:31)
[2018-06-14] MEDS: VANCOMYCIN HCL 1,000 MG in NORMAL SALINE 250 ML IV SCH ×2 (00:32→11:47)
[2018-06-14 04:54] LABS: CREATINE KINASE MB 0.56 ng/mL (<4.55)
[2018-06-14 04:56] LABS: TROPONIN I < 0.012 ng/mL
[2018-06-14] MEDS: PANTOPRAZOLE SODIUM 40 MG TABLET.DR PO SCH (06:29)
[2018-06-14] MEDS: IPRATROPIUM/ALBUTEROL 0.5-2.5 MG/3 ML AMPUL NEB PRN (09:43)
[2018-06-14] MEDS: HYDROCODONE/ACETAMINOPHEN 5-325 MG TABLET PO PRN ×2 (10:14→16:18)
[2018-06-14] MEDS: METOPROLOL SUCCINATE 50 MG TAB.SR.24H PO SCH (10:15)
[2018-06-14] MEDS: LOSARTAN POTASSIUM 50 MG TABLET PO SCH (10:15)
[2018-06-14] MEDS: ENOXAPARIN SODIUM INJ 40 MG/0.4 ML DISP.SYRIN SUBCUT SCH (10:16)
[2018-06-14] MEDS: SITAGLIPTIN PHOSPHATE 50 MG TABLET PO SCH (10:16)
[2018-06-14] MEDS: FLUTICASONE/UMECLIDIN/VILANTER 100-62.5-25 MCG/DOSE IH SCH (10:20)
--- NOTE | 2018-06-14 15:08 | Operative Report ---
Bedside Procedure - History of Present Illness History of Present Illness: 72 /y pt with pneumonia, rt sided needs venous access due to inablity to place iv. Indication for Procedure: right sided pneumonia Date: 06/14/18 Surgeon: SABINO HAYDEN - Central Line Right Internal jugular Consent obtained: Yes Central line pre-insertion: Sterile PPE donned Central line size (Fr.): 16 Central line lumen type: Triple Anesthetic type: 1% Lidocaine mL's of anesthesia: 5 Ultrasound guided: Yes CM at insertion site: 14 Line secured with sutures: Yes Central line post-insertion: Blood return from lumens, Biopatch applied, Sutured, Sterile dressing applied, Position confirmed w/ CXR Number of attempts: 3 - attempt at rt subclavian and rt femoral unsucessful
--- NOTE | 2018-06-14 15:27 | RADIOLOGY REPORT (SQ) ---
EXAM DESCRIPTION: CHEST SINGLE VIEW COMPLETED DATE/TIME: 06/14/2018 3:18 pm REASON FOR STUDY: Central line placement. Central line is placed COMPARISON: 06/11/2018 EXAM PARAMETERS: NUMBER OF VIEWS: One view. TECHNIQUE: Single frontal radiographic view of the chest acquired. RADIATION DOSE: NA LIMITATIONS: None. FINDINGS: LUNGS AND PLEURA: Redemonstrated heterogeneous opacity of the right lung base. MEDIASTINUM AND HILAR STRUCTURES: No masses. Contour normal. HEART AND VASCULAR STRUCTURES: Heart normal in size. Normal vasculature. BONES: No acute findings. HARDWARE: None in the chest. OTHER: Interval placement of right neck vascular catheter, tip projecting near the superior cavoatria l junction. IMPRESSION: Interval placement of right neck vascular catheter, tip projecting near the superior cav oatrial junction. TECHNICAL DOCUMENTATION: JOB ID: [id number] [employer]- All Rights Reserved Reading location - IP/workstation name: [email or web address]
[2018-06-14] MEDS ORDERED: HYDROCODONE/ACETAMINOPHEN 5-325 MG TABLET PO ONE (17:30)
--- NOTE | 2018-06-14 19:16 | PDOC PROGRESS REPORT ---
Subjective Progress Note for:: 06/14/18 Subjective:: She had a central line placement today ,she complain of pain at the site of placement of the central line Reason For Visit: LEFT LOWER LOBE PNEUMONIA,UTI,CHRONIC RENAL Physical Exam Vital Signs: Temp Pulse Resp BP Pulse Ox 97.7 F 65 21 H 110/49 L 99 06/14/18 15:31 06/14/18 15:31 06/14/18 15:31 06/14/18 15:31 06/14/18 15:31 Intake & Output 06/13/18 06/14/18 06/15/18 06:59 06:59 06:59 Intake Total 2799 4098 1960 Output Total 500 1920 Balance 2299 2178 1960 Weight 105.8 kg 108.9 kg General appearance: PRESENT: no acute distress Eye exam: PRESENT: PERRLA Respiratory exam: PRESENT: wheezes Cardiovascular exam: PRESENT: +S1, +S2 GI/Abdominal exam: PRESENT: soft Neurological exam: PRESENT: alert Results Laboratory Results: 06/12/18 04:27 06/12/18 04:27 06/11/18 05:24 Catheterized Urine Urine Culture - Final C.albicans/C.dubliniensis Mixed Urogenital Lillie 06/11/18 06/11/18 06/12/18 04:00 04:00 16:30 Creatine Kinase 31 29 L CK-MB (CK-2) 0.39 Troponin I < 0.012 06/12/18 06/13/18 06/13/18 16:30 12:38 12:38 Creatine Kinase < 20 L CK-MB (CK-2) 0.99 0.73 Troponin I < 0.012 < 0.012 06/13/18 06/13/18 06/14/18 19:35 19:35 04:10 Creatine Kinase < 20 L < 20 L CK-MB (CK-2) 0.73 Troponin I < 0.012 06/14/18 04:10 Creatine Kinase CK-MB (CK-2) 0.56 Troponin I < 0.012 Impressions: Chest X-Ray 06/14/18 00:00 IMPRESSION: Interval placement of right neck vascular catheter, tip projecting near the superior cavoatrial junction. Assessment & Plan - Diagnosis (1) Right lower lobe pneumonia Qualifiers: Pneumonia type: due to unspecified organism Qualified Code(s): J18.1 - Lobar pneumonia, unspecified organism Is this a current diagnosis for this admission?: Yes Plan: Continue antibiotic (2) Type 2 diabetes mellitus with complication Qualifiers: Diabetes mellitus chcf insulin use: with terminal operations supervisor use Qualified Code(s): E11.8 - Type 2 diabetes mellitus with unspecified complications; Z79.4 - marine oil terminal superintendent (current) use of insulin Is this a current diagnosis for this admission?: Yes (3) Chronic respiratory failure Qualifiers: Respiratory failure complication: hypoxia and hypercapnia Qualified Code(s): J96.11 - Chronic respiratory failure with hypoxia; J96.12 - Chronic respiratory failure with hypercapnia Is this a current diagnosis for this admission?: Yes
[2018-06-14 20:08] LABS: HEMATOCRIT 31.4 % (36.0-47.0); HEMOGLOBIN 10.6 g/dL (12.0-15.5); MEAN CORPUSCULAR HEMOGLOBIN 30.5 pg (27.0-33.4); MEAN CORPUSCULAR HGB CONC 33.8 g/dL (32.0-36.0); MEAN CORPUSCULAR VOLUME 90 fl (80-97); PLATELET COUNT 463 10^3/uL (150-450); RED BLOOD COUNT 3.49 10^6/uL (3.72-5.28); WHITE BLOOD COUNT 8.6 10^3/uL (4.0-10.5)
[2018-06-14 20:25] LABS: ALANINE AMINOTRANSFERASE 28 U/L (9-52); ALBUMIN 2.8 g/dL (3.5-5.0); ALKALINE PHOSPHATASE 86 U/L (38-126); ASPARTATE AMINO TRANSFERASE 16 U/L (14-36); BILIRUBIN,DIRECT 0.4 mg/dL (0.0-0.4); BILIRUBIN,TOTAL 0.5 mg/dL (0.2-1.3); BLOOD UREA NITROGEN 13 mg/dL (7-20); CALCIUM 8.7 mg/dL (8.4-10.2); CARBON DIOXIDE 27 mmol/L (22-30); GLUCOSE 223 mg/dL (75-110); POTASSIUM 4.2 mmol/L (3.6-5.0)
[2018-06-14 20:30] LABS: CHLORIDE 104 mmol/L (98-107); SODIUM 134.8 mmol/L (137-145)
[2018-06-14 20:31] LABS: ANION GAP 4 (5-19)
[2018-06-14 20:37] LABS: ABSOLUTE LYMPHOCYTES# (MANUAL) 1.4 10^3/uL (0.5-4.7); ABSOLUTE MONOCYTES # (MANUAL) 0.8 10^3/uL (0.1-1.4); ABSOLUTE NEUTROPHILS# (MANUAL) 6.2 10^3/uL (1.7-8.2); BASOPHILS % (MANUAL) 0 % (0-2); EOSINOPHILS % (MANUAL) 3 % (0-6); LYMPHOCYTES % (MANUAL) 16 % (13-45); MONOCYTES % (MANUAL) 9 % (3-13); SEGMENTED NEUTROPHILS % (MAN) 72 % (42-78); TOTAL CELLS COUNTED 100
[2018-06-14 20:38] LABS: ANISOCYTOSIS 1+; PLATELET COMMENT INCREASED; TOXIC GRANULATION SLIGHT
[2018-06-15] MEDS: VANCOMYCIN HCL 1,000 MG in NORMAL SALINE 250 ML IV SCH ×3 (01:14→22:49)
[2018-06-15] MEDS: HYDROCODONE/ACETAMINOPHEN 5-325 MG TABLET PO PRN ×3 (01:15→17:39)
[2018-06-15] MEDS: GABAPENTIN 300 MG CAPSULE PO SCH ×3 (05:00→22:50)
[2018-06-15] MEDS: PANTOPRAZOLE SODIUM 40 MG TABLET.DR PO SCH (05:00)
[2018-06-15] MEDS: CEFEPIME 2 GM/D5W RTU 2 GM/50 ML RTUPB IV SCH ×3 (05:00→22:48)
[2018-06-15 05:23] LABS: ABSOLUTE EOSINOPHILS # (AUTO) 0.2 10^3/uL (0.0-0.6); ABSOLUTE LYMPHOCYTES (AUTO) 1.2 10^3/uL (0.5-4.7); ABSOLUTE MONOCYTES (AUTO) 0.6 10^3/uL (0.1-1.4); ABSOLUTE NEUT (AUTO) 9.7 10^3/uL (1.7-8.2); BASOPHILS % (AUTO) 0.4 % (0-2); EOSINOPHILS % (AUTO) 1.5 % (0-6); HEMOGLOBIN 9.6 g/dL (12.0-15.5); LYMPHOCYTES % (AUTO) 10.4 % (13-45); MEAN CORPUSCULAR HEMOGLOBIN 30.1 pg (27.0-33.4); MEAN CORPUSCULAR HGB CONC 33.2 g/dL (32.0-36.0); MEAN CORPUSCULAR VOLUME 91 fl (80-97); MONOCYTES % (AUTO) 5.3 % (3-13); PLATELET COUNT 374 10^3/uL (150-450); RED BLOOD COUNT 3.19 10^6/uL (3.72-5.28); SEGMENTED NEUTROPHILS % (AUTO) 82.4 % (42-78); TOTAL CELLS COUNTED % (AUTO) 100 %; WHITE BLOOD COUNT 11.8 10^3/uL (4.0-10.5)
[2018-06-15 05:51] LABS: ALANINE AMINOTRANSFERASE 33 U/L (9-52); ALBUMIN 2.5 g/dL (3.5-5.0); ALKALINE PHOSPHATASE 78 U/L (38-126); ASPARTATE AMINO TRANSFERASE 14 U/L (14-36); BILIRUBIN,DIRECT 0.3 mg/dL (0.0-0.4); BILIRUBIN,TOTAL 0.4 mg/dL (0.2-1.3); BLOOD UREA NITROGEN 14 mg/dL (7-20); CALCIUM 8.6 mg/dL (8.4-10.2); CARBON DIOXIDE 26 mmol/L (22-30); CHLORIDE 108 mmol/L (98-107); GLUCOSE 169 mg/dL (75-110); POTASSIUM 4.4 mmol/L (3.6-5.0); SODIUM 136.9 mmol/L (137-145); TOTAL PROTEIN 5.5 g/dL (6.3-8.2)
[2018-06-15 06:00] LABS: ANION GAP 3 (5-19)
[2018-06-15] MEDS: INSULIN LISPRO 100 UNIT/ML 3 ML VIAL SUBCUT SCH ×4 (08:51→22:48)
[2018-06-15] MEDS: IPRATROPIUM/ALBUTEROL 0.5-2.5 MG/3 ML AMPUL NEB PRN ×2 (09:17→16:24)
[2018-06-15] MEDS: SITAGLIPTIN PHOSPHATE 50 MG TABLET PO SCH (10:19)
[2018-06-15] MEDS: METOPROLOL SUCCINATE 50 MG TAB.SR.24H PO SCH (10:19)
[2018-06-15] MEDS: LOSARTAN POTASSIUM 50 MG TABLET PO SCH (10:19)
[2018-06-15] MEDS: FLUTICASONE/UMECLIDIN/VILANTER 100-62.5-25 MCG/DOSE IH SCH (10:19)
[2018-06-15] MEDS: DULOXETINE HCL 30 MG CAPSULE.DR PO SCH ×2 (10:19→22:50)
[2018-06-15] MEDS: ENOXAPARIN SODIUM INJ 40 MG/0.4 ML DISP.SYRIN SUBCUT SCH (10:20)
[2018-06-15] MEDS: NYSTATIN TOPICAL POWDER 15 GM TP SCH ×2 (10:20→22:51)
--- NOTE | 2018-06-15 18:45 | PDOC PROGRESS REPORT ---
Subjective Progress Note for:: 06/15/18 Subjective:: patient is alert Reason For Visit: LEFT LOWER LOBE PNEUMONIA,UTI,CHRONIC RENAL Physical Exam Vital Signs: Temp Pulse Resp BP Pulse Ox 98.1 F 79 16 108/62 97 06/15/18 16:16 06/15/18 16:25 06/15/18 16:25 06/15/18 16:16 06/15/18 16:25 Intake & Output 06/14/18 06/15/18 06/16/18 06:59 06:59 06:59 Intake Total 4098 2310 1287 Output Total 1920 900 Balance 2178 2310 387 Weight 108.9 kg 109.5 kg General appearance: PRESENT: no acute distress Head exam: PRESENT: atraumatic, normocephalic Eye exam: PRESENT: PERRLA Ear exam: PRESENT: normal external ear exam Mouth exam: PRESENT: moist, tongue midline Neck exam: PRESENT: full ROM Respiratory exam: PRESENT: rhonchi Cardiovascular exam: PRESENT: RRR, +S1, +S2 Vascular exam: PRESENT: normal capillary refill GI/Abdominal exam: PRESENT: normal bowel sounds, soft Rectal exam: PRESENT: deferred Neurological exam: PRESENT: alert, CN II-XII grossly intact Psychiatric exam: PRESENT: appropriate affect, normal mood Skin exam: PRESENT: dry, intact, warm. ABSENT: cyanosis, rash Results Laboratory Results: 06/15/18 05:06 06/15/18 05:06 06/14/18 06/14/18 06/15/18 19:55 19:55 05:06 WBC 8.6 11.8 H RBC 3.49 L 3.19 L Hgb 10.6 L 9.6 L Hct 31.4 L 29.0 L MCV 90 91 MCH 30.5 30.1 MCHC 33.8 33.2 RDW 16.0 H 16.0 H Plt Count 463 H 374 Seg Neutrophils % Not Reportable 82.4 H Lymphocytes % Not Reportable 10.4 L Monocytes % Not Reportable 5.3 Eosinophils % Not Reportable 1.5 Basophils % Not Reportable 0.4 Absolute Neutrophils Not Reportable 9.7 H Absolute Lymphocytes Not Reportable 1.2 Absolute Monocytes Not Reportable 0.6 Absolute Eosinophils Not Reportable 0.2 Absolute Basophils Not Reportable 0.0 Sodium 134.8 L Potassium 4.2 Chloride 104 Carbon Dioxide 27 Anion Gap 4 L BUN 13 Creatinine 0.81 Est GFR ( Amer) > 60 Est GFR (Non-Af Amer) > 60 Glucose 223 H Calcium 8.7 Total Bilirubin 0.5 AST 16 ALT 28 Alkaline Phosphatase 86 Total Protein 6.0 L Albumin 2.8 L 06/15/18 05:06 WBC RBC Hgb Hct MCV MCH MCHC RDW Plt Count Seg Neutrophils % Lymphocytes % Monocytes % Eosinophils % Basophils % Absolute Neutrophils Absolute Lymphocytes Absolute Monocytes Absolute Eosinophils Absolute Basophils Sodium 136.9 L Potassium 4.4 Chloride 108 H Carbon Dioxide 26 Anion Gap 3 L BUN 14 Creatinine 0.91 Est GFR ( Amer) > 60 Est GFR (Non-Af Amer) > 60 Glucose 169 H Calcium 8.6 Total Bilirubin 0.4 AST 14 ALT 33 Alkaline Phosphatase 78 Total Protein 5.5 L Albumin 2.5 L 06/12/18 22:44 Sputum Gram Stain - Final 06/11/18 06/11/18 06/12/18 04:00 04:00 16:30 Creatine Kinase 31 29 L CK-MB (CK-2) 0.39 Troponin I < 0.012 06/12/18 06/13/18 06/13/18 16:30 12:38 12:38 Creatine Kinase < 20 L CK-MB (CK-2) 0.99 0.73 Troponin I < 0.012 < 0.012 06/13/18 06/13/18 06/14/18 19:35 19:35 04:10 Creatine Kinase < 20 L < 20 L CK-MB (CK-2) 0.73 Troponin I < 0.012 06/14/18 04:10 Creatine Kinase CK-MB (CK-2) 0.56 Troponin I < 0.012 Impressions: Chest X-Ray 06/14/18 00:00 IMPRESSION: Interval placement of right neck vascular catheter, tip projecting near the superior cavoatrial junction. Assessment & Plan - Diagnosis (1) Right lower lobe pneumonia Qualifiers: Pneumonia type: due to unspecified organism Qualified Code(s): J18.1 - Lobar pneumonia, unspecified organism Is this a current diagnosis for this admission?: Yes Plan: Continue antibiotic (2) Type 2 diabetes mellitus with complication Qualifiers: Diabetes mellitus halfway insulin use: with halfway use Qualified Code(s): E11.8 - Type 2 diabetes mellitus with unspecified complications; Z79.4 - intermediate (current) use of insulin Is this a current diagnosis for this admission?: Yes (3) Chronic respiratory failure Qualifiers: Respiratory failure complication: hypoxia and hypercapnia Qualified Code(s): J96.11 - Chronic respiratory failure with hypoxia; J96.12 - Chronic respiratory failure with hypercapnia Is this a current diagnosis for this admission?: Yes
[2018-06-15] MEDS: MELATONIN 5 MG TABLET PO SCH (22:50)
[2018-06-15] MEDS: ACETAMINOPHEN 325 MG TABLET PO PRN (23:00)
[2018-06-16] MEDS: GABAPENTIN 300 MG CAPSULE PO SCH ×3 (05:50→21:15)
[2018-06-16] MEDS: PANTOPRAZOLE SODIUM 40 MG TABLET.DR PO SCH (05:50)
[2018-06-16] MEDS: HYDROCODONE/ACETAMINOPHEN 5-325 MG TABLET PO PRN ×2 (05:52→12:41)
[2018-06-16] MEDS: CEFEPIME 2 GM/D5W RTU 2 GM/50 ML RTUPB IV SCH ×3 (05:53→21:13)
[2018-06-16] MEDS: INSULIN LISPRO 100 UNIT/ML 3 ML VIAL SUBCUT SCH ×4 (09:04→21:13)
[2018-06-16] MEDS: LOSARTAN POTASSIUM 50 MG TABLET PO SCH (09:04)
[2018-06-16] MEDS: METOPROLOL SUCCINATE 50 MG TAB.SR.24H PO SCH (09:05)
[2018-06-16] MEDS: ENOXAPARIN SODIUM INJ 40 MG/0.4 ML DISP.SYRIN SUBCUT SCH (09:05)
[2018-06-16] MEDS: SITAGLIPTIN PHOSPHATE 50 MG TABLET PO SCH (09:05)
[2018-06-16] MEDS: DULOXETINE HCL 30 MG CAPSULE.DR PO SCH ×2 (09:05→21:14)
[2018-06-16] MEDS: NYSTATIN TOPICAL POWDER 15 GM TP SCH ×2 (09:05→21:15)
[2018-06-16] MEDS: FLUTICASONE/UMECLIDIN/VILANTER 100-62.5-25 MCG/DOSE IH SCH (09:06)
[2018-06-16] MEDS: VANCOMYCIN HCL 1,000 MG in NORMAL SALINE 250 ML IV SCH ×2 (09:06→22:18)
[2018-06-16] MEDS: NORMAL SALINE 1000 ML 1,000 ML IV PRN (12:41)
[2018-06-16] MEDS: IPRATROPIUM/ALBUTEROL 0.5-2.5 MG/3 ML AMPUL NEB PRN (13:22)
[2018-06-16] MEDS: ACETAMINOPHEN 325 MG TABLET PO PRN (14:07)
[2018-06-16] MEDS: MELATONIN 5 MG TABLET PO SCH (21:15)
--- NOTE | 2018-06-16 22:54 | PDOC PROGRESS REPORT ---
Subjective Progress Note for:: 06/16/18 Subjective:: Patient was seen by the bedside, the sputum culture grew Staphylococcus aureus sensitive to ceftriaxone Reason For Visit: LEFT LOWER LOBE PNEUMONIA,UTI,CHRONIC RENAL Physical Exam Vital Signs: Temp Pulse Resp BP Pulse Ox 98.4 F 57 L 19 134/76 H 94 06/16/18 19:44 06/16/18 19:44 06/16/18 19:44 06/16/18 19:44 06/16/18 19:44 Intake & Output 06/15/18 06/16/18 06/17/18 06:59 06:59 06:59 Intake Total 2310 2829 1177 Output Total 900 1000 Balance 2310 1929 177 Weight 109.5 kg 115.3 kg General appearance: PRESENT: no acute distress Eye exam: PRESENT: PERRLA Respiratory exam: PRESENT: rhonchi Cardiovascular exam: PRESENT: +S1, +S2 GI/Abdominal exam: PRESENT: soft Neurological exam: PRESENT: alert, CN II-XII grossly intact Results Laboratory Results: 06/15/18 05:06 06/15/18 05:06 06/11/18 09:15 Blood Blood Culture - Final NO GROWTH IN 5 DAYS 06/11/18 09:00 Blood Blood Culture - Final NO GROWTH IN 5 DAYS 06/12/18 22:44 Sputum Gram Stain - Final 06/12/18 22:44 Sputum Sputum Culture - Final Staphylococcus Aureus C.albicans/C.dubliniensis Normal Lillie Absent 06/11/18 06/11/18 06/12/18 04:00 04:00 16:30 Creatine Kinase 31 29 L CK-MB (CK-2) 0.39 Troponin I < 0.012 06/12/18 06/13/18 06/13/18 16:30 12:38 12:38 Creatine Kinase < 20 L CK-MB (CK-2) 0.99 0.73 Troponin I < 0.012 < 0.012 06/13/18 06/13/18 06/14/18 19:35 19:35 04:10 Creatine Kinase < 20 L < 20 L CK-MB (CK-2) 0.73 Troponin I < 0.012 06/14/18 04:10 Creatine Kinase CK-MB (CK-2) 0.56 Troponin I < 0.012 Impressions: Chest X-Ray 06/14/18 00:00 IMPRESSION: Interval placement of right neck vascular catheter, tip projecting near the superior cavoatrial junction. 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
[2018-06-16] MEDS ORDERED: CEFTRIAXONE 1 GM/D5W RTU 1 GM/50 ML RTUPB IV ONE (23:30)
--- NOTE | 2018-06-16 23:37 | RADIOLOGY REPORT (SQ) ---
EXAM DESCRIPTION: XR CHEST 1 VIEW COMPLETED DATE/TME: 06/16/2018 00:00 CLINICAL HISTORY: 72 years, Female, pneumonia COMPARISON: X-ray chest 06/14/2018 NUMBER OF VIEWS: TECHNIQUE: LIMITATIONS: None. FINDINGS: There is infiltrate at the right lung base, compatible with pneumonia. The right-sided central venous line is unchanged in position, with its tip at the junction of the superior vena cava and right atrium. The heart and mediastinum are unremarkable. Pulmonary vascularity appears normal. There is no significant change, as compared with the prior x-ray. IMPRESSION: Right basilar pneumonia. copyright 2010 [employer]- All Rights Reserved
[2018-06-17] MEDS: HYDROCODONE/ACETAMINOPHEN 5-325 MG TABLET PO PRN ×3 (01:12→20:55)
[2018-06-17] MEDS: GABAPENTIN 300 MG CAPSULE PO SCH ×3 (05:09→21:28)
[2018-06-17] MEDS: PANTOPRAZOLE SODIUM 40 MG TABLET.DR PO SCH (05:09)
[2018-06-17] MEDS: CEFTRIAXONE 1 GM/D5W RTU 1 GM/50 ML RTUPB IV SCH (09:07)
[2018-06-17] MEDS: DULOXETINE HCL 30 MG CAPSULE.DR PO SCH ×2 (09:08→21:28)
[2018-06-17] MEDS: SITAGLIPTIN PHOSPHATE 50 MG TABLET PO SCH (09:08)
[2018-06-17] MEDS: INSULIN LISPRO 100 UNIT/ML 3 ML VIAL SUBCUT SCH ×4 (09:08→21:29)
[2018-06-17] MEDS: LOSARTAN POTASSIUM 50 MG TABLET PO SCH (09:08)
[2018-06-17] MEDS: METOPROLOL SUCCINATE 50 MG TAB.SR.24H PO SCH (09:09)
[2018-06-17] MEDS: FLUTICASONE/UMECLIDIN/VILANTER 100-62.5-25 MCG/DOSE IH SCH (09:09)
[2018-06-17] MEDS: NYSTATIN TOPICAL POWDER 15 GM TP SCH ×2 (09:12→21:29)
[2018-06-17] MEDS: ENOXAPARIN SODIUM INJ 40 MG/0.4 ML DISP.SYRIN SUBCUT SCH (09:12)
[2018-06-17] MEDS: IPRATROPIUM/ALBUTEROL 0.5-2.5 MG/3 ML AMPUL NEB PRN (13:05)
[2018-06-17] MEDS: ACETAMINOPHEN 325 MG TABLET PO PRN (17:41)
[2018-06-17] MEDS: MELATONIN 5 MG TABLET PO SCH (21:29)
[2018-06-17] MEDS ORDERED: CEFTRIAXONE 1 GM/D5W RTU 1 GM/50 ML RTUPB IV SCH (22:00)
--- NOTE | 2018-06-17 22:44 | PDOC PROGRESS REPORT ---
Subjective Progress Note for:: 06/17/18 Subjective:: She has staph aureus pneumonia Reason For Visit: LEFT LOWER LOBE PNEUMONIA,UTI,CHRONIC RENAL Physical Exam Vital Signs: Temp Pulse Resp BP Pulse Ox 98.5 F 78 18 106/42 L 95 06/17/18 19:21 06/17/18 19:21 06/17/18 19:21 06/17/18 19:21 06/17/18 19:21 Intake & Output 06/16/18 06/17/18 06/18/18 06:59 06:59 06:59 Intake Total 2829 2497 1886 Output Total 900 1400 2000 Balance 1929 1097 -114 Weight 115.3 kg 112.4 kg General appearance: PRESENT: no acute distress Eye exam: PRESENT: PERRLA Respiratory exam: PRESENT: rhonchi Cardiovascular exam: PRESENT: +S1, +S2 GI/Abdominal exam: PRESENT: soft Neurological exam: PRESENT: alert Results Laboratory Results: 06/15/18 05:06 06/15/18 05:06 06/11/18 06/11/18 06/12/18 04:00 04:00 16:30 Creatine Kinase 31 29 L CK-MB (CK-2) 0.39 Troponin I < 0.012 06/12/18 06/13/18 06/13/18 16:30 12:38 12:38 Creatine Kinase < 20 L CK-MB (CK-2) 0.99 0.73 Troponin I < 0.012 < 0.012 06/13/18 06/13/18 06/14/18 19:35 19:35 04:10 Creatine Kinase < 20 L < 20 L CK-MB (CK-2) 0.73 Troponin I < 0.012 06/14/18 04:10 Creatine Kinase CK-MB (CK-2) 0.56 Troponin I < 0.012 Impressions: Chest X-Ray 06/16/18 00:00 IMPRESSION: Right basilar pneumonia. copyright 2011 [employer]- All Rights Reserved Assessment & Plan - Diagnosis (1) Right lower lobe pneumonia Qualifiers: Pneumonia type: due to methicillin-sensitive Staphylococcus aureus (MSSA) Qualified Code(s): J15.211 - Pneumonia due to Methicillin susceptible Staphylococcus aureus Is this a current diagnosis for this admission?: Yes Plan: Continue IV antibiotic (2) Type 2 diabetes mellitus with complication Qualifiers: Diabetes mellitus prison insulin use: with intermediate designer use Qualified Code(s): E11.8 - Type 2 diabetes mellitus with unspecified complications; Z79.4 - custodial (current) use of insulin Is this a current diagnosis for this admission?: Yes (3) Chronic respiratory failure Qualifiers: Respiratory failure complication: hypoxia and hypercapnia Qualified Code(s): J96.11 - Chronic respiratory failure with hypoxia; J96.12 - Chronic respiratory failure with hypercapnia Is this a current diagnosis for this admission?: Yes
[2018-06-18] MEDS: HYDROCODONE/ACETAMINOPHEN 5-325 MG TABLET PO PRN ×2 (03:55→13:54)
[2018-06-18] MEDS: GABAPENTIN 300 MG CAPSULE PO SCH ×3 (05:49→21:50)
[2018-06-18] MEDS: PANTOPRAZOLE SODIUM 40 MG TABLET.DR PO SCH (05:49)
[2018-06-18] MEDS: INSULIN LISPRO 100 UNIT/ML 3 ML VIAL SUBCUT SCH ×4 (08:31→21:51)
[2018-06-18] MEDS: CEFTRIAXONE 1 GM/D5W RTU 1 GM/50 ML RTUPB IV SCH (10:34)
[2018-06-18] MEDS: ENOXAPARIN SODIUM INJ 40 MG/0.4 ML DISP.SYRIN SUBCUT SCH (10:34)
[2018-06-18] MEDS: LOSARTAN POTASSIUM 50 MG TABLET PO SCH (10:35)
[2018-06-18] MEDS: METOPROLOL SUCCINATE 50 MG TAB.SR.24H PO SCH (10:35)
[2018-06-18] MEDS: DULOXETINE HCL 30 MG CAPSULE.DR PO SCH ×2 (10:35→21:51)
[2018-06-18] MEDS: SITAGLIPTIN PHOSPHATE 50 MG TABLET PO SCH (10:35)
[2018-06-18] MEDS: NYSTATIN TOPICAL POWDER 15 GM TP SCH ×2 (10:36→17:06)
[2018-06-18] MEDS: FLUTICASONE/UMECLIDIN/VILANTER 100-62.5-25 MCG/DOSE IH SCH (10:36)
[2018-06-18] MEDS: ALBUTEROL SULFATE HFA (90 MCG/PUFF) 200 PUFF/8.5 GM MDI IH PRN (10:39)
[2018-06-18] MEDS: NORMAL SALINE 1000 ML 1,000 ML IV PRN (11:39)
[2018-06-18] MEDS: IPRATROPIUM/ALBUTEROL 0.5-2.5 MG/3 ML AMPUL NEB PRN (16:16)
[2018-06-18] MEDS: ACETAMINOPHEN 325 MG TABLET PO PRN (20:16)
--- NOTE | 2018-06-18 21:27 | PDOC PROGRESS REPORT ---
Subjective Progress Note for:: 06/18/18 Subjective:: She has hemoptysis Reason For Visit: LEFT LOWER LOBE PNEUMONIA,UTI,CHRONIC RENAL Physical Exam Vital Signs: Temp Pulse Resp BP Pulse Ox 99.6 F 88 20 142/75 H 96 06/18/18 20:48 06/18/18 20:48 06/18/18 20:48 06/18/18 20:48 06/18/18 20:48 Intake & Output 06/17/18 06/18/18 06/19/18 06:59 06:59 06:59 Intake Total 2497 2286 1608 Output Total 1400 3700 930 Balance 1097 -1414 678 Weight 112.4 kg 113.9 kg General appearance: PRESENT: no acute distress Eye exam: PRESENT: PERRLA Respiratory exam: PRESENT: wheezes Cardiovascular exam: PRESENT: +S1, +S2 GI/Abdominal exam: PRESENT: soft Neurological exam: PRESENT: alert Results Laboratory Results: 06/15/18 05:06 06/15/18 05:06 06/11/18 06/11/18 06/12/18 04:00 04:00 16:30 Creatine Kinase 31 29 L CK-MB (CK-2) 0.39 Troponin I < 0.012 06/12/18 06/13/18 06/13/18 16:30 12:38 12:38 Creatine Kinase < 20 L CK-MB (CK-2) 0.99 0.73 Troponin I < 0.012 < 0.012 06/13/18 06/13/18 06/14/18 19:35 19:35 04:10 Creatine Kinase < 20 L < 20 L CK-MB (CK-2) 0.73 Troponin I < 0.012 06/14/18 04:10 Creatine Kinase CK-MB (CK-2) 0.56 Troponin I < 0.012 Impressions: Chest X-Ray 06/16/18 00:00 IMPRESSION: Right basilar pneumonia. copyright 2011 [employer]- All Rights Reserved Assessment & Plan - Diagnosis (1) Right lower lobe pneumonia Qualifiers: Pneumonia type: due to methicillin-sensitive Staphylococcus aureus (MSSA) Qualified Code(s): J15.211 - Pneumonia due to Methicillin susceptible Staphylococcus aureus Is this a current diagnosis for this admission?: Yes (2) Type 2 diabetes mellitus with complication Qualifiers: Diabetes mellitus [facility] insulin use: with tank terminal gauger use Qualified Code(s): E11.8 - Type 2 diabetes mellitus with unspecified complications; Z79.4 - tank terminal gauger (current) use of insulin Is this a current diagnosis for this admission?: Yes (3) Chronic respiratory failure Qualifiers: Respiratory failure complication: hypoxia and hypercapnia Qualified Code(s): J96.11 - Chronic respiratory failure with hypoxia; J96.12 - Chronic respiratory failure with hypercapnia Is this a current diagnosis for this admission?: Yes (4) Hemoptysis Is this a current diagnosis for this admission?: Yes Plan: She has staph aureus pneumonia, the hemoptysis could be from the staph aureus pneumonia, CT chest will be obtained without contrast
[2018-06-18] MEDS: MELATONIN 5 MG TABLET PO SCH (21:50)
--- NOTE | 2018-06-18 23:50 | RADIOLOGY REPORT (SQ) ---
EXAM DESCRIPTION: CT CHEST WITHOUT IV CONTRAST COMPLETED DATE/TME: 06/18/2018 00:00 CLINICAL HISTORY: 73 years Female, hemoptysis Comparison: None. Technique: No contrast. Coronal and sagittal reformat. This exam was performed according to our departmental dose-optimization program, which includes automated exposure control, adjustment of the mA and/or kV according to patient size and/or use of iterative reconstruction technique. [facility]: Dose Right [facility]: CareDose [facility]: Dose Right [facility]: Teradose 4D [facility]: [employer] LIMITATIONS: None Findings: Adequate appearing right jugular central line. Moderate consolidative right lower lobe. Small pleural-based opacity of the lingula. Mild reticulonodular opacities of the right upper lobe. Minimal right pleural effusion. Coronary arterial calcification. Atherosclerotic vascular disease. Moderate splenomegaly. Mild mediastinal lymphadenopathy. Unenhanced inferior neck, axillae, airway, heart, vasculature, upper abdomen, and musculoskeleton appear otherwise unremarkable. Impression: 1. Moderate multifocal pneumonia, predominantly right lower lobe. Recommend CR/CT surveillance including at 7-12 weeks following initiation of any clinically warranted therapy. 2. Moderate splenomegaly.
[2018-06-19] MEDS: HYDROCODONE/ACETAMINOPHEN 5-325 MG TABLET PO PRN ×3 (06:21→21:24)
[2018-06-19] MEDS: GABAPENTIN 300 MG CAPSULE PO SCH ×3 (06:22→21:24)
[2018-06-19] MEDS: PANTOPRAZOLE SODIUM 40 MG TABLET.DR PO SCH (06:22)
[2018-06-19 06:39] LABS: ABSOLUTE EOSINOPHILS # (AUTO) 0.1 10^3/uL (0.0-0.6); ABSOLUTE MONOCYTES (AUTO) 0.6 10^3/uL (0.1-1.4); ABSOLUTE NEUT (AUTO) 3.3 10^3/uL (1.7-8.2); BASOPHILS % (AUTO) 0.6 % (0-2); EOSINOPHILS % (AUTO) 2.4 % (0-6); HEMATOCRIT 25.6 % (36.0-47.0); HEMOGLOBIN 8.8 g/dL (12.0-15.5); LYMPHOCYTES % (AUTO) 19.1 % (13-45); MEAN CORPUSCULAR HEMOGLOBIN 30.9 pg (27.0-33.4); MEAN CORPUSCULAR HGB CONC 34.6 g/dL (32.0-36.0); MEAN CORPUSCULAR VOLUME 89 fl (80-97); MONOCYTES % (AUTO) 11.4 % (3-13); PLATELET COUNT 243 10^3/uL (150-450); RED BLOOD COUNT 2.86 10^6/uL (3.72-5.28); RED CELL DISTRIBUTION WIDTH 16.4 % (11.5-14.0); SEGMENTED NEUTROPHILS % (AUTO) 66.5 % (42-78); TOTAL CELLS COUNTED % (AUTO) 100 %
[2018-06-19 06:58] LABS: BLOOD UREA NITROGEN 6 mg/dL (7-20); CALCIUM 8.5 mg/dL (8.4-10.2); CARBON DIOXIDE 30 mmol/L (22-30); CHLORIDE 103 mmol/L (98-107); GLUCOSE 184 mg/dL (75-110); POTASSIUM 3.6 mmol/L (3.6-5.0); SODIUM 137.1 mmol/L (137-145)
[2018-06-19 07:08] LABS: ANION GAP 5 (5-19)
[2018-06-19] MEDS: INSULIN LISPRO 100 UNIT/ML 3 ML VIAL SUBCUT SCH ×4 (08:18→21:24)
[2018-06-19] MEDS: CEFTRIAXONE 1 GM/D5W RTU 1 GM/50 ML RTUPB IV SCH (09:46)
[2018-06-19] MEDS: ACETAMINOPHEN 325 MG TABLET PO PRN (09:46)
[2018-06-19] MEDS: LOSARTAN POTASSIUM 50 MG TABLET PO SCH (09:47)
[2018-06-19] MEDS: SITAGLIPTIN PHOSPHATE 50 MG TABLET PO SCH (09:47)
[2018-06-19] MEDS: FLUTICASONE/UMECLIDIN/VILANTER 100-62.5-25 MCG/DOSE IH SCH (09:48)
[2018-06-19] MEDS: DULOXETINE HCL 30 MG CAPSULE.DR PO SCH ×2 (09:48→21:23)
[2018-06-19] MEDS: METOPROLOL SUCCINATE 50 MG TAB.SR.24H PO SCH (09:48)
[2018-06-19] MEDS: NYSTATIN TOPICAL POWDER 15 GM TP SCH ×2 (09:48→19:24)
[2018-06-19] MEDS: ENOXAPARIN SODIUM INJ 40 MG/0.4 ML DISP.SYRIN SUBCUT SCH (09:49)
--- NOTE | 2018-06-19 20:49 | PDOC PROGRESS REPORT ---
Subjective Progress Note for:: 06/19/18 Subjective:: Patient was seen by the bedside CT chest that was done showed moderate multifocal pneumonia predominantly right lower lobe Reason For Visit: LEFT LOWER LOBE PNEUMONIA,UTI,CHRONIC RENAL Physical Exam Vital Signs: Temp Pulse Resp BP Pulse Ox 98.1 F 86 18 120/63 98 06/19/18 15:09 06/19/18 16:00 06/19/18 16:00 06/19/18 15:09 06/19/18 16:00 Intake & Output 06/18/18 06/19/18 06/20/18 06:59 06:59 06:59 Intake Total 2286 1608 623 Output Total 3700 930 Balance -1414 678 623 Weight 113.9 kg 114.7 kg General appearance: PRESENT: no acute distress Eye exam: PRESENT: PERRLA Respiratory exam: PRESENT: wheezes Cardiovascular exam: PRESENT: +S1, +S2 GI/Abdominal exam: PRESENT: soft Neurological exam: PRESENT: alert Results Laboratory Results: 06/19/18 06:19 06/19/18 06:19 06/19/18 06/19/18 06:19 06:19 WBC 5.0 RBC 2.86 L Hgb 8.8 L Hct 25.6 L MCV 89 MCH 30.9 MCHC 34.6 RDW 16.4 H Plt Count 243 Seg Neutrophils % 66.5 Lymphocytes % 19.1 Monocytes % 11.4 Eosinophils % 2.4 Basophils % 0.6 Absolute Neutrophils 3.3 Absolute Lymphocytes 1.0 Absolute Monocytes 0.6 Absolute Eosinophils 0.1 Absolute Basophils 0.0 Sodium 137.1 Potassium 3.6 Chloride 103 Carbon Dioxide 30 Anion Gap 5 BUN 6 L Creatinine 0.71 Est GFR ( Amer) > 60 Est GFR (Non-Af Amer) > 60 Glucose 184 H Calcium 8.5 06/11/18 06/11/18 06/12/18 04:00 04:00 16:30 Creatine Kinase 31 29 L CK-MB (CK-2) 0.39 Troponin I < 0.012 06/12/18 06/13/18 06/13/18 16:30 12:38 12:38 Creatine Kinase < 20 L CK-MB (CK-2) 0.99 0.73 Troponin I < 0.012 < 0.012 06/13/18 06/13/18 06/14/18 19:35 19:35 04:10 Creatine Kinase < 20 L < 20 L CK-MB (CK-2) 0.73 Troponin I < 0.012 06/14/18 04:10 Creatine Kinase CK-MB (CK-2) 0.56 Troponin I < 0.012 Impressions: Chest X-Ray 06/16/18 00:00 IMPRESSION: Right basilar pneumonia. copyright 2011 [employer]- All Rights Reserved Assessment & Plan - Diagnosis (1) Right lower lobe pneumonia Qualifiers: Pneumonia type: due to methicillin-sensitive Staphylococcus aureus (MSSA) Qualified Code(s): J15.211 - Pneumonia due to Methicillin susceptible Staph ylococcus aureus Is this a current diagnosis for this admission?: Yes Plan: Continue IV antibiotic (2) Type 2 diabetes mellitus with complication Qualifiers: Diabetes mellitus alf insulin use: with terminal press operator use Qualified Code(s): E11.8 - Type 2 diabetes mellitus with unspecified complications; Z79.4 - half-way (current) use of insulin Is this a current diagnosis for this admission?: Yes (3) Chronic respiratory failure Qualifiers: Respiratory failure complication: hypoxia and hypercapnia Qualified Code(s): J96.11 - Chronic respiratory failure with hypoxia; J96.12 - Chronic respiratory failure with hypercapnia Is this a current diagnosis for this admission?: Yes (4) Hemoptysis Is this a current diagnosis for this admission?: Yes Plan: She has staph aureus pneumonia, the hemoptysis could be from the staph aureus pneumonia.
[2018-06-19] MEDS: MELATONIN 5 MG TABLET PO SCH (21:24)
[2018-06-20] MEDS: GABAPENTIN 300 MG CAPSULE PO SCH ×3 (06:39→22:54)
[2018-06-20] MEDS: HYDROCODONE/ACETAMINOPHEN 5-325 MG TABLET PO PRN ×2 (06:39→13:07)
[2018-06-20] MEDS: PANTOPRAZOLE SODIUM 40 MG TABLET.DR PO SCH (06:39)
[2018-06-20] MEDS: ACETAMINOPHEN 325 MG TABLET PO PRN ×2 (08:26→22:53)
[2018-06-20] MEDS: INSULIN LISPRO 100 UNIT/ML 3 ML VIAL SUBCUT SCH ×4 (08:28→22:54)
[2018-06-20] MEDS: SITAGLIPTIN PHOSPHATE 50 MG TABLET PO SCH (10:42)
[2018-06-20] MEDS: DULOXETINE HCL 30 MG CAPSULE.DR PO SCH ×2 (10:42→22:54)
[2018-06-20] MEDS: METOPROLOL SUCCINATE 50 MG TAB.SR.24H PO SCH (10:43)
[2018-06-20] MEDS: LOSARTAN POTASSIUM 50 MG TABLET PO SCH (10:43)
[2018-06-20] MEDS: ENOXAPARIN SODIUM INJ 40 MG/0.4 ML DISP.SYRIN SUBCUT SCH (10:44)
[2018-06-20] MEDS: NYSTATIN TOPICAL POWDER 15 GM TP SCH ×2 (10:46→17:30)
[2018-06-20] MEDS: FLUTICASONE/UMECLIDIN/VILANTER 100-62.5-25 MCG/DOSE IH SCH (10:47)
[2018-06-20] MEDS: CEFTRIAXONE SODIUM 1,000 MG in DEXTROSE 5%-WATER 50 ML IV SCH (12:32)
[2018-06-20] MEDS: IPRATROPIUM/ALBUTEROL 0.5-2.5 MG/3 ML AMPUL NEB PRN (14:08)
--- NOTE | 2018-06-20 22:46 | PDOC PROGRESS REPORT ---
Subjective Progress Note for:: 06/20/18 Subjective:: Patient seen by the bedside she continues to wheeze Reason For Visit: LEFT LOWER LOBE PNEUMONIA,UTI,CHRONIC RENAL Physical Exam Vital Signs: Temp Pulse Resp BP Pulse Ox 98.2 F 73 20 120/89 H 98 06/20/18 16:28 06/20/18 19:00 06/20/18 16:28 06/20/18 16:28 06/20/18 16:28 Intake & Output 06/19/18 06/20/18 06/21/18 06:59 06:59 06:59 Intake Total 1608 845 761 Output Total 930 573 Balance 678 845 188 Weight 114.7 kg 112.5 kg General appearance: PRESENT: mild distress Eye exam: PRESENT: PERRLA Respiratory exam: PRESENT: wheezes Cardiovascular exam: PRESENT: +S1, +S2 GI/Abdominal exam: PRESENT: soft Neurological exam: PRESENT: alert Results Laboratory Results: 06/19/18 06:19 06/19/18 06:19 06/19/18 07:00 Sputum Gram Stain - Final 06/19/18 07:00 Sputum Sputum Culture - Final C.albicans/C.dubliniensis Normal Lillie Absent 06/11/18 06/11/18 06/12/18 04:00 04:00 16:30 Creatine Kinase 31 29 L CK-MB (CK-2) 0.39 Troponin I < 0.012 06/12/18 06/13/18 06/13/18 16:30 12:38 12:38 Creatine Kinase < 20 L CK-MB (CK-2) 0.99 0.73 Troponin I < 0.012 < 0.012 06/13/18 06/13/18 06/14/18 19:35 19:35 04:10 Creatine Kinase < 20 L < 20 L CK-MB (CK-2) 0.73 Troponin I < 0.012 06/14/18 04:10 Creatine Kinase CK-MB (CK-2) 0.56 Troponin I < 0.012 Impressions: Chest X-Ray 06/16/18 00:00 IMPRESSION: Right basilar pneumonia. 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
[2018-06-20] MEDS: MELATONIN 5 MG TABLET PO SCH (22:54)
[2018-06-21] MEDS: PANTOPRAZOLE SODIUM 40 MG TABLET.DR PO SCH (05:21)
[2018-06-21] MEDS: ACETAMINOPHEN 325 MG TABLET PO PRN ×3 (05:21→20:55)
[2018-06-21] MEDS: GABAPENTIN 300 MG CAPSULE PO SCH ×3 (05:22→23:46)
[2018-06-21] MEDS: METOPROLOL SUCCINATE 50 MG TAB.SR.24H PO SCH (10:15)
[2018-06-21] MEDS: SITAGLIPTIN PHOSPHATE 50 MG TABLET PO SCH (10:15)
[2018-06-21] MEDS: DULOXETINE HCL 30 MG CAPSULE.DR PO SCH ×2 (10:15→23:46)
[2018-06-21] MEDS: LOSARTAN POTASSIUM 50 MG TABLET PO SCH (10:15)
[2018-06-21] MEDS: CEFTRIAXONE SODIUM 1,000 MG in DEXTROSE 5%-WATER 50 ML IV SCH (10:16)
[2018-06-21] MEDS: FLUTICASONE/UMECLIDIN/VILANTER 100-62.5-25 MCG/DOSE IH SCH ×2 (10:18→11:27)
[2018-06-21] MEDS: NYSTATIN TOPICAL POWDER 15 GM TP SCH ×2 (10:19→18:57)
[2018-06-21] MEDS: ENOXAPARIN SODIUM INJ 40 MG/0.4 ML DISP.SYRIN SUBCUT SCH (10:19)
[2018-06-21] MEDS: INSULIN LISPRO 100 UNIT/ML 3 ML VIAL SUBCUT SCH ×4 (10:20→23:49)
[2018-06-21] MEDS: ALBUTEROL SULFATE HFA (90 MCG/PUFF) 200 PUFF/8.5 GM MDI IH PRN (10:37)
[2018-06-21 12:50] LABS: ABSOLUTE EOSINOPHILS # (AUTO) 0.1 10^3/uL (0.0-0.6); ABSOLUTE LYMPHOCYTES (AUTO) 0.9 10^3/uL (0.5-4.7); ABSOLUTE MONOCYTES (AUTO) 0.5 10^3/uL (0.1-1.4); ABSOLUTE NEUT (AUTO) 2.8 10^3/uL (1.7-8.2); BASOPHILS % (AUTO) 0.6 % (0-2); EOSINOPHILS % (AUTO) 2.5 % (0-6); HEMOGLOBIN 8.5 g/dL (12.0-15.5); LYMPHOCYTES % (AUTO) 21.4 % (13-45); MEAN CORPUSCULAR HEMOGLOBIN 30.1 pg (27.0-33.4); MEAN CORPUSCULAR VOLUME 88 fl (80-97); MONOCYTES % (AUTO) 10.4 % (3-13); PLATELET COUNT 203 10^3/uL (150-450); RED BLOOD COUNT 2.83 10^6/uL (3.72-5.28); RED CELL DISTRIBUTION WIDTH 16.3 % (11.5-14.0); SEGMENTED NEUTROPHILS % (AUTO) 65.1 % (42-78); TOTAL CELLS COUNTED % (AUTO) 100 %; WHITE BLOOD COUNT 4.3 10^3/uL (4.0-10.5)
[2018-06-21 13:13] LABS: BLOOD UREA NITROGEN 6 mg/dL (7-20); CALCIUM 8.2 mg/dL (8.4-10.2); GLUCOSE 186 mg/dL (75-110)
[2018-06-21 13:19] LABS: CARBON DIOXIDE 35 mmol/L (22-30); CHLORIDE 98 mmol/L (98-107)
[2018-06-21 13:23] LABS: ANION GAP 3 (5-19)
[2018-06-21] MEDS: HYDROCODONE/ACETAMINOPHEN 5-325 MG TABLET PO PRN (14:46)
--- NOTE | 2018-06-21 20:23 | PDOC PROGRESS REPORT ---
Subjective Progress Note for:: 06/21/18 Subjective:: Patient seen by the bedside, she continues to wheeze, cough Reason For Visit: LEFT LOWER LOBE PNEUMONIA,UTI,CHRONIC RENAL Physical Exam Vital Signs: Temp Pulse Resp BP Pulse Ox 98.3 F 72 28 H 123/66 99 06/21/18 15:16 06/21/18 15:16 06/21/18 15:16 06/21/18 15:16 06/21/18 15:16 Intake & Output 06/20/18 06/21/18 06/22/18 06:59 06:59 06:59 Intake Total 845 761 426 Output Total 573 540 Balance 845 188 -114 Weight 112.5 kg 111.7 kg General appearance: PRESENT: mild distress Eye exam: PRESENT: PERRLA Respiratory exam: PRESENT: wheezes Cardiovascular exam: PRESENT: +S1, +S2 GI/Abdominal exam: PRESENT: soft Neurological exam: PRESENT: alert Results Laboratory Results: 06/21/18 12:28 06/21/18 12:28 06/21/18 06/21/18 12:28 12:28 WBC 4.3 RBC 2.83 L Hgb 8.5 L Hct 25.0 L MCV 88 MCH 30.1 MCHC 34.0 RDW 16.3 H Plt Count 203 Seg Neutrophils % 65.1 Lymphocytes % 21.4 Monocytes % 10.4 Eosinophils % 2.5 Basophils % 0.6 Absolute Neutrophils 2.8 Absolute Lymphocytes 0.9 Absolute Monocytes 0.5 Absolute Eosinophils 0.1 Absolute Basophils 0.0 Sodium 136.0 L Potassium 4.0 Chloride 98 Carbon Dioxide 35 H Anion Gap 3 L BUN 6 L Creatinine 0.55 Est GFR ( Amer) > 60 Est GFR (Non-Af Amer) > 60 Glucose 186 H Calcium 8.2 L 06/11/18 06/11/18 06/12/18 04:00 04:00 16:30 Creatine Kinase 31 29 L CK-MB (CK-2) 0.39 Troponin I < 0.012 06/12/18 06/13/18 06/13/18 16:30 12:38 12:38 Creatine Kinase < 20 L CK-MB (CK-2) 0.99 0.73 Troponin I < 0.012 < 0.012 06/13/18 06/13/18 06/14/18 19:35 19:35 04:10 Creatine Kinase < 20 L < 20 L CK-MB (CK-2) 0.73 Troponin I < 0.012 06/14/18 04:10 Creatine Kinase CK-MB (CK-2) 0.56 Troponin I < 0.012 Impressions: Chest X-Ray 06/16/18 00:00 IMPRESSION: Right basilar pneumonia. copyright 2010 [employer]- All Rights Reserved Assessment & Plan - Diagnosis (1) Right lower lobe pneumonia Qualifiers: Pneumonia type: due to methicillin-sensitive Staphylococcus aureus (MSSA) Qualified Code(s): J15.211 - Pneumonia due to Methicillin susceptible Staphylococcus aureus Is this a current diagnosis for this admission?: Yes Plan: Continue IV antibiotic (2) Type 2 diabetes mellitus with complication Qualifiers: Diabetes mellitus remote computer terminal operator insulin use: with remote computer terminal operator use Qualified Code(s): E11.8 - Type 2 diabetes mellitus with unspecified complications; 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
[2018-06-21] MEDS: FLUCONAZOLE 100 MG TABLET PO SCH (20:55)
[2018-06-21] MEDS: MELATONIN 5 MG TABLET PO SCH (23:46)
[2018-06-22] MEDS: ALBUTEROL SULFATE HFA (90 MCG/PUFF) 200 PUFF/8.5 GM MDI IH PRN ×4 (00:45→22:45)
[2018-06-22] MEDS: GABAPENTIN 300 MG CAPSULE PO SCH ×3 (05:34→22:39)
[2018-06-22] MEDS: PANTOPRAZOLE SODIUM 40 MG TABLET.DR PO SCH (05:34)
[2018-06-22] MEDS: HYDROCODONE/ACETAMINOPHEN 5-325 MG TABLET PO PRN ×2 (05:34→13:51)
[2018-06-22] MEDS: METOPROLOL SUCCINATE 50 MG TAB.SR.24H PO SCH (09:07)
[2018-06-22] MEDS: LOSARTAN POTASSIUM 50 MG TABLET PO SCH (09:07)
[2018-06-22] MEDS: DULOXETINE HCL 30 MG CAPSULE.DR PO SCH ×2 (09:07→22:39)
[2018-06-22] MEDS: FLUCONAZOLE 100 MG TABLET PO SCH (09:07)
[2018-06-22] MEDS: SITAGLIPTIN PHOSPHATE 50 MG TABLET PO SCH (09:07)
[2018-06-22] MEDS: CEFTRIAXONE SODIUM 1,000 MG in DEXTROSE 5%-WATER 50 ML IV SCH (09:09)
[2018-06-22] MEDS: INSULIN LISPRO 100 UNIT/ML 3 ML VIAL SUBCUT SCH ×4 (09:09→22:38)
[2018-06-22] MEDS: NYSTATIN TOPICAL POWDER 15 GM TP SCH ×2 (09:10→17:28)
[2018-06-22] MEDS: ENOXAPARIN SODIUM INJ 40 MG/0.4 ML DISP.SYRIN SUBCUT SCH (09:10)
[2018-06-22] MEDS: FLUTICASONE/UMECLIDIN/VILANTER 100-62.5-25 MCG/DOSE IH SCH (09:11)
[2018-06-22] MEDS: DIPHENHYDRAMINE HCL 25 MG CAPSULE PO PRN (18:13)
--- NOTE | 2018-06-22 18:13 | PDOC PROGRESS REPORT ---
Subjective Progress Note for:: 06/22/18 Subjective:: Patient seen by the bedside, she continues to wheeze, cough Reason For Visit: LEFT LOWER LOBE PNEUMONIA,UTI,CHRONIC RENAL Physical Exam Vital Signs: Temp Pulse Resp BP Pulse Ox 98.2 F 68 18 149/87 H 95 06/22/18 16:00 06/22/18 16:15 06/22/18 16:15 06/22/18 16:00 06/22/18 16:15 Intake & Output 06/21/18 06/22/18 06/23/18 06:59 06:59 06:59 Intake Total 761 854 50 Output Total 573 540 Balance 188 314 50 Weight 111.7 kg 108.9 kg General appearance: PRESENT: no acute distress Eye exam: PRESENT: PERRLA Respiratory exam: PRESENT: rhonchi, wheezes Cardiovascular exam: PRESENT: +S1, +S2 GI/Abdominal exam: PRESENT: soft Neurological exam: PRESENT: alert, CN II-XII grossly intact Results Laboratory Results: 06/21/18 12:28 06/21/18 12:28 06/11/18 06/11/18 06/12/18 04:00 04:00 16:30 Creatine Kinase 31 29 L CK-MB (CK-2) 0.39 Troponin I < 0.012 06/12/18 06/13/18 06/13/18 16:30 12:38 12:38 Creatine Kinase < 20 L CK-MB (CK-2) 0.99 0.73 Troponin I < 0.012 < 0.012 06/13/18 06/13/18 06/14/18 19:35 19:35 04:10 Creatine Kinase < 20 L < 20 L CK-MB (CK-2) 0.73 Troponin I < 0.012 06/14/18 04:10 Creatine Kinase CK-MB (CK-2) 0.56 Troponin I < 0.012 Impressions: Chest X-Ray 06/16/18 00:00 IMPRESSION: Right basilar pneumonia. copyright 2011 [employer]- All Rights Reserved Assessment & Plan - Diagnosis (1) Right lower lobe pneumonia Qualifiers: Pneumonia type: due to methicillin-sensitive Staphylococcus aureus (MSSA) Qualified Code(s): J15.211 - Pneumonia due to Methicillin susceptible Staphy lococcus aureus Is this a current diagnosis for this admission?: Yes Plan: Continue IV antibiotic (2) Type 2 diabetes mellitus with complication Qualifiers: Diabetes mellitus group home insulin use: with group home use Qualified Code(s): E11.8 - Type 2 diabetes mellitus with unspecified complications; 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
[2018-06-22] MEDS: MELATONIN 5 MG TABLET PO SCH (22:38)
[2018-06-23] MEDS: GABAPENTIN 300 MG CAPSULE PO SCH ×3 (05:22→22:22)
[2018-06-23] MEDS: HYDROCODONE/ACETAMINOPHEN 5-325 MG TABLET PO PRN ×3 (05:22→20:27)
[2018-06-23] MEDS: PANTOPRAZOLE SODIUM 40 MG TABLET.DR PO SCH (05:22)
[2018-06-23] MEDS: ALBUTEROL SULFATE HFA (90 MCG/PUFF) 200 PUFF/8.5 GM MDI IH PRN ×2 (05:23→22:23)
[2018-06-23 06:41] LABS: ABSOLUTE EOSINOPHILS # (AUTO) 0.2 10^3/uL (0.0-0.6); ABSOLUTE LYMPHOCYTES (AUTO) 1.5 10^3/uL (0.5-4.7); ABSOLUTE MONOCYTES (AUTO) 0.6 10^3/uL (0.1-1.4); ABSOLUTE NEUT (AUTO) 1.8 10^3/uL (1.7-8.2); BASOPHILS % (AUTO) 0.9 % (0-2); EOSINOPHILS % (AUTO) 3.9 % (0-6); HEMATOCRIT 24.9 % (36.0-47.0); HEMOGLOBIN 8.7 g/dL (12.0-15.5); LYMPHOCYTES % (AUTO) 36.6 % (13-45); MEAN CORPUSCULAR HEMOGLOBIN 30.8 pg (27.0-33.4); MEAN CORPUSCULAR HGB CONC 34.8 g/dL (32.0-36.0); MEAN CORPUSCULAR VOLUME 89 fl (80-97); MONOCYTES % (AUTO) 14.5 % (3-13); PLATELET COUNT 234 10^3/uL (150-450); RED BLOOD COUNT 2.81 10^6/uL (3.72-5.28); RED CELL DISTRIBUTION WIDTH 16.3 % (11.5-14.0); SEGMENTED NEUTROPHILS % (AUTO) 44.1 % (42-78); TOTAL CELLS COUNTED % (AUTO) 100 %; WHITE BLOOD COUNT 4.1 10^3/uL (4.0-10.5)
[2018-06-23 06:57] LABS: BLOOD UREA NITROGEN 7 mg/dL (7-20); CALCIUM 8.5 mg/dL (8.4-10.2); GLUCOSE 149 mg/dL (75-110); POTASSIUM 3.8 mmol/L (3.6-5.0)
[2018-06-23 07:03] LABS: CARBON DIOXIDE 36 mmol/L (22-30); CHLORIDE 100 mmol/L (98-107); SODIUM 137.1 mmol/L (137-145)
[2018-06-23 07:07] LABS: ANION GAP 1 (5-19)
[2018-06-23] MEDS: DULOXETINE HCL 30 MG CAPSULE.DR PO SCH ×2 (09:19→22:22)
[2018-06-23] MEDS: INSULIN LISPRO 100 UNIT/ML 3 ML VIAL SUBCUT SCH ×4 (09:19→22:22)
[2018-06-23] MEDS: LOSARTAN POTASSIUM 50 MG TABLET PO SCH (09:19)
[2018-06-23] MEDS: SITAGLIPTIN PHOSPHATE 50 MG TABLET PO SCH (09:20)
[2018-06-23] MEDS: METOPROLOL SUCCINATE 50 MG TAB.SR.24H PO SCH (09:20)
[2018-06-23] MEDS: FLUCONAZOLE 100 MG TABLET PO SCH (09:20)
[2018-06-23] MEDS: CEFTRIAXONE SODIUM 1,000 MG in DEXTROSE 5%-WATER 50 ML IV SCH (09:21)
[2018-06-23] MEDS: FLUTICASONE/UMECLIDIN/VILANTER 100-62.5-25 MCG/DOSE IH SCH (09:22)
[2018-06-23] MEDS: NYSTATIN TOPICAL POWDER 15 GM TP SCH ×2 (12:17→20:28)
--- NOTE | 2018-06-23 20:18 | PDOC PROGRESS REPORT ---
Subjective Progress Note for:: 06/23/18 Subjective:: Patient seen by the bedside, she continues to wheeze, cough Reason For Visit: LEFT LOWER LOBE PNEUMONIA,UTI,CHRONIC RENAL Physical Exam Vital Signs: Temp Pulse Resp BP Pulse Ox 98.2 F 77 18 140/73 H 98 06/23/18 20:00 06/23/18 20:00 06/23/18 20:00 06/23/18 20:00 06/23/18 20:00 Intake & Output 06/22/18 06/23/18 06/24/18 06:59 06:59 06:59 Intake Total 854 287 702 Output Total 540 380 Balance 314 287 322 Weight 108.9 kg 110.2 kg General appearance: PRESENT: mild distress Head exam: PRESENT: atraumatic, normocephalic Eye exam: ABSENT: scleral icterus Ear exam: PRESENT: normal external ear exam Mouth exam: PRESENT: moist, tongue midline Respiratory exam: PRESENT: wheezes Cardiovascular exam: PRESENT: RRR, +S1, +S2 Pulses: PRESENT: normal dorsalis pedis pul, +2 pedal pulses bilateral Vascular exam: PRESENT: normal capillary refill GI/Abdominal exam: PRESENT: normal bowel sounds, soft Rectal exam: PRESENT: deferred Neurological exam: PRESENT: alert, awake, oriented to person, oriented to place, oriented to time, oriented to situation, CN II-XII grossly intact Psychiatric exam: PRESENT: appropriate affect, normal mood Skin exam: PRESENT: dry, intact, warm Results Laboratory Results: 06/23/18 06:30 06/23/18 06:30 06/23/18 06/23/18 06:30 06:30 WBC 4.1 RBC 2.81 L Hgb 8.7 L Hct 24.9 L MCV 89 MCH 30.8 MCHC 34.8 RDW 16.3 H Plt Count 234 Seg Neutrophils % 44.1 Lymphocytes % 36.6 Monocytes % 14.5 H Eosinophils % 3.9 Basophils % 0.9 Absolute Neutrophils 1.8 Absolute Lymphocytes 1.5 Absolute Monocytes 0.6 Absolute Eosinophils 0.2 Absolute Basophils 0.0 Sodium 137.1 Potassium 3.8 Chloride 100 Carbon Dioxide 36 H Anion Gap 1 L BUN 7 Creatinine 0.67 Est GFR ( Amer) > 60 Est GFR (Non-Af Amer) > 60 Glucose 149 H Calcium 8.5 06/11/18 06/11/1806/12/19 04:00 04:00 16:30 Creatine Kinase 31 29 L CK-MB (CK-2) 0.39 Troponin I < 0.012 06/12/18 06/13/18 06/13/18 16:30 12:38 12:38 Creatine Kinase < 20 L CK-MB (CK-2) 0.99 0.73 Troponin I < 0.012 < 0.012 06/13/18 06/13/18 06/14/18 19:35 19:35 04:10 Creatine Kinase < 20 L < 20 L CK-MB (CK-2) 0.73 Troponin I < 0.012 06/14/18 04:10 Creatine Kinase CK-MB (CK-2) 0.56 Troponin I < 0.012 Impressions: Chest X-Ray 06/16/18 00:00 IMPRESSION: Right basilar pneumonia. 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
[2018-06-23] MEDS: MELATONIN 5 MG TABLET PO SCH (22:21)
[2018-06-24] MEDS: IPRATROPIUM/ALBUTEROL 0.5-2.5 MG/3 ML AMPUL NEB PRN (01:29)
[2018-06-24] MEDS: PANTOPRAZOLE SODIUM 40 MG TABLET.DR PO SCH (05:22)
[2018-06-24] MEDS: GABAPENTIN 300 MG CAPSULE PO SCH ×3 (05:22→21:52)
[2018-06-24] MEDS: HYDROCODONE/ACETAMINOPHEN 5-325 MG TABLET PO PRN ×3 (05:24→21:54)
[2018-06-24] MEDS: ALBUTEROL SULFATE HFA (90 MCG/PUFF) 200 PUFF/8.5 GM MDI IH PRN (05:26)
[2018-06-24 06:51] LABS: ABSOLUTE EOSINOPHILS # (AUTO) 0.2 10^3/uL (0.0-0.6); ABSOLUTE LYMPHOCYTES (AUTO) 1.7 10^3/uL (0.5-4.7); ABSOLUTE MONOCYTES (AUTO) 0.5 10^3/uL (0.1-1.4); ABSOLUTE NEUT (AUTO) 1.7 10^3/uL (1.7-8.2); EOSINOPHILS % (AUTO) 4.5 % (0-6); HEMATOCRIT 26.1 % (36.0-47.0); HEMOGLOBIN 8.8 g/dL (12.0-15.5); LYMPHOCYTES % (AUTO) 41.4 % (13-45); MEAN CORPUSCULAR HEMOGLOBIN 29.7 pg (27.0-33.4); MEAN CORPUSCULAR HGB CONC 33.7 g/dL (32.0-36.0); MEAN CORPUSCULAR VOLUME 88 fl (80-97); MONOCYTES % (AUTO) 11.9 % (3-13); PLATELET COUNT 278 10^3/uL (150-450); RED BLOOD COUNT 2.96 10^6/uL (3.72-5.28); RED CELL DISTRIBUTION WIDTH 16.3 % (11.5-14.0); SEGMENTED NEUTROPHILS % (AUTO) 41.2 % (42-78); TOTAL CELLS COUNTED % (AUTO) 100 %; WHITE BLOOD COUNT 4.1 10^3/uL (4.0-10.5)
[2018-06-24 07:06] LABS: ANION GAP 6 (5-19); BLOOD UREA NITROGEN 7 mg/dL (7-20); CALCIUM 8.2 mg/dL (8.4-10.2); CARBON DIOXIDE 35 mmol/L (22-30); CHLORIDE 97 mmol/L (98-107); GLUCOSE 179 mg/dL (75-110); POTASSIUM 3.9 mmol/L (3.6-5.0)
[2018-06-24] MEDS: INSULIN LISPRO 100 UNIT/ML 3 ML VIAL SUBCUT SCH ×4 (09:11→21:52)
[2018-06-24] MEDS: LOSARTAN POTASSIUM 50 MG TABLET PO SCH (09:11)
[2018-06-24] MEDS: SITAGLIPTIN PHOSPHATE 50 MG TABLET PO SCH (09:12)
[2018-06-24] MEDS: FLUCONAZOLE 100 MG TABLET PO SCH (09:12)
[2018-06-24] MEDS: DULOXETINE HCL 30 MG CAPSULE.DR PO SCH ×2 (09:13→21:52)
[2018-06-24] MEDS: NYSTATIN TOPICAL POWDER 15 GM TP SCH ×2 (09:19→21:52)
[2018-06-24] MEDS: CEFTRIAXONE SODIUM 1,000 MG in DEXTROSE 5%-WATER 50 ML IV SCH (09:25)
[2018-06-24] MEDS: METOPROLOL SUCCINATE 50 MG TAB.SR.24H PO SCH (09:26)
[2018-06-24] MEDS: FLUTICASONE/UMECLIDIN/VILANTER 100-62.5-25 MCG/DOSE IH SCH (09:27)
[2018-06-24] MEDS: DIPHENHYDRAMINE HCL 25 MG CAPSULE PO PRN (11:48)
--- NOTE | 2018-06-24 13:06 | PDOC PROGRESS REPORT ---
Subjective Progress Note for:: 06/24/18 Subjective:: Patient is currently doing fair Patients do not want to use the inhaler which causing the oral thrush Patient is refused with the nebulizer and discussed with the patient's patient still having audible wheezing requiring nebulizer which did not causing the thrush use some salt water gargling patient is tolerating the Diflucan Patient CT of the chest some multifocal pneumonia Reason For Visit: LEFT LOWER LOBE PNEUMONIA,UTI,CHRONIC RENAL Physical Exam Vital Signs: Temp Pulse Resp BP Pulse Ox 97.7 F 73 18 115/55 L 99 06/24/18 08:50 06/24/18 08:50 06/24/18 08:50 06/24/18 08:50 06/24/18 08:50 Intake & Output 06/23/18 06/24/18 06/25/18 06:59 06:59 06:59 Intake Total 287 1102 Output Total 380 Balance 287 722 Weight 110.2 kg 109.6 kg General appearance: PRESENT: no acute distress, well-developed, well-nourished Head exam: PRESENT: atraumatic, normocephalic Eye exam: PRESENT: conjunctiva pink, EOMI, PERRLA. ABSENT: scleral icterus Ear exam: PRESENT: normal external ear exam Mouth exam: PRESENT: moist, tongue midline Neck exam: PRESENT: full ROM. ABSENT: carotid bruit, JVD, lymphadenopathy, thyromegaly Respiratory exam: PRESENT: decreased breath sounds, wheezes Cardiovascular exam: PRESENT: RRR. ABSENT: diastolic murmur, rubs, systolic murmur Vascular exam: PRESENT: normal capillary refill GI/Abdominal exam: PRESENT: normal bowel sounds, soft. ABSENT: distended, guarding, mass, organolmegaly, rebound, tenderness Rectal exam: PRESENT: deferred Neurological exam: PRESENT: alert, awake, oriented to person, oriented to place, oriented to time, oriented to situation, CN II-XII grossly intact. ABSENT: motor sensory deficit Psychiatric exam: PRESENT: appropriate affect, normal mood. ABSENT: homicidal ideation, suicidal ideation Skin exam: PRESENT: dry, intact, warm. ABSENT: cyanosis, rash Results Laboratory Results: 06/24/18 06:15 06/24/18 06:15 06/24/18 06/24/18 06:15 06:15 WBC 4.1 RBC 2.96 L Hgb 8.8 L Hct 26.1 L MCV 88 MCH 29.7 MCHC 33.7 RDW 16.3 H Plt Count 278 Seg Neutrophils % 41.2 L Lymphocytes % 41.4 Monocytes % 11.9 Eosinophils % 4.5 Basophils % 1.0 Absolute Neutrophils 1.7 Absolute Lymphocytes 1.7 Absolute Monocytes 0.5 Absolute Eosinophils 0.2 Absolute Basophils 0.0 Sodium 138.0 Potassium 3.9 Chloride 97 L Carbon Dioxide 35 H Anion Gap 6 BUN 7 Creatinine 0.60 Est GFR ( Amer) > 60 Est GFR (Non-Af Amer) > 60 Glucose 179 H Calcium 8.2 L 06/11/18 06/11/18 06/12/18 04:00 04:00 16:30 Creatine Kinase 31 29 L CK-MB (CK-2) 0.39 Troponin I < 0.012 06/12/18 06/13/18 06/13/18 16:30 12:38 12:38 Creatine Kinase < 20 L CK-MB (CK-2) 0.99 0.73 Troponin I < 0.012 < 0.012 06/13/18 06/13/18 06/14/18 19:35 19:35 04:10 Creatine Kinase < 20 L < 20 L CK-MB (CK-2) 0.73 Troponin I < 0.012 06/14/18 04:10 Creatine Kinase CK-MB (CK-2) 0.56 Troponin I < 0.012 Impressions: Chest X-Ray 06/16/18 00:00 IMPRESSION: Right basilar pneumonia. copyright 2010 [employer]- All Rights Reserved Assessment & Plan - Diagnosis (1) COPD with hypoxia Is this a current diagnosis for this admission?: Yes Plan: Continues to nebulizer treatment discussed with the patient use the DuoNeb every 6 hours (2) Chronic respiratory failure Qualifiers: Respiratory failure complication: hypoxia Qualified Code(s): J96.11 - Chronic respiratory failure with hypoxia Is this a current diagnosis for this admission?: Yes Plan: Currently stable we will repeat the ABG in the morning (3) Pneumonia Qualifiers: Pneumonia type: due to unspecified organism Laterality: right Lung location: lower lobe of lung Qualified Code(s): J18.1 - Lobar pneumonia, unspecified organism Is this a current diagnosis for this admission?: Yes Plan: We will start the patient on cefepime (4) Wheezing Is this a current diagnosis for this admission?: Yes Plan: Continues to nebulizer treatments (5) Oral thrush Is this a current diagnosis for this admission?: Yes Plan: Continues to Diflucan (6) Type 2 diabetes mellitus Qualifiers: Diabetes mellitus halfway insulin use: with meterman use Diabetes mellitus complication status: with hypoglycemia Diabetes mellitus complication detail: without coma Qualified Code(s): E11.649 - Type 2 diabetes mellitus with hypoglycemia without coma; 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
[2018-06-24] MEDS: CEFEPIME HCL 2 GM in DEXTROSE 5%-WATER 50 ML IV SCH (18:26)
[2018-06-24] MEDS: MELATONIN 5 MG TABLET PO SCH (21:52)
[2018-06-24] MEDS ORDERED: CEFEPIME 2 GM/D5W RTU 2 GM/50 ML RTUPB IV SCH (22:00)
[2018-06-25] MEDS: CEFEPIME HCL 2 GM in DEXTROSE 5%-WATER 50 ML IV SCH ×2 (05:03→17:35)
[2018-06-25] MEDS: HYDROCODONE/ACETAMINOPHEN 5-325 MG TABLET PO PRN ×3 (05:03→22:06)
[2018-06-25] MEDS: PANTOPRAZOLE SODIUM 40 MG TABLET.DR PO SCH (05:04)
[2018-06-25] MEDS: GABAPENTIN 300 MG CAPSULE PO SCH ×3 (05:04→22:07)
[2018-06-25 05:22] LABS: ABSOLUTE EOSINOPHILS # (AUTO) 0.2 10^3/uL (0.0-0.6); ABSOLUTE LYMPHOCYTES (AUTO) 1.6 10^3/uL (0.5-4.7); ABSOLUTE MONOCYTES (AUTO) 0.4 10^3/uL (0.1-1.4); ABSOLUTE NEUT (AUTO) 1.6 10^3/uL (1.7-8.2); BASOPHILS % (AUTO) 1.1 % (0-2); HEMATOCRIT 25.9 % (36.0-47.0); HEMOGLOBIN 8.7 g/dL (12.0-15.5); LYMPHOCYTES % (AUTO) 41.9 % (13-45); MEAN CORPUSCULAR HEMOGLOBIN 29.9 pg (27.0-33.4); MEAN CORPUSCULAR HGB CONC 33.7 g/dL (32.0-36.0); MEAN CORPUSCULAR VOLUME 89 fl (80-97); MONOCYTES % (AUTO) 9.4 % (3-13); PLATELET COUNT 293 10^3/uL (150-450); RED BLOOD COUNT 2.92 10^6/uL (3.72-5.28); RED CELL DISTRIBUTION WIDTH 16.1 % (11.5-14.0); SEGMENTED NEUTROPHILS % (AUTO) 42.6 % (42-78); TOTAL CELLS COUNTED % (AUTO) 100 %; WHITE BLOOD COUNT 3.9 10^3/uL (4.0-10.5)
[2018-06-25 05:35] LABS: BLOOD UREA NITROGEN 8 mg/dL (7-20); GLUCOSE 154 mg/dL (75-110); POTASSIUM 4.3 mmol/L (3.6-5.0)
[2018-06-25 05:41] LABS: CARBON DIOXIDE 36 mmol/L (22-30); CHLORIDE 101 mmol/L (98-107); SODIUM 139.2 mmol/L (137-145)
[2018-06-25 05:46] LABS: ANION GAP 2 (5-19)
[2018-06-25] MEDS: INSULIN LISPRO 100 UNIT/ML 3 ML VIAL SUBCUT SCH ×4 (07:46→22:07)
[2018-06-25] MEDS: LOSARTAN POTASSIUM 50 MG TABLET PO SCH (10:56)
[2018-06-25] MEDS: NYSTATIN TOPICAL POWDER 15 GM TP SCH (10:56)
[2018-06-25] MEDS: FLUCONAZOLE 100 MG TABLET PO SCH (10:56)
[2018-06-25] MEDS: SITAGLIPTIN PHOSPHATE 50 MG TABLET PO SCH (10:56)
[2018-06-25] MEDS: METOPROLOL SUCCINATE 50 MG TAB.SR.24H PO SCH (10:56)
[2018-06-25] MEDS: DULOXETINE HCL 30 MG CAPSULE.DR PO SCH ×2 (10:56→22:07)
[2018-06-25] MEDS: FLUTICASONE/UMECLIDIN/VILANTER 100-62.5-25 MCG/DOSE IH SCH ×2 (10:57→11:04)
[2018-06-25] MEDS: FERROUS SULFATE 325 MG TABLET PO SCH (10:58)
--- NOTE | 2018-06-25 11:13 | PDOC PROGRESS REPORT ---
Subjective Progress Note for:: 06/25/18 Subjective:: Patient is currently doing fair Patients do not want to use the inhaler which causing the oral thrush Patient is refused with the nebulizer and discussed with the patient's patient still having audible wheezing requiring nebulizer which did not causing the thrush use some salt water gargling patient is tolerating the Diflucan Patient CT of the chest some multifocal pneumonia Reason For Visit: LEFT LOWER LOBE PNEUMONIA,UTI,CHRONIC RENAL Physical Exam Vital Signs: Temp Pulse Resp BP Pulse Ox 97.9 F 72 17 117/83 94 06/25/18 08:20 06/25/18 08:20 06/25/18 08:20 06/25/18 08:20 06/25/18 08:20 Intake & Output 06/24/18 06/25/18 06/26/18 06:59 06:59 06:59 Intake Total 1102 1153 Output Total 380 800 Balance 722 353 Weight 109.6 kg 110.4 kg General appearance: PRESENT: no acute distress, well-developed, well-nourished Head exam: PRESENT: atraumatic, normocephalic Eye exam: PRESENT: conjunctiva pink, EOMI, PERRLA. ABSENT: scleral icterus Ear exam: PRESENT: normal external ear exam Mouth exam: PRESENT: moist, tongue midline Neck exam: PRESENT: full ROM. ABSENT: carotid bruit, JVD, lymphadenopathy, thyromegaly Respiratory exam: PRESENT: clear to auscultation [place] Cardiovascular exam: PRESENT: RRR. ABSENT: diastolic murmur, rubs, systolic murmur Pulses: PRESENT: normal dorsalis pedis pul, +2 pedal pulses bilateral Vascular exam: PRESENT: normal capillary refill GI/Abdominal exam: PRESENT: normal bowel sounds, soft. ABSENT: distended, guarding, mass, organolmegaly, rebound, tenderness Rectal exam: PRESENT: deferred Neurological exam: PRESENT: alert, awake, oriented to person, oriented to place, oriented to time, oriented to situation, CN II-XII grossly intact. ABSENT: motor sensory deficit Psychiatric exam: PRESENT: appropriate affect, normal mood. ABSENT: homicidal ideation, suicidal ideation Skin exam: PRESENT: dry, intact, warm. ABSENT: cyanosis, rash Results Laboratory Results: 06/25/18 05:00 06/25/18 05:00 06/25/18 06/25/18 05:00 05:00 WBC 3.9 L RBC 2.92 L Hgb 8.7 L Hct 25.9 L MCV 89 MCH 29.9 MCHC 33.7 RDW 16.1 H Plt Count 293 Seg Neutrophils % 42.6 Lymphocytes % 41.9 Monocytes % 9.4 Eosinophils % 5.0 Basophils % 1.1 Absolute Neutrophils 1.6 L Absolute Lymphocytes 1.6 Absolute Monocytes 0.4 Absolute Eosinophils 0.2 Absolute Basophils 0.0 Sodium 139.2 Potassium 4.3 Chloride 101 Carbon Dioxide 36 H Anion Gap 2 L BUN 8 Creatinine 0.86 Est GFR ( Amer) > 60 Est GFR (Non-Af Amer) > 60 Glucose 154 H Calcium 9.0 06/11/18 06/11/18 06/12/18 04:00 04:00 16:30 Creatine Kinase 31 29 L CK-MB (CK-2) 0.39 Troponin I < 0.012 06/12/18 06/13/18 06/13/18 16:30 12:38 12:38 Creatine Kinase < 20 L CK-MB (CK-2) 0.99 0.73 Troponin I < 0.012 < 0.012 06/13/18 06/13/18 06/14/18 19:35 19:35 04:10 Creatine Kinase < 20 L < 20 L CK-MB (CK-2) 0.73 Troponin I < 0.012 06/14/18 04:10 Creatine Kinase CK-MB (CK-2) 0.56 Troponin I < 0.012 Impressions: Chest X-Ray 06/16/18 00:00 IMPRESSION: Right basilar pneumonia. copyright 2010 [employer]- All Rights Reserved Assessment & Plan - Diagnosis (1) COPD with hypoxia Is this a current diagnosis for this admission?: Yes Plan: Continues to nebulizer treatment discussed with the patient use the DuoNeb every 6 hours (2) Chronic respiratory failure Qualifiers: Respiratory failure complication: hypoxia Qualified Code(s): J96.11 - Chronic respiratory failure with hypoxia Is this a current diagnosis for this admission?: Yes Plan: Currently stable we will repeat the ABG in the morning (3) Pneumonia Qualifiers: Pneumonia type: due to unspecified organism Laterality: right Lung location: lower lobe of lung Qualified Code(s): J18.1 - Lobar pneumonia, unspecified organism Is this a current diagnosis for this admission?: Yes Plan: We will start the patient on cefepime (4) Wheezing Is this a current diagnosis for this admission?: Yes Plan: Continues to nebulizer treatments (5) Oral thrush Is this a current diagnosis for this admission?: Yes Plan: Continues to Diflucan (6) Type 2 diabetes mellitus Qualifiers: Diabetes mellitus exterminator helper insulin use: with exterminator helper use Diabetes mellitus complication status: with hypoglycemia Diabetes mellitus complication detail: without coma Qualified Code(s): E11.649 - Type 2 diabetes mellitus with hypoglycemia without coma; Z79.4 - residential (current) use of insulin Is this a current diagnosis for this admission?: Yes Plan: Continues a sliding scale - Time Time Spent with patient: 15-24 minutes Medications reviewed and adjusted accordingly: Yes Anticipated discharge: Other Within: Other - Plan Summary Plan Summary: Continues to current medications we will check a CBC and Chem-7
[2018-06-25] MEDS: IPRATROPIUM/ALBUTEROL 0.5-2.5 MG/3 ML AMPUL NEB PRN ×2 (16:31→21:23)
[2018-06-25] MEDS: MELATONIN 5 MG TABLET PO SCH (22:07)
[2018-06-25] MEDS: ALBUTEROL SULFATE HFA (90 MCG/PUFF) 200 PUFF/8.5 GM MDI IH PRN (22:08)
[2018-06-26] MEDS: HYDROCODONE/ACETAMINOPHEN 5-325 MG TABLET PO PRN ×2 (04:27→17:13)
[2018-06-26] MEDS: CEFEPIME HCL 2 GM in DEXTROSE 5%-WATER 50 ML IV SCH ×2 (05:19→17:11)
[2018-06-26] MEDS: PANTOPRAZOLE SODIUM 40 MG TABLET.DR PO SCH (05:20)
[2018-06-26] MEDS: GABAPENTIN 300 MG CAPSULE PO SCH ×3 (05:20→22:30)
[2018-06-26] MEDS: IPRATROPIUM/ALBUTEROL 0.5-2.5 MG/3 ML AMPUL NEB PRN ×2 (08:04→14:35)
[2018-06-26] MEDS: INSULIN LISPRO 100 UNIT/ML 3 ML VIAL SUBCUT SCH ×4 (08:25→22:30)
[2018-06-26] MEDS: SITAGLIPTIN PHOSPHATE 50 MG TABLET PO SCH (10:08)
[2018-06-26] MEDS: FLUCONAZOLE 100 MG TABLET PO SCH (10:08)
[2018-06-26] MEDS: LOSARTAN POTASSIUM 50 MG TABLET PO SCH (10:08)
[2018-06-26] MEDS: FLUTICASONE/UMECLIDIN/VILANTER 100-62.5-25 MCG/DOSE IH SCH (10:08)
[2018-06-26] MEDS: DULOXETINE HCL 30 MG CAPSULE.DR PO SCH ×2 (10:08→22:30)
[2018-06-26] MEDS: METOPROLOL SUCCINATE 50 MG TAB.SR.24H PO SCH (10:08)
[2018-06-26] MEDS: FERROUS SULFATE 325 MG TABLET PO SCH (10:08)
--- NOTE | 2018-06-26 10:36 | PDOC PROGRESS REPORT ---
Subjective Progress Note for:: 06/26/18 Subjective:: Patient is currently doing fair Patients do not want to use the inhaler which causing the oral thrush Patient is refused with the nebulizer and discussed with the patient's patient still having audible wheezing requiring nebulizer which did not causing the thrush use some salt water gargling patient is tolerating the Diflucan Patient CT of the chest some multifocal pneumonia Reason For Visit: LEFT LOWER LOBE PNEUMONIA,UTI,CHRONIC RENAL Physical Exam Vital Signs: Temp Pulse Resp BP Pulse Ox 98.1 F 92 16 134/66 H 92 06/26/18 03:30 06/26/18 08:04 06/26/18 08:04 06/26/18 03:30 06/26/18 08:04 Intake & Output 06/25/18 06/26/18 06/27/18 06:59 06:59 06:59 Intake Total 1153 1055 Output Total 800 950 Balance 353 105 Weight 110.4 kg 109.5 kg General appearance: PRESENT: no acute distress, well-developed, well-nourished Head exam: PRESENT: atraumatic, normocephalic Eye exam: PRESENT: conjunctiva pink, EOMI, PERRLA. ABSENT: scleral icterus Ear exam: PRESENT: normal external ear exam Mouth exam: PRESENT: moist, tongue midline Neck exam: PRESENT: full ROM. ABSENT: carotid bruit, JVD, lymphadenopathy, thyromegaly Respiratory exam: PRESENT: clear to auscultation [place] Cardiovascular exam: PRESENT: RRR. ABSENT: diastolic murmur, rubs, systolic murmur Vascular exam: PRESENT: normal capillary refill GI/Abdominal exam: PRESENT: normal bowel sounds, soft. ABSENT: distended, guarding, mass, organolmegaly, rebound, tenderness Rectal exam: PRESENT: deferred Extremities exam: ABSENT: pedal edema Neurological exam: PRESENT: alert, awake, oriented to person, oriented to place, oriented to time, oriented to situation, CN II-XII grossly intact. ABSENT: motor sensory deficit Psychiatric exam: PRESENT: appropriate affect, normal mood. ABSENT: homicidal ideation, suicidal ideation Skin exam: PRESENT: dry, intact, warm. ABSENT: cyanosis, rash Results Laboratory Results: 06/25/18 05:00 06/25/18 05:00 06/11/18 06/11/18 06/12/18 04:00 04:00 16:30 Creatine Kinase 31 29 L CK-MB (CK-2) 0.39 Troponin I < 0.012 06/12/18 06/13/18 06/13/18 16:30 12:38 12:38 Creatine Kinase < 20 L CK-MB (CK-2) 0.99 0.73 Troponin I < 0.012 < 0.012 06/13/18 06/13/18 06/14/18 19:35 19:35 04:10 Creatine Kinase < 20 L < 20 L CK-MB (CK-2) 0.73 Troponin I < 0.012 06/14/18 04:10 Creatine Kinase CK-MB (CK-2) 0.56 Troponin I < 0.012 Impressions: Chest X-Ray 06/16/18 00:00 IMPRESSION: Right basilar pneumonia. copyright 2010 [employer]- All Rights Reserved Assessment & Plan - Diagnosis (1) COPD with hypoxia Is this a current diagnosis for this admission?: Yes Plan: Continues to nebulizer treatment discussed with the patient use the DuoNeb every 6 hours (2) Chronic respiratory failure Qualifiers: Respiratory failure complication: hypoxia Qualified Code(s): J96.11 - Chronic respiratory failure with hypoxia Is this a current diagnosis for this admission?: Yes Plan: Currently stable we will repeat the ABG in the morning (3) Pneumonia Qualifiers: Pneumonia type: due to unspecified organism Laterality: right Lung location: lower lobe of lung Qualified Code(s): J18.1 - Lobar pneumonia, unspecified organism Is this a current diagnosis for this admission?: Yes Plan: We will start the patient on cefepime (4) Wheezing Is this a current diagnosis for this admission?: Yes Plan: Continues to nebulizer treatments (5) Oral thrush Is this a current diagnosis for this admission?: Yes (6) Type 2 diabetes mellitus Qualifiers: Diabetes mellitus terminal operations manager insulin use: with terminal operations manager use Diabetes mellitus complication status: with hypoglycemia Diabetes mellitus complication detail: without coma Qualified Code(s): E11.649 - Type 2 diabetes mellitus with hypoglycemia without coma; Z79.4 - intermediate card tender (current) use of insulin Is this a current diagnosis for this admission?: Yes Plan: Continues a sliding scale - Time Time Spent with patient: 15-24 minutes Medications reviewed and adjusted accordingly: Yes Anticipated discharge: Home - Plan Summary Plan Summary: Continues to current medications
[2018-06-26] MEDS: MELATONIN 5 MG TABLET PO SCH (22:30)
[2018-06-27] MEDS: PANTOPRAZOLE SODIUM 40 MG TABLET.DR PO SCH (05:32)
[2018-06-27] MEDS: GABAPENTIN 300 MG CAPSULE PO SCH ×3 (05:32→21:33)
[2018-06-27] MEDS: CEFEPIME HCL 2 GM in DEXTROSE 5%-WATER 50 ML IV SCH ×2 (05:32→17:03)
[2018-06-27] MEDS: HYDROCODONE/ACETAMINOPHEN 5-325 MG TABLET PO PRN ×2 (06:11→21:35)
[2018-06-27] MEDS: INSULIN LISPRO 100 UNIT/ML 3 ML VIAL SUBCUT SCH ×4 (08:28→21:26)
[2018-06-27] MEDS: LOSARTAN POTASSIUM 50 MG TABLET PO SCH (09:55)
[2018-06-27] MEDS: METOPROLOL SUCCINATE 50 MG TAB.SR.24H PO SCH (09:55)
[2018-06-27] MEDS: SITAGLIPTIN PHOSPHATE 50 MG TABLET PO SCH (09:55)
[2018-06-27] MEDS: DULOXETINE HCL 30 MG CAPSULE.DR PO SCH ×2 (09:55→21:33)
[2018-06-27] MEDS: FERROUS SULFATE 325 MG TABLET PO SCH (09:55)
[2018-06-27] MEDS: FLUCONAZOLE 100 MG TABLET PO SCH (09:55)
[2018-06-27] MEDS: FLUTICASONE/UMECLIDIN/VILANTER 100-62.5-25 MCG/DOSE IH SCH (09:58)
[2018-06-27] MEDS: MELATONIN 5 MG TABLET PO SCH (21:32)
--- NOTE | 2018-06-27 21:34 | PDOC PROGRESS REPORT ---
Subjective Progress Note for:: 06/27/18 Subjective:: She has end-stage COPD with baseline wheezing, superimposed pneumonia, antibiotic be discontinued, she has been on antibiotics since admission Reason For Visit: LEFT LOWER LOBE PNEUMONIA,UTI,CHRONIC RENAL Physical Exam Vital Signs: Temp Pulse Resp BP Pulse Ox 98.3 F 71 18 129/63 H 99 06/27/18 20:00 06/27/18 20:00 06/27/18 20:00 06/27/18 20:00 06/27/18 20:00 Intake & Output 06/26/18 06/27/18 06/28/18 06:59 06:59 06:59 Intake Total 1055 1258 1010 Output Total 950 Balance 105 1258 1010 Weight 109.5 kg 110.4 kg General appearance: PRESENT: no acute distress Eye exam: PRESENT: PERRLA Respiratory exam: PRESENT: wheezes Cardiovascular exam: PRESENT: +S1, +S2 GI/Abdominal exam: PRESENT: soft Neurological exam: PRESENT: alert Results Laboratory Results: 06/25/18 05:00 06/25/18 05:00 06/11/18 06/11/18 06/12/18 04:00 04:00 16:30 Creatine Kinase 31 29 L CK-MB (CK-2) 0.39 Troponin I < 0.012 06/12/18 06/13/18 06/13/18 16:30 12:38 12:38 Creatine Kinase < 20 L CK-MB (CK-2) 0.99 0.73 Troponin I < 0.012 < 0.012 06/13/18 06/13/18 06/14/18 19:35 19:35 04:10 Creatine Kinase < 20 L < 20 L CK-MB (CK-2) 0.73 Troponin I < 0.012 06/14/18 04:10 Creatine Kinase CK-MB (CK-2) 0.56 Troponin I < 0.012 Impressions: Chest X-Ray 06/16/18 00:00 IMPRESSION: Right basilar pneumonia. copyright 2011 [employer]- All Rights Reserved Assessment & Plan - Diagnosis (1) Right lower lobe pneumonia Qualifiers: Pneumonia type: due to methicillin-sensitive Staphylococcus aureus (MSSA) Qualified Code(s): J15.211 - Pneumonia due to Methicillin susceptible Staphylococcus aureus Is this a current diagnosis for this admission?: Yes Plan: Discontinue IV antibiotic (2) Type 2 diabetes mellitus with complication Qualifiers: Diabetes mellitus intermediate project manager insulin use: with intermediate project manager use Qualified Co de(s): E11.8 - Type 2 diabetes mellitus with unspecified complications; Z79.4 - computer terminal operator (current) use of insulin Is this a current diagnosis for this admission?: Yes (3) Chronic respiratory failure Qualifiers: Respiratory failure complication: hypoxia and hypercapnia Qualified Code(s): J96.11 - Chronic respiratory failure with hypoxia; J96.12 - Chronic respiratory failure with hypercapnia Is this a current diagnosis for this admission?: Yes (4) Hemoptysis Is this a current diagnosis for this admission?: Yes
[2018-06-28] MEDS: PANTOPRAZOLE SODIUM 40 MG TABLET.DR PO SCH (05:05)
[2018-06-28] MEDS: GABAPENTIN 300 MG CAPSULE PO SCH ×3 (05:05→21:39)
[2018-06-28] MEDS: HYDROCODONE/ACETAMINOPHEN 5-325 MG TABLET PO PRN ×2 (05:05→21:39)
[2018-06-28] MEDS: IPRATROPIUM/ALBUTEROL 0.5-2.5 MG/3 ML AMPUL NEB PRN ×2 (07:20→13:46)
[2018-06-28] MEDS: INSULIN LISPRO 100 UNIT/ML 3 ML VIAL SUBCUT SCH ×4 (08:00→21:39)
[2018-06-28] MEDS: METOPROLOL SUCCINATE 50 MG TAB.SR.24H PO SCH (10:03)
[2018-06-28] MEDS: FERROUS SULFATE 325 MG TABLET PO SCH (10:04)
[2018-06-28] MEDS: FLUCONAZOLE 100 MG TABLET PO SCH (10:04)
[2018-06-28] MEDS: SITAGLIPTIN PHOSPHATE 50 MG TABLET PO SCH (10:04)
[2018-06-28] MEDS: LOSARTAN POTASSIUM 50 MG TABLET PO SCH (10:05)
[2018-06-28] MEDS: DULOXETINE HCL 30 MG CAPSULE.DR PO SCH ×2 (10:06→21:38)
[2018-06-28] MEDS: FLUTICASONE/UMECLIDIN/VILANTER 100-62.5-25 MCG/DOSE IH SCH (10:07)
[2018-06-28] MEDS: ACETAMINOPHEN 325 MG TABLET PO PRN (17:39)
[2018-06-28] MEDS: MELATONIN 5 MG TABLET PO SCH (21:38)
--- NOTE | 2018-06-28 21:44 | PDOC PROGRESS REPORT ---
Subjective Progress Note for:: 06/28/18 Subjective:: She has end-stage COPD with baseline wheezing, Reason For Visit: LEFT LOWER LOBE PNEUMONIA,UTI,CHRONIC RENAL Physical Exam Vital Signs: Temp Pulse Resp BP Pulse Ox 98.4 F 74 18 151/95 H 96 06/28/18 19:13 06/28/18 19:13 06/28/18 19:13 06/28/18 19:13 06/28/18 19:13 Intake & Output 06/27/18 06/28/18 06/29/18 06:59 06:59 06:59 Intake Total 1258 1810 800 Output Total 500 Balance 1258 1810 300 Weight 110.4 kg 109.7 kg General appearance: PRESENT: no acute distress Eye exam: PRESENT: PERRLA Respiratory exam: PRESENT: wheezes Cardiovascular exam: PRESENT: +S1, +S2 GI/Abdominal exam: PRESENT: soft Neurological exam: PRESENT: alert Results Laboratory Results: 06/25/18 05:00 06/25/18 05:00 06/11/18 06/11/18 06/12/18 04:00 04:00 16:30 Creatine Kinase 31 29 L CK-MB (CK-2) 0.39 Troponin I < 0.012 06/12/18 06/13/18 06/13/18 16:30 12:38 12:38 Creatine Kinase < 20 L CK-MB (CK-2) 0.99 0.73 Troponin I < 0.012 < 0.012 06/13/18 06/13/18 06/14/18 19:35 19:35 04:10 Creatine Kinase < 20 L < 20 L CK-MB (CK-2) 0.73 Troponin I < 0.012 06/14/18 04:10 Creatine Kinase CK-MB (CK-2) 0.56 Troponin I < 0.012 Impressions: Chest X-Ray 06/16/18 00:00 IMPRESSION: Right basilar pneumonia. copyright 2011 [employer] All Rights Reserved Assessment & Plan - Diagnosis (1) Right lower lobe pneumonia Qualifiers: Pneumonia type: due to methicillin-sensitive Staphylococcus aureus (MSSA) Qualified Code(s): J15.211 - Pneumonia due to Methicillin susceptible Staphylococcus aureus Is this a current diagnosis for this admission?: Yes (2) Type 2 diabetes mellitus with complication Qualifiers: Diabetes mellitus watermelon inspector insulin use: with [facility] use Qualified Code(s): E11.8 - Type 2 diabetes mellitus with unspecified complications; Z79.4 - ferry terminal agent (current) use of insulin Is this a current diagnosis for this admission?: Yes (3) Chronic respiratory failure Qualifiers: Respiratory failure complication: hypoxia and hypercapnia Qualified Code(s): J96.11 - Chronic respiratory failure with hypoxia; J96.12 - Chronic respiratory failure with hypercapnia Is this a current diagnosis for this admission?: Yes (4) Hemoptysis Is this a current diagnosis for this admission?: Yes
--- NOTE | 2018-06-28 22:26 | RADIOLOGY REPORT (SQ) ---
EXAM DESCRIPTION: XR SHOULDER 2 OR MORE VIEWS COMPLETED DATE/TME: 06/28/2018 00:00 CLINICAL HISTORY: rt shoulder pain COMPARISON: None FINDINGS: Three x-ray views of the right shoulder were submitted. There is no acute fracture or dislocation. Bone mineralization is within normal limits. There is no radiopaque foreign body material. There is a right central venous catheter with the tip ending at the level of the atrial caval junction IMPRESSION: No acute fracture or dislocation.
[2018-06-29] MEDS: HYDROCODONE/ACETAMINOPHEN 5-325 MG TABLET PO PRN ×3 (05:10→20:00)
[2018-06-29] MEDS: PANTOPRAZOLE SODIUM 40 MG TABLET.DR PO SCH (05:10)
[2018-06-29] MEDS: GABAPENTIN 300 MG CAPSULE PO SCH ×3 (05:10→21:57)
[2018-06-29] MEDS: IPRATROPIUM/ALBUTEROL 0.5-2.5 MG/3 ML AMPUL NEB PRN ×2 (07:27→13:12)
[2018-06-29] MEDS: INSULIN LISPRO 100 UNIT/ML 3 ML VIAL SUBCUT SCH ×4 (08:32→21:57)
[2018-06-29] MEDS: FLUTICASONE/UMECLIDIN/VILANTER 100-62.5-25 MCG/DOSE IH SCH (09:01)
[2018-06-29] MEDS: LOSARTAN POTASSIUM 50 MG TABLET PO SCH (09:03)
[2018-06-29] MEDS: FERROUS SULFATE 325 MG TABLET PO SCH (09:03)
[2018-06-29] MEDS: METOPROLOL SUCCINATE 50 MG TAB.SR.24H PO SCH (09:03)
[2018-06-29] MEDS: SITAGLIPTIN PHOSPHATE 50 MG TABLET PO SCH (09:03)
[2018-06-29] MEDS: DULOXETINE HCL 30 MG CAPSULE.DR PO SCH ×2 (09:04→21:57)
--- NOTE | 2018-06-29 19:11 | PDOC TRANSFER SUMMARY ---
General - Admit/Disc Date/PCP Admission Date/Primary Care Provider: 06/11/18 06:11 TOÑA MCLEAN MD Discharge Date: 06/30/18 - Discharge Diagnosis (1) Staphylococcus aureus pneumonia Is this a current diagnosis for this admission?: Yes (2) Right lower lobe pneumonia Is this a current diagnosis for this admission?: Yes (3) Type 2 diabetes mellitus with complication Is this a current diagnosis for this admission?: Yes (4) Chronic respiratory failure Is this a current diagnosis for this admission?: Yes (5) Hemoptysis Is this a current diagnosis for this admission?: Yes - Additional Information Resuscitation Status: Do Not Resuscitate Prescriptions: Empagliflozin [Jardiance] 25 mg PO DAILY #26467 tablet Nystatin [Mycostatin 500,000 Unit/5 ml Susp Udcup] 500,000 unit PO DAILY #186562 udc Home Medications: Albuterol Sulfate [Proair HFA Inhalation Aerosol 8.5 gm MDI] 1 puff IH Q4HP PRN 06/11/18 Duloxetine HCl [Cymbalta] 60 mg PO Q12 06/11/18 Fluticasone/Umeclidin/Vilanter [Trelegy 100-62.5-25 Mcg Ellipta 14 Dose/Dpi] 1 puff IH DAILY 06/11/18 Gabapentin [Neurontin] 600 mg PO Q8 06/11/18 Linagliptin [Tradjenta] 5 mg PO DAILY 06/11/18 Losartan Potassium [Cozaar 100 mg Tablet] 100 mg PO DAILY 06/11/18 Metoprolol Succinate [Toprol XL 100 mg Tablet] 100 mg PO DAILY 06/11/18 Omeprazole 40 mg PO DAILY 06/11/18 Valsartan/Hydrochlorothiazide [Diovan Hct 160-25 mg Tablet] 1 tab PO DAILY 06/11/18 Acetaminophen [Tylenol 325 mg Tablet] 650 mg PO Q6HP PRN tablet 06/29/18 Empagliflozin [Jardiance] 25 mg PO DAILY #[id number] tablet 06/29/18 Glucagon,Human Recombinant [Glucagen Inj 1 mg Vial] 1 mg IM PRN PRN vial 06/29/18 Insulin Lispro [Humalog Insulin (Lispro) 100 unit/mL] 0 - 12 unit SUBCUT ACHS unit 06/29/18 Ipratropium/Albuterol Sulfate [Duoneb 3 ml Ampul] 3 ml NEB RTQ6HP PRN vial.neb 06/29/18 Melatonin [Melatonin 5 mg Tablet] 5 mg PO QHS tablet 06/29/18 Nystatin [Mycostatin 500,000 Unit/5 ml Susp Udcup] 500,000 unit PO DAILY #[id number] udc 06/29/18 Pantoprazole Sodium [Protonix [address] Tablet] 40 mg PO Q6AM tablet. 06/29/18 History of Present Illness Admission Date/PCP: 06/11/18 06:11 TOÑA MCLEAN MD History of Present Illness: DARCY NAVA is a 73 year old female, Patient was admitted when she presented with pneumonia Hospital Course Hospital Course: She has a history of end-stage COPD, with baseline wheezing she was admitted for the management of staph aureus pneumonia, staph aureus was cultured from the sputum she was treated with IV antibiotic, she has very severe COPD requiring bronchodilators. Patient with history of multiple hospitalization, she has been very uncooperative lately with the use of trelegy because she said it causes oral thrush, she was advised to rinse her mouth after use of this inhaler but she said despite that she is a good oral thrush, she will use nystatin mouthwash swish and swallow whenever she uses the inhaler which is necessary to amelioriate the COPD exacerbation.The plan is to transfer patient to half-way for rehabilitation.She has staph aureus pneumonia that was methicillin sensitive Physical Exam Vital Signs: Temp Pulse Resp BP Pulse Ox 97.1 F 77 18 113/64 95 06/29/18 15:59 06/29/18 15:59 06/29/18 15:59 06/29/18 15:59 06/29/18 15:59 Intake & Output 06/28/18 06/29/18 06/30/18 06:59 06:59 06:59 Intake Total 1810 1400 1100 Output Total 1400 900 Balance 1810 0 200 Weight 109.7 kg 109.7 kg General appearance: PRESENT: no acute distress Head exam: PRESENT: atraumatic Eye exam: PRESENT: PERRLA Ear exam: PRESENT: normal external ear exam Respiratory exam: PRESENT: wheezes Cardiovascular exam: PRESENT: RRR, +S1, +S2 GI/Abdominal exam: PRESENT: normal bowel sounds, soft Rectal exam: PRESENT: deferred Extremities exam: PRESENT: full ROM Neurological exam: PRESENT: alert, CN II-XII grossly intact Psychiatric exam: PRESENT: appropriate affect, normal mood Skin exam: PRESENT: dry, intact, warm Results Laboratory Results: 06/25/18 05:00 06/25/18 05:00 06/11/18 06/11/18 06/12/18 04:00 04:00 16:30 Creatine Kinase 31 29 L CK-MB (CK-2) 0.39 Troponin I < 0.012 06/12/18 06/13/18 06/13/18 16:30 12:38 12:38 Creatine Kinase < 20 L CK-MB (CK-2) 0.99 0.73 Troponin I < 0.012 < 0.012 06/13/18 06/13/18 06/14/18 19:35 19:35 04:10 Creatine Kinase < 20 L < 20 L CK-MB (CK-2) 0.73 Troponin I < 0.012 06/14/18 04:10 Creatine Kinase CK-MB (CK-2) 0.56 Troponin I < 0.012 Impressions: Chest X-Ray 06/16/18 00:00 IMPRESSION: Right basilar pneumonia. copyright 2010 [employer]- All Rights Reserved Shoulder X-Ray 06/28/18 00:00 IMPRESSION: No acute fracture or dislocation. Qualifiers - * PATIENT BEING DISCHARGED WITH ANY OF THE FOLLOWING DIAGNOSIS: No
[2018-06-29] MEDS: MELATONIN 5 MG TABLET PO SCH (21:57)
[2018-06-30] MEDS: PANTOPRAZOLE SODIUM 40 MG TABLET.DR PO SCH (05:16)
[2018-06-30] MEDS: GABAPENTIN 300 MG CAPSULE PO SCH ×2 (05:16→13:12)
[2018-06-30] MEDS: INSULIN LISPRO 100 UNIT/ML 3 ML VIAL SUBCUT SCH ×2 (09:32→13:12)
[2018-06-30] MEDS: DULOXETINE HCL 30 MG CAPSULE.DR PO SCH (09:37)
[2018-06-30] MEDS: FLUTICASONE/UMECLIDIN/VILANTER 100-62.5-25 MCG/DOSE IH SCH (09:38)
[2018-06-30] MEDS: SITAGLIPTIN PHOSPHATE 50 MG TABLET PO SCH (09:38)
[2018-06-30] MEDS: LOSARTAN POTASSIUM 50 MG TABLET PO SCH (09:38)
[2018-06-30] MEDS: FERROUS SULFATE 325 MG TABLET PO SCH (09:38)
[2018-06-30] MEDS: METOPROLOL SUCCINATE 50 MG TAB.SR.24H PO SCH (09:38)
[2018-06-30 12:58] VITALS: BP 151/76
[2018-06-30] MEDS: HYDROCODONE/ACETAMINOPHEN 5-325 MG TABLET PO PRN (13:14)
== END 2018-06-30 15:46 | DRG 178 ==
LOC: ER 03:19 → EH 06:11 → 5 07:36
PROVIDERS: ADMIT Internal Medicine; ATTEND Internal Medicine Geriatric Medicine
PROC: 3E0F73Z Introduction of Anti-inflammatory into Respiratory Tract, Via Natural or Artificial Opening (ICD-10-PCS; 2018-06-11)
PROC: 02HV33Z Insertion of Infusion Device into Superior Vena Cava, Percutaneous Approach (ICD-10-PCS; principal; 2018-06-14)
DX: J15.211 Pneumonia due to Methicillin susceptible Staphylococcus aureus (principal); J96.12 Chronic respiratory failure with hypercapnia; I13.0 Hypertensive heart and chronic kidney disease with heart failure and stage 1 through stage 4 chronic kidney disease, or unspecified chronic kidney disease; I50.22 Chronic systolic (congestive) heart failure; J44.0 Chronic obstructive pulmonary disease with (acute) lower respiratory infection; L03.113 Cellulitis of right upper limb; R04.2 Hemoptysis; B37.0 Candidal stomatitis; N39.0 Urinary tract infection, site not specified; J96.11 Chronic respiratory failure with hypoxia; Z99.81 Dependence on supplemental oxygen; E11.22 Type 2 diabetes mellitus with diabetic chronic kidney disease; J44.9 Chronic obstructive pulmonary disease, unspecified; N18.3 Chronic kidney disease, stage 3 (moderate); F32.9 Major depressive disorder, single episode, unspecified; M19.90 Unspecified osteoarthritis, unspecified site; Z86.718 Personal history of other venous thrombosis and embolism; Z90.49 Acquired absence of other specified parts of digestive tract; Z90.710 Acquired absence of both cervix and uterus; Z83.3 Family history of diabetes mellitus; Z79.4 Long term (current) use of insulin; I87.2 Venous insufficiency (chronic) (peripheral); Z79.899 Other long term (current) drug therapy; Z79.84 Long term (current) use of oral hypoglycemic drugs
CPT/HCPCS: 36415; 71045; 71046; 71250; 80048; 80053; 80202; 81001; 82550; 82553; 82962; 84484; 85025; 87040; 87070; 87077; 87086; 87186; 87205; 93005; 93010; 94640; 99285; C1751; J0692; J0696; J1650; J1815; J2930; J3370; J3490; J7030; J7050; J7060; J7620

== ENCOUNTER 2018-07-01 16:39 | Emergency (ER) | payer MEDICARE, MEDICAID ==
--- NOTE | 2018-07-01 17:35 | ER Document Report ---
ED General - General Chief Complaint: Urinary Problem Stated Complaint: UNABLE TO URINATE Time Seen by Provider: 07/01/18 17:09 Primary Care Provider: TOÑA MCLEAN MD [Primary Care Provider] - Follow up as needed Notes: 73-year-old female with COPD, IDDM who is a resident of [facility] with recent discharge from this hospital yesterday presents to the emergency department for acute urinary retention times [address] Mclean instructed her to come to the emergency department for assessment after her facility was going to place a Gaines catheter. About 2 years ago. She denies fever, chills, nausea, vomiting complains of shortness of breath and wheezing, denies chest pain, denies diarrhea complains of inability urinate TRAVEL OUTSIDE OF THE [place] IN LAST 30 DAYS: No - Related Data Allergies/Adverse Reactions: propoxyphene [From Darvocet-N] Allergy (Verified 03/31/18 14:12) Delirium tapentadol [From Nucynta] Allergy (Verified 03/31/18 14:12) Delirium Pork/Porcine Containing Products Adverse Reaction (Mild, Verified 06/11/18 09:08) VOMITING Past Medical History - Social History Smoking Status: Never Smoker Chew tobacco use (# tins/day): No Frequency of alcohol use: None Drug Abuse: None Family History: Reviewed & Not Pertinent, COPD, DM, Malignancy - Brother with throat cancer, Other - Father with tuberculosis Patient has suicidal ideation: No Patient has homicidal ideation: No - Past Medical History Cardiac Medical History: Reports: Hx DVT, Hx Hypertension - ON MEDS Pulmonary Medical History: Reports: Hx Bronchitis, Hx COPD - USES NEB AND INHALER, Hx Pneumonia - 2 YRS AGO Neurological Medical History: Denies: Hx Cerebrovascular Accident Endocrine Medical History: Reports: Hx Diabetes Mellitus Type 2. Denies: Hx Graves' Disease Renal/ Medical History: Reports: Hx End Stage Renal Disease - Stage 3- NO DIALYSIS. Denies: Hx Kidney Stones, Hx Ovarian Cysts, Hx Peritoneal Dialysis, Hx Pelvic Inflammatory Disease Malignancy Medical History: Reports: Hx Ovarian Cancer - PRE-CANCEROUS, TOTAL HYST, QUINN SALPINGOOPHORECTOMY GI Medical History: Reports: Hx Hiatal Hernia. Denies: Hx Irritable Bowel, Hx Liver Failure, Hx Pancreatitis, Hx Ulcer Musculoskeletal Medical History: Reports Hx Arthritis, Denies Hx Multiple Sclerosis, Denies Hx Muscular Dystrophy Psychiatric Medical History: Reports: Hx Depression Denies: Hx Schizophrenia Traumatic Medical History: Denies: Hx Fractures Past Surgical History: Reports: Hx Abdominal Surgery, Hx Appendectomy, Hx Bowel Surgery - EX LAP, ILEOSTOMY, Hx Colostomy - History of colostomy revision , History of resection of the colon, Hx Hysterectomy, Hx Kidney (Renal Surgery) - Right kidney, Hx Orthopedic Surgery - left shoulder, Other - Recent history of extended right hemicolectomy with end ileostomy bag, rvsd - Immunizations Immunizations up to date: Yes Hx Diphtheria, Pertussis, Tetanus Vaccination: Yes Hx Pneumococcal Vaccination: 05/27/13 Review of Systems - Review of Systems Constitutional: See HPI EENT: No symptoms reported Cardiovascular: See HPI Respiratory: See HPI Gastrointestinal: See HPI Genitourinary: See HPI Female Genitourinary: No symptoms reported Musculoskeletal: No symptoms reported Skin: No symptoms reported Hematologic/Lymphatic: No symptoms reported Neurological/Psychological: No symptoms reported Physical Exam - Vital signs Vitals: Temp Pulse Resp BP Pulse Ox 98.6 F 82 18 135/65 H 99 07/01/18 16:49 07/01/18 16:49 07/01/18 16:49 07/01/18 16:49 07/01/18 16:49 - Notes Notes: PHYSICAL EXAMINATION: Reviewed vital signs and charting by RN GENERAL: Alert, interacts well. No acute distress. HEAD: Normocephalic, atraumatic. EYES: Pupils equal and round. Extraocular movements intact. ENT: Oral mucosa moist, tongue midline. NECK: Full range of motion. Supple. Trachea midline. LUNGS: Air movement seemed restricted, with mild end expiratory wheezes, no rales or rhonchi. No respiratory distress. HEART: Regular rate and rhythm. No murmur ABDOMEN: soft, non-tender. Non-distended. Bowel sounds present. no McBurney's point tenderness, no Chan sign. EXTREMITIES: Moves all 4 extremities spontaneously. No edema, No cyanosis. Normal distal neurovascular exam BACK: No CVAT NEUROLOGIC: Oriented and appropriate. Normal speech. PSYCH: Normal affect, normal mood. SKIN: Warm, dry, normal turgor. No rashes or lesions noted. Course - Re-evaluation Re-evalutation: 07/01/18 17:58 Overall well-appearing, sent in by Dr. Mclean from [facility] for acute urinary retention. Getting straight catheter urinalysis. Lab work. Getting DuoNeb x2 for shortness of breath. Will get chest x-ray. 07/01/18 18:00 PCT perform straight catheter to obtain urinalysis sample and she obtained 400 mL's of urine. 07/01/18 19:[address] Eastman. Will place a Gaines catheter. Patient is otherwise stable and no lab abnormalities. [facility] can manage Gaines catheters so patient will be stable to discharge to SNF. - Vital Signs Vital signs: Temp Pulse Resp BP Pulse Ox 98.6 F 82 23 H 159/55 H 95 07/01/18 16:49 07/01/18 16:49 07/01/18 19:02 07/01/18 19:02 07/01/18 19:02 - Laboratory Result Diagrams: 07/01/18 17:57 07/01/18 17:57 Laboratory results interpreted by me: 07/01/18 07/01/18 17:57 17:57 RBC 3.64 L Hgb 10.6 L Hct 32.1 L RDW 16.9 H Carbon Dioxide 35 H Albumin 3.0 L Discharge - Discharge Clinical Impression: Urinary retention Condition: Good Disposition: SNF-Other Additional Instructions: You were seen in the emergency department this evening for inability to urinate for urinary retention. All of your lab work was normal and your kidney function is fine. It is unclear why you are not able to urinate we have placed a Gaines catheter that the facility you live in will be able to manage. It is important to follow-up with Dr. Mclaen regarding this condition. If you develop fever, severe back pain, severe shortness of breath, chest pain, loss of bowel function, or have any other concerning problems please immediately return to the emergency department. Referrals: TOÑA MCLEAN MD [Primary Care Provider] - Follow up as needed
[2018-07-01] MEDS ORDERED: IPRATROPIUM/ALBUTEROL 0.5-2.5 MG/3 ML AMPUL NEB ONE ×2 (17:55→19:06)
[2018-07-01 18:02] LABS: ABSOLUTE BASOPHILS # (AUTO) 0.1 10^3/uL (0.0-0.2); ABSOLUTE EOSINOPHILS # (AUTO) 0.4 10^3/uL (0.0-0.6); ABSOLUTE MONOCYTES (AUTO) 0.8 10^3/uL (0.1-1.4); HEMATOCRIT 32.1 % (36.0-47.0); HEMOGLOBIN 10.6 g/dL (12.0-15.5); MEAN CORPUSCULAR HGB CONC 32.9 g/dL (32.0-36.0); TOTAL CELLS COUNTED % (AUTO) 100 %
[2018-07-01 18:08] LABS: ABSOLUTE NEUT (AUTO) 3.5 10^3/uL (1.7-8.2); BASOPHILS % (AUTO) 1.1 % (0-2); EOSINOPHILS % (AUTO) 5.6 % (0-6); LYMPHOCYTES % (AUTO) 29.8 % (13-45); MEAN CORPUSCULAR VOLUME 88 fl (80-97); PLATELET COUNT 352 10^3/uL (150-450); RED BLOOD COUNT 3.64 10^6/uL (3.72-5.28); RED CELL DISTRIBUTION WIDTH 16.9 % (11.5-14.0); SEGMENTED NEUTROPHILS % (AUTO) 51.5 % (42-78); WHITE BLOOD COUNT 6.8 10^3/uL (4.0-10.5)
[2018-07-01 18:16] LABS: APPEARANCE,URINE CLEAR; BILIRUBIN,URINE NEGATIVE (NEGATIVE); COLOR,URINE YELLOW; GLUCOSE, URINE NEGATIVE (NEGATIVE); KETONES,URINE NEGATIVE (NEGATIVE); LEUKOCYTE ESTERASE,URINE NEGATIVE (NEGATIVE); NITRITE,URINE NEGATIVE (NEGATIVE); PROTEIN,URINE NEGATIVE (NEGATIVE); URINE SPECIFIC GRAVITY 1.013; UROBILINOGEN,URINE NEGATIVE mg/dL (<2.0)
[2018-07-01 18:20] LABS: ALANINE AMINOTRANSFERASE 21 U/L (9-52); ALKALINE PHOSPHATASE 74 U/L (38-126); ANION GAP 5 (5-19); ASPARTATE AMINO TRANSFERASE 28 U/L (14-36); BILIRUBIN,DIRECT 0.3 mg/dL (0.0-0.4); BILIRUBIN,TOTAL 0.7 mg/dL (0.2-1.3); BLOOD UREA NITROGEN 8 mg/dL (7-20); CALCIUM 9.4 mg/dL (8.4-10.2); CARBON DIOXIDE 35 mmol/L (22-30); CHLORIDE 98 mmol/L (98-107); GLUCOSE 107 mg/dL (75-110); POTASSIUM 4.3 mmol/L (3.6-5.0); SODIUM 138.1 mmol/L (137-145); TOTAL PROTEIN 7.9 g/dL (6.3-8.2)
--- NOTE | 2018-07-01 19:30 | RADIOLOGY REPORT (SQ) ---
EXAM DESCRIPTION: CHEST SINGLE VIEW COMPLETED DATE/TIME: 07/01/2018 7:19 pm REASON FOR STUDY: SOB COMPARISON: 06/16/2018 EXAM PARAMETERS: NUMBER OF VIEWS: One view. TECHNIQUE: Single frontal radiographic view of the chest acquired. RADIATION DOSE: NA LIMITATIONS: None. FINDINGS: LUNGS AND PLEURA: Slight improvement in the right lung base. Left lung is clear. MEDIASTINUM AND HILAR STRUCTURES: No masses. Contour normal. HEART AND VASCULAR STRUCTURES: Heart normal in size. Normal vasculature. BONES: No acute findings. HARDWARE: None in the chest. OTHER: No other significant finding. IMPRESSION: Right basilar pneumonia. Slightly improved. TECHNICAL DOCUMENTATION: JOB ID: [id number]- All Rights Reserved Reading location - IP/workstation name: [email or web address]
[2018-07-01 21:44] VITALS: BP 148/80
== END 2018-07-01 21:37 ==
LOC: ER 16:39
DX: R33.9 Retention of urine, unspecified (principal); J44.9 Chronic obstructive pulmonary disease, unspecified; R06.02 Shortness of breath; E11.9 Type 2 diabetes mellitus without complications; I10 Essential (primary) hypertension; Z88.5 Allergy status to narcotic agent
CPT/HCPCS: 94640 ×2; 99284; 51701; 51702; 36415; 85025; 80053; 81001; 71045; A9270; J7620

== ENCOUNTER 2018-08-28 23:39 | Inpatient (IN) | payer MEDICARE, MEDICAID ==
[2018-08-28] MEDS: MAGNESIUM SULFATE/D5W 1 GM/100 ML RTUPB IV SCH (23:45)
[2018-08-28] MEDS ORDERED: ALBUTEROL SULFATE 0.083% NEB 2.5 MG/3 ML AMPUL NEB ONE (23:48)
[2018-08-28] MEDS ORDERED: MAGNESIUM SULFATE/D5W 2 GM/200 ML RTUPB IV ONE (23:49)
--- NOTE | 2018-08-28 23:50 | ER Document Report ---
ED General - General Stated Complaint: SHORTNESS OF BREATH Time Seen by Provider: 08/28/18 23:43 Cannot obtain history due to: Unstable vital signs, Altered mental status Notes: Patient is a 73-year-old female past medical history of COPD, recurrent pneumonia, presents by EMS in respiratory distress on CPAP. History is limited on initial assessment secondary to patient's degree of instability and distress. Apparently the patient began feeling short of breath tonight, could not find her inhaler, subsequently contacted EMS. EMS does report that the patient saturations were in the low 80s on 3 L by nasal cannula when they arrived. Maren ent was apparently hospitalized in May under similar circumstances. No other history can be obtained on initial evaluation. TRAVEL OUTSIDE OF THE [place] IN LAST 30 DAYS: No - Related Data Allergies/Adverse Reactions: propoxyphene [From Darvocet-N] Allergy (Verified 08/29/18 00:23) Delirium tapentadol [From Nucynta] Allergy (Verified 08/29/18 00:23) Delirium Pork/Porcine Containing Products Adverse Reaction (Mild, Verified 08/29/18 00:23) VOMITING Past Medical History - General Information source: Patient - Social History Smoking Status: Former Smoker Frequency of alcohol use: None Drug Abuse: None Lives with: Alone Family History: Reviewed & Not Pertinent, COPD, DM, Malignancy - Brother with throat cancer, Other - Father with tuberculosis - Past Medical History Cardiac Medical History: Reports: Hx DVT, Hx Hypertension - ON MEDS Pulmonary Medical History: Reports: Hx Bronchitis, Hx COPD - USES NEB AND INHALER, Hx Pneumonia - 2 YRS AGO Neurological Medical History: Denies: Hx Cerebrovascular Accident Endocrine Medical History: Reports: Hx Diabetes Mellitus Type 2. Denies: Hx Graves' Disease Renal/ Medical History: Reports: Hx End Stage Renal Disease - Stage 3- NO DIALYSIS. Denies: Hx Kidney Stones, Hx Ovarian Cysts, Hx Peritoneal Dialysis, Hx Pelvic Inflammatory Disease Malignancy Medical History: Reports: Hx Ovarian Cancer - PRE-CANCEROUS, TOTAL HYST, QUINN SALPINGOOPHORECTOMY GI Medical History: Reports: Hx Hiatal Hernia. Denies: Hx Irritable Bowel, Hx Liver Failure, Hx Pancreatitis, Hx Ulcer Musculoskeletal Medical History: Reports Hx Arthritis, Denies Hx Multiple Sclerosis, Denies Hx Muscular Dystrophy, Denies Hx Systemic Lupus Erythematosus Psychiatric Medical History: Reports: Hx Depression Denies: Hx Schizophrenia Traumatic Medical History: Denies: Hx Fractures Past Surgical History: Reports: Hx Abdominal Surgery, Hx Appendectomy, Hx Bowel Surgery - EX LAP, ILEOSTOMY, Hx Colostomy - History of colostomy revision , History of resection of the colon, Hx Hysterectomy, Hx Kidney (Renal Surgery) - Right kidney, Hx Orthopedic Surgery - left shoulder, Other - Recent history of extended right hemicolectomy with end ileostomy bag, rvsd - Immunizations Immunizations up to date: Yes Hx Diphtheria, Pertussis, Tetanus Vaccination: Yes Hx Pneumococcal Vaccination: 05/27/13 Review of Systems - Review of Systems Notes: Constitutional: Negative for fever. HENT: Negative for sore throat. Eyes: Negative for visual changes. Cardiovascular: Negative for chest pain. Respiratory: Positive for shortness of breath and cough Gastrointestinal: Negative for abdominal pain, positive for vomiting Genitourinary: Negative for dysuria. Musculoskeletal: Negative for back pain. Skin: Negative for rash. Neurological: Negative for headaches, weakness or numbness. 10 point ROS negative except as marked above and in HPI. Physical Exam - Vital signs Vitals: Resp Pulse Ox 18 95 08/28/18 23:48 08/28/18 23:48 Interpretation: Tachycardic, Hypoxic, Tachypneic Notes: PHYSICAL EXAMINATION: GENERAL: Ill in appearance, in apparent respiratory distress HEAD: Atraumatic, normocephalic. EYES: Pupils equal round and reactive to light, extraocular movements intact, sclera anicteric, conjunctiva are normal. ENT: nares patent, oropharynx clear without exudates. Moderately dry mucous membranes. NECK: Normal range of motion, supple without lymphadenopathy LUNGS: Moderate respiratory distress, diminished air movement in all ramos, rales and coarse wheezes throughout. No B-lines on pleural ultrasound., HEART: Regular rate and rhythm without murmurs, No regional wall motion abnormality or evidence of pericardial effusion on bedside echocardiogram. ABDOMEN: Soft, nontender, normoactive bowel sounds. No guarding, no rebound. No masses appreciated. EXTREMITIES: Normal range of motion, trace edema in the bilateral lower extreme knees that is equal and symmetric no cyanosis. NEUROLOGICAL: No focal neurological deficits. Moves all extremities spontaneously and on command. PSYCH: Mildly somnolent SKIN: Warm, Dry, normal turgor, no rashes or lesions noted. Course - Re-evaluation Re-evalutation: 08/28/18 23:49 Documentation is delayed from initial assessment as I medially came to this patient's bedside at time of her presentation. In summary the patient arrives in respiratory distress on CPAP by EMS. Initially saturating in the low 80s on 3 L by nasal cannula which is her normal oxygen supplementation. In obvious distress. Was given nebulizers in route, IM Solu-Medrol, transitioned to CPAP when her work of breathing was not improving. Bedside ultrasound does not demonstrate any evidence of B-lines. Pericardial ultrasound without evidence of pericardial effusion or obvious regional wall motion abnormality. Chest x-ray, labs are pending. Patient is in guarded condition will be reassessed at regular intervals. IV magnesium and ongoing nebulous will be administered. She will continue on BiPAP. 08/29/18 00:27 Patient's blood pressure is somewhat down trended currently 84 on 46. We are beginning IV fluid resuscitation. The patient also has been noted to have a marketed leukocytosis, concern for pneumonia particular given her prominent cough. The patient has been started on levofloxacin. 08/29/18 01:09 Labs demonstrate acute renal failure. Patient's hypotension has continued to persist despite fluid resuscitation. Central line will be placed and will proceed with norepinephrine infusion. I have continued to be in out of the patient's room for frequent reassessments and will continue to do so. Her status remains quite guarded. 08/29/18 01:48 Patient central line placement completed without complication or difficulty. Chest x-ray is pending. Chest x-ray per radiology demonstrates a new left base pneumonitis. We discussed the patient's primary Dr. Lizarraga for hospitalization to ICU. - Vital Signs Vital signs: Temp Pulse Resp BP Pulse Ox 97.6 F 21 H 96/71 L 92 08/29/18 00:07 08/29/18 01:50 08/29/18 01:50 08/29/18 01:50 - Laboratory Result Diagrams: 08/28/18 23:40 08/28/18 23:40 Laboratory results interpreted by me: 08/28/18 08/28/18 08/28/18 23:40 23:40 23:40 WBC 26.9 H RDW 16.1 H Seg Neuts % (Manual) 82 H Band Neutrophils % 1 L Abs Neuts (Manual) 22.3 H VBG pCO2 VBG HCO3 Sodium 129.2 L Chloride 84 L BUN 27 H Creatinine 1.74 H Est GFR ( Amer) 35 L Est GFR (Non-Af Amer) 29 L Glucose 225 H POC Glucose Lactic Acid 2.8 H NT-Pro-B Natriuret Pep Total Protein 8.5 H 08/28/18 08/28/18 08/29/18 23:40 23:40 00:34 WBC RDW Seg Neuts % (Manual) Band Neutrophils % Abs Neuts (Manual) VBG pCO2 67.2 H* VBG HCO3 32.2 H Sodium Chloride BUN Creatinine Est GFR ( Amer) Est GFR (Non-Af Amer) Glucose POC Glucose 279 H Lactic Acid NT-Pro-B Natriuret Pep 4780 H Total Protein - Diagnostic Test Radiology reviewed: Image reviewed, Reports reviewed Radiology results interpreted by me: 08/29/18 02:30 Chest x-ray: Left basilar infiltrate. Chest x-ray to [place] in place in the right atrium Procedures - Central Line Right Internal jugular Consent obtained: No - Emergent Central line pre-insertion: Sterile PPE donned, Chloraprep applied, Sterile drapes applied Central line lumen type: Triple Anesthetic type: 1% Lidocaine mL's of anesthesia: 4 Ultrasound guided: Yes CM at insertion site: 20 Line secured with sutures: Yes Central line post-insertion: Blood return from lumens, Biopatch applied, Sutured, Sterile dressing applied, Position confirmed w/ CXR Number of attempts: 1 Complications: No Critical Care Note - Critical Care Note Total time excluding time spent on procedures (mins): 75 Comments: Critical care time spent obtaining history from patient or surrogate, discussions with consultants, development of treatment plan with patient or surrogate, evaluation of patient's response to treatment, examination of patient, ordering and performing treatments and interventions, ordering and review of laboratory studies, re-evaluation of patient's condition, ordering and review of radiographic studies and review of old charts Discharge - Discharge Clinical Impression: Severe sepsis, COPD exacerbation, Acute and chronic respiratory failure with hypoxia Left lower lobe pneumonia Qualifiers: Pneumonia type: due to unspecified organism Qualified Code(s): J18.1 - Lobar pneumonia, unspecified organism Hypotension Qualifiers: Hypotension type: unspecified hypotension type Qualified Code(s): I95.9 - Hypotension, unspecified Condition: Critical Disposition: ADMITTED INPATIENT Admitting Provider: [facility] Admitted: ICU
[2018-08-29] MEDS: MAGNESIUM SULFATE/D5W 1 GM/100 ML RTUPB IV SCH
[2018-08-29 00:07] LABS: HEMATOCRIT 38.1 % (36.0-47.0); HEMOGLOBIN 12.6 g/dL (12.0-15.5); MEAN CORPUSCULAR HEMOGLOBIN 27.6 pg (27.0-33.4); MEAN CORPUSCULAR HGB CONC 33.1 g/dL (32.0-36.0); MEAN CORPUSCULAR VOLUME 83 fl (80-97); PLATELET COUNT 421 10^3/uL (150-450); RED BLOOD COUNT 4.57 10^6/uL (3.72-5.28); RED CELL DISTRIBUTION WIDTH 16.1 % (11.5-14.0); WHITE BLOOD COUNT 26.9 10^3/uL (4.0-10.5)
[2018-08-29 00:15] LABS: VENOUS BLOOD BASE EXCESS 3.7 mmol/L; VENOUS BLOOD HCO3 32.2 mmol/L (20-32); VENOUS BLOOD PH 7.3 (7.30-7.42)
[2018-08-29 00:21] LABS: ABSOLUTE LYMPHOCYTES# (MANUAL) 3.5 10^3/uL (0.5-4.7); ABSOLUTE MONOCYTES # (MANUAL) 0.8 10^3/uL (0.1-1.4); BAND NEUTROPHILS % (MANUAL) 1 % (3-5); BASOPHILS % (MANUAL) 0 % (0-2); EOSINOPHILS % (MANUAL) 1 % (0-6); LYMPHOCYTES % (MANUAL) 13 % (13-45); MONOCYTES % (MANUAL) 3 % (3-13); PLATELET COMMENT ADEQUATE; SEGMENTED NEUTROPHILS % (MAN) 82 % (42-78); TOTAL CELLS COUNTED 100; TOXIC VACUOLATION PRESENT
[2018-08-29 00:22] LABS: ANISOCYTOSIS 1+; POIKILOCYTOSIS 1+; POLYCHROMASIA SLIGHT
[2018-08-29] MEDS ORDERED: RINGERS SOLUTION,LACTATED 1,000 ML IV ONE ×2 (00:24→04:44)
[2018-08-29 00:25] LABS: ALANINE AMINOTRANSFERASE 23 U/L (9-52); ALBUMIN 4.3 g/dL (3.5-5.0); ALKALINE PHOSPHATASE 107 U/L (38-126); ANION GAP 15 (5-19); ASPARTATE AMINO TRANSFERASE 33 U/L (14-36); BILIRUBIN,DIRECT 0.4 mg/dL (0.0-0.4); BLOOD UREA NITROGEN 27 mg/dL (7-20); CALCIUM 9.7 mg/dL (8.4-10.2); CARBON DIOXIDE 30 mmol/L (22-30); CHLORIDE 84 mmol/L (98-107); GLUCOSE 225 mg/dL (75-110); POTASSIUM 4.4 mmol/L (3.6-5.0); SODIUM 129.2 mmol/L (137-145); TOTAL PROTEIN 8.5 g/dL (6.3-8.2); VENOUS BLOOD PCO2 67.2 mmHg (35-63)
[2018-08-29] MEDS ORDERED: LEVOFLOXACIN 750 MG/D5W RTU 750 MG/150 ML RTUPB IV ONE (00:26)
[2018-08-29 00:37] LABS: NT PRO BNP 4780 pg/mL (5-900)
[2018-08-29 00:42] LABS: TROPONIN I < 0.012 ng/mL
[2018-08-29] MEDS ORDERED: DEXTROSE 5%-WATER 250 ML with NOREPINEPHRINE BITARTRATE 4 MG IV PRN ×4 (01:08→02:30)
[2018-08-29] MEDS ORDERED: NOREPINEPHRINE BITARTRATE INJ/PF 4 MG/4 ML SDV IV ONE (01:08)
--- NOTE | 2018-08-29 01:24 | RADIOLOGY REPORT (SQ) ---
EXAM DESCRIPTION: XR CHEST 1 VIEW COMPLETED DATE/TME: 08/28/2018 23:47 CLINICAL HISTORY: 73 years, Female, sob COMPARISON: 07/01/2018 chest NUMBER OF VIEWS: 1 TECHNIQUE: Portable chest LIMITATIONS: None. FINDINGS: Continued improvement in previously noted right basilar pneumonia. The heart size is normal. No pneumothorax. New from the prior is equivocal reticulonodular change left lung base. IMPRESSION: Continued improved aeration of the right lung base with new reticulonodular change left lung base consistent with pneumonitis copyright 2010 [employer]- All Rights Reserved
--- NOTE | 2018-08-29 02:10 | RADIOLOGY REPORT (SQ) ---
EXAM DESCRIPTION: XR CHEST 1 VIEW COMPLETED DATE/TME: 08/29/2018 00:00 CLINICAL HISTORY: 73 years, Female, CL PLACEMENT COMPARISON: 08/29/2018 chest at 1:00 AM NUMBER OF VIEWS: 1 TECHNIQUE: Portable chest LIMITATIONS: None. FINDINGS: Heart size normal. Central venous catheter. The tip is in the right atrium. No pneumothorax. Osteopenia. Lungs are clear IMPRESSION: Tip of the central line in the right atrium. Lungs are clear copyright 2010 [employer]- All Rights Reserved
[2018-08-29] MEDS ORDERED: MAGNESIUM HYDROXIDE SUSP 30 ML UDCUP PO PRN (02:30)
[2018-08-29] MEDS ORDERED: PIPERACILLIN SODIUM/TAZOBACTAM 4.5 GM in NORMAL SALINE 100 ML IV SCH ×2 (03:00→12:00)
[2018-08-29 03:24] LABS: INTERNATIONAL RATION (INR) 1.01; PROTHROMBIN TIME 13.8 SEC (11.4-15.4)
[2018-08-29 03:28] LABS: ARTERIAL BLOOD BASE EXCESS 0.4 mmol/L; ARTERIAL BLOOD FIO2 30%; ARTERIAL BLOOD H2CO3 1.57 mmol/L (1.05-1.35); ARTERIAL BLOOD O2 SATURATION 95.4 % (94-98); ARTERIAL BLOOD PCO2 52.2 mmHg (35-45); ARTERIAL BLOOD PH 7.33 (7.35-7.45); ARTERIAL BLOOD PO2 82.8 mmHg (80-100); ARTERIAL BLOOD TOTAL CO2 28.6 mmol/L (21-25)
[2018-08-29] MEDS: RINGERS SOLUTION,LACTATED 1,000 ML IV PRN ×2 (04:15→15:10)
[2018-08-29 04:52] LABS: APPEARANCE,URINE CLEAR; BILIRUBIN,URINE NEGATIVE (NEGATIVE); COLOR,URINE YELLOW; GLUCOSE, URINE >=500 mg/dL (NEGATIVE); KETONES,URINE NEGATIVE (NEGATIVE); LEUKOCYTE ESTERASE,URINE TRACE (NEGATIVE); NITRITE,URINE NEGATIVE (NEGATIVE); PROTEIN,URINE NEGATIVE (NEGATIVE); URINE SPECIFIC GRAVITY 1.017; UROBILINOGEN,URINE NEGATIVE mg/dL (<2.0)
[2018-08-29] MEDS: PANTOPRAZOLE SODIUM 40 MG TABLET.DR PO SCH ×2 (06:16→16:57)
--- NOTE | 2018-08-29 06:38 | EKG REPORT ---
SEVERITY:- ABNORMAL ECG - SINUS RHYTHM LEFT ANTERIOR FASCICULAR BLOCK BORDERLINE PROLONGED QT INTERVAL : Confirmed by: Kevin Morales MD 29-Aug-2018 06:38:09
[2018-08-29] MEDS: ENOXAPARIN SODIUM INJ 40 MG/0.4 ML DISP.SYRIN SUBCUT SCH (10:08)
[2018-08-29] MEDS ORDERED: DEXTROSE 50%-WATER SYRINGE 12.5 GM/25 ML DOSE IV PRN (10:30)
[2018-08-29] MEDS ORDERED: DEXTROSE 40% GEL 15 GM TUBE PO PRN (10:30)
[2018-08-29] MEDS ORDERED: GLUCAGON,HUMAN RECOMB 1 MG INJ IM PRN (10:30)
[2018-08-29] MEDS ORDERED: DEXTROSE 50%-WATER SYRINGE 25 GM/50 ML DOSE IV PRN (10:30)
[2018-08-29] MEDS ORDERED: DEXTROSE 40% GEL 15 GM TUBE X 2 PO PRN (10:30)
[2018-08-29] MEDS: INSULIN LISPRO 100 UNIT/ML 3 ML VIAL SUBCUT SCH ×3 (10:57→21:33)
[2018-08-29] MEDS: PIPERACILLIN SODIUM/TAZOBACTAM 3.375 GM in NORMAL SALINE 100 ML IV SCH ×3 (12:04→23:08)
[2018-08-29] MEDS: LEVALBUTEROL HCL NEB 1.25 MG/3 ML AMPUL NEB PRN (14:31)
[2018-08-29] MEDS: FUROSEMIDE INJ/PF 40 MG/4 ML SDV IV SCH (15:14)
[2018-08-29] MEDS: HYDROCODONE/ACETAMINOPHEN 5-325 MG TABLET PO PRN ×2 (15:15→19:24)
--- NOTE | 2018-08-29 18:22 | RADIOLOGY REPORT (SQ) ---
EXAM DESCRIPTION: CT CHEST WITHOUT COMPLETED DATE/TIME: 08/29/2018 5:48 pm REASON FOR STUDY: pneumonia COMPARISON: None. TECHNIQUE: CT scan performed of the chest without intravenous contrast. Images reviewed with lung, soft tissue and bone windows. Reconstructed coronal and sagittal MPR images reviewed. All images st ored on PACS. All CT scanners at this facility use dose modulation, iterative reconstruction, and/or weight based d osing when appropriate to reduce radiation dose to as low as reasonably achievable (ALARA). [facility]: Dose Right [facility]: CareDose [facility]: Dose Right [facility]: Teradose 4D [facility]: [employer] RADIATION DOSE: CT Rad equipment meets quality standard of care and radiation dose reduction techniq ues were employed. CTDIvol: 16.6 mGy. DLP: 668 mGy-cm. mGy. LIMITATIONS: No technical limitations. FINDINGS: LUNGS AND PLEURA: There is very limited peripheral opacification in the right lower lobe. There is also an area of peripheral opacification in the lingula. Ill-defined opacification is seen in the left lower lobe. HILAR AND MEDIASTINAL STRUCTURES: No identified masses or abnormal nodes. No obvious aneurysm. HEART AND VASCULAR STRUCTURES: No aneurysm. No pericardial effusion. UPPER ABDOMEN: No significant findings. Limited exam. THYROID AND OTHER SOFT TISSUES: The thyroid gland is heterogeneous. BONES: No significant finding. HARDWARE: None in the chest. OTHER: No other significant findings. IMPRESSION: 1. There is ill-defined opacification bilaterally as described. Cannot exclude an atyp ical pneumonia. 2. The thyroid gland is heterogeneous. TECHNICAL DOCUMENTATION: JOB ID: [id number] Quality ID # [id number]: Final reports with documentation of one or more dose reduction techniques (e.g., Au tomated exposure control, adjustment of the mA and/or kV according to patient size, use of iterative reconstruction technique) 2010 [employer]- All Rights Reserved Reading location - IP/workstation name: [email or web address]
--- NOTE | 2018-08-29 21:12 | PDOC H&P ---
History of Present Illness Admission Date/PCP: 08/29/18 02:15 TOÑA MCLEAN MD History of Present Illness: DARCY NAVA is a 73 year old female, She came to the emergency room last night for evaluation of shortness of breath, she was transported by EMS for evaluation of respiratory distress, she was on CPAP machine. When EMS arrived at patient's residence the oxygen saturation was in the low 80s on 3 L nasal cannula. She recently was in the alf for rehabilitation, she was just discharged from the alf after prolonged hospitalization. She has very severe ch ronic obstructive lung disease with increased predisposition to have pneumonia. In the emergency room she was evaluated and managed with the dilators, Solu- Medrol she was also hypotensive she required boluses of IV fluid the hemogram revealed severe leukocytosis the WBC was 26,000 with a left shift there was predominantly neutrophils, chest x-ray suggests pneumonia she also was started on vasopressor in the emergency room with intravenous norepinephrine.She was also found to have azotemia, serum creatinine 1.7. Patient is well-known to me she has very severe COPD Past Medical History Cardiac Medical History: Reports: DVT, Hypertension - ON MEDS Pulmonary Medical History: Reports: Bronchitis, Chronic Obstructive Pulmonary D isease (COPD) - USES NEB AND INHALER, Pneumonia - 2 YRS AGO Endocrine Medical History: Reports: Diabetes Mellitus Type 2 Renal/ Medical History: Reports: Chronic Kidney Disease GI Medical History: Reports: Hiatal Hernia Musculoskeltal Medical History: Reports: Arthritis Psychiatric Medical History: Reports: Depression Hematology: Reports: Anemia Past Surgical History Past Surgical History: Reports: Appendectomy, Colostomy - History of colostomy revision , History of resection of the colon, Hysterectomy, Orthopedic Surgery - left shoulder, Other - Recent history of extended right hemicolectomy with end ileostomy bag, rvsd Social History Lives with: Alone Smoking Status: Former Smoker Frequency of Alcohol Use: None Hx Recreational Drug Use: No Drugs: None Hx Prescription Drug Abuse: No Family History Family History: Reviewed & Not Pertinent, COPD, DM, Malignancy - Brother with throat cancer, Other - Father with tuberculosis Parental Family History Reviewed: Yes Children Family History Reviewed: Yes Sibling(s) Family History Reviewed.: Yes Medication/Allergy Home Medications: Acetaminophen [Tylenol 325 mg Tablet] 325 mg PO Q4HP PRN 08/29/18 Acetaminophen with Codeine [Acetaminophen-Cod #4 Tablet] 1 tab PO Q6HP PRN 08/29/18 Albuterol Sulfate [Proair HFA Inhalation Aerosol 8.5 gm MDI] 1 puff IH Q4HP PRN 08/29/18 Aripiprazole [Abilify 2 mg Tablet] 2 mg PO DAILY 08/29/18 Bethanechol Chloride [Urecholine 10 mg Tablet] 10 mg PO MEALS 08/29/18 Duloxetine HCl [Cymbalta] 60 mg PO Q12 08/29/18 Empagliflozin [Jardiance] 25 mg PO DAILY 08/29/18 Fluticasone/Umeclidin/Vilanter [Trelegy 100-62.5-25 Mcg Ellipta 14 Dose/Dpi] 1 puff IH DAILY 08/29/18 Gabapentin [Neurontin] 600 mg PO Q8 08/29/18 Insulin Lispro [Humalog Kwikpen U-100] 0 units SQ .PERSLIDINGSCALE 08/29/18 Linagliptin [Tradjenta] 5 mg PO DAILY 08/29/18 Losartan Potassium [Cozaar 100 mg Tablet] 100 mg PO DAILY 08/29/18 Melatonin [Melatonin 5 mg Tablet] 5 mg PO HSP PRN 08/29/18 Metoprolol Succinate [Toprol XL 100 mg Tablet] 100 mg PO DAILY 08/29/18 Omeprazole 40 mg PO DAILY 08/29/18 Pantoprazole Sodium [Protonix [address] Tablet] 40 mg PO DAILY 08/29/18 Pitavastatin Calcium [Livalo] 4 mg PO QHS 08/29/18 Semaglutide [Ozempic] 0.5 mg SQ TH 08/29/18 Valsartan/Hydrochlorothiazide [Diovan Hct 160-25 mg Tablet] 1 tab PO DAILY 08/29/18 Allergies/Adverse Reactions: Iodinated Contrast- Oral and IV Dye Allergy (Verified 08/29/18 03:36) propoxyphene [From Darvocet-N] Allergy (Verified 08/29/18 00:23) Delirium tapentadol [From Nucynta] Allergy (Verified 08/29/18 00:23) Delirium Pork/Porcine Containing Products Adverse Reaction (Mild, Verified 08/29/18 00:23 ) VOMITING Review of Systems Constitutional: ABSENT: chills, fever(s), headache(s), weight gain, weight loss Eyes: ABSENT: visual disturbances Ears: ABSENT: hearing changes Cardiovascular: PRESENT: orthropnea. ABSENT: chest pain, dyspnea on exertion, edema, palpitations Respiratory: PRESENT: cough, dyspnea, sputum. ABSENT: hemoptysis Gastrointestinal: ABSENT: abdominal pain, constipation, diarrhea, hematemesis, hematochezia, nausea, vomiting Genitourinary: ABSENT: dysuria, hematuria Musculoskeletal: ABSENT: joint swelling Integumentary: ABSENT: rash, wounds Neurological: ABSENT: abnormal gait, abnormal speech, confusion, dizziness, focal weakness, syncope Psychiatric: ABSENT: anxiety, depression, homidical ideation, suicidal ideation Endocrine: ABSENT: cold intolerance, heat intolerance, menstrual abnormalities, polydipsia, polyuria Hematologic/Lymphatic: ABSENT: easy bleeding, easy bruising, lymphadenopathy Physical Exam Vital Signs: Temp Pulse Resp BP Pulse Ox 98.6 F 86 22 H 109/74 100 08/29/18 19:36 08/29/18 19:36 08/29/18 19:36 08/29/18 19:36 08/29/18 19:36 Intake & Output 08/28/18 08/29/18 08/30/18 06:59 06:59 06:59 Intake Total 2671 1340 Output Total 875 970 Balance 1796 370 Weight 108.3 kg General appearance: PRESENT: severe distress Head exam: PRESENT: atraumatic, normocephalic Eye exam: PRESENT: PERRLA Mouth exam: PRESENT: moist Neck exam: PRESENT: full ROM Respiratory exam: PRESENT: wheezes Cardiovascular exam: PRESENT: +S1, +S2 Vascular exam: PRESENT: normal capillary refill GI/Abdominal exam: PRESENT: normal bowel sounds, soft Rectal exam: PRESENT: deferred Neurological exam: PRESENT: alert, CN II-XII grossly intact. ABSENT: motor sensory deficit Psychiatric exam: PRESENT: appropriate affect, normal mood Skin exam: PRESENT: dry, intact, warm. ABSENT: cyanosis, rash Results Laboratory Results: 08/28/18 23:40 08/28/18 23:40 08/28/18 08/28/18 08/28/18 23:40 23:40 23:40 WBC 26.9 H RBC 4.57 Hgb 12.6 Hct 38.1 MCV 83 MCH 27.6 MCHC 33.1 RDW 16.1 H Plt Count 421 Seg Neutrophils % Not Reportable Lymphocytes % Not Reportable Monocytes % Not Reportable Eosinophils % Not Reportable Basophils % Not Reportable Absolute Neutrophils Not Reportable Absolute Lymphocytes Not Reportable Absolute Monocytes Not Reportable Absolute Eosinophils Not Reportable Absolute Basophils Not Reportable Carbonic Acid HCO3/H2CO3 Ratio ABG pH ABG pCO2 ABG pO2 ABG HCO3 ABG O2 Saturation ABG Base Excess VBG pH VBG pCO2 VBG HCO3 VBG Base Excess FiO2 Sodium 129.2 L Potassium 4.4 Chloride 84 L Carbon Dioxide 30 Anion Gap 15 BUN 27 H Creatinine 1.74 H Est GFR ( Amer) 35 L Est GFR (Non-Af Amer) 29 L Glucose 225 H Lactic Acid 2.8 H Calcium 9.7 Total Bilirubin 1.0 AST 33 ALT 23 Alkaline Phosphatase 107 Total Protein 8.5 H Albumin 4.3 Urine Color Urine Appearance Urine pH Ur Specific P[place] Urine Protein Urine Glucose (UA) Urine Ketones Urine Blood Urine Nitrite Ur Leukocyte Esterase Urine WBC (Auto) Urine RBC (Auto) 08/28/18 08/29/18 08/29/18 23:40 03:13 04:11 WBC RBC Hgb Hct MCV MCH MCHC RDW Plt Count Seg Neutrophils % Lymphocytes % Monocytes % Eosinophils % Basophils % Absolute Neutrophils Absolute Lymphocytes Absolute Monocytes Absolute Eosinophils Absolute Basophils Carbonic Acid 1.57 H HCO3/H2CO3 Ratio 17:1 ABG pH 7.33 L ABG pCO2 52.2 H ABG pO2 82.8 ABG HCO3 27.0 H ABG O2 Saturation 95.4 ABG Base Excess 0.4 VBG pH 7.30 VBG pCO2 67.2 H* VBG HCO3 32.2 H VBG Base Excess 3.7 FiO2 30% Sodium Potassium Chloride Carbon Dioxide Anion Gap BUN Creatinine Est GFR ( Amer) Est GFR (Non-Af Amer) Glucose Lactic Acid Calcium Total Bilirubin AST ALT Alkaline Phosphatase Total Protein Albumin Urine Color YELLOW Urine Appearance CLEAR Urine pH 5.0 Ur Specific [place] 1.017 Urine Protein NEGATIVE Urine Glucose (UA) >=500 H Urine Ketones NEGATIVE Urine Blood NEGATIVE Urine Nitrite NEGATIVE Ur Leukocyte Esterase TRACE H Urine WBC (Auto) 12 Urine RBC (Auto) 1 08/29/18 05:10 WBC RBC Hgb Hct MCV MCH MCHC RDW Plt Count Seg Neutrophils % Lymphocytes % Monocytes % Eosinophils % Basophils % Absolute Neutrophils Absolute Lymphocytes Absolute Monocytes Absolute Eosinophils Absolute Basophils Carbonic Acid HCO3/H2CO3 Ratio ABG pH ABG pCO2 ABG pO2 ABG HCO3 ABG O2 Saturation ABG Base Excess VBG pH VBG pCO2 VBG HCO3 VBG Base Excess FiO2 Sodium Potassium Chloride Carbon Dioxide Anion Gap BUN Creatinine Est GFR ( Amer) Est GFR (Non-Af Amer) Glucose Lactic Acid 1.7 Calcium Total Bilirubin AST ALT Alkaline Phosphatase Total Protein Albumin Urine Color Urine Appearance Urine pH Ur Specific P[place] Urine Protein Urine Glucose (UA) Urine Ketones Urine Blood Urine Nitrite Ur Leukocyte Esterase Urine WBC (Auto) Urine RBC (Auto) 08/28/18 08/28/18 08/28/18 23:40 23:40 23:40 Creatine Kinase 77 CK-MB (CK-2) 1.90 Troponin I < 0.012 NT-Pro-B Natriuret Pep 4780 H 08/29/18 05:10 Creatine Kinase CK-MB (CK-2) Troponin I < 0.012 NT-Pro-B Natriuret Pep Impressions: Chest CT 08/29/18 00:00 IMPRESSION: 1. There is ill-defined opacification bilaterally as described. Cannot exclude an atypical pneumonia. 2. The thyroid gland is heterogeneous. Chest X-Ray 08/29/18 00:00 IMPRESSION: Tip of the central line in the right atrium. Lungs are clear copyright 2011 [employer]- All Rights Reserved Assessment & Plan - Diagnosis (1) Acute hypercapnic respiratory failure Is this a current diagnosis for this admission?: Yes Plan: Patient required noninvasive positive pressure ventilation, BiPAP (2) Healthcare-associated pneumonia Is this a current diagnosis for this admission?: Yes Plan: She has healthcare associated pneumonia, she just got discharged from the [facility] home after prolonged hospital admission, she will be treated with IV antibiotic to cover gram-negative organisms and also MRSA (3) Hypotension Qualifiers: Hypotension type: unspecified hypotension type Qualified Code(s): I95.9 - Hypotension, unspecified Is this a current diagnosis for this admission?: Yes Plan: She has low blood pressure, she was treated with a bolus of normal saline at 30 cc/kg in the emergency room continue Ringer's lactate (4) Sepsis Qualifiers: Sepsis type: sepsis due to unspecified organism Qualified Code(s): A41.9 - Sepsis, unspecified organism Is this a current diagnosis for this admission?: Yes (5) COPD with acute exacerbation Is this a current diagnosis for this admission?: Yes Plan: Treat with bronchodilators (6) Acute kidney injury Is this a current diagnosis for this admission?: Yes (7) Diabetes mellitus type 2 in obese Is this a current diagnosis for this admission?: Yes
[2018-08-29] MEDS ORDERED: VANCOMYCIN HCL 0 MG in DEXTROSE 5%-WATER 250 ML IV NR (21:30)
[2018-08-29] MEDS: TEMAZEPAM 15 MG CAPSULE PO PRN (22:33)
[2018-08-29] MEDS ORDERED: VANCOMYCIN HCL 1,250 MG in DEXTROSE 5%-WATER 250 ML IV SCH (23:00)
[2018-08-30] MEDS: LEVALBUTEROL HCL NEB 1.25 MG/3 ML AMPUL NEB PRN (00:57)
[2018-08-30] MEDS: RINGERS SOLUTION,LACTATED 1,000 ML IV PRN ×2 (02:20→11:14)
[2018-08-30 04:43] LABS: ABSOLUTE LYMPHOCYTES (AUTO) 1.3 10^3/uL (0.5-4.7); ABSOLUTE NEUT (AUTO) 15.6 10^3/uL (1.7-8.2); HEMATOCRIT 26.2 % (36.0-47.0); LYMPHOCYTES % (AUTO) 7.3 % (13-45); MEAN CORPUSCULAR HEMOGLOBIN 27.5 pg (27.0-33.4); MEAN CORPUSCULAR HGB CONC 33.1 g/dL (32.0-36.0); MEAN CORPUSCULAR VOLUME 83 fl (80-97); MONOCYTES % (AUTO) 5.5 % (3-13); PLATELET COUNT 247 10^3/uL (150-450); RED BLOOD COUNT 3.16 10^6/uL (3.72-5.28); SEGMENTED NEUTROPHILS % (AUTO) 87.2 % (42-78); TOTAL CELLS COUNTED % (AUTO) 100 %; WHITE BLOOD COUNT 17.9 10^3/uL (4.0-10.5)
[2018-08-30 04:51] LABS: HEMOGLOBIN 8.7 g/dL (12.0-15.5)
[2018-08-30 05:12] LABS: ALANINE AMINOTRANSFERASE 20 U/L (9-52); ALBUMIN 3.1 g/dL (3.5-5.0); ALKALINE PHOSPHATASE 71 U/L (38-126); ANION GAP 11 (5-19); ASPARTATE AMINO TRANSFERASE 22 U/L (14-36); BILIRUBIN,DIRECT 0.4 mg/dL (0.0-0.4); BILIRUBIN,TOTAL 0.5 mg/dL (0.2-1.3); BLOOD UREA NITROGEN 32 mg/dL (7-20); CALCIUM 8.1 mg/dL (8.4-10.2); CARBON DIOXIDE 29 mmol/L (22-30); CHLORIDE 87 mmol/L (98-107); GLUCOSE 219 mg/dL (75-110); POTASSIUM 4.1 mmol/L (3.6-5.0); SODIUM 126.7 mmol/L (137-145); TOTAL PROTEIN 6.5 g/dL (6.3-8.2)
[2018-08-30] MEDS: PIPERACILLIN SODIUM/TAZOBACTAM 3.375 GM in NORMAL SALINE 100 ML IV SCH ×4 (06:11→23:04)
[2018-08-30] MEDS: HYDROCODONE/ACETAMINOPHEN 5-325 MG TABLET PO PRN ×2 (06:34→12:29)
[2018-08-30] MEDS: PANTOPRAZOLE SODIUM 40 MG TABLET.DR PO SCH ×2 (06:35→16:10)
[2018-08-30] MEDS: INSULIN LISPRO 100 UNIT/ML 3 ML VIAL SUBCUT SCH ×4 (08:15→23:04)
[2018-08-30] MEDS: ENOXAPARIN SODIUM INJ 40 MG/0.4 ML DISP.SYRIN SUBCUT SCH (09:07)
[2018-08-30] MEDS: FUROSEMIDE INJ/PF 40 MG/4 ML SDV IV SCH (09:07)
[2018-08-30] MEDS ORDERED: FUROSEMIDE INJ/PF 40 MG/4 ML SDV IV SCH (14:45)
[2018-08-30] MEDS: VANCOMYCIN HCL 750 MG in DEXTROSE 5%-WATER 250 ML IV SCH (17:39)
--- NOTE | 2018-08-30 21:02 | PDOC PROGRESS REPORT ---
Subjective Progress Note for:: 08/30/18 Subjective:: Patient seen by the bedside, she is still actively wheezing, She was somewhat confused today Reason For Visit: SEPSIS Physical Exam Vital Signs: Temp Pulse Resp BP Pulse Ox 97.5 F 81 20 121/62 100 08/30/18 16:00 08/30/18 16:00 08/30/18 16:00 08/30/18 16:00 08/30/18 16:00 Intake & Output 08/29/18 08/30/18 08/31/18 06:59 06:59 06:59 Intake Total 2671 3235 1950 Output Total 875 2310 3740 Balance 1796 925 -1790 Weight 108.3 kg 111.9 kg General appearance: PRESENT: no acute distress Eye exam: PRESENT: PERRLA Respiratory exam: PRESENT: wheezes Cardiovascular exam: PRESENT: +S1, +S2 GI/Abdominal exam: PRESENT: soft Neurological exam: PRESENT: alert, CN II-XII grossly intact Results Laboratory Results: 08/30/18 04:15 08/30/18 04:15 08/30/18 08/30/18 04:15 04:15 WBC 17.9 H RBC 3.16 L Hgb 8.7 L D Hct 26.2 L MCV 83 MCH 27.5 MCHC 33.1 RDW 16.0 H Plt Count 247 Seg Neutrophils % 87.2 H Lymphocytes % 7.3 L Monocytes % 5.5 Eosinophils % 0.0 Basophils % 0.0 Absolute Neutrophils 15.6 H Absolute Lymphocytes 1.3 Absolute Monocytes 1.0 Absolute Eosinophils 0.0 Absolute Basophils 0.0 Sodium 126.7 L Potassium 4.1 Chloride 87 L Carbon Dioxide 29 Anion Gap 11 BUN 32 H Creatinine 1.44 H Est GFR ( Amer) 43 L Est GFR (Non-Af Amer) 36 L Glucose 219 H Calcium 8.1 L Total Bilirubin 0.5 AST 22 ALT 20 Alkaline Phosphatase 71 Total Protein 6.5 Albumin 3.1 L 08/29/18 05:10 Nasophary (Mrsa Only) MRSA Culture - Final NO MRSA RECOVERED 08/28/18 08/28/18 08/28/18 23:40 23:40 23:40 Creatine Kinase 77 CK-MB (CK-2) 1.90 Troponin I < 0.012 NT-Pro-B Natriuret Pep 4780 H 08/29/18 05:10 Creatine Kinase CK-MB (CK-2) Troponin I < 0.012 NT-Pro-B Natriuret Pep Impressions: Chest CT 08/29/18 00:00 IMPRESSION: 1. There is ill-defined opacification bilaterally as described. Cannot exclude an atypical pneumonia. 2. The thyroid gland is heterogeneous. Chest X-Ray 08/29/18 00:00 IMPRESSION: Tip of the central line in the right atrium. Lungs are clear copyright 2011 [employer]- All Rights Reserved Assessment & Plan - Diagnosis (1) Acute hypercapnic respiratory failure Is this a current diagnosis for this admission?: Yes Plan: Patient required noninvasive positive pressure ventilation, BiPAP (2) Healthcare-associated pneumonia Is this a current diagnosis for this admission?: Yes Plan: She has healthcare associated pneumonia, she just got [facility] prolonged hospital admission, she will be treated with IV antibiotic to cover gram-negative organisms and also MRSA (3) Hypotension Qualifiers: Hypotension type: unspecified hypotension type Qualified Code(s): I95.9 - Hypotension, unspecified Is this a current diagnosis for this admission?: Yes (4) Sepsis Qualifiers: Sepsis type: sepsis due to unspecified organism Qualified Code(s): A41.9 - Sepsis, unspecified organism Is this a current diagnosis for this admission?: Yes (5) COPD with acute exacerbation Is this a current diagnosis for this admission?: Yes (6) Acute kidney injury Is this a current diagnosis for this admission?: Yes (7) Diabetes mellitus type 2 in obese Is this a current diagnosis for this admission?: Yes
[2018-08-30 21:52] LABS: OSMOLALITY,URINE 307 mOsm/kg (300-900)
[2018-08-30 22:08] LABS: URINE SODIUM 48 mmol/L (30-90)
[2018-08-30] MEDS: ACETAMINOPHEN 325 MG TABLET PO PRN (23:04)
[2018-08-31] MEDS: RINGERS SOLUTION,LACTATED 1,000 ML IV PRN ×2 (00:45→21:05)
[2018-08-31] MEDS: TEMAZEPAM 15 MG CAPSULE PO PRN ×2 (00:45→21:04)
[2018-08-31 03:38] LABS: ABSOLUTE EOSINOPHILS # (AUTO) 0.3 10^3/uL (0.0-0.6); ABSOLUTE LYMPHOCYTES (AUTO) 1.2 10^3/uL (0.5-4.7); ABSOLUTE MONOCYTES (AUTO) 0.7 10^3/uL (0.1-1.4); ABSOLUTE NEUT (AUTO) 7.3 10^3/uL (1.7-8.2); BASOPHILS % (AUTO) 0.2 % (0-2); EOSINOPHILS % (AUTO) 3.6 % (0-6); HEMATOCRIT 27.6 % (36.0-47.0); HEMOGLOBIN 9.2 g/dL (12.0-15.5); LYMPHOCYTES % (AUTO) 12.8 % (13-45); MEAN CORPUSCULAR HEMOGLOBIN 28.2 pg (27.0-33.4); MEAN CORPUSCULAR HGB CONC 33.5 g/dL (32.0-36.0); MEAN CORPUSCULAR VOLUME 84 fl (80-97); MONOCYTES % (AUTO) 7.5 % (3-13); PLATELET COUNT 224 10^3/uL (150-450); RED BLOOD COUNT 3.28 10^6/uL (3.72-5.28); RED CELL DISTRIBUTION WIDTH 16.5 % (11.5-14.0); SEGMENTED NEUTROPHILS % (AUTO) 75.9 % (42-78); TOTAL CELLS COUNTED % (AUTO) 100 %; WHITE BLOOD COUNT 9.6 10^3/uL (4.0-10.5)
[2018-08-31] MEDS: LEVALBUTEROL HCL NEB 1.25 MG/3 ML AMPUL NEB PRN ×4 (04:01→16:31)
[2018-08-31] MEDS: PANTOPRAZOLE SODIUM 40 MG TABLET.DR PO SCH ×2 (06:19→16:09)
[2018-08-31] MEDS: PIPERACILLIN SODIUM/TAZOBACTAM 3.375 GM in NORMAL SALINE 100 ML IV SCH ×4 (06:19→23:12)
[2018-08-31] MEDS: VANCOMYCIN HCL 750 MG in DEXTROSE 5%-WATER 250 ML IV SCH ×2 (06:20→18:10)
[2018-08-31 08:34] LABS: ARTERIAL BLOOD BASE EXCESS 9.6 mmol/L; ARTERIAL BLOOD FIO2 3L; ARTERIAL BLOOD HCO3 35.2 mmol/L (20-24); ARTERIAL BLOOD O2 SATURATION 96.8 % (94-98); ARTERIAL BLOOD PCO2 53.1 mmHg (35-45); ARTERIAL BLOOD PH 7.44 (7.35-7.45); ARTERIAL BLOOD PO2 88.3 mmHg (80-100); ARTERIAL BLOOD TOTAL CO2 36.8 mmol/L (21-25)
[2018-08-31] MEDS: INSULIN LISPRO 100 UNIT/ML 3 ML VIAL SUBCUT SCH ×4 (09:48→21:05)
[2018-08-31] MEDS: FUROSEMIDE INJ/PF 40 MG/4 ML SDV IV SCH (09:49)
[2018-08-31] MEDS: ENOXAPARIN SODIUM INJ 40 MG/0.4 ML DISP.SYRIN SUBCUT SCH (10:08)
--- NOTE | 2018-08-31 15:09 | PDOC PROGRESS REPORT ---
Subjective Progress Note for:: 08/31/18 Subjective:: She was seen by the bedside, she was confused, she is pulling on the monitor electrodes, she will be transferred to medical floor Reason For Visit: SEPSIS Physical Exam Vital Signs: Temp Pulse Resp BP Pulse Ox 99.3 F 110 H 22 H 167/78 H 99 08/31/18 12:00 08/31/18 12:22 08/31/18 12:22 08/31/18 12:00 08/31/18 12:22 Intake & Output 08/30/18 08/31/18 09/01/18 06:59 06:59 06:59 Intake Total 3235 3650 450 Output Total 2310 0905 925 Balance 314 -0227 -349 Weight 111.9 kg 110.4 kg General appearance: PRESENT: no acute distress Eye exam: PRESENT: PERRLA Respiratory exam: PRESENT: wheezes Cardiovascular exam: PRESENT: +S1, +S2 Neurological exam: PRESENT: alert, CN II-XII grossly intact Results Laboratory Results: 08/31/18 03:20 08/30/18 04:15 08/30/18 08/30/18 08/31/18 21:15 21:15 03:20 WBC 9.6 RBC 3.28 L Hgb 9.2 L Hct 27.6 L MCV 84 MCH 28.2 MCHC 33.5 RDW 16.5 H Plt Count 224 Seg Neutrophils % 75.9 Lymphocytes % 12.8 L Monocytes % 7.5 Eosinophils % 3.6 Basophils % 0.2 Absolute Neutrophils 7.3 Absolute Lymphocytes 1.2 Absolute Monocytes 0.7 Absolute Eosinophils 0.3 Absolute Basophils 0.0 Carbonic Acid HCO3/H2CO3 Ratio ABG pH ABG pCO2 ABG pO2 ABG HCO3 ABG O2 Saturation ABG Base Excess FiO2 Serum Osmolality 282 Urine Osmolality 307 08/31/18 08:30 WBC RBC Hgb Hct MCV MCH MCHC RDW Plt Count Seg Neutrophils % Lymphocytes % Monocytes % Eosinophils % Basophils % Absolute Neutrophils Absolute Lymphocytes Absolute Monocytes Absolute Eosinophils Absolute Basophils Carbonic Acid 1.60 H HCO3/H2CO3 Ratio 22:1 ABG pH 7.44 ABG pCO2 53.1 H ABG pO2 88.3 ABG HCO3 35.2 H ABG O2 Saturation 96.8 ABG Base Excess 9.6 FiO2 3L Serum Osmolality Urine Osmolality 08/29/18 04:11 Gaines Catheter Urine Culture - Final Lactobacillus (Vaginal Lillie) 08/29/18 05:10 Nasophary (Mrs[facility] Only) MRSA Culture - Final NO MRSA RECOVERED 08/28/18 08/28/18 08/28/18 23:40 23:40 23:40 Creatine Kinase 77 CK-MB (CK-2) 1.90 Troponin I < 0.012 NT-Pro-B Natriuret Pep 4780 H 08/29/18 05:10 Creatine Kinase CK-MB (CK-2) Troponin I < 0.012 NT-Pro-B Natriuret Pep Impressions: Chest CT 08/29/18 00:00 IMPRESSION: 1. There is ill-defined opacification bilaterally as described. Cannot exclude an atypical pneumonia. 2. The thyroid gland is heterogeneous. Chest X-Ray 08/29/18 00:00 IMPRESSION: Tip of the central line in the right atrium. Lungs are clear copyright 2011 [email or web address]- All Rights Reserved Assessment & Plan - Diagnosis (1) Acute hypercapnic respiratory failure Is this a current diagnosis for this admission?: Yes (2) Healthcare-associated pneumonia Is this a current diagnosis for this admission?: Yes Plan: She has healthcare associated pneumonia, she just got [facility] from the [facility] after prolonged hospital admission, she will be treated with IV antibiotic to cover gram-negative organisms and also MRSA (3) Hypotension Qualifiers: Hypotension type: unspecified hypotension type Qualified Code(s): I95.9 - Hypotension, unspecified Is this a current diagnosis for this admission?: Yes (4) Sepsis Qualifiers: Sepsis type: sepsis due to unspecified organism Qualified Code(s): A41.9 - Sepsis, unspecified organism Is this a current diagnosis for this admission?: Yes (5) COPD with acute exacerbation Is this a current diagnosis for this admission?: Yes (6) Acute kidney injury Is this a current diagnosis for this admission?: Yes (7) Diabetes mellitus type 2 in obese Is this a current diagnosis for this admission?: Yes
[2018-08-31] MEDS: ACETAMINOPHEN 325 MG TABLET PO PRN (21:04)
[2018-09-01] MEDS: PIPERACILLIN SODIUM/TAZOBACTAM 3.375 GM in NORMAL SALINE 100 ML IV SCH ×4 (05:12→23:19)
[2018-09-01] MEDS: PANTOPRAZOLE SODIUM 40 MG TABLET.DR PO SCH ×2 (05:12→14:03)
[2018-09-01 05:57] LABS: ABSOLUTE EOSINOPHILS # (AUTO) 0.2 10^3/uL (0.0-0.6); ABSOLUTE MONOCYTES (AUTO) 0.7 10^3/uL (0.1-1.4); ABSOLUTE NEUT (AUTO) 4.6 10^3/uL (1.7-8.2); BASOPHILS % (AUTO) 0.2 % (0-2); EOSINOPHILS % (AUTO) 2.7 % (0-6); HEMATOCRIT 27.8 % (36.0-47.0); HEMOGLOBIN 9.2 g/dL (12.0-15.5); LYMPHOCYTES % (AUTO) 15.5 % (13-45); MEAN CORPUSCULAR HEMOGLOBIN 27.6 pg (27.0-33.4); MEAN CORPUSCULAR HGB CONC 32.9 g/dL (32.0-36.0); MEAN CORPUSCULAR VOLUME 84 fl (80-97); MONOCYTES % (AUTO) 10.6 % (3-13); PLATELET COUNT 226 10^3/uL (150-450); RED BLOOD COUNT 3.32 10^6/uL (3.72-5.28); RED CELL DISTRIBUTION WIDTH 16.2 % (11.5-14.0); TOTAL CELLS COUNTED % (AUTO) 100 %; WHITE BLOOD COUNT 6.5 10^3/uL (4.0-10.5)
[2018-09-01 06:32] LABS: VANCOMYCIN,TROUGH 19.6 ug/mL (5.0-20.0)
[2018-09-01] MEDS: VANCOMYCIN HCL 750 MG in DEXTROSE 5%-WATER 250 ML IV SCH ×2 (06:32→18:02)
[2018-09-01] MEDS: FUROSEMIDE INJ/PF 40 MG/4 ML SDV IV SCH (09:41)
[2018-09-01] MEDS: INSULIN LISPRO 100 UNIT/ML 3 ML VIAL SUBCUT SCH ×4 (09:41→22:23)
[2018-09-01] MEDS: ENOXAPARIN SODIUM INJ 40 MG/0.4 ML DISP.SYRIN SUBCUT SCH (09:42)
[2018-09-01] MEDS: RINGERS SOLUTION,LACTATED 1,000 ML IV PRN ×2 (09:46→22:14)
[2018-09-01] MEDS ORDERED: MELATONIN 5 MG TABLET PO PRN (12:48)
[2018-09-01] MEDS ORDERED: ACETAMINOPHEN WITH CODEINE PO PRN (12:48)
[2018-09-01] MEDS ORDERED: ACETAMINOPHEN 325 MG TABLET PO PRN (12:48)
[2018-09-01] MEDS ORDERED: ALBUTEROL SULFATE HFA (90 MCG/PUFF) 200 PUFF/8.5 GM MDI IH PRN (12:48)
[2018-09-01] MEDS ORDERED: (PENDING PHARMACY ID) (Linagliptin [Tradjenta] 5 MG) PO SCH (13:00)
[2018-09-01] MEDS ORDERED: (PENDING PHARMACY ID) (Empagliflozin [Jardiance] 25 MG) PO SCH (13:00)
[2018-09-01] MEDS ORDERED: SEMAGLUTIDE 0.5 MG SQ SCH (13:00)
[2018-09-01] MEDS ORDERED: BETHANECHOL CHLORIDE 10 MG PO SCH (13:00)
[2018-09-01] MEDS: ARIPIPRAZOLE 2 MG TABLET PO SCH (14:01)
[2018-09-01] MEDS: METOPROLOL SUCCINATE 50 MG TAB.SR.24H PO SCH (14:01)
[2018-09-01] MEDS: GABAPENTIN 300 MG CAPSULE PO SCH ×2 (14:02→22:15)
[2018-09-01] MEDS: LOSARTAN POTASSIUM 50 MG TABLET PO SCH (14:03)
[2018-09-01] MEDS: FLUTICASONE/UMECLIDIN/VILANTER 100-62.5-25 MCG/DOSE IH SCH (14:04)
--- NOTE | 2018-09-01 19:02 | PDOC PROGRESS REPORT ---
Subjective Progress Note for:: 09/01/18 Subjective:: Patient is confused, she required restraint Reason For Visit: SEPSIS Physical Exam Vital Signs: Temp Pulse Resp BP Pulse Ox 97.7 F 101 H 24 H 165/98 H 98 09/01/18 12:07 09/01/18 12:07 09/01/18 12:07 09/01/18 12:07 09/01/18 12:07 Intake & Output 08/31/18 09/01/18 09/02/18 06:59 06:59 06:59 Intake Total 3650 3240 600 Output Total 4945 4895 Balance -1295 -1655 600 Weight 110.4 kg 105.2 kg General appearance: PRESENT: no acute distress Eye exam: PRESENT: PERRLA Respiratory exam: PRESENT: clear to auscultation [place] Cardiovascular exam: PRESENT: +S1, +S2 GI/Abdominal exam: PRESENT: soft Neurological exam: PRESENT: alert Results Laboratory Results: 09/01/18 05:17 09/01/18 05:17 09/01/18 09/01/18 05:17 05:17 WBC 6.5 RBC 3.32 L Hgb 9.2 L Hct 27.8 L MCV 84 MCH 27.6 MCHC 32.9 RDW 16.2 H Plt Count 226 Seg Neutrophils % 71.0 Lymphocytes % 15.5 Monocytes % 10.6 Eosinophils % 2.7 Basophils % 0.2 Absolute Neutrophils 4.6 Absolute Lymphocytes 1.0 Absolute Monocytes 0.7 Absolute Eosinophils 0.2 Absolute Basophils 0.0 Creatinine 0.79 Est GFR ( Amer) > 60 Est GFR (Non-Af Amer) > 60 08/28/18 08/28/18 08/28/18 23:40 23:40 23:40 Creatine Kinase 77 CK-MB (CK-2) 1.90 Troponin I < 0.012 NT-Pro-B Natriuret Pep 4780 H 08/29/18 05:10 Creatine Kinase CK-MB (CK-2) Troponin I < 0.012 NT-Pro-B Natriuret Pep Impressions: Chest CT 08/29/18 00:00 IMPRESSION: 1. There is ill-defined opacification bilaterally as described. Cannot exclude an atypical pneumonia. 2. The thyroid gland is heterogeneous. Chest X-Ray 08/29/18 00:00 IMPRESSION: Tip of the central line in the right atrium. Lungs are clear copyright 2010 [employer]- All Rights Reserved Assessment & Plan - Diagnosis (1) Acute hypercapnic respiratory failure Is this a current diagnosis for this admission?: Yes Plan: Patient required noninvasive positive pressure ventilation, BiPAP (2) Healthcare-associated pneumonia Is this a current diagnosis for this admission?: Yes Plan: She has healthcare associated pneumonia, she just got discharged from the nursing home home after prolonged hospital admission, she will be treated with IV antibiotic to cover gram-negative organisms and also MRSA (3) Hypotension Qualifiers: Hypotension type: unspecified hypotension type Qualified Code(s): I95.9 - Hypotension, unspecified Is this a current diagnosis for this admission?: Yes (4) Sepsis Qualifiers: Sepsis type: sepsis due to unspecified organism Qualified Code(s): A41.9 - Sepsis, unspecified organism Is this a current diagnosis for this admission?: Yes (5) COPD with acute exacerbation Is this a current diagnosis for this admission?: Yes (6) Acute kidney injury Is this a current diagnosis for this admission?: Yes (7) Diabetes mellitus type 2 in obese Is this a current diagnosis for this admission?: Yes
[2018-09-01] MEDS ORDERED: (PENDING PHARMACY ID) (Pitavastatin Calcium [Livalo] 4 MG) PO SCH (22:00)
[2018-09-01] MEDS: ATORVASTATIN CALCIUM 20 MG TABLET PO SCH (22:14)
[2018-09-01] MEDS: DULOXETINE HCL 30 MG CAPSULE.DR PO SCH (22:15)
[2018-09-02] MEDS: GABAPENTIN 300 MG CAPSULE PO SCH ×3 (05:23→21:27)
[2018-09-02] MEDS: PIPERACILLIN SODIUM/TAZOBACTAM 3.375 GM in NORMAL SALINE 100 ML IV SCH ×4 (05:24→23:11)
[2018-09-02] MEDS: VANCOMYCIN HCL 750 MG in DEXTROSE 5%-WATER 250 ML IV SCH ×2 (06:10→17:47)
[2018-09-02] MEDS: INSULIN LISPRO 100 UNIT/ML 3 ML VIAL SUBCUT SCH ×4 (09:04→21:34)
[2018-09-02] MEDS: PANTOPRAZOLE SODIUM 40 MG TABLET.DR PO SCH (09:05)
[2018-09-02] MEDS: FUROSEMIDE INJ/PF 40 MG/4 ML SDV IV SCH (09:05)
[2018-09-02] MEDS: LOSARTAN POTASSIUM 50 MG TABLET PO SCH (09:05)
[2018-09-02] MEDS: ENOXAPARIN SODIUM INJ 40 MG/0.4 ML DISP.SYRIN SUBCUT SCH (09:06)
[2018-09-02] MEDS: METOPROLOL SUCCINATE 50 MG TAB.SR.24H PO SCH (09:06)
[2018-09-02] MEDS: DULOXETINE HCL 30 MG CAPSULE.DR PO SCH ×2 (09:06→21:27)
[2018-09-02] MEDS: SITAGLIPTIN PHOSPHATE 50 MG TABLET PO SCH (09:06)
[2018-09-02] MEDS: FLUTICASONE/UMECLIDIN/VILANTER 100-62.5-25 MCG/DOSE IH SCH ×2 (09:07→09:15)
[2018-09-02] MEDS: ARIPIPRAZOLE 2 MG TABLET PO SCH (09:07)
[2018-09-02] MEDS: RINGERS SOLUTION,LACTATED 1,000 ML IV PRN ×2 (09:55→21:27)
[2018-09-02] MEDS: CODEINE SULF 30 MG TABLET PO PRN (18:02)
[2018-09-02] MEDS: ACETAMINOPHEN WITH CODEINE #3 TABLET PO PRN (18:02)
--- NOTE | 2018-09-02 20:50 | PDOC PROGRESS REPORT ---
Subjective Progress Note for:: 09/02/18 Subjective:: Patient is more alert and oriented today since started on her regular medication including Abilify and duloxetine Reason For Visit: SEPSIS Physical Exam Vital Signs: Temp Pulse Resp BP Pulse Ox 98.6 F 74 17 161/73 H 100 09/02/18 14:00 09/02/18 18:00 09/02/18 18:00 09/02/18 18:00 09/02/18 18:00 Intake & Output 09/01/18 09/02/18 09/03/18 06:59 06:59 06:59 Intake Total 3240 3050 700 Output Total 4895 450 100 Balance -1655 2600 600 Weight 105.2 kg 105.6 kg Eye exam: PRESENT: PERRLA Respiratory exam: PRESENT: wheezes Cardiovascular exam: PRESENT: +S1, +S2 GI/Abdominal exam: PRESENT: soft Neurological exam: PRESENT: alert Results Laboratory Results: 09/01/18 05:17 09/01/18 05:17 08/28/18 08/28/18 08/28/18 23:40 23:40 23:40 Creatine Kinase 77 CK-MB (CK-2) 1.90 Troponin I < 0.012 NT-Pro-B Natriuret Pep 4780 H 08/29/18 05:10 Creatine Kinase CK-MB (CK-2) Troponin I < 0.012 NT-Pro-B Natriuret Pep Impressions: Chest CT 08/29/18 00:00 IMPRESSION: 1. There is ill-defined opacification bilaterally as described. Cannot exclude an atypical pneumonia. 2. The thyroid gland is heterogeneous. Chest X-Ray 08/29/18 00:00 IMPRESSION: Tip of the central line in the right atrium. Lungs are clear copyright 2010 [employer]- All Rights Reserved Assessment & Plan - Diagnosis (1) Acute hypercapnic respiratory failure Is this a current diagnosis for this admission?: Yes Plan: Patient required noninvasive positive pressure ventilation, BiPAP (2) Healthcare-associated pneumonia Is this a current diagnosis for this admission?: Yes Plan: Continue treatment (3) Hypotension Qualifiers: Hypotension type: unspecified hypotension type Qualified Code(s): I95.9 - Hypotension, unspecified Is this a current diagnosis for this admission?: Yes (4) Sepsis Qualifiers: Sepsis type: sepsis due to unspecified organism Qualified Code(s): A41.9 - Sepsis, unspecified organism Is this a current diagnosis for this admission?: Yes (5) COPD with acute exacerbation Is this a current diagnosis for this admission?: Yes (6) Acute kidney injury Is this a current diagnosis for this admission?: Yes (7) Diabetes mellitus type 2 in obese Is this a current diagnosis for this admission?: Yes
[2018-09-02] MEDS: ATORVASTATIN CALCIUM 20 MG TABLET PO SCH (21:27)
[2018-09-02] MEDS: TEMAZEPAM 15 MG CAPSULE PO PRN (23:11)
[2018-09-03] MEDS: ACETAMINOPHEN WITH CODEINE #3 TABLET PO PRN ×2 (00:55→21:22)
[2018-09-03] MEDS: CODEINE SULF 30 MG TABLET PO PRN ×3 (00:55→15:46)
[2018-09-03] MEDS: PIPERACILLIN SODIUM/TAZOBACTAM 3.375 GM in NORMAL SALINE 100 ML IV SCH ×3 (05:02→17:02)
[2018-09-03] MEDS: GABAPENTIN 300 MG CAPSULE PO SCH ×3 (05:02→21:21)
[2018-09-03] MEDS: VANCOMYCIN HCL 750 MG in DEXTROSE 5%-WATER 250 ML IV SCH ×2 (05:52→17:02)
[2018-09-03] MEDS: RINGERS SOLUTION,LACTATED 1,000 ML IV PRN (05:53)
[2018-09-03] MEDS: INSULIN LISPRO 100 UNIT/ML 3 ML VIAL SUBCUT SCH ×4 (10:26→21:22)
[2018-09-03] MEDS: ENOXAPARIN SODIUM INJ 40 MG/0.4 ML DISP.SYRIN SUBCUT SCH (11:20)
[2018-09-03] MEDS: FUROSEMIDE INJ/PF 40 MG/4 ML SDV IV SCH (11:20)
[2018-09-03] MEDS: LOSARTAN POTASSIUM 50 MG TABLET PO SCH (11:21)
[2018-09-03] MEDS: PANTOPRAZOLE SODIUM 40 MG TABLET.DR PO SCH (11:21)
[2018-09-03] MEDS: METOPROLOL SUCCINATE 50 MG TAB.SR.24H PO SCH (11:21)
[2018-09-03] MEDS: DULOXETINE HCL 30 MG CAPSULE.DR PO SCH ×2 (11:21→21:22)
[2018-09-03] MEDS: SITAGLIPTIN PHOSPHATE 50 MG TABLET PO SCH (11:21)
[2018-09-03] MEDS: ARIPIPRAZOLE 2 MG TABLET PO SCH (11:22)
[2018-09-03] MEDS: FLUTICASONE/UMECLIDIN/VILANTER 100-62.5-25 MCG/DOSE IH SCH (11:23)
--- NOTE | 2018-09-03 11:59 | PDOC PROGRESS REPORT ---
Subjective Progress Note for:: 09/03/18 Subjective:: Patient is currently doing well Patient is alert awake oriented Patient is currently in the floor status in ICU Denied any chest pain to than any shortness of the breath Reason For Visit: SEPSIS Physical Exam Vital Signs: Temp Pulse Resp BP Pulse Ox 98.9 F 74 20 161/73 H 99 09/03/18 04:09 09/02/18 18:00 09/03/18 08:00 09/02/18 18:00 09/03/18 08:38 Intake & Output 09/02/18 09/03/18 09/04/18 06:59 06:59 06:59 Intake Total 3050 2800 550 Output Total 450 100 Balance 2600 2700 550 Weight 105.6 kg 105.9 kg General appearance: PRESENT: no acute distress, well-developed, well-nourished Head exam: PRESENT: atraumatic, normocephalic Eye exam: PRESENT: conjunctiva pink, EOMI, PERRLA. ABSENT: scleral icterus Ear exam: PRESENT: normal external ear exam Mouth exam: PRESENT: moist, tongue midline Neck exam: PRESENT: full ROM. ABSENT: carotid bruit, JVD, lymphadenopathy, thyromegaly Respiratory exam: PRESENT: clear to auscultation [place] Cardiovascular exam: PRESENT: RRR. ABSENT: diastolic murmur, rubs, systolic murmur Pulses: PRESENT: normal dorsalis pedis pul, +2 pedal pulses bilateral Vascular exam: PRESENT: normal capillary refill GI/Abdominal exam: PRESENT: normal bowel sounds, soft. ABSENT: distended, guarding, mass, organolmegaly, rebound, tenderness Rectal exam: PRESENT: deferred Neurological exam: PRESENT: alert, awake, oriented to person, oriented to place, oriented to time, oriented to situation. ABSENT: motor sensory deficit Psychiatric exam: PRESENT: appropriate affect, normal mood. ABSENT: homicidal ideation, suicidal ideation Skin exam: PRESENT: dry, intact, warm. ABSENT: cyanosis, rash Results Laboratory Results: 09/01/18 05:17 09/01/18 05:17 08/29/18 01:09 Blood Blood Culture - Final NO GROWTH IN 5 DAYS 08/29/18 00:33 Blood Blood Culture - Final NO GROWTH IN 5 DAYS 08/28/18 08/28/18 08/28/18 23:40 23:40 23:40 Creatine Kinase 77 CK-MB (CK-2) 1.90 Troponin I < 0.012 NT-Pro-B Natriuret Pep 4780 H 08/29/18 05:10 Creatine Kinase CK-MB (CK-2) Troponin I < 0.012 NT-Pro-B Natriuret Pep Impressions: Chest CT 08/29/18 00:00 IMPRESSION: 1. There is ill-defined opacification bilaterally as described. Cannot exclude an atypical pneumonia. 2. The thyroid gland is heterogeneous. Chest X-Ray 08/29/18 00:00 IMPRESSION: Tip of the central line in the right atrium. Lungs are clear copyright 2011 [employer]- All Rights Reserved Assessment & Plan - Diagnosis (1) Acute and chronic respiratory failure with hypoxia Is this a current diagnosis for this admission?: Yes Plan: Currently doing much better (2) Healthcare-associated pneumonia Is this a current diagnosis for this admission?: Yes Plan: Continues to IV antibiotic (3) Sepsis Qualifiers: Sepsis type: sepsis due to unspecified organism Qualified Code(s): A41.9 - Sepsis, unspecified organism Is this a current diagnosis for this admission?: Yes Plan: Currently all improving (4) Acute kidney injury Is this a current diagnosis for this admission?: Yes (5) COPD with acute exacerbation Is this a current diagnosis for this admission?: Yes (6) Diabetes mellitus type 2 in obese Is this a current diagnosis for this admission?: Yes - Time Time Spent with patient: 15-24 minutes Medications reviewed and adjusted accordingly: Yes Anticipated discharge: Other Within: Other - Plan Summary Plan Summary: Continues to current medications
[2018-09-03] MEDS: LEVALBUTEROL HCL NEB 1.25 MG/3 ML AMPUL NEB PRN (13:28)
[2018-09-03] MEDS: NORMAL SALINE 1000 ML 1,000 ML IV PRN (15:48)
[2018-09-03] MEDS: ATORVASTATIN CALCIUM 20 MG TABLET PO SCH (21:21)
[2018-09-04] MEDS: PIPERACILLIN SODIUM/TAZOBACTAM 3.375 GM in NORMAL SALINE 100 ML IV SCH ×5 (01:09→23:55)
[2018-09-04] MEDS: ACETAMINOPHEN WITH CODEINE #3 TABLET PO PRN ×4 (03:18→21:33)
[2018-09-04] MEDS: CODEINE SULF 30 MG TABLET PO PRN ×3 (03:18→15:18)
[2018-09-04] MEDS: GABAPENTIN 300 MG CAPSULE PO SCH ×3 (06:09→21:30)
[2018-09-04] MEDS: VANCOMYCIN HCL 750 MG in DEXTROSE 5%-WATER 250 ML IV SCH ×2 (06:09→17:06)
[2018-09-04 06:50] LABS: ABSOLUTE EOSINOPHILS # (AUTO) 0.6 10^3/uL (0.0-0.6); ABSOLUTE LYMPHOCYTES (AUTO) 1.6 10^3/uL (0.5-4.7); ABSOLUTE MONOCYTES (AUTO) 0.6 10^3/uL (0.1-1.4); ABSOLUTE NEUT (AUTO) 5.7 10^3/uL (1.7-8.2); BASOPHILS % (AUTO) 0.4 % (0-2); EOSINOPHILS % (AUTO) 6.5 % (0-6); LYMPHOCYTES % (AUTO) 19.1 % (13-45); MEAN CORPUSCULAR HEMOGLOBIN 27.3 pg (27.0-33.4); MEAN CORPUSCULAR HGB CONC 33.2 g/dL (32.0-36.0); MEAN CORPUSCULAR VOLUME 82 fl (80-97); MONOCYTES % (AUTO) 7.1 % (3-13); PLATELET COUNT 255 10^3/uL (150-450); RED BLOOD COUNT 3.65 10^6/uL (3.72-5.28); RED CELL DISTRIBUTION WIDTH 15.8 % (11.5-14.0); SEGMENTED NEUTROPHILS % (AUTO) 66.9 % (42-78); TOTAL CELLS COUNTED % (AUTO) 100 %; WHITE BLOOD COUNT 8.5 10^3/uL (4.0-10.5)
[2018-09-04 07:09] LABS: ANION GAP 6 (5-19); BLOOD UREA NITROGEN 8 mg/dL (7-20); CALCIUM 7.9 mg/dL (8.4-10.2); CARBON DIOXIDE 37 mmol/L (22-30); CHLORIDE 92 mmol/L (98-107); GLUCOSE 194 mg/dL (75-110); SODIUM 134.6 mmol/L (137-145)
[2018-09-04] MEDS: INSULIN LISPRO 100 UNIT/ML 3 ML VIAL SUBCUT SCH ×4 (07:35→21:40)
[2018-09-04] MEDS: MAGNESIUM SULFATE 1 GM/D5W 100 ML IV SCH ×2 (08:00→09:12)
[2018-09-04] MEDS: LEVALBUTEROL HCL NEB 1.25 MG/3 ML AMPUL NEB PRN (08:36)
[2018-09-04] MEDS: FLUTICASONE/UMECLIDIN/VILANTER 100-62.5-25 MCG/DOSE IH SCH (09:05)
[2018-09-04] MEDS: ARIPIPRAZOLE 2 MG TABLET PO SCH (09:06)
[2018-09-04] MEDS: DULOXETINE HCL 30 MG CAPSULE.DR PO SCH ×2 (09:06→21:30)
[2018-09-04] MEDS: ENOXAPARIN SODIUM INJ 40 MG/0.4 ML DISP.SYRIN SUBCUT SCH (09:06)
[2018-09-04] MEDS: METOPROLOL SUCCINATE 50 MG TAB.SR.24H PO SCH (09:06)
[2018-09-04] MEDS: LOSARTAN POTASSIUM 50 MG TABLET PO SCH (09:06)
[2018-09-04] MEDS: FUROSEMIDE INJ/PF 40 MG/4 ML SDV IV SCH (09:06)
[2018-09-04] MEDS: PANTOPRAZOLE SODIUM 40 MG TABLET.DR PO SCH (09:06)
[2018-09-04] MEDS: SITAGLIPTIN PHOSPHATE 50 MG TABLET PO SCH (09:07)
[2018-09-04] MEDS: NORMAL SALINE 1000 ML 1,000 ML IV PRN (10:07)
[2018-09-04] MEDS: POTASSIUM CHLORIDE 20 MEQ/50 ML RTU IV SCH ×3 (10:09→11:59)
--- NOTE | 2018-09-04 11:05 | PDOC PROGRESS REPORT ---
Subjective Progress Note for:: 09/04/18 Subjective:: Patient is currently doing well Patient's potassium and magnesium was low currently replaced per the ICU protocol Patient is denied any chest pain to than any shortness of the breath Reason For Visit: SEPSIS Physical Exam Vital Signs: Temp Pulse Resp BP Pulse Ox 97.6 F 77 18 130/64 H 100 09/04/18 08:00 09/04/18 10:59 09/04/18 10:59 09/04/18 10:59 09/04/18 10:59 Intake & Output 09/03/18 09/04/18 09/05/18 06:59 06:59 06:59 Intake Total 2800 1100 1466 Output Total 100 500 Balance 2700 600 1466 Weight 105.9 kg 104.8 kg General appearance: PRESENT: no acute distress, well-developed, well-nourished Head exam: PRESENT: atraumatic, normocephalic Eye exam: PRESENT: conjunctiva pink, EOMI, PERRLA. ABSENT: scleral icterus Ear exam: PRESENT: normal external ear exam Mouth exam: PRESENT: moist, tongue midline Neck exam: PRESENT: full ROM. ABSENT: carotid bruit, JVD, lymphadenopathy, thyromegaly Respiratory exam: PRESENT: clear to auscultation [place] Cardiovascular exam: PRESENT: RRR. ABSENT: diastolic murmur, rubs, systolic mu rmur Pulses: PRESENT: normal dorsalis pedis pul, +2 pedal pulses bilateral Vascular exam: PRESENT: normal capillary refill GI/Abdominal exam: PRESENT: normal bowel sounds, soft. ABSENT: distended, guarding, mass, organolmegaly, rebound, tenderness Rectal exam: PRESENT: deferred Extremities exam: ABSENT: pedal edema Neurological exam: PRESENT: alert, awake, oriented to person, oriented to place, oriented to time, oriented to situation, CN II-XII grossly intact. ABSENT: motor sensory deficit Psychiatric exam: PRESENT: appropriate affect, normal mood. ABSENT: homicidal ideation, suicidal ideation Skin exam: PRESENT: dry, intact, warm. ABSENT: cyanosis, rash Results Laboratory Results: 09/04/18 06:33 09/04/18 06:33 09/04/18 09/04/18 09/04/18 06:33 06:33 06:33 WBC 8.5 RBC 3.65 L Hgb 10.0 L Hct 30.0 L MCV 82 MCH 27.3 MCHC 33.2 RDW 15.8 H Plt Count 255 Seg Neutrophils % 66.9 Lymphocytes % 19.1 Monocytes % 7.1 Eosinophils % 6.5 H Basophils % 0.4 Absolute Neutrophils 5.7 Absolute Lymphocytes 1.6 Absolute Monocytes 0.6 Absolute Eosinophils 0.6 Absolute Basophils 0.0 Sodium 134.6 L Potassium 3.0 L* Chloride 92 L Carbon Dioxide 37 H Anion Gap 6 BUN 8 Creatinine 0.60 Est GFR ( Amer) > 60 Est GFR (Non-Af Amer) > 60 Glucose 194 H Calcium 7.9 L Magnesium 1.2 L* 08/28/18 08/28/18 08/28/18 23:40 23:40 23:40 Creatine Kinase 77 CK-MB (CK-2) 1.90 Troponin I < 0.012 NT-Pro-B Natriuret Pep 4780 H 08/29/18 05:10 Creatine Kinase CK-MB (CK-2) Troponin I < 0.012 NT-Pro-B Natriuret Pep Impressions: Chest CT 08/29/18 00:00 IMPRESSION: 1. There is ill-defined opacification bilaterally as described. Cannot exclude an atypical pneumonia. 2. The thyroid gland is heterogeneous. Chest X-Ray 08/29/18 00:00 IMPRESSION: Tip of the central line in the right atrium. Lungs are clear copyright 2011 [employer]- All Rights Reserved Assessment & Plan - Diagnosis (1) Acute and chronic respiratory failure with hypoxia Is this a current diagnosis for this admission?: Yes Plan: Currently doing much better (2) Healthcare-associated pneumonia Is this a current diagnosis for this admission?: Yes Plan: Continues to IV antibiotic (3) Sepsis Qualifiers: Sepsis type: sepsis due to unspecified organism Qualified Code(s): A41.9 - Sepsis, unspecified organism Is this a current diagnosis for this admission?: Yes Plan: Currently all improving (4) Acute kidney injury Is this a current diagnosis for this admission?: Yes (5) COPD with acute exacerbation Is this a current diagnosis for this admission?: Yes (6) Diabetes mellitus type 2 in obese Is this a current diagnosis for this admission?: Yes (7) Hypokalemia Is this a current diagnosis for this admission?: Yes Plan: List the potassium and replace the magnesium - Time Time Spent with patient: 15-24 minutes Medications reviewed and adjusted accordingly: Yes Anticipated discharge: Home Within: Other - Plan Summary Plan Summary: IV Lasix with the p.o. Lasix Continues to current medications Replace the electrolytes
[2018-09-04 15:34] LABS: ANION GAP 5 (5-19); BLOOD UREA NITROGEN 8 mg/dL (7-20); CALCIUM 7.9 mg/dL (8.4-10.2); CARBON DIOXIDE 37 mmol/L (22-30); CHLORIDE 94 mmol/L (98-107); GLUCOSE 194 mg/dL (75-110); POTASSIUM 3.2 mmol/L (3.6-5.0); SODIUM 135.7 mmol/L (137-145)
[2018-09-04] MEDS ORDERED: POTASSIUM CHLORIDE 10 MEQ CAPSULE.ER PO SCH (16:00)
[2018-09-04] MEDS: POTASSIUM CHLORIDE 10 MEQ CAPSULE.ER PO SCH (16:02)
[2018-09-04] MEDS: ATORVASTATIN CALCIUM 20 MG TABLET PO SCH (21:31)
[2018-09-05] MEDS: ACETAMINOPHEN WITH CODEINE #3 TABLET PO PRN ×3 (03:33→16:23)
[2018-09-05] MEDS: CODEINE SULF 30 MG TABLET PO PRN ×3 (03:33→16:23)
[2018-09-05] MEDS: PIPERACILLIN SODIUM/TAZOBACTAM 3.375 GM in NORMAL SALINE 100 ML IV SCH (05:02)
[2018-09-05] MEDS: GABAPENTIN 300 MG CAPSULE PO SCH ×2 (05:06→16:04)
[2018-09-05] MEDS: VANCOMYCIN HCL 750 MG in DEXTROSE 5%-WATER 250 ML IV SCH ×2 (05:35→17:20)
[2018-09-05 05:37] LABS: BLOOD UREA NITROGEN 7 mg/dL (7-20); GLUCOSE 165 mg/dL (75-110); POTASSIUM 3.8 mmol/L (3.6-5.0)
[2018-09-05 05:42] LABS: CARBON DIOXIDE 34 mmol/L (22-30); CHLORIDE 98 mmol/L (98-107); SODIUM 135.9 mmol/L (137-145)
[2018-09-05 05:51] LABS: ANION GAP 4 (5-19)
[2018-09-05] MEDS: INSULIN LISPRO 100 UNIT/ML 3 ML VIAL SUBCUT SCH ×3 (08:30→21:23)
[2018-09-05] MEDS: FLUTICASONE/UMECLIDIN/VILANTER 100-62.5-25 MCG/DOSE IH SCH (09:36)
[2018-09-05] MEDS: METOPROLOL SUCCINATE 50 MG TAB.SR.24H PO SCH (09:38)
[2018-09-05] MEDS: ENOXAPARIN SODIUM INJ 40 MG/0.4 ML DISP.SYRIN SUBCUT SCH (09:38)
[2018-09-05] MEDS: ARIPIPRAZOLE 2 MG TABLET PO SCH (09:39)
[2018-09-05] MEDS: DULOXETINE HCL 30 MG CAPSULE.DR PO SCH ×2 (09:39→21:09)
[2018-09-05] MEDS: PANTOPRAZOLE SODIUM 40 MG TABLET.DR PO SCH (09:40)
[2018-09-05] MEDS: FUROSEMIDE 40 MG TABLET PO SCH (09:40)
[2018-09-05] MEDS: LOSARTAN POTASSIUM 50 MG TABLET PO SCH (09:41)
[2018-09-05] MEDS: POTASSIUM CHLORIDE 10 MEQ CAPSULE.ER PO SCH (09:42)
[2018-09-05] MEDS: SITAGLIPTIN PHOSPHATE 50 MG TABLET PO SCH (09:42)
[2018-09-05] MEDS: NORMAL SALINE 1000 ML 1,000 ML IV PRN (10:15)
[2018-09-05] MEDS: LEVALBUTEROL HCL NEB 1.25 MG/3 ML AMPUL NEB PRN (11:42)
[2018-09-05] MEDS ORDERED: DEXTROSE 40% GEL 15 GM TUBE X 2 PO PRN (12:30)
[2018-09-05] MEDS ORDERED: DEXTROSE 50%-WATER SYRINGE 25 GM/50 ML DOSE IV PRN (12:30)
[2018-09-05] MEDS ORDERED: DEXTROSE 50%-WATER SYRINGE 12.5 GM/25 ML DOSE IV PRN (12:30)
[2018-09-05] MEDS ORDERED: GLUCAGON,HUMAN RECOMB 1 MG INJ IM PRN (12:30)
[2018-09-05] MEDS ORDERED: DEXTROSE 40% GEL 15 GM TUBE PO PRN (12:30)
[2018-09-05] MEDS: GABAPENTIN 400 MG CAPSULE PO SCH (21:08)
[2018-09-05] MEDS: ATORVASTATIN CALCIUM 20 MG TABLET PO SCH (21:08)
--- NOTE | 2018-09-05 21:11 | PDOC PROGRESS REPORT ---
Subjective Progress Note for:: 09/05/18 Subjective:: Patient seen by the bedside, she has no more wheezing, she will require trilogy at home consultation will be obtained from pulmonary Reason For Visit: SEPSIS Physical Exam Vital Signs: Temp Pulse Resp BP Pulse Ox 98.0 F 76 21 H 138/67 H 100 09/05/18 20:00 09/05/18 12:00 09/05/18 12:00 09/05/18 12:00 09/05/18 12:00 Intake & Output 09/04/18 09/05/18 09/06/18 06:59 06:59 06:59 Intake Total 1100 3238 1598 Output Total 500 625 200 Balance 600 2613 1398 Weight 104.8 kg 106 kg General appearance: PRESENT: no acute distress Eye exam: PRESENT: PERRLA Respiratory exam: PRESENT: clear to auscultation [place] Cardiovascular exam: PRESENT: +S1, +S2 GI/Abdominal exam: PRESENT: soft Neurological exam: PRESENT: alert Results Laboratory Results: 09/04/18 06:33 09/05/18 05:10 09/05/18 05:10 Sodium 135.9 L Potassium 3.8 Chloride 98 Carbon Dioxide 34 H Anion Gap 4 L BUN 7 Creatinine 0.69 Est GFR ( Amer) > 60 Est GFR (Non-Af Amer) > 60 Glucose 165 H Calcium 8.0 L Magnesium 1.5 L 08/28/18 08/28/18 08/28/18 23:40 23:40 23:40 Creatine Kinase 77 CK-MB (CK-2) 1.90 Troponin I < 0.012 NT-Pro-B Natriuret Pep 4780 H 08/29/18 05:10 Creatine Kinase CK-MB (CK-2) Troponin I < 0.012 NT-Pro-B Natriuret Pep Impressions: Chest CT 08/29/18 00:00 IMPRESSION: 1. There is ill-defined opacification bilaterally as described. Cannot exclude an atypical pneumonia. 2. The thyroid gland is heterogeneous. Chest X-Ray 08/29/18 00:00 IMPRESSION: Tip of the central line in the right atrium. Lungs are clear copyright 2010 [email or web address]- All Rights Reserved Assessment & Plan - Diagnosis (1) Acute hypercapnic respiratory failure Is this a current diagnosis for this admission?: Yes (2) Healthcare-associated pneumonia Is this a current diagnosis for this admission?: Yes (3) Hypotension Qualifiers: Hypotension type: unspecified hypotension type Qualified Code(s): I95.9 - Hypotension, unspecified Is this a current diagnosis for this admission?: Yes (4) Sepsis Qualifiers: Sepsis type: sepsis due to unspecified organism Qualified Code(s): A41.9 - Sepsis, unspecified organism Is this a current diagnosis for this admission?: Yes (5) COPD with acute exacerbation Is this a current diagnosis for this admission?: Yes (6) Acute kidney injury Is this a current diagnosis for this admission?: Yes (7) Diabetes mellitus type 2 in obese Is this a current diagnosis for this admission?: Yes
[2018-09-06] MEDS: CODEINE SULF 30 MG TABLET PO PRN ×4 (00:10→23:00)
[2018-09-06] MEDS: ACETAMINOPHEN WITH CODEINE #3 TABLET PO PRN ×4 (00:11→23:00)
[2018-09-06] MEDS: GABAPENTIN 400 MG CAPSULE PO SCH ×3 (05:02→21:10)
[2018-09-06 05:35] LABS: BLOOD UREA NITROGEN 5 mg/dL (7-20); CALCIUM 8.5 mg/dL (8.4-10.2); GLUCOSE 164 mg/dL (75-110); POTASSIUM 3.9 mmol/L (3.6-5.0)
[2018-09-06 05:39] LABS: VANCOMYCIN,TROUGH 17.4 ug/mL (5.0-20.0)
[2018-09-06 05:40] LABS: CARBON DIOXIDE 34 mmol/L (22-30); CHLORIDE 99 mmol/L (98-107); SODIUM 138.1 mmol/L (137-145)
[2018-09-06 05:44] LABS: ANION GAP 5 (5-19)
[2018-09-06] MEDS: INSULIN LISPRO 100 UNIT/ML 3 ML VIAL SUBCUT SCH ×4 (07:52→21:10)
--- NOTE | 2018-09-06 10:48 | ST Inp Modified Barium Swallow ---
Medical Diagnosis - Medical Diagnoses Medical Diagnosis Description & ICD-10 Code(s): acute hypercapnic respiratory failure, health care associated pneumonia ST Inpatient MBS - General Date: 09/06/18 Date of Onset: 09/06/18 - History History Obtained From: Other - EMR -: Medical - per EMR: patient admitted 08/29/18 with shortness of breath and respiratory distress. Prior medical history includes COPD and recurrent pneumonia. MBSS ordered by physician, Dr. Flores, due to "dysphagia, recurrent pneumonia". Patient does report that some foods "feel like they don't go down". Medications: Medications Reviewed Allergies: Refer to medical record - Subjective Current Nutritional Means: PO Current PO Diet: Mechanical- ground - with thin liquids Current Symptoms: Pneumonia - recurrent Pain: no signs/symptoms of pain - Objective Assessment: Upright, Left Lateral - Food Trials Food Trials Used: Thin liquids, Pureed, Regular The Patient: Was Able to Self Feed, via cup, via spoon, via straw - Assessment Labial Function: Within Normal Limits Lingual Function: Within Normal Limits Mandibular Function: Within Normal Limits Dentition: Edentulous Velo-Pharyngeal Function: Unremarkable Laryngeal Function: clear voicing - Pharyngeal Stage Initiation of Pharyngeal Stage: Normal - some delay with regular solid, this appeared to be due more so to mastication time than pharyngeal swallow trigger Decreased Laryngeal Elevation: No Reduced Pressure Generation: No Reduced Tongue Base Retraction: No Pre-Swallowing Pooling in Valleculae: Moderate - with regular solid Pre-Swallowing Pooling in Pyriforms: None Reduced Thyro-Hyiod Approximation: No Reduced Epiglottic Excursion: No Reduced Pharyngeal Peristalsis: No Multiple Swallows With: Cleared w/ Liquid Assist Post Swallow Residuals in Valleculae: Moderate - with regular solid only, cleared with liquid wash easily Post Swallow Residuals in Pyriforms: None - Esophageal Stage Cricophageal Function: Normal - Impression/Summary Laryngeal Penetration: Yes, during swallow - with thin liquid trials, consistently and easily redirected above the level of the vocal folds Tracheal Aspiration: no Compensatory Strategies: Patient is already alternating solids and liquids and adding moisture to foods to aid in swallowing, is on a modified diet due to dentition. Patient Presents With: Normal swallow at eval Risk of Aspiration: Mild Risk Due To: respiratory co-morbidities - Recommendations Solid Diet Recommendations: Mechanical Soft, Ground Meat - due to dentition Liquid Diet Recommendations: Thin Strict Aspitarion Precautions: Yes Dysphagia Therapy with NETWORK SUPPORT SPECIALIST: No Recommended Techniques: Fully Upright During Meal, Alternate Bites/Sips Supervision: Independent - Time Total Time: 20 Total Timed Minutes: 20
[2018-09-06] MEDS: POTASSIUM CHLORIDE 10 MEQ CAPSULE.ER PO SCH (10:57)
[2018-09-06] MEDS: SITAGLIPTIN PHOSPHATE 50 MG TABLET PO SCH (10:57)
[2018-09-06] MEDS: METOPROLOL SUCCINATE 50 MG TAB.SR.24H PO SCH (10:58)
[2018-09-06] MEDS: DULOXETINE HCL 30 MG CAPSULE.DR PO SCH ×2 (10:59→21:10)
[2018-09-06] MEDS: ARIPIPRAZOLE 2 MG TABLET PO SCH (11:00)
[2018-09-06] MEDS: PANTOPRAZOLE SODIUM 40 MG TABLET.DR PO SCH (11:00)
[2018-09-06] MEDS: LOSARTAN POTASSIUM 50 MG TABLET PO SCH (11:00)
[2018-09-06] MEDS: FUROSEMIDE 40 MG TABLET PO SCH (11:01)
[2018-09-06] MEDS: FLUTICASONE/UMECLIDIN/VILANTER 100-62.5-25 MCG/DOSE IH SCH (11:09)
[2018-09-06] MEDS: ENOXAPARIN SODIUM INJ 40 MG/0.4 ML DISP.SYRIN SUBCUT SCH (11:10)
[2018-09-06 11:27] LABS: ARTERIAL BLOOD BASE EXCESS 5.6 mmol/L; ARTERIAL BLOOD H2CO3 1.64 mmol/L (1.05-1.35); ARTERIAL BLOOD HCO3 31.7 mmol/L (20-24); ARTERIAL BLOOD O2 SATURATION 97.9 % (94-98); ARTERIAL BLOOD PCO2 54.4 mmHg (35-45); ARTERIAL BLOOD PH 7.38 (7.35-7.45); ARTERIAL BLOOD PO2 110.1 mmHg (80-100); ARTERIAL BLOOD TOTAL CO2 33.4 mmol/L (21-25)
[2018-09-06 11:30] LABS: ARTERIAL BLOOD FIO2 3L
--- NOTE | 2018-09-06 12:02 | RADIOLOGY REPORT (SQ) ---
EXAM DESCRIPTION: SUKI SWALLOW COMPLETED DATE/TIME: 09/06/2018 10:39 am REASON FOR STUDY: dysphagia/recurrent pna COMPARISON: Cookie swallow 05/11/2016. TECHNIQUE: Videofluoroscopic swallowing examination was performed in conjunction with speech patholo gy. Videofluoroscopic imaging was obtained and reviewed and these are the findings: RADIATION DOSE: 4 minutes 27 seconds of fluoroscopy was used. 1 images saved to PACS. LIMITATIONS: None FINDINGS: The patient was brought into the fluoro room and placed upright on a modified barium swall ow chair. The patient was then given multiple consistencies mixed with barium to swallow under live fluoroscopic video guidance. According to the Speech Pathologist there was laryngeal penetration wit h thin liquids. No aspiration. IMPRESSION: LARYNGEAL PENETRATION WITH THIN LIQUIDS ONLY. NO ASPIRATION SEEN DX. PLEASE SEE SPEECH PATHOLOGIST REPORT FOR OTHER FINDINGS AND RECOMMENDATIONS. COMMENT: Quality ID [id number]: Final reports for procedures using fluoroscopy that document radiation exp osure indices, or exposure time and number of fluorographic images (if radiation exposure indices are not available) TECHNICAL DOCUMENTATION: JOB ID: [id number] [employer]- All Rights Reserved Reading location - IP/workstation name: [email or web address] [id number]
--- NOTE | 2018-09-06 20:45 | PDOC PROGRESS REPORT ---
Subjective Progress Note for:: 09/06/18 Subjective:: Patient was seen by the bedside, she was seen by pulmonary, modified barium study was done. She will require positive pressure ventilation at home on discharge Reason For Visit: SEPSIS Physical Exam Vital Signs: Temp Pulse Resp BP Pulse Ox 98.5 F 78 17 149/73 H 99 09/06/18 20:00 09/06/18 20:00 09/06/18 20:00 09/06/18 16:00 09/06/18 20:00 Intake & Output 09/05/18 09/06/18 09/07/18 06:59 06:59 06:59 Intake Total 3238 1598 Output Total 962 347 7297 Balance 2613 848 -1750 Weight 106 kg 104.9 kg General appearance: PRESENT: no acute distress Eye exam: PRESENT: PERRLA Respiratory exam: PRESENT: rhonchi Cardiovascular exam: PRESENT: +S1, +S2 GI/Abdominal exam: PRESENT: soft Neurological exam: PRESENT: alert Results Laboratory Results: 09/04/18 06:33 09/06/18 05:10 09/06/18 09/06/18 05:10 11:20 Carbonic Acid 1.64 H HCO3/H2CO3 Ratio 19:1 ABG pH 7.38 ABG pCO2 54.4 H ABG pO2 110.1 H ABG HCO3 31.7 H ABG O2 Saturation 97.9 ABG Base Excess 5.6 FiO2 3L Sodium 138.1 Potassium 3.9 Chloride 99 Carbon Dioxide 34 H Anion Gap 5 BUN 5 L Creatinine 0.65 Est GFR ( Amer) > 60 Est GFR (Non-Af Amer) > 60 Glucose 164 H Calcium 8.5 08/28/18 08/28/18 08/28/18 23:40 23:40 23:40 Creatine Kinase 77 CK-MB (CK-2) 1.90 Troponin I < 0.012 NT-Pro-B Natriuret Pep 4780 H 08/29/18 05:10 Creatine Kinase CK-MB (CK-2) Troponin I < 0.012 NT-Pro-B Natriuret Pep Impressions: Chest CT 08/29/18 00:00 IMPRESSION: 1. There is ill-defined opacification bilaterally as described. Cannot exclude an atypical pneumonia. 2. The thyroid gland is heterogeneous. Chest X-Ray 08/29/18 00:00 IMPRESSION: Tip of the central line in the right atrium. Lungs are clear copyright 2011 [employer]- All Rights Reserved Modified Barium Swallow 09/06/18 09:37 IMPRESSION: LARYNGEAL PENETRATION WITH THIN LIQUIDS ONLY. NO ASPIRATION SEEN DX. PLEASE SEE SPEECH PATHOLOGIST REPORT FOR OTHER FINDINGS AND RECOMMENDATIONS. Assessment & Plan - Diagnosis (1) Acute hypercapnic respiratory failure Is this a current diagnosis for this admission?: Yes (2) Healthcare-associated pneumonia Is this a current diagnosis for this admission?: Yes (3) Hypotension Qualifiers: Hypotension type: unspecified hypotension type Qualified Code(s): I95.9 - Hypotension, unspecified Is this a current diagnosis for this admission?: Yes (4) Sepsis Qualifiers: Sepsis type: sepsis due to unspecified organism Qualified Code(s): A41.9 - Sepsis, unspecified organism Is this a current diagnosis for this admission?: Yes (5) COPD with acute exacerbation Is this a current diagnosis for this admission?: Yes (6) Acute kidney injury Is this a current diagnosis for this admission?: Yes (7) Diabetes mellitus type 2 in obese Is this a current diagnosis for this admission?: Yes
[2018-09-06] MEDS: ATORVASTATIN CALCIUM 20 MG TABLET PO SCH (21:10)
[2018-09-07] MEDS: GABAPENTIN 400 MG CAPSULE PO SCH ×3 (06:14→21:58)
[2018-09-07] MEDS: CODEINE SULF 30 MG TABLET PO PRN ×3 (07:29→20:58)
[2018-09-07] MEDS: ACETAMINOPHEN WITH CODEINE #3 TABLET PO PRN ×3 (07:30→20:58)
[2018-09-07] MEDS: INSULIN LISPRO 100 UNIT/ML 3 ML VIAL SUBCUT SCH ×4 (07:39→21:02)
[2018-09-07] MEDS: ENOXAPARIN SODIUM INJ 40 MG/0.4 ML DISP.SYRIN SUBCUT SCH (09:48)
[2018-09-07] MEDS: PANTOPRAZOLE SODIUM 40 MG TABLET.DR PO SCH (09:49)
[2018-09-07] MEDS: SITAGLIPTIN PHOSPHATE 50 MG TABLET PO SCH (09:50)
[2018-09-07] MEDS: ARIPIPRAZOLE 2 MG TABLET PO SCH (09:50)
[2018-09-07] MEDS: FUROSEMIDE 40 MG TABLET PO SCH (09:50)
[2018-09-07] MEDS: POTASSIUM CHLORIDE 10 MEQ CAPSULE.ER PO SCH (09:51)
[2018-09-07] MEDS: METOPROLOL SUCCINATE 50 MG TAB.SR.24H PO SCH (09:52)
[2018-09-07] MEDS: DULOXETINE HCL 30 MG CAPSULE.DR PO SCH ×2 (09:55→21:58)
[2018-09-07] MEDS: LOSARTAN POTASSIUM 50 MG TABLET PO SCH (09:56)
[2018-09-07] MEDS: FLUTICASONE/UMECLIDIN/VILANTER 100-62.5-25 MCG/DOSE IH SCH (11:14)
--- NOTE | 2018-09-07 15:50 | PDOC CONSULTATION ---
Consultation Consult Date: 09/06/18 Attending physician:: TOÑA MCLEAN Provider Consulted: RANJAN BOO Consult reason:: hypercapnic resp failure History of Present Illness Admission Date/PCP: 08/29/18 02:15 TOÑA MCLEAN MD History of Present Illness: DARCY NAVA is a 73 year old female resented to the ED short of breath on CPAP she is had multiple admissions to the hospital for pneumonia patient is an exacerbation of COPD she recently was discharged from rehab after a long hospitalization. Still smoking 4 packs a day for 54 years and has an occasional cigarette from time to time she admits to having a large amounts of passive smoke as a child as well as an adolescent . she denies hemoptysis or PPD status is unknown as she might of had some asthma as a child but she is uncertain. 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 again when she is exposed large amounts of passive smoke Past Medical History Cardiac Medical History: Reports: DVT, Hypertension - ON MEDS Pulmonary Medical History: Reports: Bronchitis, Chronic Obstructive Pulmonary Disease (COPD) - USES NEB AND INHALER, Pneumonia - 2 YRS AGO Endocrine Medical History: Reports: Diabetes Mellitus Type 2 Renal/ Medical History: Reports: Chronic Kidney Disease, End Stage Renal Disease - Stage 3- NO DIALYSIS Malignancy Medical History: Reports: Ovarian Cancer - PRE-CANCEROUS, TOTAL HYST, QUINN SALPINGOOPHORECTOMY GI Medical History: Reports: Hiatal Hernia Musculoskeltal Medical History: Reports: Arthritis Psychiatric Medical History: Reports: Depression Hematology: Reports: Anemia Past Surgical History Past Surgical History: Reports: Appendectomy, Colostomy - History of colostomy revision , History of resection of the colon, Hysterectomy, Orthopedic Surgery - left shoulder, Other - Recent history of extended right hemicolectomy with end ileostomy bag, rvsd Social History Information Source: Patient, [facility] Records Lives with: Alone Smoking Status: Former Smoker Cigarettes Packs Per Day: 4 Number of Years Smokin Passive smoke exposure as: Both Frequency of Alcohol Use: None Hx Recreational Drug Use: No Drugs: None Hx Prescription Drug Abuse: No Do you have pets?: No Have you been exposed to any sick contacts recently?: No Have you had any recent respiratory illnesses?: No Have you travelled outside of [place] in the past 12 months?: No Family History Family History: COPD, DM, Malignancy - Brother with throat cancer, Other - Father with tuberculosis Parental Family History Reviewed: Yes Children Family History Reviewed: Yes Sibling(s) Family History Reviewed.: Yes Medication/Allergy Home Medications: Acetaminophen [Tylenol 325 mg Tablet] 325 mg PO Q4HP PRN 08/29/18 Acetaminophen with Codeine [Acetaminophen-Cod #4 Tablet] 1 tab PO Q6HP PRN 08/29/18 Albuterol Sulfate [Proair HFA Inhalation Aerosol 8.5 gm MDI] 1 puff IH Q4HP PRN 08/29/18 Aripiprazole [Abilify 2 mg Tablet] 2 mg PO DAILY 08/29/18 Bethanechol Chloride [Urecholine 10 mg Tablet] 10 mg PO MEALS 08/29/18 Duloxetine HCl [Cymbalta] 60 mg PO Q12 08/29/18 Empagliflozin [Jardiance] 25 mg PO DAILY 08/29/18 Fluticasone/Umeclidin/Vilanter [Trelegy 100-62.5-25 Mcg Ellipta 14 Dose/Dpi] 1 puff IH DAILY 08/29/18 Gabapentin [Neurontin] 600 mg PO Q8 08/29/18 Insulin Lispro [Humalog Kwikpen U-100] 0 units SQ .PERSLIDINGSCALE 08/29/18 Linagliptin [Tradjenta] 5 mg PO DAILY 08/29/18 Losartan Potassium [Cozaar 100 mg Tablet] 100 mg PO DAILY 08/29/18 Melatonin [Melatonin 5 mg Tablet] 5 mg PO HSP PRN 08/29/18 Metoprolol Succinate [Toprol XL 100 mg Tablet] 100 mg PO DAILY 08/29/18 Omeprazole 40 mg PO DAILY 08/29/18 Pantoprazole Sodium [Protonix [address] Tablet] 40 mg PO DAILY 08/29/18 Pitavastatin Calcium [Livalo] 4 mg PO QHS 08/29/18 Semaglutide [Ozempic] 0.5 mg SQ TH 08/29/18 Valsartan/Hydrochlorothiazide [Diovan Hct 160-25 mg Tablet] 1 tab PO DAILY 08/29/18 Allergies/Adverse Reactions: Iodinated Contrast- Oral and IV Dye Allergy (Verified 08/29/18 03:36) propoxyphene [From Darvocet-N] Allergy (Verified 08/29/18 00:23) Delirium tapentadol [From Nucynta] Allergy (Verified 08/29/18 00:23) Delirium Pork/Porcine Containing Products Adverse Reaction (Mild, Verified 08/29/18 00:23) VOMITING Review of Systems Constitutional: PRESENT: fatigue, weakness. ABSENT: chills, headache(s) Eyes: ABSENT: visual disturbances Ears: ABSENT: hearing changes Nose, Mouth, and Throat: ABSENT: mouth pain, sore throat Cardiovascular: PRESENT: dyspnea on exertion, orthropnea. ABSENT: palpitations Respiratory: PRESENT: cough, dyspnea, sputum. ABSENT: hemoptysis Gastrointestinal: ABSENT: abdominal pain, bloating, coffee ground emesis, diarrhea, hematemesis, hematochezia, melena Genitourinary: ABSENT: dysuria, hematuria Musculoskeletal: ABSENT: deformity, joint swelling Integumentary: ABSENT: pruritus, rash Neurological: ABSENT: abnormal gait, abnormal movements, abnormal speech, confusion, focal weakness, frequent falls, lack of coordination, memory loss, numbness, paresthesias Psychiatric: ABSENT: hallucinations, homidical ideation, suicidal ideation Endocrine: ABSENT: cold intolerance, heat intolerance Hematologic/Lymphatic: ABSENT: easy bruising, lymphadenopathy Allergic/Immunologic: ABSENT: seasonal rhinorrhea Physical Exam Vital Signs: Temp Pulse Resp BP Pulse Ox 98.1 F 74 25 H 127/60 H 99 09/06/18 07:16 09/06/18 07:16 09/06/18 07:16 09/06/18 07:16 09/06/18 07:16 Intake & Output 09/05/18 09/06/18 09/07/18 06:59 06:59 06:59 Intake Total 3238 1598 Output Total 307 750 Balance 2613 848 Weight 106 kg 104.9 kg General appearance: PRESENT: cooperative, disheveled, mild distress, morbidly obese Head exam: PRESENT: atraumatic, normocephalic Eye exam: PRESENT: conjunctiva pale, EOMI. ABSENT: nystagmus, periorbital swelling Mouth exam: PRESENT: dry mucosa, neck supple, tongue midline Neck exam: ABSENT: carotid bruit, full ROM, JVD, lymphadenopathy, meningismus, tenderness, thyromegaly, tracheal deviation, tracheostomy, other Respiratory exam: PRESENT: decreased breath sounds, prolonged expiratory phas, rales, rhonchi, symmetrical, unlabored. ABSENT: retraction, stridor, tachypnea Cardiovascular exam: PRESENT: RRR, +S1, +S2, tachycardia Pulses: PRESENT: normal radial pulses GI/Abdominal exam: PRESENT: soft. ABSENT: mass, tenderness Gentrourinary exam: PRESENT: indwelling catheter Extremities exam: PRESENT: pedal edema. ABSENT: calf tenderness, clubbing, joint swelling Musculoskeletal exam: ABSENT: ambulatory, deformity, dislocation Neurological exam: PRESENT: awake Psychiatric exam: PRESENT: flat affect Skin exam: PRESENT: dry, warm Results Laboratory Results: 09/04/18 06:33 09/06/18 05:10 09/06/18 05:10 Sodium 138.1 Potassium 3.9 Chloride 99 Carbon Dioxide 34 H Anion Gap 5 BUN 5 L Creatinine 0.65 Est GFR ( Amer) > 60 Est GFR (Non-Af Amer) > 60 Glucose 164 H Calcium 8.5 08/28/18 08/28/18 08/28/18 23:40 23:40 23:40 Creatine Kinase 77 CK-MB (CK-2) 1.90 Troponin I < 0.012 NT-Pro-B Natriuret Pep 4780 H 08/29/18 05:10 Creatine Kinase CK-MB (CK-2) Troponin I < 0.012 NT-Pro-B Natriuret Pep Impressions: Chest CT 08/29/18 00:00 IMPRESSION: 1. There is ill-defined opacification bilaterally as described. Cannot exclude an atypical pneumonia. 2. The thyroid gland is heterogeneous. Chest X-Ray 08/29/18 00:00 IMPRESSION: Tip of the central line in the right atrium. Lungs are clear copyright 2011 [employer]- All Rights Reserved Assessment & Plan - Diagnosis (1) Acute and chronic respiratory failure ([id number]) Qualifiers: Respiratory failure complication: hypoxia and hypercapnia Qualified Code(s): J96.21 - Acute and chronic respiratory failure with hypoxia; J96.22 - Acute and chronic respiratory failure with hypercapnia Is this a current diagnosis for this admission?: Yes Plan: despite wearing BiPAP patient has continued to have elevated PCO2's. The above patient has failed BiPAP with a patent airway. This patient would benefit from noninvasive mechanical ventilation via the trilogy AVAPS/AE and faster responding AVAPS rates. The trilogy is able to provide a target tidal volume and also adjusting the EPAP pressures to maintain a patent airway as well as an oral backup rate this machine will help improve PaCO2 levels. The severity of the patient's condition will lead to future hospitalizations and readmissions as well as life-threatening situations without the use of this device day and night. Trilogy home vent needed for hypercapnic respiratory failure. [facility] or [facility] to follow for trilogy set up. (2) Chronic pulmonary aspiration Is this a current diagnosis for this admission?: Yes Plan: admissions for recurrent pneumonia (3) Dysphasia Is this a current diagnosis for this admission?: Yes Plan: Modified barium swallow - Time Total Critical Time (Minutes): 55 - Plan Summary Plan Summary: 3 ppd x50 yrs w/o x 7 yrs
--- NOTE | 2018-09-07 17:49 | PDOC PROGRESS REPORT ---
Subjective Progress Note for:: 09/07/18 Subjective:: Patient seen by the bedside awaiting PPV device Reason For Visit: SEPSIS Physical Exam Vital Signs: Temp Pulse Resp BP Pulse Ox 97.9 F 75 20 156/77 H 100 09/07/18 16:00 09/07/18 16:00 09/07/18 16:00 09/07/18 16:00 09/07/18 16:00 Intake & Output 09/06/18 09/07/18 09/08/18 06:59 06:59 06:59 Intake Total 1598 Output Total 750 2550 Balance 848 -2550 Weight 104.9 kg 105.1 kg General appearance: PRESENT: no acute distress Eye exam: PRESENT: PERRLA Respiratory exam: PRESENT: clear to auscultation [place] Cardiovascular exam: PRESENT: +S1, +S2 GI/Abdominal exam: PRESENT: soft Neurological exam: PRESENT: alert Results Laboratory Results: 09/04/18 06:33 09/06/18 05:10 08/28/18 08/28/18 08/28/18 23:40 23:40 23:40 Creatine Kinase 77 CK-MB (CK-2) 1.90 Troponin I < 0.012 NT-Pro-B Natriuret Pep 4780 H 08/29/18 05:10 Creatine Kinase CK-MB (CK-2) Troponin I < 0.012 NT-Pro-B Natriuret Pep Impressions: Chest CT 08/29/18 00:00 IMPRESSION: 1. There is ill-defined opacification bilaterally as described. Cannot exclude an atypical pneumonia. 2. The thyroid gland is heterogeneous. Chest X-Ray 08/29/18 00:00 IMPRESSION: Tip of the central line in the right atrium. Lungs are clear copyright 2011 [employer]- All Rights Reserved Modified Barium Swallow 09/06/18 09:37 IMPRESSION: LARYNGEAL PENETRATION WITH THIN LIQUIDS ONLY. NO ASPIRATION SEEN DX. PLEASE SEE SPEECH PATHOLOGIST REPORT FOR OTHER FINDINGS AND RECOMMENDATIONS. Assessment & Plan - Diagnosis (1) Acute hypercapnic respiratory failure Is this a current diagnosis for this admission?: Yes (2) Healthcare-associated pneumonia Is this a current diagnosis for this admission?: Yes (3) Hypotension Qualifiers: Hypotension type: unspecified hypotension type Qualified Code(s): I95.9 - Hypotension, unspecified Is this a current diagnosis for this admission?: Yes (4) Sepsis Qualifiers: Sepsis type: sepsis due to unspecified organism Qualified Code(s): A41.9 - Sepsis, unspecified organism Is this a current diagnosis for this admission?: Yes (5) COPD with acute exacerbation Is this a current diagnosis for this admission?: Yes (6) Acute kidney injury Is this a current diagnosis for this admission?: Yes (7) Diabetes mellitus type 2 in obese Is this a current diagnosis for this admission?: Yes
[2018-09-07] MEDS: ATORVASTATIN CALCIUM 20 MG TABLET PO SCH (21:58)
[2018-09-08] MEDS: GABAPENTIN 400 MG CAPSULE PO SCH ×3 (05:28→21:49)
[2018-09-08] MEDS: CODEINE SULF 30 MG TABLET PO PRN ×3 (05:31→21:56)
[2018-09-08] MEDS: ACETAMINOPHEN WITH CODEINE #3 TABLET PO PRN (05:31)
[2018-09-08] MEDS: INSULIN LISPRO 100 UNIT/ML 3 ML VIAL SUBCUT SCH ×3 (08:04→21:50)
[2018-09-08] MEDS: ARIPIPRAZOLE 2 MG TABLET PO SCH (11:23)
[2018-09-08] MEDS: DULOXETINE HCL 30 MG CAPSULE.DR PO SCH ×2 (11:24→21:49)
[2018-09-08] MEDS: LOSARTAN POTASSIUM 50 MG TABLET PO SCH (11:24)
[2018-09-08] MEDS: SITAGLIPTIN PHOSPHATE 50 MG TABLET PO SCH (11:25)
[2018-09-08] MEDS: PANTOPRAZOLE SODIUM 40 MG TABLET.DR PO SCH (11:27)
[2018-09-08] MEDS: METOPROLOL SUCCINATE 50 MG TAB.SR.24H PO SCH (11:27)
[2018-09-08] MEDS: POTASSIUM CHLORIDE 10 MEQ CAPSULE.ER PO SCH (11:37)
[2018-09-08] MEDS: ENOXAPARIN SODIUM INJ 40 MG/0.4 ML DISP.SYRIN SUBCUT SCH (11:38)
[2018-09-08] MEDS: FUROSEMIDE 40 MG TABLET PO SCH (11:43)
[2018-09-08] MEDS: FLUTICASONE/UMECLIDIN/VILANTER 100-62.5-25 MCG/DOSE IH SCH (11:45)
[2018-09-08] MEDS ORDERED: ACETAMINOPHEN WITH CODEINE #3 TABLET PO PRN (15:11)
--- NOTE | 2018-09-08 20:07 | PDOC DISCHARGE SUMMARY ---
General - Admit/Disc Date/PCP Admission Date/Primary Care Provider: 08/29/18 02:15 TOÑA MCLEAN MD Discharge Date: 09/09/18 - Discharge Diagnosis (1) Acute hypercapnic respiratory failure Is this a current diagnosis for this admission?: Yes (2) Healthcare-associated pneumonia Is this a current diagnosis for this admission?: Yes (3) Hypotension Is this a current diagnosis for this admission?: Yes (4) Sepsis Is this a current diagnosis for this admission?: Yes (5) COPD with acute exacerbation Is this a current diagnosis for this admission?: Yes (6) Acute kidney injury Is this a current diagnosis for this admission?: Yes (7) Diabetes mellitus type 2 in obese Is this a current diagnosis for this admission?: Yes - Additional Information Discharge Activity: Activity As Tolerated Home Medications: Acetaminophen [Tylenol 325 mg Tablet] 325 mg PO Q4HP PRN 08/29/18 Acetaminophen with Codeine [Acetaminophen-Cod #4 Tablet] 1 tab PO Q6HP PRN 08/29/18 Albuterol Sulfate [Proair HFA Inhalation Aerosol 8.5 gm MDI] 1 puff IH Q4HP PRN 08/29/18 Aripiprazole [Abilify 2 mg Tablet] 2 mg PO DAILY 08/29/18 Bethanechol Chloride [Urecholine 10 mg Tablet] 10 mg PO MEALS 08/29/18 Duloxetine HCl [Cymbalta] 60 mg PO Q12 08/29/18 Empagliflozin [Jardiance] 25 mg PO DAILY 08/29/18 Fluticasone/Umeclidin/Vilanter [Trelegy 100-62.5-25 Mcg Ellipta 14 Dose/Dpi] 1 puff IH DAILY 08/29/18 Insulin Lispro [Humalog Kwikpen U-100] 0 units SQ .PERSLIDINGSCALE 08/29/18 Linagliptin [Tradjenta] 5 mg PO DAILY 08/29/18 Losartan Potassium [Cozaar 100 mg Tablet] 100 mg PO DAILY 08/29/18 Melatonin [Melatonin 5 mg Tablet] 5 mg PO HSP PRN 08/29/18 Metoprolol Succinate [Toprol XL 100 mg Tablet] 100 mg PO DAILY 08/29/18 Omeprazole 40 mg PO DAILY 08/29/18 Pantoprazole Sodium [Protonix [address] Tablet] 40 mg PO DAILY 08/29/18 Pitavastatin Calcium [Livalo] 4 mg PO QHS 08/29/18 Semaglutide [Ozempic] 0.5 mg SQ TH 08/29/18 Valsartan/Hydrochlorothiazide [Diovan Hct 160-25 mg Tablet] 1 tab PO DAILY 08/29/18 Gabapentin [Neurontin 400 mg Capsule] 1,200 mg PO Q8 capsule 09/08/18 History of Present Illness History of Present Illness: DARCY NAVA is a 73 year old female, She came to the emergency room last night for evaluation of shortness of breath, she was transported by EMS for evaluation of respiratory distress, she was on CPAP machine. When EMS arrived at patient's residence the oxygen saturation was in the low 80s on 3 L nasal cannula. [facility], [facility] after prolonged hospitalization. She has very severe chronic obstructive lung disease with increased predisposition to have pneumonia. In the emergency room she was evaluated and managed with the d ilators, Solu-Medrol she was also hypotensive she required boluses of IV fluid the hemogram revealed severe leukocytosis the WBC was 26,000 with a left shift there was predominantly neutrophils, chest x-ray suggests pneumonia she also was started on vasopressor in the emergency room with intravenous norepinephrine.She was also found to have azotemia, serum creatinine 1.7. Patient is well-known to me she has very severe COPD Hospital Course Hospital Course: She has very severe chronic obstructive pulmonary disease, she was admitted for the management of acute hypercapnic respiratory failure associated with healthcare associated pneumonia. She was treated empirically with IV antibiotic, bronchodilators, she also required noninvasive positive pressure ventilation, with BiPAP, She had episode of bilateral expiratory wheeze, she was not treated with intravenous Solu-Medrol because of the pneumonia Physical Exam Vital Signs: Temp Pulse Resp BP Pulse Ox 98.1 F 79 22 H 125/91 H 99 09/08/18 12:00 09/08/18 15:17 09/08/18 15:17 09/08/18 15:17 09/08/18 15:17 Intake & Output 09/07/18 09/08/18 09/09/18 06:59 06:59 06:59 Output Total 2550 1800 Balance -2550 -1800 Weight 105.1 kg 105.1 kg General appearance: PRESENT: no acute distress Head exam: PRESENT: atraumatic, normocephalic Eye exam: PRESENT: PERRLA Ear exam: PRESENT: normal external ear exam Mouth exam: PRESENT: moist, tongue midline Neck exam: PRESENT: full ROM Respiratory exam: PRESENT: clear to auscultation [place] Cardiovascular exam: PRESENT: RRR, +S1, +S2 Pulses: PRESENT: normal dorsalis pedis pul, +2 pedal pulses bilateral Vascular exam: PRESENT: normal capillary refill GI/Abdominal exam: PRESENT: normal bowel sounds, soft Rectal exam: PRESENT: deferred Neurological exam: PRESENT: alert, CN II-XII grossly intact Psychiatric exam: PRESENT: appropriate affect, normal mood Skin exam: PRESENT: dry, intact, warm. ABSENT: cyanosis, rash Results Laboratory Results: 09/04/18 06:33 09/06/18 05:10 08/28/18 08/28/18 08/28/18 23:40 23:40 23:40 Creatine Kinase 77 CK-MB (CK-2) 1.90 Troponin I < 0.012 NT-Pro-B Natriuret Pep 4780 H 08/29/18 05:10 Creatine Kinase CK-MB (CK-2) Troponin I < 0.012 NT-Pro-B Natriuret Pep Impressions: Chest CT 08/29/18 00:00 IMPRESSION: 1. There is ill-defined opacification bilaterally as described. Cannot exclude an atypical pneumonia. 2. The thyroid gland is heterogeneous. Chest X-Ray 08/29/18 00:00 IMPRESSION: Tip of the central line in the right atrium. Lungs are clear copyright 2011 [employer]- All Rights Reserved Modified Barium Swallow 09/06/18 09:37 IMPRESSION: LARYNGEAL PENETRATION WITH THIN LIQUIDS ONLY. NO ASPIRATION SEEN DX. PLEASE SEE SPEECH PATHOLOGIST REPORT FOR OTHER FINDINGS AND RECOMMENDATIONS. Qualifiers - * PATIENT BEING DISCHARGED WITH ANY OF THE FOLLOWING DIAGNOSIS: No VTE patient discharged on overlapping Therapy?: No Reason(s) for not prescribing Overlap Therapy:: Not indicated Stroke Pt being discharged on Anti-thrombolytic therapy?: No Reason(s) for not prescribing Anti-thrombolytic therapy:: Not indicated Stroke Pt being discharged on Anti-coagulation therapy?: No Reason(s) for not prescribing Anti-coagulation therapy:: Not indicated Stroke Pt being discharged on Statins?: No Reason(s) for not prescribing Statins therapy:: Not indicated [place] Pt being discharged on Aspirin therapy?: No Reason(s) for not prescribing Aspirin therapy:: Not indicated IL Pt being discharged on Statins?: No Reason(s) for not prescribing Statin therapy:: Not indicated [place] Pt discharged ACEI/ARBS?: No Reason(s) for not prescribing ACEI/ARBS:: Not indicated Acute Heart Failure - Is this a Heart Failure Patient?: No 3. Anticoagulant therapy for permanect/persistent/paraoxysmal Afib or Aflutter: N/A
[2018-09-08] MEDS: ATORVASTATIN CALCIUM 20 MG TABLET PO SCH (21:48)
[2018-09-08] MEDS: LEVALBUTEROL HCL NEB 1.25 MG/3 ML AMPUL NEB PRN (22:16)
[2018-09-09] MEDS: CODEINE SULF 30 MG TABLET PO PRN ×2 (04:25→10:47)
[2018-09-09] MEDS: GABAPENTIN 400 MG CAPSULE PO SCH ×2 (05:30→12:59)
[2018-09-09] MEDS: INSULIN LISPRO 100 UNIT/ML 3 ML VIAL SUBCUT SCH ×4 (08:06→17:18)
[2018-09-09] MEDS: ENOXAPARIN SODIUM INJ 40 MG/0.4 ML DISP.SYRIN SUBCUT SCH (09:21)
[2018-09-09] MEDS: POTASSIUM CHLORIDE 10 MEQ CAPSULE.ER PO SCH (09:22)
[2018-09-09] MEDS: DULOXETINE HCL 30 MG CAPSULE.DR PO SCH (09:22)
[2018-09-09] MEDS: LOSARTAN POTASSIUM 50 MG TABLET PO SCH (09:23)
[2018-09-09] MEDS: PANTOPRAZOLE SODIUM 40 MG TABLET.DR PO SCH (09:23)
[2018-09-09] MEDS: METOPROLOL SUCCINATE 50 MG TAB.SR.24H PO SCH (09:23)
[2018-09-09] MEDS: FUROSEMIDE 40 MG TABLET PO SCH (09:23)
[2018-09-09] MEDS: SITAGLIPTIN PHOSPHATE 50 MG TABLET PO SCH (09:24)
[2018-09-09] MEDS: ARIPIPRAZOLE 2 MG TABLET PO SCH (09:24)
[2018-09-09] MEDS: FLUTICASONE/UMECLIDIN/VILANTER 100-62.5-25 MCG/DOSE IH SCH (09:28)
[2018-09-09 17:41] VITALS: BP 116/61
--- NOTE | 2018-09-12 10:35 | PDOC PROGRESS REPORT ---
Subjective Progress Note for:: 09/07/18 Subjective:: patient sitting up in bed doing well. Reason For Visit: SEPSIS Physical Exam Vital Signs: Temp Pulse Resp BP Pulse Ox 97.5 F 81 19 116/61 98 09/09/18 16:27 09/09/18 16:27 09/09/18 16:27 09/09/18 16:27 09/09/18 16:27 General appearance: PRESENT: cooperative, disheveled, mild distress, morbidly obese Head exam: PRESENT: atraumatic, normocephalic Eye exam: PRESENT: conjunctiva pink, EOMI, PERRLA. ABSENT: scleral icterus Ear exam: PRESENT: normal external ear exam Mouth exam: PRESENT: moist, tongue midline Neck exam: ABSENT: carotid bruit, JVD, lymphadenopathy, thyromegaly Respiratory exam: PRESENT: decreased breath sounds, prolonged expiratory phas, rales, rhonchi, symmetrical, unlabored. ABSENT: wheezes Cardiovascular exam: PRESENT: RRR. ABSENT: diastolic murmur, rubs, systolic murmur Pulses: PRESENT: normal dorsalis pedis pul Vascular exam: PRESENT: normal capillary refill GI/Abdominal exam: PRESENT: normal bowel sounds, soft. ABSENT: distended, guarding, mass, organolmegaly, rebound, tenderness Rectal exam: PRESENT: deferred Extremities exam: PRESENT: full ROM. ABSENT: calf tenderness, clubbing, pedal edema Neurological exam: PRESENT: alert, awake, oriented to person, oriented to place, oriented to time, oriented to situation, CN II-XII grossly intact. ABSENT: motor sensory deficit Psychiatric exam: PRESENT: appropriate affect, normal mood. ABSENT: homicidal ideation, suicidal ideation Skin exam: PRESENT: dry, intact, warm. ABSENT: cyanosis, rash Results Laboratory Results: 09/04/18 06:33 09/06/18 05:10 08/28/18 08/28/18 08/28/18 23:40 23:40 23:40 Creatine Kinase 77 CK-MB (CK-2) 1.90 Troponin I < 0.012 NT-Pro-B Natriuret Pep 4780 H 08/29/18 05:10 Creatine Kinase CK-MB (CK-2) Troponin I < 0.012 NT-Pro-B Natriuret Pep Impressions: Chest CT 08/29/18 00:00 IMPRESSION: 1. There is ill-defined opacification bilaterally as described. Cannot exclude an atypical pneumonia. 2. The thyroid gland is heterogeneous. Chest X-Ray 08/29/18 00:00 IMPRESSION: Tip of the central line in the right atrium. Lungs are clear copyright 2011 [employer] All Rights Reserved Modified Barium Swallow 09/06/18 09:37 IMPRESSION: LARYNGEAL PENETRATION WITH THIN LIQUIDS ONLY. NO ASPIRATION SEEN DX. PLEASE SEE SPEECH PATHOLOGIST REPORT FOR OTHER FINDINGS AND RECOMMENDATIONS. Assessment & Plan - Diagnosis (1) Acute and chronic respiratory failure ([id number]) Qualifiers: Respiratory failure complication: hypoxia and hypercapnia Qualified Code (s): J96.21 - Acute and chronic respiratory failure with hypoxia; J96.22 - Acute and chronic respiratory failure with hypercapnia Is this a current diagnosis for this admission?: Yes Plan: despite wearing bipap patient has continued elevated PCO2's, patient to go home on trilogy (2) Chronic pulmonary aspiration Is this a current diagnosis for this admission?: Yes Plan: several admissions for recurrent pna (3) Dysphasia Is this a current diagnosis for this admission?: Yes Plan: ordered modified barium swallow Inpatient Scribe Statement - . Entered by Latoya Merino, acting as scribe for Dr. Flores.
--- NOTE | 2018-09-12 10:38 | PDOC PROGRESS REPORT ---
Subjective Progress Note for:: 09/08/18 Subjective:: patient sitting up in bed doing well. Reason For Visit: SEPSIS Physical Exam Vital Signs: Temp Pulse Resp BP Pulse Ox 97.5 F 81 19 116/61 98 09/09/18 16:27 09/09/18 16:27 09/09/18 16:27 09/09/18 16:27 09/09/18 16:27 General appearance: PRESENT: no acute distress, well-developed, well-nourished Head exam: PRESENT: atraumatic, normocephalic Eye exam: PRESENT: conjunctiva pink, EOMI, PERRLA. ABSENT: scleral icterus Ear exam: PRESENT: normal external ear exam Mouth exam: PRESENT: moist, tongue midline Neck exam: ABSENT: carotid bruit, JVD, lymphadenopathy, thyromegaly Respiratory exam: PRESENT: decreased breath sounds, prolonged expiratory phas, symmetrical, unlabored. ABSENT: rales, rhonchi, wheezes Cardiovascular exam: PRESENT: RRR. ABSENT: diastolic murmur, rubs, systolic murmur Pulses: PRESENT: normal dorsalis pedis pul Vascular exam: PRESENT: normal capillary refill GI/Abdominal exam: PRESENT: normal bowel sounds, soft. ABSENT: distended, guarding, mass, organolmegaly, rebound, tenderness Rectal exam: PRESENT: deferred Extremities exam: PRESENT: full ROM. ABSENT: calf tenderness, clubbing, pedal edema Neurological exam: PRESENT: alert, awake, oriented to person, oriented to place, oriented to time, oriented to situation, CN II-XII grossly intact. ABSENT: motor sensory deficit Psychiatric exam: PRESENT: appropriate affect, normal mood. ABSENT: homicidal ideation, suicidal ideation Skin exam: PRESENT: dry, intact, warm. ABSENT: cyanosis, rash Results Laboratory Results: 09/04/18 06:33 09/06/18 05:10 08/28/18 08/28/18 08/28/18 23:40 23:40 23:40 Creatine Kinase 77 CK-MB (CK-2) 1.90 Troponin I < 0.012 NT-Pro-B Natriuret Pep 4780 H 08/29/18 05:10 Creatine Kinase CK-MB (CK-2) Troponin I < 0.012 NT-Pro-B Natriuret Pep Impressions: Chest CT 08/29/18 00:00 IMPRESSION: 1. There is ill-defined opacification bilaterally as described. Cannot exclude an atypical pneumonia. 2. The thyroid gland is heterogeneous. Chest X-Ray 08/29/18 00:00 IMPRESSION: Tip of the central line in the right atrium. Lungs are clear copyright 2011 [employer]- All Rights Reserved Modified Barium Swallow 09/06/18 09:37 IMPRESSION: LARYNGEAL PENETRATION WITH THIN LIQUIDS ONLY. NO ASPIRATION SEEN DX. PLEASE SEE SPEECH PATHOLOGIST REPORT FOR OTHER FINDINGS AND RECOMMENDATIONS. Assessment & Plan - Diagnosis (1) Acute and chronic respiratory failure ([id number]) Qualifiers: Respiratory failure complication: hypoxia and hypercapnia Qualified Code(s): J96.21 - Acute and chronic respiratory failure with hypoxia; J96.22 - Acute and chronic respiratory failure with hypercapnia Is this a current diagnosis for this admission?: Yes Plan: despite wearing bipap patient has continued elevated PCO2's, patient to go home on trilogy (2) Chronic pulmonary aspiration Is this a current diagnosis for this admission?: Yes Plan: several admissions for recurrent pna (3) Dysphasia Is this a current diagnosis for this admission?: Yes Plan: ordered modified barium swallow Inpatient Scribe Statement - . Entered by Latoya Merino, acting as scribe for Dr. Flores.
--- NOTE | 2018-09-12 12:41 | PDOC PROGRESS REPORT ---
Subjective Progress Note for:: 09/07/18 Subjective:: Lethargic Reason For Visit: SEPSIS Physical Exam Vital Signs: Temp Pulse Resp BP Pulse Ox 97.9 F 81 23 H 146/102 H 93 09/07/18 12:00 09/07/18 12:00 09/07/18 12:00 09/07/18 12:00 09/07/18 12:00 Intake & Output 09/06/18 09/07/18 09/08/18 06:59 06:59 06:59 Intake Total 1598 Output Total 750 2550 Balance 848 -2550 Weight 104.9 kg 105.1 kg General appearance: PRESENT: no acute distress, disheveled, obese. ABSENT: cooperative Head exam: PRESENT: atraumatic, normocephalic Eye exam: PRESENT: conjunctiva pale, EOMI. ABSENT: nystagmus Mouth exam: PRESENT: dry mucosa, neck supple, tongue midline Neck exam: ABSENT: carotid bruit, full ROM, JVD, lymphadenopathy, meningismus, tenderness, thyromegaly, tracheal deviation, tracheostomy, other Respiratory exam: PRESENT: decreased breath sounds, prolonged expiratory phas, rales, rhonchi, unlabored. ABSENT: retraction, stridor, tachypnea Cardiovascular exam: PRESENT: irregular rhythm Pulses: PRESENT: normal radial pulses GI/Abdominal exam: PRESENT: soft. ABSENT: mass, tenderness Extremities exam: PRESENT: pedal edema. ABSENT: calf tenderness, clubbing, joint swelling Musculoskeletal exam: ABSENT: deformity, dislocation Neurological exam: PRESENT: altered Psychiatric exam: PRESENT: flat affect Skin exam: PRESENT: dry, warm Results Laboratory Results: 09/04/18 06:33 09/06/18 05:10 08/28/18 08/28/18 08/28/18 23:40 23:40 23:40 Creatine Kinase 77 CK-MB (CK-2) 1.90 Troponin I < 0.012 NT-Pro-B Natriuret Pep 4780 H 08/29/18 05:10 Creatine Kinase CK-MB (CK-2) Troponin I < 0.012 NT-Pro-B Natriuret Pep Impressions: Chest CT 08/29/18 00:00 IMPRESSION: 1. There is ill-defined opacification bilaterally as described. Cannot exclude an atypical pneumonia. 2. The thyroid gland is heterogeneous. Chest X-Ray 08/29/18 00:00 IMPRESSION: Tip of the central line in the right atrium. Lungs are clear copyright 2011 [employer]- All Rights Reserved Modified Barium Swallow 09/06/18 09:37 IMPRESSION: LARYNGEAL PENETRATION WITH THIN LIQUIDS ONLY. NO ASPIRATION SEEN DX. PLEASE SEE SPEECH PATHOLOGIST REPORT FOR OTHER FINDINGS AND RECOMMENDATIONS. Assessment & Plan - Diagnosis (1) Acute and chronic respiratory failure ([id number]) Qualifiers: Respiratory failure complication: hypoxia and hypercapnia Qualified Code(s): J96.21 - Acute and chronic respiratory failure with hypoxia; J96.22 - Acute and chronic respiratory failure with hypercapnia Is this a current diagnosis for this admission?: Yes Plan: despite wearing BiPAP patient has continued to have elevated PCO2's. The above patient has failed BiPAP with a patent airway. This patient would be nefit from noninvasive mechanical ventilation via the trilogy AVAPS/AE and faster responding AVAPS rates. The trilogy is able to provide a target tidal volume and also adjusting the EPAP pressures to maintain a patent airway as well as an oral backup rate this machine will help improve PaCO2 levels. The severity of the patient's condition will lead to future hospitalizations and readmissions as well as life-threatening situations without the use of this device day and night. Trilogy home vent needed for hypercapnic respiratory failure. [facility] or [facility] to follow for trilogy set up. (2) Chronic pulmonary aspiration Is this a current diagnosis for this admission?: Yes Plan: admissions for recurrent pneumonia (3) Dysphasia Is this a current diagnosis for this admission?: Yes Plan: Modified barium swallow substantiated laryngeal penetration - Time Total Critical Time (Minutes): 45
== END 2018-09-09 19:18 | disposition home or self-care (01) | DRG 871 ==
LOC: ER 23:39 → EH 08-29 02:15 → ICU 08-29 04:25 → 4N 09-08 16:03
PROVIDERS: ADMIT Internal Medicine; ATTEND Internal Medicine
PROC: 5A09557 Assistance with Respiratory Ventilation, Greater than 96 Consecutive Hours, Continuous Positive Airway Pressure (ICD-10-PCS; principal; 2018-08-28)
PROC: 02H633Z Insertion of Infusion Device into Right Atrium, Percutaneous Approach (ICD-10-PCS; 2018-08-29)
DX: A41.9 Sepsis, unspecified organism (principal); J18.1 Lobar pneumonia, unspecified organism; J96.02 Acute respiratory failure with hypercapnia; J44.1 Chronic obstructive pulmonary disease with (acute) exacerbation; J44.0 Chronic obstructive pulmonary disease with (acute) lower respiratory infection; N17.9 Acute kidney failure, unspecified; I95.9 Hypotension, unspecified; I10 Essential (primary) hypertension; E11.22 Type 2 diabetes mellitus with diabetic chronic kidney disease; N18.3 Chronic kidney disease, stage 3 (moderate); F32.9 Major depressive disorder, single episode, unspecified; E66.01 Morbid (severe) obesity due to excess calories; D63.1 Anemia in chronic kidney disease; R65.20 Severe sepsis without septic shock; Z79.899 Other long term (current) drug therapy; Z79.4 Long term (current) use of insulin; Z79.1 Long term (current) use of non-steroidal anti-inflammatories (NSAID); Z86.718 Personal history of other venous thrombosis and embolism; Z85.43 Personal history of malignant neoplasm of ovary; Z90.49 Acquired absence of other specified parts of digestive tract; Z60.2 Problems related to living alone; Z87.891 Personal history of nicotine dependence; Z88.6 Allergy status to analgesic agent; Z91.041 Radiographic dye allergy status; Z91.018 Allergy to other foods; Z86.14 Personal history of Methicillin resistant Staphylococcus aureus infection; Z78.1 Physical restraint status; Z83.3 Family history of diabetes mellitus
CPT/HCPCS: 36415; 71045; 71250; 74230; 80048; 80053; 80202; 81001; 82550; 82553; 82565; 82803; 82962; 83036; 83605; 83735; 83880; 83930; 83935; 84300; 84484; 85025; 85610; 87040; 87070; 87086; 93005; 93010; 94640; 94660; 96365; 99291; 99292; C1751; J1650; J1815; J1940; J1956; J2543; J3370; J3475; J3480; J3490; J7030; J7050; J7060; J7120